=== PATIENT | female | born 1975 | race Caucasian/White ===

== ENCOUNTER 2023-05-01 16:07 | Outpatient (OUT) | payer OTHER, SELFPAY ==
--- NOTE | 2023-05-01 | XR_ITS ---
The [address] [address] Patient Name: AHMET DAVIDSON MRN: [id number] date: 1975 Sex: F Assigned Patient Location: [facility] Current Patient Location: Accession/Order Number: [id number] Exam Date: 05/01/2023 16:25 Report Date: 05/02/2023 07:13 At the request of: ALEX NESBITT Procedure: XR abdomen 1V EXAMINATION: XR abdomen 1V HISTORY: Kidney Stone follow-up COMPARISON: XR KUB 04/16/2022 FINDINGS: KIDNEY/URETER - RIGHT: No visible renal or ureteral calcifications. KIDNEY/URETER - LEFT: No visible renal or ureteral calcifications. PELVIS: Numerous pelvic calcifications; grossly stable and favoring phleboliths. No appreciable ureteral stones. BOWEL: No abnormal dilation or deviation. BONES: No acute abnormality. OTHER: Negative. No abnormal gaseous collections. XR/XR abdomen 1V IMPRESSION: 1. No appreciable urinary tract calculi. 2. Evaluation of kidneys is limited by dense overlying bowel content. Electronically authenticated by: MUSA MOORE Date: 05/02/2023 07:13
== END 2023-05-01 16:08 | disposition home or self-care (01) ==
LOC: RAD 16:11
PROVIDERS: PCP Family Medicine; Visit Provider Physician Assistant
DX: N20.0 Calculus of kidney (principal)
CPT/HCPCS: 74018

== ENCOUNTER 2023-09-16 08:47 | Outpatient (OUT) | payer OTHER, SELFPAY ==
--- NOTE | 2023-09-16 | CT_ITS ---
[address] [address] Patient Name: AHMET DAVIDSON MRN: [id number] date: 1975 Sex: F Assigned Patient Location: CT Current Patient Location: Accession/Order Number: [id number] Exam Date: 09/16/2023 10:10 Report Date: 09/18/2023 09:00 At the request of: RADHA ESPARZA Procedure: CT abdomen pelvis w con EXAMINATION: CT abdomen pelvis w con HISTORY: Kidney stones COMPARISON: No relevant comparison available. TECHNIQUE: Axial, Coronal, and Sagittal images were obtained without and/or with IV contrast as indicated by examination type. Dose reduction techniques were achieved by using automated exposure control and/or adjustment of mA and/or kV according to patient size and/or use of iterative reconstruction technique. FINDINGS: LUNG BASES: No visible pulmonary or pleural disease. LIVER: No enlargement, atrophy, suspicious density, or significant focal lesion. BILIARY: No dilatation or calcification. PANCREAS: No lesion, fluid collection, or abnormal duct dilatation. SPLEEN: No enlargement or focal lesion. ADRENALS: No mass or enlargement. KIDNEYS: Several nonobstructing 2 mm stones within left kidney. Unremarkable right kidney and bilateral ureters. No mass, obstruction, or calcification. BOWEL/MESENTERY: No visible mass, obstruction, or bowel wall thickening. Normal appendix. AORTA/VASCULAR: No aneurysm or dissection. RETROPERITONEUM: No mass or adenopathy. LYMPH NODES: No adenopathy. URINARY BLADDER: No visible focal wall thickening, lesion, or calculus. PELVIC ORGANS: Hysterectomy. ABDOMINAL WALL: No mass or hernia. BONES: No bony lesion or fracture. OTHER: Negative. CT/CT abdomen pelvis w con IMPRESSION: 1. Nonobstructing left nephrolithiasis. Electronically authenticated by: MUSA MOORE Date: 09/18/2023 09:00
--- OUTSIDE RECORDS SUMMARY | 2023-09-16 08:50 | XMS_ITS | CCD ---
Author Organization [facility] Care Team Providers Care Steeping Press Operator Name Role Phone MUSA EVANGELISTA Primary Care Physician DO Musa Evangelista Primary Care Provider MD Tsering Velez Attending Provider [phone] VIKTORIA BIRMINGHAM Admitting Unavailable JEAN CARLOS, DR VIGIL Primary Care Unavailable VIKTORIA BIRMINGHAM Attending Unavailable VIKTORIA BIRMINGHAM Consulting Unavailable JEAN CARLOS, DR VIGIL Primary Care Unavailable AGUSTIN, DR SANDERS Attending Unavailable AGUSTIN, DR SANDERS Consulting Unavailable AGUSTIN, DR SANDERS Admitting Unavailable JEAN CARLOS, DR VIGIL Primary Care Unavailable ISAIAS ., DR GARCIA Attending Unavailable ISAIAS ., DR GARCIA Consulting Unavailable ISAIAS ., DR GARCIA Admitting Unavailable NAMITA, DR WERNER Matthews Consulting Unavailable JEAN CARLOS, DR VIGIL Primary Care Unavailable AGUSTIN, DR SANDERS Attending Unavailable AGUSTIN, DR SANDERS Admitting Unavailable Viktoria [place] Unavailable Sandra Albarran Unavailable DO Musa Evangelista Primary Care Provider GEORGIA [place] Attending Provider ViscDO Emy merino Attending Provider Viktoria [place] Admitting Unavailable Viktoria [place] Attending Unavailable Musa Evangelista Primary Care Unavailable Musa Evangelista [facility] Care Unavailable Viscangelique, Emy Admitting Unavailable Viscangelique, Emy Attending Unavailable Tsering Velez Admitting Unavailable Tsering Velez Attending Unavailable Musa Evangelista [facility] Care Unavailable Viscangelique, Emy Attending Unavailable Musa Evangelista [facility] Care Unavailable Viscangelique, Emy Admitting Unavailable VISCAngelique, EMY Diaz Attending Unavailable ELIE, EMY Diaz Attending Unavailable TSERING VELEZ Referring Unavailable Marshall RIZVI Attending Unavailable BERNADETTE NESBITT Attending Marshall Liu Attending Unavailable Marshall RIZVI Admitting Unavailable Marshall RIZVI Attending Unavailable Marshall RIZVI Attending Unavailable BERNADETTE NESBITT Attending Celia Mcneal Primary Care Unavailable Celia Eason Attending Unavailable Unavailable Unavailable Unavailable Allergies Allergy Classification Reported Allergen(s) Allergy Type Date of Onset Reaction(s) Facility (20 sources) Azithromycin; Translations: [azithromycin] Drug Allergy 06-21-19 11 Vomiting (disorder), Diarrhea (finding) [facility] (6 sources) Sulfamethoxazole; Translations: [sulfamethoxazole ] Drug Allergy [facility] (5 sources) Sulfonamides (Antibiotic); Translations: [Sulfa (Sulfonamide Antibiotics)] Allergy to substance 07-29-19 23 Rash, Rash, [facility] (3 sources) Azithromycin; Translations: [Zithromax] Drug Allergy [facility] (2 sources) Sulfonamides (Antibiotic) Drug allergy (disorder) [facility] (9 sources) Substance with sulfonamide structure and antibacterial mechanism of action (substance) Drug allergy [facility] Other (1 source) Azithromycin Drug Allergy 06-22-19 24 [facility] Repository (1 source) Cephalosporins (Antibiotic); Translations: [cephalosporins] Propensity to adverse reactions to drug (disorder) [facility] Repository Medications Current Medications Medication Drug Class(es) Dates Sig (Normalized) Sig (Original) 0.5 ML semaglutide 0.5 MG/ML Auto-Injector [Wegovy] (6 sources) Start: 12-27-2022 Start: 12-27-2022 inject 0.5 mL by sub cutaneous injection every week Wegovy 0.25 MG/0.5ML 0.5 mL Subcutaneous weekly for 30 days Dec, Active inject 0.5 mL by sub cutaneous injection every week Wegovy 0.25 MG/0.5ML 0.5 mL Subcutaneous weekly for 30 days NOT COVERED Active acetaminophen 325 mg / HYDROcodone bitartrate 5 mg oral tablet (2 sources) Opioid Agonist Start: 01-19-2024 take 1 tablet by mouth every six hours Hydrocodone-Acetaminophen Active 1 TAB PO Q6H 12 July 07, 2023 atorvastatin 10 mg oral tablet (17 sources) HMG-CoA Reductase Inhibitor Start: 07-29-2022 take 10 mg by mouth once daily in the morning Atorvastatin Active 10 MG PO Every morning July 29, 2022 12:00am Start: 06-20-2019 atorvastatin O ral, Daily, Refills(s) 0 Start Date: 06/20/19 Status: Ordered Calcium (4 sources) Phosphate Binder, Calcium Start: 05-16-2011 Calcium 600+D Oral, BID, Refill(s) 0, Prophylaxis Start Date: 05/16/11 Status: Ordered calcium carbonate 1500 mg / cholecalciferol 200 unt oral tablet (3 sources) Vitamin D Start: 06-22-2023 take 1 tablet by mouth once daily at bedtime Calcium Carbonate-Vitami n D3 Active 1 TAB PO Daily at bedtime June 22, 2023 12:00am cephalexin 500 mg oral capsule (9 sources) Cephalosporin Antibacterial Start: 06-22-2023 take 500 mg by mouth twice daily Cephalexin Active 500 MG PO Twice daily June 22, 2023 3:54pm Start: 06-20-2023 take 1 tablet by juan th twice daily, then take 1 tablet by mouth once daily cephalexin 500 mg oral tablet See Instructions, Take one tab, twice a day for 2 weeks, then take one tab daily for 1 month., # 58 tab(s), Refills(s) 0, Pharmacy: [facility] #[id number], 172, cm, 06/20/23 15:54:00 EST, Height/Length Dosing, 84, kg, 06/20/23 15:54:00 EST, Weight Dosing Start Date: 06/20/23 Status: Ordered Start: 07-29-2022 End: 06-22-2023 take 500 mg by mouth every six hours Cephalexin Discontinued 500 MG PO Q6H 28 July 29, 2022 12:00am June 22, 2023 3:54pm glucosamine sulfate 500 mg oral tablet (3 sources) Start: 06-22-2023 take 1 tablet by mouth twice daily Glucosamine Sulfate (Glucosamine) 500 mg Tablet Active 500 MG PO Twice daily June 22, 2023 12:00am lactobacillus acidophilus [id number] unt oral capsule (3 sources) Start: 06-22-2023 take 10 capsules by mouth once daily in the morning Lactobacillus Acidophilus (Probiotic) 10 billion cell Capsule Active 10 CELL PO Every morning June 22, 2023 12:00am levothyroxine sodium 0.05 mg oral tablet (17 sources) l-Thyrox ine Start: 07-29-2022 take 50 ug by mouth once daily in the morning Levothyroxine Active 50 MCG PO Every morning July 29, 2022 12:00am Start: 04-24-2020 levothyroxine 50 mcg (0.05 mg) Tab Refills(s) 0 Start Date: 04/24/20 Status: Ordered 3 ml liraglutide 6 mg/ml pen injector (10 sources) GLP-1 Receptor Agonist Start: 06-22-2023 Liraglutide (Victoza 3-Julius) 0.6 mg/0.1 mL (18 mg/3 mL) pen injector Active 1.2 MG SUBCUT Every morning June 22, 2023 12:00am Start: 05-02-2023 Victoza 6 mg/m L subcutaneous injection Refills(s) 0 Start Date: 05/02/23 Status: Ordered Start: 02-15-2023 inject 0.6 mg by sub cutaneous injection once daily, then inject 1.8 mg by subcutaneous injection once daily Victoza 18 MG/3ML 0.6 mg Subcutaneous daily for 30 days increase weekly by 0.6 mg to max dose of 1.8 mg daily Hold escalating for toleration issues and call prescriber for instructions. Jan, Active inject 1.8 mg by sub cutaneous injection once daily Victoza 18 MG/3ML 1.8 mg Subcutaneous daily for 30 days Active Magnesium glycinate (3 sources) Start: 06-22-2023 take 3000 mg by mouth once daily at bedtime Magnesium Glycinate Active 3000 MG PO Daily at bedtime June 22, 2023 12:00am 24 hr metFORMIN hydrochloride 500 mg extended release oral tablet (14 sources) Biguanide Start: 06-22-2023 take 1000 mg by mouth twice daily Metformin Active 1000 MG PO Twice daily June 22, 2023 12:00am Start: 05-02-2023 metformin Oral Start Date: 05/02/23 Status: Ordered Start: 12-06-2022 take 2 tablets by [facility] twice daily at mealtime, then take 2 tablets by mouth twice daily at mealtime metFORMIN HCl ER 500 MG 2 tabs twice daily with meals Orally twice daily for 30 days Start 1 tab daily increasing weekly to 2 tabs twice daily with meals. Hold at tolerated dose if side effects Nov, Active Start: 12-06-2022 Multi For Her - (9 sources) Multi For Her - as directed Orally Active Multivitamin preparation (3 sources) Start: 06-22-2023 take 1 tablet by mouth once daily in the morning Multivitamin Active 1 TAB PO Every morning June 22, 2023 12:00am 24 hr oxybutynin chloride 10 mg extended release oral tablet (15 sources) Cholinergic Muscarinic Antagonist Start: 07-29-2022 take 1 tablet by mouth once daily oxybutynin 10 mg ER Tab 10 mg = 1 tab(s), Oral, Daily, # 30 tab(s), Refills(s) 11, Pharmacy: [facility] #[id number], 172, cm, 05/02/23 15:11:00 EST, Height/Length Dosing, 84, kg, 05/02/23 15:11:00 EST, Weight Dosing Start Date: 05/23/23 Status: Ordered Potassium Bicarb-Citric Acid (Klor-Con/Ef) 25 mEq tablet, effervescent (4 sources) Start: 07-29-2022 Potassium Bicarb-Citric Acid (Klor-Con/Ef) 25 mEq tablet, effervescent Active 25 MEQ PO Twice daily July 29, 2022 12:00am probiotic (9 sources) probiotic as dir ected Active sertraline 100 mg oral tablet (17 sources) Serotonin Reuptake Inhibitor Start: 05-16-2011 take 1 tablet by mouth once daily Zoloft 100 mg Tab 100 mg = 1 tab(s), Oral, Daily, tab(s), Refills(s) 0, Depression Start Date: 05/16/11 Status: Ordered Completed/Discontinued Medications Medication Drug Class(es) Dates Sig (Normalized) Sig (Original) ciprofloxacin 500 mg oral tablet (2 sources) Quinolone Antimicrobial Start: 05-02-2023 Cipro 500 mg Tab 500 mg = 1 tab(s), Oral, As Directed, Pt to take 1 tab the day before procedure and the 2nd tab the day of procedure once completed., # 2 tab(s), Refills(s) 0, Pharmacy: [id number], 172, cm, 05/02/23 15:11:00 EST, Height/Length Dosing, 84, kg, 05/02/23 15:11:00 EST, Weight Dosing Start Date: 05/02/23 Status: Ordered Effer-K 25 mEq oral tablet, effervescent (2 sources) Start: 04-26-2022 take 1 tablet by mouth twice daily Effer-K 25 mEq oral tablet, effervescent 25 mEq = 1 tab(s), Oral, BID, # 60 tab(s), Refills(s) 11, Pharmacy: [facility] #[id number], 172, cm, 02/19/21 8:12:00 EDT, Height/Length Dosing, 84.5, kg, 02/19/21 8:12:00 EDT, Weight Dosing Start Date: 04/26/22 Status: Ordered ibuprofen 800 mg oral tablet (4 sources) Nonsteroidal Anti-inflammatory Drug Start: 07-29-2022 End: 06-22-2023 take 800 mg by mouth four times daily Ibuprofen Discontinued 800 MG PO Four times daily July 29, 2022 12:00am June 22, 2023 3:48pm K-Effervescent 25 mEq oral tablet, effervescent (2 sources) Start: 04-22-2023 End: 04-16-2024 take 1 tablet by mouth twice daily K-Effervescent 25 mEq oral tablet, effervescent 25 mEq = 1 tab(s), Oral, BID, X 30 day(s), # 60 tab(s), Refills(s) 11, Pharmacy: [facility] #[id number], 172, cm, 04/27/22 15:12:00 EST, Height/Length Dosing, 84, kg, 04/27/22 15:12:00 EST, Weight Dosing Start Date: 04/22/23 Stop Date: 04/16/24 Status: Ordered potassium bicarbonate 25 meq effervescent oral tablet (11 sources) Start: 04-26-2022 take 1 tablet by mouth twice daily Effer-K 25 mEq oral tablet, effervescent 25 mEq = 1 tab(s), Oral, BID, # 60 tab(s), Refills(s) 11, Pharmacy: [facility] #[id number], 172, cm, 02/19/21 8:12:00 EDT, Height/Length Dosing, 84.5, kg, 02/19/21 8:12:00 EDT, Weight Dosing Start Date: 04/26/22 Status: Ordered Vitamin D 50,000 intl units (1.25 mg) oral capsule (4 sources) Start: 05-16-2011 Vitamin D 50,000 intl units (1.25 mg) oral capsule 50,000 International_Unit = 1 cap(s), Oral, q7day, cap(s), Refills(s) 0, Prophylaxis Start Date: 05/16/11 Status: Ordered wegovy 0.25 mg/0.5ml solution auto-injector (3 sources) inject 0.5 mL by subcutaneous injection every week as needed Wegovy 0.25 MG/0.5ML 0.5 mL Subcutaneous weekly for 30 days NOT COVERED Not-Taking/PRN Problems Active Problems Problem Classification Problem Date Documented Da te Episodic/Chronic Calculus of urinary tract (7 sources) Kidney stone; Translations: [Calculus of kidney] Onset: 04-20-2022 Episodic Cancer of breast (4 sources) Malignant tumor of breast 08-30-2013 Chronic Cancer of breast (13 sources) Personal history of primary malignant neoplasm of breast; Translations: [Personal history of malignant neoplasm of breast] Episodic Diabetes mellitus without complication (7 sources) Other abnormal glucose; Translations: [Prediabetes] Onset: 11-14-2022 Episodic Disorders of lipid metabolism (20 sources) Hyperlipidemia; Translations: [Hyperlipidemia, unspecified] Onset: 11-11-2022 06-20-2019 Chronic Genitourinary symptoms and ill-defined conditions (7 sources) Urge incontinence; Translations: [Urge incontinence of urine] Onset: 04-20-2022 Chronic Genitourinary symptoms and ill-defined conditions (16 sources) Blood in urine; Translations: [Increased frequency of urination] 06-20-2019 Episodic Menopausal disorders (1 source) Postmenopausal bleeding; Translations: [Postmenopausal bleeding] Onset: 07-29-2022 Chronic Menstrual disorders (1 source) Excessive and frequent menstruation with regular cycle; Translations: [Excessive and frequent menstruation with regular cycle] Onset: 07-07-2023 Chronic Non-Hodgkin`s lymphoma (4 sources) Diffuse non-Hodgkin's lymphoma, lymphoblastic (clinical) 08-30-2013 Chronic Nutritional deficiencies (15 sources) Vitamin D deficiency; Translations: [Vitamin D deficiency, unspecified] Chronic Other bone disease and musculoskeletal deformities (4 sources) Osteopenia 08-30-2013 Episodic Other diseases of bladder and urethra (1 source) Male urethral stricture; Translations: [Unspecified urethral stricture, male, unspecified site] Onset: 06-14-2023 Episodic Other diseases of bladder and urethra (2 sources) Urethral stricture 05-02-2023 Episodic Other nervous system disorders (2 sources) Acute postoperative pain; Translations: [Other acute postprocedural pain] 07-07-2023 Episodic Other nervous system disorders (1 source) Other acute postprocedural pain; Translations: [Other acute postprocedural pain] Onset: 07-07-2023 Episodic Other nutritional; endocrine; and metabolic disorders (10 sources) Obesity, unspecified; Translations: [Obesity, unspecified] Onset: 11-14-2022 Chronic Other nutritional; endocrine; and metabolic disorders (20 sources) Obesity; Translations: [Obesity, unspecified] 08-08-2023 Chronic Other nutritional; endocrine; and metabolic disorders (9 sources) Body mass index 40+ - severely obese; Translations: [Body mass index (BMI) 40.0-44.9, adult] Chronic Other nutritional; endocrine; and metabolic disorders (9 sources) Body mass index 30+ - obesity; Translations: [Body mass index (BMI) 30.0-30.9, adult] Chronic Other nutritional; endocrine; and metabolic disorders (1 source) Body mass index (BMI) 30.0-30.9, adult Chronic Other nutritional; endocrine; and metabolic disorders (1 source) Body mass index (BMI) 29.0-29.9, adult Episodic Other nutritional; endocrine; and metabolic disorders (2 sources) Body mass index (BMI) 28.0-28.9, adult; Translations: [Body Mass Index 28.0-28.9, adult] Episodic Other nutritional; endocrine; and metabolic disorders (1 source) Overweight in adulthood with body mass index of 25 or more but less than 30; Translations: [Body mass index (BMI) 28.0-28.9, adult] 08-08-2023 Episodic Residual codes; unclassified (4 sources) Family history of diabetes mellitus Episodic Residual codes; unclassified (1 source) Acquired absence of both cervix and uterus; Translations: [Acquired absence of both cervix and uterus] 08-08-2023 Episodic Thyroid disorders (20 sources) Hypothyroidism; Translations: [Thyroid nodule] 04-24-2020 Chronic Unclassified (1 source) Encounter for preprocedural laboratory examination; Translations: [Encounter for preprocedural laboratory examination] Onset: 06-22-2023 Unclassified (1 source) Dietary counseling and surveillance; Translations: [Dietary counseling and surveillance] Onset: 06-13-2023 Urinary tract infections (11 sources) Chronic cystitis; Translations: [Other chronic cystitis without hematuria] Onset: 04-16-2022 Chronic Past or Other Problems Problem Classification Problem Date Documented Da te Episodic/Chronic Other endocrine disorders (1 source) Endocrine disorder, unspecified; Translations: [ENDOCRINE DISORDER UNSPECIFIED] Onset: 04-20-2022 Episodic Unclassified (4 sources) STRESS FRACTURE RIGHT ANKLE 05-16-2011 Results Test Name Value Interpretation Reference Range Facility Outside [facility] 08-28-2023 Outside Records [id number]. [facility] C Urineon 08-25-2023 Bacteria identified Cx Nom (U) Microbiology PROCEDURE: Urine Culture [R1] SOURCE: U CleanCatch BODY SITE: COLLECTED DATE/TIME: 08/22/2023 10:48 EST RECEIVED DATE/TIME: 08/22/2023 18:04 EST START DATE/TIME: 08/22/2023 18:04 EST FREE TEXT SOURCE: ISAIAS SMITH, Marshall RIZVI MD, Marshall Conti FINAL REPORTS Final Report [] Verified Date/Time: 08/25/2023 11:33 EST >100,000 cfu/ml Escherichia coli <10,000 cfu/ml Mixed skin contaminants SUSCEPTIBILITY RESULTS __ LEGEND: S=Susceptible, N/R=Not Reported, Blank=Data not available, or drug not advisable or tested, I=Intermediate, ESBL=Extended spectrum beta-lactamase, R=Resistant, TFG=Thymidine-dependen t strain, PHILIP=Beta-lactamase positive, ARMEN=mcg/m;(mg/L), S*=Predicted susceptible interp, R*=Predicted resistant interp EC Antibiotic ARMEN Dilutn ARMEN Interp Amikacin <=16 S Ampicillin <=8 S Ampicillin/ <=8/4 S Sulbactam Aztreonam <=4 S Cefazolin <=2 S Cefepime <=2 S Cefoxitin <=8 S Ceftazidime <=1 S Ceftazidime/ <=8 S Avibactam Ceftriaxone <=1 S Ciprofloxacin >2 R Ertapenem <=0.5 S Gentamicin <=4 S Levofloxacin >4 R Meropenem <=1 S Nitrofurantoin >64 R Piperacillin/ <=16 S Tazobactam Tetracycline <=4 S Tigecycline <=2 S Tobramycin <=4 S Trimethoprim/ <=2/38 S Sulfa Performing Locations R1: This test was performed at: [facility], [address] [place] [address], [facility] , , [facility] Comment on above: Performed By: #### 2 [id number] ####[place] [address] Lab - Other Lab [facility] Lab - Other Lab Results [id number] [facility] Ambulatory Visit Summaryon 0 08-21-2023 Ambulatory Visit Summary NICOLETTE EVANGELISTA :1975 Visit Date:08/21/2023 Ambulatory Visit Instructions Your Diagnosis Chronic cystitis Your Care Team Attending Physician - ISAIAS SMITH, Marshall Conti Primary Care Physician - MUSA EVANGELISTA DO This Is Your Medications List atorvastatin calcium-vitamin D (Calcium 600+D) cephalexin (cephalexin 500 mg oral tablet) ciprofloxacin (Cipro 500 mg Tab) ergocalciferol (Vitamin D 50,000 intl units (1.25 mg) oral capsule) levothyroxine (levothyroxine 50 mcg (0.05 mg) Tab) liraglutide (Victoza 6 mg/mL subcutaneous injection) metformin oxybutynin (oxybutynin 10 mg ER Tab) potassium bicarbonate (Effer-K 25 mEq oral tablet, effervescent) potassium bicarbonate (K-Effervescent 25 mEq oral tablet, effervescent) sertraline (Zoloft 100 mg Tab) Procedures Performed Cystourethroscopy with dilation of urethral stricture (06/20/2023), Cystoscopy (07/16/2019), Cystourethroscopy with dilation of urethral stricture (07/16/2019), BILATERAL MASTECTOMY WITH TISSUE AIR MOVING TECHNICIAN INSERTION, bladder suspension, ESWL KIDNEY STONE X2, LEFT KNEE RECONSTRUCTIVE SURGERY, PARATHYROID GLAND EXCISION, Part of lobe of thyroid gland. What to do next Scheduled Follow-Up Appointments Monday. 2023 2:45 PM EDT With: ISAIAS SMITH, Marshall Conti Where: [facility] HCG ( test) IA.rapi d Ql (U)Ordered By: Jesús Andrew on 07-07-2023 HCG ( test) Ql (U) Negative [facility] HCG,Urineon 07-07-2023 Beta HCG ( test) Ql (U) Negative [facility] Comment on above: Result Comment: PERF ORMED BY: [facility] [address] [place] [address] PATHOLOGIST BEHAVIORAL ASSISTANT GRACY BARRY M.D. Performed By: #### U HCG #### [facility] [address] [id number] [place] Kermit 07-07-2023 L Specimen: [id number] Received: 07/07/23 Status: SUBHASH Valdes Num: [id number] Spec Type: Surgical Subm Dr: Emy Delgadillo DO Tissues: A Uterus w/ or w/o tubes ovaries except neoplastic or prolap (CERVIX, MARIS TU Procedures: HE/12, Gross/Micro L5 Age/ Patient Sex Location Account Attending Physician Nicolette Evangelista 48/F OR [id number] Emy Delgadillo DO SPEC NUM: [id number] RECD: 07/07/23 STATUS: SUBHASH VALDES NUM: [id number] UMESH: 07/07/[address]: Emy Delgadillo DO ENTERED: 07/07/[address] [facility] [address]: SPEC TYPE: Surgical DEPT: S ORDERED: HE/, Gross/Micro L5 ORDERED: HE, Gross/Micro L5 Pathological Diagnosis Uterus, cervix, bilateral adnexa, complete hysterectomy: Fundus: - Benign proliferative phase endometrium with no hyperplasia or chronic endometritis. - Multiple benign leiomyomata. Cervix: - Unremarkable endocervical and ectocervical mucosa. Bilateral adnexa: - Unremarkable fallopian tubes with small benign paratubal cysts. - Senescent, benign ovaries. Clinical Information Menorrhagia, enlarged fibroid uterus Gross Description Received in formalin labeled with the patient's name, date of and uterus, cervix, bilateral tubes and ovaries is a 9.8 x 7 x 6.2 cm uterus with attached bilateral adnexa. After removal of the adnexa, the uterus is 192 g. The serosa is pink-dyson and glistening with multiple subserosal nodules predominantly along the fundic and posterior aspect. The largest subserosal nodule is 2.1 cm in greatest dimension. The cervix is 3.5 cm in diameter and demonstrates pink-white glistening ectocervical mucosa. There is a 1.3 cm linear os and a discrete transition zone leading into a 3.2 cm long endocervical canal. The endometrial cavity is 4.2 cm cornu to cornu by 4.5 cm fundus to lower uterine segment. The endometrium is 0.1 cm thick red-brown and velvety. The myometrium is 3 cm in average thickness with ---- Specimen: [id number] Received: 07/07/23 Status: SUBHASH Valdes Num: [id number] Spec Type: Surgical Subm Dr: Emy Delgadillo DO Tissues: A Uterus w/ or w/o tubes ovaries except neoplastic or prolap (CERVIX, MARIS TU Procedures: , Gross/Micro L5 ---- Patient: Nicolette Evangelista [id number] (Continued) ---- Specimen: [id number] Received: 07/07/23 (Continued) Gross Description (Continued) Signed (signature on file) Erin Cardenas MD 07/10/23 1302 ---- Specimen: [id number] Received: 07/07/23 Status: SUBHASH Valdes Num: [id number] Spec Type: Surgical Subm Dr: Emy Delgadillo, Tissues: A Uterus w/ or w/o tubes ovaries except neoplastic or prolap (CERVIX, MARIS TU Procedures: , Gross/Micro L5 ---- Patient: Nicolette Evangelista [id number] (Continued) ---- Specimen: [id number] Received: 07/07/23 (Continued) Gross Description (Continued) multiple well-circumscribed white-dyson to dyson whorled nodules up to 2.5 cm in greatest dimension. The largest nodule is located anteriorly and demonstrates a small amount of central yellow softening potentially representing necrosis. Additionally, the myometrium is vaguely whorled and trabeculated throughout. The right adnexa is 8 g and consists of a 7 cm long by 0.6 cm diameter segment of fimbriated fallopian tube and a 2.5 x 1.8 x 1.2 cm ovary. The left adnexa is 10 g and consists of a 6.2 cm long by 0.7 cm diameter segment of fimbriated fallopian tube and a 3.2 x 2.5 x 1.5 cm ovary. Bilaterally, the serosa fallopian tubes is purple-dyson and glistening. The fimbria are purple-dyson lush, prominent, but otherwise unremarkable. Within the left ovary is a prominent 2 cm diameter unilocular cyst filled with thin red-brown fluid. Solar Engineer sections are submitted in 12 cassettes as follows: A1 - Posterior cul-de-sac serosa and sections of 2 largest intramural nodules A2 - Cervix (anterior and posterior) A3-A4 - Anterior endomyometrium with intramural nodules (largest with potential necrosis in A4 A5-A6 - Intramural nodules A7-A9 - Right adnexa with fimbria entirely submitted A10-A12 - Left adnexa with fimbria entirely submitted CPT Codes 63869 ---- ---- (more content not included)... Normal [facility] Lab - Other Lab [facility] - Other Lab Results [id number] [facility] Outside [facility] 07-07-2023 Outside Records [id number] [facility] Lab - Other Lab [facility] Lab - Other Lab Results [id number]. [id number] [facility] Basophils Auto (Bld) [#/Vol] Ordered By: Emy Delgadillo on 06-22-2023 Basophils (Bld) [#/Vol] 0.0 10*3/uL 0.0-0.2 [facility] Basophils/100 WBC Auto (Bld) Ordered By: Emy Delgadillo on 06-22-2023 Basophils/100 WBC (Bld) 0.4 % . [facility] Complete Blood Count Auto Di ffon 06-22-2023 Basophils (Bld) [#/Vol] 0.0 10*3/uL Normal 0.0-0.2 [facility] Comment on above: Result Comment: PERF ORMED BY: [place] [address] PATHOLOGIST BEHAVIORAL ASSISTANT GRACY BARRY M.D. Performed By: #### C BC #### [address] Basophils/100 WBC (Bld) 0.4 % Normal . [facility] Comment on above: Performed By: #### C BC #### [address] Eosinophils (Bld) [#/Vol] 0.1 10*3/uL Normal 0.0-0.45 [facility] Comment on above: Performed By: #### C BC #### [address] Eosinophils/100 WBC (Bld) 0.7 % Normal . [facility] Comment on above: Performed By: #### C BC #### [address] Erythrocyte distribution width (RBC) [Ratio] 13.7 % Normal 11.9-15.3 [facility] Comment on above: Performed By: #### C BC #### [address] Hematocrit (Bld) [Volume fraction] 41.9 % Normal 34.0-46.4 [facility] Comment on above: Performed By: #### C BC #### [address] Hemoglobin (Bld) [Mass/Vol] 14.1 g/dL Normal 11.8-15.4 [facility] Comment on above: Performed By: #### C BC #### [place] [address] [place] Lymphocytes (Bld) [#/Vol] 2.4 10*3/uL Normal 1.00-4.8 [facility] Comment on above: Performed By: #### C BC #### [address] Lymphocytes/100 WBC (Bld) 25.2 % Normal . [facility] Comment on above: Performed By: #### C BC #### [address] MCH (RBC) [Entitic mass] 30.4 pg Normal 24.7-34.3 [facility] Comment on above: Performed By: #### C BC #### [address] MCV (RBC) [Entitic vol] 90.2 fL Normal 80-100 [facility] Comment on above: Performed By: #### C BC #### [address] Mean Corpuscular HGB Conc 33.8 g/dL Normal 32.0-35.0 [facility] Comment on above: Performed By: #### C BC #### [address] Monocytes (Bld) [#/Vol] 0.5 10*3/uL Normal 0.0-0.8 [facility] Comment on above: Performed By: #### C BC #### [address] Monocytes/100 WBC (Bld) 4.9 % Normal . [facility] Comment on above: Performed By: #### C BC #### [address] Neutrophils (Bld) [#/Vol] 6.4 10*3/uL Normal 1.8-7.7 [facility] Comment on above: Performed By: #### C BC #### [address] Neutrophils/100 WBC (Bld) 68.8 % Normal . [facility] Comment on above: Performed By: #### C BC #### [facility] [address] NRBC% 0.0 /100{WBC} Normal 0-0.5 [facility] Comment on above: Performed By: #### C BC #### [facility] [address] Platelet mean volume (Bld) [Entitic vol] 7.8 fL Normal 6.3-10.7 [facility] Comment on above: Performed By: #### C BC #### [facility] [address] Platelets (Bld) [#/Vol] 283 10*3/uL Normal 150-450 [facility] Comment on above: Performed By: #### C BC #### [address] RBC (Bld) [#/Vol] 4.64 10*6/uL Normal 3.60-5.00 [facility] Comment on above: Performed By: #### C BC #### [address] WBC (Bld) [#/Vol] 9.3 10*3/uL Normal 3.8-11.6 [facility] Comment on above: Performed By: #### C BC #### [facility] [address] [place] [address] Eosinophils Auto (Bld) [#/Vo l]Ordered By: Emy Delgadillo on 06-22-2023 Eosinophils (Bld) [#/Vol] 0.1 10*3/uL 0.0-0.45 [facility] Eosinophils/100 WBC Auto (Bl d)Ordered By: Emy Delgadillo on 06-22-2023 Eosinophils/100 WBC (Bld) 0.7 % . [facility] Erythrocyte distribution wid th Auto (RBC) [Ratio]Ordered By: Emy Delgadillo on 06-22-2023 Erythrocyte distribution width (RBC) [Ratio] 13.7 % 11.9-15.3 [facility] Hematocrit Auto (Bld) [Volum e fraction]Ordered By: Emy Delgadillo on 06-22-2023 Hematocrit (Bld) [Volume fraction] 41.9 % 34.0-46.4 [facility] Hemoglobin [Mass/volume] in BloodOrdered By: Emy Delgadillo on 06-22-2023 Hemoglobin (Bld) [Mass/Vol] 14.1 g/dL 11.8-15.4 [facility] Leukocytes [#/volume] correc tom for nucleated erythrocytes in Blood by Automated counOrdered By: Emy Delgadillo on 06-22-2023 WBC corrected for nucl RBC Auto (Bld) [#/Vol] 9.3 10*3/uL 3.8-11.6 [facility] Lymphocytes Auto (Bld) [#/Vo l]Ordered By: Emy Delgadillo on 06-22-2023 Lymphocytes (Bld) [#/Vol] 2.4 10*3/uL 1.00-4.8 [facility] Lymphocytes/100 WBC Auto (Bl d)Ordered By: Emy Delgadillo on 06-22-2023 Lymphocytes/100 WBC (Bld) 25.2 % . [facility] MCH Auto (RBC) [Entitic mass ]Ordered By: Emy Delgadillo on 06-22-2023 MCH (RBC) [Entitic mass] 30.4 pg 24.7-34.3 [facility] MCHC Auto (RBC) [Mass/Vol]Or dered By: Emy Delgadillo on 06-22-2023 MCHC (RBC) [Mass/Vol] 33.8 g/dL 32.0-35.0 [facility] MCV Auto (RBC) [Entitic vol] Ordered By: Emy Delgadillo on 06-22-2023 MCV (RBC) [Entitic vol] 90.2 fL 80-100 [facility] Monocytes Auto (Bld) [#/Vol] Ordered By: Emy Delgadillo on 06-22-2023 Monocytes (Bld) [#/Vol] 0.5 10*3/uL 0.0-0.8 [facility] Monocytes/100 WBC Auto (Bld) Ordered By: Emy Delgadillo on 06-22-2023 Monocytes/100 WBC (Bld) 4.9 % . [facility] Neutrophils Auto (Bld) [#/Vo l]Ordered By: Emy Delgadillo on 06-22-2023 Neutrophils (Bld) [#/Vol] 6.4 10*3/uL 1.8-7.7 [facility] Neutrophils/100 WBC Auto (Bl d)Ordered By: Emy Delgadillo on 06-22-2023 Neutrophils/100 WBC (Bld) 68.8 % . [facility] Nucleated erythrocytes [Pres ence] in Blood by Automated countOrdered By: Emy Delgadillo on 06-22-2023 Nucleated RBC Auto Ql (Bld) 0.0 /100{WBC} 0-0.5 [facility] PST Type and Screenon 2023 ABO and Rh group Nom (Bld) Blood group B Rh(D) positive Normal [facility] Comment on above: Order Comment: Date of Surgery: [id number] Result Comment: PERF ORMED BY: [facility] [address] [place] [address] PATHOLOGIST BEHAVIORAL ASSISTANT GRACY BARRY M.D. Platelet mean volume Auto (B ld) [Entitic vol]Ordered By: Emy Delgadillo on 06-22-2023 Platelet mean volume (Bld) [Entitic vol] 7.8 fL 6.3-10.7 [facility] Platelets Auto (Bld) [#/Vol] Ordered By: Emy Delgadillo on 06-22-2023 Platelets (Bld) [#/Vol] 283 10*3/uL 150-450 [facility] Pre-Certification Formon Pre-Certification Form [id number]#1.0 0TIFF Normal [facility] RBC Auto (Bld) [#/Vol]Ordere d By: Emy Delgadillo on 06-22-2023 RBC (Bld) [#/Vol] 4.64 10*6/uL 3.60-5.00 [facility] WBC Auto (Bld) [#/Vol]Ordere d By: Emy Delgadillo on 06-22-2023 WBC (Bld) [#/Vol] 9.3 10*3/uL 3.8-11.6 [facility] Consent for Procedure/Surger yon 06-21-2023 Consent for Procedure/Surgery [id number]#1.0 0TIFF [facility] Urology Office/Clinic Noteon 06-20-2023 Urology Office/Clinic Note Chief Complaint Cysto/UD HPI Staff 48 year old female here for Cysto/ID History of Present Illness Tests reviewed: none. I have reviewed the previous health record information and history for this patient from Joselyn Nesbitt PA-C. I have reviewed and verified the staff HPI to be accurate for this encounter. There have been no associated fever, chills, flank pain, or blood in the urine. Denies any urinary infections since last encounter. Review of Systems PHQ Score Initial Depression Screen Score: 0 SCORE ROS - Provider Constitutional: denies weight loss, denies hot flashes. Eyes: denies eye problems. Gastrointestinal: denies nausea, denies vomiting. Cardiovascular: denies chest pain or angina. Integumentary: no dryness Musculoskeletal: denies musculoskeletal symptoms. ENMT: denies otolaryngeal symptoms. Respiratory: no shortness of breath. Heme/Lymph: denies easy bleeding tendency, denies easy bruising tendency. Psychiatric: no confusion, no anxiety. Genitourinary: See HPI. Physical Exam Vitals & Measurements HT: 68 in HT: 172 cm WT: 84 kg WT: 184.8 lb BMI: 28.39 General Appearance: alert , no acute distress, well nourished, well developed female. Procedure Operative Information Anesthesia Type: Local Procedure: Local Cystoscopy with Urethral Dilation Complications: None Surgical risks, benefits, details of the procedure have been explained to the patient. Full informed consent has been obtained. Intraoperative Information Prepped: Patient is brought back to the endoscopy suite. Patient is placed in supine/frog leg position. Patient prepped in the usual fashion with Betadine solution. 2% Xylocaine Jelly is placed per Urethra. After waiting several minutes, the Cystoscope is introduced. The Urethra is: Tight The Bladder: diffuse red and inflamed. inflammatory debris, no tumors, large uterine imprint, Trabeculated: None (0) The Ureteral orifices: Show efflux of clear urine The Urethra was dilated to: 20-30 Jamaican with sounds. Specimens Removed: None Removal: Cystoscope is removed. The patient tolerated it well. Postoperative Information Patient is discharged home with antibiotic coverage. Follow up arranged. Assessment/Plan 1. Urethral stricture (N35.919: Unspecified urethral stricture, male, unspecified site) S/p cysto/UD 06/26/19. Has noticed her stream becoming weaker, hesitancy, some straining. PVR 240 mL however pt states she had to strain to give urine sample since she did not have to go when she was asked for UA. stricture could be attributing to recurrent UTIS Pt had IO cysto/UD done today without complications. Prophylactic abx taken prior to procedure. Follow up in 4 mos. All questions/concerns were discussed. Pt to call the office if she encounters any issues prior. Pt acknowledges understanding. -See Procedure Documentation. 2. Chronic cystitis (N30.20: Other chronic cystitis without hematuria) 03/28/23 - >100k E Coli, given Keflex UA 04/19/23 cloudy urine, positive nitrates, blood and leuks. Started on Ampicillin 500mg which she is still taking. No culture was done. UA today trace-intact blood, her bladder seems badly infected. -Will start Cephalexin 500mg BID x 2weeks and QD for 1 mos. -Pt will give urine sample in 2 mos. -See #1. 3. Kidney stones (N20.0: Calculus of kidney) Metabolic w/up 02/08/21 shows significant low volume KUB done on 04/16/22 showed no urinary calculi. KUB 05/01/23 neg for obvious stones. Pt continues taking Effer-K 25mEq BID. no side effects. -Cont taking Effer-K 4. Urge incontinence (N39.41: Urge incontinence) BBS 16 Intermittent leakage. Occasionally wears a pad or liner. Oxybutynin was increased from 5mg IR to 10mg ER last visit. Feels overall it is helping but wishes worked better. Don't want to increase further right now as her PVR is high today and she's having trouble emptying and we suspect her stricture is back. will reassess after UD. if flow improved/PVR improved we could consider increasing dose or switching to alternative med. -Cont Oxybutynin for now. Reassess after UD. -See #1 Follow-up With When Contact Information LAZ FLEMING, JOSELYN Clark, URL In 4 months [address] [place] [address] Additional Instructions: Patient Education I, Ara Mabry , personally scribed for Dr. Rizvi on 06/20/2023 16:39:14. . Documentation recorded by the scribe, Ara Mabry, accurately reflects the services(s) I performed and decisions made by me. Problem List/Past Medical History Ongoing Chronic cystitis Frequency of urination Hematuria Hyperlipidemia Hypothyroidism Kidney stones Nocturia Poor urinary stream Urethral stricture Urge incontinence Historical Breast cancer Lymphoblastic lymphoma Osteopenia STRESS FRACTURE RIGHT ANKLE Procedure/Surgical History Cystourethroscopy with dilation of urethral s (more content not included)... Normal [facility] Comment on above: Result Comment: Elec tronically Signed By: ISAIAS SMITH, Marshall Conti\.br\Date and Time Signed: 06/20/23 16:42 EST\.br\Electronically Co-Signed By: Ara Mabry\.br\Date and Time Co-Signed: 06/20/23 16:39 EST Insurance Correspondenceon 08-16-2022 Insurance Correspondence [id number]. 00TIFF [facility] RAD - MISCon 05-10-2023 RAD - MISC [id number]#1.0 0TIFF [facility] Lab Reportson 05-03-2023 Lab Reports [id number]. 00TIFF [facility] Lab Reports [id number]#1. 00TIFF [facility] Outside Recordson 05-03-2023 Outside Records [id number] .00OTGTIFF [facility] RAD - Ultrasound Reporton RAD - Ultrasound Report [id number]#1. 00TIFF Normal [facility] Screenson 05-03-2023 Screens [id number]#[id number] TIFF Normal [facility] Patient Educationon 05-02-20 23 Patient Education Urology Urethral Stricture Urethral stricture is narrowing of the tube (urethra) that carries urine from the bladder out of the body. The urethra can become narrow due to scar tissue from an injury or infection. This can make it difficult to pass urine. In women, the urethra opens above the vaginal opening. In men, the urethra opens at the tip of the penis, and the urethra is much longer than it is in women. Because of the length of the male urethra, urethral stricture is much more common in men. This condition is treated with surgery. What are the causes? In both men and women, common causes of urethral stricture include: ? Urinary tract infection (UTI). ? Sexually transmitted infection (STI). ? Use of a tube placed into the urethra to drain urine from the bladder (urinary catheter). ? Urinary tract surgery. In men, common causes of urethral stricture include: ? A severe injury to the pelvis. ? Prostate surgery. ? Injury to the penis. In many cases, the cause of urethral stricture is not known. What increases the risk? You are more likely to develop this condition if you: ? Are male. Men who have had prostate surgery are at risk of developing this condition. ? Use a urinary catheter. ? Have had urinary tract surgery. What are the signs or symptoms? The main symptom of this condition is difficulty passing urine. This may cause decreased urine flow, dribbling, or spraying of urine. Other symptom of this condition may include: ? Frequent UTIs. ? Blood in the urine. ? Pain when urinating. ? Swelling of the penis in men. ? Inability to pass urine (urinary obstruction). How is this diagnosed? This condition may be diagnosed based on: ? Your medical history and a physical exam. ? Urine tests to check for infection or bleeding. ? X-rays. ? Ultrasound. ? Retrograde urethrogram. This is a type of test in which dye is injected into the urethra and then an X-ray is taken. ? Urethroscopy. This is when a thin tube with a light and camera on the end (urethroscope) is used to look at the urethra. How is this treated? This condition is treated with surgery. The type of surgery that you have depends on the severity of your condition. You may have: ? Urethral dilation. In this procedure, the narrow part of the urethra is stretched open (dilated) with dilating instruments or a small balloon. ? Urethrotomy. In this procedure, a urethroscope is placed into the urethra, and the narrow part of the urethra is cut open with a surgical blade inserted through the urethroscope. ? Open surgery. In this procedure, an incision is made in the urethra, the narrow part is removed, and the urethra is reconstructed. Follow these instructions at home: ? Take ilwa-vrk-tnqazlk and prescription medicines only as told by your health care provider. ? If you were prescribed an antibiotic medicine, take it as told by your health care provider. Do not stop taking the antibiotic even if you start to feel better. ? Drink enough fluid to keep your urine pale yellow. ? Keep all follow-up visits as told by your health care provider. This is important. Contact a health care provider if: ? You have signs of a urinary tract infection, such as: ? Frequent urination or passing small amounts of urine frequently. ? Needing to urinate urgently. ? Pain or burning with urination. ? Urine that smells bad or unusual. ? Cloudy urine. ? Pain in the lower abdomen or back. ? Trouble urinating. ? Blood in the urine. ? Vomiting or being less hungry than normal. ? Diarrhea or abdominal pain. ? Vaginal discharge, if you are female. ? Your symptoms are getting worse instead of better. Get help right away if: ? You cannot pass urine. ? You have a fever. ? You have swelling, bruising, or discoloration of your genital area. This includes the penis, scrotum, and inner thighs for men, and the outer genital organs (vulva) and inner thighs for women. ? You develop swelling in your legs. ? You have difficulty breathing. Summary ? Urethral stricture is narrowing of the tube (urethra) that carries urine from the bladder out of the body. The urethra can become narrow due to scar tissue from an injury or infection. ? This condition can make it difficult to pass urine. ? This condition is treated with surgery. The type of surgery that you have depends on the severity of your condition. ? Contact a health care provider if your symptoms get worse or you have signs of a urinary tract infection. This information is not intended to replace advice given to you by your health care provider. Make sure you discuss any questions you have with your health care provider. Document Revised: 04/12/2022 Document Reviewed: 04/12/2022 [employer] Patient Education ? 2022 [employer]. [facility] Urology Office/Clinic Noteon 05-02-2023 Urology Office/Clinic Note Chief Complaint 1 year with KUB HPI Staff PRW pt 1yr KUB done 05/01/23 at [facility]. DX: Kidney Stones, Urge Incontinence & Chronic Cystitis *Effer-K 25mEq BID. Oxybutynin 5mg IR qd was increased to 10mg qd at time of last encounter +C&S at time of last encounter *>100k E Coli Tx'd w/Keflex Pelvic US done 04/12/23. Urine culture done 03/28/23 and was given Keflex and UA done 04/19/23. Pt. taking Ampicillin 500mg Dysuria: no Incomplete bladder emptying: yes, PVR 240mL Hematuria: UA show trace today. Frequency: every 2-3 hours Urgency: yes Nocturia: 2x's Stream: weak stream Post void dripping: no Wearing pads/ Depends: occasionally Urge incontinence: yes Stress incontinence: no Incontinence without Sensory Awareness: yes Abdominal pain: no Flank pain: Pt. states if she is laying for to long she will have bilateral flank pain. History of Present Illness staff HPI reviewed and agree. Review of Systems PHQ Score Initial Depression Screen Score: 0 SCORE no fever, chills, malaise, myalgia. no rash/lesions. no chest pain, palpitations, or SOB. no abdominal pain, nausea, vomiting. no unilateral calf swelling, redness, pain Physical Exam Vitals & Measurements HT: 68 in HT: 172 cm WT: 84 kg WT: 184.8 lb BMI: 28.39 General: nontoxic, NAD Mouth: moist mucosa Lungs: normal respiratory effort Cardio: regular rate, good distal perfusion Abdomen: nondistended, no suprapubic distention or tenderness, no CVA tenderness Neurologic: Grossly normal Skin: No rashes or suspicious lesions Assessment/Plan PRW pt 1. Urethral stricture (N35.919: Unspecified urethral stricture, male, unspecified site) S/p cysto/UDE 06/26/19. Has noticed her stream becoming weaker, hesitancy, some straining. PVR 240 mL however pt states she had to strain to give urine sample since she did not have to go when she was asked for UA. stricture could be attributing to recurrent UTIS discussed could be time for repeat UD. pt agrees. -Schedule cysto/UD with PRW. The procedure risks, benefits, details, and treatment alternatives have been discussed with the patient. These include bleeding, infection, recurrent scar in over 50%, need for repeat dilation or other procedures, no symptom relief with dilation, among others. Full informed consent has been obtained. Will order Local anesthesia. Ordered: E&M of Est. Patient Moderate 30-39 Min 53620 2. Chronic cystitis (N30.20: Other chronic cystitis without hematuria) 03/28/23 - >100k E Coli, given Keflex UA 04/19/23 cloudy urine, positive nitrates, blood and leuks. Started on Ampicillin 500mg which she is still taking. No culture was done. UA today trace-intact blood which could be contamination or still clearing up from recent infection. see #1. Ordered: E&M of Est. Patient Moderate 30-39 Min 86543 3. Kidney stones (N20.0: Calculus of kidney) Metabolic w/up 02/08/21 shows significant low volume KUB done on 04/16/22 showed no urinary calculi. KUB 05/01/23 neg for obvious stones. Pt continues taking Effer-K 25mEq BID. no side effects. -Cont taking Effer-K Ordered: 10156 Measure Post Void residual urine and/or bladder capacity by US- non-imaging E&M of Est. Patient Moderate 30-39 Min 98490 Urnls Dip Stick Auto w/o Microscopy POC 07865 4. Urge incontinence (N39.41: Urge incontinence) BBS 16 Intermittent leakage. Occasionally wears a pad or liner. Oxybutynin was increased from 5mg IR to 10mg ER last visit. Feels overall it is helping but wishes worked better. Don't want to increase further right now as her PVR is high today and she's having trouble emptying and we suspect her stricture is back. will reassess after UD. if flow improved/PVR improved we could consider increasing dose or switching to alternative med. -Cont Oxybutynin for now. reassess after UD. Ordered: E&M of Est. Patient Moderate 30-39 Min 94461 Orders: ciprofloxacin, 500 mg = 1 tab(s), Oral, As Directed, Pt to take 1 tab the day before procedure and the 2nd tab the day of procedure once completed., # 2 tab(s), Refills(s) 0, Pharmacy: [facility] #[id number], 172, cm, 05/02/23 15:11:00 EST, Height/Length Dosing, 84, kg, 11... Follow-up With When Contact Information ISAIAS SMITH, Marshall Conti, URL [facility] [place] [id number]- Additional Instructions: Schedule cysto/UD Patient Education Urethral Stricture Documentation recorded by the carley Pollard accurately reflects the services(s) I performed and decisions made by me. Authenticated by Joselyn Nesbitt PA-C on 05/02/2023 18:23:43. ISherrell, personally scribed for Joselyn Nesbitt PA-C on 05/02/2023 15:39:52. . Problem List/Past Medical History Ongoing Chronic cystitis Frequency of urination Hematuria Hyperlipidemia Hypothyroidism Kidney stones Nocturia Poor urinary stream Urethral stricture Urge incontinence Histo (more content not included)... Normal [facility] Comment on above: Result Comment: Elec tronically Signed By: JOSELYN NESBITT PA-C\.br\Date and Time Signed: 05/02/23 18:23 EST\.br\Electronically Co-Signed By: Sherrell Pollard\.br\Date and Time Co-Signed: 05/02/23 15:40 EST\.br\Electronically Co-Signed By: Sherrell Pollard\.br\Date and Time Co-Signed: 05/02/23 15:43 EST Lab - Other Lab [facility] - Other Lab Results [id number] Normal [facility] Patient Handouton 11-16-2022 Patient Handout Mental and Behaviora [facility] Major Depressive Disorder, Adult Major depressive disorder (MDD) is a mental health condition. It may also be called clinical depression or unipolar depression. MDD causes symptoms of sadness, hopelessness, and loss of interest in things. These symptoms last most of the day, almost every day, for 2 weeks. MDD can also cause physical symptoms. It can interfere with relationships and with everyday activities, such as work, school, and activities that are usually pleasant. MDD may be mild, moderate, or severe. It may be single-episode MDD, which happens once, or recurrent MDD, which may occur multiple times. What are the causes? The exact cause of this condition is not known. MDD is most likely caused by a combination of things, which may include: ? Your personality traits. ? Ulmer or conditioned behaviors or thoughts or feelings that reinforce negativity. ? Any alcohol or substance misuse. ? Long-term (chronic) physical or mental health illness. ? Going through a traumatic experience or major life changes. What increases the risk? The following factors may make someone more likely to develop MDD: ? A family history of depression. ? Being a woman. ? Troubled family relationships. ? Abnormally low levels of certain brain chemicals. ? Traumatic or painful events in childhood, especially abuse or loss of a parent. ? A lot of stress from life experiences, such as poor living conditions or discrimination. ? Chronic physical illness or other mental health disorders. What are the signs or symptoms? The main symptoms of MDD usually include: ? Constant depressed or irritable mood. ? A loss of interest in things and activities. Other symptoms include: ? Sleeping or eating too much or too little. ? Unexplained weight gain or weight loss. ? Tiredness or low energy. ? Being agitated, restless, or weak. ? Feeling hopeless, worthless, or guilty. ? Trouble thinking clearly or making decisions. ? Thoughts of suicide or thoughts of harming others. ? Isolating oneself or avoiding other people or activities. ? Trouble completing tasks, work, or any normal obligations. Severe symptoms of this condition may include: ? Psychotic depression.This may include false beliefs, or delusions. It may also include seeing, hearing, tasting, smelling, or feeling things that are not real (hallucinations). ? Chronic depression or persistent depressive disorder. This is low-level depression that lasts for at least 2 years. ? Melancholic depression, or feeling extremely sad and hopeless. ? Catatonic depression, which includes trouble speaking and trouble moving. How is this diagnosed? This condition may be diagnosed based on: ? Your symptoms. ? Your medical and mental health history. You may be asked questions about your lifestyle, including any drug and alcohol use. ? A physical exam. ? Blood tests to rule out other conditions. MDD is confirmed if you have the following symptoms most of the day, nearly every day, in a 2-week period: ? Either a depressed mood or loss of interest. ? At least four other MDD symptoms. How is this treated? This condition is usually treated by mental health professionals, such as psychologists, psychiatrists, and clinical social workers. You may need more than one type of treatment. Treatment may include: ? Psychotherapy, also called talk therapy or counseling. Types of psychotherapy include: ? Cognitive behavioral therapy (CBT). This teaches you to recognize unhealthy feelings, thoughts, and behaviors, and replace them with positive thoughts and actions. ? Interpersonal therapy (IPT). This helps you to improve the way you communicate with others or relate to them. ? Family therapy. This treatment includes members of your family. ? Medicines to treat anxiety and depression. These medicines help to balance the brain chemicals that affect your emotions. ? Lifestyle changes. You may be asked to: ? Limit alcohol use and avoid drug use. ? Get regular exercise. ? Get plenty of sleep. ? Make healthy eating choices. ? Spend more time outdoors. ? Brain stimulation. This may be done if symptoms are very severe and other treatments have not worked. Examples of this treatment are electroconvulsive therapy and transcranial magnetic stimulation. Follow these instructions at home: Activity ? Exercise regularly and spend time outdoors. ? Find activities that you enjoy doing, and make time to do them. ? Find healthy ways to manage stress, such as: ? Meditation or deep breathing. ? Spending time in nature. ? Journaling. ? Return to your normal activities as told by your health care provider. Ask your health care provider what activities are safe for you. Alcohol and drug use ? If you drink alcohol: ? Limit how much you use to: ? 0?1 drink a day for women who are not . ? 0?2 drinks a day for men. ? Be aware of how much alcohol is in your drink. In the (more content not included)... Normal [facility] GLYCOHEMOGLOBIN A1Con 2022 ADA RECOMMENDATION SEE BELOW Normal [facility] Comment on above: Result Comment: ADA RECOMMENDED LIMIT 4.0 - 6.0 ADA THERAPEUTIC TARGET < 7.0 ACTION SUGGESTED > 7.0 Performed By: #### A 1C #### [facility] [address] [address] [address] Rosendo Wilson Glucose [Mass/Vol] 137 mg/dL Normal [facility] Comment on above: Performed By: #### A 1C #### [facility] [address] [address] [address] Rosendo Wilson HbA1c (Bld) [Mass fraction] 6.4 % Critically high 4.5-6.2 [facility] Comment on above: Performed By: #### A 1C #### [facility] [address] [place] [address] Dr. Rosendo Wilson LIPID PROFILEon 11-11-2022 CHOL-HDL RATIO NORM SEE BELOW Normal [facility] Comment on above: Result Comment: 3.3 - 4.4 LOW RISK 4.4 - 7.1 AVERAGE RISK 7.1 - 11.0 MODERATE RISK >11.0 HIGH RISK Performed By: #### T PABLO, LIPID, CMP #### [facility] [address] [address] [address] Rosendo Wilson Cholesterol [Mass/Vol] 200 mg/dL Normal <=200 [facility] Comment on above: Performed By: #### T SANJIV4, LIPID, CMP #### [facility] [address] [address] [address] Rosendo Wilson Cholesterol in HDL [Mass/Vol] 67 mg/dL Critically high 40-60 [facility] Comment on above: Performed By: #### T SANJIV4, LIPID, CMP #### [facility] [address] [place] [address] Dr. Rosendo Wilson Cholesterol in LDL [Mass/Vol] 122.0 mg/dL Normal [facility] Comment on above: Performed By: #### T SANJIV4, LIPID, CMP #### [facility] [address] [address] [address] Rosendo Wilson Cholesterol.total/Cho lesterol in HDL [Mass ratio] 3.0 {ratio} Normal [facility] Comment on above: Performed By: #### T SANJIV4, LIPID, CMP #### [facility] [address] [address] [address] Rosendo Wilson HDL NORMAL > or = 60 mg/dl - LO W CARDIOVASCULAR RISK <40 mg/dl - HIGH CARDIOVASCULAR RISK Normal [facility] Comment on above: Performed By: #### T SANJIV4, LIPID, CMP #### [facility] [address] [address] [address] Rosendo Wilson LDL CALC NORMAL SEE BELOW Normal [facility] Comment on above: Result Comment: <100 mg/dl OPTIMAL 100 - 129 mg/dl NEAR OR ABOVE OPTIMAL 130 - 159 mg/dl BORDERLINE HIGH 160 - 189 mg/dl HIGH >190 mg/dl VERY HIGH Performed By: #### T SANJIV4, LIPID, CMP #### [facility] [address] [address] [address] Rosendo Wilson Triglyceride [Mass/Vol] 55 mg/dL Normal <=150 [facility] Comment on above: Performed By: #### T SANJIV4, LIPID, CMP #### [facility] [address] [address] [address] Rosendo Wilson VLDL CALC 11.0 mg/dL Normal [facility] Comment on above: Performed By: #### T SANJIV4, LIPID, CMP #### [facility] [address] [address] [address] Rosendo Wilson PROF 14(COMP METB)on 023 Albumin [Mass/Vol] 3.3 g/dL Critically low 3.4-5.0 Th [facility] Comment on above: Performed By: #### T SANJIV4, LIPID, CMP #### [facility] [address] [address] [address] Rosendo Wilson Albumin/Globulin [Mass ratio] 0.8 {ratio} Normal [facility] Comment on above: Performed By: #### T SANJIV4, LIPID, CMP #### [facility] [address] [address] [address] Rosendo Wilson ALP [Catalytic activity/Vol] 91 U/L Normal 46-116 [facility] Comment on above: Performed By: #### T SHRFT4, LIPID, CMP #### [facility] [address] [address] [address] Rosendo Wilson ALT [Catalytic activity/Vol] 31 U/L Normal 14-59 [facility] Comment on above: Performed By: #### T SHRFT4, LIPID, CMP #### [facility] [address] [address] [address] Rosendo Wilson Anion gap [Moles/Vol] 11.3 mmol/L Normal [facility] Comment on above: Performed By: #### T SHRFT4, LIPID, CMP #### [facility] [address] [place] [address] Dr. Rosendo Wilson AST [Catalytic activity/Vol] 21 U/L Normal 15-37 [facility] Comment on above: Performed By: #### T SHRFT4, LIPID, CMP #### [facility] [address] [address] [address] Rosendo Wilson Bilirubin [Mass/Vol] 0.4 mg/dL Normal 0.2-1.0 [facility] Comment on above: Performed By: #### T SHRFT4, LIPID, CMP #### [facility] [address] [address] [address] Rosendo Wilson Calcium [Mass/Vol] 8.8 mg/dL Normal 8.5-10.1 [facility] Comment on above: Performed By: #### T SHRFT4, LIPID, CMP #### [facility] [address] [address] [address] Rosendo Wilson Chloride [Moles/Vol] 102 mmol/L Normal 98-107 [facility] Comment on above: Performed By: #### T SHRFT4, LIPID, CMP #### [facility] [address] [address] [address] Rosendo Wilson CO2 [Moles/Vol] 28.7 mmol/L Normal 21.0-32.0 [facility] Comment on above: Performed By: #### T RISSAFT4, LIPID, CMP #### [facility] [address] [place] [address] Dr. Rosendo Wilson Creatinine [Mass/Vol] 0.83 mg/dL Normal 0.55-1.02 [facility] Comment on above: Performed By: #### T SHRFT4, LIPID, CMP #### [facility] [address] [address] [address] Rosendo Wilson EGFR-AF PALESTINIAN >60 Normal >=60 [facility] Comment on above: Performed By: #### T SHRFT4, LIPID, CMP #### [facility] [address] [place] [address] Dr. Rosendo Wilson EGFR-NON AF PALESTINIAN >60 Normal >=60 [facility] Comment on above: Performed By: #### T RISSAFT4, LIPID, CMP #### [facility] [address] [place] [address] Dr. Rosendo Wilson Globulin (S) [Mass/Vol] 4.3 g/dL Normal [facility] Comment on above: Performed By: #### T SANJIV4, LIPID, CMP #### [facility] [address] [place] [address] Dr. Rosendo Wilson Glucose [Mass/Vol] 114 mg/dL Critically high 74-106 [facility] Comment on above: Performed By: #### T SHRFT4, LIPID, CMP #### [facility] [address] [address] [address] Rosendo Wilson Potassium [Moles/Vol] 4.0 mmol/L Normal 3.5-5.1 [facility] Comment on above: Performed By: #### T SHRFT4, LIPID, CMP #### [facility] [address] [place] [address] Dr. Rosendo Wilson Protein [Mass/Vol] 7.6 g/dL Normal 6.4-8.2 [facility] Comment on above: Performed By: #### T SHRFT4, LIPID, CMP #### [facility] [address] [place] [address] Dr. Rosendo Wilson Sodium [Moles/Vol] 138 mmol/L Normal 136-145 [facility] Comment on above: Performed By: #### T SANJIV4, LIPID, CMP #### [facility] [address] [place] [address] Dr. Rosendo Wilson Urea nitrogen [Mass/Vol] 22.0 mg/dL Critically high 7.0-18.0 [facility] Comment on above: Performed By: #### T PABLO, LIPID, CMP #### [facility] [address] [place] [address] Dr. Rosendo Wilson Urea nitrogen/Creatinine [Mass ratio] 26.5 mg/mg Normal [facility] Comment on above: Performed By: #### T PABLO, LIPID, CMP #### [facility] [address] [place] [address] Dr. Rosendo Wilson TSH W/ REFLEX TO FT4on 11-11 TSH 3.281 uIU/mL Normal 0.358-3.740 [facility] Comment on above: Performed By: #### T PABLO, LIPID, CMP #### [facility] [address] [place] [address] Dr. Rosendo Wilson VITAMIN B12on 11-11-2022 Cobalamin (Vitamin B12) [Mass/Vol] 601.0 pg/mL Normal 193.0-986.0 [facility] Comment on above: Performed By: #### V ITAD, VITB12 #### [facility] [address] [place] [address] Dr. Rosendo Wilson VITAMIN D 25 OHon 11-11-2022 VIT D 25-OH 44.3 ng/mL Normal [facility] Comment on above: Performed By: #### V ITAD, VITB12 #### [facility] [address] [place] [address] Dr. Rosendo Wilson VIT D RANGES SEE BELOW Normal [facility] Comment on above: Result Comment: <20 ng/mL Vit D deficient 20 - <30 ng/mL Vit D insufficient 30 - 100 ng/mL Vit D sufficient >100 ng/mL Potential Toxicity Performed By: #### V ITAD, VITB12 #### [facility] [address] [address] [address] Rosendo Wilson HCG ( test) IAblake d Ql (U)Ordered By: WERNER MALIK on 07-29-2022 HCG ( test) Ql (U) Negative [facility] HCG,Urineon 07-29-2022 Beta HCG ( test) Ql (U) Negative Normal [facility] Comment on above: Result Comment: PERF ORMED BY: [place] [address] PATHOLOGIST BEHAVIORAL ASSISTANT GRACY BARRY M.D. Performed By: #### U HCG #### [place] [address] [place] TESTOSTERONE, FREE,DIRECT, T OTALon 04-20-2022 Free Testosterone(Direct) 1.1 pg/mL Normal 0.0-4.2 [facility] Comment on above: Result Comment: Perf ormed at: BN Performed By: #### T ESTFRD #### [facility] [address] [address] [address] Rosendo Wilson Testosterone [Mass/Vol] 23 ng/dL Normal 4-50 [facility] Comment on above: Result Comment: Perf ormed at: CB Performed By: #### T ESTFRD #### [facility] [address] [address] [address] Rosendo Wilson INSULINon 04-18-2022 Insulin 16.4 uIU/mL Normal 2.6-24.9 [facility] Comment on above: Performed By: #### I NSULIN #### [facility] [address] [address] [address] Rosendo Wilson XR KUB 1 VIEWon 04-18-2022 XR KUB 1 VIEW EXAMINATION: XR KUB 1 VIEW HISTORY: Kidney stone COMPARISON: 02/08/2021 FINDINGS: KIDNEY/URETER - RIGHT: No visible renal or ureteral calcifications. KIDNEY/URETER - LEFT: No visible renal or ureteral calcifications. PELVIS: No visible ureteral calcifications. Any visible calcifications favor phleboliths. BOWEL: No abnormal dilation or deviation. BONES: No acute abnormality. Degenerative changes of the spine and hips OTHER: Negative. No abnormal gaseous collections. IMPRESSION: No definite urinary tract calculi Electronically authenticated by: WERNER BREAUX Date: 2022-04-18 07:14 Normal [facility] Vital Signs Date Time Vital Sign Value Performing Clinician Facility 08-08-2023 15:10-0500 Body height 172.72 cm DO Musa Evangelista Work Phone: [facility] 08-08-2023 15:10-0500 Body mass index (BMI) [Ratio] 28.1 kg/m2 DO Musa Evangelista Work Phone: [facility] 08-08-2023 15:10-0500 Body weight 83.91 kg DO Musa Evangelista Work Phone: [facility] 08-08-2023 15:10-0500 Diastolic blood pressure 69 mm[Hg] DO Musa Evangelista Work Phone: [facility] 08-08-2023 15:10-0500 Heart rate 96 /min DO Musa Evangelista Work Phone: [facility] 08-08-2023 15:10-0500 Respiratory rate 18 /min DO Musa Evangelista Work Phone: [facility] 08-08-2023 15:10-0500 SaO2% (BldA) [Mass fraction] 95 % DO Musa Evangelista Work Phone: [facility] 08-08-2023 15:10-0500 Systolic blood pressure 103 mm[Hg] DO Musa Evangelista Work Phone: [facility] 07-07-2023 15:51-0500 Body temperature 98 [degF] DO Musa Evangelista Work Phone: [facility] 07-07-2023 15:51-0500 Diastolic blood pressure 58 mm[Hg] DO Musa Evangelista Work Phone: [facility] 07-07-2023 15:51-0500 Heart rate 86 /min DO Musa Evangelista Work Phone: [facility] 07-07-2023 15:51-0500 Respiratory rate 20 /min DO Musa Evangelista Work Phone: [facility] 07-07-2023 15:51-0500 SaO2% (BldA) [Mass fraction] 93 % DO Musa Evangelista Work Phone: [facility] 07-07-2023 15:51-0500 Systolic blood pressure 99 mm[Hg] DO Musa Evangelista Work Phone: [facility] 07-07-2023 12:05-0500 Inhaled oxygen flow rate 2 L/min DO Musa Evangelista Work Phone: [facility] 07-07-2023 07:26-0500 Body height 172.72 cm DO Musa Evangelista Work Phone: [facility] 07-07-2023 07:26-0500 Body mass index (BMI) [Ratio] 28.8 kg/m2 DO Musa Evangelista Work Phone: [facility] 07-07-2023 07:26-0500 Body weight 85.8 kg DO Musa Evangelista Work Phone: [facility] 06-13-2023 09:45-0500 Body height 172.72 cm Viktoriabradley Paigely Other [facility] 06-13-2023 09:45-0500 Body mass index (BMI) [Ratio] 28.4 kg/m2 Viktoria Scally Other [employer] [facility] [employer] Other 06-13-2023 09:45-0500 Body weight 84.73 kg Viktoria Scally Other [facility] 06-13-2023 09:45-0500 Diastolic blood pressure 70 mm[Hg] Viktoria Scally Other [facility] 06-13-2023 09:45-0500 Respiratory rate 18 /min Viktoria Scally Other [employer] Other 06-13-2023 09:45-0500 SaO2% (BldA) [Mass fraction] 95 % Viktoria Scally Other [employer] Other 06-13-2023 09:45-0500 Systolic blood pressure 101 mm[Hg] Viktoria Scally Other [facility] 04-17-2023 15:30-0400 Body height 172.72 cm Viktoria Scally Other [employer] Other 04-17-2023 15:30-0400 Body mass index (BMI) [Ratio] 29.4 kg/m2 Viktoria Scally Other [employer] Other 04-17-2023 15:30-0400 Body weight 87.73 kg Viktoria Scally Other [employer] Other 04-17-2023 15:30-0400 Diastolic blood pressure 78 mm[Hg] Viktoria Scally Other [employer] Other 04-17-2023 15:30-0400 Respiratory rate 18 /min Viktoria Scally Other [employer] Other 04-17-2023 15:30-0400 SaO2% (BldA) [Mass fraction] 95 % Viktoria Scally Other [employer] Other 04-17-2023 15:30-0400 Systolic blood pressure 112 mm[Hg] Viktoria Scally Other [employer] Other 02-15-2023 15:00-0400 Body height 172.72 cm Viktoria Scally Other [employer] Other 02-15-2023 15:00-0400 Body mass index (BMI) [Ratio] 30.71 kg/m2 Viktoria Scally Other [employer] Other 02-15-2023 15:00-0400 Body weight 91.63 kg Viktoria Scally Other [employer] Other 02-15-2023 15:00-0400 Diastolic blood pressure 76 mm[Hg] Viktoria Scally Other [employer] Other 02-15-2023 15:00-0400 Respiratory rate 18 /min Viktoria Scally Other [employer] Other 02-15-2023 15:00-0400 SaO2% (BldA) [Mass fraction] 94 % Viktoria Scally Other [employer] Other 02-15-2023 15:00-0400 Systolic blood pressure 106 mm[Hg] Viktoria Scally Other [employer] Other 02-13-2023 15:15-0400 Body height 172.72 cm Sandra Fitt Other [employer] Other 02-13-2023 15:15-0400 Body mass index (BMI) [Ratio] 30.76 kg/m2 Sandra Fitt Other [employer] Other 02-13-2023 15:15-0400 Body weight 91.76 kg Sandra Fitt Other [employer] Other 12-27-2022 15:00-0400 Body height 172.72 cm Viktoria Scally Other [employer] Other 12-27-2022 15:00-0400 Body mass index (BMI) [Ratio] 30.91 kg/m2 Viktoria Scally Other [employer] Other 12-27-2022 15:00-0400 Body weight 92.22 kg Viktoria Scally Other [employer] Other 12-27-2022 15:00-0400 Diastolic blood pressure 80 mm[Hg] Viktoria Scally Other [employer] Other 12-27-2022 15:00-0400 Respiratory rate 18 /min Viktoria Scally Other [employer] Other 12-27-2022 15:00-0400 SaO2% (BldA) [Mass fraction] 95 % Viktoria Scally Other [employer] Other 12-27-2022 15:00-0400 Systolic blood pressure 118 mm[Hg] Viktoria Scally Other [employer] Other 07-29-2022 11:13-0500 Diastolic blood pressure 68 mm[Hg] DO Musa Evangelista Work Phone: [facility] 07-29-2022 11:13-0500 Heart rate 76 /min DO Musa Evangelista Work Phone: [facility] 07-29-2022 11:13-0500 Respiratory rate 16 /min DO Musa Evangelista Work Phone: [facility] 07-29-2022 11:13-0500 SaO2% (BldA) [Mass fraction] 93 % DO Musa Evangelista Work Phone: [facility] 07-29-2022 11:13-0500 Systolic blood pressure 106 mm[Hg] DO Musa Evangelista Work Phone: [facility] 07-29-2022 10:17-0500 Body height 172.72 cm DO Musa Evangelista Work Phone: [facility] 07-29-2022 10:17-0500 Body mass index (BMI) [Ratio] 27.4 kg/m2 DO Musa Evangelista Work Phone: [facility] 07-29-2022 10:17-0500 Body weight 82 kg DO Musa Evangelista Work Phone: [facility] 07-29-2022 08:56-0500 Body temperature 98.3 [degF] DO Musa Evangelista Work Phone: [facility] 04-27-2022 15:11-0500 Blood Pressure Location JOSELYN NESBITT [facility] 04-27-2022 15:11-0500 Diastolic blood pressure 90 mm[Hg] JOSELYN LAZ [facility] 04-27-2022 15:11-0500 Heart rate 72 /min JOSELYN LAZ [facility] 04-27-2022 15:11-0500 Systolic blood pressure 135 mm[Hg] JOSELYN LAZ [facility] Encounters Encounter Date Encounter Type Care Provider Facility Start: 08-22-2023 End: 08-23-2023 ambulatory Marshall RIZVI Facility:[facility] Start: 08-21-2023 End: 08-22-2023 ambulatory Marshall RIZVI Facility:[facility] Start: 08-21-2023 End: 08-21-2023 Patient encounter procedure Marshall Conti ISAIAS [facility] Start: 08-15-2023 ambulatory BERNADETTE Espino acility:[facility] Start: 08-08-2023 End: 08-08-2023 ambulatory DO Musa Evangelista Work Phone: [facility] Work Phone: Start: 08-08-2023 End: 08-08-2023 Patient encounter procedure DO Musa Evangelista Work Phone: [facility] Work Phone: Start: 08-04-2023 End: 08-04-2023 ambulatory EMY A VISCI Not Available Start: 07-21-2023 End: 07-21-2023 ambulatory Sandra Albarran Other [facility] Other Start: 07-21-2023 Telephone encounter Sandra Albarran [facility] Start: 07-17-2023 End: 07-17-2023 ambulatory Sandra Parsonst Other [facility] Other Start: 07-17-2023 Telephone encounter Sandra Albarran [facility] Start: 07-07-2023 End: 07-07-2023 ambulatory Musa Evangelista Facility:[facility] Start: 07-07-2023 End: 07-07-2023 Admission to same day surgery center DO Musajon Evangelista Work Phone: [facility] [place] Start: 07-07-2023 End: 07-07-2023 ambulatory DO Musa Jean Carlos Work Phone: [facility] Work Phone: Start: 06-22-2023 End: 06-22-2023 ambulatory Emy Visci Facility:[facility] Start: 06-22-2023 End: 06-22-2023 ambulatory DO Musa Evangelista Work Phone: [facility] Work Phone: Start: 06-22-2023 End: 06-22-2023 Patient encounter procedure DO Musa Evangelista Work Phone: [facility] Work Phone: Start: 06-20-2023 End: 06-21-2023 ambulatory Marshall RIZVI Facility:[facility] Start: 06-20-2023 End: 06-20-2023 Patient encounter procedure Marshall RIZVI [facility] [place] Start: 06-13-2023 (FCCCWMNF/U) Weight Management f/u Viktoria [place] [facility] Start: 06-13-2023 End: 06-13-2023 ambulatory Viktoria [place] [facility] [employer] Other Start: 06-13-2023 Registered Recurring DO Musa Evangelista Work Phone: [facility] Work Phone: Start: 06-13-2023 End: 06-13-2023 Patient encounter procedure DO Musa Evangelista Work Phone: [facility] Work Phone: Start: 05-17-2023 End: 05-17-2023 ambulatory EMY DELGADILLO Not Available Start: 05-02-2023 End: 05-03-2023 ambulatory PA-C JOSELYN NESBITT Facility:[facility] [place] Start: 04-17-2023 (FCCCWMNF/U) Weight Management f/u Viktoria [facility] Start: 04-17-2023 End: 04-17-2023 ambulatory Viktoria [place] Other [facility] Other Start: 04-17-2023 End: 04-17-2023 Patient encounter procedure DO Musa Evangelista Work Phone: [facility] Work Phone: Start: 02-15-2023 ([facility]) Weight Management f/u Viktoria Scally [facility] Start: 02-15-2023 End: 02-15-2023 ambulatory Viktoria Scally Other [employer] [facility] [employer] Other Start: 02-13-2023 ([facility] WMNI) WMN Initial Provider Sandra Albarran [facility] Start: 02-13-2023 End: 02-13-2023 ambulatory Sandra Albarran Other [facility] Other Start: 01-25-2023 End: 01-25-2023 ambulatory Viktoria Scally Other [facility] Other Start: 01-25-2023 Telephone encounter Viktoria [place] Start: 12-27-2022 ([facility]) Weight Management f/u Viktoria Grecialy [facility] Start: 12-27-2022 End: 12-27-2022 ambulatory Viktoria Scally Other [facility] Other Start: 12-15-2022 End: 12-15-2022 ambulatory Viktoria Scally Other [facility] Other Start: 12-15-2022 Telephone encounter Viktoria Scally [facility] Start: 11-16-2022 End: 11-17-2022 ambulatory Celiamarcel Eason Facility: [facility] Start: 11-11-2022 End: 11-12-2022 ambulatory VIKTORIA SCALLY Facility: Start: 07-29-2022 End: 07-29-2022 ambulatory Tsering Velez Facility:[facility] Start: 07-29-2022 End: 07-29-2022 Admission to same day surgery center DO Musa Evangelista Work Phone: [facility] [place] Start: 07-29-2022 End: 07-29-2022 ambulatory DO Musa Evangelista Work Phone: [facility] Work Phone: Start: 04-27-2022 End: 04-27-2022 Lab Drop off JOSELYN NESBITT [facility] Start: 04-27-2022 End: 04-27-2022 Patient encounter procedure JOSELYN NESBITT [facility] Start: 04-16-2022 End: 04-17-[address] MUSA EVANGELISTA Facility:[facility] Start: 12-30-[address] MUSA EVANGELISTA Facil ity:[facility]1 Procedures Date Procedure Procedure Detail Performing Clinician Start: 07-07-2023 Total hysterectomy v ia vaginal approach DO Musa Evangelista Work Phone: Start: 06-22-2023 Antibody screen Viktoria [place] Comment on above: Order Comment: Date of Surgery: [id number] Result Comment: PERF ORMED BY: [facility] [address] [place] [address] PATHOLOGIST BEHAVIORAL ASSISTANT GRACY BARRY M.D. 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 INSERTION JOSELYN NESBITT bladder suspension 1 JOVITA NESBITT Comment on above: May 20 2011 ESWL KIDNEY STONE X2 JOVITA NESBITT LEFT KNEE RECONSTRUC TIVE SURGERY JOSELYN NESBITT PARATHYROID GLAND EXCISION J JANNETTE NESBITT Part of lobe of thyr oid gland (body structure) JOSELYN NESBITT Plan of Treatment Date Care Activity Detail Author Start: 10-23-2023 ambulatory Ambulatory Facility:[facility] Start: 07-07-2023 Hospital admission [facility] Start: 07-07-2023 [facility] Start: 07-29-2022 End: 07-29-2022 [facility] Patient referral [facility] Work Phone: Immunizations Immunization Date Immunization Notes Care Provider Fa cili 10-19-2020 COVID-19 mRNA, Comirnaty (Pfizer) DO Musa Evangelista Work Phone: [facility] 10-08-2020 SARS-CoV-2 (COVID-19 ) mRNA BNT-162b2 vax JOSELYN NESBITT [facility] 09-21-2020 COVID-19 mRNA, Comirnaty (Pfizer) DO Musa Evangelista Work Phone: [facility] 09-17-2020 SARS-CoV-2 (COVID-19 ) mRNA BNT-162b2 vax JOSELYN NESBITT [facility] 03-04-2020 influenza virus vaccine, unspecified formulation JOSELYN NESBITT [facility] 02-19-2020 influenza virus vaccine, unspecified formulation JOSELYN NESBITT [facility] 03-19-2019 influenza virus vaccine, live, attenuated, for intranasal use JOSELYN NESBITT [facility] [place] 03-19-2019 influenza virus vaccine, unspecified formulation JOSELYN NESBITT [facility] [place] Comment on above: Result Comment: 2021: PATIENT RECIEVED AT WORK Payers Date Payer Category Payer Unknown [id number] 2.16.84 [id number] 1974 Unknown [id number] 2.16.84 [id number] 1974 Unknown [id number] 2.16.84 [id number] 1974 Unknown [id number] 2.16.84 [id number] 1974 Unknown [id number] 2.16.84 [id number] 1974 Unknown [id number] 2.16.840 .[id number] 1974 Unknown [id number] 2.16.8 [id number] 1974 Unknown [id number] 2.16.8 [id number] 1974 Unknown [id number] 2.16.8 [id number] 1974 Unknown [id number] 2.16.8 [id number] 1974 Unknown [id number] 2.16.8 [id number] 1974 Unknown [id number] 2.16.8 [id number] 1974 Unknown [id number] 2.16.8 [id number] 1959 Self-pay [id number] 1960 Unknown [id number] 1960 Unknown [id number] Unknown [id number] 2.16.8 [id number] Unknown [id number] 2.16.8 [id number] Unknown [id number] 2.16.8 [id number] Unknown [id number] 2.16.8 [id number] Social History Date Type Detail Facility Tobacco smoking stat us [facility] Unknown if ever smoked [facility] Start: 1975 Sex Assigned At Female [facility] Start: 04-24-2020 End: 06-20-2023 Tobacco smoking status Never smoked tobacco (finding) [facility] Tobacco smoking status Never [facility] Sex Assigned At Female [facility] Start: 06-22-2023 End: 07-07-2023 Tobacco smoking status NHIS Ex-smoker (finding) [facility] Medical Equipment Procedure Code Equipment Code Equipment Origin al Text Equipment Identifier Dates Pen [place] [id number] X 4 MM Start: 02-15-2023 Goals Date Patient Goal Desired Activity /State Functional Status Date Assessment Result Facility 07-07-2023 Functional status Patient at Baseline [facility] Work Phone: 06-20-2023 Functional Status N/A [facility] [place] 04-27-2022 Functional Status N/A [facility] [place] Mental Status Date Assessment Result Facility 07-07-2023 Cognitive function Cognitive Sta tus Patient at Baseline [facility] Work Phone: Clinical Notes 04-27-2022 to 09-04-2023 Note Date & Type Note Facility 09-04-2023 [facility] - [facility] To: Celia Eason CNP; Sent: 09/04/2023 07:50:01 EDT Subject: FW: Medication Management Due Date/Time: 09/04/2023 09:00:00 EDT Caller Name: NICOLETTE EVANGELISTA; Caller Number: Christine , Sangeeta Patient matched by Yun Agee on 09/04/2023 07:49:49 EDT From: [facility] (MAIL SERVICE) [facility] To: Celia Eason CNP Sent: September 03, 2023 8:00:43 AM CDT Subject: Medication Management Due: September 04, 2023 12:31:07 AM CDT On Hold Pending Signature Dispensed Drug: atorvastatin (atorvastatin 10 mg oral tablet), TAKE 1 TABLET BY MOUTH DAILY Quantity: 90 tab(s) Days Supply: 90 Refills: 0 Substitutions Allowed Notes from Pharmacy: From: Celia Eason APRN, CNP To: [facility] (MAIL SERVICE) [facility] Sent: 09/04/2023 09:55:24 EDT Subject: FW: Medication Management Submitted: Complete:atorvastatin (atorvastatin 10 mg oral tablet) Signed by Celia Eason APRN, CNP 09/04/2023 09:55:00 EDT Approved with modifications: atorvastatin (ATORVASTATIN 10MG TABLETS) TAKE 1 TABLET BY MOUTH DAILY Qty: 90 tab(s) Days Supply: 90 Refills: 1 Substitutions Allowed Route To Pharmacy - [facility] (MAIL SERVICE) [facility] 06-26-2023 Note - [facility]: [facility] To: Celia Eason CNP; Sent: 06/26/2023 08:36:12 EST Subject: FW: Medication Management Due Date/Time: 06/26/2023 09:00:00 EST Caller Name: JEANC ARLOS NICOLETTE KOLB; Caller Number: Christine , From: [facility] (MAIL SERVICE) [facility] To: Celia Eason CNP Sent: June 25, 2023 8:00:40 AM COMPENSATION MANAGER Subject: Medication Management Due: June 26, 2023 12:24:29 AM COMPENSATION MANAGER On Hold Pending Signature Dispensed Drug: sertraline (sertraline 100 mg oral tablet), TAKE 1 TABLET BY MOUTH DAILY Quantity: 90 tab(s) Days Supply: 90 Refills: 0 Substitutions Allowed Notes from Pharmacy: From: Musa Evangelista DO To: [facility] (MAIL SERVICE) [facility] Sent: 06/26/2023 10:41:08 EST Subject: FW: Medication Management Submitted: Complete:sertraline (sertraline 100 mg oral tablet) Signed by Musa Evangelista DO 06/26/2023 10:41:00 EST Approved sertraline (SERTRALINE 100MG TABLETS) TAKE 1 TABLET BY MOUTH DAILY Qty: 90 tab(s) Days Supply: 90 Refills: 0 Substitutions Allowed Route To Pharmacy - [facility]RX (MAIL SERVICE) [facility] Signed by Musa Evangelista DO [facility] 06-13-2023 Note - From: Yun Agee ([facility] ([facility])) To: Celia Eason CNP; Sent: 06/13/2023 16:03:56 EST Subject: FW: Medication Management Due Date/Time: 06/14/2023 09:01:00 EST Caller Name: NICOLETTE EVANGELISTA; Caller Number: Christine , Sangeeta Patient matched by Yun Agee on 06/13/2023 16:03:46 EST From: [facility] (MAIL SERVICE) [facility] To: Celia Eason CNP Sent: June 13, 2023 8:01:07 AM COMPENSATION MANAGER Subject: Medication Management Due: June 14, 2023 12:07:09 AM COMPENSATION MANAGER On Hold Pending Signature Dispensed Drug: atorvastatin (atorvastatin 10 mg oral tablet), TAKE 1 TABLET BY MOUTH DAILY Quantity: 90 tab(s) Days Supply: 90 Refills: 0 Substitutions Allowed Notes from Pharmacy: From: Musa Evangelista DO To: [facility] (MAIL SERVICE) [facility] Sent: 06/13/2023 16:53:16 EST Subject: FW: Medication Management Submitted: Complete:atorvastatin (atorvastatin 10 mg oral tablet) Signed by Musa Evangelista DO 06/13/2023 16:53:00 EST Approved with modifications: atorvastatin (ATORVASTATIN 10MG TABLETS) TAKE 1 TABLET BY MOUTH DAILY Qty: 90 tab(s) Days Supply: 90 Refills: 0 Substitutions Allowed Route To Pharmacy - [facility] (MAIL SERVICE) [facility] Signed by Musa Evangelista DO [facility] 06-13-2023 Hospital Discharg e instructions Follow Up Care 06/13/2023 14:00:48 With:LAZ FLEMING, JOSELYN Clark, URL Address: [address] [place] [address] When:Within 4 Month(s) [facility] [place] 06-13-2023 Evaluation note Encounter Date Diagnosis Assessment Notes May, Obesity (ICD-10 - E66.9) Plan, purchase and prepare healthy foods. Use shopping list, electronic shopping to curb impulse buying. Stock pantry with healthy foods. Keep fruits and vegetables accessible. Avoid bringing unhealthy foods in to the home. Plan family meals minimally 3 x per week. Decrease screen time. May, Hyperlipidemia (ICD-10 - E78.5) Discussed risks of elevated LDL. Encouraged intake of foods low in saturated fat as well as supplements (tatyana, fish oil). Discussed LDL contributing to insulin resistance and increase cardiovascular risk factors. May, Hypothyroidism (ICD-10 - E03.9) Interval surveillance and optimization May, History of breast cancer (ICD-10 - Z85.3) May, Thyroid nodule (ICD-10 - E04.1) Pathology from [facility], 02/10/2020; left thyroid lobe lobectomy incidental focus of invasive papillary thyroid carcinoma confined to thyroid parenchyma negative for perineural and lymphovascular invasion, follicular adenoma, nodular hyperplasia and mild chronic thyroiditis, 1 minute lymph node negative for metastatic carcinoma. Right inferior thyroid lobe partial resection benign thyroid parenchyma with nodular hyperplasia. Report scanned Pathology reviewed, discussion of risk to benefit with history of papillary thyroid cancer, she agrees and is comfortable proceeding with GLP-1 RA May, Prediabetes (ICD-10 - R73.09) May, Family history of diabetes mellitus (ICD-10 - Z83.3) Discussed how diabetes II delayed or avoided with lifestyle changes such as, losing weight, being active, improving dietary intake. Discussed the risks for diabetes. Explained that weight loss of 5-10% can have significant impact. Consistent with weight management recommendations, encouraged diet rich in fruits, vegetables, low fat dairy, low in red meat sweets and refined grains. Stay away from soda and fruit juice. Increase activity 30 minutes most days of the week. May, Vitamin D deficiency (ICD-10 - E55.9) Vitamin D deficiency suspected. Vitamin D has been noted to have positive impact on mood and energy. We can recheck periodically and make recommendations for long-term supplementation with ncxe-[id number]-[id number] formulations or prescription grade repletion. May, BMI 28.0-28.9,adult (ICD-10 - Z68.28) May, Other I have spent 30 minutes with this patient and over 50% of the visit was counseling done by myself, Jessica MARI. [facility] Other 10-30-2023 Evaluation note* Encounter Date Diagnosis Assessment Notes Treatment Notes Treatment Clinical Notes Mar, Obesity (ICD-10 - E66.9) Plan, purchase and prepare healthy foods. Use shopping list, electronic shopping to curb impulse buying. Stock pantry with healthy foods. Keep fruits and vegetables accessible. Avoid bringing unhealthy foods in to the home. Plan family meals minimally 3 x per week. Decrease screen time. Mar, Hyperlipidemia (ICD-10 - E78.5) Discussed risks of elevated LDL. Encouraged intake of foods low in saturated fat as well as supplements (tatyana, fish oil). Discussed LDL contributing to insulin resistance and increase cardiovascular risk factors. Mar, Hypothyroidism (ICD-10 - E03.9) Interval surveillance and optimization Mar, History of breast cancer (ICD-10 - Z85.3) Mar, Thyroid nodule (ICD-10 - E04.1) Pathology from [facility], 02/10/2020; left thyroid lobe lobectomy incidental focus of invasive papillary thyroid carcinoma confined to thyroid parenchyma negative for perineural and lymphovascular invasion, follicular adenoma, nodular hyperplasia and mild chronic thyroiditis, 1 minute lymph node negative for metastatic carcinoma. Right inferior thyroid lobe partial resection benign thyroid parenchyma with nodular hyperplasia. Report scanned Pathology reviewed, discussion of risk to benefit with history of papillary thyroid cancer, she agrees and is comfortable proceeding with GLP-1 RA Mar, Prediabetes (ICD-10 - R73.09) Mar, Family history of diabetes mellitus (ICD-10 - Z83.3) Discussed how diabetes II delayed or avoided with lifestyle changes such as, losing weight, being active, improving dietary intake. Discussed the risks for diabetes. Explained that weight loss of 5-10% can have significant impact. Consistent with weight management recommendations, encouraged diet rich in fruits, vegetables, low fat dairy, low in red meat sweets and refined grains. Stay away from soda and fruit juice. Increase activity 30 minutes most days of the week. Mar, Vitamin D deficiency (ICD-10 - E55.9) Vitamin D deficiency suspected. Vitamin D has been noted to have positive impact on mood and energy. We can recheck periodically and make recommendations for long-term supplementation with qyed-huc-zkmgcvp formulations or prescription grade repletion. Mar, BMI 29.0-29.9,adult (ICD-10 - Z68.29) Mar, Other I have spent 30 minutes with this patient and over 50% of the visit was counseling done by myself, Jessica MAIR. [facility] Other 08-30-2023 Evaluation note* Encounter Date Diagnosis Assessment Notes Treatment Notes Treatment Clinical Notes Jan, Obesity (ICD-10 - E66.9) Plan, purchase and prepare healthy foods. Use shopping list, electronic shopping to curb impulse buying. Stock pantry with healthy foods. Keep fruits and vegetables accessible. Avoid bringing unhealthy foods in to the home. Plan family meals minimally 3 x per week. Decrease screen time. Jan, Obesity (BMI 30-39.9) (ICD-10 - E66.9) Jan, Hyperlipidemia (ICD-10 - E78.5) Discussed risks of elevated LDL. Encouraged intake of foods low in saturated fat as well as supplements (tatyana, fish oil). Discussed LDL contributing to insulin resistance and increase cardiovascular risk factors. Jan, Hypothyroidism (ICD-10 - E03.9) Interval surveillance and optimization Jan, History of breast cancer (ICD-10 - Z85.3) Jan, Thyroid nodule (ICD-10 - E04.1) Pathology from [facility], 02/10/2020; left thyroid lobe lobectomy incidental focus of invasive papillary thyroid carcinoma confined to thyroid parenchyma negative for perineural and lymphovascular invasion, follicular adenoma, nodular hyperplasia and mild chronic thyroiditis, 1 minute lymph node negative for metastatic carcinoma. Right inferior thyroid lobe partial resection benign thyroid parenchyma with nodular hyperplasia. Report scanned Pathology reviewed, discussion of risk to benefit with history of papillary thyroid cancer, she agrees and is comfortable proceeding with GLP-1 RA Jan, Prediabetes (ICD-10 - R73.09) Jan, Family history of diabetes mellitus (ICD-10 - Z83.3) Discussed how diabetes II delayed or avoided with lifestyle changes such as, losing weight, being active, improving dietary intake. Discussed the risks for diabetes. Explained that weight loss of 5-10% can have significant impact. Consistent with weight management recommendations, encouraged diet rich in fruits, vegetables, low fat dairy, low in red meat sweets and refined grains. Stay away from soda and fruit juice. Increase activity 30 minutes most days of the week. Jan, Vitamin D deficiency (ICD-10 - E55.9) Vitamin D deficiency suspected. Vitamin D has been noted to have positive impact on mood and energy. We can recheck periodically and make recommendations for long-term supplementation with udsc-uvn-jroehfm formulations or prescription grade repletion. Jan, Other I have spent 30 minutes with this patient and over 50% of the visit was counseling done by myself, Jessica MARI. [facility] Other 08-28-2023 Evaluation note* Encounter Date Diagnosis Assessment Notes Treatment Notes Treatment Clinical Notes Jan, Obesity, unspecified classification, unspecified obesity type, unspecified whether serious comorbidity present (ICD-10 - E66.9) Jan, BMI 30.0-30.9,adult (ICD-10 - Z68.30) Jan, Other Summary of Visi t: (A) Much emotional support provided today (B) Discussed including protein with all snacks (C) Reviewed the plate method [facility] Other 07-17-2023 Note From: Umm Zuniga LPN ([facility] To: Celia Eason CNP; Sent: 01/02/2023 09:48:00 EDT Subject: FW: Medication Management Due Date/Time: 01/02/2023 09:01:00 EDT Caller Name: NICOLETTE EVANGELISTA; Caller Number: Christine , Sangeeta From: [facility] (MAIL SERVICE) [facility] To: Celia Eason CNP Sent: December 30, 2022 8:01:14 AM CDT Subject: Medication Management Due: December 31, 2022 12:17:11 AM CDT On Hold Pending Signature Dispensed Drug: atorvastatin (atorvastatin 10 mg oral tablet), TAKE 1 TABLET BY MOUTH DAILY Quantity: 90 tab(s) Days Supply: 90 Refills: 0 Substitutions Allowed Notes from Pharmacy: From: Celia Eason APRN, CNP To: [facility] (MAIL SERVICE) [facility] Sent: 01/02/2023 10:01:40 EDT Subject: FW: Medication Management Submitted: Complete:atorvastatin (atorvastatin 10 mg oral tablet) Signed by Celia Eason APRN, CNP 01/02/2023 10:01:00 EDT Approved with modifications: atorvastatin (ATORVASTATIN 10MG TABLETS) TAKE 1 TABLET BY MOUTH DAILY Qty: 90 tab(s) Days Supply: 90 Refills: 1 Substitutions Allowed Route To Pharmacy - [facility] (MAIL SERVICE) [facility]05-30-2023 NoteEntered by Celia Eason APRN, CNP on November 14, 2022 22:17:40 EDT From: Celia Eason APRN, CNP To: [facility] (MAIL SERVICE) [facility] Sent: 11/14/2022 22:17:39 EDT Subject: Medication Management Submitted: Complete:sertraline (sertraline 100 mg oral tablet) Signed by Celia Eason APRN, CNP 11/14/2022 22:17:00 EDT Approved with modifications: sertraline (SERTRALINE 100MG TABLETS) TAKE 1 TABLET BY MOUTH DAILY Qty: 90 tab(s) Days Supply: 90 Refills: 1 Substitutions Allowed Route To Pharmacy - [facility] (MAIL SERVICE) [facility] From: [facility] (MAIL SERVICE) [facility] To: Celia Eason CNP Sent: November 12, 2022 8:00:40 AM CDT Subject: Medication Management Due: November 13, 2022 12:56:51 AM CDT On Hold Pending Signature Dispensed Drug: sertraline (sertraline 100 mg oral tablet), TAKE 1 TABLET BY MOUTH DAILY Quantity: 90 tab(s) Days Supply: 90 Refills: 0 Substitutions Allowed [id number] Note Entered by Umm Zuniga LPN on October 10, 2022 12:02:29 EDT From: Umm Zuniga LPN To: [facility] ([facility]) [facility] Sent: 10/10/2022 12:02:29 EDT Subject: Medication Management Submitted: Complete:atorvastatin (atorvastatin 10 mg oral tablet) Signed by Umm Zuniga LPN 10/10/2022 12:02:00 EDT Approved atorvastatin (ATORVASTATIN 10MG TABLETS) TAKE 1 TABLET BY MOUTH DAILY Qty: 90 tab(s) Days Supply: 90 Refills: 0 Substitutions Allowed Route To Pharmacy - [facility] (MAIL [facility]) [facility] Signed by Umm Zuniga LPN From: [facility] (MAIL SERVICE) [facility] To: Celia Eason TEJAL Sent: October 07, 2022 8:01:38 AM CDT Subject: Medication Management Due: October 08, 2022 7:31:14 AM CDT On Hold Pending Signature Dispensed Drug: atorvastatin (atorvastatin 10 mg oral tablet), TAKE 1 TABLET BY MOUTH DAILY Quantity: 90 tab(s) Days Supply: 90 Refills: 0 Substitutions [id number] Discharge instructions Patient Education 04/27/2022 14:59:23 Kidney Stones, Rvzk-[id number] Kidney Stones Kidney stones are rock-like masses that form inside of the kidneys. Kidneys are organs that make pee (urine). A kidney stone may move into other parts of the urinary tract, including: The tubes that connect the kidneys to the bladder (ureters). The bladder. The tube that carries urine out of the body (urethra). Kidney stones can cause very bad pain and can block the flow of pee. The stone usually leaves your body (passes) through your pee. You may need to have a doctor take out the stone. What are the causes? Kidney stones may be caused by: A condition in which certain glands make too much parathyroid hormone (primary hyperparathyroidism). A buildup of a type of crystals in the bladder made of a chemical called uric acid. The body makes uric acid when you eat certain foods. Narrowing (stricture) of one or both of the ureters. A kidney blockage that you were born with. Past surgery on the kidney or the ureters, such as gastric bypass surgery. What increases the risk? You are more likely to develop this condition if: You have had a kidney stone in the past. You have a family history of kidney stones. You do not drink enough water. You eat a diet that is high in protein, salt (sodium), or sugar. You are overweight or very overweight (obese). What are the signs or symptoms? Symptoms of a kidney stone may include: Pain in the side of the belly, right below the ribs (flank pain). Pain usually spreads (radiates) to the groin. Needing to pee often or right away (urgently). Pain when going pee (urinating). Blood in your pee (hematuria). Feeling like you may vomit (nauseous). Vomiting. Fever and chills. How is this treated? Treatment depends on the size, location, and makeup of the kidney stones. The stones will often pass out of the body through peeing. You may need to: Drink more fluid to help pass the stone. In some cases, you may be given fluids through an IV tube put into one of your veins at the hospital. Take medicine for pain. Make changes in your diet to help keep kidney stones from coming back. Sometimes, medical procedures are needed to remove a kidney stone. This may involve: A procedure to break up kidney stones using a beam of light (laser) or shock waves. Surgery to remove the kidney stones. Follow these instructions at home: Medicines Take uzug-kut-khmjhib and prescription medicines only as told by your doctor. Ask your doctor if the medicine prescribed to you requires you to avoid driving or using heavy machinery. Eating and drinking Drink enough fluid to keep your pee pale yellow. You may be told to drink at least 8 10 glasses of water each day. This will help you pass the stone. If told by your doctor, change your diet. This may include: ?Limiting how much salt you eat. ?Eating more fruits and vegetables. ?Limiting how much meat, poultry, fish, and eggs you eat. Follow instructions from your doctor about eating or drinking restrictions. General instructions Collect pee samples as told by your doctor. You may need to collect a pee sample: ?24 hours after a stone comes out. ?8 12 weeks after a stone comes out, and every 6 12 months after that. Strain your pee every time you pee (urinate), for as long as told. Use the strainer that your doctor recommends. Do not throw out the stone. Keep it so that it can be tested by your doctor. Keep all follow-up visits as told by your doctor. This is important. You may need follow-up tests. How is this prevented? To prevent another kidney stone: Drink enough fluid to keep your pee pale yellow. This is the best way to prevent kidney stones. Eat healthy foods. Avoid certain foods as told by your doctor. You may be told to eat less protein. Stay at a healthy weight. Where to find more information National Kidney Foundation (NKF): www.kidney.org U[employer] Foundation (UCF): www.urologyhealth.org Contact a doctor if: You have pain that gets worse or does not get better with medicine. Get help right away if: You have a fever or chills. You get very bad pain. You get new pain in your belly (abdomen). You pass out (faint). You cannot pee. Summary Kidney stones are rock-like masses that form inside of the kidneys. Kidney stones can cause very bad pain and can block the flow of pee. The stones will often pass out of the body through peeing. Drink enough fluid to keep your pee pale yellow. This information is not intended to replace advice given to you by your health care provider. Make sure you discuss any questions you have with your health care provider. Document Released: 11/21/2008 Document Revised: 10/22/2019 Document Reviewed: 10/22/2019 [employer] Patient Education 2020 [employer]. Follow Up Care 02/19/2021 09:16:30 With:JOSELYN NESBITT PA-C, URL Address: [address] [place] [address] When: Unknown [facility] evaluation + Plan note Future Appointments Appointment Date:05/02/2023 03:00:00 PM Scheduled Provider:JOSELYN NESBITT PA-C Location:[facility] Appointment Type:URO Office Visit [facility] evaluation + Plan note Future Appointments Appointment Date:05/02/2023 03:00:00 PM Scheduled Provider:JOSELYN NESBITT PA-C Location:[facility] Appointment Type:URO Office Visit Diagnostic Tests Pending * [facility]ments Appointment Date:08/21/2023 03:00:00 PM Scheduled Provider: Location:[facility] Appointment Type:URO Nurse Visit Appointment Date:10/23/2023 02:45:00 PM Scheduled Provider:Marshall RIZVI MD [facility] Office Visit [facility] Evaluation + Plan note Future Appointments Appointment Date:10/23/2023 02:45:00 PM Scheduled Provider:Marshall RIZVI MD Location:[facility] hospital Appointment Type:URO Office Visit [facility] evaluation noteNo assessment information available [facility] Work Phone: Evaluation noteNo InformationNort [facility] Other evaluation noteNoRSI ([employer]) [facility] Other Evalulwpfa note* Diagnosis Onset Date Resolution Status BMI 28.0-28.9,adult acute Hyperlipemia acute Hypothyroidism acute Obesity acute Prediabetes acute Vitamin D deficiency acute S/P hysterectomy with oophorectomy noneactive [facility] Work Phone: His[facility] general Narrative - Reported* Type Description Date Medical History hypokalemia Medical History hyperlipidemia Medical History Hypothyroidism Medical History bladder trouble Medical History cancer Medical History insulin resistance Medical History prediabetes Medical History kidney stones Surgical History tonsillectomy Surgical History bilateral mastectomy Surgical History thyroidectomy, subtotal Surgical History knee surgery left Hospitalization History See Above [facility] Other [facility] general Narrative - ReportedNoRSI ([employer]) [facility] Other Hospital course Narrative No data available for this section [facility] Hospital Discharge instructions No data available for this section [facility] Additional Instructions DISCHARGE INSTRUCTIONS FOR DILATION & CURETTAGE (D & C) -Today, outpatient surgery has become a vital link in the health care program. Outpatient D&C is a safe and common practice and this paper is designed to help you know what to expect when you go home and under what circumstances you should give me a call. I will have all of your labs and surgery reports for you when you come in for your follow-up. -To reach me in an emergency, call the office at [[phone]]. TODAY -Take it easy the rest of the day. If you have received a general anesthetic or injections to help you relax for the local procedure you should not drive a car for at least 8 hours after surgery to make sure all of the medication has worn off. ACTIVITIES -There are no restrictions on your normal activities. Generally, you may expect to go back to work the next day unless I have given you other instructions. You should shower daily and practice good personal habits to offset the chance of infection. Avoid intercourse for one week after your surgery and you should not douche. Most women experience minimal disruption of their normal routines. BLEEDING -The amount of bleeding after a D&C varies somewhat. Some women have very little requiring onlya light pad for a few days. Other women may bleed similar to a heavy period for a week or so. [You may wear Tampax if you wish, but be sure to change often.] Do not be alarmed if you expel some clots. -If I have given you a prescription to control bleeding, get it filled on your way home, if possible, and take all the pills according to the directions on the bottle. These pills may increase the amount of your flow and give you cramping similar to first day menstrual cramps. Two Motrin every 6 hours or Anaprox every 12 hours and a heating pad should be sufficient to control any discomfort you may have. If your bleeding becomes bright red and becomes heavy enough that you have used one full pad an hour times 4 hours, I want you to give me a call. Also, if within the first week after surgery you experience chills, fever, and a change in the odor, color, or character of your drainage, you may be developing an infection and you should call me. You may expect your next period anywhere from 2 to 6 weeks after your D&C. CONTROL -Do not assume that you cannot get soon after a D&C. Practice your usual method of control beginning with the first time you have intercourse after you have surgery. If you are taking control pills, please continue them unless told otherwise. DIET -Any diet is permissible FOLLOW UP -Please call the office at [phone] to arrange an appointment to [facility]: Hospital Discharge instructions Additional Instructions DISCHARGE INSTRUCTIONS FOR HYSTERECTOMY (TVH, LAVH, TLH) -During your time at home until your first office appointment we recommend that you assume the same type of activities that you have been doing while in the hospital. You may ride in the car unless otherwise specifically told not to. Unless specifically otherwise stated, generally you may drive the car when you feel strong enough to make emergency manuevers as needed. -You may walk up and down stairs. At first take one step at a time -- one step - stop, one step - stop, one step - stop. -You may do light housework, such as dusting, dishes, and cooking. -From your first office visit until the six week postoperative examination we recommend that you do not do any heavy lifting or straining, that you do not do any vacuuming, mopping, or sweeping. -We advise that you do not lift any heavy grocery bags from the cart to the car or from the car home. -We recommend that you do not do any yard work such as shoveling of snow, raking of leaves, cutting grass or gardening. -We recommend that you do not make beds or lift mattresses to change fitted sheets. -Light bleeding is normal for the first 4 weeks (i.e. changing panty liner 3 - 4 times a day.) Call me or go to the Emergency Room for heavy bleeding (soaking a maxipad every hour for 4 hours.) -Call the office or go to the Emergency Room if unable to reach me for fever, chills, worsening pain, persistent nausea/vomiting. -Call the office or go to the Emergency Room for shortness of breath, pain in your calfs or unusual swelling in your legs. -Showers are allowed until the vaginal drainage stops, then tub baths are generally acceptable unless otherwise specifically denied. -You will be advised at your first office visit when you may resume intercourse. This will be dependent upon the type of surgery performed. -We recommend that you use home remedies such as aspirin, Tylenol, Motrin for pain, Milk of Magnesia for laxative. If these preparations do not take care of your problem we want to be called and notified of your distress. -Please get prescriptions filled upon leaving the hospital and follow directions as outlined. Please note the refill limitations on the prescription. -If you have any specific questions not covered by these instructions please feel free to contact myself or one of the nurses who will answer your questions with my recommendations. -These instructions are intended to be a guideline for your postoperative care and recovery and are by no means intended to be totally complete. FOLLOW UP -[Please call the office at ([phone]) to make follow appointment before leaving the hospital]. -[2 Weeks] [ ][facility] Work Phone: Progress note No data available for this section [facility] Assessments No Assessments Information Available Chief Complaint and Reason for Visit Chief Complaint Postmenopausal Bleed ing, Thickened Endometrium Chief Complaint Obesity Menorrhagia, Enlarged Fibroid Uterus Chief Complaint Wmn F/U Obesity Menorrhagia, Enlarged Fibroid Uterus Menorrhagia, Enlarged Fibroid Uterus. Chief Complaint Wmn F/U Obesity Menorrhagia, Enlarged Fibroid Uterus Menorrhagia, Enlarged Fibroid Uterus. WMN f/u Reason for Visit BMI 28.0-28.9,adult Hyperlipemia Hypothyroidism Obesity Prediabetes Vitamin D deficiency S/P hysterectomy with oophorectomy Advance Directives No Advanced Directives Records Found Advance Directive Response Recorded Date/ Time Advance Directives No April 13, 2017 12:07pm Summary Purpose Family History Relationship Condition Age at Onset Recorded Date/T katlyn father Malignant neoplasm of prostate Unknown History of heart surgery Unknown History of heart valve replacement Unknow n Not Specified Myasthenia gravis Unknown No Family History Records Found Additional Source Comments Patient Care team informatio n (unrecognized section and content) Team Status: Active Member Role Status Dates Musa Evangelista DO Primary Care Provider Active Team Status: Inactive Member Role Status Dates Viktoria Birmingham APRN Attending Provider Active Start: April 17, 2023 End: April 17, 2023 Team Status: Inactive Member Role Status Dates Viktoria [place] APRN Attending Provider Active Start: June 13, 2023 End: June 13, 2023 Team Status: Active Member Role Status Dates Musa Evangelista DO Primary Care Provider Active Start: June 13, 2023 Viktoria Birmingham APRN Attending Provider Active Start: June 13, 2023 Team Status: Inactive Member Role Status Dates Musa Evangelista DO Primary Care Provider Active Start: June 22, 2023 End: June 22, 2023 Emy Delgadillo , Attending Provider Active Sta rt: June 22, 2023 End: June 22, 2023 Team Status: Inactive Member Role Status Dates Musa Evangelista DO Primary Care Provider Active Start: July 07, 2023 End: July 07, 2023 Emy Delgadillo DO Attending Provider Active Sta rt: July 07, 2023 End: July 07, 2023 Team Status: Inactive Member Role Status Dates Musa Evangelista DO Primary Care Provider Active Tsering Velez MD Attending Provider Active Team Status: Active Member Role Status Dates Musa Evangelista DO Primary Care Provider Active Viktoria [place] , [place] Attending Provider Active Team Status: Inactive Member Role Status Dates Musa Evangelista DO Primary Care Provider Active Emy Delgadillo , Attending Provider Active Team Status: Inactive Member Role Status Dates Musa Evangelista DO Primary Care Provider Active Start: August 08, 2023 End: August 08, 2023 Viktoria Birmingham , [place] Attending Provider Active Start: August 08, 2023 End: August 08, 2023 INFORMATION SOURCE (unrecogn ized section and content) DATE CREATED AUTHOR 11/25/2022 [facility] DATE CREATED AUTHOR AUTHOR'S ORGANIZ ATION 07/28/2023 [facility] DATE CREATED AUTHOR AUTHOR'S ORGANIZ ATION 08/06/2023 [facility] EPIC DATE CREATED AUTHOR AUTHOR'S ORGANIZ ATION 08/26/2023 [facility] DATE CREATED AUTHOR AUTHOR'S ORGANIZ ATION 09/04/2023 [facility] REASON FOR VISIT (unrecogniz ed section and content) DS Lab resultsDS WMN Med cov erageRD WM first after classWMN F/U, Initial WMNWMN F/U, Initial WMNWMN f/uCancelled RDFCCC RD Voicemail Goals (unrecognized section and content) Goals may be documented in a n alternate section FOR RECORDS PERTAINING TO PATIENTS WHO ARE OR HAVE BEEN ENROLLED IN A CHEMICAL DEPENDENCY/SUBSTANCEABUSE PROGRAM, SOME INFORMATION MAY BE OMITTED. This clinical summary was aggregated from multiple sources. Caution should be exercised in using it in the provision of clinical care. This summary normalizes information from multiple sources, and as a consequence, information in this document may materially change the coding, format and clinical context of patient data. In addition, data may be omitted in some cases. CLINICAL DECISIONS SHOULD BE BASED ON THE PRIMARY CLINICAL RECORDS. [facility]. provides no warranty or guarantee of the accuracy or completeness of information in this document.
== END 2023-09-16 08:48 | disposition home or self-care (01) ==
LOC: CT 08:48
PROVIDERS: PCP Family Medicine; Visit Provider Urology
DX: N20.0 Calculus of kidney (principal)
CPT/HCPCS: 74177; Q9967

== ENCOUNTER 2024-03-16 08:11 | Outpatient (OUT) | payer OTHER, SELFPAY ==
--- OUTSIDE RECORDS SUMMARY | 2024-03-16 08:15 | XMS_ITS | CCD ---
Author Organization [facility] CliniSyid Care Team Providers Care Sound Effects Supervisor Name Role Phone MUSA EVANGELISTA Primary Care Physician [phone] DO Musa Evangelista Primary Care Provider [phone] MD Tsering Velez Attending Provider [phone] VIKTORIA BIRMINGHAM Admitting Unavailable JEAN CARLOS, DR VIGIL Primary Care Unavailable VIKTORIA BIRMINGAHM Attending Unavailable VIKTORIA BIRMINGHAM Consulting Unavailable JEAN CARLOS, DR VIGIL Primary Care Unavailable AGUSTIN, DR SANDERS Attending Unavailable AGUSTIN, DR SANDERS Consulting Unavailable AGUSTIN, DR SANDERS Admitting Unavailable JEAN CARLOS, DR VIGIL Primary Care Unavailable ISAIAS ., DR GARCIA Attending Unavailable RIZVI ., DR GARCIA Consulting Unavailable ISAIAS ., DR GARCIA Admitting Unavailable NAMITA, DR WERNER Matthews Consulting Unavailable JEAN CARLOS, DR VIGIL Primary Care Unavailable AGUSTIN, DR SANDERS Attending Unavailable AGUSTIN, DR SANDERS Admitting Unavailable Viktoria [place] Unavailable Sandra Albarran Unavailable DO Musa Evangelista Primary Care Provider [phone] GE[place] Attending Provider DO Emy Delgadillo Attending Provider EMY DELGADILLO Attending Unavailable EMY DELGADILLO Attending Unavailable TSERING VELEZ Referring Unavailable Marshall RIZVI Attending Unavailable RIZVI, Marshall Conti Attending Unavailable JOSELYN NESBITT Attending Unavailable JOSELYN NESBITT Attending Unavailable RIZVI, Marshall Conti Attending Unavailable RIZVI, Marshall R Admitting Unavailable RIZVI, Marshall R Admitting Unavailable RIZVI, Marshall Conti Attending Unavailable LAZJOSELYN Admitting Unavailable LAZJOSELYN BOWSER Attending Unavailable RIZVI, Marshall Conti Attending Unavailable RIZVI, Marshall Conti Attending Unavailable RIZVI, Marshall Conti Attending Unavailable LAZJOSELYN Attending Unavailable LAZ, JOSELYN E Attending Unavailable Marshall RIZVI Referring Unavailable Viktoria Birmingham Admitting Unavailable Viktoria [place] Attending Unavailable Musa Evangelista Primary [facility] Unavailable Viscangelique, Emy Admitting Unavailable Viscangelique, Emy Attending Unavailable Musa Evangelista Primary Care Unavailable Viscangelique, Emy Admitting Unavailable Viscangelique, Emy Attending Unavailable Musa Evangelista Primary Care Unavailable JOSELYN NESBITT Attending Unavailable JOSELYN NESBITT Admitting Unavailable Unavailable Unavailable Unavailable Allergies Allergy Classification Reported Allergen(s) Allergy Type Date of Onset Reaction(s) Facility (20 sources) Azithromycin; Translations: [azithromycin] Drug Allergy 06-21-19 11 Vomiting (disorder), Diarrhea (finding) [facility] (11 sources) Sulfamethoxazole; Translations: [sulfamethoxazole ] Drug Allergy [facility] (10 sources) Sulfonamides (Antibiotic); Translations: [Sulfa (Sulfonamide Antibiotics)] Allergy to substance 07-29-19 23 Rash, Rash, [facility] (4 sources) Azithromycin; Translations: [Zithromax] Drug Allergy [facility] (2 sources) Sulfonamides (Antibiotic) Drug allergy (disorder) [facility] (9 sources) Substance with sulfonamide structure and antibacterial mechanism of action (substance) Drug allergy [facility] [employer] Other (1 source) Azithromycin Drug Allergy 08-08-19 24 [facility] Repository Medications Current Medications Medication Drug Class(es) [...] weekly for 30 days NOT COVERED Active atorvastatin 10 mg oral tablet (20 sources) HMG-CoA Reductase Inhibitor Start: 07-29-2022 take 10 mg by mouth once daily in the morning Atorvastatin Active 10 MG PO Every morning July 29, 2022 1:00am Start: 06-20-2019 atorvastatin O ral, Daily, Refills(s) 0 Start Date: 06/20/19 Status: Ordered Calcium (9 sources) Phosphate Binder, Calcium Start: 05-16-2011 Calcium 600+D Oral, BID, Refill(s) 0, Prophylaxis Start Date: 05/16/11 Status: Ordered calcium carbonate 1500 mg / cholecalciferol 200 unt oral tablet (8 sources) Vitamin D Start: 06-22-2023 take 1 tablet by mouth once daily at bedtime Calcium Carbonate-Vitami n D3 Active 1 TAB PO Daily at bedtime June 22, 2023 1:00am cephalexin 500 mg oral capsule (20 sources) Cephalosporin Antibacterial Start: 11-07-2023 End: 11-21-2023 take 1 capsule by mouth twice daily Keflex 500 mg Cap 500 mg = 1 cap(s), Oral, BID, X 14 day(s), # 28 cap(s), Refills(s) 0, Pharmacy: [facility] #[id number], 172, cm, 11/07/23 15:26:00 EDT, Height/Length Dosing, 84, kg, 11/07/23 15:26:00 EDT, Weight Dosing Start Date: 11/07/23 Stop Date: 11/21/23 Status: Ordered Start: 11-07-2023 End: 05-05-2024 take 1 capsule by mouth once daily Keflex 250 mg Cap 250 mg = 1 cap(s), Oral, Daily, X 30 day(s), # 30 cap(s), Refills(s) 5, Pharmacy: [facility] #[id number], 172, cm, 11/07/23 15:26:00 EDT, Height/Length Dosing, 84, kg, 11/07/23 15:26:00 EDT, Weight Dosing Start Date: 11/07/23 Stop Date: 05/05/24 Status: Ordered Start: 06-22-2023 End: 10-10-2023 take 500 mg by mouth twice daily Cephalexin Discontinued 500 MG PO Twice daily June 22, 2023 4:54pm October 10, 2023 3:26pm Start: 06-20-2023 take 1 tablet by juan twice daily, then take 1 tablet by mouth once daily cephalexin 500 mg oral tablet See Instructions, Take one tab, twice a day for 2 weeks, then take one tab daily for 1 month., # 58 tab(s), Refills(s) 0, Pharmacy: [facility] #[id number], 172, cm, 06/20/23 15:54:00 EST, Height/Length Dosing, 84, kg, 06/20/23 15:54:00 EST, Weight Dosing Start Date: 06/20/23 Status: Ordered Start: 07-29-2022 End: 06-22-2023 take 500 mg by mouth every six hours Cephalexin Discontinued 500 MG PO Q6H 28 July 29, 2022 1:00am June 22, 2023 4:54pm doxycycline hyclate 100 mg oral capsule (3 sources) Tetracycline-class Drug Start: 09-05-2023 take 1 capsule by mouth twice daily doxycycline hyclate 100 mg Cap 100 mg = 1 cap(s), Oral, BID, # 14 cap(s), Refills(s) 0, Pharmacy: [id number] #[id number], 172, cm, 06/20/23 15:54:00 EST, Height/Length Dosing, 84, kg, 06/20/23 15:54:00 EST, Weight Dosing Start Date: 09/05/23 Status: Ordered glucosamine sulfate 500 mg oral tablet (8 sources) Start: 06-22-2023 take 1 tablet by mouth twice daily Glucosamine Sulfate (Glucosamine) 500 mg Tablet Active 500 MG PO Twice daily June 22, 2023 1:00am lactobacillus acidophilus [id number] unt oral capsule (8 sources) Start: 06-22-2023 take 10 capsules by mouth once daily in the morning Lactobacillus Acidophilus (Probiotic) 10 billion cell Capsule Active 10 CELL PO Every morning June 22, 2023 1:00am levothyroxine sodium 0.05 mg oral tablet (20 sources) l-Thyroxine Start: 07-29-2022 take 50 ug by mouth once daily in the morning Levothyroxine Active 50 MCG PO Every morning July 29, 2022 1:00am Start: 04-24-2020 levothyroxine 50 mcg (0.05 mg) Tab Refills(s) 0 Start Date: 04/24/20 Status: Ordered magnesium gluconate 550 mg oral tablet (5 sources) Start: 10-10-2023 take 60 mg by mouth once daily Magnesium Gluconate Active 60 MG PO Daily October 10, 2023 12:00am 24 hr metFORMIN hydrochloride 500 mg extended release oral tablet (20 sources) Biguanide Start: 08-31-2023 End: 03-07-2024 take 2 tablets by mouth twice daily at dinner Metformin Active 0 .ROUTE .COMPLEX 360 March 07, 2024 3:44pm take 2 tablet by mouth twice a day with BREAKFAST AND DINNER Start: 06-22-2023 End: 08-31-2023 take 1000 mg by mouth twice daily Metformin Discontinued 1000 MG PO Twice daily June 22, 2023 1:00am August 31, 2023 1:48pm Start: 05-02-2023 metformin Oral Start Date: 05/02/23 Status: Ordered Start: 12-06-2022 take 2 tablets by mo uth twice daily at mealtime, then take 2 [...] - as directed Orally Active Multivitamin preparation (8 sources) Start: 06-22-2023 take 1 tablet by mouth once daily in the morning Multivitamin Active 1 TAB PO Every morning June 22, 2023 1:00am Start: 06-22-2023 take 1 tablet by juan once daily in the morning Multivitamin Active 1 TAB PO Every morning June 22, 2023 12:00am 24 hr oxybutynin chloride 10 mg extended release oral tablet (20 sources) Cholinergic Muscarinic Antagonist Start: 07-29-2022 take 10 mg by mouth once daily in the morning Oxybutynin Chloride Active 10 MG PO Every morning July 29, 2022 1:00am phentermine hydrochloride 15 mg oral capsule (10 sources) Sympathomimetic Amine Anorectic Start: 10-10-2023 End: 03-07-2024 take 15 mg by mouth once daily Phentermine Active 15 MG PO Daily March 07, 2024 3:45pm Potassium Bicarb-Citric Acid (Klor-Con/Ef) 25 mEq tablet, effervescent (9 sources) Start: 07-29-2022 Potassium Bicarb-Citric Acid (Klor-Con/Ef) 25 mEq tablet, effervescent Active 25 MEQ PO Twice daily July 29, 2022 1:00am Start: 07-29-2022 Potassium Bica rb-Citric Acid (Klor-Con/Ef) 25 mEq tablet, effervescent Active 25 MEQ PO Twice daily July 29, 2022 12:00am probiotic (9 sources) probiotic as dir ected Active sertraline 100 mg oral tablet (20 sources) Serotonin Reuptake Inhibitor Start: 05-16-2011 take 100 mg by mouth once daily in the morning Sertraline Active 100 MG PO Every morning July 29, 2022 1:00am Completed/Discontinued Medications Medication Drug Class(es) Dates Sig (Normalized) Sig (Original) acetaminophen 325 mg / HYDROcodone bitartrate 5 mg oral tablet (7 sources) Opioid Agonist Start: 07-07-2023 End: 10-10-2023 take 1 tablet by mouth every six hours Hydrocodone-Acetam inophen Discontinued 1 TAB PO Q6H 12 July 07, 2023 October 10, 2023 3:26pm ciprofloxacin 500 mg oral tablet (5 sources) Quinolone Antimicrobial Start: 05-02-2023 Cipro 500 mg Tab 500 mg = 1 tab(s), Oral, As Directed, Pt to take 1 tab the day before procedure and the 2nd tab the day of procedure once completed., # 2 tab(s), Refills(s) 0, Pharmacy: [facility] #[id number], 172, cm, 05/02/23 15:11:00 EST, Height/Length Dosing, 84, kg, 05/02/23 15:11:00 EST, Weight Dosing Start Date: 05/02/23 Status: Ordered Effer-K 25 mEq oral tablet, effervescent (5 sources) Start: 04-26-2022 take 1 tablet by mouth twice daily Effer-K 25 mEq oral tablet, effervescent 25 mEq = 1 tab(s), Oral, BID, # 60 tab(s), Refills(s) 11, Pharmacy: [facility] #[id number], 172, cm, 02/19/21 8:12:00 EDT, Height/Length Dosing, 84.5, kg, 02/19/21 8:12:00 EDT, Weight Dosing Start Date: 04/26/22 Status: Ordered ibuprofen 800 mg oral tablet (9 sources) Nonsteroidal Anti-inflammatory Drug Start: 07-29-2022 End: 06-22-2023 take 800 mg by mouth four times daily Ibuprofen Discontinued 800 MG PO Four times daily July 29, 2022 1:00am June 22, 2023 4:48pm K-Effervescent 25 mEq oral tablet, effervescent (7 sources) Start: 04-22-2023 End: 04-16-2024 take 1 tablet by mouth twice daily K-Effervescent 25 mEq oral tablet, effervescent 25 mEq = 1 tab(s), Oral, BID, X 30 day(s), # 60 tab(s), Refills(s) 11, Pharmacy: [facility] #[id number], 172, cm, 04/27/22 15:12:00 EST, Height/Length Dosing, 84, kg, 04/27/22 15:12:00 EST, Weight Dosing Start Date: 04/22/23 Stop Date: 04/16/24 Status: Ordered 3 ml liraglutide 6 mg/ml pen injector (20 sources) GLP-1 Receptor Agonist Start: 06-22-2023 End: 10-10-2023 Liraglutide (Victoza 3-Julius) 0.6 mg/0.1 mL (18 mg/3 mL) pen injector Discontinued 1.2 MG SUBCUT Every morning June 22, 2023 1:00am October 10, 2023 3:27pm Start: 05-02-2023 Victoza 6 mg/m L subcutaneous [...] daily for 30 days Active Magnesium glycinate (8 sources) Start: 06-22-2023 End: 10-10-2023 take 3000 mg by mouth once daily at bedtime Magnesium Glycinate Discontinued 3000 MG PO Daily at bedtime June 22, 2023 1:00am October 10, 2023 3:27pm Start: 06-22-2023 take 3000 mg by mout h once daily at bedtime Magnesium Glycinate Active 3000 MG PO Daily at bedtime June 22, 2023 12:00am potassium bicarbonate 25 meq effervescent oral tablet (11 sources) Start: 04-26-2022 take 1 tablet by mouth twice daily Effer-K 25 mEq oral tablet, effervescent 25 mEq = 1 tab(s), Oral, BID, # 60 tab(s), Refills(s) 11, Pharmacy: [facility] #[id number], 172, cm, 02/19/21 8:12:00 EDT, Height/Length Dosing, 84.5, kg, 02/19/21 8:12:00 EDT, Weight Dosing Start Date: 04/26/22 Status: Ordered Vitamin D 50,000 intl units (1.25 mg) oral capsule (9 sources) Start: 05-16-2011 Vitamin D 50,0 00 intl units (1.25 mg) oral capsule 50,000 [...] Da te Episodic/Chronic Calculus of urinary tract (13 sources) Kidney stone; Translations: [Calculus of kidney] Onset: 04-20-2022 Episodic Cancer of breast (9 sources) Malignant tumor of breast 08-30-2013 Chronic Cancer of breast (13 sources) Personal history of primary malignant neoplasm of breast; Translations: [Personal history of malignant neoplasm of breast] Episodic Diabetes mellitus without complication (20 sources) Other abnormal glucose; Translations: [Prediabetes] Onset: 11-14-2022 Episodic Disorders of lipid metabolism (20 sources) Hyperlipidemia; Translations: [Hyperlipidemia, unspecified] Onset: 11-11-2022 06-20-2019 Chronic Genitourinary symptoms and ill-defined conditions (13 sources) Urge incontinence; Translations: [Urge incontinence of urine] Onset: 04-20-2022 Chronic Genitourinary symptoms and ill-defined conditions (20 sources) Blood in urine; Translations: [Increased frequency of urination] 06-20-2019 Episodic Menstrual disorders (1 source) Excessive and frequent menstruation with regular cycle; Translations: [Excessive and frequent menstruation with regular cycle] Onset: 07-07-2023 Chronic Non-Hodgkin`s lymphoma (9 sources) Diffuse non-Hodgkin's lymphoma, lymphoblastic (clinical) 08-30-2013 Chronic Nutritional deficiencies (20 sources) Vitamin D deficiency; Translations: [Vitamin D deficiency, unspecified] Chronic Nutritional deficiencies (12 sources) Cobalamin deficiency; Translations: [Deficiency of other specified B group vitamins] 10-10-2023 Episodic Other bone disease and musculoskeletal deformities (9 sources) Osteopenia 08-30-2013 Episodic Other diseases of bladder and urethra (1 source) Male urethral stricture; Translations: [Unspecified urethral stricture, male, unspecified site] Onset: 06-14-2023 Episodic Other diseases of bladder and urethra (7 sources) Urethral stricture 05-02-2023 Episodic Other nervous system disorders (7 sources) Acute postoperative pain; Translations: [Other acute postprocedural pain] 07-07-2023 Episodic Other nutritional; endocrine; and metabolic disorders (18 sources) Obesity, unspecified; Translations: [Obesity, unspecified] Onset: [...] Chronic Other nutritional; endocrine; and metabolic disorders (8 sources) Body mass index (BMI) 29.0-29.9, adult; Translations: [Body Mass Index 29.0-29.9, adult] Episodic Other nutritional; endocrine; and metabolic disorders (3 sources) Body mass index (BMI) 28.0-28.9, adult; Translations: [Body Mass Index 28.0-28.9, adult] Episodic Other nutritional; endocrine; and metabolic disorders (11 sources) Overweight in adulthood with body mass index of 25 or more but less than 30; Translations: [Body mass index (BMI) 28.0-28.9, adult] 08-08-2023 Episodic Residual codes; unclassified (11 sources) Family history of diabetes mellitus; Translations: [Family history of diabetes mellitus] Episodic Residual codes; unclassified (2 sources) Acquired absence of both cervix and uterus; Translations: [Acquired absence of both cervix and uterus] 08-08-2023 Episodic Residual codes; unclassified (5 sources) Family history of diabetes mellitus; Translations: [Family history of diabetes mellitus] 10-06-2023 Episodic Thyroid disorders (20 sources) Hypothyroidism; Translations: [Thyroid nodule] 04-24-2020 Chronic Unclassified (1 source) Encounter for preprocedural laboratory examination; Translations: [Encounter for preprocedural laboratory examination] Onset: 06-22-2023 Urinary tract infections (17 sources) Chronic cystitis; Translations: [Other chronic cystitis without hematuria] Onset: 04-16-2022 Chronic Urinary tract infections (9 sources) Urinary tract infectious disease; Translations: [Urinary tract infection, site not specified] Onset: 09-26-2023 Episodic Past or Other Problems Problem Classification Problem Date Documented Date Episodic/Chronic Administrative/social admission (1 source) Dietary counseling and surveillance; Translations: [Dietary counseling and surveillance] Onset: 06-13-2023 Episodic Other endocrine disorders (1 source) Endocrine disorder, unspecified; Translations: [ENDOCRINE DISORDER UNSPECIFIED] Onset: 04-20-2022 Episodic Other nervous system disorders (1 source) Other acute postprocedural pain; Translations: [Other acute postprocedural pain] Onset: 07-07-2023 Episodic Unclassified (9 sources) STRESS FRACTURE RIGHT ANKLE 05-16-2011 Results Test Name Value Interpretation Reference Range Facility Consultation/Specialist Note on 03-11-2024 Consultation/Speciali st Note [id number]# 1.00[facility] Outside Recordson 02-20-2024 Outside Records [id number]#1 .00[facility] Consultation/Specialist Note on 11-22-2023 Consultation/Speciali st Note [id number]# 1.00[facility] Lab - Other Lab [facility] - Other Lab Results [id number]# 1.00[facility] C Urineon 11-10-2023 Bacteria identified Cx Nom (U) Microbiology PROCEDURE: Urine Culture [R1] SOURCE: U CleanCatch BODY SITE: COLLECTED DATE/TIME: 11/07/2023 15:48 EDT RECEIVED DATE/TIME: 11/08/2023 18:49 EDT START DATE/TIME: 11/08/2023 18:49 EDT FREE TEXT SOURCE: JOSELYN NESBITT PA-C, PA-C, JOSELYN Clark FINAL REPORTS Final Report [] Verified Date/Time: 11/10/2023 10:35 EDT >100,000 cfu/ml Escherichia coli SUSCEPTIBILITY RESULTS LEGEND: S=Susceptible, N/R=Not Reported, Blank=Data not available, or drug not advisable or tested, I=Intermediate, ESBL=Extended spectrum beta-lactamase, R=Resistant, TFG=Thymidine-depende nt strain, PHILIP=Beta-lactamase positive, ARMEN=mcg/m;(mg/L), S*=Predicted susceptible interp, [...] Levofloxacin >4 R Meropenem <=1 S Nitrofurantoin 64 I Piperacillin/ <=16 S Tazobactam Tetracycline <=4 S Tigecycline <=2 S Tobramycin <=4 S Trimethoprim/ <=2/38 S Sulfa Performing Locations R1: This test was performed at: [facility], [address] [place] [address], [phone]- , , [facility] Comment on above: Performed By: #### [id number] #### [facility] [address] [place] [id number] Bacteria identified Cx Nom (U) Microbiology PROCEDURE: Urine Culture [R1] SOURCE: U CleanCatch BODY SITE: COLLECTED DATE/TIME: 11/07/2023 15:48 EDT RECEIVED DATE/TIME: 11/08/2023 18:49 EDT START DATE/TIME: 11/08/2023 18:49 EDT FREE TEXT SOURCE: JOSELYN NESBITT PA-C, PA-C, JOSELYN Clark FINAL REPORTS Final Report [] Verified Date/Time: 11/10/2023 10:35 EDT >100,000 cfu/ml Escherichia coli SUSCEPTIBILITY RESULTS LEGEND: S=Susceptible, N/R=Not Reported, Blank=Data not available, or drug not advisable or tested, I=Intermediate, ESBL=Extended spectrum beta-lactamase, R=Resistant, TFG=Thymidine-depende nt strain, PHILIP=Beta-lactamase positive, ARMEN=mcg/m;(mg/L), S*=Predicted susceptible interp, [...] Levofloxacin >4 R Meropenem <=1 S Nitrofurantoin 64 I Piperacillin/ <=16 S Tazobactam Tetracycline <=4 S Tigecycline <=2 S Tobramycin <=4 S Trimethoprim/ <=2/38 S Sulfa Performing Locations R1: This test was performed at: [facility], [address] [place] [address], [address]- , , [facility] Comment on above: Performed By: #### [id number] #### [facility] [address] [place] [address] Lab - Other Lab [facility] - Other Lab Results [id number]#1 .00[facility] Ambulatory Visit Summaryon 0 11-07-2023 Ambulatory Visit Summary NICOLETTE EVANGELISTA :1975 Visit Date:11/07/2023 Ambulatory Visit Instructions Your Diagnosis Chronic cystitis Postinfective urethral stricture in female Kidney stones Urge incontinence Your Care Team Attending Physician - JOSELYN NESBITT PA-C Primary Care Physician - MUSA EVANGELISTA DO Referring Physician - Marshall RIZVI MD This Is Your Medications List cephalexin (Keflex 250 mg Cap) cephalexin (Keflex 500 mg Cap) Contact prescribing physician if questions or concerns atorvastatin calcium-vitamin D (Calcium 600+D) cephalexin (cephalexin 500 mg oral tablet) ergocalciferol (Vitamin D 50,000 intl units (1.25 mg) oral capsule) levothyroxine (levothyroxine 50 mcg (0.05 mg) Tab) liraglutide (Victoza 6 mg/mL subcutaneous injection) metformin oxybutynin (oxybutynin 10 mg ER Tab) potassium bicarbonate (K-Effervescent 25 mEq oral tablet, effervescent) sertraline (Zoloft 100 mg Tab) [Image Removed: STOP]Stop taking these medications ciprofloxacin (Cipro 500 mg Tab) doxycycline (doxycycline hyclate 100 mg Cap) potassium bicarbonate (Effer-K 25 mEq oral tablet, effervescent) Procedures Performed Hysterectomy (07/07/2023), Cystourethroscopy with dilation of urethral stricture (06/20/2023), Cystoscopy (07/16/2019), Cystourethroscopy with dilation of urethral stricture (07/16/2019), BILATERAL MASTECTOMY WITH TISSUE DIRECTOR PRINT INSERTION, bladder suspension, ESWL KIDNEY STONE X2, LEFT KNEE RECONSTRUCTIVE SURGERY, PARATHYROID GLAND EXCISION, Part of lobe of thyroid gland. Discharge Vitals Height 172 cm Height 68 in Weight 84 kg Weight 184.8 lb BMI 28.39 What to do next Scheduled Follow-Up Appointments Monday 3:00 PM EST With: JOSELYN NESBITT PA-C Where: [facility] Ambulatory Visit Summary NICOLETTE EVANGELISTA :1975 Visit Date:11/07/2023 Ambulatory Visit Instructions Your Diagnosis Chronic cystitis Postinfective urethral stricture in female Kidney stones Urge incontinence Your Care Team Attending Physician - JOSELYN NESBITT PA-C Primary Care Physician - MUSA EVANGELISTA DO Referring Physician - Marshall RIZVI MD This Is Your Medications List cephalexin (cephalexin 500 mg oral tablet) ciprofloxacin (Cipro 500 mg Tab) doxycycline (doxycycline hyclate 100 mg Cap) potassium bicarbonate (Effer-K 25 mEq oral tablet, effervescent) Contact prescribing physician if questions or concerns atorvastatin calcium-vitamin D (Calcium 600+D) ergocalciferol (Vitamin D 50,000 intl units (1.25 mg) oral capsule) levothyroxine (levothyroxine 50 mcg (0.05 mg) Tab) liraglutide (Victoza 6 mg/mL subcutaneous injection) metformin oxybutynin (oxybutynin 10 mg ER Tab) potassium bicarbonate (K-Effervescent 25 mEq oral tablet, effervescent) sertraline (Zoloft 100 mg Tab) Procedures Performed Hysterectomy (07/07/2023), Cystourethroscopy with dilation of urethral stricture (06/20/2023), Cystoscopy (07/16/2019), Cystourethroscopy with dilation of urethral stricture (07/16/2019), BILATERAL MASTECTOMY WITH TISSUE DIRECTOR PRINT INSERTION, bladder suspension, ESWL KIDNEY STONE X2, LEFT KNEE RECONSTRUCTIVE SURGERY, PARATHYROID GLAND EXCISION, Part of lobe of thyroid gland. Discharge Vitals Height 172 cm Height 68 in Weight 84 kg Weight 184.8 lb BMI 28.39 What to do next Scheduled Follow-Up Appointments Monday 3:00 PM EST With: JOSELYN NESBITT PA-C Where: [facility] Patient Educationon 11-07-19 24 Patient Education Obstetrics and Gynecology Urinary Tract Infection, Adult A urinary tract infection (UTI) is an infection of any part of the urinary tract. The urinary tract includes the kidneys, ureters, bladder, and urethra. These organs make, store, and get rid of urine in the body. An upper UTI affects the ureters and kidneys. A lower UTI affects the bladder and urethra. What are the causes? Most urinary tract infections are caused by bacteria in your genital area around your urethra, where urine leaves your body. These bacteria grow and cause inflammation of your urinary tract. What increases the risk? You are more likely to develop this condition if: ? You have a urinary catheter that stays in place. ? You are not able to control when you urinate or have a bowel movement (incontinence). ? You are female and you: ? Use a spermicide or diaphragm for control. ? Have low estrogen levels. ? Are . ? You have certain genes that increase your risk. ? You are sexually active. ? You take antibiotic medicines. ? You have a condition that causes your flow of urine to slow down, such as: ? An enlarged prostate, if you are male. ? Blockage in your urethra. ? A kidney stone. ? A nerve condition that affects your bladder control (neurogenic bladder). ? Not getting enough to drink, or not urinating often. ? You have certain medical conditions, such as: ? Diabetes. ? A weak disease-fighting system (immunesystem). ? Sickle cell disease. ? Gout. ? Spinal cord injury. What are the signs or symptoms? Symptoms of this condition include: ? Needing to urinate right away (urgency). ? Frequent urination. This may include small amounts of urine each time you urinate. ? Pain or burning with urination. ? Blood in the urine. ? Urine that smells bad or unusual. ? Trouble urinating. ? Cloudy urine. ? Vaginal discharge, if you are female. ? Pain in the abdomen or the lower back. You may also have: ? Vomiting or a decreased appetite. ? Confusion. ? Irritability or tiredness. ? A fever or chills. ? Diarrhea. The first symptom in older adults may be confusion. In some cases, they may not have any symptoms until the infection has worsened. How is this diagnosed? This condition is diagnosed based on your medical history and a physical exam. You may also have other tests, including: ? Urine tests. ? Blood tests. ? Tests for STIs (sexually transmitted infections). If you have had more than one UTI, a cystoscopy or imaging studies may be done to determine the cause of the infections. How is this treated? Treatment for this condition includes: ? Antibiotic medicine. ? Nwfz-vyi-xckvkfj medicines to treat discomfort. ? Drinking enough water to stay hydrated. If you have frequent infections or have other conditions such as a kidney stone, you may need to see a health care provider who specializes in the urinary tract (urologist). In rare cases, urinary tract infections can cause sepsis. Sepsis is a life-threatening condition that occurs when the body responds to an infection. Sepsis is treated in the hospital with IV antibiotics, fluids, and other medicines. Follow these instructions at home: Medicines ? Take vdvm-avx-jncewbu and prescription medicines only as told by your health care provider. ? If you were prescribed an antibiotic medicine, take it as told by your health care provider. Do not stop using the antibiotic even if you start to feel better. General instructions ? Make sure you: ? Empty your bladder often and completely. Do not hold urine for long periods of time. ? Empty your bladder after sex. ? Wipe from front to back after urinating or having a bowel movement if you are female. Use each tissue only one time when you wipe. ? Drink enough fluid to keep your urine pale yellow. ? Keep all follow-up visits. This is important. Contact a health care provider if: ? Your symptoms do not get better after 1?2 days. ? Your symptoms go away and then return. Get help right away if: ? You have severe pain in your back or your lower abdomen. ? You have a fever or chills. ? You have nausea or vomiting. Summary ? A urinary tract infection (UTI) is an infection of any part of the urinary tract, which includes the kidneys, ureters, bladder, and urethra. ? Most urinary tract infections are caused by bacteria in your genital area. ? Treatment for this condition often includes antibiotic medicines. ? If you were prescribed an antibiotic medicine, take it as told by your health care provider. Do not stop using the antibiotic even if you start to feel better. ? Keep all follow-up visits. This is important. This information is not intended to replace advice given to you by your health care provider. Make sure you discuss any questions you have with your health care provider. Document Revised: 01/15/2021 Document Revie (more content not included)... [facility] Urology Office/Clinic Noteon 11-07-2023 Urology Office/Clinic Note Chief Complaint F/U after cysto/UD HPI Staff PRW pt S/P Cysto/UD 06/20/23 DX: Urethral Stricture, Chronic Cystitis, Kidney Stone & Urge Incontinence *Effer K 25mEq bid & Oxybutynin 10mg ER therapy. PRW sent Cephalexin 500mg BID x2wks & then QD x1m at time of Cysto/UD (no UA documented, however encounter states UA today trace-intact blood, her bladder seems badly infected ) Recheck UA 08/21/23 *1+ blood, 1+ leuks and + nitrates +C&S 08/21/23 *> 100k E coli *Tx'd w/Doxy 100 mg bid x [address] 09/16/23 *2 mm stones in the left kidney Repeat C&S after abx completion 09/26/23 >100k E Coli Tx'd w/keflex 500mg 1 cap po BID x 10 days Dysuria: no Incomplete bladder emptying: no, PVR 26mL Hematuria: UA shows trace today Frequency: every hour an half Urgency: yes Nocturia: 2-3x's Stream: good stream Post void dripping: no Wearing pads/ Depends: no Urge incontinence: occasionally Stress incontinence: no Incontinence without Sensory Awareness: no Abdominal pain: no Flank pain: no History of Present Illness staff HPI reviewed [...] or suspicious lesions Assessment/Plan PRW pt 1. Chronic cystitis (N30.20: Other chronic cystitis without hematuria) UCx 03/28/23 - >100k E Coli, tx'd w/ Keflex Cysto/UD 06/20/23 - Diffuse red and inflamed bladder with inflammatory debris, no tumors, and large uterine imprint. Pt was given Keflex 500mg bid x2wks and then qd x1mo at time of cysto 06/20/23. Pt felt abx course improved sxs. 08/22/23 - >100k E. coli and <10k mixed skin contam, tx'd w/ doxycycline 100mg bid x7 days. Pt was asx. 09/26/23 - >100k E. coli, tx'd w/ Keflex 500mg bid x10 days. UA today shows trace-lysed blood, small leuks, and positive nitrites. Again has increased frequency and urgency. Discussed treating current infection and then repeating suppressive abx, longer time, given sxs only resolved temporarily. Pt is agreeable. -Urine sample to be sent for cx. Take Keflex 500mg bid x2wks -Start Keflex 250mg qd x at least 6mos after current abx course. Then can consider weaning down. -Pt to call if she gets any breakthrough infections. 2. Postinfective urethral stricture in female (N35.12: Postinfective urethral stricture, not elsewhere classified, female) S/p Cysto/UD 06/26/19. S/p Cysto/UD 06/20/23 - Dilated 20-30 Fr. PVR 26 (240) mL. Emptying well PO cysto/UD. Good stream. Frustrated that UTIs persist despite improvement in stream w UD. -Cont clinical monitoring 3. Kidney stones (N20.0: Calculus of kidney) Metabolic w/up 02/08/21 - significant low volume. KUB 04/16/22 - no urinary calculi. KUB 05/01/23 - neg for obvious stones. CT AP w con 09/16/23 [facility] - Several nonobstructing 2 mm stones in L kidney. Taking Effer-K 25mEq bid. Reviewed imaging w/ pt, has tiny L renal stones. No indication for intervention at this time. Will continue to monitor. -Cont Effer-K. Pt to call for refills. -KUB due in 1 year, will need order 4. Urge incontinence (N39.41: Urge incontinence) BBS (16). Taking Oxybutynin ER 10mg qd. Not wearing pads. Occasional UUI. -Cont Oxybutynin. Pt to call for refills. May consider weaning down if we can get her bladder to calm down/heal from the constant cystitis. Follow-up With When Contact Information JOSELYN NESBITT PA-C, URL [address] [place] [address] [phone] Additional Instructions: 6 mos (no labs) Patient Education Urinary Tract Infection, Adult Documentation recorded by the scribeduardo Abarca accurately reflects the services(s) I performed and decisions made by me. Authenticated by Joselyn Nesbitt PA-C on 11/07/2023 15:58:57. I, Bebe Abarca, personally scribed for Joselyn Nesbitt PA-C on 11/07/2023 15:50:56. . 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 Normal [facility] Comment on above: Result Comment: Elec tronically Signed By: JOSELYN NESBITT PA-C\.br\Date and Time Signed: 11/07/23 15:59 EDT\.br\Electronically Co-Signed By: Bebe Abarca\.br\Date and Time Co-Signed: 11/07/23 15:51 EDT Outside Recordson 10-11-2023 Outside Records [id number]# 1.00OTGTIFF [facility] Outside Records [id number]#1 .00OTGTIFF [facility] HbA1c HPLC (Bld) [Mass fract ion]on 10-10-2023 HbA1c (Bld) [Mass fraction] 6.2 % [facility] Lab - Other Lab [facility] - Other Lab Results [id number]#1 .[facility] - Other Lab Results [id number]#1 .[facility] C Urineon 09-28-2023 Bacteria identified Cx Nom (U) Microbiology PROCEDURE: Urine Culture [R1] SOURCE: U Random BODY SITE: COLLECTED DATE/TIME: 09/26/2023 15:07 EDT RECEIVED DATE/TIME: 09/26/2023 20:21 EDT START DATE/TIME: 09/26/2023 20:21 EDT FREE TEXT SOURCE: ISAIAS SMITH, Marshall RIZVI MD, Marshall Conti FINAL REPORTS Final Report [] Verified Date/Time: 09/28/2023 10:11 EDT >100,000 cfu/ml Escherichia coli SUSCEPTIBILITY RESULTS LEGEND: S=Susceptible, N/R=Not Reported, Blank=Data not available, or drug not advisable or tested, I=Intermediate, ESBL=Extended spectrum beta-lactamase, R=Resistant, TFG=Thymidine-depende nt strain, PHILIP=Beta-lactamase positive, ARMEN=mcg/m;(mg/L), S*=Predicted susceptible interp, [...] Levofloxacin >4 R Meropenem <=1 S Nitrofurantoin 64 I Piperacillin/ <=16 S Tazobactam Tetracycline <=4 S Tigecycline <=2 S Tobramycin <=4 S Trimethoprim/ <=2/38 S Sulfa Performing Locations R1: This test was performed at: [facility], [address] [place] [address], [facility] , , [facility] Comment on above: Performed By: #### 2 [id number] ####[address] [place] [address] Ambulatory Visit Summaryon 0 09-26-2023 Ambulatory Visit Summary NICOLETTE EVANGELISTA :1975 Visit Date:09/26/2023 Ambulatory Visit Instructions Your Diagnosis Recurrent UTI Your Care Team Attending Physician - Marshall RIZVI MD Primary Care Physician - MUSA EVANGELISTA DO This Is Your Medications List atorvastatin calcium-vitamin D (Calcium 600+D) cephalexin (cephalexin 500 mg oral tablet) ciprofloxacin (Cipro 500 mg Tab) doxycycline (doxycycline hyclate 100 mg Cap) ergocalciferol (Vitamin D 50,000 intl units (1.25 [...] urethral stricture (07/16/2019), BILATERAL MASTECTOMY WITH TISSUE DIRECTOR PRINT INSERTION, bladder suspension, ESWL KIDNEY STONE X2, LEFT KNEE RECONSTRUCTIVE SURGERY, PARATHYROID GLAND EXCISION, Part of lobe of thyroid gland. What to do next Scheduled Follow-Up Appointments Monday. 2023 2:45 PM EDT With: ISAIAS SMITH, Marshall Conti Where: [facility] URINALYSISOrdered By: SYSTEM SYSTEM on 09-26-2023 Color (U) Light-Yellow 1 (09/26/23 3:07 PM) Normal Yellow [facility] UA Auto SS Comment on above: Interpretive Data: M icroscopic readings are only performed on those samples that meet specific criteria set forth by [facility]. Glucose (U) [Mass/Vol] Negative Normal Negativemg/dL [facility] UA Auto SS Ketones Ql (U) Negative Normal Negativemg/dL [facility] UA Auto SS UA Bacteria 1+ graded/HPF Invalid Interpretation Code Tracegraded/H PF [facility] UA Auto SS UA Blood Negative Normal Negativemg/dL [facility] UA Aut o SS UA Clarity Clear (09/26/23 3:07 PM) Normal Clear [facility] UA Auto SS UA Leuk Est 250 Pritesh/uL Pritesh/uL Invalid Interpretation Code NegativeLeu/u L [facility] UA Auto SS UA Mucous Trace graded/LPF Normal Negativegra de d/LPF [facility] UA Auto SS UA Nitrite Negative Normal Negativemg/dL [facility] UA Aut o SS UA pH 5.5 *NA* (09/26/23 3:07 PM) Invalid Interpretation Code 5.0 - 9.0 [facility] UA Auto SS UA Protein Negative Normal Negativemg/dL [facility] UA Aut o SS UA RBC 0-3 graded/HPF Normal 0-3graded/HPF [facility] UA Auto SS UA Spec Grav 1.012 *NA* (09/26/23 3:07 PM) Invalid Interpretation Code 1.005 - 1.030 [facility] UA Auto SS UA Squam Epithelial 0-2 graded/HPF Normal 0-2graded/HP F [facility] UA Auto SS UA Urobilinogen Negative Normal Negativemg/dL [facility] U A Auto SS UA WBC 26-30 graded/HPF Invalid Interpretation Code 0-5graded/HPF [facility] UA Auto SS Urobilinogen (U) [Mass/Vol] Negative Normal Negativemg/dL [facility] UA Auto SS URINALYSISOrdered By: Ingrid Arrington on 09-26-2023 UA Spec Desc Random Urine (09/26/23 3:07 PM) Normal [facility] UA Auto SS Urinalysis with Microon Color (U) Light-Yellow Normal Yellow [facility] Comment on above: Result Comment: Micr oscopic readings are only performed on those samples that meet specific criteria set forth by [facility]. Performed By: #### 4 [id number] ####[facility] [address] [place] [address] Glucose (U) [Mass/Vol] Negative Normal Negative [facility] Comment on above: Performed By: #### 4 [id number] ####[facility] [address] [place] [address] Ketones Ql (U) Negative Normal Negative [facility] Comment on above: Performed By: #### 4 [id number] ####[facility] [address] [place] [address] UA Blood Negative Normal Negative [facility] Comment on above: Performed By: #### 4 [id number] ####[facility] [address] [place] [address] UA Bacteria 1+ [id number] Abnormal Trace [facility] Comment on above: Performed By: #### 4 [id number] ####[facility] [address] [place] [address] UA Clarity Clear Normal Clear [facility] Comment on above: Performed By: #### 4 [id number] ####[facility] [address] [place] [address] UA Leuk Est 250 Pritesh/uL Abnormal Negative [facility] Comment on above: Performed By: #### 4 [id number] ####[facility] [address] [place] [address] UA Mucous Trace Normal Negative [facility] Comment on above: Performed By: #### 4 [id number] ####[facility] [address] [facility] [place] [place] [address] UA Nitrite Negative Normal Negative [facility] Comment on above: Performed By: #### 4 [id number] ####[facility] [address] [facility] [place] [address] UA pH 5.5 Invalid Interpretation Code 5.0-9.0 [facility] Comment on above: Performed By: #### 4 [id number] ####[address] [facility] [place] [address] UA Protein Negative Normal Negative [facility] Comment on above: Performed By: #### 4 [id number] ####[address] [place] [address] UA RBC 0-3 Normal 0-3 [facility] Comment on above: Performed By: #### 4 [id number] ####[facility] [address] [facility] [place] [address] UA Spec Grav 1.012 Invalid Interpretation Code 1.005-1.030 [facility] Comment on above: Performed By: #### 4 [id number] ####[address] [facility] [place] [address] UA Squam Epithelial 0-2 Normal 0-2 [facility] Comment on above: Performed By: #### 4 [id number] ####[facility] [address] [place] [address] UA Urobilinogen Negative Normal Negative [facility] Comment on above: Performed By: #### 4 [id number] ####[facility] [address] [facility] [place] [address] UA WBC 26-30 Abnormal 0-5 [facility] Comment on above: Performed By: #### 4 [id number] ####[facility] [address] [place] [address] Urobilinogen (U) [Mass/Vol] Negative Normal Negative [facility] Comment on above: Performed By: #### 4 [id number] ####[facility] [address] [place] [address] UA Spec Desc Random Urine Normal [facility] Comment on above: Performed By: #### 4 [id number] ####[facility] [address] [place] [address] Pre-Certification Formon Pre-Certification Form [id number]#1 .00TIFF Normal [facility] RAD - CT Reporton 09-18-2023 RAD - CT Report [id number]#1 .00TIFF Normal [facility] Rad - Other Radiology Report on 09-18-2023 Rad - Other Radiology Report [id number]#1 .[facility] Record[facility] 08-28-2023 Outside Records [id number]# 1.[facility] C Urineon 08-25-2023 Bacteria identified Cx [...] <10,000 cfu/ml Mixed skin contaminants SUSCEPTIBILITY RESULTS LEGEND: S=Susceptible, N/R=Not Reported, Blank=Data not available, or drug not advisable or tested, I=Intermediate, ESBL=Extended spectrum beta-lactamase, R=Resistant, TFG=Thymidine-depende nt strain, PHILIP=Beta-lactamase positive, ARMEN=mcg/m;(mg/L), S*=Predicted susceptible interp, [...] Locations R1: This test was performed at: [facility], [address] [place] [address], [address] , , [facility] Comment on above: Performed By: #### 2 [id number] ####[facility] [address] [place] [address] Lab - Other Lab [facility] Lab - Other Lab Results [id number]#1. 00OTGTIFF Normal [facility] Ambulatory Visit Summaryon 0 08-21-2023 Ambulatory Visit Summary NICOLETTE EVANGELISTA :1975 Visit Date:08/21/2023 Ambulatory Visit Instructions Your Diagnosis Chronic cystitis Your Care Team Attending Physician - Marshall RIZVI MD Primary Care Physician - MUSA EVANGELISTA DO [...] urethral stricture (07/16/2019), BILATERAL MASTECTOMY WITH TISSUE DIRECTOR PRINT INSERTION, bladder suspension, ESWL KIDNEY STONE X2, LEFT KNEE RECONSTRUCTIVE SURGERY, PARATHYROID GLAND EXCISION, Part of lobe of thyroid gland. What to do next Scheduled Follow-Up Appointments Monday. 2023 2:45 PM EDT With: Marshall RIZVI MD Where: [facility] [place] Normal [facility] HCG ( test) IA.diegoi d Ql (U)Ordered By: Jesús Andrew on 07-07-2023 HCG ( test) Ql (U) Negative [facility] HCG,Urineon 07-07-2023 Beta HCG ( test) Ql (U) Negative Normal [facility] Comment on above: Result Comment: PERF ORMED BY: [facility] [address] [place] [address] PATHOLOGIST SETTER OUT GRACY BARRY M.D. Performed By: #### U HCG #### [address] 07-07-2023 L Specimen: [id number] Received: 07/07/23 Status: SUBHASH Valdes Num: [id number] Spec Type: Surgical Subm Dr: Emy Delgadillo DO Tissues: A Uterus w/ or w/o tubes ovaries except neoplastic or prolap (CERVIX, MARIS TU Procedures: HE/12, Gross/Micro L5 Age/ Patient Sex Location Account Attending Physician Nicolette Evangelista 48/F [place] [id number] Emy Delgadillo DO SPEC NUM: [id number] RECD: 07/07/23 STATUS: SUBHASH VALDES NUM: [id number] UMESH: 07/07/[address]: Emy Delgadillo DO ENTERED: 07/07/[address] [facility] [address]: SPEC TYPE: Surgical DEPT: S ORDERED: HE/12, Gross/Micro L5 ORDERED: HE/12, Gross/Micro L5 Pathological Diagnosis Uterus, cervix, bilateral [...] is 3 cm in average thickness with -------- Specimen: [id number] Received: 07/07/23 Status: SUBHASH Valdes Num: [id number] Spec Type: Surgical Subm Dr: Emy Delgadillo DO Tissues: A Uterus w/ or w/o tubes ovaries except neoplastic or prolap (CERVIX, MARIS TU Procedures: , Gross/Micro L5 -------- Patient: Nicolette Evangelista [id number] (Continued) -------- Specimen: [id number] Received: 07/07/23 (Continued) Gross Description (Continued) Signed (signature on file) Erin Cardenas MD 07/10/23 1302 -------- Specimen: [id number] Received: 07/07/23 Status: SUBHASH Valdes Num: [id number] Spec Type: Surgical Subm Dr: Emy Delgadillo, Tissues: A Uterus w/ or w/o tubes ovaries except neoplastic or prolap (CERVIX, MARIS TU Procedures: , Gross/Micro L5 -------- Patient: Nicolette Evangelista [id number] (Continued) -------- Specimen: [id number] Received: 07/07/23 (Continued) Gross Description [...] unilocular cyst filled with thin red-brown fluid. Tick Sewer sections are submitted in 12 cassettes as follows: A1 - Posterior cul-de-sac serosa and sections of 2 largest intramural nodules A2 - Cervix (anterior and posterior) A3-A4 - Anterior endomyometrium with intramural nodules (largest with potential necrosis in A4 A5-A6 - Intramural nodules A7-A9 - Right adnexa with fimbria entirely submitted A10-A12 - Left adnexa with fimbria entirely submitted CPT Codes 61544 -------- -------- (more content not included)... Normal [facility] Lab - Other Lab [facility] Lab - Other Lab Results [id number]#1 .00OTGTIFF [facility] Outside Recordson 07-07-2023 Outside Records [id number]#1 .[facility] - Other Lab [facility] Lab - Other Lab Results [id number]# 1.00OTGTIFF [facility] Automated basophil %Ordered By: Emy Delgadillo on 06-22-2023 Basophils/100 WBC (Bld) 0.4 % Normal . [facility] Comment on above: Performed By: #### C BC #### [address] Automated basophil countOrde red By: Emy Sebastien on 06-22-2023 Basophils (Bld) [#/Vol] 0.0 10*3/uL Normal 0.0-0.2 [facility] Comment on above: Result Comment: PERF ORMED BY: [place] [address] PATHOLOGIST SETTER OUT GRACY BARRY M.D. Performed By: #### C BC #### [address] Automated blood monocyte cou ntOrdered By: Emy Delgadillo on 06-22-2023 Monocytes (Bld) [#/Vol] 0.5 10*3/uL Normal 0.0-0.8 [facility] Comment on above: Performed By: #### C BC #### [address] Automated eosinophil %Ordere d By: Emy Sebastien on 06-22-2023 Eosinophils/100 WBC (Bld) 0.7 % Normal . [facility] Comment on above: Performed By: #### C BC #### [address] Automated eosinophil countOr dered By: Emy Sebastien on 06-22-2023 Eosinophils (Bld) [#/Vol] 0.1 10*3/uL Normal 0.0-0.45 [facility] Comment on above: Performed By: #### C BC #### [address] Automated monocyte %Ordered By: Emy Sebastien on 06-22-2023 Monocytes/100 WBC (Bld) 4.9 % Normal . [facility] Comment on above: Performed By: #### C BC #### [address] Automated neutrophil %Ordere d By: Emy Delgadillo on 06-22-2023 Neutrophils/100 WBC (Bld) 68.8 % Normal . [facility] Comment on above: Performed By: #### C BC #### [address] Complete Blood Count Auto Di ffon 06-22-2023 Mean Corpuscular HGB Conc 33.8 g/dL Normal 32.0-35.0 [facility] Comment on above: Performed By: #### C BC #### [address] NRBC% 0.0 /100{WBC} Normal 0-0.5 [facility] Comment on above: Performed By: #### C BC #### [address] Erythrocyte distribution wid th [Ratio] by Automated countOrdered By: Emy Delgadillo on 06-22-2023 Erythrocyte distribution width (RBC) [Ratio] 13.7 % Normal 11.9-15.3 [facility] Comment on above: Performed By: #### C BC #### [address] Erythrocytes [#/volume] in B lood by Automated countOrdered By: Emy Delgadillo on 06-22-2023 RBC (Bld) [#/Vol] 4.64 10*6/uL Normal 3.60-5.00 [facility] Comment on above: Performed By: #### C BC #### [address] Hematocrit [Volume Fraction] of Blood by Automated countOrdered By: Emy Delgadillo on 06-22-2023 Hematocrit (Bld) [Volume fraction] 41.9 % Normal 34.0-46.4 [facility] Comment on above: Performed By: #### C BC #### [address] Hemoglobin [Mass/volume] in BloodOrdered By: Emy Delgadillo on 06-22-2023 Hemoglobin (Bld) [Mass/Vol] 14.1 g/dL Normal 11.8-15.4 [facility] Comment on above: Performed By: #### C BC #### [address] Leukocytes [#/volume] correc tom for nucleated erythrocytes in Blood by Automated counOrdered By: Emy Delgadillo on 06-22-2023 WBC corrected for nucl RBC Auto (Bld) [#/Vol] 9.3 10*3/uL 3.8-11.6 [facility] Leukocytes [#/volume] in Blo od by Automated countOrdered By: Emy Delgadillo on 06-22-2023 WBC (Bld) [#/Vol] 9.3 10*3/uL Normal 3.8-11.6 [facility] Comment on above: Performed By: #### C BC #### [address] Lymphocytes [#/volume] in Bl ood by Automated countOrdered By: Emy Delgadillo on 06-22-2023 Lymphocytes (Bld) [#/Vol] 2.4 10*3/uL Normal 1.00-4.8 [facility] Comment on above: Performed By: #### C BC #### [address] Lymphocytes/100 leukocytes i n Blood by Automated countOrdered By: Emy Delgadillo on 06-22-2023 Lymphocytes/100 WBC (Bld) 25.2 % Normal . [facility] Comment on above: Performed By: #### C BC #### [address] MCH [Entitic mass] by Automa tom countOrdered By: Emy Delgadillo on 06-22-2023 MCH (RBC) [Entitic mass] 30.4 pg Normal 24.7-34.3 [facility] Comment on above: Performed By: #### C BC #### [address] MCHC Auto (RBC) [Mass/Vol]Or dered By: mEy Delgadillo on 06-22-2023 MCHC (RBC) [Mass/Vol] 33.8 g/dL 32.0-35.0 [facility] MCV [Entitic volume] by Auto mated countOrdered By: Emy Delgadillo on 06-22-2023 MCV (RBC) [Entitic vol] 90.2 fL Normal 80-100 [facility] Comment on above: Performed By: #### C BC #### [address] Neutrophils [#/volume] in Bl ood by Automated countOrdered By: Emy Delgadillo on 06-22-2023 Neutrophils (Bld) [#/Vol] 6.4 10*3/uL Normal 1.8-7.7 [facility] Comment on above: Performed By: #### C BC #### [address] Nucleated erythrocytes [Pres ence] in Blood by Automated countOrdered By: Emy Delgadillo on 06-22-2023 Nucleated RBC Auto Ql (Bld) 0.0 /100{WBC} 0-0.5 [facility] PST Type and Screenon 2023 ABO and Rh group Nom (Bld) Blood group B Rh(D) positive Normal [facility] Comment on above: Order Comment: Date of Surgery: [id number] Result Comment: PERF ORMED BY: [place] [address] PATHOLOGIST SETTER OUT GRACY BARRY M.D. Platelet mean volume [Entiti c volume] in Blood by Automated countOrdered By: Emy Delgadillo on 06-22-2023 Platelet mean volume (Bld) [Entitic vol] 7.8 fL Normal 6.3-10.7 [facility] Comment on above: Performed By: #### C BC #### [place] [address] [place] Platelets [#/volume] in Bloo d by Automated countOrdered By: Emy Delgadillo on 06-22-2023 Platelets (Bld) [#/Vol] 283 10*3/uL Normal 150-450 [facility] Comment on above: Performed By: #### C BC #### [place] [address] [place] Pre-Certification Formon Pre-Certification Form [id number]#1 .00TIFF Normal [facility] Consent for Procedure/Surger yon 06-21-2023 Consent for Procedure/Surgery [id number]#1 .00TIFF Normal [facility] Urology Office/Clinic Noteon 06-20-2023 Urology Office/Clinic Note [...] urine The Urethra was dilated to: 20-30 Czech with sounds. Specimens Removed: None Removal: Cystoscope [...] When Contact Information LAZ FLEMING, JOSELYN Clark, URAutumn In 4 months [address] [place] [address] Additional Instructions: Patient Education I, Ara Mabry , personally scribed for Dr. Rizvi on 06/20/2023 16:39:14. . Documentation recorded by the scribeAra, accurately reflects the services(s) I performed and decisions made by me. Problem List/Past Medical History Ongoing Chronic cystitis Frequency of urination Hematuria Hyperlipidemia Hypothyroidism Kidney stones Nocturia Poor urinary stream Urethral stricture Urge incontinence Historical Breast cancer Lymphoblastic lymphoma Osteopenia STRESS FRACTURE RIGHT ANKLE Procedure/Surgical History Cystourethroscopy with dilation of urethral s (more content not included)... Normal [facility] Comment on above: Result Comment: Elec tronically Signed By: Marshall RIZVI MD\.br\Date and Time Signed: 06/20/23 16:42 EST\.br\Electronically Co-Signed By: Ara Mabry\.br\Date and Time Co-Signed: 06/20/23 16:39 EST Insurance Correspondenceon 08-16-2022 Insurance Correspondence [id number]# 1.00TIFF Normal [facility] RAD - MISCon 05-10-2023 RAD - MISC [id number]#1 .00TIFF Normal [facility] Lab Reportson 05-03-2023 Lab Reports [id number]# 1.00TIFF Normal [facility] Lab Reports [id number]# 1.00TIFF [facility] Outside Recordson 05-03-2023 Outside Records [id number] #1.00OTGTIFF Normal [facility] RAD - Ultrasound Reporton RAD - Ultrasound Report [id number]# 1.00TIFF Normal [facility] Screenson 05-03-2023 Screens [id number]#1. 00TIFF Normal [facility] Patient Educationon 05-02-20 Patient Education Urology Urethral Stricture Urethral stricture [...] Follow these instructions at home: ? Take [id number] and prescription medicines only as told by [...] provider. Document Revised: 04/12/2022 Document Reviewed: 04/12/2022 [employer] Patient Education ? 2022 [employer]. Normal [facility] Urology Office/Clinic Noteon 05-02-2023 Urology Office/Clinic Note Chief Complaint 1 year with KUB HPI Staff PRW pt 1yr KUB done 05/01/23 at [facility]. DX: Kidney Stones, Urge Incontinence & [...] E&M of Est. Patient Moderate 30-39 Min 40395 2. Chronic cystitis (N30.20: Other chronic cystitis without hematuria) 03/28/23 - >100k E Coli, given Keflex UA 04/19/23 cloudy urine, positive nitrates, blood and leuks. Started on Ampicillin 500mg which she is still taking. No culture was done. UA today trace-intact blood which could be contamination or still clearing up from recent infection. see #1. Ordered: E&M of Est. Patient Moderate 30-39 Min 99299 3. Kidney stones (N20.0: Calculus of kidney) Metabolic w/up 02/08/21 shows significant low volume KUB done on 04/16/22 showed no urinary calculi. KUB 05/01/23 neg for obvious stones. Pt continues taking Effer-K 25mEq BID. no side effects. -Cont taking Effer-K Ordered: 78147 Measure Post Void residual urine and/or bladder capacity by US- non-imaging E&M of Est. Patient Moderate 30-39 Min 16809 Urnls Dip Stick Auto w/o Microscopy POC 07237 4. Urge incontinence (N39.41: Urge incontinence) BBS [...] E&M of Est. Patient Moderate 30-39 Min 64606 Orders: ciprofloxacin, 500 mg = 1 tab(s), Oral, As Directed, Pt to take 1 tab the day before procedure and the 2nd tab the day of procedure once completed., # 2 tab(s), Refills(s) 0, Pharmacy: [id number], 172, cm, 05/02/23 15:11:00 EST, Height/Length Dosing, 84, kg, 11... Follow-up With When Contact Information ISAIAS SMITH, Marshall Conti, URL [address] [place] [address]- Additional Instructions: Schedule cysto/UD Patient Education Urethral Stricture Documentation recorded by the carley Pollard accurately reflects the services(s) I performed and decisions made by me. Authenticated by Joselyn Nesbitt PA-C on 05/02/2023 18:23:43. I, Sherrell Pollard, personally scribed for Joselyn Nesbitt PA-C on 05/02/2023 15:39:52. . Problem List/Past Medical History Ongoing Chronic cystitis Frequency of urination Hematuria Hyperlipidemia Hypothyroidism Kidney stones Nocturia Poor urinary stream Urethral stricture Urge incontinence Histo (more content not included)... Normal [facility] Comment on above: Result Comment: Elec tronically Signed By: JOSELYN NESBITT PA-C\.br\Date and Time Signed: 05/02/23 18:23 EST\.br\Electronically Co-Signed By: Sherrell Pollard.br\Date and Time Co-Signed: 05/02/23 15:40 EST\.br\Electronically Co-Signed By: Sherrell Pollard.br\Date and Time Co-Signed: 05/02/23 15:43 EST GLYCOHEMOGLOBIN A1Con 2022 ADA RECOMMENDATION SEE BELOW Normal [facility] Comment on above: Result Comment: ADA RECOMMENDED LIMIT 4.0 - 6.0 ADA THERAPEUTIC TARGET < 7.0 ACTION SUGGESTED > 7.0 Performed By: #### A 1C #### [facility] [address] [address] [address] Rosendo Wilson Glucose [Mass/Vol] 137 mg/dL Normal [facility] Comment on above: Performed By: #### A 1C #### [facility] [address] [address] [address] Rosendo Wilson HbA1c (Bld) [Mass fraction] 6.4 % Critically high 4.5-6.2 [facility] Comment on above: Performed By: #### A 1C #### [facility] [address] [address] [address] Rosendo Wilson LIPID PROFILEon 11-11-2022 CHOL-HDL RATIO NORM SEE BELOW Normal [facility] Comment on above: Result Comment: 3.3 - 4.4 LOW RISK 4.4 - 7.1 AVERAGE RISK 7.1 - 11.0 MODERATE RISK >11.0 HIGH RISK Performed By: #### T SANJIV4, LIPID, CMP #### [facility] [address] [address] [address] Rosendo Wilson Cholesterol [Mass/Vol] 200 mg/dL Normal <=200 [facility] Comment on above: Performed By: #### T SANJIV4, LIPID, CMP #### [facility] [address] [address] [address] Rosendo Wilson Cholesterol in HDL [Mass/Vol] 67 mg/dL Critically high 40-60 [facility] Comment on above: Performed By: #### T SANJIV4, LIPID, CMP #### [facility] [address] [address] [address] Rosendo Wilson Cholesterol in LDL [Mass/Vol] 122.0 mg/dL Normal [facility] Comment on above: Performed By: #### T SANJIV4, LIPID, CMP #### [facility] [address] [address] [address] Rosendo Wilson Cholesterol.total/Cho lesterol in HDL [Mass ratio] 3.0 {ratio} Normal [facility] Comment on above: Performed By: #### T SANJIV4, LIPID, CMP #### [facility] [address] [address] [address] Rosendo Wilson HDL NORMAL > or = 60 mg/dl - LO W CARDIOVASCULAR RISK <40 mg/dl - HIGH CARDIOVASCULAR RISK Normal [facility] Comment on above: Performed By: #### T SANJIV4, LIPID, CMP #### [facility] [address] [address] [address] Rosendo Wilson LDL CALC NORMAL SEE BELOW Normal [facility] Comment on above: Result Comment: <100 mg/dl OPTIMAL 100 - 129 mg/dl NEAR OR ABOVE OPTIMAL 130 - 159 mg/dl BORDERLINE HIGH 160 - 189 mg/dl HIGH >190 mg/dl VERY HIGH Performed By: #### T PABLO, LIPID, CMP #### [facility] [address] [address] [address] Rosendo Wilson Triglyceride [Mass/Vol] 55 mg/dL Normal <=150 [facility] Comment on above: Performed By: #### T PABLO, LIPID, CMP #### [facility] [address] [place] [address] Dr. Rosendo Wilson VLDL CALC 11.0 mg/dL Normal [facility] Comment on above: Performed By: #### T SANJIV4, LIPID, CMP #### [facility] [address] [address] [address] Rosendo Wilson PROF 14(COMP METB)on 023 Albumin [Mass/Vol] 3.3 g/dL Critically low 3.4-5.0 [facility] Comment on above: Performed By: #### T SANJIV4, LIPID, CMP #### [facility] [address] [address] [address] Rosendo Wilson Albumin/Globulin [Mass ratio] 0.8 {ratio} Normal [facility] Comment on above: Performed By: #### T PABLO, LIPID, CMP #### [facility] [address] [address] [address] Rosendo Wilson ALP [Catalytic activity/Vol] 91 U/L Normal 46-116 [facility] Comment on above: Performed By: #### T SHRFT4, LIPID, CMP #### [facility] [address] [address] [address] Rosendo Wilson ALT [Catalytic activity/Vol] 31 U/L Normal 14-59 [facility] Comment on above: Performed By: #### T SHRFT4, LIPID, CMP #### [facility] [address] [address] [address] Rosendo Wilson Anion gap [Moles/Vol] 11.3 mmol/L Normal [facility] Comment on above: Performed By: #### T SHRFT4, LIPID, CMP #### [facility] [address] [place] [address] Dr. Rosendo Wilson AST [Catalytic activity/Vol] 21 U/L Normal 15-37 [facility] Comment on above: Performed By: #### T SHRFT4, LIPID, CMP #### [facility] [address] [address] [address] Rosendo Wilson Bilirubin [Mass/Vol] 0.4 mg/dL Normal 0.2-1.0 [facility] Comment on above: Performed By: #### T SHRFT4, LIPID, CMP #### [facility] [address] [address] [address] Rosendo Wilson Calcium [Mass/Vol] 8.8 mg/dL Normal 8.5-10.1 [facility] Comment on above: Performed By: #### T SHRFT4, LIPID, CMP #### [facility] [address] [address] [address] Rosendo Wilson Chloride [Moles/Vol] 102 mmol/L Normal 98-107 [facility] Comment on above: Performed By: #### T SHRFT4, LIPID, CMP #### [facility] [address] [address] [address] Rosendo Wilson CO2 [Moles/Vol] 28.7 mmol/L Normal 21.0-32.0 [facility] Comment on above: Performed By: #### T SHRFT4, LIPID, CMP #### [facility] [address] [address] [address] Rosendo Wilson Creatinine [Mass/Vol] 0.83 mg/dL Normal 0.55-1.02 [facility] Comment on above: Performed By: #### T SHRFT4, LIPID, CMP #### [facility] [address] [address] [address] Rosendo Wilson EGFR-AF BERMUDIAN >60 Normal >=60 [facility] Comment on above: Performed By: #### T SHRFT4, LIPID, CMP #### [facility] [address] [place] [address] Dr. Rosendo Wilson EGFR-NON AF BERMUDIAN >60 Normal >=60 [facility] Comment on above: Performed By: #### T SHRFT4, LIPID, CMP #### [facility] [address] [place] [address] Dr. Rosendo Wilson Globulin (S) [Mass/Vol] 4.3 g/dL Normal [facility] Comment on above: Performed By: #### T RISSAFT4, LIPID, CMP #### [facility] [address] [place] [address] Dr. Rosendo Wilson Glucose [Mass/Vol] 114 mg/dL Critically high 74-106 [facility] Comment on above: Performed By: #### T SHRFT4, LIPID, CMP #### [facility] [address] [place] [address] Dr. Rosendo Wilson Potassium [Moles/Vol] 4.0 mmol/L Normal 3.5-5.1 [facility] Comment on above: Performed By: #### T SHRFT4, LIPID, CMP #### [facility] [address] [place] [address] Dr. Rosendo Wilson Protein [Mass/Vol] 7.6 g/dL Normal 6.4-8.2 [facility] Comment on above: Performed By: #### T SHRFT4, LIPID, CMP #### [facility] [address] [place] [address] Dr. Rosendo Wilson Sodium [Moles/Vol] 138 mmol/L Normal 136-145 [facility] Comment on above: Performed By: #### T SANJIV4, LIPID, CMP #### [facility] [address] [place] [address] Dr. Rosendo Wilson Urea nitrogen [Mass/Vol] 22.0 mg/dL Critically high 7.0-18.0 [facility] Comment on above: Performed By: #### T PABLO, LIPID, CMP #### [facility] [address] [place] [address] Dr. Rosendo Wilson Urea nitrogen/Creatinine [Mass ratio] 26.5 mg/mg Normal [facility] Comment on above: Performed By: #### T PABLO, LIPID, CMP #### [facility] [address] [place] [address] Dr. Rosendo Wilson TSH W/ REFLEX TO FT4on 11-11 TSH 3.281 uIU/mL Normal 0.358-3.740 [facility] Comment on above: Performed By: #### T PABLO, LIPID, CMP #### [facility] [address] [place] [address] Dr. Rosendo Wilson VITAMIN B12on 11-11-2022 Cobalamin (Vitamin B12) [Mass/Vol] 601.0 pg/mL Normal 193.0-986.0 [facility] Comment on above: Performed By: #### V ITGENE, VITB12 #### [facility] [address] [place] [address] Dr. Rosendo Wilson VITAMIN D 25 OHon 11-11-2022 VIT D 25-OH 44.3 ng/mL Normal [facility] Comment on above: Performed By: #### V ITGENE, VITB12 #### [facility] [address] [place] [address] Dr. Rosendo Wilson VIT D RANGES SEE BELOW Normal [facility] Comment on above: Result Comment: <20 ng/mL Vit D deficient 20 - <30 ng/mL Vit D insufficient 30 - 100 ng/mL Vit D sufficient >100 ng/mL Potential Toxicity Performed By: #### V ITAD, VITB12 #### [facility] [address] [place] [address] Dr. Rosendo Wilson HCG ( test) Masha manuel Ql (U)Ordered By: WERNER MALIK on 07-29-2022 HCG ( test) Ql (U) Negative [facility] TESTOSTERONE, FREE,DIRECT, T OTALon 04-20-2022 Free Testosterone(Direct) 1.1 pg/mL Normal 0.0-4.2 [facility] Comment on above: Result Comment: Perf ormed at: BN Performed By: #### T ESTFRD #### [facility] [address] [place] [address] Dr. Rosendo Wilson Testosterone [Mass/Vol] 23 ng/dL Normal 4-50 [facility] Comment on above: Result Comment: Perf ormed at: CB Performed By: #### T ESTFRD #### [facility] [address] [place] [address] Dr. Rosendo Wilson INSULINon 04-18-2022 Insulin 16.4 uIU/mL Normal 2.6-24.9 [facility] Comment on above: Performed By: #### I NSULIN #### [facility] [address] [place] [address] Dr. Rosendo Wilson XR KUB 1 VIEWon [...] by: WERNER BREAUX Date: 2022-04-18 07:14 Normal [facility] Vital Signs Date Time Vital Sign Value Performing Clinician Facility 03-07-2024 15:08-0400 Body height 172.72 cm [facility] 03-07-2024 15:08-0400 Body mass index (BMI) [Ratio] 26.9 kg/m2 [facility] 03-07-2024 15:08-0400 Body weight 80.45 kg [facility] 03-07-2024 15:08-0400 Diastolic blood pressure 76 mm[Hg] [facility] 03-07-2024 15:08-0400 Heart rate 92 /min [facility] 03-07-2024 15:08-0400 Respiratory rate 18 /min [facility] 03-07-2024 15:08-0400 SaO2% (BldA) [Mass fraction] 96 % [facility] 03-07-2024 15:08-0400 Systolic blood pressure 108 mm[Hg] [facility] 01-11-2024 14:41-0400 Body height 172.72 cm [facility] 01-11-2024 14:41-0400 Body mass index (BMI) [Ratio] 27.1 kg/m2 [facility] 01-11-2024 14:41-0400 Body weight 80.82 kg [facility] 01-11-2024 14:41-0400 Diastolic blood pressure 72 mm[Hg] [facility] 01-11-2024 14:41-0400 Heart rate 85 /min [facility] 01-11-2024 14:41-0400 Respiratory rate 18 /min [facility] 01-11-2024 14:41-0400 SaO2% (BldA) [Mass fraction] 95 % [facility] 01-11-2024 14:41-0400 Systolic blood pressure 105 mm[Hg] [facility] 11-21-2023 16:02-0400 Heart rate 98 /min [facility] 11-21-2023 15:32-0400 Body height 172.72 cm [facility] 11-21-2023 15:32-0400 Body mass index (BMI) [Ratio] 27.8 kg/m2 [facility] 11-21-2023 15:32-0400 Body weight 83.09 kg [facility] 11-21-2023 15:32-0400 Diastolic blood pressure 76 mm[Hg] [facility] 11-21-2023 15:32-0400 Respiratory rate 18 /min [facility] 11-21-2023 15:32-0400 SaO2% (BldA) [Mass fraction] 93 % [facility] 11-21-2023 15:32-0400 Systolic blood pressure 112 mm[Hg] [facility] 10-10-2023 15:42-0400 Body height 172.72 cm [facility] 10-10-2023 15:42-0400 Body mass index (BMI) [Ratio] 29.5 kg/m2 [facility] 10-10-2023 15:42-0400 Body weight 88.22 kg [facility] 10-10-2023 15:42-0400 Diastolic blood pressure 72 mm[Hg] [facility] 10-10-2023 15:42-0400 Heart rate 71 /min [facility] 10-10-2023 15:42-0400 Respiratory rate 18 /min [facility] 10-10-2023 15:42-0400 SaO2% (BldA) [Mass fraction] 98 % [facility] 10-10-2023 15:42-0400 Systolic blood pressure 108 mm[Hg] [facility] 08-08-2023 15:10-0500 Body height 172.72 cm DO Musa Jean Carlos Work Phone: [facility] 08-08-2023 15:10-0500 Body mass index (BMI) [Ratio] 28.1 kg/m2 DO Musa Evangelista Work Phone: [facility] 08-08-2023 15:10-0500 Body weight 83.91 kg DO Musa Evangelista Work Phone: [facility] 08-08-2023 15:10-0500 Diastolic blood pressure 69 mm[Hg] DO Musa Evangelista Work Phone: [facility] 08-08-2023 15:10-0500 Heart rate 96 /min DO Musa Evangelista Work Phone: [facility] 08-08-2023 15:10-0500 Respiratory rate 18 /min DO Musa Evangelista Work Phone: [facility] 08-08-2023 15:10-0500 SaO2% (BldA) [Mass fraction] 95 % DO Musa Evangelista Work Phone: [facility] 08-08-2023 15:10-0500 Systolic blood pressure 103 mm[Hg] DO Musa Evangelista Work Phone: [facility] 07-07-2023 15:51-0500 Body temperature 98 [degF] DO Musa Evangelista Work Phone: [facility] 07-07-2023 15:51-0500 Diastolic blood pressure 58 mm[Hg] DO Musa Evangelista Work Phone: [facility] 07-07-2023 15:51-0500 Heart rate 86 /min DO Musa Evangelista Work Phone: [facility] 07-07-2023 15:51-0500 Respiratory rate 20 /min DO Musa Evangelista Work Phone: [facility] 07-07-2023 15:51-0500 SaO2% (BldA) [Mass fraction] 93 % DO Musa Evangelista Work Phone: [facility] 07-07-2023 15:51-0500 Systolic blood pressure 99 mm[Hg] DO Musa Evangelista Work Phone: [facility] 07-07-2023 12:05-0500 Inhaled oxygen flow rate 2 L/min DO Musa Evangelista Work Phone: [facility] 07-07-2023 07:26-0500 Body height 172.72 cm DO Musa Evangelista Work Phone: [facility] 07-07-2023 07:26-0500 Body mass index (BMI) [Ratio] 28.8 kg/m2 DO Musa Evangelista Work Phone: [facility] 07-07-2023 07:26-0500 Body weight 85.8 kg DO Musa Evangelista Work Phone: [facility] 06-13-2023 09:45-0500 Body height 172.72 cm Viktoria Scally Other [facility] 06-13-2023 09:45-0500 Body mass index (BMI) [Ratio] 28.4 kg/m2 Viktoria Scally Other [employer] Other 06-13-2023 09:45-0500 Body weight 84.73 kg Viktoria Scally Other [facility] 06-13-2023 09:45-0500 Diastolic blood pressure 70 mm[Hg] Viktoria Scally Other [facility] 06-13-2023 09:45-0500 Respiratory rate 18 /min Viktoria Scally Other [employer] Other 06-13-2023 09:45-0500 SaO2% (BldA) [Mass fraction] 95 % Viktoria Scally Other [employer] Other 06-13-2023 09:45-0500 Systolic blood pressure 101 mm[Hg] Viktoria Scally Other [facility] 04-17-2023 15:30-0400 Body height 172.72 cm Viktoria Scally Other [employer] Other 04-17-2023 15:30-0400 Body mass index (BMI) [Ratio] 29.4 kg/m2 Viktoria Scally Other [employer] Other 04-17-2023 15:30-0400 Body weight 87.73 kg Viktoria Scally Other [employer] Other 04-17-2023 15:30-0400 Diastolic blood pressure 78 mm[Hg] Viktoria Scally Other [employer] Other 04-17-2023 15:30-0400 Respiratory rate 18 /min Viktoria Scally Other [employer] Other 04-17-2023 15:30-0400 SaO2% (BldA) [Mass fraction] 95 % Viktoria Scally Other [employer] Other 04-17-2023 15:30-0400 Systolic blood pressure 112 mm[Hg] Viktoria Scally Other [employer] Other 02-15-2023 15:00-0400 Body height 172.72 cm Viktoria Scally Other [employer] Other 02-15-2023 15:00-0400 Body mass index (BMI) [Ratio] 30.71 kg/m2 Viktoria Scally Other [employer] Other 02-15-2023 15:00-0400 Body weight 91.63 kg Viktoria Scally Other [employer] Other 02-15-2023 15:00-0400 Diastolic blood pressure 76 mm[Hg] Viktoria Scally Other [employer] Other 02-15-2023 15:00-0400 Respiratory rate 18 /min Viktoria Scally Other [employer] Other 02-15-2023 15:00-0400 SaO2% (BldA) [Mass fraction] 94 % Viktoria Scally Other [employer] Other 02-15-2023 15:00-0400 Systolic blood pressure 106 mm[Hg] Viktoria Scally Other [employer] Other 02-13-2023 15:15-0400 Body height 172.72 cm Sandra Fitt Other [employer] Other 02-13-2023 15:15-0400 Body mass index (BMI) [Ratio] 30.76 kg/m2 Sandra Fitt Other [employer] Other 02-13-2023 15:15-0400 Body weight 91.76 kg Sandra Fitt Other [employer] Other 12-27-2022 15:00-0400 Body height 172.72 cm Viktoria Scally Other [employer] Other 12-27-2022 15:00-0400 Body mass index (BMI) [Ratio] 30.91 kg/m2 Viktoria Scally Other [employer] Other 12-27-2022 15:00-0400 Body weight 92.22 kg Viktoria Scally Other [employer] Other 12-27-2022 15:00-0400 Diastolic blood pressure 80 mm[Hg] Viktoria Scally Other [employer] Other 12-27-2022 15:00-0400 Respiratory rate 18 /min Viktoria Scally Other [employer] Other 12-27-2022 15:00-0400 SaO2% (BldA) [Mass fraction] 95 % Viktoria Birmingham Other [facility] Other 12-27-2022 15:00-0400 Systolic blood pressure 118 mm[Hg] Viktoria Birmingham Other [facility] Other 07-29-2022 11:13-0500 Diastolic blood pressure 68 mm[Hg] DO Musa Evangelista Work Phone: [facility] 07-29-2022 11:13-0500 Heart rate 76 /min DO Musa Evangelista Work Phone: [facility] 07-29-2022 11:13-0500 Respiratory rate 16 /min DO Musa Evangelista Work Phone: [facility] 07-29-2022 11:13-0500 SaO2% (BldA) [Mass fraction] 93 % DO Musa Evangelista Work Phone: [facility] 07-29-2022 11:13-0500 Systolic blood pressure 106 mm[Hg] DO Musa Evangelista Work Phone: [facility] 07-29-2022 10:17-0500 Body height 172.72 cm DO Musa Evangelista Work Phone: [facility] 07-29-2022 10:17-0500 Body mass index (BMI) [Ratio] 27.4 kg/m2 DO Musa Evangelista Work Phone: [facility] 07-29-2022 10:17-0500 Body weight 82 kg DO Musa Evangelista Work Phone: [facility] 07-29-2022 08:56-0500 Body temperature 98.3 [degF] DO Musa Evangelista Work Phone: [facility] 04-27-2022 15:11-0500 Blood Pressure Location JOSELYN NESBITT [facility] 04-27-2022 15:11-0500 Diastolic blood pressure 90 mm[Hg] JOSELYN NESBITT [facility] 04-27-2022 15:11-0500 Heart rate 72 /min JOSELYN LAZ [facility] 04-27-2022 15:11-0500 Systolic blood pressure 135 mm[Hg] JOSELYN ALVAREZRY [facility] Encounters Encounter Date Encounter Type Care Provider Facility Start: 05-14-2024 ambulatory JOSELYN NESBITT Facili ty:[facility] [place] Start: 03-07-2024 End: 03-07-2024 ambulatory [facility] Work Phone: Start: 03-07-2024 End: 03-07-2024 Patient encounter procedure [facility] Work Phone: Start: 01-11-2024 End: 01-11-2024 ambulatory [facility] Work Phone: Start: 01-11-2024 End: 01-11-2024 Patient encounter procedure [facility] Work Phone: Start: 11-21-2023 End: 11-21-2023 ambulatory [facility] Work Phone: Start: 11-21-2023 End: 11-21-2023 Patient encounter procedure [facility] Work Phone: Start: 11-07-2023 End: 11-08-2023 ambulatory JOSELYN NESBITT Facility:[facility] Start: 11-07-2023 End: 11-07-2023 ambulatory JOSELYN NESBITT Facility:[facility] Start: 11-07-2023 End: 11-07-2023 Lab Drop off JOSELYN NESBITT [facility] Start: 11-07-2023 End: 11-07-2023 Patient encounter procedure [facility]BIT[facility] Start: 10-23-2023 ambulatory Marshall RIZVI Facili ty:[facility] Start: 10-10-2023 End: 10-10-2023 ambulatory [facility] Work Phone: Start: 10-10-2023 End: 10-10-2023 Patient encounter procedure [facility] Work Phone: Start: 09-26-2023 End: 09-27-2023 ambulatory Marshall RIZVI Facility:[facility] Start: 09-26-2023 End: 09-26-2023 Lab Drop off Marshall RIZVI [facility] Start: 09-26-2023 End: 09-26-2023 Patient encounter procedure Marshall RIZVI [facility] Start: 08-22-2023 End: 08-23-2023 ambulatory Marshall RIZVI Facility:[facility] Start: 08-21-2023 End: 08-22-2023 ambulatory Marshall RIZVI Facility:[facility] Start: 08-21-2023 End: 08-21-2023 Patient encounter procedure Marshall RIZVI [facility] Start: 08-15-2023 ambulatory JOSELYN Castro ty:[facility] Start: 08-08-2023 End: 08-08-2023 ambulatory DO Musa Evangelista Work Phone: [facility] Work Phone: Start: 08-08-2023 End: 08-08-2023 Patient encounter procedure DO Musa Evangelista Work Phone: [facility] Work Phone: Start: 08-04-2023 End: 08-04-2023 ambulatory EMY DELGADILLO Not Available Start: 07-21-2023 End: 07-21-2023 ambulatory Sandra Albarran Other [employer] Other Start: 07-21-2023 Telephone encounter Sandra Donaldson [facility] Start: 07-17-2023 End: 07-17-2023 ambulatory Sandra Fitt Other [employer] Other Start: 07-17-2023 Telephone encounter Sandra Donaldson [facility] Start: 07-07-2023 End: 07-07-2023 Admission to same day surgery center DO Musa Evangelista Work Phone: [facility] Start: 07-07-2023 End: 07-07-2023 ambulatory DO Musa Evangelista Work Phone: [facility] Work Phone: Start: 06-22-2023 End: 06-22-2023 Patient encounter procedure DO Musa Evangelista Work Phone: [facility] Work Phone: Start: 06-22-2023 End: 06-22-2023 ambulatory DO Musa Evangelista Work Phone: [facility] Work Phone: Start: 06-20-2023 End: 06-21-2023 ambulatory Marshall RIZVI Facility:[facility] Start: 06-20-2023 End: 06-20-2023 Patient encounter procedure Marshall RIZVI [facility] Start: 06-13-2023 [facility] Weight Management f/u Viktoria Birmingham [facility] Start: 06-13-2023 End: 06-13-2023 ambulatory Viktoria Birmingham [facility] [employer] Other Start: 06-13-2023 Registered Recurring DO Musa Evangelista Work Phone: [facility] Work Phone: Start: 06-13-2023 End: 06-13-2023 Patient encounter procedure DO Musa Evangelista Work Phone: [facility] Work Phone: Start: 05-17-2023 End: 05-17-2023 ambulatory EMY DELGADILLO Not Available Start: 05-02-2023 End: 05-03-2023 ambulatory JOSELYN NESBITT Facility:[facility] Start: 04-17-2023 ([facility]) Weight Management f/u Viktoria Birmingham [facility] Start: 04-17-2023 End: 04-17-2023 ambulatory Viktoria Birmingham Other [employer] Other Start: 04-17-2023 End: 04-17-2023 Patient encounter procedure DO Musa Evangelista Work Phone: [facility] Work Phone: Start: 02-15-2023 ([facility]) Weight Management f/u Viktoria Birmingham [facility] Start: 02-15-2023 End: 02-15-2023 ambulatory Viktoria Birmingham Other [employer] Other Start: 02-13-2023 ([facility] WMNI) WMN Init ial Provider Sandra Albarran [facility] Start: 02-13-2023 End: 02-13-2023 ambulatory Sandra Albarran Other [employer] Other Start: 01-25-2023 End: 01-25-2023 ambulatory Viktoria Birmingham Other [employer] Other Start: 01-25-2023 Telephone encounter [facility]toria [facility] Start: 12-27-2022 ([facility]/U) Weight Management f/u Viktoria Birmingham [facility] Start: 12-27-2022 End: 12-27-2022 ambulatory Viktoria Birmingham Other [employer] Other Start: 12-15-2022 End: 12-15-2022 ambulatory Viktoria Birmingham Other [employer] Other Start: 12-15-2022 Telephone encounter Viktoria [facility] Start: 11-11-2022 End: 11-12-2022 ambulatory VIKTORIA VINNIE Facility:[facility] Start: 07-29-2022 End: 07-29-2022 Admission to same day surgery center DO Musa Evangelista Work Phone: [facility] [place] Start: 07-29-2022 End: 07-29-2022 ambulatory DO Musa Evangelista Work Phone: [facility] Work Phone: Start: 04-27-2022 End: 04-27-2022 Lab Drop off JOSELYN NESBITT [facility] Start: 04-27-2022 End: 04-27-2022 Patient encounter procedure JOSELYN NESBITT [facility] Start: 04-16-2022 End: 04-17-[address] MUSA EVANGELISTA Facility:[facility] Start: 12-30-[address] MUSA EVANGELISTA Facil ity:[facility] Procedures Date Procedure Procedure Detail Performing Clinician Start: 07-07-2023 Total hysterectomy v ia vaginal approach DO Musa Evangelista Work Phone: Start: 07-07-2023 Hysterectomy JOSELYN JEAN Start: 06-22-2023 Antibody screen Viktoria Birmingham Comment on above: Order Comment: Date of Surgery: [id number] Result Comment: PERF ORMED BY: [facility] [place] [address] PATHOLOGIST SETTER OUT GRACY BARRY M.D. Start: 06-20-2023 Cystourethroscopy wi th dilation of urethral stricture Marshall RIZVI Start: 07-29-2022 Hysteroscopy DO Musa Evangelista Work Phone: Start: 07-16-2019 Cystoscopy JOSELYN Guanakito TAYLOREmily Start: 07-16-2019 Cystourethroscopy wi th dilation of urethral stricture JOSELYN NESBITT BILATERAL MASTECTOMY WITH TISSUE DIRECTOR PRINT INSERTION JOSELYN NESBITT bladder suspension 1 JOVITA NESBITT Comment on above: May 20 2011 ESWL KIDNEY STONE X2 JOVITA Gallito LAZ LEFT KNEE RECONSTRUC TIVE SURGERY JOSELYN NESBITT PARATHYROID GLAND EXCISION J ULISESJENY NESBITT Part of lobe of thyr oid gland (body structure) JOSELYN NESBITT Plan of Treatment Date Care Activity Detail Author Start: 07-07-2023 Hospital admission [facility] Start: 07-07-2023 [facility] Start: 07-29-2022 End: 07-29-2022 [facility] Work Phone: [facility] Immunizations Immunization Date Immunization Notes Care Provider Gianfranco reyes 10-19-2020 COVID-19 mRNA, Comirnaty (Pfizer) DO Msua Evangelista Work Phone: [facility] 10-08-2020 SARS-CoV-2 (COVID-19 ) mRNA BNT-162b2 vax JOSELYN NESBITT [facility] 09-21-2020 COVID-19 mRNA, Comirnaty (Pfizer) DO Musa Evangelista Work Phone: [facility] 09-17-2020 SARS-CoV-2 (COVID-19 ) mRNA BNT-162n7 vax JOSELYN NESBITT [facility] 03-04-2020 influenza virus vaccine, unspecified formulation JOSELYN NESBITT [facility] 02-19-2020 influenza virus vaccine, unspecified formulation JOSELYN NESBITT [facility] 03-19-2019 influenza virus vaccine, live, attenuated, for intranasal use JOSELYN NESBITT [facility] 03-19-2019 influenza virus vaccine, unspecified formulation JOSELYN NESBITT [facility] Comment on above: Result Comment: 2021: PATIENT RECIEVED AT WORK Payers Date Payer Category Payer Unknown [id number] .[id number] 1974 Unknown [id number] 2.16.84 [id number] 1974 Unknown [id number] .16.84 [id number] 1974 Unknown [id number] .16.84 [id number] 1974 Unknown [id number] 2.16.84 0.1.220064.3.579.2.1259 1974 Unknown [id number] 2.16.840 .[id number] 1974 Unknown [id number] 2.16.8 40.1.347675.3.579.2.727 1974 Unknown [id number] 2.16.8 40.1.421426.3.579.2.727 1974 Unknown [id number] 2.16.8 40.1.572057.3.579.2.727 1974 Unknown [id number] 2.16.8 40.1.818920.3.579.2.727 1974 Unknown [id number] 2.16.8 40.1.216315.3.579.2.727 1974 Unknown [id number] 2.16.8 40.1.755817.3.579.2.727 1974 Unknown [id number] 2.16.8 40.1.725169.3.579.2.727 1974 Unknown [id number] 2.16.8 40.1.769561.3.579.2.727 1974 Unknown [id number] 2.16.8 40.1.308204.3.579.2.727 1974 Unknown [id number] 2.16.8 40.1.720329.3.579.2.727 1974 Unknown [id number] 2.16.8 40.1.876151.3.579.2.727 1974 Unknown [id number] 2.16.8 40.1.278591.3.579.2.727 1974 Unknown [id number] 2.16.8 40.1.819385.3.579.2.727 1960 [facility] [id number] 1959 Unknown [id number] 1959 Unknown [id number] Unknown [id number] 2.16.8 [id number] Unknown [id number] 2.16.8 40.1.260778.3.579.2.531 Unknown [id number] 2.16.8 40.1.886924.3.579.2.531 Social History Date Type Detail Facility Tobacco smoking stat us AZIS Unknown if ever smoked [facility] Start: 1975 Sex Assigned At Female [facility] Start: 04-24-2020 End: 11-07-2023 Tobacco smoking status Never smoked tobacco (finding) [facility] Tobacco smoking status Never [facility] Sex Assigned At Female [facility] Start: 06-22-2023 End: 10-10-2023 Tobacco smoking status NHIS Ex-smoker (finding) [facility] Medical Equipment Procedure Code Equipment Code Equipment Origin al Text Equipment Identifier Dates [place] 32G X 4 MM Start: 02-15-2023 Goals Date Patient Goal Desired Activity /State Functional Status Date Assessment Result Facility 11-07-2023 Functional Status N/A [facility] 07-07-2023 Functional status Patient at Baseline [facility] Work Phone: 06-20-2023 Functional Status N/A [facility] 04-27-2022 Functional Status N/A [facility] Mental Status Date Assessment Result Facility 07-07-2023 Cognitive function Cognitive Sta tus Patient at Baseline [facility] Work Phone: Clinical Notes 04-27-2022 to 02-13-2024 Note Date & Type Note Facility 02-13-2024 Note - From: Jennifer Nick MA ([facility] ([facility])) To: Celia Eason CNP; Sent: 02/13/2024 13:30:59 EDT Subject: FW: Medication Management Due Date/Time: 02/14/2024 09:00:00 EDT Caller Name: NICOLETTE EVANGELISTA; Caller Number: Christine , M last visit: 11-16-22 next visit: none Patient matched by Jennifer Nick MA on 02/13/2024 13:28:22 EDT From: [facility] To: Celia Eason CNP Sent: February 13, 2024 8:00:55 AM CDT Subject: Medication Management Due: February 14, 2024 12:11:14 AM CDT On Hold Pending Signature Dispensed Drug: atorvastatin (atorvastatin 10 mg oral tablet), TAKE 1 TABLET BY MOUTH DAILY Quantity: 90 tab(s) Days Supply: 90 Refills: 0 Substitutions Allowed Notes from Pharmacy: From: Celia Eason APRN, CNP To: Jenaro Craig Herman ([facility] Sent: 02/13/2024 15:26:09 EDT Subject: RE: Medication Management Caller Name: NICOLETTE EVANGELISTA; Caller Number: Christine , M she is due for appt From: Celia Eason APRN, CNP To: [facility] Sent: 02/13/2024 15:28:32 EDT Subject: FW: Medication Management Submitted: Complete:atorvastatin (atorvastatin 10 mg oral tablet) Signed by Celia Eason APRN, CNP 02/13/2024 15:28:00 EDT Approved with modifications: atorvastatin (ATORVASTATIN 10MG TABLETS) TAKE 1 TABLET BY MOUTH DAILY Qty: 90 tab(s) Days Supply: 90 Refills: 0 Substitutions Allowed Route To Pharmacy - [facility] patient notified and has found a new family doctor in [place], [place]. She will have their office prescribe going forward. Medical record information given to patient for her records to be transferred. From: Jennifer Nick MA ([facility] ([facility])) To: Celia Eason CNP; Sent: 02/13/2024 16:05:57 EDT Subject: RE: Medication Management Caller Name: NICOLETTE EVANGELISTA; Caller Number: H , M [facility] 12-08-2023 Note - From: Jennifer Nick MA ([facility] ([facility])) To: Musa Evangelista DO; Sent: 12/08/2023 09:44:49 EDT Subject: FW: Medication Management Due Date/Time: 12/09/2023 09:00:00 EDT Caller Name: NICOLETTE EVANGELISTA; Caller Number: H , M last visit: 11-16-22 next visit: none From: [facility] (MAIL SERVICE) [facility] To: Celia Eason CNP Sent: December 08, 2023 8:00:59 AM CDT Subject: Medication Management Due: December 09, 2023 12:08:31 AM CDT On Hold Pending Signature Dispensed Drug: sertraline (sertraline 100 mg oral tablet), TAKE 1 TABLET BY MOUTH DAILY Quantity: 90 tab(s) Days Supply: 90 Refills: 0 Substitutions Allowed Notes from Pharmacy: From: Musa Evangelista DO To: [facility] (MAIL SERVICE) [facility] Sent: 12/08/2023 09:56:53 EDT Subject: FW: Medication Management Submitted: Complete:sertraline (sertraline 100 mg oral tablet) Signed by Musa Evangelista DO 12/08/2023 09:56:00 EDT Approved with modifications: sertraline (SERTRALINE 100MG TABLETS) TAKE 1 TABLET BY MOUTH DAILY Qty: 90 tab(s) Days Supply: 90 Refills: 3 Substitutions Allowed Route To Pharmacy - [facility] (MAIL SERVICE) [facility] Signed by Musa Evangelista DO [facility] 11-07-2023 Hospital Discharg e instructions Patient Education 11/07/2023 15:50:08 Urinary Tract Infection, Adult Urinary Tract Infection, Adult A urinary tract infection (UTI) is an infection of any part of the urinary tract. The urinary tract includes the kidneys, ureters, bladder, and urethra. These organs make, store, and get rid of urine in the body. An upper UTI affects the ureters and kidneys. A lower UTI affects the bladder and urethra. What are the causes? Most urinary tract infections are caused by bacteria in your genital area around your urethra, where urine leaves your body. These bacteria grow and cause inflammation of your urinary tract. What increases the risk? You are more likely to develop this condition if: You have a urinary catheter that stays in place. You are not able to control when you urinate or have a bowel movement (incontinence). You are female and you: ?Use a spermicide or diaphragm for control. ?Have low estrogen levels. ?Are . You have certain genes that increase your risk. You are sexually active. You take antibiotic medicines. You have a condition that causes your flow of urine to slow down, such as: ?An enlarged prostate, if you are male. ?Blockage in your urethra. ?A kidney stone. ?A nerve condition that affects your bladder control (neurogenic bladder). ?Not getting enough to drink, or not urinating often. You have certain medical conditions, such as: ?Diabetes. ?A weak disease-fighting system (immunesystem). ?Sickle cell disease. ?Gout. ?Spinal cord injury. What are the signs or symptoms? Symptoms of this condition include: Needing to urinate right away (urgency). Frequent urination. This may include small amounts of urine each time you urinate. Pain or burning with urination. Blood in the urine. Urine that smells bad or unusual. Trouble urinating. Cloudy urine. Vaginal discharge, if you are female. Pain in the abdomen or the lower back. You may also have: Vomiting or a decreased appetite. Confusion. Irritability or tiredness. A fever or chills. Diarrhea. The first symptom in older adults may be confusion. In some cases, they may not have any symptoms until the infection has worsened. How is this diagnosed? This condition is diagnosed based on your medical history and a physical exam. You may also have other tests, including: Urine tests. Blood tests. Tests for STIs (sexually transmitted infections). If you have had more than one UTI, a cystoscopy or imaging studies may be done to determine the cause of the infections. How is this treated? Treatment for this condition includes: Antibiotic medicine. Fghd-qxi-jjiicet medicines to treat discomfort. Drinking enough water to stay hydrated. If you have frequent infections or have other conditions such as a kidney stone, you may need to see a health care provider who specializes in the urinary tract (urologist). In rare cases, urinary tract infections can cause sepsis. Sepsis is a life-threatening condition that occurs when the body responds to an infection. Sepsis is treated in the hospital with IV antibiotics, fluids, and other medicines. Follow these instructions at home: Medicines Take bmff-cgl-lezyzzw and prescription medicines only as told by your health care provider. If you were prescribed an antibiotic medicine, take it as told by your health care provider. Do not stop using the antibiotic even if you start to feel better. General instructions Make sure you: ?Empty your bladder often and completely. Do not hold urine for long periods of time. ?Empty your bladder after sex. ?Wipe from front to back after urinating or having a bowel movement if you are female. Use each tissue only one time when you wipe. Drink enough fluid to keep your urine pale yellow. Keep all follow-up visits. This is important. Contact a health care provider if: Your symptoms do not get better after 1 2 days. Your symptoms go away and then return. Get help right away if: You have severe pain in your back or your lower abdomen. You have a fever or chills. You have nausea or vomiting. Summary A urinary tract infection (UTI) is an infection of any part of the urinary tract, which includes the kidneys, ureters, bladder, and urethra. Most urinary tract infections are caused by bacteria in your genital area. Treatment for this condition often includes antibiotic medicines. If you were prescribed an antibiotic medicine, take it as told by your health care provider. Do not stop using the antibiotic even if you start to feel better. Keep all follow-up visits. This is important. This information is not intended to replace advice given to you by your health care provider. Make sure you discuss any questions you have with your health care provider. Document Revised: 01/15/2021 Document Reviewed: 01/15/2021 [employer] Patient Education 2022 [employer]. Follow Up Care 10/19/2023 15:34:38 With:LAZ FLEMING, JOSELYN Clark, URL Address: [facility] [address] [address] [phone] When: Unknown Comments:6 mos (no labs) [facility] 09-18-2023 Note - [facility]: [facility] ([facility] To: Celia Eason CNP; Sent: 09/15/2023 09:11:20 EDT Subject: FW: Medication Management Due Date/Time: 09/16/2023 09:00:00 EDT Caller Name: NICOLETTE EVANGELISTA; Caller Number: , M From: [facility] To: Celia Eason CNP Sent: September 15, 2023 8:00:56 AM CDT Subject: Medication Management Due: September 16, 2023 12:03:56 AM CDT On Hold Pending Signature Dispensed Drug: sertraline (sertraline 100 mg oral tablet), TAKE 1 TABLET BY MOUTH DAILY Quantity: 90 tab(s) Days Supply: 90 Refills: 0 Substitutions Allowed Notes from Pharmacy: From: Musa Evangelista DO To: [facility] (MAIL SERVICE) [facility] Sent: 09/18/2023 10:21:59 EDT Subject: FW: Medication Management Submitted: Complete:sertraline (sertraline 100 mg oral tablet) Signed by Musa Evangelista DO 09/18/2023 10:21:00 EDT Approved with modifications: sertraline (SERTRALINE 100MG TABLETS) TAKE 1 TABLET BY MOUTH DAILY Qty: 90 tab(s) Days Supply: 90 Refills: 0 Substitutions Allowed Route To Pharmacy - [facility] (MAIL SERVICE) [facility] Signed by Musa Evangelista DO [facility] 09-04-2023 Note - From: Yun Agee ([facility] ([facility])) To: Celia Eason CNP; Sent: 09/04/2023 07:50:01 EDT Subject: FW: Medication Management Due Date/Time: 09/04/2023 09:00:00 EDT Caller Name: JEAN CARLOS NICOLETTE KOLB; Caller Number: , Patient matched by Yun Agee on 09/04/2023 07:49:49 EDT From: [facility] (MAIL SERVICE) [facility] To: Celia Eason CNP Sent: September 03, 2023 8:00:43 AM CDT Subject: Medication Management Due: September 04, 2023 12:31:07 AM CDT On Hold Pending Signature Dispensed Drug: atorvastatin (atorvastatin 10 mg oral tablet), TAKE 1 TABLET BY MOUTH DAILY Quantity: 90 tab(s) Days Supply: 90 Refills: 0 Substitutions Allowed Notes from Pharmacy: From: Celia Eason APRN, CNP To: [email or web address] [facility]) [facility] Sent: 09/04/2023 09:55:24 EDT Subject: FW: Medication Management Submitted: Complete:atorvastatin (atorvastatin 10 mg oral tablet) Signed by Celia Eason APRN, CNP 09/04/2023 09:55:00 EDT Approved with modifications: atorvastatin (ATORVASTATIN 10MG TABLETS) TAKE 1 TABLET BY MOUTH DAILY Qty: 90 tab(s) Days Supply: 90 Refills: 1 Substitutions Allowed Route To Pharmacy - [facility] ([facility] 06-26-2023 Note - From: Yun Agee ([facility] ([facility] To: Celia Eason CNP; Sent: 06/26/2023 08:36:12 EST Subject: FW: Medication Management Due Date/Time: 06/26/2023 09:00:00 EST Caller Name: JEAN CARLOS NICOLETTE KOLB; Caller Number: H , From: [facility]IL [facility] To: Celia Eason CNP Sent: June 25, 2023 8:00:40 AM DOCK COORDINATOR Subject: Medication Management Due: June 26, 2023 12:24:29 AM DOCK COORDINATOR On Hold Pending Signature Dispensed Drug: sertraline (sertraline 100 mg oral tablet), TAKE 1 TABLET BY MOUTH DAILY Quantity: 90 tab(s) Days Supply: 90 Refills: 0 Substitutions Allowed Notes from Pharmacy: From: Musa Evangelista DO To: [facility] (MAIL SERVICE) [facility] Sent: 06/26/2023 10:41:08 EST Subject: FW: Medication Management Submitted: Complete:sertraline (sertraline 100 mg oral tablet) Signed by Musa Evangelista DO 06/26/2023 10:41:00 EST Approved sertraline (SERTRALINE 100MG TABLETS) TAKE 1 TABLET BY MOUTH DAILY Qty: 90 tab(s) Days Supply: 90 Refills: 0 Substitutions Allowed Route To Pharmacy - [facility] (MAIL SERVICE) [facility] Signed by Musa Evangelista DO [facility] 06-13-2023 Note - From: Yun Agee ([facility] ([facility])) To: Celia Eason CNP; Sent: 06/13/2023 16:03:56 EST Subject: FW: Medication Management Due Date/Time: 06/14/2023 09:01:00 EST Caller Name: JEAN CARLOS OUMOU; Caller Number: , M Patient matched by Yun Agee on 06/13/2023 16:03:46 EST From: [facility] (MAIL SERVICE) [facility] To: Celia Eason TEJAL Sent: June 13, 2023 8:01:07 AM DOCK COORDINATOR Subject: Medication Management Due: June 14, 2023 12:07:09 AM DOCK COORDINATOR On Hold Pending Signature Dispensed Drug: atorvastatin (atorvastatin 10 mg oral tablet), TAKE 1 TABLET BY MOUTH DAILY Quantity: 90 tab(s) Days Supply: 90 Refills: 0 Substitutions Allowed Notes from Pharmacy: From: Musa Evangelista DO To: [facility] (MAIL SERVICE) [facility] Sent: 06/13/2023 16:53:16 EST Subject: FW: Medication Management Submitted: Complete:atorvastatin (atorvastatin 10 mg oral tablet) Signed by Musa Evangelista DO 06/13/2023 16:53:00 EST Approved with modifications: atorvastatin (ATORVASTATIN 10MG TABLETS) TAKE 1 TABLET BY MOUTH DAILY Qty: 90 tab(s) Days Supply: 90 Refills: 0 Substitutions Allowed Route To Pharmacy - [facility] (MAIL SERVICE) [facility] Signed by Musa Evangelista DO [facility] 06-13-2023 Hospital Discharg e instructions Follow Up Care 06/13/2023 14:00:48 With:LAZ FLEMING, JOSELYN Clark, URL Address: [address] [place], [place] [address] [address] When:Within 4 Month(s) [facility] [place] 06-13-2023 Evaluation note Encounter Date Diagnosis Assessment [...] Thyroid nodule (ICD-10 - E04.1) [facility]; left thyroid lobe lobectomy incidental [...] and make recommendations for long-term supplementation with vlgv-gtx-dukupzk formulations or prescription grade repletion. May, BMI 28.0-28.9,adult (ICD-10 - Z68.28) May, Other I have spent 30 minutes with this patient and over 50% of the visit was counseling done by myself, Jessica MARI. [employer] Other 10-30-2023 Evaluation note* Encounter Date Diagnosis [...] Thyroid nodule (ICD-10 - E04.1) [facility], [facility]; left thyroid lobe lobectomy incidental [...] and make recommendations for long-term supplementation with jqax-igf-cazwbjp formulations or prescription grade repletion. Mar, BMI 29.0-29.9,adult (ICD-10 - Z68.29) Mar, Other I have spent 30 minutes with this patient and over 50% of the visit was counseling done by myself, Jessica MARI. [employer] Other 08-30-2023 Evaluation note* Encounter Date Diagnosis [...] 30 minutes most days of the week. 30 Aug, 2023 Vitamin D deficiency (ICD-10 - E55.9) Vitamin D deficiency suspected. Vitamin D has been noted to have positive impact on mood and energy. We can recheck periodically and make recommendations for long-term supplementation with kgdb-fxn-lklikyz formulations or prescription grade repletion. Jan, Other I have spent 30 minutes with this patient and over 50% of the visit was counseling done by myself, Jessica MARI. [employer] Other 08-28-2023 Evaluation note* Encounter Date Diagnosis Assessment Notes Treatment Notes Treatment Clinical Notes Jan, Obesity, unspecified classification, unspecified obesity type, unspecified whether serious comorbidity present (ICD-10 - E66.9) Jan, BMI 30.0-30.9,adult (ICD-10 - Z68.30) Jan, Other Summary of Visi t: (A) Much emotional support provided today (B) Discussed including protein with all snacks (C) Reviewed the plate method [employer] Other 11-09-2022 Hospital Discharge instructions Patient Education 04/27/2022 14:59:23 Kidney Stones, Botz-iv-Ghep Kidney Stones Kidney stones are rock-like masses [...] Follow these instructions at home: Medicines Take idpp-jwt-lrzhinx and prescription medicines only as told by [...] 11/21/2008 Document Revised: 10/22/2019 Document Reviewed: 10/22/2019 [employer] Patient Education 2020 [employer]. Follow Up Care 02/19/2021 09:16:30 With:JOSELYN NESBITT PA-C, URL Address: [address] [place] [address] When: Unknown [facility] evaluation + Plan note Future Appointments Appointment Date:05/02/2023 03:00:00 PM Scheduled Provider:JOSELYN NESBITT PA-C Location:[facility] Appointment Type:URO Office Visit [facility] evaluation + Plan note Future Appointments Appointment Date:05/02/2023 03:00:00 PM Scheduled Provider:JOSELYN NESBITT PA-C Location:[facility] Appointment Type:URO Office Visit Diagnostic Tests Pending * [facility] Appointment Date:08/21/2023 03:00:00 PM Scheduled Provider: Location:[facility] Appointment Type:URO Nurse Visit Appointment Date:10/23/2023 02:45:00 PM Scheduled Provider:Marshall RIZVI MD [facility] Office Visit [facility] Evaluation + Plan note Future Appointments Appointment Date:10/23/2023 02:45:00 PM Scheduled Provider:Marshall RIZVI MD [facility] Type:URO Office Visit [facility] evaluation + Plan note Future Appointments Appointment Date:10/23/2023 02:45:00 PM Scheduled Provider:Marshall RIZVI MD Location:[facility] Appointment Type:URO Office Visit Diagnostic Tests Pending * [facility]ments Appointment Date:05/14/2024 03:00:00 PM Scheduled Provider:JOSELYN NESBITT PA-C Location:[facility] Appointment Type:URO Office Visit [facility] evaluation + Plan note Future Appointments Appointment Date:05/14/2024 03:00:00 PM Scheduled Provider:JOSELYN NSEBITT PA-C Location:[facility] Appointment Type:URO Office Visit Diagnostic Tests Pending * Urine Culture [facility] Work Phone: evaluation noteNo InformationNort Elliptic Other evaluation noteNort Elliptic Other evaluation note* Diagnosis Onset Date Resolution Status BMI 28.0-28.9,adult acute Hyperlipemia acute Hypothyroidism acute Obesity acute Prediabetes acute Vitamin D deficiency acute S/P hysterectomy with oophorectomy noneactive [facility] Work Phone: evaluation note* Diagnosis Onset Date Resolution Status BMI 28.0-28.9,adult acute Hyperlipemia acute Hypothyroidism acute Obesity acute Prediabetes acute Vitamin D deficiency acute S/P hysterectomy with oophorectomy noneactive BMI 29.0-29.9,adult acute Family history of diabetes mellitus (DM) acute Hyperlipemia acute Hypothyroidism acute Obesity acute Prediabetes acute Vitamin B 12 deficiency acut e Vitamin D deficiency acute [facility] Work Phone: evaluation note* Diagnosis Onset Date Resolution Status BMI 29.0-29.9,adult acute Family history of diabetes mellitus (DM) acute Hyperlipemia acute Hypothyroidism acute Obesity acute Prediabetes acute Vitamin B 12 deficiency acut e Vitamin D deficiency acute [facility] Work Phone: evaluation note* Diagnosis Onset Date Resolution Status BMI 29.0-29.9,adult acute Family history of diabetes mellitus (DM) acute Hyperlipemia acute Hypothyroidism acute Obesity acute Prediabetes acute Vitamin B 12 deficiency acut e Vitamin D deficiency acute BMI 29.0-29.9,adult acute Family history of diabetes mellitus (DM) acute Hyperlipemia acute Hypothyroidism acute Obesity acute Prediabetes acute Vitamin B 12 deficiency acut e Vitamin D deficiency acute [facility] Work Phone: Hiswkfr general Narrative - Reported* Type Description Date Medical History hypokalemia Medical History hyperlipidemia Medical History Hypothyroidism Medical History bladder trouble Medical History cancer Medical History insulin resistance Medical History prediabetes Medical History kidney stones Surgical History tonsillectomy Surgical History bilateral mastectomy Surgical History thyroidectomy, subtotal Surgical History knee surgery left Hospitalization History 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 TODAY -Take it easy the rest of [...] FOLLOW UP -Please call the office at [phone] to arrange an appointment [facility] Hospital Discharge instructions Additional Instructions [...] FOLLOW UP -[Please call the office at ([phone]) to make follow appointment before leaving the hospital]. -[2 Weeks] [ ][facility] Work Phone: Progress note No data available for this section [facility] Assessments No Assessments Information Available Chief Complaint [...] Vitamin D deficiency S/P hysterectomy with oophorectomy Chief Complaint WMN f/u Reason for Visit BMI 28.0-28.9,adult Hyperlipemia Hypothyroidism Obesity Prediabetes Vitamin D deficiency S/P hysterectomy with oophorectomy BMI 29.0-29.9,adult Family history of diabetes mellitus (DM) Hyperlipemia Hypothyroidism Obesity Prediabetes Vitamin B 12 deficiency Vitamin D deficiency Reason for Visit BMI 29.0-29.9,adult Family history of diabetes mellitus (DM) Hyperlipemia Hypothyroidism Obesity Prediabetes Vitamin B 12 deficiency Vitamin D deficiency Chief Complaint WMN f/u Reason for Visit BMI 29.0-29.9,adult Family history of diabetes mellitus (DM) Hyperlipemia Hypothyroidism Obesity Prediabetes Vitamin B 12 deficiency Vitamin D deficiency Chief Complaint WMN f/u 6 week f/u WMN f/u Reason for Visit BMI 29.0-29.9,adult Family history of diabetes mellitus (DM) Hyperlipemia Hypothyroidism Obesity Prediabetes Vitamin B 12 deficiency Vitamin D deficiency BMI 29.0-29.9,adult Family history of diabetes mellitus (DM) Hyperlipemia Hypothyroidism Obesity Prediabetes Vitamin B 12 deficiency Vitamin D deficiency Chief Complaint 6 week f/u WMN f/u WMN f/u Reason for Visit BMI 29.0-29.9,adult Family history of diabetes mellitus (DM) Hyperlipemia Hypothyroidism Obesity Prediabetes Vitamin B 12 deficiency Vitamin D deficiency BMI 29.0-29.9,adult Family history of diabetes mellitus (DM) Hyperlipemia Hypothyroidism Obesity Prediabetes Vitamin B 12 deficiency Vitamin D deficiency Advance Directives No Advanced Directives Records Found Advance Directive Response Recorded Date/ Time Advance Directives No April 13, 2017 12:07pm Advance Directive Response Recorded Date/ Time Advance Directives No April 13, 2017 1:07pm Summary Purpose Family History Relationship Condition Age [...] 2023 End: June 22, 2023 Emy Delgadillo DO Attending Provider Active Sta rt: June 22, [...] Evangelista DO Primary Care Provider Active Viktoria C Scally , CHEMISTRY SPECIALIST Attending Provider Active Team Status: Inactive Member Role Status Dates Musa Evangelista DO Primary Care Provider Active Emy Delgadillo DO Attending Provider Active Team Status: Inactive Member Role Status Dates Musa Evangelista DO Primary Care Provider Active Start: August 08, 2023 End: August 08, 2023 Viktoria C Scally , CHEMISTRY SPECIALIST Attending Provider Active Start: August 08, 2023 End: August 08, 2023 Team Status: Inactive Member Role Status Dates Musa Evangelista DO Primary Care Provider Active Start: October 10, 2023 End: October 10, 2023 Viktoria C Scally , CHEMISTRY SPECIALIST Attending Provider Active Start: October 10, 2023 End: October 10, 2023 Team Status: Inactive Member Role Status Dates Musa Evangelista DO Primary Care Provider Active Start: November 21, 2023 End: November 21, 2023 Viktoria C Scally , CHEMISTRY SPECIALIST Attending Provider Active Start: November 21, 2023 End: November 21, 2023 Team Status: Inactive Member Role Status Dates Musa Evangelista DO Primary Care Provider Active Start: January 11, 2024 End: January 11, 2024 Viktoria C Scally , CHEMISTRY SPECIALIST Attending Provider Active Start: January 11, 2024 End: January 11, 2024 Team Status: Inactive Member Role Status Dates Musa Evangelista DO Primary Care Provider Active Start: March 07, 2024 End: March 07, 2024 Viktoria C Scally , CHEMISTRY SPECIALIST Attending Provider Active Start: March 07, 2024 End: March 07, 2024 INFORMATION SOURCE (unrecogn ized section and content) DATE CREATED AUTHOR 11/25/2022 [facility] DATE CREATED AUTHOR AUTHOR'S ORGANIZ ATION 08/06/2023 [facility]ical [facility] DATE CREATED AUTHOR AUTHOR'S ORGANIZ ATION 11/09/2023 [facility] DATE CREATED AUTHOR AUTHOR'S ORGANIZ ATION 11/12/2023 [facility] DATE CREATED AUTHOR AUTHOR'S ORGANIZ ATION 11/18/2023 [facility] DATE CREATED AUTHOR AUTHOR'S ORGANIZ ATION 02/08/2024 [facility] DATE CREATED AUTHOR AUTHOR'S ORGANIZ ATION 03/12/2024 [facility] l REASON FOR VISIT (unrecogniz ed section [...] BE BASED ON THE PRIMARY CLINICAL RECORDS. [facility] [email or web address] [facility]. provides no warranty or guarantee of the accuracy or completeness of information in this document.
[2024-03-16 10:32] LABS: Chol HDL Ratio 2.7; Cholesterol 201 mg/dL (<=200); HDL Cholesterol 75 mg/dL (40-60); Triglycerides 41 mg/dL (<=150); VLDL CHOLESTEROL 8.2 mg/dL
[2024-03-16 11:15] LABS: Alanine Aminotransferase 38 U/L (14-59); Albumin Globulin Ratio 0.8; Albumin Level 3.2 g/dL (3.4-5.0); Alkaline Phosphatase 83 U/L (46-116); Anion Gap 9.2; Aspartate Amino Transferase 20 U/L (15-37); BUN Creatinine Ratio 31.1; Bilirubin Total 0.4 mg/dL (0.2-1.0); Calcium 8.5 mg/dL (8.5-10.1); Carbon Dioxide 30.4 mmol/L (21.0-32.0); Chloride 102 mmol/L (98-107); Estimated GFR (African America >60 (>=60); Estimated GFR (Non-African Ame >60 (>=60); Glucose 106 mg/dL (74-106); Potassium 4.6 mmol/L (3.5-5.1); Sodium 137 mmol/L (136-145); Total Protein 7.2 g/dL (6.4-8.2)
[2024-03-17 08:09] LABS: Vitamin B12 459 pg/mL (232-1245)
== END 2024-03-16 08:12 | disposition home or self-care (01) ==
LOC: LAB 08:12
PROVIDERS: PCP Nurse Practitioner; Visit Provider Nurse Practitioner Family
DX: E55.9 Vitamin D deficiency, unspecified (principal); E53.8 Deficiency of other specified B group vitamins; R73.03 Prediabetes; E66.9 Obesity, unspecified; Z83.3 Family history of diabetes mellitus
CPT/HCPCS: 36415; 80053; 80061; 82306; 82607

== ENCOUNTER 2024-05-15 07:13 | Outpatient (OUT) | payer OTHER, SELFPAY ==
--- OUTSIDE RECORDS SUMMARY | 2024-05-15 07:21 | XMS_ITS | CCD ---
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 Name Role Phone MUSA EVANGELISTA Primary Care Physician DO Musa Evangelista Primary Care Provider MD Tsering Velez Attending Provider VIKTORIA BIRMINGHAM Admitting Unavailable JEAN CARLOS, DR VIGIL Primary Care Unavailable VIKTORIA BIRMINGHAM Attending Unavailable VIKTORIA BIRMINGHAM Consulting Unavailable JEAN CARLOS, DR VIGIL Primary Care Unavailable AGUSTIN, DR SANDERS Attending Unavailable AGUSTIN, DR SANDERS Consulting Unavailable AGUSTIN, DR SANDERS Admitting Unavailable JEAN CARLOS, DR VIGIL Primary Care Unavailable ISAIAS ., DR GARCIA Attending Unavailable ISAIAS ., DR GARCIA Consulting Unavailable ISAIAS ., DR GARCAI Admitting Unavailable NAMITA, DR WERNER Matthews Consulting Unavailable JEAN CARLOS, DR VIGIL Primary Care Unavailable AGUSTIN, DR SANDERS Attending Unavailable AGUSTIN, DR SANDERS Admitting Unavailable Viktoria Birmingham Unavailable Sandra Albarran Unavailable DO Musa Evangelista Primary Care Provider GEORGIA Birmingham Attending Provider Viscangelique, DO Larsen Attending Provider VISCAngelique, EMY Diaz Attending Unavailable VISCAngelique, EMY Diaz Attending Unavailable TSERING VELEZ Referring Unavailable Viktoria Birmingham Admitting Unavailable Viktoria Birmingham Attending Unavailable Musa Evangelista Primary Care Unavailable Viscangelique, Emy Admitting Unavailable Viscangelique, Emy Attending Unavailable Musa Evangelista Primary Care Unavailable Viscangelique, Emy Admitting Unavailable Viscangelique, Emy Attending Unavailable Musa Evangelista Primary Care Unavailable JOSELYN NESBITT Attending Unavailable JOSELYN NESBITT Admitting Unavailable Tim HO-Ambreen TOURE Primary Care Provid er JOSELYN NESBITT Attending Unavailable RIZVI, Marshall Conti Attending Unavailable RIZVI, Marshall Conti Attending Unavailable RIZVI, Marshall R Referring Unavailable LAZ, JOSELYN Clark Attending Unavailable LAZ, JOSELYN Clark Attending Unavailable RIZVI, Marshall Conti Attending Unavailable RZIVI, Marshall R Admitting Unavailable RIZVI, Marshall R Admitting Unavailable RIZVI, Marshall R Attending Unavailable RIZIV, Marshall R Attending Unavailable RIZVI, Marshall R Attending Unavailable RIZVI, Marshall R Attending Unavailable Unavailable Unavailable Unavailable Allergies Allergy Classification Reported Allergen(s) Allergy Type Date of Onset Reaction(s) Facility (20 sources) Azithromycin; Translations: [azithromycin] Drug Allergy 06-21-19 11 Vomiting (disorder), Diarrhea (finding), Diarrhea, Vomiting [facility] (11 sources) Sulfamethoxazole; Translations: [sulfamethoxazole ] Drug Allergy [facility] (12 sources) Sulfonamides (Antibiotic); Translations: [Sulfa (Sulfonamide Antibiotics)] Allergy to substance 07-29-19 [facility] (4 sources) Azithromycin; Translations: [Zithromax] Drug Allergy [facility] (2 sources) Sulfonamides (Antibiotic) Drug allergy (disorder) [facility] (9 sources) Substance with sulfonamide structure and antibacterial mechanism of action (substance) Drug allergy [facility] Other (1 source) Azithromycin Drug Allergy 08-08-19 24 [facility] Medications Current Medications Medication Drug Class(es) [...] sources) HMG-CoA Reductase Inhibitor Start: 07-29-2022 take 1 tablet by mouth once daily in the morning Atorvastatin 10 mg tablet Active 10 MG PO Every morning July 29, 2022 12:00am Start: 06-20-2019 atorvastatin O ral, Daily, Refills(s) 0 Start Date: 06/20/19 Status: Ordered Calcium (9 sources) Phosphate Binder, Calcium Start: 05-16-2011 Calcium 600+D Oral, BID, Refill(s) 0, Prophylaxis Start Date: 05/16/11 Status: Ordered calcium carbonate 1500 mg / cholecalciferol 200 unt oral tablet (9 sources) Vitamin D Start: 06-22-2023 take 1 tablet by mouth once daily at bedtime Calcium Carbonate-Vitami n D3 600 mg-5 mcg (200 unit) Tablet Active 1 TAB PO Daily at bedtime June 22, 2023 12:00am cephalexin 500 mg oral capsule (20 sources) Cephalosporin Antibacterial Start: 11-07-2023 End: 11-21-2023 take 1 capsule by mouth twice daily Keflex 500 mg Cap 500 mg = 1 cap(s), Oral, BID, X 14 day(s), # 28 cap(s), Refills(s) 0, Pharmacy: [facility] #[id number], 172, cm, 11/07/23 15:26:00 EDT, Height/Length Dosing, 84, kg, 11/07/23 15:26:00 EDT, Weight Dosing Start Date: 11/07/23 Stop Date: 11/21/23 Status: Ordered Start: 11-07-2023 End: 05-05-2024 take 1 capsule by mouth once daily Keflex 250 mg Cap 250 mg = 1 cap(s), Oral, Daily, X 30 day(s), # 30 cap(s), Refills(s) 5, Pharmacy: [facility] #[id number], 172, cm, 11/07/23 15:26:00 EDT, Height/Length Dosing, 84, kg, 11/07/23 15:26:00 EDT, Weight Dosing Start Date: 11/07/23 Stop Date: 05/05/24 Status: Ordered Start: 06-22-2023 End: 10-10-2023 take 1 capsule by mouth twice daily Cephalexin 500 mg capsule Discontinued 500 MG PO Twice daily June 22, 2023 3:54pm October 10, 2023 2:26pm Start: 01-02-2024 take 1 tablet by juan th twice daily, then take 1 tablet by mouth once daily cephalexin 500 mg oral tablet See Instructions, Take one tab, twice a day for 2 weeks, then take one tab daily for 1 month., # 58 tab(s), Refills(s) 0, Pharmacy: [facility] #[id number], 172, cm, 06/20/23 15:54:00 EST, Height/Length Dosing, 84, kg, 06/20/23 15:54:00 EST, Weight Dosing Start Date: 06/20/23 Status: Ordered Start: 07-29-2022 End: 06-22-2023 take 1 capsule by mouth every six hours Cephalexin 500 mg capsule Discontinued 500 MG PO Q6H 28 July 29, 2022 12:00am June 22, 2023 3:54pm dexamethasone 1 mg oral tablet (1 source) Corticosteroid Start: 05-02-2024 take 1 tablet by mouth once daily Dexamethasone 1 mg tablet Active 1 MG PO Daily May 02, 2024 12:00am doxycycline hyclate 100 mg oral capsule (3 sources) Tetracycline-class Drug Start: 09-05-2023 take 1 capsule by mouth twice daily doxycycline hyclate 100 mg Cap 100 mg = 1 cap(s), Oral, BID, # 14 cap(s), Refills(s) 0, Pharmacy: [facility] #[id number], 172, cm, 06/20/23 15:54:00 EST, Height/Length Dosing, 84, kg, 06/20/23 15:54:00 EST, Weight Dosing Start Date: 09/05/23 Status: Ordered glucosamine sulfate 500 mg oral tablet (9 sources) Start: 06-22-2023 take 1 tablet by mouth twice daily Glucosamine Sulfate (Glucosamine) 500 mg Tablet Active 500 MG PO Twice daily June 22, 2023 12:00am lactobacillus acidophilus [id number] unt oral capsule (9 sources) Start: 06-22-2023 take 10 capsules by mouth once daily in the morning Lactobacillus Acidophilus (Probiotic) 10 billion cell Capsule Active 10 CELL PO Every morning June 22, 2023 12:00am levothyroxine sodium 0.05 mg oral tablet (20 sources) l-Thyroxine Start: 07-29-2022 take 1 tablet by mouth once daily in the morning Levothyroxine 50 mcg tablet Active 50 MCG PO Every morning July 29, 2022 12:00am Start: 04-24-2020 levothyroxine 50 mcg (0.05 mg) Tab Refills(s) 0 Start Date: 04/24/20 Status: Ordered magnesium gluconate 550 mg oral tablet (6 sources) Start: 10-10-2023 take 1 tablet by mouth once daily Magnesium Gluconate 30 mg (550 mg) tablet Active 60 MG PO Daily October 09, 2023 11:00pm 24 hr metFORMIN hydrochloride 500 mg extended release oral tablet (20 sources) Biguanide Start: 08-31-2023 End: 05-02-2024 take 2 tablets by mouth twice daily at dinner Metformin 500 mg tablet extended release 24 hr Active 0 .ROUTE .COMPLEX 360 May 02, 2024 4:14pm take 2 tablet by mouth twice a day with BREAKFAST AND DINNER Start: 06-22-2023 End: 08-31-2023 Metformin 500 mg tablet exte nded release 24 hr Discontinued 1000 MG PO Twice daily June 22, 2023 12:00am August 31, 2023 12:48pm Start: 06-22-2023 End: 08-31-2023 take 1000 mg by mouth twice daily Metformin Discontinued 1000 MG PO Twice daily June 22, 2023 1:00am August 31, 2023 1:48pm Start: 05-02-2023 metformin Oral Start Date: 05/02/23 Status: Ordered Start: 03-21-2023 take 1 tablet by juan th every twenty-four hours in the morning, then take 1 tablet by mouth at bedtime, then take 2 tablets by mouth once daily metFORMIN XR (GLUCOPHAGE XR) 500 mg 24 hr tablet Take 1 tablet (500 mg total) by mouth in the morning and 1 tablet (500 mg total) before bedtime. 2 tab 2x day . 03/21/2023 Active Start: 12-06-2022 take 2 tablets by mo [...] Start: 06-22-2023 take 1 tablet by juan th once daily in the morning Multivitamin Active 1 TAB PO Every morning June 22, 2023 12:00am Multivitamin Tablet (1 source) Start: 06-22-2023 take 1 tablet by mouth once daily in the morning Multivitamin Tablet Active 1 TAB PO Every morning June 22, 2023 12:00am 24 hr oxybutynin chloride 10 mg extended release oral tablet (20 sources) Cholinergic Muscarinic Antagonist Start: 07-29-2022 take 1 tablet by mouth once daily in the morning Oxybutynin Chloride 10 mg tablet extended release 24hr Active 10 MG PO Every morning July 29, 2022 12:00am phentermine hydrochloride 15 mg oral capsule (16 sources) Sympathomimetic Amine Anorectic Start: 10-10-2023 End: 05-02-2024 take 1 capsule by mouth once daily Phentermine 15 mg capsule Active 15 MG PO Daily May 02, 2024 4:14pm Potassium Bicarb-Citric Acid (Klor-Con/Ef) 25 mEq tablet, effervescent (10 sources) Start: 07-29-2022 Potassium Bicarb-Citric Acid (Klor-Con/Ef) [...] mouth once daily in the morning Sertraline 100 mg tablet Active 100 MG PO Every morning July 29, 2022 12:00am Completed/Discontinued Medications Medication Drug Class(es) Dates Sig (Normalized) Sig (Original) acetaminophen 325 mg / HYDROcodone bitartrate 5 mg oral tablet (8 sources) Opioid Agonist Start: 07-07-2023 End: 10-10-2023 take 1 tablet by mouth every six hours as needed for pain Hydrocodone-Acetam inophen 5-325 mg tablet Discontinued 1 TAB PO Q6H as needed for pain 12 July 07, 2023 October 10, 2023 2:26pm ciprofloxacin 500 mg oral tablet (5 sources) Quinolone Antimicrobial Start: 05-02-2023 Cipro 500 mg Tab 500 mg = 1 tab(s), Oral, As Directed, Pt to take 1 tab the day before procedure and the 2nd tab the day of procedure once completed., # 2 tab(s), Refills(s) 0, Pharmacy: [facility] #[id number], 172, cm, 05/02/23 15:11:00 EST, Height/Length Dosing, 84, kg, 05/02/23 15:11:00 EST, Weight Dosing Start Date: 05/02/23 Status: Ordered Effer-K 25 mEq oral tablet, effervescent (5 sources) Start: 04-26-2022 take 1 tablet by mouth twice daily Effer-K 25 mEq oral tablet, effervescent 25 mEq = 1 tab(s), Oral, BID, # 60 tab(s), Refills(s) 11, Pharmacy: [facility] #[id number], 172, cm, 02/19/21 8:12:00 EDT, Height/Length Dosing, 84.5, kg, 02/19/21 8:12:00 EDT, Weight Dosing Start Date: 04/26/22 Status: Ordered ibuprofen 800 mg oral tablet (10 sources) Nonsteroidal Anti-inflammatory Drug Start: 07-29-2022 End: 06-22-2023 take 1 tablet by mouth four times daily as needed for pain Ibuprofen 800 mg tablet Discontinued 800 MG PO Four times daily as needed for pain July 29, 2022 12:00am June 22, 2023 3:48pm K-Effervescent 25 mEq oral tablet, effervescent (7 sources) Start: 04-22-2023 End: 04-16-2024 take 1 tablet by mouth twice daily K-Effervescent 25 mEq oral tablet, effervescent 25 mEq = 1 tab(s), Oral, BID, X 30 day(s), # 60 tab(s), Refills(s) 11, Pharmacy: [facility] #[id number], 172, cm, 04/27/22 15:12:00 EST, Height/Length Dosing, 84, kg, 04/27/22 15:12:00 EST, Weight Dosing Start Date: 04/22/23 Stop Date: 04/16/24 Status: Ordered 3 ml liraglutide 6 mg/ml pen injector (20 sources) GLP-1 Receptor Agonist Start: 06-22-2023 End: 10-10-2023 Liraglutide (Victoza 3-Julius) 0.6 mg/0.1 mL (18 mg/3 mL) pen injector Discontinued 1.2 MG SUBCUT Every morning June 22, 2023 12:00am October 10, 2023 2:27pm Start: 05-02-2023 Victoza 6 mg/m L subcutaneous [...] Daily at bedtime June 22, 2023 12:00am Magnesium Glycinate 100 mg magnesium Capsule (1 source) Start: 06-22-2023 End: 10-10-2023 take 1 capsule by mouth once daily at bedtime Magnesium Glycinate 100 mg magnesium Capsule Discontinued 3000 MG PO Daily at bedtime June 22, 2023 12:00am October 10, 2023 2:27pm potassium bicarbonate 25 meq effervescent oral tablet (12 sources) Start: 04-26-2022 take 1 tablet by juan th twice daily Effer-K 25 mEq oral tablet, effervescent 25 mEq = 1 tab(s), Oral, BID, # 60 tab(s), Refills(s) 11, Pharmacy: [facility] #[id number], 172, cm, 02/19/21 8:12:00 EDT, Height/Length Dosing, [...] Active Problems Problem Classification Problem Date Documented Date Episodic/Chronic Calculus of urinary tract (13 sources) [...] deficiency; Translations: [Vitamin D deficiency, unspecified] Chronic Comment on above: Vitamin D deficiency suspected. Vitamin D has been noted to have positive impact on mood and energy. We can recheck periodically and make recommendations for long-term supplementation with ptio-zrs-tjqpelu formulations or prescription grade repletion. Nutritional deficiencies (15 sources) Cobalamin deficiency; Translations: [Deficiency of other specified B group vitamins] 10-10-2023 Episodic Other bone disease and musculoskeletal deformities (9 sources) Osteopenia 08-30-2013 Episodic Other diseases of bladder and urethra (1 source) Male urethral stricture; Translations: [Unspecified urethral stricture, male, unspecified site] Onset: 06-14-2023 Episodic Other diseases of bladder and urethra (7 sources) Urethral stricture 05-02-2023 Episodic Other nervous system disorders (8 sources) Acute postoperative pain; Translations: [Other acute postprocedural pain] 07-07-2023 Episodic Other nutritional; endocrine; and metabolic disorders (20 sources) Obesity, unspecified; Translations: [Obesity, unspecified] Onset: [...] Chronic Other nutritional; endocrine; and metabolic disorders (10 sources) Body mass index (BMI) 29.0-29.9, adult; Translations: [Body Mass Index 29.0-29.9, adult] Episodic Other nutritional; endocrine; and metabolic disorders (3 sources) Body mass index (BMI) 28.0-28.9, adult; Translations: [Body Mass Index 28.0-28.9, adult] Episodic Other nutritional; endocrine; and metabolic disorders (13 sources) Overweight in adulthood with body mass index of 25 or more but less than 30; Translations: [Body mass index (BMI) 28.0-28.9, adult] 08-08-2023 Episodic Residual codes; unclassified (13 sources) Family history of diabetes mellitus; Translations: [Family history of diabetes mellitus] Episodic Residual codes; unclassified (2 sources) Acquired absence of both cervix and uterus; Translations: [Acquired absence of both cervix and uterus] 08-08-2023 Episodic Residual codes; unclassified (6 sources) Family history of diabetes mellitus; Translations: [...] [Dietary counseling and surveillance] Onset: 06-13-2023 Episodic Mood disorders (1 source) Mood disorders Onset: 04-04-2024 04-04-2024 Other endocrine disorders (1 source) Endocrine disorder, unspecified; Translations: [ENDOCRINE DISORDER UNSPECIFIED] Onset: 04-20-2022 Episodic Other nervous system disorders (1 source) Other acute postprocedural pain; Translations: [Other acute postprocedural pain] Onset: 07-07-2023 Episodic Unclassified (9 sources) STRESS FRACTURE RIGHT ANKLE 05-16-2011 Unclassified (1 source) Onset: 04-04-2024 04-04-2024 Results Test Name Value Interpretation Reference Range Facility Outside [facility] 05-06-2024 Outside Records [id number]#1 .00[facility] Consultation/Specialist Note on 03-11-2024 Consultation/Speciali st Note [id number]# 1.00[facility] Outside [facility] 02-20-2024 Outside Records [id number]#1 .00[facility] Consultation/Specialist Note on 11-22-2023 Consultation/Speciali st Note [id number]# 1.00[facility] Lab - Other Lab [facility] Lab - Other Lab Results [id number]# 1.00[facility] C Urineon 11-10-2023 Bacteria identified Cx Nom [...] was performed at: [facility], [address] [place] [address], [address]- , , [facility] Comment on above: Performed By: #### 2 [id number] #### [facility] [address] [place] [address] Bacteria identified Cx Nom (U) Microbiology PROCEDURE: Urine Culture [R1] SOURCE: U CleanCatch BODY SITE: COLLECTED DATE/TIME: 11/07/2023 15:48 EDT RECEIVED DATE/TIME: 11/08/2023 18:49 EDT START DATE/TIME: 11/08/2023 18:49 EDT FREE TEXT SOURCE: JOSELYN NESBITT PA-C, PA-C, JENNIFER E FINAL REPORTS Final Report [] Verified Date/Time: [...] was performed at: [facility], [address] [place] [address], [address]- , , [facility] Comment on above: Performed By: #### 2 [id number] #### [facility] [address] [place] [address] Lab - Other Lab [facility] Lab - Other Lab Results [id number]#1 .00[facility]IFF [facility] Ambulatory Visit Summaryon 0 11-07-2023 Ambulatory Visit [...] urethral stricture (07/16/2019), BILATERAL MASTECTOMY WITH TISSUE YOUTH SPECIALIST INSERTION, bladder suspension, ESWL KIDNEY STONE X2, LEFT KNEE RECONSTRUCTIVE SURGERY, PARATHYROID GLAND EXCISION, Part of lobe of thyroid gland. Discharge Vitals Height 172 cm Height 68 in Weight 84 kg Weight 184.8 lb BMI 28.39 What to do next Scheduled Follow-Up Appointments Monday 3:00 PM EST With: JOSELYN NESBITT PA-C Where: [facility] Ambulatory Visit Summary NICOLETTE EVANGELISTA [...] urethral stricture (07/16/2019), BILATERAL MASTECTOMY WITH TISSUE YOUTH SPECIALIST INSERTION, bladder suspension, ESWL KIDNEY STONE X2, LEFT KNEE RECONSTRUCTIVE SURGERY, PARATHYROID GLAND EXCISION, Part of lobe of thyroid gland. Discharge Vitals Height 172 cm Height 68 in Weight 84 kg Weight 184.8 lb BMI 28.39 What to do next Scheduled Follow-Up Appointments Monday 3:00 PM EST With: JOSELYN NESBITT PA-C Where: [facility] Patient Educationon 11-07-19 Patient Education Obstetrics and Gynecology Urinary Tract [...] this condition includes: ? Antibiotic medicine. ? Bmcb-pny-kijcpdo medicines to treat discomfort. ? Drinking enough [...] these instructions at home: Medicines ? Take zmdt-yuy-nqidpig and prescription medicines only as told by [...] 01/15/2021 Document Revie (more content not included)... Normal [facility] Urology Office/Clinic Noteon 11-07-2023 Urology Office/Clinic [...] When Contact Information JOSELYN NESBITT PA-C, URL [address] [place] [address] [phone] Additional Instructions: 6 mos (no labs) Patient [...] (07/16/2019), BILA (more content not included)... Normal [facility] Comment on above: Result Comment: Elec tronically Signed By: JOSELYN NESBITT PA-C\.br\Date and Time Signed: 11/07/23 15:59 EDT\.br\Electronically Co-Signed By: Bebe Abarca\.br\Date and Time Co-Signed: 11/07/23 15:51 EDT Outside [facility] 10-11-2023 Outside Records [id number]# 1.00[facility] Outside Records [id number]#1 .00[facility] HbA1c HPLC (Bld) [Mass fract ion]on 10-10-2023 HbA1c (Bld) [Mass fraction] 6.2 % [facility] Lab - Other Lab [facility] Lab - Other Lab Results [id number]#1 .00[facility]GTIFF [facility] Lab - Other Lab [facility] Lab - Other Lab Results [id number]#1 [facility]23 Bacteria identified Cx [...] was performed at: [facility], [address] [place] [address], [facility] , , [facility] Comment on above: Performed By: #### 2 [id number] ####[facility] [id number] [place] [address] Ambulatory Visit Summaryon 0 09-26-2023 Ambulatory Visit [...] urethral stricture (07/16/2019), BILATERAL MASTECTOMY WITH TISSUE YOUTH SPECIALIST INSERTION, bladder suspension, ESWL KIDNEY STONE X2, LEFT KNEE RECONSTRUCTIVE SURGERY, PARATHYROID GLAND EXCISION, Part of lobe of thyroid gland. What to do next Scheduled Follow-Up Appointments Monday. 2023 2:45 PM EDT With: ISAIAS SMITH, Marshall Conti Where: [facility] URINALYSISOrdered By: SYSTEM SYSTEM on 09-26-2023 Color (U) Light-Yellow 1 (09/26/23 3:07 PM) Normal Yellow [facility] UA Auto SS Comment on above: Interpretive Data: M icroscopic readings are only performed on those samples that meet specific criteria set forth by [facility]. Glucose (U) [Mass/Vol] Negative Normal Negativemg/dL [...] Squam Epithelial 0-2 graded/HPF Normal 0-2graded/HP F [facility] UA Auto SS UA Urobilinogen Negative Normal Negativemg/dL [facility] U A Auto SS UA WBC 26-30 graded/HPF Invalid Interpretation Code 0-5graded/HPF [facility] UA Auto SS Urobilinogen (U) [Mass/Vol] Negative Normal Negativemg/dL [facility] UA Auto SS URINALYSISOrdered By: Ingrid Arrington on 09-26-2023 UA Spec Desc Random Urine (09/26/23 3:07 PM) Normal [facility] UA Auto SS Urinalysis with Microon Color (U) Light-Yellow Normal Yellow [facility] Comment on above: Result Comment: Micr oscopic readings are only performed on those samples that meet specific criteria set forth by [facility]. Performed By: #### 4 [id number] ####[facility] [address] [place] [address] Glucose (U) [Mass/Vol] Negative Normal Negative [facility] Comment on above: Performed By: #### 4 [id number] ####[facility] [id number] [place] [address] Ketones Ql (U) Negative Normal Negative [facility] Comment on above: Performed By: #### 4 [id number] ####[facility] [address] [place] [address] UA Blood Negative Normal Negative [facility] Comment on above: Performed By: #### 4 [id number] ####[facility] [address] [place] [address] UA Bacteria 1+ [id number] Abnormal Trace [facility] Comment on above: Performed By: #### 4 [id number] ####[facility] [address] [place] [address] UA Clarity Clear Normal Clear [facility] Comment on above: Performed By: #### 4 [id number] ####[facility] [address] [place] [address] UA Leuk Est 250 Pritesh/uL Abnormal Negative [facility] Comment on above: Performed By: #### 4 [id number] ####[facility] [address] [facility] [place] [address] UA Mucous Trace Normal Negative [facility] Comment on above: Performed By: #### 4 [id number] ####[facility] [id number] [facility] [place] [address] UA Nitrite Negative Normal Negative [facility] Comment on above: Performed By: #### 4 [id number] ####[facility] [address] [facility] [place] [address] UA pH 5.5 Invalid Interpretation Code 5.0-9.0 [facility] Comment on above: Performed By: #### 4 [id number] ####[id number] [facility] [place] [address] UA Protein Negative Normal Negative [facility] Comment on above: Performed By: #### 4 [id number] ####[address] [place] [address] UA RBC 0-3 Normal 0-3 [facility] Comment on above: Performed By: #### 4 [id number] ####[facility] [address] [place] [address], [place] [address] UA Spec Grav 1.012 Invalid Interpretation Code 1.005-1.030 [facility] Comment on above: Performed By: #### 4 [id number] ####[facility] Raafmgl[address]p782 [facility] [place] [address] UA Squam Epithelial 0-2 Normal 0-2 [facility] Comment on above: Performed By: #### 4 [id number] ####[facility] Dlwlt[address]141 [facility] [place] [address] UA Urobilinogen Negative Normal Negative [facility] Comment on above: Performed By: #### 4 [id number] ####[facility] Igdttwuifz059 [facility] [place] [address] UA WBC 26-30 Abnormal 0-5 [facility] Comment on above: Performed By: #### 4 [id number] ####[facility] [address] [place] [address] Urobilinogen (U) [Mass/Vol] Negative Normal Negative [facility] Comment on above: Performed By: #### 4 [id number] ####[id number] [place] [address] UA Spec Desc Random Urine Normal [facility] Comment on above: Performed By: #### 4 [id number] ####[address] [place] [address] Pre-Certification Formon Pre-Certification Form [id number]#1 .00TIFF Normal [facility] RAD - CT Reporton 09-18-2023 RAD - CT Report [id number]#1 .00TIFF Normal [facility] Rad - Other Radiology Report on 09-18-2023 Rad - Other Radiology Report [id number]#1 [facility] 08-28-2023 Outside Records [id number]# [facility] C Urine[facility] 08-25-2023 Bacteria identified Cx [...] was performed at: [facility], [address] [place] [address], [address]- , , [facility] Comment on above: Performed By: #### 2 [id number] ####[address] [address] Lab - Other Lab Resultson Lab - Other Lab Results [id number]#1. 00OTGTIFF Normal [facility] Ambulatory Visit Summaryon 0 08-21-2023 Ambulatory Visit [...] urethral stricture (07/16/2019), BILATERAL MASTECTOMY WITH TISSUE YOUTH SPECIALIST INSERTION, bladder suspension, ESWL KIDNEY STONE X2, LEFT KNEE RECONSTRUCTIVE SURGERY, PARATHYROID GLAND EXCISION, Part of lobe of thyroid gland. What to do next Scheduled Follow-Up Appointments Monday. 2023 2:45 PM EDT With: Marshall RIZVI MD Where: [facility] [place] Normal [facility] HCG ( test) IA.diegoi d Ql (U)Ordered By: Jesús Andrew on 07-07-2023 HCG ( test) Ql (U) Negative [facility] HCG,Urineon 07-07-2023 Beta HCG ( test) Ql (U) Negative Normal [facility] Comment on above: Result Comment: PERF ORMED BY: [facility] [address] [place] [address] PATHOLOGIST ENERGY MANAGER GRACY BARRY M.D. Performed By: #### U HCG #### [facility] [id number] [facility] 07-07-2023 L Specimen: [id number] Received: 07/07/23 Status: SUBHASH Valdes Num: [id number] Spec Type: Surgical Subm Dr: Emy Crowe DO Tissues: A Uterus w/ or w/o tubes ovaries except neoplastic or prolap (CERVIX, MARIS TU Procedures: HE/12, Gross/Micro L5 Age/ Patient Sex Location Account Attending Physician Nicolette Evangelista 48/F DC [id number] Emy Crowe DO SPEC NUM: [id number] RECD: 07/07/23 STATUS: SUBHASH VALDES NUM: [id number] UMESH: 07/07/[address]: Emy Crowe DO ENTERED: 07/07/[address] [facility] DR: SPEC TYPE: Surgical DEPT: S ORDERED: [...] [id number] Received: 07/07/23 Status: SUBHASH Valdes Num: [id number] Spec Type: Surgical Subm Dr: Emy Crowe DO Tissues: A Uterus w/ or w/o tubes ovaries except neoplastic or prolap (CERVIX, MARIS TU Procedures: , Gross/Micro L5 -------- Patient: Jean CarlosNicolette J [id number] (Continued) -------- Specimen: [id number] Received: 07/07/23 (Continued) Gross Description (Continued) Signed (signature on file) Erin Cardenas MD 07/10/23 1302 -------- Specimen: [id number] Received: 07/07/23 Status: SUBHASH Valdes Num: [id number] Spec Type: Surgical Subm Dr: Emy Crowe DO Tissues: A Uterus w/ or w/o tubes ovaries except neoplastic or prolap (CERVIX, MARIS TU Procedures: , Gross/Micro L5 -------- Patient: Nicolette Evangelista [id number] (Continued) -------- Specimen: [id number] Received: 07/07/23 (Continued) [...] unilocular cyst filled with thin red-brown fluid. Electronics Specialist sections are submitted in 12 cassettes as follows: A1 - Posterior cul-de-sac serosa and sections of 2 largest intramural nodules A2 - Cervix (anterior and posterior) A3-A4 - Anterior endomyometrium with intramural nodules (largest with potential necrosis in A4 A5-A6 - Intramural nodules A7-A9 - Right adnexa with fimbria entirely submitted A10-A12 - Left adnexa with fimbria entirely submitted CPT Codes 70048 -------- -------- (more content not included)... Normal [facility] Lab - Other Lab Resultson Lab - Other Lab Results [id number]#1 .[facility] 07-07-2023 Outside Records [id number]#1 .[facility] Lab - Other Lab Resultson Lab - Other Lab Results [id number]# 1.[facility] Automated basophil %Ordered By: Emy Crowe on 06-22-2023 Basophils/100 WBC (Bld) 0.4 % Normal . [facility] Comment on above: Performed By: #### C BC #### [address] Automated basophil countOrde red By: Emy Crowe on 06-22-2023 Basophils (Bld) [#/Vol] 0.0 10*3/uL Normal 0.0-0.2 [facility] Comment on above: Result Comment: PERF ORMED BY: [place] [address] PATHOLOGIST ENERGY MANAGER GRACY BARRY M.D. Performed By: #### C BC #### [address] Automated blood monocyte cou ntOrdered By: Emy Crowe on 06-22-2023 Monocytes (Bld) [#/Vol] 0.5 10*3/uL Normal 0.0-0.8 [facility] Comment on above: Performed By: #### C BC #### [address] Automated eosinophil %Ordere d By: Emy Crowe on 06-22-2023 Eosinophils/100 WBC (Bld) 0.7 % Normal . [facility] Comment on above: Performed By: #### C BC #### [address] Automated eosinophil countOr dered By: Emy Crowe on 06-22-2023 Eosinophils (Bld) [#/Vol] 0.1 10*3/uL Normal 0.0-0.45 [facility] Comment on above: Performed By: #### C BC #### [address] Automated monocyte %Ordered By: Emy Crowe on 06-22-2023 Monocytes/100 WBC (Bld) 4.9 % Normal . [facility] Comment on above: Performed By: #### C BC #### [address] Automated neutrophil %Ordere d By: Emy Crowe on 06-22-2023 Neutrophils/100 WBC (Bld) 68.8 % Normal . [facility] Comment on above: Performed By: #### C BC #### [address] Complete Blood Count Auto Di ffon 06-22-2023 Mean Corpuscular HGB Conc 33.8 g/dL Normal 32.0-35.0 [facility] Comment on above: Performed By: #### C BC #### [address] NRBC% 0.0 /100{WBC} Normal 0-0.5 [facility] Comment on above: Performed By: #### C BC #### [address] Erythrocyte distribution wid th [Ratio] by Automated countOrdered By: Emy Crowe on 06-22-2023 Erythrocyte distribution width (RBC) [Ratio] 13.7 % Normal 11.9-15.3 [facility] Comment on above: Performed By: #### C BC #### [address] Erythrocytes [#/volume] in B lood by Automated countOrdered By: Emy Crowe on 06-22-2023 RBC (Bld) [#/Vol] 4.64 10*6/uL Normal 3.60-5.00 [facility] Comment on above: Performed By: #### C BC #### [address] Hematocrit [Volume Fraction] of Blood by Automated countOrdered By: Emy Crowe on 06-22-2023 Hematocrit (Bld) [Volume fraction] 41.9 % Normal 34.0-46.4 [facility] Comment on above: Performed By: #### C BC #### [address] Hemoglobin [Mass/volume] in BloodOrdered By: Emy Crowe on 06-22-2023 Hemoglobin (Bld) [Mass/Vol] 14.1 g/dL Normal 11.8-15.4 [facility] Comment on above: Performed By: #### C BC #### [address] Leukocytes [#/volume] correc tom for nucleated erythrocytes in Blood by Automated counOrdered By: Emy Crowe on 06-22-2023 WBC corrected for nucl RBC Auto (Bld) [#/Vol] 9.3 10*3/uL 3.8-11.6 [facility] Leukocytes [#/volume] in Blo od by Automated countOrdered By: Emy Crowe on 06-22-2023 WBC (Bld) [#/Vol] 9.3 10*3/uL Normal 3.8-11.6 [facility] Comment on above: Performed By: #### C BC #### [address] Lymphocytes [#/volume] in Bl ood by Automated countOrdered By: Emy Crowe on 06-22-2023 Lymphocytes (Bld) [#/Vol] 2.4 10*3/uL Normal 1.00-4.8 [facility] Comment on above: Performed By: #### C BC #### [address] Lymphocytes/100 leukocytes i n Blood by Automated countOrdered By: Emy Crowe on 06-22-2023 Lymphocytes/100 WBC (Bld) 25.2 % Normal . [facility] Comment on above: Performed By: #### C BC #### [address] MCH [Entitic mass] by Automa tom countOrdered By: Emy Crowe on 06-22-2023 MCH (RBC) [Entitic mass] 30.4 pg Normal 24.7-34.3 [facility] Comment on above: Performed By: #### C BC #### [address] MCHC Auto (RBC) [Mass/Vol]Or dered By: Emy Crowe on 06-22-2023 MCHC (RBC) [Mass/Vol] 33.8 g/dL 32.0-35.0 [facility] MCV [Entitic volume] by Auto mated countOrdered By: Emy Crowe on 06-22-2023 MCV (RBC) [Entitic vol] 90.2 fL Normal 80-100 [facility] Comment on above: Performed By: #### C BC #### [place] [address] [place] Neutrophils [#/volume] in Bl ood by Automated countOrdered By: Emy Crowe on 06-22-2023 Neutrophils (Bld) [#/Vol] 6.4 10*3/uL Normal 1.8-7.7 [facility] Comment on above: Performed By: #### C BC #### [address] Nucleated erythrocytes [Pres ence] in Blood by Automated countOrdered By: Emy Crowe on 06-22-2023 Nucleated RBC Auto Ql (Bld) 0.0 /100{WBC} 0-0.5 [facility] PST Type and Screenon 2023 ABO and Rh group Nom (Bld) Blood group B Rh(D) positive Normal [facility] Comment on above: Order Comment: Date of Surgery: [id number] Result Comment: PERF ORMED BY: [place] [address] PATHOLOGIST ENERGY MANAGER GRACY BARRY M.D. Platelet mean volume [Entiti c volume] in Blood by Automated countOrdered By: Emy Crowe on 06-22-2023 Platelet mean volume (Bld) [Entitic vol] 7.8 fL Normal 6.3-10.7 [facility] Comment on above: Performed By: #### C BC #### [place] [address] [place] Platelets [#/volume] in Bloo d by Automated countOrdered By: Emy Crowe on 06-22-2023 Platelets (Bld) [#/Vol] 283 10*3/uL Normal 150-450 [facility] Comment on above: Performed By: #### C BC #### [address] [place] [address] [facility] Pre-Certification Formon Pre-Certification Form [id number]#1 .00TIFF Normal [facility] Consent for Procedure/Surger yon 06-21-2023 Consent for Procedure/Surgery [id number]#1 .00TIFF Normal [facility] Urology Office/Clinic Noteon 06-20-2023 Urology Office/Clinic Note [...] urine The Urethra was dilated to: 20-30 Yemeni with sounds. Specimens Removed: None Removal: Cystoscope [...] JOSELYN Clark, URL In 4 months [address] [place] [address] Additional Instructions: Patient Education I, Ara Mabry [...] urethral s (more content not included)... Normal [facility] Comment on above: Result Comment: Elec tronically Signed By: Marshall RIZVI MD\.br\Date and Time Signed: 06/20/23 16:42 EST\.br\Electronically Co-Signed By: Ara Mabry\.br\Date and Time Co-Signed: 06/20/23 16:39 EST Insurance Correspondenceon 1 08-16-2022 Insurance Correspondence [id number]# 1.00TIFF Normal [facility] GLYCOHEMOGLOBIN A1Con 2022 ADA RECOMMENDATION SEE BELOW Normal [facility] Comment on above: Result Comment: ADA RECOMMENDED LIMIT 4.0 - 6.0 ADA THERAPEUTIC TARGET < 7.0 ACTION SUGGESTED > 7.0 Performed By: #### A 1C #### [facility] [address] [place] [address] Dr. Rosendo Wilson Glucose [Mass/Vol] 137 mg/dL Normal [facility] Comment on above: Performed By: #### A 1C #### [facility] [address] [address] [address] Rosendo Wilson HbA1c (Bld) [Mass fraction] 6.4 % Critically high 4.5-6.2 [facility] Comment on above: Performed By: #### A 1C #### [facility] [address] [address] [address] Rosendo Wilson LIPID PROFILEon 11-11-2022 CHOL-HDL RATIO NORM SEE BELOW Normal [facility] Comment on above: Result Comment: 3.3 - 4.4 LOW RISK 4.4 - 7.1 AVERAGE RISK 7.1 - 11.0 MODERATE RISK >11.0 HIGH RISK Performed By: #### T SHRFT4, LIPID, CMP #### [facility] [address] [address] [address] Rosendo Wilson Cholesterol [Mass/Vol] 200 mg/dL Normal <=200 [facility] Comment on above: Performed By: #### T SHRFT4, LIPID, CMP #### [facility] [address] [place] [address] Dr. Rosendo Wilson Cholesterol in HDL [Mass/Vol] 67 mg/dL Critically high 40-60 [facility] Comment on above: Performed By: #### T SHRFT4, LIPID, CMP #### [facility] [address] [address] [address] Rosendo Wilson Cholesterol in LDL [Mass/Vol] 122.0 mg/dL Normal [facility] Comment on above: Performed By: #### T SHRFT4, LIPID, CMP #### [facility] [address] [address] [address] Rosendo Wilson Cholesterol.total/Cho lesterol in HDL [Mass ratio] 3.0 {ratio} Normal [facility] Comment on above: Performed By: #### T SHRFT4, LIPID, CMP #### [facility] [address] [place] [address] Dr. Rosendo Wilson HDL NORMAL > or = 60 mg/dl - LO W CARDIOVASCULAR RISK <40 mg/dl - HIGH CARDIOVASCULAR RISK Normal [facility] Comment on above: Performed By: #### T SHRFT4, LIPID, CMP #### [facility] [address] [place] [address] Dr. Rosendo Wilson LDL CALC NORMAL SEE BELOW Normal [facility] Comment on above: Result Comment: <100 mg/dl OPTIMAL 100 - 129 mg/dl NEAR OR ABOVE OPTIMAL 130 - 159 mg/dl BORDERLINE HIGH 160 - 189 mg/dl HIGH >190 mg/dl VERY HIGH Performed By: #### T SHRFT4, LIPID, CMP #### [facility] [address] [address] [address] Rosendo Wilson Triglyceride [Mass/Vol] 55 mg/dL Normal <=150 [facility] Comment on above: Performed By: #### T SHRFT4, LIPID, CMP #### [facility] [address] [address] [address] Rosendo Wilson VLDL CALC 11.0 mg/dL Normal [facility] Comment on above: Performed By: #### T SHRFT4, LIPID, CMP #### [facility] [address] [address] [address] Rosendo Wilson PROF 14(COMP METB)on 023 Albumin [Mass/Vol] 3.3 g/dL Critically low 3.4-5.0 Th [facility] Comment on above: Performed By: #### T SHRFT4, LIPID, CMP #### [facility] [address] [address] [address] Rosendo Wilson Albumin/Globulin [Mass ratio] 0.8 {ratio} Normal [facility] Comment on above: Performed By: #### T SHRFT4, LIPID, CMP #### [facility] [address] [address] [address] Rosendo Wilson ALP [Catalytic activity/Vol] 91 U/L Normal 46-116 [facility] Comment on above: Performed By: #### T SHRFT4, LIPID, CMP #### [facility] [address] [address] [address] Rosendo Wilson ALT [Catalytic activity/Vol] 31 U/L Normal 14-59 [facility] Comment on above: Performed By: #### T SHRFT4, LIPID, CMP #### [facility] [address] [address] [address] Rosendo Wilson Anion gap [Moles/Vol] 11.3 mmol/L Normal [facility] Comment on above: Performed By: #### T SANJIV4, LIPID, CMP #### [facility] [address] [address] [address] Rosendo Wilson AST [Catalytic activity/Vol] 21 U/L Normal 15-37 [facility] Comment on above: Performed By: #### T SANJIV4, LIPID, CMP #### [facility] [address] [address] [address] Rosendo Wilson Bilirubin [Mass/Vol] 0.4 mg/dL Normal 0.2-1.0 [facility] Comment on above: Performed By: #### T SANJIV4, LIPID, CMP #### [facility] [address] [place] [address] Dr. Rosendo Wilson Calcium [Mass/Vol] 8.8 mg/dL Normal 8.5-10.1 [facility] Comment on above: Performed By: #### T SANJIV4, LIPID, CMP #### [facility] [address] [place] [address] Dr. Rosendo Wilson Chloride [Moles/Vol] 102 mmol/L Normal 98-107 [facility] Comment on above: Performed By: #### T SANJIV4, LIPID, CMP #### [facility] [address] [place] [address] Dr. Rosendo Wilson CO2 [Moles/Vol] 28.7 mmol/L Normal 21.0-32.0 [facility] Comment on above: Performed By: #### T SHRFT4, LIPID, CMP #### [facility] [address] [place] [address] Dr. Rosendo Wilson Creatinine [Mass/Vol] 0.83 mg/dL Normal 0.55-1.02 [facility] Comment on above: Performed By: #### T SHRFT4, LIPID, CMP #### [facility] [address] [place] [address] Dr. Rosendo Wilson EGFR-AF GREEK >60 Normal >=60 [facility] Comment on above: Performed By: #### T RISSAFT4, LIPID, CMP #### [facility] [address] [address] [address] Rosendo Wilson EGFR-NON AF GREEK >60 Normal >=60 [facility] Comment on above: Performed By: #### T SHRFT4, LIPID, CMP #### [facility] [address] [address] [address] Rosendo Wilson Globulin (S) [Mass/Vol] 4.3 g/dL Normal [facility] Comment on above: Performed By: #### T SHRFT4, LIPID, CMP #### [facility] [address] [place] [address] Dr. Rosendo Wilson Glucose [Mass/Vol] 114 mg/dL Critically high 74-106 [facility] Comment on above: Performed By: #### T SHRFT4, LIPID, CMP #### [facility] [address] [place] [address] Dr. Rosendo Wilson Potassium [Moles/Vol] 4.0 mmol/L Normal 3.5-5.1 [facility] Comment on above: Performed By: #### T SHRFT4, LIPID, CMP #### [facility] [address] [place] [address] Dr. Rosendo Wilson Protein [Mass/Vol] 7.6 g/dL Normal 6.4-8.2 [facility] Comment on above: Performed By: #### T SHRFT4, LIPID, CMP #### [facility] [address] [place] [address] Dr. Rosendo Wilson Sodium [Moles/Vol] 138 mmol/L Normal 136-145 [facility] Comment on above: Performed By: #### T SHRFT4, LIPID, CMP #### [facility] [address] [place] [address] Dr. Rosendo Wilson Urea nitrogen [Mass/Vol] 22.0 mg/dL Critically high 7.0-18.0 [facility] Comment on above: Performed By: #### T SHRFT4, LIPID, CMP #### [facility] [address] [place] [address] Dr. Rosendo Wilson Urea nitrogen/Creatinine [Mass ratio] 26.5 mg/mg Normal [facility] Comment on above: Performed By: #### T SHRFT4, LIPID, CMP #### [facility] [address] [place] [address] Dr. Rosendo Wilson TSH W/ REFLEX TO FT4on 11-11 TSH 3.281 uIU/mL Normal 0.358-3.740 [facility] Comment on above: Performed By: #### T SHRFT4, LIPID, CMP #### [facility] [address] [place] [address] Dr. Rosendo Wilson VITAMIN B12on 11-11-2022 Cobalamin (Vitamin B12) [Mass/Vol] 601.0 pg/mL Normal 193.0-986.0 [facility] Comment on above: Performed By: #### V ITAD, VITB12 #### [facility] [address] [place] [address] Dr. Rosendo Wilson VITAMIN D 25 OHon 11-11-2022 VIT D 25-OH 44.3 ng/mL Normal [facility] Comment on above: Performed By: #### V ITAD, VITB12 #### [facility] [address] [place] [address] Dr. Rosendo Wilson VIT D RANGES SEE BELOW Normal [facility] Comment on above: Result Comment: <20 ng/mL Vit D deficient 20 - <30 ng/mL Vit D insufficient 30 - 100 ng/mL Vit D sufficient >100 ng/mL Potential Toxicity Performed By: #### V ITAD, VITB12 #### [facility] [address] [place] [address] Dr. Rosendo Wilson HCG ( test) IAblake d Ql (U)Ordered By: WERNER MALIK on 07-29-2022 HCG ( test) Ql (U) Negative [facility] TESTOSTERONE, FREE,DIRECT, T Jairo 04-20-2022 Free Testosterone(Direct) 1.1 pg/mL Normal 0.0-4.2 [facility] Comment on above: Result Comment: Perf ormed at: BN Performed By: #### T ESTFRD #### [facility] [address] [address] [address] Rosendo Wilson Testosterone [Mass/Vol] 23 ng/dL Normal 4-50 [facility] Comment on above: Result Comment: Perf ormed at: CB Performed By: #### T ESTFRD #### [facility] [address] [place] [address] Dr. Rosendo Wilson INSULINon 04-18-2022 Insulin 16.4 uIU/mL Normal 2.6-24.9 [facility] Comment on above: Performed By: #### I NSULIN #### [facility] [address] [address] [address] Rosendo Wilson XR KUB 1 VIEWon [...] by: WERNER BREAUX Date: 2022-04-18 07:14 Normal [facility] Vital Signs Date Time Vital Sign Value Performing Clinician Facility 05-02-2024 15:24-0500 Body height 172.72 cm [facility] 05-02-2024 15:24-0500 Body mass index (BMI) [Ratio] 27 kg/m2 [facility] 05-02-2024 15:24-0500 Body weight 80.73 kg [facility] 05-02-2024 15:24-0500 Diastolic blood pressure 73 mm[Hg] [facility] 05-02-2024 15:24-0500 Heart rate 85 /min [facility] 05-02-2024 15:24-0500 Respiratory rate 18 /min [facility] 05-02-2024 15:24-0500 SaO2% (BldA) [Mass fraction] 95 % [facility] 05-02-2024 15:24-0500 Systolic blood pressure 109 mm[Hg] [facility] 04-04-2024 15:29-0400 Body height 172.7 cm Ambreen Dumont APRN-TEJAL Work Phone: [facility] 04-04-2024 15:29-0400 Body mass index (BMI) [Ratio] 26.94 kg/m2 Ambreen Dumont APRN-MECHANICAL TECHNICAL SERVICE SPECIALIST Work Phone: [facility] 04-04-2024 15:29-0400 Body temperature 97.2 [degF] Ambreen Dumont APRN-TEJAL Work Phone: [facility] 04-04-2024 15:29-0400 Body weight 80.38 kg Ambreen Dumont APRN-MECHANICAL TECHNICAL SERVICE SPECIALIST Work Phone: [facility] 04-04-2024 15:29-0400 Diastolic blood pressure 62 mm[Hg] Ambreen Dumont APRN-MECHANICAL TECHNICAL SERVICE SPECIALIST Work Phone: [facility] [email or web address] [facility] 04-04-2024 15:29-0400 Heart rate 85 /min Ambreen Dumont APRN-TEJAL Work Phone: [facility] [email or web address] [facility] 04-04-2024 15:29-0400 Respiratory rate 18 /min Ambreen Dumont APRN-MECHANICAL TECHNICAL SERVICE SPECIALIST Work Phone: [facility] [email or web address] [facility] 04-04-2024 15:29-0400 SaO2% (BldA) [Mass fraction] 97 % Ambreen Dumont APRN-MECHANICAL TECHNICAL SERVICE SPECIALIST Work Phone: [facility] 04-04-2024 15:29-0400 Systolic blood pressure 124 mm[Hg] Ambreen Dumont APRN-MECHANICAL TECHNICAL SERVICE SPECIALIST Work Phone: [facility] 03-07-2024 15:08-0400 Body height 172.72 cm [facility] 03-07-2024 15:08-0400 Body mass index (BMI) [Ratio] 26.9 kg/m2 [facility] 03-07-2024 15:08-0400 Body weight 80.45 kg [facility] 03-07-2024 15:08-0400 Diastolic blood pressure 76 mm[Hg] [facility] 03-07-2024 15:08-0400 Heart rate 92 /min [facility] 03-07-2024 15:08-0400 Respiratory rate 18 /min [facility] 03-07-2024 15:08-0400 SaO2% (BldA) [Mass fraction] 96 % [facility] 03-07-2024 15:08-0400 Systolic blood pressure 108 mm[Hg] [facility] 01-11-2024 14:41-0400 Body height 172.72 cm [facility] 01-11-2024 14:41-0400 Body mass index (BMI) [Ratio] 27.1 kg/m2 [facility] 01-11-2024 14:41-0400 Body weight 80.82 kg [facility] 01-11-2024 14:41-0400 Diastolic blood pressure 72 mm[Hg] [facility] 01-11-2024 14:41-0400 Heart rate 85 /min [facility] 01-11-2024 14:41-0400 Respiratory rate 18 /min [facility] 01-11-2024 14:41-0400 SaO2% (BldA) [Mass fraction] 95 % [facility] 01-11-2024 14:41-0400 Systolic blood pressure 105 mm[Hg] [facility] 11-21-2023 16:02-0400 Heart rate 98 /min [facility] 11-21-2023 15:32-0400 Body height 172.72 cm [facility] 11-21-2023 15:32-0400 Body mass index (BMI) [Ratio] 27.8 kg/m2 [facility] 11-21-2023 15:32-0400 Body weight 83.09 kg [facility] 11-21-2023 15:32-0400 Diastolic blood pressure 76 mm[Hg] [facility] 11-21-2023 15:32-0400 Respiratory rate 18 /min [facility] 11-21-2023 15:32-0400 SaO2% (BldA) [Mass fraction] 93 % [facility] 11-21-2023 15:32-0400 Systolic blood pressure 112 mm[Hg] [facility] 10-10-2023 15:42-0400 Body height 172.72 cm [facility] 10-10-2023 15:42-0400 Body mass index (BMI) [Ratio] 29.5 kg/m2 [facility] 10-10-2023 15:42-0400 Body weight 88.22 kg [facility] 10-10-2023 15:42-0400 Diastolic blood pressure 72 mm[Hg] [facility] 10-10-2023 15:42-0400 Heart rate 71 /min [facility] 10-10-2023 15:42-0400 Respiratory rate 18 /min [facility] 10-10-2023 15:42-0400 SaO2% (BldA) [Mass fraction] 98 % [facility] 10-10-2023 15:42-0400 Systolic blood pressure 108 mm[Hg] [facility] 08-08-2023 15:10-0500 Body height 172.72 cm DO Musa Evangelista Work Phone: [facility] 08-08-2023 15:10-0500 Body mass index (BMI) [Ratio] 28.1 kg/m2 DO Musa Evangelista Work Phone: [facility] 08-08-2023 15:10-0500 Body weight 83.91 kg DO Musa Evangelista Work Phone: [facility] 08-08-2023 15:10-0500 Diastolic blood pressure 69 mm[Hg] DO Musa Evangelista Work Phone: [facility] 08-08-2023 15:10-0500 Heart rate 96 /min DO Musa Evangelista Work Phone: [facility] 08-08-2023 15:10-0500 Respiratory rate 18 /min DO Musa Evangelista Work Phone: [facility] 08-08-2023 15:10-0500 SaO2% (BldA) [Mass fraction] 95 % DO Musa Evangelista Work Phone: [facility] 08-08-2023 15:10-0500 Systolic blood pressure 103 mm[Hg] DO Musa Evangelista Work Phone: [facility] 07-07-2023 15:51-0500 Body temperature 98 [degF] DO Musa Evangelista Work Phone: [facility] 07-07-2023 15:51-0500 Diastolic blood pressure 58 mm[Hg] DO Musa Evangelista Work Phone: [facility] 07-07-2023 15:51-0500 Heart rate 86 /min DO Musa Evangelista Work Phone: [facility] 07-07-2023 15:51-0500 Respiratory rate 20 /min DO Musa Evangelista Work Phone: [facility] 07-07-2023 15:51-0500 SaO2% (BldA) [Mass fraction] 93 % DO Musa Evangelista Work Phone: [facility] 07-07-2023 15:51-0500 Systolic blood pressure 99 mm[Hg] DO Musa Evangelista Work Phone: [facility] 07-07-2023 12:05-0500 Inhaled oxygen flow rate 2 L/min DO Musa Evangelista Work Phone: [facility] 07-07-2023 07:26-0500 Body height 172.72 cm DO Musa Evangelista Work Phone: [facility] 07-07-2023 07:26-0500 Body mass index (BMI) [Ratio] 28.8 kg/m2 DO Musa Evangelista Work Phone: [facility] 07-07-2023 07:26-0500 Body weight 85.8 kg DO Musa Evangelista Work Phone: [facility] 06-13-2023 09:45-0500 Body height 172.72 cm Viktoria Scally Other [facility] 06-13-2023 09:45-0500 Body mass index (BMI) [Ratio] 28.4 kg/m2 Viktoria Scally Other [employer] Other 06-13-2023 09:45-0500 Body weight 84.73 kg Viktoria Scally Other [facility] 06-13-2023 09:45-0500 Diastolic blood pressure 70 mm[Hg] Viktoria Scally Other [facility] 06-13-2023 09:45-0500 Respiratory rate 18 /min Viktoria Scally Other [employer] Other 06-13-2023 09:45-0500 SaO2% (BldA) [Mass fraction] 95 % Viktoria Scally Other [employer] Other 06-13-2023 09:45-0500 Systolic blood pressure 101 mm[Hg] Viktoria Scally Other [facility] 04-17-2023 15:30-0400 Body height 172.72 cm Viktoria Scally Other [employer] Other 04-17-2023 15:30-0400 Body mass index (BMI) [Ratio] 29.4 kg/m2 Viktoria Scally Other [employer] Other 04-17-2023 15:30-0400 Body weight 87.73 kg Viktoria Scally Other [employer] Other 04-17-2023 15:30-0400 Diastolic blood pressure 78 mm[Hg] Viktoria Scally Other [employer] Other 04-17-2023 15:30-0400 Respiratory rate 18 /min Viktoria Scally Other [employer] Other 04-17-2023 15:30-0400 SaO2% (BldA) [Mass fraction] 95 % Viktoria Scally Other [employer] Other 04-17-2023 15:30-0400 Systolic blood pressure 112 mm[Hg] Viktoria Scally Other [employer] Other 02-15-2023 15:00-0400 Body height 172.72 cm Viktoria Scally Other [employer] Other 02-15-2023 15:00-0400 Body mass index (BMI) [Ratio] 30.71 kg/m2 Viktoria Scally Other [employer] Other 02-15-2023 15:00-0400 Body weight 91.63 kg Viktoria Scally Other [employer] Other 02-15-2023 15:00-0400 Diastolic blood pressure 76 mm[Hg] Viktoria Scally Other [employer] Other 02-15-2023 15:00-0400 Respiratory rate 18 /min Viktoria Scally Other [employer] Other 02-15-2023 15:00-0400 SaO2% (BldA) [Mass fraction] 94 % Viktoria Scally Other [employer] Other 02-15-2023 15:00-0400 Systolic blood pressure 106 mm[Hg] Viktoria Scally Other [employer] Other 02-13-2023 15:15-0400 Body height 172.72 cm Sandra Fitt Other [employer] Other 02-13-2023 15:15-0400 Body mass index (BMI) [Ratio] 30.76 kg/m2 Sandra Fitt Other [employer] Other 02-13-2023 15:15-0400 Body weight 91.76 kg Sandra Fitt Other [employer] Other 12-27-2022 15:00-0400 Body height 172.72 cm Viktoria Scally Other [employer] Other 12-27-2022 15:00-0400 Body mass index (BMI) [Ratio] 30.91 kg/m2 Viktoria Scally Other [employer] Other 12-27-2022 15:00-0400 Body weight 92.22 kg Viktoria Scally Other [employer] Other 12-27-2022 15:00-0400 Diastolic blood pressure 80 mm[Hg] Viktoria Scally Other [employer] Other 12-27-2022 15:00-0400 Respiratory rate 18 /min Viktoria Scally Other [employer] Other 12-27-2022 15:00-0400 SaO2% (BldA) [Mass fraction] 95 % Viktoria Scally Other [employer] Other 12-27-2022 15:00-0400 Systolic blood pressure 118 mm[Hg] Viktoria [place] Other [facility] [employer] Other 07-29-2022 11:13-0500 Diastolic blood pressure 68 mm[Hg] DO Musa Evangelista Work Phone: [facility] 07-29-2022 11:13-0500 Heart rate 76 /min DO Musa Evangelista Work Phone: [facility] 07-29-2022 11:13-0500 Respiratory rate 16 /min DO Musa Evangelista Work Phone: [facility] 07-29-2022 11:13-0500 SaO2% (BldA) [Mass fraction] 93 % DO Musa Evangelista Work Phone: [facility] 07-29-2022 11:13-0500 Systolic blood pressure 106 mm[Hg] DO Musa Evangelista Work Phone: [facility] 07-29-2022 10:17-0500 Body height 172.72 cm DO Musa Evangelista Work Phone: [facility] 07-29-2022 10:17-0500 Body mass index (BMI) [Ratio] 27.4 kg/m2 DO Musa Evangelista Work Phone: [facility] 07-29-2022 10:17-0500 Body weight 82 kg DO Musa Evangelista Work Phone: [facility] 07-29-2022 08:56-0500 Body temperature 98.3 [degF] DO Musa Evangelista Work Phone: [facility] 04-27-2022 15:11-0500 Blood Pressure Location JOSELYN NESBITT [facility] 04-27-2022 15:11-0500 Diastolic blood pressure 90 mm[Hg] JOSELYN NESBITT [facility] 04-27-2022 15:11-0500 Heart rate 72 /min JOSELYN NESBITT [facility] 04-27-2022 15:11-0500 Systolic blood pressure 135 mm[Hg] JOSELYN NESBITT [facility] Encounters Encounter Date Encounter Type Care Provider Facility Start: 05-23-2024 ambulatory JOSELYN Eduardo NESBITT Facili ty:[facility] [place] Start: 05-02-2024 End: 05-02-2024 ambulatory [facility] Work Phone: Start: 05-02-2024 End: 05-02-2024 Patient encounter procedure [facility] Phys[facility] Work Phone: Start: 04-04-2024 End: 04-04-2024 Patient encounter procedure Ambreen Dumont APRN-MECHANICAL TECHNICAL SERVICE SPECIALIST Work Phone: [employer] Start: 04-04-2024 End: 04-04-2024 Periodic preventive med est patient 40-64yrs Ambreen Dumont APRN-MECHANICAL TECHNICAL SERVICE SPECIALIST Work Phone: [facility] Comment on above: Annual physical exam (Primary Dx); Blood tests for routine general physical examination Start: 04-04-2024 End: 04-04-2024 Physical examination Ambreen Dumont APRN-MECHANICAL TECHNICAL SERVICE SPECIALIST Work Phone: [employer] Work Phone: Start: 03-07-2024 End: 03-07-2024 ambulatory [facility] Work Phone: Start: 03-07-2024 End: 03-07-2024 Patient encounter procedure [facility] Physician [facility] Work Phone: Start: 01-11-2024 End: 01-11-2024 ambulatory [facility] Work Phone: Start: 01-11-2024 End: 01-11-2024 Patient encounter procedure [facility] Phys[facility] Work Phone: Start: 11-21-2023 End: 11-21-2023 ambulatory [facility] Work Phone: Start: 11-21-2023 End: 11-21-2023 Patient encounter procedure [facility] Work Phone: Start: 11-07-2023 End: 11-07-2023 Lab Drop off JOSELYN NESBITT [facility] Start: 11-07-2023 End: 11-07-2023 ambulatory JOSELYN NESBITT Facility:[facility] Start: 11-07-2023 End: 11-07-2023 Patient encounter procedure JOSELYN NESBITT [facility] Start: 10-23-2023 ambulatory Marshall Trotteri ty:[facility] Start: 10-10-2023 End: 10-10-2023 ambulatory [facility] Work Phone: Start: 10-10-2023 End: 10-10-2023 Patient encounter procedure [facility] Work Phone: Start: 09-26-2023 End: 09-26-2023 Lab Drop off Marshall RIZVI [facility] Start: 09-26-2023 End: 09-26-2023 ambulatory Marshall RIZVI Facility:[facility] Start: 09-26-2023 End: 09-26-2023 Patient encounter procedure Marshall RIZVI [facility] Start: 08-22-2023 End: 08-22-2023 ambulatory Marshall RIZVI Facility:[facility] Start: 08-21-2023 End: 08-21-2023 ambulatory Marshall Gallito ISAIAS Facility:[facility] Start: 08-21-2023 End: 08-21-2023 Patient encounter procedure Marshall Gallito [facility] Start: 08-15-2023 ambulatory JOSELNY NESBITT Facili ty:[facility] [place] Start: 08-08-2023 End: 08-08-2023 ambulatory DO Musa Evangelista Work Phone: [facility] Work Phone: Start: 08-08-2023 End: 08-08-2023 Patient encounter procedure DO Musa Evangelista Work Phone: [facility] Work Phone: Start: 08-04-2023 End: 08-04-2023 ambulatory EMY Diaz ELIE Not Available Start: 07-21-2023 End: 07-21-2023 ambulatory Sandra Issamatias Other [employer] Other Start: 07-21-2023 Telephone encounter Sandra Albarran [facility] Start: 07-17-2023 End: 07-17-2023 ambulatory Sandra Albarran Other [employer] Other Start: 07-17-2023 Telephone encounter Sandra Albarran [facility] Start: 07-07-2023 End: 07-07-2023 Admission to same day surgery center DO Musa Evangelista Work Phone: [facility] [employer] Start: 07-07-2023 End: 07-07-2023 ambulatory DO Musa Evangelista Work Phone: [facility] Work Phone: Start: 06-22-2023 End: 06-22-2023 Patient encounter procedure DO Musa Evangelista Work Phone: [facility] Work Phone: Start: 06-22-2023 End: 06-22-2023 ambulatory DO Musa Evangelista Work Phone: [facility] Work Phone: Start: 06-20-2023 End: 06-20-2023 ambulatory Marshall RIZVI Facility: [place] Start: 06-20-2023 End: 06-20-2023 Patient encounter procedure Marshall Gallito ISAIAS [facility] [place] Start: 06-13-2023 (FCCCWMNF/U) Weight Management f/u Viktoria Birmingham [facility] Start: 06-13-2023 End: 06-13-2023 ambulatory Viktoria Clark [facility] [employer] Other Start: 06-13-2023 Registered Recurring DO Musa Evangelista Work Phone: [facility] Work Phone: Start: 06-13-2023 End: 06-13-2023 Patient encounter procedure DO Musa Evangelista Work Phone: [facility] Work Phone: Start: 05-17-2023 End: 05-17-2023 ambulatory EMY FLORESI Not Available Start: 04-17-2023 (FCCWMNF/U) Weight Management f/u Viktoria Scalmatt [facility] Start: 04-17-2023 End: 04-17-2023 ambulatory Viktoria [place] Other [employer] Other Start: 04-17-2023 End: 04-17-2023 Patient encounter procedure DO Musa Evangelista Work Phone: [facility] Work Phone: Start: 02-15-2023 [facility] Weight Management f/u Viktoria Aditily [facility] Start: 02-15-2023 End: 02-15-2023 ambulatory Viktoria Aditily Other [employer] Other Start: 02-13-2023 [facility] WMN Init ial Provider Sandra Albarran [facility] Start: 02-13-2023 End: 02-13-2023 ambulatory Sandra Albarran Other [employer] Other Start: 01-25-2023 End: 01-25-2023 ambulatory Viktoria Linda Other [employer] Other Start: 01-25-2023 Telephone encounter Viktoria Aditily [facility] Start: 12-27-2022 [facility] Weight Management f/u Viktoria Aditily [facility] Start: 12-27-2022 End: 12-27-2022 ambulatory Viktoria Aditily Other [employer] Other Start: 12-15-2022 End: 12-15-2022 ambulatory Viktoira Aditily Other [employer] Other Start: 12-15-2022 Telephone encounter Viktoria Aditily [facility] Start: 11-11-2022 End: 11-12-2022 ambulatory VIKTORIA ADITILY Facility: Start: 07-29-2022 End: 07-29-2022 Admission to same day surgery center DO Musa Evangelista Work Phone: [facility] [employer] Start: 07-29-2022 End: 07-29-2022 ambulatory DO Musa Evangelista Work Phone: [facility] Work Phone: Start: 04-27-2022 End: 04-27-2022 Lab Drop off JOSELYN NESBITT [facility] Start: 04-27-2022 End: 04-27-2022 Patient encounter procedure JOSELYN NESBITT [facility] [place] Start: 04-16-2022 End: 04-17-[address] MUSA EVANGELISTA Facility:[facility] Start: 12-30-[address] MUSA EVANGELISTA Facil ity:[facility] Procedures Date Procedure Procedure Detail Performing Clinician Start: 04-04-2024 Adult depression scr eening assessment Ambreen Dumont VENTURE CAPITALIST-MECHANICAL TECHNICAL SERVICE SPECIALIST Work Phone: Start: 07-07-2023 Total hysterectomy v ia vaginal approach DO Musa Evangelista Work Phone: Start: 07-07-2023 Hysterectomy JOSELYN JEAN Start: 06-22-2023 Antibody screen Viktoria [place] Comment on above: Order Comment: Date of Surgery: [id number] Result Comment: PERF ORMED BY: [facility] [address] [place] [address] PATHOLOGIST ENERGY MANAGER GRACY BARRY M.D. Start: 06-20-2023 Cystourethroscopy wi th dilation of urethral stricture Marshall RIZVI Start: 07-29-2022 Hysteroscopy DO Musa Evangelista Work Phone: Start: 07-16-2019 Cystoscopy JOSELYN JEAN Start: 07-16-2019 Cystourethroscopy wi th dilation of urethral stricture JOSELYN NESBITT BILATERAL MASTECTOMY WITH TISSUE YOUTH SPECIALIST INSERTION JOSELYN NESBITT bladder suspension 1 JOVITA NESBITT Comment on above: May 20 2011 ESWL KIDNEY STONE X2 JOVITA NESBITT LEFT KNEE RECONSTRUC TIVE SURGERY JOSELYN NESBITT PARATHYROID GLAND EXCISION J JANNETTE NESBITT Part of lobe of thyr oid gland (body structure) JOSELYN NESBITT Plan of Treatment Date Care Activity Detail Author Start: 04-08-2025 End: 04-08-2025 Patient encounter procedure 04/08/2025 3:20 PM EDT Office Visit [facility] [address] [place] [address] Ambreen Dumont, VENTURE CAPITALIST-MECHANICAL TECHNICAL SERVICE SPECIALIST [address] [place] [address] [facility] Start: 04-04-2025 Adult BMI Screening Adult BMI Screen ing [facility] Start: 04-04-2025 Depression Screening Depression Scre ening [facility] Start: 04-04-2025 Tobacco Screening Tobacco Screening [facility] Start: 11-28-2024 Adult BMI Follow Up Plan Adult BMI Follow Up Plan [facility] Start: 2024 Administration of varicella zoster vaccine Zoster (Shingles) Vaccine (1 of 2) [facility] Start: 02-18-2024 COVID-19 Vaccine ( season) COVID-19 Vaccine ( season) [facility] Start: 02-18-2024 Influenza vaccination Influenza Vacc ine [facility] Start: 07-07-2023 Hospital admission [facility] Start: 07-07-2023 [facility] Start: 07-29-2022 End: 07-29-2022 [facility] Start: 1995 Screening for malign ant neoplasm of cervix Pap Smear [facility] Start: 1993 DTaP,Tdap and Td Vaccines (1 - Tdap) DTaP,Tdap and Td Vaccines (1 - Tdap) [facility] End: 04-04-2025 CBC W Auto Differential panel - Blood CBC auto differential Lab Routine Blood tests for routine general physical examination 1 Occurrences starting 04/04/2024 until 04/04/2025 [facility] Comment on above: 1 Occurrences starti ng 04/04/2024 until 04/04/2025 End: 04-04-2025 Comprehensive metabolic 2000 panel - Serum or Plasma Comprehensive metabolic panel Lab Routine Blood tests for routine general physical examination 1 Occurrences starting 04/04/2024 until 04/04/2025 [employer] Work Phone: Comment on above: 1 Occurrences starti ng 04/04/2024 until 04/04/2025 End: 04-04-2025 Hemoglobin A1c/Hemoglobin.total in Blood Hemoglobin A1c Lab Routine Blood tests for routine general physical examination 1 Occurrences starting 04/04/2024 until 04/04/2025 [facility] Comment on above: 1 Occurrences starti ng 04/04/2024 until 04/04/2025 End: 04-04-2025 Lipid 1996 panel - Serum or Plasma Lipid profile Lab Routine Blood tests for routine general physical examination 1 Occurrences starting 04/04/2024 until 04/04/2025 [facility] Comment on above: 1 Occurrences starti ng 04/04/2024 until 04/04/2025 Patient referral [facility] Work Phone: End: 04-04-2025 Thyrotropin [Units/volume] in Serum or Plasma TSH Lab Routine Blood tests for routine general physical examination 1 Occurrences starting 04/04/2024 until 04/04/2025 [facility] Comment on above: 1 Occurrences starti ng 04/04/2024 until 04/04/2025 [facility] Immunizations Immunization Date Immunization Notes Care Provider Fa cililuis f 10-19-2020 COVID-19 mRNAJocelynn (Pfizer) DO Musa Evangelista Work Phone: [facility] 10-08-2020 SARS-CoV-2 (COVID-19 ) mRNA BNT-162b2 fredx JOSELYN NESBITT [facility] 09-21-2020 COVID-19 mRNA, Comirnatjuly (Pfizer) DO Musa Evangelista Work Phone: [facility] 09-17-2020 SARS-CoV-2 (COVID-19 ) mRNA BNT-162b2 vax JOSELYN NESBITT [facility] 03-04-2020 influenza virus vaccine, unspecified formulation JOSELYN NESBITT [facility] 03-04-2020 influenza, injectabl e, quadrivalent, preservative free Ambreen Dumont VENTURE CAPITALIST-MECHANICAL TECHNICAL SERVICE SPECIALIST Work Phone: [facility] [email or web address] [facility] 02-19-2020 influenza virus vaccine, unspecified formulation JOSELYN NESBITT [facility] 03-19-2019 influenza virus vaccine, live, attenuated, for intranasal use JOSELYN NESBITT [facility] 03-19-2019 influenza virus vaccine, unspecified formulation JOSELYN NESBITT [facility] Comment on above: Result Comment: 2021: PATIENT RECIEVED AT WORK 03-19-2019 influenza, injectabl e, quadrivalent, contains preservative Ambreen Dumont VENTURE CAPITALIST-MECHANICAL TECHNICAL SERVICE SPECIALIST Work Phone: [facility] Payers Date Payer Category Payer Managed Care Other (unspecified) [employer] [id number] 1974 Unknown [id number] 2.16.840.1.822586.3.579. 2.593 1974 Unknown [id number] 2.16.840.1.369376.3.579. 2.593 1974 Unknown [id number] 2.16.840.1.150959.3.579. 2.593 1974 Unknown [id number] 2.16.840.1.680334.3.579. 2.593 1974 Unknown [id number] 2.16.840.1.174794.3.579. 2.1259 1974 Unknown [id number] 2.16.840.1.129797.3.579. 2.1259 1974 Unknown [id number] 2.16.840.1.107907.3.579. 2.727 1974 Unknown [id number] 2.16.840.1.249264.3.579. 2.727 1974 Unknown [id number] 2.16.840.1.409652.3.579. 2.727 1974 Unknown [id number] 2.16.840.1.690530.3.579. 2.727 1974 Unknown [id number] 2.16.840.1.900159.3.579. 2.727 1974 Unknown [id number] 2.16.840.1.418601.3.579. 2.727 1974 Unknown [id number] 2.16.840.1.802118.3.579. 2.727 1974 Unknown [id number] 2.16.840.1.815415.3.579. 2.727 1974 Unknown [id number] 2.16.840.1.365352.3.579. 2.727 1974 Unknown [id number] 2.16.840.1.904708.3.579. 2.727 1974 Unknown [id number] 2.16.840.1.763489.3.579. 2.727 1974 Unknown [id number] 2.16.840.1.419637.3.579. 2.727 1959 Self-pay [id number] 1960 Unknown [id number] 1959 Unknown [id number] Unknown [id number] 2.16.840.1.827132.3.579. 2.531 Unknown [id number] 2.16.840.1.324637.3.579. 2.531 Unknown [id number] 2..840.1.228030.3.579. 2.531 Social History Date Type Detail Facility Tobacco smoking stat [facility] Unknown if ever smoked [facility] Start: 1975 Sex Assigned At Female F [facility] Start: 04-24-2020 End: 11-29-2023 Tobacco smoking status Never smoked tobacco (finding) [facility] Tobacco smoking status Never [facility] Start: 04-04-2024 Sex Assigned At Female F [facility] Start: 06-22-2023 End: 10-10-2023 Tobacco smoking status NHIS Ex-smoker (finding) [facility] Start: 11-29-2023 Tobacco use and exposure Smokeless tobacco non-user [facility] Start: 04-04-2024 Alcoholic beverage intake Ex-drinker (finding) [facility] Start: 04-04-2024 History of Social function [facility] Start: 04-04-2024 Alcohol Comment rare [facility] Start: 1975 Sex assigned at Not on file P [facility] Start: 11-17-2023 End: 05-02-2024 Sex Female (finding) [employer] [facility] Procedure Code Equipment Code Equipment Origin al Text Equipment Identifier Dates Pen Bard 32G X 4 MM Start: 02-15-2023 Goals Date Patient Goal Desired Activity /State Functional Status Date Assessment Result Facility 11-07-2023 Functional Status N/A [facility] 07-07-2023 Functional status Patient at Baseline [facility] Work Phone: 06-20-2023 Functional Status N/A [facility] [place] 04-27-2022 Functional Status N/A [facility] Mental Status Date Assessment Result Facility 07-07-2023 Cognitive function Cognitive Sta tus Patient at Baseline [facility] Work Phone: Clinical Notes 04-27-2022 to 05-06-2024 JEFF Porras - 04/04/2024 3:20 PM EDT Note Date & Type Note Facility 05-06-2024 Note - [facility]: [facility] ([facility] To: Celia Eason CNP; Sent: 05/06/2024 08:26:34 EST Subject: FW: Medication Management Due Date/Time: 05/06/2024 09:00:00 EST Caller Name: NICOLETTE EVANGELISTA; Caller Number: , last visit: 11-16-22 next visit: none Patient matched by Jennifer Nick MA on 05/06/2024 08:24:53 EST From: [facility] To: Celia Eason CNP Sent: May 04, 2024 8:00:42 AM DIRECTORY ASSISTANCE OPERATOR Subject: Medication Management Due: May 05, 2024 1:09:30 AM DIRECTORY ASSISTANCE OPERATOR On Hold Pending Signature Dispensed Drug: atorvastatin (atorvastatin 10 mg oral tablet), TAKE 1 TABLET BY MOUTH DAILY Quantity: 90 tab(s) Days Supply: 90 Refills: 0 Substitutions Allowed Notes from Pharmacy: From: Celia Eason APRN, CNP To: [facility] Sent: 05/06/2024 09:32:22 EST Subject: FW: Medication Management Submitted: Complete:atorvastatin (atorvastatin 10 mg oral tablet) Signed by Celia Eason APRN, CNP 05/06/2024 09:32:00 EST Approved with modifications: atorvastatin (ATORVASTATIN 10MG TABLETS) TAKE 1 TABLET BY MOUTH DAILY Qty: 90 tab(s) Days Supply: 90 Refills: 1 Substitutions Allowed Route To Pharmacy - [facility] 04-04-2024 History of Presen t illness Narrative Images from the original note were not included. [address] [address] SUBJECTIVE: Patient ID: Nicolette Evangelista is a 49 y.o. female. Chief Complaint Patient presents with Annual Exam Presents for annual physical. She is . Works full-time at [employer] She does not smoke or consume alcohol. The following portions of the patient's history were reviewed and updated as appropriate: allergies, current medications, past family history, past medical history, past social history, past surgical history and problem list. Past Surgical History: Procedure Laterality Date BREAST SURGERY HYSTERECTOMY THYROIDECTOMY partial TONSILLECTOMY Past Medical History: Diagnosis Date Breast cancer ([facility]) double mastectomy Chronic UTI Disease of thyroid gland Visual impairment Immunization History Administered Date(s) Administered COVID-19, mRNA, LNP-S, PF, 30mcg/0.3mL Dose 09/17/2020, 10/08/2020 REVIEW OF SYSTEMS: Review of Systems Constitutional: Negative for chills and fever. HENT: Negative. Eyes: Negative for visual disturbance. Respiratory: Negative for chest tightness and shortness of breath. Cardiovascular: Negative for chest pain and palpitations. Gastrointestinal: Negative. Endocrine: Negative. Genitourinary: Negative for menstrual problem and pelvic pain. Musculoskeletal: Negative. Skin: Negative. Allergic/Immunologic: Negative. Neurological: Negative for syncope and facial asymmetry. Hematological: Does not bruise/bleed easily. Psychiatric/Behavioral: Negative. PHYSICAL EXAMINATION: Vitals: 04/04/24 1529 BP: 124/62 BP Site: Left Arm BP Postition: Sitting Pulse: 85 Resp: 18 Temp: 36.2 C (97.2 F) TempSrc: Temporal SpO2: 97% Weight: 80.4 kg (177 lb 3.2 oz) Height: 172.7 cm (5' 8 ) Patient noted to have elevated BMI and the following intervention(s) were applied: encouragement to exercise. Physical Exam Vitals and nursing note reviewed. Constitutional: General: She is not in acute distress. Appearance: She is well-developed. She is not diaphoretic. HENT: Head: Normocephalic and atraumatic. Right Ear: Tympanic membrane and external ear normal. Left Ear: Tympanic membrane and external ear normal. Nose: Nose normal. Mouth/Throat: Mouth: Mucous membranes are moist. Pharynx: No oropharyngeal exudate. Eyes: General: Right eye: No discharge. Left eye: No discharge. Conjunctiva/sclera: Conjunctivae normal. Pupils: Pupils are equal, round, and reactive to light. Neck: Thyroid: No thyromegaly. Vascular: No JVD. Cardiovascular: Rate and Rhythm: Normal rate and regular rhythm. Heart sounds: Normal heart sounds. No murmur heard. No friction rub. No gallop. Pulmonary: Effort: Pulmonary effort is normal. Breath sounds: Normal breath sounds. Abdominal: General: Bowel sounds are normal. There is no distension. Palpations: Abdomen is soft. There is no mass. Tenderness: There is no abdominal tenderness. Musculoskeletal: General: Normal range of motion. Cervical back: Normal range of motion and neck supple. Lymphadenopathy: Cervical: No cervical adenopathy. Skin: General: Skin is warm and dry. Capillary Refill: Capillary refill takes less than 2 seconds. Neurological: Mental Status: She is alert and oriented to person, place, and time. Deep Tendon Reflexes: Reflexes are normal and symmetric. Psychiatric: Mood and Affect: Mood normal. Behavior: Behavior normal. Thought Content: Thought content normal. Judgment: Judgment normal. ASSESSMENT/PLAN: Nicolette was seen today for annual exam. Diagnoses and all orders for this visit: Annual physical exam Blood tests for routine general physical examination - Comprehensive metabolic panel; Future - CBC auto differential; Future - Lipid profile; Future - Hemoglobin A1c; Future - TSH; Future Colonoscopy screening discussed today. Risk and benefits of procedure explained. Patient had colonoscopy within the past 2 years. Body mass index is 26.94 kg/m . Patient noted to have elevated BMI and the following intervention(s) were applied: Discussed current weight today. Consider healthy food choices, portion control. Avoid sugary beverages and high concentrated sweets. Routine exercise regimen encouraged. She is currently taking metformin and phentermine for weight loss. Is exercising. Has lost 6 pounds since November. Recommend influenza, COVID -19 booster, and shingles vaccination. May obtain from pharmacy of her choice. Labs drawn in office today [facility] is located in [place]. States she had SP[facility] June 2023. ALL QUESTIONS ANSWERED Total time spent was 25 minutes: Preparing to see the patient (e.g., review of tests) Obtaining and/or reviewing separately obtained history Performing a medically appropriate examination and/or evaluation Counseling and educating the patient/family/caregiver Ordering medications, tests, or procedures Follow-up: Annual JEFF Porras 04/04/24 1559 documented in this encounter [facility] 03-07-2024 Evaluation note Diagnosis Onset Date Resolution BMI 29.0-29.9,adult acute 2023 3:06pm Family history of diabetes mellitus (DM) acute March 07, 2024 3:06pm Hyperlipemia acute March 072023 3:06pm Hypothyroidism acute March 07, 2024 3:06pm Obesity acute February 3:06pm Prediabetes acute February 3:06pm Vitamin B 12 deficiency acute S epte2023 3:06pm Vitamin D deficiency acute Feb 3:06pm BMI 29.0-29.9,adult acute Novem 2023 3:22pm Family history of diabetes mellitus (DM) acute May 02, 2024 3:22pm Hyperlipemia acute April 3:22pm Hypothyroidism acute April 192023 3:22pm Obesity acute May 02, 2024 3:22pm Prediabetes acute April 3:22pm Vitamin B 12 deficiency acute N ovember 2023 3:22pm Vitamin D deficiency acute Nove mber 2023 3:22pm [facility] Work Phone: [phone]) 822-980908-27-2024 Note From: Jennifer Nick MA ([facility] ([facility])) To: Celia Eason CNP; Sent: 02/13/2024 13:30:59 EDT Subject: FW: Medication Management Due Date/Time: 02/14/2024 09:00:00 EDT Caller Name: NICOLETTE EVANGELISTA; Caller Number: Christine , [phone] last visit: 11-16-22 next visit: none Patient matched by Jennifer Nick MA on 02/13/2024 13:28:22 EDT From: [facility] To: Celia Eason CNP Sent: February 13, 2024 8:00:55 AM CDT Subject: Medication Management Due: February 14, 2024 12:11:14 AM CDT On Hold Pending Signature Dispensed Drug: atorvastatin (atorvastatin 10 mg oral tablet), TAKE 1 TABLET BY MOUTH DAILY Quantity: 90 tab(s) Days Supply: 90 Refills: 0 Substitutions Allowed Notes from Pharmacy: From: Celia Eason APRN, CNP To: [facility] ([facility]); Sent: 02/13/2024 15:26:09 EDT Subject: RE: Medication Management Caller Name: NICOLETTE EVANGELISTA; Caller Number: Christine , M she is due for appt From: Celia Esaon APRN, CNP To: [facility] Sent: 02/13/2024 15:28:32 EDT Subject: FW: Medication Management Submitted: Complete:atorvastatin (atorvastatin 10 mg oral tablet) Signed by Celia Eason APRN, CNP 02/13/2024 15:28:00 EDT Approved with modifications: atorvastatin (ATORVASTATIN 10MG TABLETS) TAKE 1 TABLET BY MOUTH DAILY Qty: 90 tab(s) Days Supply: 90 Refills: 0 Substitutions Allowed Route To Pharmacy - [facility] patient notified and has found a new family doctor in [place], [place]. She will have their office prescribe going forward. Medical record information given to patient for her records to be transferred. From: Jennifer Nick MA ([facility] ([facility])) To: Celia Eason CNP; Sent: 02/13/2024 16:05:57 EDT Subject: RE: Medication Management Caller Name: NICOLETTE EVANGELISTA; Caller Number: Christine , M [phone] Note From: Jennifer Nick MA ([facility] ([facility])) To: Musa Evangelista DO; Sent: 12/08/2023 09:44:49 EDT Subject: FW: Medication Management Due Date/Time: 12/09/2023 09:00:00 EDT Caller Name: NICOLETTE EVANGELISTA; Caller Number: , Sangeeta last visit: 11-16-22 next visit: none From: [facility] ([facility]) [facility] To: Celia Eason CNP Sent: December 08, 2023 8:00:59 AM CDT Subject: Medication Management Due: December 09, 2023 12:08:31 AM CDT On Hold Pending Signature Dispensed Drug: sertraline (sertraline 100 mg oral tablet), TAKE 1 TABLET BY MOUTH DAILY Quantity: 90 tab(s) Days Supply: 90 Refills: 0 Substitutions Allowed Notes from Pharmacy: From: Musa Evangelista DO To: [employer] (MAIL SERVICE) [facility] Sent: 12/08/2023 09:56:53 EDT Subject: FW: Medication Management Submitted: Complete:sertraline (sertraline 100 mg oral tablet) Signed by Musa Evangelista DO 12/08/2023 09:56:00 EDT Approved with modifications: sertraline (SERTRALINE 100MG TABLETS) TAKE 1 TABLET BY MOUTH DAILY Qty: 90 tab(s) Days Supply: 90 Refills: 3 Substitutions Allowed Route To Pharmacy - [employer] ([facility]) [facility] Signed by Musa Evangelista DO [facility]05-21-2024 Hospital Discharge instructions Patient Education 11/07/2023 15:50:08 Urinary Tract Infection, Adult Urinary Tract Infection, Adult A urinary tract infection (UTI) is an infection of any part of the urinary tract. The urinary tractincludes the kidneys, ureters, bladder, and urethra. These organs make, store, and get rid of urinein the body. An upper UTI affects the [...] Treatment for this condition includes: Antibiotic medicine. Qqpq-aap-rdagvro medicines to treat discomfort. Drinking enough water to stay hydrated. If you have frequent infections or have other conditions such as a kidney stone, you may need to see a health care provider who specializes in the urinary tract (urologist). In rare cases, urinary tract infections can cause sepsis. Sepsis is a life- threatening condition that occurs when the body responds to an infection. Sepsis is treated in the hospital with IV antibiotics, fluids, and other medicines. Follow these instructions at home: Medicines Take mwhu-jdg-lieuiow and prescription medicines only as told by your health care provider. If you were prescribed an antibiotic medicine, take it as told by your health care provider. Do notstop using the antibiotic even if you start [...] told by your health care provider. Do notstop using the antibiotic even if you start to feel better. Keep all follow-up visits. This is important. This information is not intended to replace advice given to you by your health care provider. Make sure you discuss any questions you have with your health care provider. Document Revised: 01/15/2021 Document Reviewed: 01/15/2021 [employer] Patient Education 2022 [employer] Follow Up Care 10/19/2023 15:34:38 With:JOSELYN NESBITT PA-C, URL Address: [address] [place] [address] [phone] When: Unknown Comments:6 mos (no labs) [facility] 04-01-2024 Note From: Yun Agee ([facility] To: Celia Eason CNP; Sent: 09/15/2023 09:11:20 EDT Subject: FW: Medication Management Due Date/Time: 09/16/2023 09:00:00 EDT Caller Name: NICOLETTE EVANGELISTA; Caller Number: Christine , Sangeeta From: [employer] (MAIL SERV[facility]) [facility] To: Celia Eason CNP Sent: September 15, 2023 8:00:56 AM CDT Subject: Medication Management Due: September 16, 2023 12:03:56 AM CDT On Hold Pending Signature Dispensed Drug: sertraline (sertraline 100 mg oral tablet), TAKE 1 TABLET BY MOUTH DAILY Quantity: 90 tab(s) Days Supply: 90 Refills: 0 Substitutions Allowed Notes from Pharmacy: From: Musa Evangelista DO To: [employer] (MAIL SERVICE) [facility] Sent: 09/18/2023 10:21:59 EDT Subject: FW: Medication Management Submitted: Complete:sertraline (sertraline 100 mg oral tablet) Signed by Musa Evangelista DO 09/18/2023 10:21:00 EDT Approved with modifications: sertraline (SERTRALINE 100MG TABLETS) TAKE 1 TABLET BY MOUTH DAILY Qty: 90 tab(s) Days Supply: 90 Refills: 0 Substitutions Allowed Route To Pharmacy - [facility] ([facility]) [facility] Signed by Musa Evangelista DO [facility]03-18-2024 Note From: Yun Agee ([facility] To: Celia Eason CNP; Sent: 09/04/2023 07:50:01 EDT Subject: FW: Medication Management Due Date/Time: 09/04/2023 09:00:00 EDT Caller Name: NICOLETTE EVANGELISTA; Caller Number: Christine , Sangeeta Patient matched by Yun Agee on 09/04/2023 07:49:49 EDT From: [employer] ([facility]) [facility] To: Celia Eason CNP Sent: September 03, 2023 8:00:43 AM CDT Subject: Medication Management Due: September 04, 2023 12:31:07 AM CDT On Hold Pending Signature Dispensed Drug: atorvastatin (atorvastatin 10 mg oral tablet), TAKE 1 TABLET BY MOUTH DAILY Quantity: 90 tab(s) Days Supply: 90 Refills: 0 Substitutions Allowed Notes from Pharmacy: From: Celia Eason APRN, CNP To: [employer] (MAIL SERV[facility]) [facility] Sent: 09/04/2023 09:55:24 EDT Subject: FW: Medication Management Submitted: Complete:atorvastatin (atorvastatin 10 mg oral tablet) Signed by Celia Eason APRN, CNP 09/04/2023 09:55:00 EDT Approved with modifications: atorvastatin (ATORVASTATIN 10MG TABLETS) TAKE 1 TABLET BY MOUTH DAILY Qty: 90 tab(s) Days Supply: 90 Refills: 1 Substitutions Allowed Route To Pharmacy - [facility] ([facility]) [facility]01-08-2024 Note From: Yun Agee ([facility] To: Celia Eason CNP; Sent: 06/26/2023 08:36:12 EST Subject: FW: Medication Management Due Date/Time: 06/26/2023 09:00:00 EST Caller Name: NICOLETTE EVANGELISTA; Caller Number: Christine , Sangeeta From: [employer] (MAIL SERV[facility]) [facility] To: Celia Eason CNP Sent: June 25, 2023 8:00:40 AM 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 Subject: Medication Management Due: June 26, 2023 12:24:29 AM DIRECTORY ASSISTANCE OPERATOR On Hold Pending Signature Dispensed Drug: sertraline (sertraline 100 mg oral tablet), TAKE 1 TABLET BY MOUTH DAILY Quantity: 90 tab(s) Days Supply: 90 Refills: 0 Substitutions Allowed Notes from Pharmacy: From: Musa Evangelista DO To: [employer] (MAIL SERVICE) [facility] Sent: 06/26/2023 10:41:08 EST Subject: FW: Medication Management Submitted: Complete:sertraline (sertraline 100 mg oral tablet) Signed by Musa Evangelista DO 06/26/2023 10:41:00 EST Approved sertraline (SERTRALINE 100MG TABLETS) TAKE 1 TABLET BY MOUTH DAILY Qty: 90 tab(s) Days Supply: 90 Refills: 0 Substitutions Allowed Route To Pharmacy - [facility] ([facility]) [facility] Signed by Musa Evangelista DO [facility]12-26-2023 Note From: Yun Agee ([facility] To: Celia Eason CNP; Sent: 06/13/2023 16:03:56 EST Subject: FW: Medication Management Due Date/Time: 06/14/2023 09:01:00 EST Caller Name: NICOLETTE EVANGELISTA; Caller Number: Christine , Sangeeta Patient matched by Yun Agee on 06/13/2023 16:03:46 EST From: [employer] ([facility]IL [facility]) [facility] To: Celia Eason CNP Sent: June 13, 2023 8:01:07 AM DIRECTORY ASSISTANCE OPERATOR Subject: Medication Management Due: June 14, 2023 12:07:09 AM DIRECTORY ASSISTANCE OPERATOR On Hold Pending Signature Dispensed Drug: atorvastatin (atorvastatin 10 mg oral tablet), TAKE 1 TABLET BY MOUTH DAILY Quantity: 90 tab(s) Days Supply: 90 Refills: 0 Substitutions Allowed Notes from Pharmacy: From: Musa Evangelista DO To: [employer] (MAIL SERV[facility]) [facility] Sent: 06/13/2023 16:53:16 EST Subject: FW: Medication Management Submitted: Complete:atorvastatin (atorvastatin 10 mg oral tablet) Signed by Musa Evangelista DO 06/13/2023 16:53:00 EST Approved with modifications: atorvastatin (ATORVASTATIN 10MG TABLETS) TAKE 1 TABLET BY MOUTH DAILY Qty: 90 tab(s) Days Supply: 90 Refills: 0 Substitutions Allowed Route To Pharmacy - [facility] ([facility]) [facility] Signed by Musa Evangelista DO [facility]12-26-2023 Hospital Discharge instructions Follow Up Care 06/13/2023 14:00:48 With:LAZ FLEMING, JOSELYN Clark, URL Address: [address] [place] [address] When:Within 4 Month(s) [facility] 12-26-2023 Evaluation note* Encounter Date Diagnosis Assessment Notes Treatment Notes Treatment Clinical Notes May, Obesity (ICD-10 - E66.9) Plan, [...] Thyroid nodule (ICD-10 - E04.1) Pathology from [facility], 02/10/2020; left thyroid lobe lobectomy incidental focus [...] and make recommendations for long-term supplementation with ydnw-cra-aoetztc formulations or prescription grade repletion. May, BMI 28.0-28.9,adult (ICD-10 - Z68.28) May, Other I have spent 30 minutes with this patient and over 50% of the visit was counseling done by myself, Jessica MARI. [facility] Other 10-30-2023 Evaluation note* Encounter Date Diagnosis [...] Thyroid nodule (ICD-10 - E04.1) [facility], [facility]; left thyroid lobe lobectomy incidental [...] and make recommendations for long-term supplementation with yhph-icd-psrtdfh formulations or prescription grade repletion. Mar, BMI 29.0-29.9,adult (ICD-10 - Z68.29) Mar, Other I have spent 30 minutes with this patient and over 50% of the visit was counseling done by myself, Jessica MARI. [facility] Other 08-30-2023 Evaluation note* Encounter Date Diagnosis [...] Thyroid nodule (ICD-10 - E04.1) [facility], [facility]; left thyroid lobe lobectomy incidental [...] and make recommendations for long-term supplementation with irar-urv-rbwzwmd formulations or prescription grade repletion. Jan, Other I have spent 30 minutes with this patient and over 50% of the visit was counseling done by myself, Jessica MARI. [facility] Other 08-28-2023 Evaluation note* Encounter Date Diagnosis Assessment Notes Treatment Notes Treatment Clinical Notes Jan, Obesity, unspecified classification, unspecified obesity type, unspecified whether serious comorbidity present (ICD-10 - E66.9) Jan, BMI 30.0-30.9,adult (ICD-10 - Z68.30) Jan, Other Summary of Visi t: (A) Much emotional support provided today (B) Discussed including protein with all snacks (C) Reviewed the plate method [facility] 11-09-2022 Hospital Discharge instructions Patient Education 04/27/2022 14:59:23 Kidney Stones, Dmbs-ef-Zvbn Kidney Stones Kidney stones are rock-like masses [...] Follow these instructions at home: Medicines Take yadh-xtc-vpdbzbd and prescription medicines only as told by [...] 11/21/2008 Document Revised: 10/22/2019 Document Reviewed: 10/22/2019 [employer] Patient Education 2020 [employer]. Follow Up Care 02/19/2021 09:16:30 With:JOSELYN NESBITT PA-C, URL Address: [place] [address] When: Unknown [facility] evaluation + Plan note Future Appointments Appointment Date:05/02/2023 03:00:00 PM Scheduled Provider:JOSELYN NESBITT PA-C Location:[facility] Appointment Type:URO Office Visit [facility] evaluation + Plan note Future Appointments Appointment Date:05/02/2023 03:00:00 PM Scheduled Provider:JOSELYN NESBITT PA-C Location:[facility] Appointment Type:URO Office Visit Diagnostic Tests Pending * [facility]rine [facility] Future App[facility]ments Appointment Date:08/21/2023 03:00:00 PM Scheduled Provider: Location:[facility] Appointment Type:URO Nurse Visit Appointment Date:10/23/2023 02:45:00 PM Scheduled Provider:Marshall RIZVI MD [facility]O [facility] Visit [facility] Evaluation + Plan note Future Appointments Appointment Date:10/23/2023 02:45:00 PM Scheduled Provider:Marshall RIZVI MD Location:[facility] Appointment Type:URO Office Visit [facility] evaluation + Plan note Future Appointments Appointment Date:10/23/2023 02:45:00 PM Scheduled Provider:Marshall RIZVI MD Location:[facility] Appointment Type:URO Office Visit Diagnostic Tests Pending * Urine Culture [facility]26[facility]23 [facility] Future Appointments Appointment Date:05/14/2024 03:00:00 PM Scheduled Provider:JOSELYN NESBITT PA-C Location:[facility]ue Appointment Type:URO Office Visit [facility] evaluation + Plan note Future Appointments Appointment Date:05/14/2024 03:00:00 PM Scheduled Provider:JOSELYN NESBITT PA-C Location:[facility] Appointment Type:URO Office Visit Diagnostic Tests Pending * Urine Culture [facility]/07[facility]23 [facility] assessment information available [facility] Work Phone: evaluation noteNo InformationNort Mobilization Labs Other evaluation noteNort Mobilization Labs Other evaluation note* Diagnosis Onset Date Resolution Status BMI 28.0-28.9,adult acute Hyperlipemia acute Hypothyroidism acute Obesity acute Prediabetes acute Vitamin D deficiency acute S/P hysterectomy with oophorectomy noneactive [facility] [facility] evaluation note* Diagnosis Onset Date Resolution Status BMI 28.0-28.9,adult acute Hyperlipemia acute Hypothyroidism acute Obesity acute Prediabetes acute Vitamin D deficiency acute S/P hysterectomy with oophorectomy noneactive BMI 29.0-29.9,adult acute Family history of diabetes mellitus (DM) acute Hyperlipemia acute Hypothyroidism acute Obesity acute Prediabetes acute Vitamin B 12 deficiency acut e Vitamin D deficiency acute [facility] Work Phone: evaluation note* Diagnosis Onset Date Resolution Status BMI 29.0-29.9,adult acute Family history of diabetes mellitus (DM) acute Hyperlipemia acute Hypothyroidism acute Obesity acute Prediabetes acute Vitamin B 12 deficiency acut e Vitamin D deficiency acute [facility] Work Phone: evaluation note* Diagnosis Onset Date [...] deficiency acut e Vitamin D deficiency acute [facility] Work Phone: Evaluation note* Diagnosis Annual physical exam- Primary Routine general medical examination at a health care facility Blood tests for routine general physical examination Laboratory examination ordered as part of a routine general medical examination documented in this encounter [facility] general Narrative - Reported* Type Description Date Medical History hypokalemia Medical History hyperlipidemia Medical History Hypothyroidism Medical History bladder trouble Medical History cancer Medical History insulin resistance Medical History prediabetes Medical History kidney stones Surgical History tonsillectomy Surgical History bilateral mastectomy Surgical History thyroidectomy, subtotal Surgical History knee surgery left Hospitalization History See Above [facility] Other History general [facility] course Narrative No data available for this section [facility] Hospital Discharge instructions No data available for this section [facility] Additional Instructions DISCHARGE INSTRUCTIONS FOR [...] in an emergency, call the office at [[phone]]. TODAY -Take it easy the rest of [...] FOLLOW UP -Please call the office at [phone] to arrange an appointment to see me in 2 [facility] Work Phone: Hospital Discharge instructions Additional Instructions [...] FOLLOW UP -[Please call the office at ([phone]) to make follow appointment before leaving the hospital]. -[2 Weeks] [ ][facility] Work Phone: Instructions* Attachments The following attachments cannot be sent through Care Everywhere. * Yearly Physical for Adults (Irish) documented in [facility] note No data available for this section [facility] Assessments No Assessments Information Available Chief [...] 12 deficiency Vitamin D deficiency Chief Complaint Admit Date WMN f/u March 07, 2024 3:06pm WMN f/u May 02, 2024 3:22pm Reason for Visit Admit Date BMI 29.0-29.9,adult March 07, 2024 3:06pm Family history of diabetes mellitus (DM) March 07, 2024 3:06pm Hyperlipemia March 07, 2024 3:06pm Hypothyroidism March 07, 2024 3:06pm Obesity March 07, 2024 3:06pm Prediabetes March 07, 2024 3:06pm Vitamin B 12 deficiency March 07, 2024 3:06pm Vitamin D deficiency March 07 3:06pm BMI 29.0-29.9,adult May 02, 2024 3:22pm Family history of diabetes mellitus (DM) May 02, 2024 3:22pm Hyperlipemia May 02, 2024 3:22pm Hypothyroidism May 02, 2024 3:22pm Obesity May 02, 2024 3:22pm Prediabetes May 02, 2024 3:22pm Vitamin B 12 deficiency May 02, 024 3:22pm Vitamin D deficiency May 02, 2024 3:22pm Advance Directives No Advanced Directives Records Found [...] 22, 2023 End: June 22, 2023 Emy Crowe DO Attending Provider Active Sta rt: June 22, 2023 End: June 22, 2023 Team Status: Inactive Member Role Status Dates Musa Evangelista DO Primary Care Provider Active Start: July 07, 2023 End: July 07, 2023 Emy Crowe , DO Attending Provider Active Sta rt: July 07, 2023 End: July 07, 2023 Team Status: Inactive Member Role Status Dates Musa Evangelista DO Primary Care Provider Active Tsering Velez MD Attending Provider Active Team Status: Active Member Role Status Dates Musa Evangelista DO Primary Care Provider Active Viktoria Birmingham , VENTURE CAPITALIST Attending Provider Active Team Status: Inactive Member Role Status Dates Musa Evangelista DO Primary Care Provider Active Emy Crowe , DO Attending Provider Active Team Status: Inactive Member Role Status Dates Musa Evangelista DO Primary Care Provider Active Start: August 08, 2023 End: August 08, 2023 Viktoria Birmingham , VENTURE CAPITALIST Attending Provider Active Start: August 08, 2023 End: August 08, 2023 Team Status: Inactive Member Role Status Dates Musa Evangelista DO Primary Care Provider Active Start: October 10, 2023 End: October 10, 2023 Viktoria Birmingham , VENTURE CAPITALIST Attending Provider Active Start: October 10, 2023 End: October 10, 2023 Team Status: Inactive Member Role Status Dates Musa Evangelista DO Primary Care Provider Active Start: November 21, 2023 End: November 21, 2023 Viktoria Birmingham , VENTURE CAPITALIST Attending Provider Active Start: November 21, 2023 End: November 21, 2023 Team Status: Inactive Member Role Status Dates Musa Evangelista DO Primary Care Provider Active Start: January 11, 2024 End: January 11, 2024 Viktoria Birmingham , VENTURE CAPITALIST Attending Provider Active Start: January 11, 2024 End: January 11, 2024 Team Status: Inactive Member Role Status Dates Musa Evangelista DO Primary Care Provider Active Start: March 07, 2024 End: March 07, 2024 Viktoria Birmingham , VENTURE CAPITALIST Attending Provider Active Start: March 07, 2024 End: March 07, 2024 Office Machinery Or Equipment Installer Relationship Specialty Start Date End Date Ambreen Dumont, VENTURE CAPITALIST-MECHANICAL TECHNICAL SERVICE SPECIALIST [address] [place] [address] PCP - General Family Medicine 11/29/23 Team Status: Inactive Member Role Status Dates Musa Evangelista DO Primary Care Provider Active Start: May 02, 2024 End: May 02, 2024 Viktoria Birmingham APRN Attending Provider Active Start: May 02, 2024 End: May 02, 2024 INFORMATION SOURCE (unrecogn ized section and content) DATE CREATED AUTHOR 11/25/2022 [facility] DATE CREATED AUTHOR AUTHOR'S ORGANIZ ATION 08/06/2023 [facility] EPIC DATE CREATED AUTHOR AUTHOR'S ORGANIZ ATION 11/12/2023 [facility] DATE CREATED AUTHOR AUTHOR'S ORGANIZ ATION 11/18/2023 [facility] DATE CREATED AUTHOR AUTHOR'S ORGANIZ ATION 02/08/2024 [facility] DATE CREATED AUTHOR AUTHOR'S ORGANIZ ATION 05/07/2024 [facility] DATE CREATED AUTHOR AUTHOR'S ORGANIZ ATION 05/13/2024 [facility] REASON FOR VISIT (unrecogniz ed section and content) Reason Comments Annual Exam Goals (unrecognized section and content) Goals may [...] BE BASED ON THE PRIMARY CLINICAL RECORDS. [employer] [facility]. provides no warranty or guarantee of the accuracy or completeness of information in this document.
== END 2024-05-15 07:14 | disposition home or self-care (01) ==
LOC: LAB 07:18
PROVIDERS: PCP Nurse Practitioner; Visit Provider Nurse Practitioner Family
DX: E24.9 Cushing's syndrome, unspecified (principal); E55.9 Vitamin D deficiency, unspecified; Z83.3 Family history of diabetes mellitus; R73.03 Prediabetes
CPT/HCPCS: 36415; 80299; 82533

== ENCOUNTER 2024-11-22 14:16 | Outpatient (OUT) | payer OTHER, SELFPAY ==
--- OUTSIDE RECORDS SUMMARY | 2024-11-20 15:45 | XMS_ITS | Encounter Summary ---
Author Organization [employer] Address [id number] [address] [place] [address] Care Team Providers Care Sports Management Professor Name Role Phone Tim Ambreen J NUCLEAR POWERPLANT MECHANIC HELPER-SENIOR RESERVOIR ENGINEER Primary Care Provid er Reason for Referral * Rehabilitation - Outpatient (Routine) - Authorized Specialty Diagnoses / Procedures Referred By Gabe salcedo Referred To Contact Rehabilitation Diagnoses Degenerative tear of lateral meniscus, left Ramirez Hernández DO [address] [place] [address] Phone: tel: fax: Referral ID Status Reason Start Date Expiration Date Visits Requested Visits Authorized [id number] Authorized Specialty Services Required 11/20/2024 05/22/2025 12 12 Reason for Visit * Reason Comments Knee Pain Swelling left knee, 3 weeks, shingles Encounter Details Date Type Department Care Team (Late st Contact Info) Description 11/20/2024 3:45 PM EDT Office Visit [facility] Internal Medicine - Family Medicine [address] [place] [address] Ramirez Hernández DO [address] [place] [address] Degenerative tear of lateral meniscus, left (Primary Dx); Herpes zoster without complication Social History Tobacco Use Types Packs/Day Years Used Date Smoking Tobacco: Never Smokeless Tobacco: Never Alcohol Use Standard Drinks/Week Comments Not Currently 0 (1 standard drink = 0.6 oz pur e alcohol) rare PHQ-2 Answer Date Recorded Total Score 0 11/20/2024 Hunger Screening Answer Date Recorded Within the past 12 months we worried whether our food would run out before we got money to buy more. Never True 11/20/2024 Within the past 12 months th e food we bought just didn't last and we didn't have money to get more. Never True 11/20/2024 Comments Unknown Sex and Gender Information Value Date Recorded Sex Assigned at Not on file Legal Sex Female 9:22 AM EDT Gender Identity Not on file Sexual Orientation Not on file documented as of this encounter Last Filed Vital Signs Vital Sign Reading Time Taken Comments Blood Pressure 128/60 11/20/2024 3:43 PM EDT Pulse 84 11/20/2024 3:43 PM EDT Temperature 36.5 C (97.7 F) 11/20/2024 3:43 PM EDT Respiratory Rate 18 11/20/2024 3:43 PM EDT Oxygen Saturation 98% 11/20/2024 3:43 PM EDT Inhaled Oxygen Concentration - - Weight 80.3 kg (177 lb) 11/20/2024 3:43 PM EDT Height 172.7 cm (5' 7.99 ) 11/20/2024 3:43 PM ED T Body Mass Index 26.92 11/20/2024 3:43 PM EDT documented in this encounter Progress Notes * Ramirez Hernández, DO - 11/20/2024 3:45 PM EDT IM PROGRESS NOTE Patient - Nicolette Evangelista Age - 49 y.o. - 1975 ASSESSMENT & PLAN 1. Degenerative tear of lateral meniscus, left (Primary) -patient with previous left knee reconstructive surgery, with new onset of swelling and mild discomfort, with abnormal findings on knee stress testing -we discussed options of treatment given her relatively asymptomatic course so far -should continue wearing a elastic knee brace for support and stabilization -start physical therapy for knee and quadricep strengthening -if not improving with conservative treatment, will need MRI of the knee -start meloxicam 15 mg daily and discontinue OTC ibuprofen - meloxicam (MOBIC) 15 mg tablet; Take 1 tablet (15 mg total) by mouth in the morning. Dispense: 30tablet; Refill: 2 - Ambulatory referral to Physical Therapy; Future 2. Herpes zoster without complication -patient with L2, L3 rash with symptoms -start valacyclovir 1000 mg b.i.d. x7 days -if any neuropathic symptoms should start, we can add gabapentin -advised patient to get her shingles vaccination in 2-3 months. - valACYclovir (VALTREX) 1000 mg tablet; Take 1 tablet (1,000 mg total) by mouth in the morning and1 tablet (1,000 mg total) before bedtime. Do all this for 7 days. Dispense: 14 tablet; Refill: 0 Subjective MUSCULOSKELETAL PROBLEM Location: left knee(s) Other site(s) affected: None This is a new problem. Problem is described as aching and swelling in the left knee with occasional ???catching?? sensation Severity is mild It normally occurs continuously There Is associated swelling and stiffness. Morning stiffness does last more than 1 hour. Number of Joints affected is 1 Symptoms (Synovitis) have lasted since never.. Problem started gradual, with a known trigger of starting to exercise more regularly over the past year. Does some running on a daily basis at the gym on a treadmill, as well as using weights for upper and lower extremities. Frequency of symptoms is daily. She denies any actual falls or instability on the left knee. Aggravating factors include exercising. Symptom severity has has worsened slightly. Any previous Imaging? No Previous treatments include NSAIDS over the short term. Patient has a history of a left knee reconstructive surgery approximately 30 years ago after experiencing displacement of her left patella and tendon. These treatments have provided minimal relief. How problem has changed since last visit:NA. This is the 1st time her left knee has bothered her since she had the reconstructive surgery 30 years ago. A review of systems was negative except for the following: Dermatological: Noticed a painful, burning rash on her right buttock starting 24-36 hours ago. There was some tingling and some blisters, but no drainage. Does have a history of shingles outbreak in the past, and this feels similar.. Exam BP 128/60 (BP Site: Left Arm, BP Postition: Sitting, BP CUFF SIZE: M (9-13 inches)) Pulse 84 Temp 36.5 ??C (97.7 ??F) (Oral) Resp 18 Ht 172.7 cm (5' 7.99 ) Wt 80.3 kg (177 lb) SpO2 98% BMI 26.92 kg/m?? Physical Exam Vitals reviewed. Constitutional: General: She is not in acute distress. Appearance: She is not toxic-appearing. Comments: Overweight HENT: Head: Normocephalic. Right Ear: External ear normal. Left Ear: External ear normal. Mouth/Throat: Mouth: Mucous membranes are moist. Eyes: General: No scleral icterus. Comments: Mild exophthalmos bilaterally Cardiovascular: Rate and Rhythm: Normal rate and regular rhythm. Heart sounds: No murmur heard. No gallop. Pulmonary: Effort: Pulmonary effort is normal. Breath sounds: No wheezing or rales. Abdominal: Palpations: Abdomen is soft. Musculoskeletal: General: Swelling (Mild medial and lateral knee space on the left) present. Cervical back: No tenderness. Right lower leg: No edema. Left lower leg: No edema. Comments: Left knee: Drawer sign negative. Paty strongly positive both medial and lateral menisci. Lymphadenopathy: Cervical: No cervical adenopathy. Skin: General: Skin is warm and dry. Coloration: Skin is not jaundiced. Findings: No bruising. Comments: Small patch of vesicles and pink slightly raised skin in the right L2, L3 dermatome at the buttock Neurological: Mental Status: She is alert and oriented to person, place, and time. Gait: Gait normal. Psychiatric: Mood and Affect: Mood normal. Behavior: Behavior normal. Meds Current Outpatient Medications: atorvastatin (LIPITOR) 10 mg tablet, Take 1 tablet (10 mg total) by mouth in the morning., Disp: 90tablet, Rfl: 2 KLOR-CON/EF 25 mEq disintegrating tablet, , Disp: , Rfl: levothyroxine (SYNTHROID, LEVOTHROID) 50 MCG tablet, TAKE 1 TABLET BY MOUTH EVERY DAY IN THE MORNING, Disp: 90 tablet, Rfl: 2 metFORMIN XR (GLUCOPHAGE XR) 500 mg 24 hr tablet, Take 1 tablet (500 mg total) by mouth in the morning and 1 tablet (500 mg total) before bedtime. 2 tab 2x day ., Disp: , Rfl: oxybutynin XL (DITROPAN-XL) 10 mg 24 hr tablet, Take 1 tablet (10 mg total) by mouth in the morning., Disp: , Rfl: phentermine (ADIPEX-P) 37.5 mg tablet, Take 1 tablet (37.5 mg total) by mouth., Disp: , Rfl: sertraline (ZOLOFT) 100 mg tablet, Take 1 tablet (100 mg total) by mouth in the morning., Disp: 90 tablet, Rfl: 2 meloxicam (MOBIC) 15 mg tablet, Take 1 tablet (15 mg total) by mouth in the morning., Disp: 30 tablet, Rfl: 2 valACYclovir (VALTREX) 1000 mg tablet, Take 1 tablet (1,000 mg total) by mouth in the morning and 1tablet (1,000 mg total) before bedtime. Do all this for 7 days., Disp: 14 tablet, Rfl: 0 Lab Results No visits with results within 1 Month(s) from this visit. Latest known visit with results is: Hospital Outpatient Visit on 04/04/2024 Component Date Value Ref Range Status TSH 04/04/2024 2.74 0.49 - 4.67 uIU/mL Final Hemoglobin A1C 04/04/2024 6.0 (H) 4.4 - 5.6 % Final Average glucose 04/04/2024 126 mg/dL Final Cholesterol 04/04/2024 199 150 - 200 mg/dL Final Triglycerides 04/04/2024 75 27 - 150 mg/dL Final HDL Cholesterol 04/04/2024 68 >39 mg/dL Final VLDL 04/04/2024 15 0 - 30 mg/dL Final LDL (calc) 04/04/2024 116 <130 mg/dL Final Cholesterol:HDL Ratio 04/04/2024 2.9 1.0 - 5.0 Final White Blood Cells 04/04/2024 9.5 4.0 - 11.0 X10E9/L Final RBC count 04/04/2024 4.93 3.80 - 5.20 X10E12/L Final Hemoglobin 04/04/2024 15.4 11.7 - 15.5 g/dL Final Hematocrit 04/04/2024 45.1 35 - 47 % Final MCV 04/04/2024 91 80 - 100 fL Final MCH 04/04/2024 31.3 27 - 34 pg Final MCHC 04/04/2024 34.2 32 - 36 g/dL Final RDW 04/04/2024 13.9 11.5 - 15.0 % Final Platelets 04/04/2024 288 150 - 450 X10E9/L Final MPV 04/04/2024 8.1 7 - 12 fL Final % neutrophils 04/04/2024 63.4 % Final % lymphocytes 04/04/2024 30.5 % Final % monocytes 04/04/2024 4.5 % Final % eosinophils 04/04/2024 0.5 % Final % Basophils 04/04/2024 1.1 % Final Neutrophils Absolute (A) 04/04/2024 6.0 1.5 - 6.6 X10E9/L Final Lymphocytes Absolute 04/04/2024 2.9 1.0 - 3.5 X10E9/L Final Monocytes Absolute 04/04/2024 0.4 0 - 0.9 X10E9/L Final Eosinophils Absolute 04/04/2024 0.0 0.0 - 0.4 X10E9/L Final Basophils Absolute 04/04/2024 0.1 0.0 - 0.2 X10E9/L Final Sodium 04/04/2024 138 134 - 146 mmol/L Final Potassium, Bld 04/04/2024 4.7 3.5 - 5.0 mmol/L Final Chloride 04/04/2024 98 98 - 109 mmol/L Final CO2 04/04/2024 28 22 - 32 mmol/L Final Anion gap 04/04/2024 12 5 - 15 mmol/L Final BUN 04/04/2024 42 (H) 5 - 23 mg/dL Final Creatinine 04/04/2024 0.99 0.40 - 1.00 mg/dL Final Glucose 04/04/2024 94 65 - 99 mg/dL Final Calcium 04/04/2024 9.4 8.5 - 10.5 mg/dL Final Total Protein 04/04/2024 7.7 6.0 - 8.0 g/dL Final Albumin 04/04/2024 4.5 3.2 - 5.3 g/dL Final Alkaline Phosphatase 04/04/2024 65 39 - 130 U/L Final AST 04/04/2024 20 0 - 41 U/L Final ALT 04/04/2024 24 0 - 31 U/L Final Total bilirubin 04/04/2024 0.4 0.3 - 1.2 mg/dL Final eGFR (CKD-EPI)non-race dependent 04/04/2024 69 >59 ml/min/1.73sq.m Final Other Testing No results found. Ramirez Hernández DO.RODRIGO [facility] Office: [phone] documented in this encounter Plan of Treatment Upcoming Encounters Date Type Department Care Team (Late st Contact Info) Description 04/08/2025 3:20 PM EDT Office Visit [facility] Internal Medicine - Family Medicine [address] [place] [address] Ambreen Dumont APRN-SENIOR RESERVOIR ENGINEER [address] [place] [address] Scheduled Referrals Name Type Priority Associated Diagnoses Order Schedule Ambulatory referral to Physical Therapy Outpatient Referral Routine Degenerative tear of lateral meniscus, left 1 Occurrences starting 11/20/2024 until 11/20/2025 documented as of this encounter Visit Diagnoses Diagnosis Degenerative tear of lateral meniscus, left- Primary Herpes zoster without complication documented in this encounter Additional Health Concerns Assessment Noted Time PHQ-9 Depression Total Score: 0 11/21/19 25 3:42 PM EDT A Body Mass Index follow-up plan has been documented for the patient 04/04/2024 3:59 PM EDT documented as of this encounter Care Teams Sports Management Professor Relationship Specialty Start Date End Date Ambreen Dumont APRN-SENIOR RESERVOIR ENGINEER [address] [place] [id number] PCP - General Family Medicine 11/29/23 documented as of this encounter
--- OUTSIDE RECORDS SUMMARY | 2024-11-22 14:20 | XMS_ITS | Clinical Summary ---
Author Organization [facility] Address [address] [place] [address] Care Team Providers Care Evaporator Operator Molasses Name Role Phone Tsering Rodriguez MD Unavailable [phone] Unallocated, [facility] Provider Primary Care Provi renetta Allergies Active Allergy Reactions Criticality Noted Date Comments Azithromycin Unknown 03/08/2023 Sulfa Antibiotics 03/08/2023 Sulfanilamide Unknown 03/08/2023 Medications sertraline (Zoloft) 100 MG tablet Take 100 mg by mouth in the morning. Active atorvastatin (Lipitor) 10 MG tablet Take 10 mg by mouth in the morning. Active levothyroxine (Synthroid, Levoxyl) 50 MCG tablet Take 50 mcg by mouth in the morning. Take on an empty stomach.. 3 Active oxybutynin XL (Ditropan-XL) 10 MG 24 hr tablet Take 10 mg by mouth in the morning. 3 Active metFORMIN XR (Glucophage-XR) 500 MG 24 hr tablet take 2 tablets by mouth twice a day with breakfast and dinner 3 Active Klor-Con/EF 25 MEQ effervescent tablet Take 25 mEq by mouth in the morning and 25 mEq before bedtime. 3 Active cephalexin (Keflex) 250 MG capsule TAKE 1 CAPSULE BY MOUTH ON MON, WED, AND FRI 5 Active phentermine 15 MG capsule TAKE 1 CAPSULE BY MOUTH EVERY DAY FOR 30 DAYS Active Family History Medical History Relation Name Comments Prostate cancer Father Prostate cancer Father's Brother Relation Name Status Comments Father Alive Father's Brother Mother Alive Social History Tobacco Use Types Packs/Day Years Used Date Smoking Tobacco: Former Cigarettes Smokeless Tobacco: Never Tobacco Cessation:Counseling Given: Not Answered Alcohol Use Standard Drinks/Week Comments Yes 0 (1 standard drink = 0.6 oz pure alcohol) Caffeine Intake: 1-2 cups of coffee per day AUDIT-C Answer Date Recorded Q1: How often do you have a drink containing alc ohol? Monthly or less 08/12/2024 Q2: How many drinks containi ng alcohol do you have on a typical day when you are drinking? 1 or 2 08/12/2024 Q3: How often do you have si x or more drinks on one occasion? Less than monthly 08/12/2024 PHQ-2 Answer Date Recorded Patient Health Questionnaire-2 Score 0 08/12/2024 Comments No Sex and Gender Information Value Date Recorded Sex Assigned at Female 03/07/2023 6:23 PM EDT Legal Sex Female 7:14 PM EDT Gender Identity Female 03/07/2023 6:23 PM EDT Sexual Orientation Straight 03/07/2023 6: 23 PM EDT Last Filed Vital Signs Vital Sign Reading Time Taken Comments Blood Pressure 120/70 08/12/2024 3:22 PM EST Pulse 72 01/07/2022 9:33 AM EDT Temperature - - Respiratory Rate 18 01/07/2022 9:33 AM EDT Oxygen Saturation 95% 01/07/2022 9:33 AM EDT Inhaled Oxygen Concentration - - Weight 80.3 kg (177 lb) 08/12/2024 3:22 PM EST Height 170.2 cm (5' 7 ) 08/04/2023 8:47 AM EST Body Mass Index 27.72 08/04/2023 8:47 AM EST Plan of Treatment Upcoming Encounters Date Type Department Care Team (Late st Contact Info) Description 08/19/2025 3:15 PM EST Office Visit [facility] [address] [facility] [address] [place] [address] Tsering Rodriguez MD [address] [facility] [address] [place] [address] Health Maintenance Due Date Last Done Comments CT Colonography 1974 FIT-DNA 1975 FIT 1975 FOBT 1975 Sigmoidoscopy 1975 Influenza Vaccine (Season Ended) 2025 10/04/2021, 03/04/2020, 02/19/2020, Additional history exists Colonoscopy 09/07/2031 09/06/2021 Colorectal Cancer Screening 09/07/2031 Cervical Cancer Screening Discontinued HPV/Cotest Discontinued 08/12/2024, 07/2020, 01/29/2020 Pap Smear Discontinued Procedures Procedure Name Priority Date/Time Associated Diagnosis Comments IGP, APT HPV,RFX 16/18,45 Routine 08/12/2024 12:00 AM EST Encounter for gynecological examination without abnormal finding Encounter for screening for cervical cancer from Last 3 Months or Most Recently Relevant to Health Maintenance Results * IGP, APT HPV,RFX 16/18,45 (08/12/2024 12:00 AM EST) Diagnosis: Comment [facility] Comment:NEGATIVE FOR INTRAEP ITHELIAL LESION OR MALIGNANCY. Specimen Adequacy: Comment [facility] Comment:Satisfactory for zahida luation. No endocervical component is identified. Clinician Provided ICD10: Comment [facility] Comment: Z01.419 Z12.4 Performed By: Comment [facility] Comment:Jennie Covarrubias, Tanbark Peeler (ASCP) Cyto Comments . [facility] Note: Comment [facility] Comment: The Pap smear is a screening test designed to aid in the detection of premalignant and malignant conditions of the uterine cervix. It is not a diagnostic procedure and should not be used as the sole means of detecting cervical cancer. Both false-positive and false-negative reports do occur. Test Methodology: Comment [facility] Comment: This liquid based ThinPrep(R) pap test was screened with the use of an image guided system. HPV Aptima Negative Negative [facility] Comment: This nucleic acid amplification test detects fourteen high-risk HPV types (16,18,31,33,35,39,45,51,52,56,58,59,66,68) without differentiation. Vaginal Fluid 08/12/2024 08/13/2024 Narrative [facility] - 08/14/2024 3:07 PM EST Performed at: 01 - [facility] [address] [facility] [place] [id number] Product Managent Intern: Shereen Irvin MD, Phone: [phone] Performed at: 02 - [facility] [address] [place] [id number] Product Managent Intern: Shereen Irvin MD, Phone: [phone] Specimen Comment: No. of containers..01 ThinPrep Vial us Tsering Rodriguez MD LAB BLOOD ORDERABLES Final Res ult [facility] from Last 3 Months or Most Recently Relevant to Health Maintenance Insurance [facility] Care Teams Evaporator Operator Molasses Relationship Specialty Start Date End Date Unallocated, [facility] Provider, [address] [place] [address] PCP - General 03/28/23 Tsering Rodriguez MD [address] [place] [address] [place] [address] Obstetrics and Gynecology 03/08/23
--- OUTSIDE RECORDS SUMMARY | 2024-11-22 14:20 | XMS_ITS | Encounter Summary ---
Author Organization [facility] tem Address [id number] [address] [place] [address] Care Team Providers Care Outsole Splicer Name Role Phone Ambreen Dumont ASSISTANT WOMENS VOLLEYBALL COACH-CAN FEEDER Primary Care Provid er Encounter Details Date Type Department Care Team (Latest Contact Info) Description 11/20/2024 Travel Social History Tobacco Use Types Packs/Day Years [...] on file documented as of this encounter Plan of Treatment Upcoming Encounters Date Type Department Care Team (Late st Contact Info) Description 04/08/2025 3:20 PM EDT Office Visit [facility] Internal Medicine - Family Medicine [address] [place] [address] Ambreen Dumont APRN-CAN FEEDER [address] [place] [address] documented as of this encounter Visit Diagnoses Not on filedocumented in this encounter Additional Health Concerns Assessment Noted Time PHQ-9 Depression Total Score: 0 11/21/19 25 3:42 PM EDT A Body Mass Index follow-up plan has been documented for the patient 04/04/2024 3:59 PM EDT documented as of this encounter Care Teams Outsole Splicer Relationship Specialty Start Date End Date Ambreen Dumont, ASSISTANT WOMENS VOLLEYBALL COACH-CAN FEEDER [address] [place] [address] PCP - General Family Medicine 11/29/23 documented as of this encounter
--- OUTSIDE RECORDS SUMMARY | 2024-11-22 14:20 | XMS_ITS | Clinical Summary ---
Author Organization [employer] tem Address [id number] [address] [place] [address] Care Team Providers Care Ap Operator Name Role Phone Tim Ambreen J FIELD MECHANICAL METER TESTER-BENDER MACHINE Primary Care Provid er Allergies Active Allergy Reactions Criticality Noted Date Comments Sulfa (Sulfonamide Antibiotics) Hives 11/17 Azithromycin Diarrhea,Vomiting 11/29/2023 Medications metFORMIN XR (GLUCOPHAGE XR) 500 mg 24 hr tablet Take 1 tablet (500 mg total) by mouth in the morning and 1 tablet (500 mg total) before bedtime. 2 tab 2x day . 3 Active oxybutynin XL (DITROPAN-XL) 10 mg 24 hr tablet Take 1 tablet (10 mg total) by mouth in the morning. 4 Active KLOR-CON/EF 25 mEq disintegrating tablet Active atorvastatin (LIPITOR) 10 mg tabletIndications: Mixed hyperlipidemia Take 1 tablet (10 mg total) by mouth in the morning. 90 tablet 2 4 Active sertraline (ZOLOFT) 100 mg tabletIndications: Anxiety and depression Take 1 tablet (100 mg total) by mouth in the morning. 90 tablet 2 4 Active levothyroxine (SYNTHROID, LEVOTHROID) 50 MCG tabletIndications: Postoperative hypothyroidism TAKE 1 TABLET BY MOUTH EVERY DAY IN THE MORNING 90 tablet 2 5 Active phentermine (ADIPEX-P) 37.5 mg tablet Take 1 tablet (37.5 mg total) by mouth. 5 Active meloxicam (MOBIC) 15 mg tabletIndications: Degenerative tear of lateral meniscus, left Take 1 tablet (15 mg total) by mouth in the morning. 30 tablet 2 5 Active valACYclovir (VALTREX) 1000 mg tabletIndications: Herpes zoster without complication Take 1 tablet (1,000 mg total) by mouth in the morning and 1 tablet (1,000 mg total) before bedtime. Do all this for 7 days. 14 tablet 5 11/28/19 25 Active phentermine 15 MG capsule Take 1 capsule (15 mg total) by mouth in the morning. 4 11/21/19 25 Discontin ued(Thera py completed ) CEPHalexin (KEFLEX) 250 mg capsule take 1 capsule by mouth once daily 4 11/21/19 25 Discontin ued(Thera py completed ) Active Problems No known active problems Encounters Date Type Department Care Team Description 11/20/2024 3:45 PM EDT Office Visit [facility] - Family Medicine [address] [place] [address] Ramirez Hernández, Degenerative tear of lateral meniscus, left (Primary Dx); Herpes zoster without complication 11/20/2024 Travel 09/08/2024 Refill [facility] - Family Medicine [address] [address] Ambreen Dumont, FIELD MECHANICAL METER TESTER-BENDER MACHINE Postoperative hypothyroidism from Last 3 Months Immunizations Immunization Administration Dates Next Due Influenza, Injectable, Quadrivalent 03/19/2019 Influenza, Injectable, quadrivalent (PF) 020 Family History Medical History Relation Name Comments Congenital heart disease Father Prostate cancer Father Autoimmune disease Mother Relation Name Status Comments Brother 1 Alive Brother 2 Alive Father Alive Mother Alive Son Alive Social History Tobacco Use Types Packs/Day Years Used Date Smoking Tobacco: Never Smokeless Tobacco: Never Tobacco Cessation:Counseling Given: Not Answered Alcohol Use Standard Drinks/Week Comments Not Currently [...] on file Sexual Orientation Not on file Last Filed Vital Signs Vital Sign Reading [...] Mass Index 26.92 11/20/2024 3:43 PM EDT Plan of Treatment Upcoming Encounters Date Type Department Care Team (Late st Contact Info) Description 04/08/2025 3:20 PM EDT Office Visit [facility] - Family Medicine [address] [place] [address] Ambreen Dumont, FIELD MECHANICAL METER TESTER-BENDER MACHINE [address] [place] [address] Health Maintenance Due Date Last Done Comments DTaP,Tdap and Td Vaccines (1 - Tdap) 1993 Pap Smear 1995 COVID-19 Vaccine (3 - 2023-2 5 season) 2024 10/08/2020, 09/17/2020 Zoster (Shingles) Vaccine (1 of 2) 2024 Influenza Vaccine 02/17/2025 03/04/2020, , 03/19/2019 Adult BMI Follow Up Plan 04/04/2025 04/04/2024 Adult BMI Screening 11/20/2025 11/20/2024 Depression Screening 11/20/2025 11/20/2024 Tobacco Screening 11/20/2025 11/20/2024 Medical Devices Not on file Insurance [employer] Care Teams Ap Operator Relationship Specialty Start Date End Date Ambreen Dumont, FIELD MECHANICAL METER TESTER-BENDER MACHINE [address] [place] [address] PCP - General Family Medicine 11/29/23
--- OUTSIDE RECORDS SUMMARY | 2024-11-22 14:20 | XMS_ITS | Encounter Summary ---
Author Organization [employer] tem Address [id number] [address] [place] [address] Care Team Providers Care Packaging Sales Name Role Phone Ambreen Dumont Primary Care Provid er Encounter Details Date Type Department Care Team (Late st Contact Info) Description 04/09/2024 Telephone [facility] - Family Medicine [address] [place] [phone] Manjula Abarca CMA Social History Tobacco Use Types Packs/Day Years Used Date Smoking Tobacco: Never Smokeless Tobacco: Never Alcohol Use Standard Drinks/Week Comments Not Currently 0 (1 standard drink = 0.6 oz pur e alcohol) rare PHQ-2 Answer Date Recorded Total Score 0 04/04/2024 Hunger Screening Answer Date Recorded Within the past 12 months we worried whether our food would run out before we got money to buy more. Never True 04/04/2024 Within the past 12 months th e food we bought just didn't last and we didn't have money to get more. Never True 04/04/2024 Comments Unknown Sex and Gender Information Value Date Recorded Sex Assigned at Not on file Legal Sex Female 9:22 AM EDT Gender Identity Not on file Sexual Orientation Not on file documented as of this encounter Miscellaneous Notes * Telephone Encounter - Manjula Abarca CMA - 04/09/2024 9:25 AM EDT ----- Message from JEFF Jones sent at 04/09/2024 7:31 AM EDT ----- Reviewed. A1c is mildly elevated at 6%, prediabetes zone. DM is at 6.5%. I encourage diet lower in carbohydrates, concentrated sweets. Incorporate diet and exercise. documented in this encounter Plan of Treatment Upcoming Encounters Date Type Department Care Team (Late st Contact Info) Description 04/08/2025 3:20 PM EDT Office Visit [facility] - Family Medicine [address] [place] [address] Ambreen Dumont, NICKEL OPERATOR-ONCOLOGY SOCIAL WORKER [address] [place] [address] documented as of this encounter Visit Diagnoses Not on filedocumented in this encounter Additional Health Concerns Assessment Noted Time PHQ-9 Depression Total Score: 0 04/04/20 3:27 PM EDT A Body Mass Index follow-up plan has been documented for the patient 04/04/2024 3:59 PM EDT documented as of this encounter Care Teams Packaging Sales Relationship Specialty Start Date End Date Ambreen Dumont, [place]-ONCOLOGY SOCIAL WORKER [address] [place] [address] PCP - General Family Medicine 11/29/23 documented as of this encounter
--- NOTE | 2024-11-22 14:23 | XR_ITS ---
The [address] [address] Patient Name: AHMET DAVIDSON MRN: [id number] date: 1975 Sex: F Assigned Patient Location: [facility] Current Patient Location: [facility] Accession/Order Number: [id number] Exam Date: 11/22/2024 15:24 Report Date: 11/22/2024 15:25 At the request of: ALEX SOUSA Procedure: XR abdomen 1V SINGLE VIEW ABDOMEN CLINICAL DATA: Follow-up kidney stones. COMPARISON: CT 09/16/2023 Supine view of the abdomen and pelvis was obtained. There is air and stool within the colon. There is no dilated small bowel. No soft tissue masses are noted. The kidneys are partially obscured. No suspect radiopaque renal stones are seen. There is slight levoscoliotic curvature. XR/XR abdomen 1V IMPRESSION: NO DEFINITE RADIOPAQUE STONES. Impression dictated by: Arianna Tan M.D. 11/22/2024 3:25 PM Dictation Location: [place] [address] Electronically authenticated by: [id number] Y Date: 11/22/2024 15:25
== END 2024-11-22 14:17 | disposition home or self-care (01) ==
LOC: RAD 14:18
PROVIDERS: PCP Nurse Practitioner; Visit Provider Physician Assistant
DX: N20.0 Calculus of kidney (principal)
CPT/HCPCS: 74018

== ENCOUNTER 2025-04-19 07:21 | Outpatient (OUT) | payer OTHER, SELFPAY ==
--- OUTSIDE RECORDS SUMMARY | 2025-04-08 15:20 | XMS_ITS | Encounter Summary ---
Author Organization Innotrieve tem Address [id number] [address] [place] [address] Care Team Providers Care Janitorial Assistant Name Role Phone Logan Lombardi APRN-TEJAL Primary Care Provider + Reason for Referral * Consultation (Routine) - AuthorizedSpecialtyDiagnoses / ProceduresReferred By ContactReferred To ContactObstetrics & Gynecology / Obstetrics and Gynecology Diagnoses Adult wellness visit Logan Lombardi APRN-CNP [address] [place] [address] Phone: tel: fax: [facility] Obstetrics/[facility]ne[facility] [address] [place] [address] Phone: tel: fax: Referral IDStatusReasonStart DateExpiration DateVisits RequestedVisits [id number] Specialty Services Required Reason for Visit * ReasonCommentsAnnual Exam Encounter Details DateTypeDepartmentCare Team (Latest Contact Info)Tsaeawfeyib23/21/2025 3:20 PM EDTOffice Visit [facility] Internal Medicine - Family Medicine [address] [place] [address] Logan Lombardi APRN-CNP [address] [place] [address] Adult wellness visit (Primary Dx); Blood tests for routine general physical examination; Screening for diabetes mellitus Social History Tobacco UseTypesPacks/DayYears UsedDateSmoking Tobacco: NeverSmokeless Tobacco: NeverAlcohol UseStandard Drinks/WeekCommentsNot Currently0 (1 standard drink = 0.6 oz pure alcohol)rarePHQ-2AnswerDate RecordedTotal Nxjpt419UDIT-C AnswerDate RecordedQ1: How often do you have a drink containing alcohol?Monthly or less04/08/2025Q2: How many drinks containing alcohol do you have on a typical day when you are drinking?1 or Q3: How often do you have six or more drinks on one occasion?Less than nkmwxmm4204/08/2025Hunger ScreeningAnswerDate RecordedWithin the past 12 months we worried whether our food would run out before we got money to buy more.Never True04/08/2025Within the past 12 months the food we bought just didn't last and we didn't have money to get more.Never True04/08/2025CommentsUnknownSex and Gender InformationValueDate RecordedSex Assigned at BirthNot on fileLegal ShbIcnvaj51/31/2024 9:22 AM EDT Gender IdentityNot on fileSexual OrientationNot on filedocumented as of this encounter Last Filed Vital Signs Vital SignReadingTime TakenCommentsBlood Htzzwciz761/6004/08/2025 3:44 PM EDT Afbrq150704/08/2025 3:44 PM ALGIewnabvpjkf78.6 ??C (97.8 ??F)04/08/2025 3:44 PM EDTRespiratory Mjyg1217 3:44 PM EDTOxygen Khjzvrrzoq23%04/08/2025 3:44 PM EDTInhaled Oxygen Concentration--Ukitej03.7 kg (175 lb 12.8 oz)04/08/2025 3:44 PM IVVXsgbzs804.7 cm (5' 7.99 )04/08/2025 3:44 PM EDTBody Mass Index26.74 04/08/2025 3:44 PM EDTdocumented in this encounter Functional Status * AUDIT-C ScoreAnswerDate of ZlkrwsyaynWowjay405/21/2025 3:44 PM Manjula Jane CMA * QuestionAnswerDate of AssessmentAuthorQ1: How often do you have a drink containing alcohol?Monthly or less04/08/2025 3:44 PM Manjula Jane CMA Q2: How many drinks containing alcohol do you have on a typical day when you are drinking?1 or 3:44 PM Manjula Jane CMAQ3: How often do you have six or more drinks on one occasion?Less than dlbxxyf4704/08/2025 3:44 PM Manjula Jane CMA documented as of this encounter Progress Notes * Logan Lombardi APRN-CARDIOPULMONARY TECHNOLOGIST CHIEF - 04/08/2025 3:20 PM EDT IM PROGRESS NOTE Patient - Nicolette Evangelista Age - 50 y.o. - 1975 ASSESSMENT & PLAN Patient presented to office today for Annual Adult Wellness Visit. BMI is 26.74. Weight loss of 2 lbs Education was provided on healthy nutrition. Encouraged regular cardiovascular exercise such as walking at least 30 minutes daily, 5 times per week Emphasized preventive health measures reduce health risks and promote healthy living. Goal for pt. is to achieve healthy BMI of 25 or under to reduce risk of developing diabetes and cardiovascular diseases. Flu vaccine Denies need for flu shot today. 1. Adult wellness visit (Primary) -bilateral mastectomy. -no need for mammogram -wellness labs ordered -referral to Women's [facility] for wellness exam - depression screen reviewed and negative 2. Blood tests for routine general physical examination - Thyroid profile includes TSH FT4; Future - Lipid profile; Future - Comprehensive metabolic panel; Future - CBC without diff; Future 3. Screening for diabetes mellitus A1c is 5.9. Previous A1c 6 Continue metformin - POCT Hemoglobin A1c Subjective PHQ-9 Summary: Little interest or pleasure in doing things: Not at all Total Score: 0 Fall Risk Assessment Summary: Low fall risk Annual Exam Pertinent negatives include no abdominal pain, chest pain, chills, coughing, diaphoresis, fatigue, fever, headaches, nausea, numbness, rash, vomiting or weakness. Social History Socioeconomic History Marital status: Spouse name: Not on file Number of children: Not on file Years of education: Not on file Highest education level: Not on file Occupational History Not on file Tobacco Use Smoking status: Never Smokeless tobacco: Never Vaping Use Vaping status: Never Used Substance and Sexual Activity Alcohol use: Not Currently Comment: rare Drug use: Never Sexual activity: Yes Partners: Male Other Topics Concern Not on file Social History Narrative Not on file Social Drivers of Health Financial Resource Strain: Not on file Food Insecurity: No Food Insecurity (04/08/2025) Hunger Screening Food Insecurity - Worry: Never True Food Insecurity - Inability: Never True Transportation Needs: Not on file Physical Activity: Not on file Stress: Not on file Social Connections: Not on file Interpersonal Safety: Not on file Housing Instability: Not on file Past Medical History: Diagnosis Date Breast cancer ([facility]) double mastectomy Chronic UTI Disease of thyroid gland Visual impairment Family History Problem Relation Age of Onset Autoimmune disease Mother Prostate cancer Father Congenital heart disease Father Dementia Father Past Surgical History: Procedure Laterality Date BREAST SURGERY HYSTERECTOMY THYROIDECTOMY partial TONSILLECTOMY Review of Systems Constitutional: Negative for activity change, appetite change, chills, diaphoresis, fatigue and fever. HENT: Negative for hearing loss, tinnitus and trouble swallowing. Respiratory: Negative for cough, chest tightness, shortness of breath and wheezing. Cardiovascular: Negative for chest pain, palpitations and leg swelling. Gastrointestinal: Negative for abdominal pain, constipation, diarrhea, nausea and vomiting. Genitourinary: Negative for difficulty urinating. Musculoskeletal: Negative for gait problem. Skin: Negative for rash. Neurological: Negative for dizziness, syncope, speech difficulty, weakness, light-headedness, numbness and headaches. Psychiatric/Behavioral: Negative for sleep disturbance. Exam BP 102/60 (BP Site: Left Arm, BP Postition: Sitting, BP CUFF SIZE: L (13-17 inches)) Pulse 83 Temp 36.6 ??C (97.8 ??F) (Oral) Resp 18 Ht 172.7 cm (5' 7.99 ) Wt 79.7 kg (175 lb 12.8 oz) SpO2 95% BMI 26.74 kg/m?? Physical Exam Vitals and nursing note reviewed. Constitutional: General: She is not in acute distress. HENT: Head: Normocephalic and atraumatic. Right Ear: Tympanic membrane normal. Left Ear: Tympanic membrane normal. Nose: Nose normal. Mouth/Throat: Mouth: Mucous membranes are moist. Pharynx: Oropharynx is clear. Eyes: Extraocular Movements: Extraocular movements intact. Conjunctiva/sclera: Conjunctivae normal. Pupils: Pupils are equal, round, and reactive to light. Neck: Thyroid: No thyroid mass, thyromegaly or thyroid tenderness. Cardiovascular: Rate and Rhythm: Normal rate and regular rhythm. Pulses: Normal pulses. Pulmonary: Effort: Pulmonary effort is normal. Breath sounds: Normal breath sounds. Abdominal: General: Bowel sounds are normal. Palpations: Abdomen is soft. Tenderness: There is no abdominal tenderness. Musculoskeletal: Cervical back: Normal range of motion. Right lower leg: No edema. Left lower leg: No edema. Lymphadenopathy: Cervical: No cervical adenopathy. Skin: General: Skin is warm and dry. Capillary Refill: Capillary refill takes less than 2 seconds. Neurological: General: No focal deficit present. Mental Status: She is alert and oriented to person, place, and time. Psychiatric: Mood and Affect: Mood normal. Behavior: Behavior normal. Meds Current Outpatient Medications: atorvastatin (LIPITOR) 10 mg tablet, Take 1 tablet (10 mg total) by mouth in the morning., Disp: 90tablet, Rfl: 2 CEPHalexin (KEFLEX) 250 mg capsule, TAKE 1 CAPSULE BY MOUTH ON MON, MON, AND FRI, Disp: , Rfl: KLOR-CON/EF 25 mEq disintegrating tablet, , Disp: [...] the morning., Disp: 90 tablet, Rfl: 2 Lab Results Office Visit on 04/08/2025 Component Date Value Ref Range Status External Poct Hgb A1C 04/08/2025 5.9 4 - 7 % Final Other Testing No results found. Return in about 1 year (around 04/08/2026) for Annual physical. Logan AGUILAR [facility] Office: [phone] This note is dictated with the use of M*Modal. Please note that this dictation was completed with computer voice recognition software. Quite often unanticipated grammatical, syntax, homophones, and other interpretive errors are inadvertently transcribed by the computer software. Please disregard these errors. Please excuse any errors that have escaped final proofreading. JEFF Orr 04/08/25 1622 documented in this encounter Plan of Treatment DateTypeDepartmentCare Team (Latest Contact Info)Mpbyyymamyv14/13/2026 3:00 PM EDTOffice Visit [facility] [address] [place] [phone] Logan Lombardi APRN-CNP [address] [facility] [address] [place] [id number] NameTypePriorityAssociated DiagnosesOrder ScheduleThyroid profile includes TSH LH0YkzBesnpua Blood tests for routine general physical examination 1 Occurrences starting 04/08/2025 until 04/08/2026Lipid profileLabRoutine Blood tests for routine general physical examination 1 Occurrences starting 04/08/2025 until 04/08/2026omprehensive metabolic panel LabRoutine Blood tests for routine general physical examination 1 Occurrences starting 04/08/2025 until 04/08/2026BC without diffLabRoutine Blood tests for routine general physical examination 1 Occurrences starting 04/08/2025 until 04/08/2026NameTypePriorityAssociated DiagnosesOrder ScheduleProMedica Physician's RAIL CAR PAINTER/SANDBLASTER - [facility] - [place], [place] - ConsultOutpatient ReferralRoutine Adult wellness visit 1 Occurrences starting 04/08/2025 until 04/08/2026documented as of this encounter Procedures Procedure NamePriorityDate/TimeAssociated DiagnosisCommentsPOCT HEMOGLOBIN A1C Yucjach8004/08/2025 3:58 PM EDT Screening for diabetes mellitus documented in this encounter Results * POCT Hemoglobin A1c (04/08/2025 3:58 PM EDT)ComponentValueRef RangeTest Method Analysis TimePerformed AtPathologist SignatureExternal Poct Hgb A1C5.94 - 7 % MANUALLY TRANSCRIBED RESULTSSpecimen (Source)Anatomical Location / Laterality Collection Method / VolumeCollection TimeReceived FznqVwfpz18/21/2025 3:58 PM EDT Narrative Authorizing ProviderResult TypeResult StatusLogan Lombardi AUTOMATIC SEAMER-CNPPOINT OF CARE TEST ORDERABLESFinal ResultPerforming OrganizationAddressCity/State/ZIP Code Phone Number MANUALLY TRANSCRIBED RESULTS documented in this encounter Visit Diagnoses Diagnosis Adult wellness visit- Primary Blood tests for routine general physical examination Laboratory examination ordered as part of a routine general medical examination Screening for diabetes mellitus documented in this encounter Additional Health Concerns AssessmentNoted TimePHQ-9 Depression Total Score: 3:43 PM EDTA Body Mass Index follow-up plan has been documented for the pyxrqef1804/04/2024 3:59 PM EDTdocumented as of this encounter Care Teams Team MemberRelationshipSpecialtyStart DateEnd Date Logan Lombardi, AUTOMATIC SEAMER-CARDIOPULMONARY TECHNOLOGIST CHIEF [address] [place] [address] PCP - GeneralInternal Medicine01/20/25documented as of this encounter
--- OUTSIDE RECORDS SUMMARY | 2025-04-17 12:26 | XMS_ITS | Continuity of Care Document ---
Author Organization [facility] Address [address] [place] [address] Phone Care Team Providers Care Ultrasonographer Name Role Phone Ambreen Dumont NP-C Primary Care Provider + Viktoria Mckeon APRN Attending Provider Care Teams Patient Care Team Team Status: Active Member Role/Relationship Status Dates Ambreen Dumont NP-Amber Primary Care Provider Active Visit Care Team Team Status: Inactive Member Role/Relationship Status Dates Ambreen Dumont NP-C Primary Care Provider Active Start: January 30, 2025 End: January 30, 2025Marguerite Chowdary ProviderActiveStart: January 30, 2025 End: January 30, 2025 Patient Care Team Team Status: Inactive Member Role/Relationship Status Dates Ambreen Dumont NP-Amber Primary Care Provider Active Start: April 17, 2025 End: April 17, 2025Marguerite Chowdary ProviderActiveStart: April 17, 2025 End: April 17, 2025 Chief Complaint and Reason for Visit Chief Complaint Admit Date 8 week January 30, 2025 3: 01pm WMN f/u April 17, 2025 3 :18pm Reason for Visit Admit Date BMI 29.0-29.9,adult January 30, 2025 3: 01pm Family history of diabetes mellitus (DM) January 30, 2025 3:01pm Hyperlipemia January 30, 2025 3: 01pm Hypothyroidism January 30, 2025 3: 01pm Obesity January 30, 2025 3: 01pm Prediabetes January 30, 2025 3: 01pm Vitamin B 12 deficiency January 30 3:01pm Vitamin D deficiency January 30, 2025 3 :01pm BMI 29.0-29.9,adult April 17, 2025 3 :18pm Family history of diabetes mellitus (DM) April 17, 2025 3:18pm Hyperlipemia April 17, 2025 3 :18pm Hypothyroidism April 17, 2025 3 :18pm Obesity April 17, 2025 3 :18pm Prediabetes April 17, 2025 3 :18pm Vitamin B 12 deficiency April 17 3:18pm Vitamin D deficiency April 17, 2025 3:18pm Allergies, Adverse Reactions, Alerts Allergen Type Severity Reaction Last Updated Verified Status azithromycin Allergy Unknown Gastrointestina l Upset, vomiting loose stools April 17, 2025 3:27pm Yes Active Sulfa (Sulfonamide Antibiotics) Allergy Unknown Rash, hives April 17, 2025 3:27pm Yes Active Social History Smoking Status Status Start Date End Date Date of Observa tion Ex-smoker (finding) January 30, 2025 3:18pm Observation Status Observation Response Date of Response Legal Sex [facility] (finding) [facility] Family History Relationship Condition Age at Onset Recorded Date/T katlyn father Malignant neoplasm of prostate Unknown History of heart surgeryUnknownHistory of heart valve replacementUnknown Malignant neoplasmUnknownHeart diseaseUnknownDementiaUnknownmotherMyasthenia gravisUnknown Problems Active Problems Problem Diagnosis/Recorded Date Onset Date Status C omments Vitamin B 12 deficiency October 10, 2023 3:48pm Unknown Active Family history of diabetes mellitus (DM)August 08, 2023 7:05amUnknownActive HyperlipemiaFebr2022 10:11amUnknownActiveHypothyroidismJanuary 2023 4:55pmUnknownActiveAcute postoperative painJanuary 2023 9:31amUnknown ActiveBMI 28.0-28.9,adultFebruary 2023 7:05amUnknownActiveBMI 29.0-29.9,adultApril 2023 3:47pmUnknownActivePrediabetesFebruary 2023 7:06amUnknownActiveVitamin D deficiencyFebruary 2023 7:06amUnknown ActiveVitamin D deficiency suspected. Vitamin D has been noted to have positive impact on mood and energy. We can recheck periodically and make recommendations for long-term supplementation with dbkm-rky-mxmjsxk formulations or prescription grade repletion.ObesityFebruary 2023 7:02amUnknownActive Medications Medication Status Dose Units Route Directions Qty Days Refills S tart Date Stop Date End Date Reason(s) Instructions Adherence Metformin 500 mg tablet extended release 24 hr Discont inued 0 .ROUTE.[id number] 2023 1:48pmApril 2023 3:17pmTAKE 2 TABLETS BY MOUTH TWICE A DAY WITH BREAKFAST AND DINNERMetformin 500 mg tablet extended release 24 hrDiscontinued0.ROUTE.HXGJOUE1901Bowxb 2023 3:17pmMay 2023 12:54pmtake 2 tablets by mouth twice a day WITH BREAKFAST AND DINNERMetformin 500 mg tablet extended release 24 hrDiscontinued0.ROUTE.EAKTCBN0417Vxx 2023 12:54pmSeptember 2023 3:45pmtake 2 tablet by mouth twice a day with BREAKFAST AND DINNERPhentermine 15 mg fooajltPucfjgasmjyx92YOCVGrkbu15651Lrzj 2023 8:04amJuly 2023 3:43pmObesity Obesity, unspecifiedAtorvastatin 10 mg kbjhawRmwqqy56HVGZMfqgw morningFebruary 2022 1:00amComplies with drug therapyOxybutynin Chloride 10 mg tablet extended release 20uoYlzynp05NTLPMmdey morningFebruary 2022 1:00amComplies with drug therapySertraline 100 mg oveqqeByzbry994UVXMXzbod morningFebruary 2022 1:00amComplies with drug therapyLevothyroxine 50 mcg cwewwrCnnqbs91 MCGPOEvery morningFebruary 2022 1:00amComplies with drug therapyPotassium Bicarb-Citric Acid (Klor-Con/Ef) 25 mEq tablet, nriyktxjxhogEnyeik00NWPZIRfxcd dailyFebruary 2022 1:00amComplies with drug therapyIbuprofen 800 mg tablet Naigrqgupiwv464HOIARbdl times daily as needed for niqp338Adnxtdsv 2022 1:00amJanuary 2023 4:48pmCephalexin 500 mg glbqsvgIbidypqxbxyy859YPWXA2P018 0February 2022 1:00amJanuary 2023 4:54pmMultivitamin GjhylwTtsfsi7PBE POEvery morningJanuary 2023 1:00amComplies with drug therapyGlucosamine Sulfate (Glucosamine) 500 mg KnryqaMaytqq622VDVWEhqye dailyJanuary 2023 1:00amComplies with drug therapyCalcium Carbonate-Vitamin D3 600 mg-5 mcg (200 unit) OrccwlTxryob2WJRTADeioj at bedtimeJanuary 2023 1:00amComplies with drug therapyMetformin 500 mg tablet extended release 24 zvGbrxzkfgukxp7538SAYW Twice dailyJanuary 2023 1:00amMarch 2023 1:48pmweight lossLiraglutide (Victoza 3-Julius) 0.6 mg/0.1 mL (18 mg/3 mL) pen injectorDiscontinued1.2MGSUBCUT Every morningJanuary 2023 1:00amApril 2023 3:27pmweight loss Lactobacillus Acidophilus (Probiotic) 10 billion cell ShnxseqOkfzbw52IGHWOPKzswm morningJanuary 2023 1:00amComplies with drug therapyMagnesium Glycinate 100 mg magnesium IdvgsqlTamhunyualpy5588KBFJZetsw at bedtimeJanuary 2023 1:00am October 10, 2023 3:27pmCephalexin 500 mg sipgyriHzzdrpckmwwi262LBNIAfbsb daily June 22, 2023 4:54pmApril 2023 3:26pmHydrocodone-Acetaminophen 5-325 mg bxuexfCsyirsbmnycg1QXTVZU2E as needed for hyzf1574Tiaurwz pril 2023 3:26pmAcute postoperative pain Other acute postprocedural painMagnesium Gluconate 30 mg (550 mg) xbqmqaVbidiu41 MGPODailyApril 2023 12:00amComplies with drug therapyPhentermine 15 mg tiwjnlmOethxesknjyr56NIFBZfryf73677Bkpmi 2023 12:00amJune 2023 8:05amObesity Obesity, unspecifiedPhentermine 15 mg mwynyixOgeuzwtidqii35SUOGSsxsy68185Ztye 2023 3:42pmSeptember 2023 3:45pmObesity Obesity, unspecifiedPhentermine 37.5 mg upbcnccTsfaogchfgwb98.5OGHRRqmjr49436 October 08, 2024 3:46pmJune 2024 4:19pmObesity Obesity, unspecifiedPhentermine 37.5 mg dtzhpogPaqvgdetlrcg82.7EBOFLcknw03709 December 03, 2024 4:18pmAugust 2024 4:00pmObesity Obesity, unspecifiedMetformin 500 mg tablet extended release 24 hrActive0.ROUTE .YDBHEJY2779Emkq 2024 4:19pmtake 2 tablet by mouth twice a day with BREAKFAST AND DINNERComplies with drug therapyPhentermine 37.5 mg capsule Ekgwstrggxbr30.9BHRFVvjpf73030Nooipa 2024 4:00pmOctober 2024 3:29pm Obesity Obesity, unspecifiedMetformin 500 mg tablet extended release 24 hrDiscontinued0 .ROUTE.BMYLVTN2405Epszywfky 2023 3:44pmNovember 2023 5:14pmtake 2 tablet by mouth twice a day with BREAKFAST AND DINNERPhentermine 15 mg capsule Ztvsxbotazue07QGGGPeddm49799Orkdwfyuf 2023 3:45pmNovember 2023 5:14pmObesity Obesity, unspecifiedDexamethasone 1 mg mhrlmjZzxmdujwweab7TGIXBwtls99Kwpganoh 14th, 2024 1:00amDecember 2023 3:11pmPhentermine 15 mg capsuleDiscontinued 15WWFOSaske98991Iqvfysfk 2023 5:14pmDecember 2023 3:55pmObesity Obesity, unspecifiedMetformin 500 mg tablet extended release 24 hrDiscontinued0 .ROUTE.MBAMQFL1104Dohtjwlh 2023 5:14pmFebruary 2024 6:24pmtake 2 tablet by mouth twice a day with BREAKFAST AND DINNERPhentermine 15 mg capsule Kmegamtnyhey80ZOWKEtyze21633Zqekqzpr 23rd, 2024 3:52pmFebruary 2024 6:24pm Obesity Obesity, unspecifiedPhentermine 15 mg ifyiqexInhrxuzkbtia00IWUBDfhfv40406 August 06, 2024 6:23pmApril 2024 3:57pmObesity Obesity, unspecifiedMetformin 500 mg tablet extended release 24 hrDiscontinued0 .ROUTE.LBWXRBQ9036Zqnyfjto 2024 6:23pmJune 2024 4:20pmtake 2 tablet by mouth twice a day with BREAKFAST AND DINNERPhentermine 37.5 mg tabletActive 18.75MGPODailyOctober 2024 12:00ammust administer 30 minutes before or 1-2 hours after breakfastComplies with drug therapyPhentermine 37.5 mg capsuleActive 0PODailyOctober 2024 3:28pmObesity Obesity, unspecified1/2 tab orally daily;Unknown Immunizations Immunization Event Date Not Given Reason Dose Number Filament Shaper Lot Number Reason(s) Given Vaccine Information Statement (VIS) Detail Administration Location COVID-19 mRNA, Comirnaty (Uvinum) September 21 COVID-19 mRNA, Comirnaty (Uvinum)October 19, 2020 Vital Signs Vital Reading Result Reference Range Collection Date/Time Height 66.93 [in_i] January 30, 2025 3:81bxSfidks44.55 kgAugust 2024 3:10pmHeart Rate85 /min 60-100August 2024 3:10pmRespiratory rate18 /ktb56-49Fouila 2024 3:10pmOxygen saturation by Pulse wpquxgdi06 %95-100Augus2024 3:10pmBP Lfcdumgj578 mm[Hg]100-140August 2024 3:10pmBP Iruuncrzg53 mm[Hg]60-100 January 30, 2025 3:10pmBMI (Body Mass Index)27.1 kg/h2Ryshtc 2024 3:10pm Iltime37.97 [in_i]April 17, 2025 3:86bxTcphpx21.75 kgOctober 2024 3:21pmHeart Rate80 /fni29-508Vkjtuva 30th, 2025 3:21pmRespiratory rate18 /min 12-24Oct2024 3:21pmOxygen saturation by Pulse wkziofmr83 %95-100 April 17, 2025 3:21pmBP Cqtgmzve558 mm[Hg]100-140[facility] 2024 3:21pmBP Zkbcqzkdx58 mm[Hg]60-100[facility] 2024 3:21pmBMI (Body Mass Index)27.6 kg/z9Qwegbfb 2024 3:21pm Advance Directives Advance Directive Response Recorded Date/ Time Advance Directives No April 13, 2017 1:07pm Insurance Providers Guarantor Nicolette Evangelista Address [address] [facility] [id number] Info.Home Phone: Payer Group Member ID Coverage Type Subscriber Relationship to Subscriber Effective Date Expiration Date O Id: [id number] J Jackson Id: [id number] [address] [facility] [address] Home Phone: Email: [email or web address] Encounters Encounter Location(s) Arrival/Admit Date Discharge/Departure Date Discharge/Departure Disposition Provider(s) Departed Physician/ Provider Office Visit -[facility] January 30, 2025 3:01pm January 30, 2025 11:59pm Discharged to home care or self care (routine discharge) Viktoria Mckeon APRN Departed Physician/ Provider Office Visit -[facility] April 17, 2025 3:18pm April 17, 2025 4:25pm Discharged to home care or self care (routine discharge) Viktoria Paigematt , ROUTE MANAGER Recent Diagnosis Onset Date Admit Date BMI 29.0-29.9,adult Unknown January 30, 2025 3:01pm Family history of diabetes mellitus (DM) Unknown January 30, 2025 3:01pm Hyperlipemia Unknown January 30 3:01pm Hypothyroidism Unknown January 30 3:01pm Obesity Unknown January 30 3:01pm Prediabetes Unknown January 30 3:01pm Vitamin B 12 deficiency Unknown January 172024 3:01pm Vitamin D deficiency Unknown January 3:01pm BMI 29.0-29.9,adult Unknown March 3:18pm Family history of diabetes mellitus (DM) Unknown April 17, 2025 3:18pm Hyperlipemia Unknown April 17 3:18pm Hypothyroidism Unknown April 17 3:18pm Obesity Unknown April 17 3:18pm Prediabetes Unknown April 17 3:18pm Vitamin B 12 deficiency Unknown April 17, 2025 3:18pm Vitamin D deficiency Unknown March 3:18pm Assessments Diagnosis Onset Date Resolution Status Admit Date BMI 29.0-29.9,adult acuteAugus2024 3:01pmFamily history of diabetes mellitus (DM)acuteAugust 2024 3:01pmHyperlipemiaacuteAugus2024 3:01pmHypothyroidismacute January 30, 2025 3:01pmObesityacuteAugust 2024 3:01pmPrediabetesacute January 30, 2025 3:01pmVitamin B 12 deficiencyacuteAugus2024 3:01pm Vitamin D deficiencyacuteAugust 2024 3:01pmBMI 29.0-29.9,adultacuteOctober 2024 3:18pmFamily history of diabetes mellitus (DM)acuteOctober 2024 3:18pmHyperlipemiaacuteOctober 2024 3:18pmHypothyroidismacuteOctober 2024 3:18pmObesityacuteOctober 2024 3:18pmPrediabetesacuteOctober 2024 3:18pmVitamin B 12 deficiencyacuteOctober 2024 3:18pmVitamin D deficiencyacuteOctober 2024 3:18pm Plan of Treatment Author Viktoria Mckeon [facility]Authored[facility]24 3:05pm01/30/2025 returns for weight management follow-up. Feels her nutritional effort is excellent since her last visit. She is logging and is helping her keep in control. She reports her greatest struggle with sweets. She does struggle with sleep she feels that she is having some menopausal symptoms. We did check her cortisol levels with a DST and the results were equivocal she defers repeat at this time the constellation was history of DVT random, regular menses, kidney stones, brain fog, chin here, weight and purple striae. She is tolerating metformin 500 mg 2 twice daily and doing well on phentermine without any palpitations, some minor dry mouth. Her mood today is good. 12/03/2024 returns for weight management follow-up. Feels her nutritional effort is good . She feels good about her portions. She does still struggle at times with sweets. She is doing weights and cardio 5 times per week. She is tolerating phentermine 37.5 mg subcu daily and metformin 500 mg 2 tabs twice a day. No side effects with the phentermine except for some dry mouth occasionally. She did self consult to 2 plastic surgeons, they did discuss sebastian gamino and its benefits. Gtf-zj-momise cost is concerning to patient around $12,000 without medical indication. Her mood today is good. She is concerned about her abdominal weight and inability to reduce. She feels that this weight distribution is since chemotherapy and menopause. She denies bloating gas constipation or nausea. No changes in stools, normal bowel movements. We did pursue cortisol testing in April was essentially normal, subclinical hypercortisolism has equivocal range, could repeat in 3-month Overall she is happy with her weight trajectory but not morphology. She is interested in seeing plastic surgery and she will self refer to Jennifer Lua who did breast after breast cancer diagnosis. To make further recommendations. Highest Weight: 198 lbs, 200.4 pounds first visit Program Starting Date/Weight: 11/09/2022 /200.4 lbs Current Weight: 179.2 lbs +/-: Down 0.6 lbs since last visit , down 21.8 lbs form start/high weight. Current Weight: 173.2 lbs +/-: down 1.1 lbs since last visit, down 27.2 lbs from original start and high weight. Self-imposed goal of weight stability. Concerned with midabdominal weight distribution, unable to reduce, cortisol equivocal. Consulted Scar and Madyson for abdominoplasty recommendations. Baseline body comp date: 10/08/2024 /due again q visit or with precipitous gain or loss Hx Victoza for 4 mos, coverage ceased, metformin with addition of phentermine 09/2023 Started phentermine October 10, 2023 at 194 pounds. 5% weight loss was 9.7 pounds, she has exceeded the weight 184.3 pound weight loss goal Breast cancer history, history of nontoxic goiter, papillary thyroid cancer, NHL, ?thymus cancer age 11. hypothyroidism, kidney stones , continues with prediabetes per her report on recent labs despite weight loss, recent Victoza and current metformin GOAL WEIGHT STABILITY, consider titration off of phentermine when prolonged weight stability. considering plastics for, implications with body morphology, expectation She did self consult to 2 plastic surgeons, they did discuss sebastian gamino and its benefits. Wxy-dk-ijqnns cost is concerning to patient around $12,000 without medical indication. Baseline body composition today discussed Could repeat DST 6 months, cortisol 1.1 with adequate dexamethasone. continue phentermine 37.5 mg daily continues to make good salo effort and is losing weight, feels more focused, appetite under control an using LoseIt silva. Continues to make good salo effort. Should notify immediately if any palpitations, anxiety. Continue Metformin 500 mg 2 twice daily considering reduction and elimination of phentermine when optimal BMI met and showing stability. 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 Right inferior thyroid lobe partial resection benign thyroid parenchyma with nodular hyperplasia. Report scanned- Cannot get GLP1RA covered previously on Victoza, defers compounded semaglutide for now, discussed. discussed hx breast cancer, early NHL diagnosis, chart reads thymus cancer- mother with myasthenia gravis in treatment CORTISOL DST--done-- does not exhibit overt hypercortisolism. Constellation abdominal weight distribution, chronic depression, hx stress fractures bilateral ankles (concomitant low calcium at the time with breast CA treatment), history of purple striae, prediabetes despite weight loss, metformin and use of GLP. Discussed cannot spot reduce ie abdominal weight distribution. Could focus on core training, but may not change morphology-- could consider Plastics or thermogenic treatment Saw Felix in past. RMR 1559 kcal continue [employer] silva for tracking-- tracking and taking in about 1200 calories per day despite moderate exercise 6 days per week. ENCOURAGE F/U with RD RTC 8 weeks-- phentermine Author [facility] CenterAuthoredOcthazard [facility] 2024 3:35pm01/30/2025 returns for weight management follow-up. Feels her nutritional effort is excellent since her last visit. She is logging and is helping her keep in control. She reports her greatest struggle with sweets. She does struggle with sleep she feels that she is having some menopausal symptoms. We did check her cortisol levels with a DST and the results were equivocal she defers repeat at this time the constellation was history of DVT random, regular menses, kidney stones, brain fog, chin here, weight and purple striae. She is tolerating metformin 500 mg 2 twice daily and doing well on phentermine without any palpitations, some minor dry mouth. Her mood today is good. 12/03/2024 returns for weight management follow-up. Feels her nutritional effort is good . She feels good about her portions. She does still struggle at times with sweets. She is doing weights and cardio 5 times per week. She is tolerating phentermine 37.5 mg subcu daily and metformin 500 mg 2 tabs twice a day. No side effects with the phentermine except for some dry mouth occasionally. She did self consult to 2 plastic surgeons, they did discuss tumzeinab gamino and its benefits. Rav-sb-cnlgmk cost is concerning to patient around $12,000 without medical indication. Her mood today is good. She is concerned about her abdominal weight and inability to reduce. She feels that this weight distribution is since chemotherapy and menopause. She denies bloating gas constipation or nausea. No changes in stools, normal bowel movements. We did pursue cortisol testing in April was essentially normal, subclinical hypercortisolism has equivocal range, could repeat in 3-month Overall she is happy with her weight trajectory but not morphology. She is interested in seeing plastic surgery and she will self refer to Jennifer Lua who did breast after breast cancer diagnosis. To make further recommendations. Highest Weight: 198 lbs, 200.4 pounds first visit Program Starting Date/Weight: 11/09/2022 /200.4 lbs Current Weight: 179.2 lbs +/-: Down 0.6 lbs since last visit , down 21.8 lbs form start/high weight. Current Weight: 173.2 lbs +/-: down 1.1 lbs since last visit, down 27.2 lbs from original start and high weight. Self-imposed goal of weight stability. Concerned with midabdominal weight distribution, unable to reduce, cortisol equivocal. Consulted Scar and Madyson for abdominoplasty recommendations. Baseline body comp date: 10/08/2024 /due again q visit or with precipitous gain or loss Hx Victoza for 4 mos, coverage ceased, metformin with addition of phentermine 09/2023 Started phentermine October 10, 2023 at 194 pounds. 5% weight loss was 9.7 pounds, she has exceeded the weight 184.3 pound weight loss goal Breast cancer history, history of nontoxic goiter, papillary thyroid cancer, NHL, ?thymus cancer age 11. hypothyroidism, kidney stones , continues with prediabetes per her report on recent labs despite weight loss, recent Victoza and current metformin GOAL WEIGHT STABILITY, consider titration off of phentermine when prolonged weight stability. considering plastics for, implications with body morphology, expectation She did self consult to 2 plastic surgeons, they did discuss tummy tuck and its benefits. Bmf-yl-wwddjk cost is concerning to patient around $12,000 without medical indication. Baseline body composition today discussed Could repeat DST 6 months, cortisol 1.1 with adequate dexamethasone. continue phentermine 37.5 mg daily continues to make good salo effort and is losing weight, feels more focused, appetite under control an using [employer]Now silva. Continues to make good salo effort. Should notify immediately if any palpitations, anxiety. Continue Metformin 500 mg 2 twice daily considering reduction and elimination of phentermine when optimal BMI met and showing stability. 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 Right inferior thyroid lobe partial resection benign thyroid parenchyma with nodular hyperplasia. Report scanned- Cannot get GLP1RA covered previously on Victoza, defers compounded semaglutide for now, discussed. discussed hx breast cancer, early NHL diagnosis, chart reads thymus cancer- mother with myasthenia gravis in treatment CORTISOL DST--done-- does not exhibit overt hypercortisolism. Constellation abdominal weight distribution, chronic depression, hx stress fractures bilateral ankles (concomitant low calcium at the time with breast CA treatment), history of purple striae, prediabetes despite weight loss, metformin and use of GLP. Discussed cannot spot reduce ie abdominal weight distribution. Could focus on core training, but may not change morphology-- could consider Plastics or thermogenic treatment Saw Felix in past. RMR 1559 kcal continue [employer] silva for tracking-- tracking and taking in about 1200 calories per day despite moderate exercise 6 days per week. ENCOURAGE F/U with RD RTC 8 weeks-- phentermine Future Tests Future scheduled test information is unavailable Pending Tests Test Name Ordered Date Scheduled Date Comprehensive Metabolic Panel April 17, 2025 3:59pm Future Visits Future appointment information is unavailable Future Procedures Procedure Name Ordered Date Scheduled Date Vitamin B12 April 17, 2025 3:59pm Lipid PanelOctober 2024 3:59pmVitamin D 25 Hydroxy TotalOctober 2024 3:59pm Future Medications Future medication information is unavailable Patient Instructions Patient instructions are unavailable
--- OUTSIDE RECORDS SUMMARY | 2025-04-19 07:25 | XMS_ITS | CCD ---
Author Organization [facility] Care Team Providers Care Graduate Research Assistant Name Role Phone MUSA EVANGELISTA Primary Care Physician DO Musa Evangelista Primary Care Provider [phone] MD Tsering Velez Attending Provider VIKTROIA BIRMINGHAM Admitting Unavailable JEAN CARLOS, DR VIGIL Primary Care Unavailable VIKTORIA BIRMINGHAM Attending Unavailable VIKTORAI BIRM[place]AM Consulting Unavailable JEAN CARLOS, DR VIGIL [...] Primary Care Provider GE[place] Attending Provider DO Chava Crowe Attending Provider Viktoria [place] Admitting Unavailable Viktoria [place] Attending Unavailable Musa Evangelista Primary Care Unavailable ViscChava merino Admitting Unavailable Viscangelique, Chava Attending Unavailable Musa Evangelista Primary Care Unavailable Viscangelique, Chava Admitting Unavailable Viscangelique, Chava Attending Unavailable Musa Evangelista Primary Care Unavailable Marshall ESPARZA Attending Unavailable Marshall ESPAZRA Attending Unavailable BERNADETTE HAYES Attending Unavailab Marshall Mina Referring Unavailable BERNADETTE HAYES Attending Unavailab BERNADETTE Silverio Attending Unavailab BERNADETTE Silverio Admitting Unavailab BERNADETTE Silverio Attending Unavailab le ESPARZA, Marshall R Admitting Unavailable ESPARZA, Marshall R Attending Unavailable ESPARZA, Marshall R Admitting Unavailable ESPARZA, Marshall R Attending Unavailable ESPARZA, Marshall R Attending Unavailable ESPARZA, Marshall R Attending Unavailable ESPARZA, Marshall R Attending Unavailable HENOK DUMONT Primary Care Physician Tim DIE PRESSER-Henok TOURE Primary Care Provid er Tsering Velez MD Unavailable [phone] Unallocated , Suzans Provider Primary Care Provi renetta Indira Lua Attending Unavailable Tim DIE PRESSER-Henok TOURE Primary Care Provid er HENOK DUMONT Primary Care Unavailable Marshall ESPARZA Attending Unavailable JOSELYN HAYES Admitting Unavailable JOSELYN HAYES Attending Unavailable HENOK DUMONT Primary Care Unavailable HENOK DUMONT Primary Care Physician HENOK DUMONT Primary Care Unavailable Marshall ESPARZA Attending Unavailable Tim DENTAL LABORATORY SUPERVISOR-CHenok Primary Care Provider Viktoria [place] APRN Attending Provider Maria C HO-Logan TOURE Primary Care Provider TSERING VELEZ Attending Unavailable LUCILA RAUSCH Attending Unavailable FRANCO WHITMORE Referring Unavailable ANDRAEY, JENNIE Attending Unavailable GARYSFRANCO L Referring Unavailable KELSHEYYJENNIE Attending Unavailable YUHASFRANCO L Referring Unavailable KELSHEYY, JENNIE Attending Unavailable YUHAS FRANCO L Referring Unavailable RUT CHANDLER Attending Unavailable YUHASFRANCO L Referring Unavailable LUCILA RAUSCH Attending Unavailable VALARIEHAS FRANCO L Referring Unavailable KELSHEYY, JENNIE Attending Unavailable GARYS FRANCO L Referring Unavailable AUNG DAY Referring Unavailable AUNG DAY Attending Unavailable AUNG DAY Attending Unavailable Tim DENTAL LABORATORY SUPERVISOR-CHenok Primary Care Provider Viktoria [place] APRN Attending Provider Unavailable Unavailable Unavailable Allergies Allergy ClassificationReported Allergen(s)Allergy TypeDate of OnsetReaction(s) Facility (20 sources)Azithromycin; Translations: [azithromycin]Drug Hqnnvkd56-28-1210 Vomiting (disorder), Diarrhea (finding), Diarrhea, Vomiting, UnknownExecutive [facility]rology of [facility] (16 sources)Sulfamethoxazole; Translations: [sulfamethoxazole]Drug AllergyHives [facility] (20 sources)Sulfonamides (Antibiotic); Translations: [Sulfa (Sulfonamide Antibiotics)]Allergy to lehczurjy78-75-4457[facility]deQzslgyjdv[facility] (5 sources)Azithromycin; Translations: [Zithromax]Drug AllergyThe [facility] (2 sources)Sulfonamides (Antibiotic)Drug allergy (disorder)[facility] (20 sources)Substance with sulfonamide structure and antibacterial mechanism of action (substance)Drug utjnkfg26-75-9277stiucQZBP [facility] (1 source)AzithromycinDrug Eqfmfpv57-61-8971YccgefyrfSum[facility] (20 sources)SulfanilamideAllergy to oifuxqxok75-33-9624VhusjgwWNKC [facility] (1 source)Cephalosporins (Antibiotic)Drug Mqnhzkh35-38-3313ZzdAsjwpq [facility] Medications Current Medications MedicationDrug Class(es)DatesSig (Normalized)Sig (Original)0.5 ML semaglutide 0.5 MG/ML Auto-Injector [Wegovy] (6 sources)Start: 12-23-8896Wqrrl: 71-37-1160obhkqr 0.5 mL by subcutaneous injection every weekWegovy 0.25 MG/0.5ML 0.5 mL Subcutaneous weekly for 30 days Dec, Activeinject 0.5 mL by subcutaneous injection every weekWegovy 0.25 MG/0.5ML 0.5 mL Subcutaneous weekly for 30 days NOT COVERED Activeatorvastatin 10 mg oral tablet (20 sources)HMG-CoA Reductase InhibitorStart: 07-29-2022 End: 19-40-7706enba 1 tablet by mouth once daily in the morningAtorvastatin 10 mg tablet Active 10 MG PO Every morning July 29, 2022 1:00am Complies with drug therapyStart: 08-03-1979ectqtzkqtsyp Oral, Daily, Refills(s) 0 Start Date: 06/20/19 Status: Ordered Repeat number: 1Start: 03-11-3261wmcknkvzsqzz Oral, Daily, Refills(s) 0 Start Date: 06/20/19 Status: OrderedCalcium (13 sources)Phosphate Binder, CalciumStart: 21-69-4211Qdopdrn 600+D Oral, BID, Refill(s) 0, Prophylaxis Start Date: 05/16/11 Status: Ordered Repeat number: 1 Start: 17-61-7264Qoxncwd 600+D Oral, BID, Refill(s) 0, Prophylaxis Start Date: 05/16/11 Status: Orderedcalcium carbonate 1500 mg / cholecalciferol 200 unt oral tablet (13 sources)Vitamin DStart: 96-70-0673oqsj 1 tablet by mouth once daily at bedtimeCalcium Carbonate-Vitamin D3 600 mg-5 mcg (200 unit) Tablet Active 1 TAB PO Daily at bedtime June 22, 2023 1:00am Complies with drug therapy cephalexin 250 mg oral capsule (20 sources)Cephalosporin AntibacterialStart: 06-04-2024 End: 79-15-9620Arklns 250 mg Cap 250 mg = 1 cap(s), Oral, MonWedFri, # 39 cap(s), Refills(s) 3, Pharmacy: [facility]/pharmacy #[id number], 172, cm, 05/23/24 15:14:00 EST, Height/Length Dosing, 85, kg, 05/23/24 15:14:00 EST, Weight Dosing Start Date: 06/04/24 Stop Date: 05/27/25 Status: Ordered Quantity: 39.0 Unit: cap(s) Repeat number: 4Start: 11-07-2023 End: 83-74-8878vfsd 1 capsule by mouth twice dailyKeflex 500 mg Cap 500 mg = 1 cap(s), Oral, BID, X 14 day(s), # 28 cap(s), Refills(s) 0, [id number], 172, cm, 11/07/23 15:26:00 EDT, Height/Length Dosing, 84, kg, 11/07/23 15:26:00 EDT,Weight Dosing Start Date: 11/07/23 Stop Date: 11/21/23 Status: Ordered Start: 11-07-2023 End: 84-99-9734kdqskxpero (Keflex) 250 MG capsule 07/20/2024 ActiveStart: 06-22-2023 End: 90-51-3731eood 1 capsule by mouth twice dailyCephalexin 500 mg capsule Discontinued 500 MG PO Twice daily June 22, 2023 4:54pm October 10, 2023 3:26pmStart: 31-62-7612mewn 1 tablet by mouth twice daily, then take 1 tablet by mouth once dailycephalexin 500 mg oral tablet See Instructions, Take one tab, twice a day for 2 weeks, then take one tab daily for 1 month., # 58 tab(s), Refills(s) 0, Pharmacy: [facility] #[id number], 172, cm,06/20/23 15:54:00 EST, Height/Length Dosing, 84, kg, 06/20/23 15:54:00 EST, Weight Dosing Start Date: 06/20/23 Status: OrderedStart: 07-29-2022 End: 46-27-1758hgon 1 capsule by mouth every six hoursCephalexin 500 mg capsule Discontinued 500 MG PO Q6H 28 7 0 July 29, 2022 1:00am June 4:54pmciprofloxacin 500 mg oral tablet (11 sources)Quinolone AntimicrobialStart: 14-46-6454dzrbmjetrsqqh (Cipro) 500 MG tablet 01/13/2025 ActiveStart: 51-37-1004Jnvfu 500 mg Tab 500 mg = 1 tab(s), Oral, As Directed, Pt to take 1 tab the day before procedure and the 2nd tab the day of procedure once completed., # 2 tab(s), Refills(s) 0, Pharmacy: [facility] #[id number], 172, cm, 05/02/23 15:11:00 EST, Height/Length Dosing, 84, kg, 05/02/23 15:11:00 EST, Weight Dosing Start Date: 05/02/23 Status: Ordereddoxycycline hyclate 100 mg oral capsule (3 sources)Tetracycline-class DrugStart: 20-78-5595msca 1 capsule by mouth twice dailydoxycycline hyclate 100 mg Cap 100 mg = 1 cap(s), Oral, BID, # 14 cap(s), Refills(s) 0, Pharmacy: [facility] #[id number], 172, cm, 06/20/23 15:54:00 EST, Height/Length Dosing, 84, kg, 06/20/23 15:54:00 EST, Weight Dosing Start Date: 09/05/23 Status: Orderedglucosamine sulfate 500 mg oral tablet (13 sources)Start: 02-66-9148zzjo 1 tablet by mouth twice dailyGlucosamine Sulfate (Glucosamine) 500 mg Tablet Active 500 MG PO Twice daily June 22, 2023 1:00am Complies with drug therapylactobacillus acidophilus [id number] unt oral capsule (13 sources)Start: 80-94-0376wajh 10 capsules by mouth once daily in the morning Lactobacillus Acidophilus (Probiotic) 10 billion cell Capsule Active 10 CELL PO Every morning June 22, 2023 1:00am Complies with drug therapylevothyroxine sodium 0.05 mg oral tablet (20 sources)l-ThyroxineStart: 07-29-2022 End: 19-52-0095sczc 1 tablet by mouth once daily in the morningLevothyroxine 50 mcg tablet Active 50 MCG PO Every morning July 29, 2022 1:00am Complies withdrug therapyStart: 11-16-4788nspdozaivpntz 50 mcg (0.05 mg) Tab Refills(s) 0 Start Date: 04/24/20 Status: Ordered Repeat number: 1magnesium gluconate 550 mg oral tablet (10 sources)Start: 13-79-2212yeys 1 tablet by mouth once dailyMagnesium Gluconate 30 mg (550 mg) tablet Active 60 MG PO Daily October 10, 2023 12:00am Complies with drug therapyMulti For Her - (9 sources)Multi For Her - as directed Orally ActiveMultivitamin preparation (8 sources)Start: 08-73-3519kknk 1 tablet by mouth once daily in the morning Multivitamin Active 1 TAB PO Every morning June 22, 2023 1:00amStart: 67-44-2775cglu 1 tablet by mouth once daily in the morningMultivitamin Active 1 TAB PO Every morning June 22, 2023 12:00amMultivitamin Tablet (5 sources)Start: 02-19-2344zhpk 1 tablet by mouth once daily in the morning Multivitamin Tablet Active 1 TAB PO Every morning June 22, 2023 1:00am Complies with drug therapyStart: 55-77-7257ufvv 1 tablet by mouth once daily in the morningMultivitamin Tablet Active 1 TAB PO Every morning June 22, 2023 1:00amStart: 10-58-5637eyiu 1 tablet by mouth once daily in the morning Multivitamin Tablet Active 1 TAB PO Every morning June 22, 2023 12:00am24 hr oxybutynin chloride 10 mg extended release oral tablet (20 sources)Cholinergic Muscarinic AntagonistStart: 10-92-3023cprq 1 tablet by mouth every twenty-four hours in the morningoxybutynin XL (DITROPAN-XL) 10 mg 24 hr tablet Take 1 tablet (10 mg total) by mouth in the morning.10/11/2023 Active Start: 09-00-8024waar 1 tablet by mouth once daily in the morningOxybutynin Chloride 10 mg tablet extended release 24hr Active 10 MG PO Every morning July 1:00am Complies with drug therapyphentermine hydrochloride 37.5 mg oral capsule (20 sources)Sympathomimetic Amine AnorecticStart: 03-58-4152pxiq 0.5 tablet by mouth once dailyStart: 00-62-5200Usmiuoeriyv 37.5 mg tablet Active 18.75 MG PO Daily April 17, 2025 12:00am must administer 30 minutes before or 1-2 hours after breakfast Complies with drug therapyStart: 10-08-2024 End: 05-91-7347emgu 1 capsule by mouth once dailyPhentermine 37.5 mg capsule Discontinued 37.5 MG PO Daily January 30, 2025 4:00pm April 17, 2025 3:29pm Obesity Obesity, unspecifiedStart: 83-12-5022qcwkuaegyrv (ADIPEX-P) 37.5 mg tablet Take 1 tablet (37.5 mg total) by mouth. 11/12/2024 ActiveStart: 61-44-2795clli 15 mg by mouth once daily in the morningphentermine 15 mg, Oral, qAM, Refills(s) 0 Start Date: 05/23/24 Status: OrderedStart: 10-10-2023 End: 32-79-7631qiyn 1 capsule by mouth once dailyPhentermine 15 mg capsule Discontinued 15 MG PO Daily 30 30 1 August 06, 2024 6:23pm October 08, 2024 3:57pm Obesity Obesity, unspecifiedPotassium Bicarb-Citric Acid (Klor-Con/Ef) 25 mEq tablet, effervescent (12 sources)Start: 30-77-7517Ykmyivgtx Bicarb-Citric Acid (Klor-Con/Ef) 25 mEq tablet, effervescent Active 25 MEQ PO Twice dailyFebruary 2022 1:00am Start: 95-47-6414Lolgritqk Bicarb-Citric Acid (Klor-Con/Ef) 25 mEq tablet, effervescent Active 25 MEQ PO Twice dailyFebruary 2022 12:00ampotassium bicarbonate 25 meq effervescent oral tablet (20 sources)Start: 58-97-6581Accaxaiie Bicarb-Citric Acid (Klor-Con/Ef) 25 mEq tablet, effervescent Active 25 MEQ PO Twice dailyFebruary 2022 1:00am Complies with drug therapyprobiotic (9 sources)probiotic as directed Activesertraline 100 mg oral tablet (20 sources)Serotonin Reuptake InhibitorStart: 05-16-2011 End: 01-79-4901kqih 1 tablet by mouth once daily in the morningSertraline 100 mg tablet Active 100 MG PO Every morning July 29, 2022 1:00am Complies with drug therapyvalACYclovir 1000 mg oral tablet (3 sources)Herpesvirus Nucleoside Analog DNA Polymerase Inhibitor, Herpes Simplex Virus Nucleoside Analog DNA Polymerase Inhibitor, Herpes Zoster Virus Nucleoside Analog DNA Polymerase InhibitorStart: 11-20-2024 End: 74-68-5032liycaftnpxfv 1 g Tab 1 gm = 1 tab(s), Refills(s) 0 Start Date: 11/25/24 Status: Ordered Repeat number: 1 Completed/Discontinued Medications MedicationDrug Class(es)DatesSig (Normalized)Sig (Original)acetaminophen 325 mg / HYDROcodone bitartrate 5 mg oral tablet (12 sources)Opioid AgonistStart: 07-07-2023 End: 09-13-2181bumj 1 tablet by mouth every six hours as needed for pain Hydrocodone-Acetaminophen 5-325 mg tablet Discontinued 1 TAB PO Q6H as needed for pain 12 3 0 July 07, 2023 October 10, 2023 3:26pm Acute postoperative pain Other acute postprocedural painbetamethasone 3 mg/ml / betamethasone acetate 3 mg/ml injectable suspension (8 sources)CorticosteroidStart: 03-18-2025 End: 09-65-5591viaejhigudzkw acetate-betamethasone sodium phosphate (Celestone) injection 1.5 mLStart: 03-18-2025 End: .5 mL, Intra-articular, Once PRN Procedure, Starting on Mon03/18/25 at 1603, For 1 doseStart: 01-16-2025 End: 01-02-9760qmbmpcnhebhoa acetate-betamethasone sodium phosphate (Celestone) injection 1.5 mLStart: 01-16-2025 End: .5 mL, Intra-articular, Once PRN Procedure, Starting on Mon01/16/25 at 1553, For 1 dosedexamethasone 1 mg oral tablet (5 sources)CorticosteroidStart: 05-02-2024 End: 72-07-5985ooss 1 tablet by mouth once dailyDexamethasone 1 mg tablet Discontinued 1 MG PO Daily May 02, 2024 1:00am June 10, 2024 3:11pmEffer-K 25 mEq oral tablet, effervescent (5 sources)Start: 02-36-2664bsbr 1 tablet by mouth twice dailyEffer-K 25 mEq oral tablet, effervescent 25 mEq = 1 tab(s), Oral, BID, # 60 tab(s), Refills(s) 11, Pharmacy: [facility] #[id number], 172, cm, 02/19/21 8:12:00 EDT, Height/Length Dosing, 84.5, kg, 02/19/21 8:12:00 EDT, Weight Dosing Start Date: 04/26/22 Status: Orderedibuprofen 800 mg oral tablet (14 sources)Nonsteroidal Anti-inflammatory DrugStart: 07-29-2022 End: 98-75-6827voxr 1 tablet by mouth four times daily as needed for pain Ibuprofen 800 mg tablet Discontinued 800 MG PO Four times daily as needed for pain July 29, 2022 1:00am June 22, 2023 4:48pmK-Effervescent 25 mEq oral tablet, effervescent (7 sources)Start: 04-22-2023 End: 88-84-1118yayo 1 tablet by mouth twice dailyK-Effervescent 25 mEq oral tablet, effervescent 25 mEq = 1 tab(s), Oral, BID, X 30 day(s), # 60 tab(s), Refills(s) 11, [id number], 172, cm, 04/27/22 15:12:00 EST, Height/Length Dosing,84, kg, 04/27/22 15:12:00 EST, Weight Dosing Start Date: 04/22/23 Stop Date: 04/16/24 Status: Ordered3 ml liraglutide 6 mg/ml pen injector (20 sources)GLP-1 Receptor AgonistStart: 13-46-8986Nspjmhx 6 mg/mL subcutaneous injection Refills(s) 0 Start Date: 05/02/23 Status: OrderedStart: 02-22-2023 End: 1974Daqioblwrdo (Victoza 3-Julius) 0.6 mg/0.1 mL (18 mg/3 mL) pen injector Discontinued 1.2 MG SUBCUT Every morning June 22, 2023 1:00am October 10, 2023 3:27pm weight lossStart: 06-00-2682icvdjm 0.6 mg by subcutaneous injection once daily, then inject 1.8 mg by subcutaneous injection once daily Victoza 18 MG/3ML 0.6 mg Subcutaneous daily for 30 days increase weekly by 0.6 mg to max dose of 1.8 mg daily Hold escalating for toleration issues and call prescriber for instructions. Jan, Activeinject 1.8 mg by subcutaneous injection once dailyVictoza 18 MG/3ML 1.8 mg Subcutaneous daily for 30 days ActiveMagnesium glycinate (8 sources)Start: 06-22-2023 End: 90-15-1665hcdj 3000 mg by mouth once daily at bedtimeMagnesium Glycinate Discontinued 3000 MG PO Daily at bedtime June 22, 2023 1:00am October 09 3:27pmStart: 56-14-6501taxz 3000 mg by mouth once daily at bedtimeMagnesium Glycinate Active 3000 MG PO Daily at bedtime June 22, 2023 12:00amMagnesium Glycinate 100 mg magnesium Capsule (5 sources)Start: 06-22-2023 End: 90-74-4343hhjt 1 capsule by mouth once daily at bedtimeMagnesium Glycinate 100 mg magnesium Capsule Discontinued 3000 MG PO Daily at bedtime June 22 024 1:00am October 10, 2023 3:27pmStart: 06-22-2023 End: 21-42-1339nyxu 1 capsule by mouth once daily at bedtimeMagnesium Glycinate 100 mg magnesium Capsule Discontinued 3000 MG PO Daily at bedtime June 22 024 12:00am October 10, 2023 2:27pmmeloxicam 15 mg oral tablet (15 sources)Nonsteroidal Anti-inflammatory DrugStart: 04-02-2025 End: 75-77-3392xaof 1 tablet by mouth in the morningmeloxicam (MOBIC) 15 mg tablet Indications: Degenerative tear of lateral meniscus, left TAKE 1 TABLET (15 MG TOTAL) BY MOUTH IN THE MORNING 30 tablet 04/02/2025 04/08/2025 Discontinued (Therapy completed)Start: 11-20-2024 End: 20-60-5751nucn 1 tablet by mouth in the morningmeloxicam (MOBIC) 15 mg tablet Indications: Degenerative tear of lateral meniscus, left TAKE 1 TABLET (15 MG TOTAL) BY MOUTH IN THE MORNING 30 tablet 03/04/2025 04/02/2025 Tjdfynjajsyd01 hr metFORMIN hydrochloride 500 mg extended release oral tablet (20 sources)BiguanideStart: 08-31-2023 End: 06-08-7858bynd 2 tablets by mouth twice daily at dinnerMetformin 500 mg tablet extended release 24 hr Discontinued 0 .ROUTE .COMPLEX 360 0 August 06, 2024 6:23pm December 03, 2024 4:20pm take 2 tablet by mouth twice a day with BREAKFAST AND DINNERStart: 62-57-2215obqvqkvhx Oral Start Date: 05/02/23 Status: Ordered Repeat number: 1Start: 78-51-0761ttamtuluz Oral Start Date: 05/02/23 Status: OrderedStart: 03-21-2023 End: 93-36-2134Ajnmoouse 500 mg tablet extended release 24 hr Discontinued 1000 MG PO Twice daily June 22, 2023 1:00am August 31, 2023 1:48pm weight loss Start: 65-59-6930libs 1 tablet by mouth every twenty-four hours in the morning, then take 1 tablet by mouth at bedtime, then take 2 tablets by mouth once daily metFORMIN XR (GLUCOPHAGE XR) 500 mg 24 hr tablet Take 1 tablet (500 mg total) by mouth in the morning and 1 tablet (500 mg total) before bedtime. 2 tab 2x day . 03/21/2023 ActiveStart: 03-21-2023 End: 52-11-4248orvx 1000 mg by mouth twice dailyMetformin Discontinued 1000 MG PO Twice daily June 22, 2023 1:00am August 31, 2023 1:48pmStart: 12-06-2022 take 2 tablets by mouth twice daily at mealtime, then take 2 tablets by mouth twice daily at mealtimemetFORMIN HCl ER 500 MG 2 tabs twice daily with meals Orally twice daily for 30 days Start 1 tab daily increasing weekly to 2 tabs twice daily with meals. Hold at tolerated dose if side effects Nov, ActiveStart: 16-88-8844Oesdlap D 50,000 intl units (1.25 mg) oral capsule (13 sources)Start: 49-18-7412Ejkhsbc D 50,000 intl units (1.25 mg) oral capsule 50,000 International_Unit = 1 cap(s), Oral, q7day, cap(s), Refills(s) 0, Prophylaxis Start Date: 05/16/11 Status: Ordered Repeat number: 1Start: 05-23-1425Mumzrfi D 50,000 intl units (1.25 mg) oral capsule 50,000 International_Unit = 1 cap(s), Oral, q7day, cap(s), Refills(s) 0, Prophylaxis Start Date: 05/16/11 Status: Orderedwegovy 0.25 mg/0.5ml solution auto-injector (3 sources)inject 0.5 mL by subcutaneous injection every week as neededWegovy 0.25 MG/0.5ML 0.5 mL Subcutaneous weekly for 30 days NOT COVERED Not-Taking/PRN Problems Active Problems Problem ClassificationProblemDateDocumented DateEpisodic/ChronicAnxiety disorders (1 source)Mixed anxiety and depressive disorder; Translations: [Anxiety disorder, unspecified]77-39-3209NxximxgCpxtmmpj of urinary tract (20 sources)Kidney stone; Translations: [Calculus of kidney]Onset: 04-20-2022 EpisodicCancer of breast (13 sources)Malignant tumor of -45-2035PpngadnKazbzr of breast (13 sources)Personal history of primary malignant neoplasm of breast; Translations: [Personal history of malignant neoplasm of breast]Episodic Complications of surgical procedures or medical care (2 sources)Postoperative hypothyroidism; Translations: [Postprocedural hypothyroidism]69-93-5592DdflggyTtgbgked mellitus without complication (20 sources)Other abnormal glucose; Translations: [Prediabetes]Onset: 11-14-2022 EpisodicDisorders of lipid metabolism (20 sources)Hyperlipidemia; Translations: [Hyperlipidemia, unspecified]Onset: 645414-13-3066QauaruwKvhlxsacaqekx symptoms and ill-defined conditions (17 sources)Urge incontinence; Translations: [Urge incontinence of urine]Onset: 11-04-2981GepgwzxNemeuwaemntre symptoms and ill-defined conditions (20 sources)Blood in urine; Translations: [Increased frequency of urination] 46-46-8299TmuqwbabUaiwz disorders and dislocations; trauma-related (5 sources)Degenerative rupture of lateral meniscus of left knee; Translations: [Other meniscus derangements, unspecified lateral meniscus, left knee]11-20-2024 ChronicMenstrual disorders (1 source)Excessive and frequent menstruation with regular cycle; Translations: [Excessive and frequent menstruation with regular cycle]Onset: 77-60-6730Rtakuje Non-Hodgkin`s lymphoma (13 sources)Diffuse non-Hodgkin's lymphoma, lymphoblastic (clinical)08-30-2013 ChronicNutritional deficiencies (20 sources)Vitamin D deficiency; Translations: [Vitamin D deficiency, unspecified]ChronicComment on above:Vitamin D deficiency suspected. Vitamin D has been noted to have positive impact on mood and energy. We can recheck periodically and make recommendations for long-term supplementation with tsiz-myt-ncyebfa formulations or prescription grade repletion.Nutritional deficiencies (20 sources)Cobalamin deficiency; Translations: [Deficiency of other specified B group vitamins]43-30-0506EiarsgqaIkqnz bone disease and musculoskeletal deformities (13 sources)Gvcgugtatf44-93-5864QbuylqlxNzbrl diseases of bladder and urethra (2 sources)Detrusor overactivity; Translations: [Overactive bladder]Onset: 40-11-0887JyokkxdRjouz diseases of bladder and urethra (2 sources)Overactive shkctra41-79-1675UmosvskJvzpr diseases of bladder and urethra (2 sources)Male urethral stricture; Translations: [Unspecified urethral stricture, male, unspecified site]Onset: 05-70-2638BwncmvaeQejwi diseases of bladder and urethra (11 sources)Urethral cdbywvabv20-92-5033MhsdczkxMbssq nervous system disorders (12 sources)Acute postoperative pain; Translations: [Other acute postprocedural pain]67-62-8723CtgourgvPargn non-traumatic joint disorders (11 sources)Pain in left knee; Translations: [Pain in joint, lower leg] 21-59-6753HhnbsveyJewcf nutritional; endocrine; and metabolic disorders (20 sources)Obesity, unspecified; Translations: [Obesity, unspecified]Onset: 06-56-6124TbadujgTxgkl nutritional; endocrine; and metabolic disorders (20 sources)Obesity; Translations: [Obesity, unspecified]21-08-8739PypyyfzRzetm nutritional; endocrine; and metabolic disorders (9 sources)Body mass index 40+ - severely obese; Translations: [Body mass index (BMI) 40.0-44.9, adult]ChronicOther nutritional; endocrine; and metabolic disorders (9 sources)Body mass index 30+ - obesity; Translations: [Body mass index (BMI) 30.0-30.9, adult]ChronicOther nutritional; endocrine; and metabolic disorders (1 source)Body mass index (BMI) 30.0-30.9, adultChronicOther nutritional; endocrine; and metabolic disorders (14 sources)Body mass index (BMI) 29.0-29.9, adult; Translations: [Body Mass Index 29.0-29.9, adult]EpisodicOther nutritional; endocrine; and metabolic disorders (3 sources)Body mass index (BMI) 28.0-28.9, adult; Translations: [Body Mass Index 28.0-28.9, adult]EpisodicOther nutritional; endocrine; and metabolic disorders (20 sources)Overweight in adulthood with body mass index of 25 or more but less than 30; Translations: [Body mass index (BMI) 28.0-28.9, adult]08-08-2023 EpisodicOther screening for suspected conditions (not mental disorders or infectious disease) (3 sources)Patient encounter status; Translations: [Encounter for screening for malignant neoplasm of cervix]95-66-5890IotrqqcwSlqvcqpb codes; unclassified (17 sources)Family history of diabetes mellitus; Translations: [Family history of diabetes mellitus]EpisodicResidual codes; unclassified (2 sources)Acquired absence of both cervix and uterus; Translations: [Acquired absence of both cervix and uterus]83-55-5578OuwfhekmHnqyjglz codes; unclassified (14 sources)Family history of diabetes mellitus; Translations: [Family history of diabetes mellitus]49-07-2120YqzwsrajIrnmojk disorders (20 sources)Hypothyroidism; Translations: [Thyroid nodule]09-36-6940Swkzobc Unclassified (1 source)Encounter for preprocedural laboratory examination; Translations: [Encounter for preprocedural laboratory examination]Onset: 06-22-2023 Unclassified (4 sources)Left knee pain, unspecified sbqeaznazj79-17-8017Evxnsppyeafl (1 source)Patient encounter zekutk96-73-7821Bavarog tract infections (20 sources)Chronic cystitis; Translations: [Other chronic cystitis without hematuria]Onset: 51-82-0009MvrhekdVytoizf tract infections (9 sources)Urinary tract infectious disease; Translations: [Urinary tract infection, site not specified]Onset: 08-29-4073UczhkxcdNljva infection (1 source)Herpes zoster; Translations: [Zoster without complications]11-20-2024 Episodic Past or Other Problems Problem ClassificationProblemDateDocumented DateEpisodic/Chronic Administrative/social admission (1 source)Dietary counseling and surveillance; Translations: [Dietary counseling and surveillance]Onset: 78-45-7936LnutttilJbfr disorders (8 sources)Mood disordersOnset: 11-29-2023 Resolved: [id number] endocrine disorders (1 source)Endocrine disorder, unspecified; Translations: [ENDOCRINE DISORDER UNSPECIFIED]Onset: 12-41-1861XshnlpjbTxvov nervous system disorders (1 source)Other acute postprocedural pain; Translations: [Other acute postprocedural pain]Onset: 44-01-2014ExemqcofRuuwtydgyspn (13 sources)STRESS FRACTURE RIGHT LNWEH83-70-5000Jbipauwdzafs (8 sources)Onset: 11-29-2023 Resolved: [id number] Results Test NameValueInterpretationReference RangeFacilityPOCT Hemoglobin A1con 65-19-0931QgP0g (Bld) [Mass fraction]5.9 %4 - 7 %[facility] Knee - left 3 Viewson 13-43-1433Vyjchqb Result: Three views, bilateral PA weight-bearing, sunrise, lateral of the left knee(s) taken today and saved to the permanent medical record are reviewed. Near complete loss lateral joint space left knee with valgus posture. 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 2 metallic screws intact at proximal tibia from previous TTO. Bipartite patella right knee.[facility] Panel Informationon [id number] Bender, [facility] 03/23/2025 8:47 PM L Inj/Asp: L knee on 03/18/2025 4:03 PM Indications: pain Details: 25 G needle, lateral approach Medications: 1.5 mL betamethasone acetate-betamethasone sodium phosphate 6 (3-3) MG/ML Consent was given by the patient. [facility] Panel Informationon [id number] Bender, ARRT 03/23/2025 8:24 PM L Inj/Asp: L knee on 01/16/2025 3:53 PM Indications: pain Details: 25 G needle, lateral approach Medications: 1.5 mL betamethasone acetate-betamethasone sodium phosphate 6 (3-3) MG/ML Consent was given by the patient. [facility] K[facility] - left 3 Viewson [id number] Study observation (narrative)[facility] [id number] From: Katarina Driver To: EU - Recalls Isaias; Sent: 01/14/2025 15:38:42 EDT Show up: 04/19/2025 15:38:00 EDT Subject: cysto/UD Due Date/Time: 05/12/2025 15:38:00 EST Reminder/Recall [facility] [id number] Office/Clinic NoteUrology Office/Clinic Note HPI Staff 49 year old female presents for cysto/UD. Pt did not take ABX prior states she is picking them up following procedure PVR: 36 History of Present Illness Tests reviewed: I have reviewed the previous health record information and history for this patient from Dr. Esparza. I have reviewed and verified the staff HPI to be accurate for this encounter. Review of Systems ROS - Provider Constitutional: denies weight loss, denies hot flashes. Eyes: denies eye problems. Gastrointestinal: denies nausea, denies vomiting. Cardiovascular: denies chest pain or angina. Integumentary: no dryness Musculoskeletal: denies musculoskeletal symptoms. ENMT: denies otolaryngeal symptoms. Respiratory: no shortness of breath. Heme/Lymph: denies easy bleeding tendency, denies easy bruising tendency. Psychiatric: no confusion, no anxiety. Genitourinary: See HPI. Physical Exam Vitals & Measurements HR: 81(Peripheral) BP: 106/69 General Appearance: alert, no distress, well nourished, well developed adult. Procedure Operative Information Anesthesia Type: Local Procedure: Local Cystoscopy with Urethral Dilation Complications: None Surgical risks, benefits, details of the procedure have been explained to the patient. Full informed consent has been obtained. Intraoperative Information Prepped: Patient is brought back to the endoscopy suite. Patient is placed in modified dorso/lithotomy position. Patient prepped in the usual fashion with Betadine solution. 2% Xylocaine Jelly is placed per Urethra. After waiting several minutes, the Cystoscope is introduced. The Urethra is: Tight The Bladder: No tumors or stones, normal except on the back wall there was a 3 cm flat, red area. From dilators vs inflammatory in nature? Trabeculated: None (0) The Ureteral orifices: Show efflux of clear urine The Urethra was dilated to: 20-30 Arabic with sounds. Specimens Removed: None Removal: Cystoscope is removed. The patient tolerated it well. Postoperative Information Patient is discharged home with antibiotic coverage. Follow up arranged. Assessment/Plan 1. Chronic cystitis (N30.20: Other chronic cystitis without hematuria) UCx: 03/28/23 - >100k E Coli, tx'd w/ Keflex Cysto/UD 06/20/23 - Diffuse red and inflamed bladder with inflammatory debris, no tumors, and largeuterine imprint. Pt was given Keflex 500mg bid x2wks and then qd x1mo at time of cysto 06/20/23. Pt felt abx course improved sxs. 08/22/23 - >100k E. coli and <10k mixed skin contam, tx'd w/ doxycycline 100mg bid x7 days. Pt was asx. 09/26/23 - >100k E. coli, tx'd w/ Keflex 500mg bid x10 days. 11/07/23 - >100K E Coli again. Tx'd w keflex 500 bid x 14d, then switched to suppressive abx - Keflex 250mg x 6 mos. 05/23/24 - >100k E. coli S/p total hysterectomy. Hx of triple negative breast cancer. Pt had IO cysto/UD today wo complications. Pt was to decrease Keflex to 2x/wk up until this procedure. Follow up 6-8 mos cysto/UD or sooner if needed. Pt understands and agrees with plan. 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 OAB (overactive bladder) (N32.81: Overactive bladder) PVR 38 cc today. Taking Oxybutynin 10mg ER qd. -Double voids, crede technique -High fluid intake, goal at least 6-8 water bottles daily 3. History of kidney stones (Z87.442: Personal history of urinary calculi) Metabolic workup - Significant low volume. KUB 04/16/22 - Neg. KUB 05/01/23 - Neg. CT AP w con 09/16/23 [facility] - Several nonobstructing 2 mm stones in L kidney. KUB 11/22/24 [facility] - Neg. Kidneys are partially obscured. Taking Klor-Con 25mEq BID. Cont wo changes. -High fluid intake Follow-up With When Contact Information ISAIAS SMITH, Marshall Conti, URL [facility] [address], [place] [address]- Additional Instructions: 6-8 mos cysto/UD Patient Education Urinary Tract Infection, Adult I, Danette Graves, personally scribed for Dr. Esparza on 01/14/2025 15:31:18. . Documentation recorded by the scribe, Danette Graves, accurately reflects the services(s) I performed and decisions made by me. Authenticated by Dr. Esparza on 01/14/2025 15:33:22. Problem List/Past Medical History Ongoing Chronic cystitis History of kidney stones Hyperlipidemia Hypothyroidism OAB (overactive bladder) Urethral stricture Historical Breast cancer Lymphoblastic lymphoma Osteopenia STRESS FRACTURE RIGHT ANKLE Procedure/Surgical History Hysterectomy (07/07/2023), Cystourethroscopy with dilation of urethral stricture (06/20/2023), Cystoscopy (07/16/2019), Cystourethroscopy with dilation of urethral stricture (07/16/2019), BILATERAL MASTECTOMY WITH TISSUE MANAGER [employer] INSERTION, bladder suspension, ESWL KIDNEY STONE X2, LEFT KNEE RECONSTRUCTIVE SURGERY, PARATHYROID GLAND EXCISION, Part of lobe of thyroid gland. (more content not included)...[facility] HospitalComment on above: Result Comment: Electronically Signed By: Marshall ESPARZA MD\.br\Date and Time Signed: 01/14/25 15:33 EDT\.br\Electronically Co-Signed By: Danette Graves\.br\Date and Time Co-Signed: 01/14/25 15:31 EDTAmbulatory Visit Summaryon [id number] Visit SummaryAmbulatory Visit Summary NICOLETTE EVANGELISTA Lorne :1975 Visit Date:11/25/2024 Ambulatory Visit Instructions Your Diagnosis Chronic cystitis OAB (overactive bladder) History of kidney stones Your Care Team Attending Physician - Marshall ESPARZA MD Primary Care Physician - HENOK DUMONT CNP This Is Your Medications List cephalexin (Keflex 250 mg Cap) oxybutynin (oxybutynin 10 mg ER Tab) potassium bicarbonate (Klor-Con/EF 25 mEq oral tablet, effervescent) Contact prescribing physician if questions or concerns atorvastatin calcium-vitamin D (Calcium 600+D) ergocalciferol (Vitamin D 50,000 intl units (1.25 mg) oral capsule) levothyroxine (levothyroxine 50 mcg (0.05 mg) Tab) meloxicam (meloxicam 15 mg Tab) metformin phentermine sertraline (Zoloft 100 mg Tab) valacyclovir (valacyclovir 1 g Tab) Procedures Performed Hysterectomy (07/07/2023), Cystourethroscopy with dilation of urethral stricture (06/20/2023), Cystoscopy (07/16/2019), Cystourethroscopy with dilation of urethral stricture (07/16/2019), BILATERAL MASTECTOMY WITH TISSUE MANAGER [employer] INSERTION, bladder suspension, ESWL KIDNEY STONE X2, LEFT KNEE RECONSTRUCTIVE SURGERY, PARATHYROID GLAND EXCISION, Part of lobe of thyroid gland. Discharge Vitals Heart Rate (Peripheral) 68 Blood Pressure 122/68 Height 172 cm Height 68 in Weight 81.1 kg Weight 178.795 lb BMI 27.41 What to do next You Need to Schedule the Following Appointments Follow Up with ISAIAS SMITH, NATAN Hurd When: Where: [facility] [address] , [place] [address]- Medications What How Much When Instructions Unchanged cephalexin (Keflex 250 mg Cap) 1 Capsules By Mouth Monday Unchanged oxybutynin (oxybutynin 10 mg ER Tab) 1 Tablets By Mouth Every day Unchanged potassium bicarbonate (Klor-Con/ EF 25 mEq oral tablet, effervescent) 1 Tablets By Mouth 2 times a day Unchanged atorvastatin By Mouth Every day Contact prescribing physician if questions or concerns Unchanged calcium-vitamin D (Calcium 600+D) By Mouth 2 times a day Contact prescribing physician ifquestions or concerns Unchanged ergocalciferol (Vitamin D 50,000 intl units (1.25 mg) oral capsule) 1 Capsules By Mouth Every 7 days Contact prescribing physician if questions or concerns Unchanged levothyroxine (levothyroxine 50 mcg (0.05 mg) Tab) Contact prescribing physician if questions or concerns Unchanged meloxicam (meloxicam 15 mg Tab) 1 Tablets Contact prescribing physician if questions or concerns Unchanged metformin By Mouth Contact prescribing physician if questions or concerns Unchanged phentermine 37.5 Milligram By Mouth Once a day (in the morning) Contact prescribing physician if questions or concerns Unchanged sertraline (Zoloft 100 mg Tab) 1 Tablets By Mouth Every day Contact prescribing physicianif questions or concerns Unchanged valacyclovir (valacyclovir 1 g Tab) 1 Tablets Contact prescribing physician if questions or concerns Allergies Zithromax (Vomiting, Diarrhea) azithromycin (Unknown) sulfamethoxazole (Hives) Problems Ongoing - Any problem that you are currently receiving treatment for. Chronic cystitis History of kidney stones Hyperlipidemia Hypothyroidism Kidney stones OAB (overactive bladder) Urethral stricture Urge incontinence Historical - Any problem that you are no longer receiving treatment for. Breast cancer Lymphoblastic lymphoma Osteopenia STRESS FRACTURE RIGHT ANKLE Patient Survey You may receive a survey via text or e-mail asking about your office visit. Please share your experience with us by completing your survey. We appreciate your feedback and thank you for choosing us for your care. Education Materials Urethral Dilation Urethral dilation is a procedure to stretch open (dilate) the urethra. The urethra is the tube thatdrains pee (urine) from the bladder out of the body. In females, the urethra opens above the vaginal opening. In males, the urethra opens at the tip of the penis. Urethral dilation is usually done to treat narrowing of the urethra (urethral stricture), which canmake it difficult to pee (urinate). Urethral strictures can be caused by scar tissue, infection, injury, or surgery. Urethral dilation widens the urethra so that you can pee normally. Urethral dilation is done through the opening of the urethra. There are no incisions made during the procedure. Tell a health care provider about: ??? Any allergies you have. ??? All medicines you are taking, including vitamins, herbs, eye drops, creams, and odsa-smg-lkpkjen medicines. ??? Any problems you or family members have had with anesthesia. ??? Any bleeding problems you have. ??? Any surgeries you have had. ??? Any medical conditions you have. ??? Whether you are or may be . What are the risks? Your health care provider will talk w (more content not included)...[facility]/Clinic Noteon [id number] Office/Clinic NoteUrology Office/Clinic Note Chief Complaint 6 mth f/u with [facility] HPI Staff 6 month f/u with [facility] Dx: chronic cystitis, kidney, urge incontinence and urethral stricture. Oxybutynin 10mg ER qd and Effer-k 25mEq BID doing well with no issues B&B 12 denies pain/burning denies visible blood denies back/flank pain pt reports strong odor to her urine History of Present Illness Tests reviewed: UA, KUB, ucx I have reviewed the previous health record information and history for this patient from Vilma Hayes PA-C. I have reviewed and verified the staff HPI to be accurate for this encounter. Review of Systems PHQ Score Initial [...] See HPI. Physical Exam Vitals & Measurements HR: 68(Peripheral) BP: 122/68 HT: 68 in HT: 172 cm WT: 178.795 lb WT: 81.1 kg BMI: 27.41 General Appearance: alert, no distress, well nourished, well developed female. Assessment/Plan 1. Chronic cystitis (N30.20: Other chronic cystitis without hematuria) UCx: 03/28/23 - >100k E Coli, tx'd w/ Keflex Cysto/UD 06/20/23 - Diffuse red and inflamed bladder with inflammatory debris, no tumors, and largeuterine imprint. Pt was given Keflex 500mg bid x2wks and then qd x1mo at time of cysto 06/20/23. Pt felt abx course improved sxs. 08/22/23 - >100k E. coli and <10k mixed skin contam, tx'd w/ doxycycline 100mg bid x7 days. Pt was asx. 09/26/23 - >100k E. coli, tx'd w/ Keflex 500mg bid x10 days. 11/07/23 - >100K E Coli again. Tx'd w keflex 500 bid x 14d, then switched to suppressive abx - Keflex 250mg x 6 mos. 05/23/24 - >100k E. coli S/p total hysterectomy. Hx of triple negative breast cancer. UA shows trace leuks. Asx today. Resumed suppressive Keflex 250 mg MWF at prior OV d/t sx recurringafter stopping with positive UA. She is taking 250 mg MWF. She is uncertain why she has recurrent infections. Cannot hold bladder for multiple hours. Wipes front to back. Does not take any estrogen products. Denies vaginal dryness and pain with intercourse. Recurrent infections likely of hormonal etiology given hx of hysterectomy and poor stream (sign of poor tissue quality). She is not a candidate for estrogen cream given hx of breast cancer. Would prefer to d/c suppressive abx as this is usedfor last resort and pt is young. Only other option is UD. She previously tolerated this well in 2019 and is amenable to try this again. -Increase fluid intake -Decrease Keflex to MF until cysto/UD -Will schedule Cysto with UD. The procedure risks, benefits, details, and treatment alternatives have been discussed with the patient. These include bleeding, infection, recurrent scar in over 50%, need for repeat dilation or other procedures, no symptom relief with dilation, among others. Full informed consent has been obtained. Will order Local anesthesia. 2. OAB (overactive bladder) (N32.81: Overactive bladder) BBS 12 (13). Taking Oxybutynin 10mg ER qd. Some tolerable urgency but wo incontinence. Stream is not great. Uncertain if she strains to void. Explained bladder med decreases bladder power which cancause stream to be weak. Since she is still having some urgency, her oxybutynin dose is likely enough to manage sx without completely diminishing bladder power. She voids to completion then waits fora bit and is able to empty out more urine. Counseled pt on emptying maneuvers. Does not wear pads/depends for leakage, only requires this during infection. -Double voids, crede technique -High fluid intake, goal at least 6-8 water bottles daily 3. History of kidney stones (Z87.442: Personal history of urinary calculi) Metabolic workup - Significant low volume. KUB 04/16/22 - Neg. KUB 05/01/23 - Neg. CT AP w con 09/16/23 [facility] - Several nonobstructing 2 mm stones in L kidney. KUB 11/22/24 [facility] - Neg. Kidneys are partially obscured. Taking Klor-Con 25mEq BID. Reviewed imaging with pt. Recommended pt to increase fluid intake to tento twelve 16 oz bottles a day, preferably water, clear pop, and sugar free lemonade. -Increase fluid intake Follow-up With When Contact Information Marshall ESPARZA MD, [facility] [address] [place] [address]- Additional Instructions: schedule Cysto with UD Patient Education Urethral Dilation Dietary Guidelines to Help Prevent Kidney Stones I, Danette Graves, personally scribed for Dr. Esparza on 11/25/2024 17:16:29. . Documentation recorded by t (more content not included)...[facility] HospitalComment on above:Result Comment: Electronically Signed By: Marshall ESPARZA MD\.br\Date and Time Signed: 11/25/24 17:22 EDT\.br\Electronically Co-Signed By: Danette Graves\.br\Date and Time Co-Signed: 11/25/24 17:18 EDT Plastic Surgery Visit Reporton [id number] Surgery [facility] [address], [address] [place] [address] OFFICE VISIT Date of Service: 09/11/24 MR#: [id number] Acct: [id number] Name: NICOLETTE EVANGELISTA Rep #: [id number] : 1975 Provider: Dr. Indira jeronimo MD Age/Sex: 49/F Location: [facility] Status: Signed Intake Vital Signs 09/11/24 10:37 Height 5 ft 8 in Weight: 178 lb BMI 27.0 BP 112/74 Blood Pressure Location Lt brachial Position Sitting Respiration 18 Pulse 91 Temp 99.5 F H Temp Source Temporal Pulse Oximetry (%) 95 Oxygen Delivery Method room air Intake Visit Reasons: ABDOMINOPLASTY Chief Complaint: abdominoplasty consult Allergies Sulfa (Sulfonamide Antibiotics) (sulfa drugs) Allergy (Mild, Verified 09/11/24 10:31) Hives Medications ???Medication ???Instructions ???Recorded ???Confirmed ???Type atorvastatin 10 mg tablet 10 mg PO QDAY 09/11/24 09/11/24 Hi story cephalexin 250 mg capsule 250 mg PO 3XW 09/11/24 09/11/24 Hi story levothyroxine 50 mcg tablet 50 mcg PO QDAY 09/11/24 09/11/24 H istory metformin 500 mg tablet,extended 1,000 mg PO BID 09/11/24 09/11/24 History release 24 hr oxybutynin chloride 10 mg 10 mg PO QDAY 09/11/24 09/11/24 Hi story tablet,extended release 24 hr phentermine 15 mg capsule 15 mg PO QDAY 09/11/24 09/11/24 Hi story potassium bicarbonate-citric acid 1 ea PO BID 09/11/24 09/11/24 His tory 25 mEq effervescent tablet (Klor-Con/EF) sertraline 100 mg tablet 100 mg PO QDAY 09/11/24 09/11/24 H istory Nurse's Note: previous pt here for abdinoplasty [facility] Medical History (Updated 09/11/24 @ 11:[address] Indira Lua MD) Kidney stones Parathyroid disease Cancer Blood clot in leg UTI (urinary tract infection) Bone fracture Surgical History (Updated 09/11/24 @ 10:29 by Alejandra Aguiar) H/O total hysterectomy H/O bilateral mastectomy Family History (Updated 09/11/24 @ 10:30 by Alejandra Aguiar) Father Cancer Social History (Updated 09/11/24 @ 10:37 by Alejandra Aguiar) Smoking Status: Never smoker alcohol intake: current substance use type: does not use additional social history: does not use aspirin, denies vaping, denies marijuana use, denies edibles, uses ibuprofen as needed HPI ABDOMINOPLASTY Details: Nicolette is a 49-year-old female who presents today for consideration of abdominoplasty. I performed a breast reconstruction on her over 15 years ago in [place]. She is in good health. She has had no problems with her previous reconstruction. She states that she and her have worked on improving their health and she has successfully lost 25 pounds. Her previous abdominal surgery include a laparoscopic hysterectomy. She is not a smoker nor does she use marijuana products. She has had 1 child through vaginal delivery. She denies any hernias ROS General General: Yes good health; No fatigue, fever(s) or weight loss HENMT HENMT: No rhinitis, sore throat/mouth sore, nasal congestion, contacts or glaucoma Endo Endocrine: No thyroid disease, polydipsia, heat intolerance, cold intolerance, hepatitis or excessive urine Skin Skin: No Bleeding, bruising, changing moles or suspicious lesion Musc Musculoskeletal: No joint pain, joint stiffness, muscle weakness, back pain, osteoarthritis or Muscle aches/ myalgia Neuro Neurological: No headache(s), No lightheadedness and No numbness Cardio Cardiovascular: No chest pain, pacemaker, fatigue or shortness of breat with exertion Psych Psychiatric: No depression, claustrophobia or anxiety Resp Respiratory: No spitting up, shortness of breath, sleep apnea, asthma, emphysema, TB, Cough or Smoker Gastro Gastrointestinal: No diarrhea, constipation, blood in stool, nausea, vomiting or abdominal bloating Srikanth Hematologic: No anemia, No bleeding and No abnormal bleeding Genitourinary: No urinary frequency, blood in urine or incontinence Exam Details Patient with a moderate amount of atrophic skin. She has a protuberant upper abdomen which I indicated would likely continue afterward as well because of represents the visceral fat protuberance. There is no obvious hernias. The procedure of abdominoplasty was reviewed with her including the incisions and scars as well as limitations after surgery. 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 The expected pre-, intra-, postoperative course were reviewed. She is aware of the need for drains after surgery. She is aware that further preop preparation would be in order if she decided to proceed. She is aware that the surgery would be done as an outpatient. Const General: cooperative and healthy appearing Coding Level of Care Code Cosmetic Cons (more content not included)...[facility] Outside Recordson [id number] Records [id number]#1.00[facility] Outside Recordson [id number] Records [id number]#1.00[facility] Urineon [id number] identified Cx Nom (U)Microbiology PROCEDURE: Urine Culture [R1] SOURCE: U Random BODY SITE: COLLECTED DATE/TIME: 05/23/2024 15:45 EST RECEIVED DATE/TIME: 05/24/2024 17:22 EST START DATE/TIME: 05/24/2024 17:22 EST FREE TEXT SOURCE: JOSELYN HAYES PA-C, PA-C, JOSELYN Clark FINAL REPORTS Final Report [] Verified Date/Time: 05/26/2024 07:41 EST >100,000 cfu/ml Escherichia coli SUSCEPTIBILITY RESULTS LEGEND: S=Susceptible, N/R=Not Reported, Blank=Data not available, or drug not advisable or tested, I=Intermediate, ESBL=Extended spectrum beta-lactamase, R=Resistant, TFG=Thymidine-dependent strain, PHILIP=Beta-lactamase positive, ARMEN=mcg/m;(mg/L), S*=Predicted susceptible interp, R*=Predicted resistant interp EC Antibiotic ARMEN Dilutn ARMEN Interp Ampicillin <=8 S Ampicillin/ <=8/4 S Sulbactam Aztreonam <=4 S Cefazolin <=2 S Cefepime <=2 S Ceftazidime <=1 S Ceftazidime/ <=8 S Avibactam Ceftriaxone <=1 S Cefuroxime <=4 S Ciprofloxacin >2 R Ertapenem <=0.5 S Gentamicin <=2 S Levofloxacin >4 R Meropenem <=1 S Nitrofurantoin >64 R Piperacillin/ <=8 S Tazobactam Tetracycline <=4 S Tobramycin <=2 S Trimethoprim/ <=2/38 S Sulfa Performing Locations R1: This test was performed at: [facility], [address] [place] [address], [address]- , [place], QermpcPkvdacGreene Memorial HospitalComment on above:Performed By: #### [id number] #### [facility] [address] [place] [id number] Panel Informationon 19-24-7457Ryppnevihyiwf Qvmfb486 Summa HealthOutside Recordson 59-85-0663Jdvbvut Records [id number]#1.00OTGTIFFBucyrus Community Hospital Urineon 45-85-8397Llfhcfgq identified Cx Nom (U)Microbiology PROCEDURE: Urine Culture [R1] SOURCE: U CleanCatch BODY SITE: COLLECTED DATE/TIME: 11/07/2023 15:48 EDT RECEIVED DATE/TIME: 11/08/2023 18:49 EDT START DATE/TIME: 11/08/2023 18:49 EDT FREE TEXT SOURCE: JOSELYN HAYES PA-C, PA-C, JENNIFER E FINAL REPORTS Final Report [] Verified Date/Time: 11/10/2023 10:35 EDT >100,000 cfu/ml Escherichia coli SUSCEPTIBILITY RESULTS LEGEND: S=Susceptible, N/R=Not Reported, Blank=Data not available, or drug not advisable or tested, I=Intermediate, ESBL=Extended spectrum beta-lactamase, R=Resistant, TFG=Thymidine-dependent strain, PHILIP=Beta-lactamase positive, ARMEN=mcg/m;(mg/L), S*=Predicted susceptible interp, [...] Locations R1: This test was performed at: [facility], [address] [place] [address], [address]- , , QtfqmsPqnppvSalem City HospitalComment on above:Performed By: #### [id number] #### [facility] [address] [place], [place] [id number] Visit Summaryon 20-98-7836Eggokcfotf Visit Summary NICOLETTE EVANGELISTA :1975 Visit Date:11/07/2023 Ambulatory Visit Instructions Your Diagnosis Chronic cystitis Postinfective urethral stricture in female Kidney stones Urge incontinence Your Care Team Attending Physician - JOSELYN HAYES PA-C Primary Care Physician - MUSA EVANGELISTA DO Referring Physician - Marshall ESPARZA MD This Is Your Medications List cephalexin [...] urethral stricture (07/16/2019), BILATERAL MASTECTOMY WITH TISSUE MANAGER GLOBAL COMMUNICATIONS INSERTION, bladder suspension, ESWL KIDNEY STONE X2, LEFT KNEE RECONSTRUCTIVE SURGERY, PARATHYROID GLAND EXCISION, Part of lobe of thyroid gland. Discharge Vitals Height 172 cm Height 68 in Weight 84 kg Weight 184.8 lb BMI 28.39 What to do next Scheduled Follow-Up Appointments Monday 3:00 PM EST With: JOSELYN HAYES PA-C Where: [facility]Ambulatory Visit Summary NICOLETTE EVANGELISTA :1975 Visit Date:11/07/2023 Ambulatory Visit Instructions Your Diagnosis Chronic cystitis Postinfective urethral stricture in female Kidney stones Urge incontinence Your Care Team Attending Physician - JOSELYN HAYES PA-C Primary Care Physician - MUSA EVANGELISTA DO Referring Physician - Marshall ESPARZA MD This Is Your Medications List cephalexin [...] urethral stricture (07/16/2019), BILATERAL MASTECTOMY WITH TISSUE MANAGER GLOBAL COMMUNICATIONS INSERTION, bladder suspension, ESWL KIDNEY STONE X2, LEFT KNEE RECONSTRUCTIVE SURGERY, PARATHYROID GLAND EXCISION, Part of lobe of thyroid gland. Discharge Vitals Height 172 cm Height 68 in Weight 84 kg Weight 184.8 lb BMI 28.39 What to do next Scheduled Follow-Up Appointments Monday 3:00 PM EST With: JOSELYN HAYES PA-C Where: [facility]Patient Educationon 27-57-9496Oytweee EducationObstetrics and Gynecology Urinary Tract Infection, Adult A [...] this condition includes: ? Antibiotic medicine. ? Rpuy-eft-iasrdma medicines to treat discomfort. ? Drinking enough [...] these instructions at home: Medicines ? Take wnrh-zlq-pvhpesj and prescription medicines only as told by [...] Revised: 01/15/2021 Document Revie (more content not included)...Normal Zimmerman [facility] HospitalUrology Office/Clinic Noteon 83-01-0637Lufjrzr Office/Clinic NoteChief Complaint F/U after cysto/UD HPI Staff PRW pt S/P Cysto/UD 06/20/23 DX: Urethral Stricture, Chronic Cystitis, Kidney Stone & Urge Incontinence *Effer K 25mEq bid & Oxybutynin 10mg ER therapy. PRW sent Cephalexin 500mg BID x2wks & then QD x1m at time of Cysto/UD (no UA documented, however encounter states UA today trace-intactblood, her bladder seems badly infected ) Recheck [...] bladder with inflammatory debris, no tumors, and largeuterine imprint. Pt was given Keflex 500mg bid x2wks and then qd x1mo at time of cysto 06/20/23. Ptfelt abx course improved sxs. 08/22/23 - >100k E. coli and <10k mixed skin contam, tx'd w/ doxycycline 100mg bid x7 days. Pt was asx. 09/26/23 - >100k E. coli, tx'd w/ Keflex 500mg bid x10 days. UA today shows trace-lysed blood, small leuks, and positive nitrites. Again has increased frequencyand urgency. Discussed treating current infection and then [...] constant cystitis. Follow-up With When Contact Information LAZ FLEMING, JOSELYN Clark, URL [address] [place] [address] [phone] Additional Instructions: 6 mos (no labs) Patient Education Urinary Tract Infection, Adult Documentation recorded by the scribeduardo Abarca accurately reflects the services(s) I performed anddecisions made by me. Authenticated by Joselyn Hayes PA-C on 11/07/2023 15:58:57. Bebe Merino, personally scribed for Joselyn Hayes PA-C on 11/07/2023 15:50:56. . Problem List/Past [...] urethral stricture (07/16/2019), BILA (more content not included)...Sal[facility] City HospitalComment on above:Result Comment: Electronically Signed By: JOSELYN HAYES PA-C\.br\Date and Time Signed: 11/06/2414:59 EDT\.br\Electronically Co-Signed By: Bebe Abarca\.br\Date and Time Co-Signed: 11/07/23 15:51 APUDwG8e HPLC (Bld) [Mass fraction]on 24-93-6303HxN4e (Bld) [Mass fraction]6.2 %[facility] Urineon 11-05-8833Juvklbkt identified Cx Nom (U)Microbiology PROCEDURE: Urine Culture [R1] SOURCE: U Random BODY SITE: COLLECTED DATE/TIME: 09/26/2023 15:07 EDT RECEIVED DATE/TIME: 09/26/2023 20:21 EDT START DATE/TIME: 09/26/2023 20:21 EDT FREE TEXT SOURCE: ISAIAS SMITH, Marshall ESPARZA MD, Marshall Conti FINAL REPORTS Final Report [] Verified Date/Time: 09/28/2023 10:11 EDT >100,000 cfu/ml Escherichia coli SUSCEPTIBILITY RESULTS LEGEND: S=Susceptible, N/R=Not Reported, Blank=Data not available, or drug not advisable or tested, I=Intermediate, ESBL=Extended spectrum beta-lactamase, R=Resistant, TFG=Thymidine-dependent strain, PHILIP=Beta-lactamase positive, ARMEN=mcg/m;(mg/L), S*=Predicted susceptible interp, [...] Locations R1: This test was performed at: [facility], [address] [place] [address], [address]- , , ZuyxazIavpysSalem City HospitalComment on above:Performed By: #### [id number] ####[facility] [address] [place], [place] [address]Ewynkxykrf Visit Summaryon 59-45-6182Icivuzfkbs Visit Summary NICOLETTE EVANGELISTA:1975 Visit Date:09/26/2023 Ambulatory Visit Instructions Your Diagnosis Recurrent UTI Your Care Team Attending Physician - ISAIAS [...] urethral stricture (07/16/2019), BILATERAL MASTECTOMY WITH TISSUE MANAGER GLOBAL COMMUNICATIONS INSERTION, bladder suspension, ESWL KIDNEY STONE X2, LEFT KNEE RECONSTRUCTIVE SURGERY, PARATHYROID GLAND EXCISION, Part of lobe of thyroid gland. What to do next Scheduled Follow-Up Appointments Monday. 2023 2:45 PM EDT With: ISAIAS SMITH, Marhsall Conti [facility] HospitalURINALYSISOrdered By: SYSTEM SYSTEM on 49-80-2486Likyq (U) Light-Yellow 1 (09/26/23 3:07 PM)NormalYellowINTEGRIS HEALTH [facility]MON[facility] [place] UA Auto SSComment on above:Interpretive Data: Microscopic readings are only performed on those samples that meet specific criteria set forth by [facility].Glucose (U) [Mass/Vol]NegativeNormalNegativemg/dLINTEGRIS HEALTH [facility] [place] UA Auto SSKetones Ql (U)NegativeNormal Negativemg/dLFT UA Auto SSUA Bacteria1+ graded/HPFInvalid Interpretation Code Tracegraded/HPFFT UA Auto SSUA BloodNegativeNormalNegativemg/dLINTEGRIS HEALTH [facility]MON[facility] [place] UA Auto SS UA ClarityClear (09/26/23 3:07 PM)NormalClearFTMC UA Auto SSUA Leuk Ujz099 Pritesh/uL Pritesh/uLInvalid Interpretation CodeNegativeLeu/uLINTEGRIS HEALTH [facility]MON[facility] UA Auto SSUA MucousTrace graded/LPFNormal Negativegraded/LPFFTMC UA Auto SSUA NitriteNegativeNormalNegativemg/dLINTEGRIS HEALTH [facility] [place] UA Auto SSUA pH5.5 *NA* (09/26/23 3:07 PM)Invalid Interpretation Code5.0 - 9.0[facility]A Auto SSUA Protein NegativeNormalNegativemg/dLINTEGRIS HEALTH [facility] [place] UA Auto SSUA RBC0-3 graded/HPFNormal 0-3graded/HPFINTEGRIS HEALTH [facility]MON[facility] [place] UA Auto SSUA Spec Grav1.012 *NA* (09/26/23 3:07 PM)Invalid Interpretation Code1.005 - 1.030[facility]A Auto SSUA Squam Epithelial0-2 graded/HPFNormal0-2graded/HPFINTEGRIS HEALTH [facility]MON[facility] UA Auto SSUA Urobilinogen NegativeNormalNegativemg/dLINTEGRIS HEALTH [facility] UA Auto SSUA LLQ37-79 graded/HPFInvalid Interpretation Code0-5graded/HPFINTEGRIS HEALTH [facility]MON[facility] [place] UA Auto SSUrobilinogen (U) [Mass/Vol] NegativeNormalNegativemg/dLINTEGRIS HEALTH [facility]MON[facility] [place] UA Auto SSURINALYSISOrdered By: Ingrid Arringotn on 54-16-0290DB Spec DescRandom Urine (09/26/23 3:07 PM)NormalINTEGRIS HEALTH [facility]MOND [facility] [place] UA Auto SSUrinalysis with Microon 89-31-9406Arahq (U) Light-YellowNormalYellowAvita Health System Galion HospitalComment on above:Result Comment: Microscopic readings are only performed on those samples that meet specific criteria set forth by [facility].Performed By: #### [id number] ####[facility] [address] [place]Lkvzknc (U) [Mass/Vol]NegativeNormalNegativeAvita Health System Galion HospitalComment on above:Performed By: #### [id number] ####[facility] [address] [address]Cseaklp Ql (U)Negative NormalNegativeAvita Health System Galion HospitalComment on above:Performed By: #### [id number] ####[address], [place] [address]LY BloodNegativeNormalNegativeAvita Health System Galion HospitalComment on above: Performed By: #### [id number] ####[address], [id number] Bacteria1+ CD:[id number] [facility]itus Medical CenterComment on above:Performed By: #### [id number] ####[address], [id number] ClarityClearNormal ClearAvita Health System Galion HospitalComment on above:Performed By: #### [id number] ####[address], [place]TQ Leuk Eco543 Pritesh/uLAbnormalNegUniversity Hospitals Parma Medical CenterComment on above: Performed By: #### [id number] ####[address], [id number] MucousTraceNormalNegUniversity Hospitals Parma Medical CenterComment on above:Performed By: #### [id number] ####[address], [id number] NitriteNegativeNormal NegativeAvita Health System Galion HospitalComment on above:Performed By: #### [id number] ####[address], [place] [address]MB pH5.5Invalid Interpretation Code5.0-9.0[facility] Comment on above:Performed By: #### [id number] ####[address], [id number] ProteinNegativeNormalEast Ohio Regional HospitalComment on above:Performed By: #### [id number] ####[address], [id number] RBC0-3Normal 0-3FProMedica Fostoria Community HospitalComment on above:Performed By: #### [id number] ####Zimm[place] [address] [id number] Spec Grav1.012Invalid Interpretation Code1.005-1.030[facility] Comment on above:Performed By: #### [id number] ####Zimmerman [address]UA Squam Etolrvxoyi6-3Aruvto8-3Cbqcvx [facility] Medical CenterComment on above:Performed By: #### [id number] ####[place]imm[place] [address]UA Urobilinogen NegativeNormalNegativeAvita Health System Galion HospitalComment on above:Performed By: #### [id number] ####[address]UA GFR76-26Bhblzsgh2-8GomdzeProMedica Fostoria Community HospitalComment on above:Performed By: #### [id number] ####[address] HW[address]Zgdwfdvquatw (U) [Mass/Vol]Negative NormalNegativeAvita Health System Galion HospitalComment on above:Performed By: #### [id number] ####[address] [id number] Spec DescRandom UrineNormalAvita Health System Galion HospitalComment on above: Performed By: #### [id number] ####[address] UB[address]Xzk-Tqjmzycvwwaiy Formon 92-89-5229Uan-Certification [id number]#1.00TIFFNoGreene Memorial HospitalRAD - [place] Reporton 02-76-0601MPT - [place] Report [id number]#1.00TIFFNormalFisher [facility] Urineon 15-67-2954Yplelsdo identified Cx Nom (U)Microbiology PROCEDURE: Urine Culture [R1] SOURCE: U CleanCatch BODY SITE: COLLECTED DATE/TIME: 08/22/2023 10:48 EST RECEIVED DATE/TIME: 08/22/2023 18:04 EST START DATE/TIME: 08/22/2023 18:04 EST FREE TEXT SOURCE: ISAIAS SMITH, Marshall ESPARZA MD, Marshall Conti FINAL REPORTS Final Report [] Verified Date/Time: 08/25/2023 11:33 EST >100,000 cfu/ml Escherichia coli <10,000 cfu/ml Mixed skin contaminants SUSCEPTIBILITY RESULTS LEGEND: S=Susceptible, N/R=Not Reported, Blank=Data not available, or drug not advisable or tested, I=Intermediate, ESBL=Extended spectrum beta-lactamase, R=Resistant, TFG=Thymidine-dependent strain, PHILIP=Beta-lactamase positive, ARMEN=mcg/m;(mg/L), S*=Predicted susceptible interp, [...] Locations R1: This test was performed at: [facility], [address] [place] [address], [address] , , XllryrVoxrczSalem City HospitalComment on above:Performed By: #### [id number] ####[facility] [address] [place], [place] [address]Truisnemzy Visit Summaryon 44-14-0889Uyobsipbvs Visit Summary NICOLETTE EVANGELISTA :1975 Visit Date:08/21/2023 Ambulatory Visit Instructions Your Diagnosis Chronic cystitis Your Care Team Attending Physician - Marshall ESPARZA MD Primary Care Physician - MUSA EVANGELISTA [...] urethral stricture (07/16/2019), BILATERAL MASTECTOMY WITH TISSUE MANAGER GLOBAL COMMUNICATIONS INSERTION, bladder suspension, ESWL KIDNEY STONE X2, LEFT KNEE RECONSTRUCTIVE SURGERY, PARATHYROID GLAND EXCISION, Part of lobe of thyroid gland. What to do next Scheduled Follow-Up Appointments Monday 2:45 PM EDT With: Marshall ESPARZA MD [facility] HospitalHCG ( test) IA.rapid Ql (U)Ordered By: Jesús Andrew on 35-55-8733KON ( test) Ql (U)NegativeSumma HealthHCG,Urineon 73-99-6824Gmeu HCG ( test) Ql (U)NegativeNoFormerly [facility] Physician GroupComment on above:Result Comment: PERFORMED BY: [place] [address] PATHOLOGIST BIOFUELS ENGINEERING MANAGER GRACY BARRY M.D.Performed By: #### UHCG #### [place] [address] USALon 52-54-3624QKshlbfml: [id number] Received: 07/07/23 Status: SUBHASH [place] Num: [id number] Spec Type: Surgical Subm Dr: Chava Crowe DO Tissues: A Uterus w/ or w/o tubes ovaries except neoplastic or prolap (CERVIX, MARIS TU Procedures: HE/, Gross/Micro L5 Age/ Patient Sex Location Account Attending Physician Jean CarlosNicolette Lonre 48/F [place] [id number] Chava Crowe DO SPEC NUM: [id number] RECD: 07/07/23 STATUS: SUBHASH [place] NUM: [id number] UMESH: 07/07/[address]: Chava Crowe DO ENTERED: 07/07/[address] [facility] [address]: SPEC TYPE: Surgical DEPT: S ORDERED: HE/12, Gross/Micro L5 ORDERED: HE, Gross/Micro L5 Pathological [...] is 3 cm in average thickness with Specimen: [id number] Received: 07/07/23 Status: SUBHASH [place] Num: [id number] Spec Type: Surgical Subm Dr: Chava Crowe DO Tissues: A Uterus w/ or w/o tubes ovaries except neoplastic or prolap (CERVIX, MARIS TU Procedures: , Gross/Micro L5 Patient: Nicolette Evangelista [id number] (Continued) Specimen: [id number] Received: 07/07/23 (Continued) Gross Description (Continued) Signed (signature on file) Erin Cardenas MD 07/10/23 1302 Specimen: [id number] Received: 07/07/23 Status: SUBHASH [place] Num: [id number] Spec Type: Surgical Subm Dr: Chava Crowe DO Tissues: A Uterus w/ or w/o tubes ovaries except neoplastic or prolap (CERVIX, MARIS TU Procedures: , Gross/Micro L5 Patient: Nicolette Evangelista [id number] (Continued) Specimen: [id number] Received: 07/07/23 (Continued) Gross Description [...] unilocular cyst filled with thin red-brown fluid. Animal Technician sections are submitted in 12 cassettes as follows: A1 - Posterior cul-de-sac serosa and sections of 2 largest intramural nodules A2 - Cervix (anterior and posterior) A3-A4 - Anterior endomyometrium with intramural nodules (largest with potential necrosis in A4 A5-A6 - Intramural nodules A7-A9 - Right adnexa with fimbria entirely submitted A10-A12 - Left adnexa with fimbria entirely submitted CPT Codes 60956 (more content not included)...NormalThe [facility] Physician GroupAutomated basophil %Ordered By: Chava Crowe on 51-96-8332Gcudzzohl/100 WBC (Bld)0.4 % Normal.Summa HealthComment on above:Performed By: #### CBC #### [place] [address] USAAutomated basophil countOrdered By: Chava Crowe on 71-61-4465Pagaxrezv (Bld) [#/Vol]0.0 10*3/uLNormal0.0-0.2FMercy Health Tiffin HospitalComment on above:Result Comment: PERFORMED BY: [place] [address] PATHOLOGIST BIOFUELS ENGINEERING MANAGER GRACY BARRY M.D.Performed By: #### CBC #### [place] [address] USAAutomated blood monocyte countOrdered By: Chava Crowe on 72-56-2422Rutpukpqb (Bld) [#/Vol]0.5 10*3/uLNormal0.0-0.8Summa HealthComment on above:Performed By: #### CBC #### [place] [address] USAAutomated eosinophil %Ordered By: Chava Crowe on 54-00-4772Bnktmrdhonp/100 WBC (Bld)0.7 %Normal.[facility] Comment on above:Performed By: #### CBC #### [place] [address] USAAutomated eosinophil countOrdered By: Chava Crowe on 22-69-9828Vjylzdhrysz (Bld) [#/Vol]0.1 10*3/uLNormal0.0-0.45Summa HealthComment on above:Performed By: #### CBC #### [place] [address] USAAutomated monocyte %Ordered By: Chava Crowe on 15-85-0806Mzhifdpej/100 WBC (Bld)4.9 %Normal.[facility] Comment on above:Performed By: #### CBC #### [place] [address] USAAutomated neutrophil %Ordered By: Chava Crowe on 00-48-8154Qooiqapvkht/100 WBC (Bld)68.8 %Normal.Summa HealthComment on above:Performed By: #### CBC #### [place] [address] USAComplete Blood Count Auto Diffon 38-98-1240Rbkt Corpuscular HGB Conc33.8 g/iRYnzabs48.0-35.0The [facility] Physician GroupComment on above:Performed By: #### CBC #### [place] [address] USANRBC%0.0 /100{WBC}Normal0-0.5The [facility]ician [facility] Comment on above:Performed By: #### CBC #### [place] [address] USAErythrocyte distribution width [Ratio] by Automated count Ordered By: Chava Crowe on 78-48-6145Faedvwyrlxu distribution width (RBC) [Ratio]13.7 %Jyhshx22.9-15.3FMercy Health Tiffin HospitalComment on above: Performed By: #### CBC #### [place] [address] USAErythrocytes [#/volume] in Blood by Automated countOrdered By: Chava Crowe on 27-83-9909NIX (Bld) [#/Vol]4.64 10*6/uLNormal3.60-5.00 Summa HealthComment on above:Performed By: #### CBC #### [place] [address] USAHematocrit [Volume Fraction] of Blood by Automated count Ordered By: Chava Crowe on 27-27-5875Zfaxlwmzsj (Bld) [Volume fraction]41.9 % Wepuvv23.0-46.4FMercy Health Tiffin HospitalComment on above:Performed By: #### CBC #### [place] [address] USAHemoglobin [Mass/volume] in BloodOrdered By: Chava Crowe on 75-53-9027Vkaqsumnfo (Bld) [Mass/Vol]14.1 g/mOEpsrrw47.8-15.4FMercy Health Tiffin HospitalComment on above:Performed By: #### CBC #### [place] [address] USALeukocytes [#/volume] corrected for nucleated erythrocytes in Blood by Automated counOrdered By: Chava Crowe on 73-91-7832DJG corrected for nucl RBC Auto (Bld) [#/Vol]9.3 10*3/uL3.8-11.6FMercy Health Tiffin HospitalLeukocytes [#/volume] in Blood by Automated countOrdered By: Chava Crowe on 94-25-3165BFA (Bld) [#/Vol]9.3 10*3/uLNormal3.8-11.6FMercy Health Tiffin HospitalComment on above:Performed By: #### CBC #### [place] [address] USALymphocytes [#/volume] in Blood by Automated countOrdered By: Chava Crowe on 80-25-0352Uayubgjunab (Bld) [#/Vol]2.4 10*3/uLNormal 1.00-4.8Summa HealthComment on above:Performed By: #### CBC #### [place] [address] USALymphocytes/100 leukocytes in Blood by Automated count Ordered By: Chava Crowe on 37-41-8486Szamvtkjrgh/100 WBC (Bld)25.2 %Normal. Summa HealthComment on above:Performed By: #### CBC #### [place] [address] USAMCH [Entitic mass] by Automated countOrdered By: Chava Crowe on 87-09-1390CQO (RBC) [Entitic mass]30.4 epBmjsgm62.7-34.3FMercy Health Tiffin HospitalComment on above:Performed By: #### CBC #### [facility] [address] [place], [place] [address]HC Auto (RBC) [Mass/Vol]Ordered By: Chava Crowe on 97-85-0314UNBJ (RBC) [Mass/Vol]33.8 g/dL32.0-35.0Summa HealthMCV [Entitic volume] by Automated countOrdered By: Chava Crowe on 98-59-3169YST (RBC) [Entitic vol]90.2 bLLgkbka39-271ZwivweuoySumma HealthComment on above:Performed By: #### CBC #### [facility] [address] [place] [address] USANeutrophils [#/volume] in Blood by Automated countOrdered By: Chava Crowe on 73-51-3428Fdazcezlgqz (Bld) [#/Vol]6.4 10*3/uLNormal1.8-7.7 Summa HealthComment on above:Performed By: #### CBC #### [facility] [address] [place] [address] USANucleated erythrocytes [Presence] in Blood by Automated countOrdered By: Chava Crowe on 40-71-6066Ovvqosnoo RBC Auto Ql (Bld)0.0 /100{WBC}0-0.5FMercy Health Tiffin HospitalPST Type and Screenon 06-22-2023 ABO and Rh group Nom (Bld)Blood group B Rh(D) positiveNoFormerly [facility] Physician GroupComment on above:Order Comment: Date of Surgery: [id number] Comment: PERFORMED BY: [place] [address] PATHOLOGIST BIOFUELS ENGINEERING MANAGER GRACY BARRY M.D.Platelet mean volume [Entitic volume] in Blood by Automated countOrdered By: Chava Crowe on 04-17-5890Psaqqzpa mean volume (Bld) [Entitic vol]7.8 fLNormal6.3-10.7FMercy Health Tiffin HospitalComment on above: Performed By: #### CBC #### [facility] [address] [place] [address] USAPlatelets [#/volume] in Blood by Automated countOrdered By: Chava Crowe on 09-28-4350Bqagtfvaa (Bld) [#/Vol]283 10*3/wBZrtsef241-061 Summa HealthComment on above:Performed By: #### CBC #### [facility] [address] [place] [address] USAPre-Certification Formon [id number]-Certification Form [id number]#1.00TIFBrecksville VA / Crille HospitalConsent for Procedure/Surgeryon 83-44-4573Utksjrd for Procedure/Surgery [id number] VA / Crille HospitalUrology Office/Clinic Noteon 44-65-4424Jjrpnbt Office/Clinic NoteChief Complaint Cysto/UD HPI Staff 48 year old female here for Cysto/ID History of Present Illness Tests reviewed: none. I have reviewed the previous health record information and history for this patient from Joselyn Hayes PA-C. I have reviewed and verified the [...] urine The Urethra was dilated to: 20-30 Arabic with sounds. Specimens Removed: None Removal: Cystoscope [...] FLEMING, JOSELYN Clark, URAutumn In 4 months [address] [facility] [place] [address] Additional Instructions: Patient Education I, Ara Mabry , personally scribed for Dr. Esparza on 06/20/2023 16:39:14. Electronically signedby scribeduardo Mabry on 06/20/2023 16:39:14. Documentation recorded by the scribe, Ara Mabry, accurately reflects the services(s) I performed and decisions made by me. Problem List/Past Medical History Ongoing Chronic cystitis Frequency of urination Hematuria Hyperlipidemia Hypothyroidism Kidney stones Nocturia Poor urinary stream Urethral stricture Urge incontinence Historical Breast cancer Lymphoblastic lymphoma Osteopenia STRESS FRACTURE RIGHT ANKLE Procedure/Surgical History Cystourethroscopy with dilation of urethral s (more content not included)... [facility]Comment [facility]:Result Comment: Electronically Signed By: Marshall ESPARZA MD\.br\Date and Time Signed: 06/20/23 16:42 EST\.br\Electronically Co-Signed By: Ara Mabry.br\Date and Time Co- Signed: 06/20/23 16:39 ESTInsurance Correspondenceon [id number] [id number] Health System Galion HospitalGLYCOHEMOGLOBIN A1Con [id number] RECOMMENDATIONSEE BELOW NormalThe Stilesville HospitalComment on above:Result Comment: ADA RECOMMENDED LIMIT 4.0 - 6.0 ADA THERAPEUTIC TARGET < 7.0 ACTION SUGGESTED > 7.0Performed By: #### A1C #### [facility] [address] [place] [address] Dr. Rosendo WilsonGlucose [Mass/Vol]137 mg/dLNoRegional Medical CenterComment on above:Performed By: #### A1C #### [facility] [address] [place] [address] Dr. Rosendo WilsonHbA1c (Bld) [Mass fraction]6.4 %Critically high4.5-6.2The [facility] HospitalComment on above:Performed By: #### A1C #### [facility] [address] [place] [address] Dr. Rosendo MontanezID PROFILEon [id number]-HDL RATIO NORMSEE BELOWOhio State Health SystemComment on above:Result Comment: 3.3 - 4.4 LOW RISK 4.4 - 7.1 AVERAGE RISK 7.1 - 11.0 MODERATE RISK >11.0 HIGH RISKPerformed By: #### TSHRFT4, LIPID, CMP #### [facility] [address] [place] [address] Dr. Rosendo Madridesterol [Mass/Vol]200 mg/dLNormal<=200The [facility] Comment on above:Performed By: #### TSHRFT4, LIPID, CMP #### [facility] [address] [place] [address] Dr. Rosendo WilsonCholesterol in HDL [Mass/Vol]67 mg/dLCritically brew05-50Nlk [facility] HospitalComment on above:Performed By: #### TSHRFT4, LIPID, CMP #### [facility] [address] [place] [address] Dr. Rosendo WilsonCholesterol in LDL [Mass/Vol]122.0 mg/dLNoRegional Medical CenterComment on above:Performed By: #### TSHRFT4, LIPID, CMP #### [facility] [address] [place] [address] Dr. Rosendo WilsonCholesterol.total/Cholesterol in HDL [Mass ratio]3.0 {ratio} NormalThe [facility] HospitalComment on above:Performed By: #### TSHRFT4, LIPID, CMP #### [facility] [address] [place] [address] Dr. Rosendo Morin NORMAL> or = 60 mg/dl - LOW CARDIOVASCULAR RISK <40 mg/dl - HIGH CARDIOVASCULAR RISKNoRegional Medical CenterComment on above:Performed By: #### TSHRFT4, LIPID, CMP #### [facility] [address] [address] [address] Rosendo WilsonLDL CALC NORMALSEE BELOWNoRegional Medical CenterComment on above:Result Comment: <100 mg/dl OPTIMAL 100 - 129 mg/dl NEAR OR ABOVE OPTIMAL 130 - 159 mg/dl BORDERLINE HIGH 160 - 189 mg/dl HIGH >190 mg/dl VERY HIGH Performed By: #### TSHRFT4, LIPID, CMP #### [facility] [address] [place] [address] Dr. Rosendo WilsonTriglyceride [Mass/Vol]55 mg/dLNormal<=150The [facility] Comment on above:Performed By: #### TSHRFT4, LIPID, CMP #### [facility] [address] [place] [address] Dr. Rosendo WilsonVLDL CALC11.0 mg/dLNoRegional Medical CenterComment on above: Performed By: #### TSHRFT4, LIPID, CMP #### [facility] [address] [place] [address] Dr. Rosendo WilsonPROKenzie 14(COMP METB)on 70-59-0620Brbsdba [Mass/Vol]3.3 g/dL Critically low3.4-5.0The [facility] HospitalComment on above:Performed By: #### TSHRFT4, LIPID, CMP #### [facility] [address] [place] [address] Dr. Rosendo WilsonAlbumin/Globulin [Mass ratio]0.8 {ratio}NormalThe [facility] HospitalComment on above:Performed By: #### TSHRFT4, LIPID, CMP #### [facility] [address] [address] [address] Rosendo Gee [Catalytic activity/Vol]91 U/HRoulsk69-756Gej [facility]view Medical Centerment on above:Performed By: #### TSHRFT4, LIPID, CMP #### [facility] [address] [place] [address] Dr. Rosendo Manuel [Catalytic activity/Vol]31 U/YWblrwg25-10Zlc [facility] HospitalComment on above:Performed By: #### TSHRFT4, LIPID, CMP #### [facility] [address] [place] [address] Dr. Rosendo Bonner gap [Moles/Vol]11.3 mmol/LNormalBarnesville Hospital Comment on above:Performed By: #### TSHRFT4, LIPID, CMP #### [facility] [address] [place] [address] Dr. Rosendo Tai [Catalytic activity/Vol]21 U/LAoowex69-36Ris [facility] HospitalComment on above:Performed By: #### TSHRFT4, LIPID, CMP #### [facility] [address] [place] [address] Dr. Rosendo WilsonBilirubin [Mass/Vol]0.4 mg/dLNormal0.2-1.0[facility] Comment on above:Performed By: #### TSHRFT4, LIPID, CMP #### [facility] [address] [place] [address] Dr. Rosendo WilsonCalcium [Mass/Vol]8.8 mg/dLNormal8.5-10.1[facility] Comment on above:Performed By: #### TSHRFT4, LIPID, CMP #### [facility] [address] [place] [address] Dr. Rosendo WilsonChloride [Moles/Vol]102 mmol/NLjbhpq83-400XcaBarnesville Hospital Comment on above:Performed By: #### TSHRFT4, LIPID, CMP #### [facility] [address] [place] [address] Dr. Yilan ChangCO2 [Moles/Vol]28.7 mmol/KHnztop45.0-32.0The [facility] Comment on above:Performed By: #### TSHRFT4, LIPID, CMP #### [facility] [address] [address] [address] Rosendo WilsonCreatinine [Mass/Vol]0.83 mg/dLNormal0.55-1.02The [facility] HospitalComment on above:Performed By: #### TSHRFT4, LIPID, CMP #### [facility] [address] [address] [address] Rosendo LeviGFR-AF FRENCH>60Normal>=60The [facility] HospitalComment on above:Performed By: #### TSHRFT4, LIPID, CMP #### [facility] [address] [place] [address] Dr. Rosendo LeviGFR-NON AF FRENCH>60Normal>=60The [facility] HospitalComment on above:Performed By: #### TSHRFT4, LIPID, CMP #### [facility] [address] [address] [address] Rosendo WilsonGlobulin (S) [Mass/Vol]4.3 g/dLNormalThe [facility] HospitalComment on above:Performed By: #### TSHRFT4, LIPID, CMP #### [facility] [address] [place] [address] Dr. Rosendo WilsonGlucose [Mass/Vol]114 mg/dLCritically myad09-177Uyo [facility] HospitalComment on above:Performed By: #### TSHRFT4, LIPID, CMP #### [facility] [address] [address] [address] Rosendo WilsonPotassium [Moles/Vol]4.0 mmol/LNormal3.5-5.1The [facility] Comment on above:Performed By: #### TSHRFT4, LIPID, CMP #### [facility] [address] [place] [address] Dr. Rosendo WilsonProtein [Mass/Vol]7.6 g/dLNormal6.4-8.2The [facility] Comment on above:Performed By: #### TSHRFT4, LIPID, CMP #### [facility] [address] [address] [address] Rosendo Arangoum [Moles/Vol]138 mmol/KGwiryq354-988Dls [facility] Comment on above:Performed By: #### TSHRFT4, LIPID, CMP #### [facility] [address] [place] [address] Dr. Rosendo Bautista nitrogen [Mass/Vol]22.0 mg/dLCritically high7.0-18.0The [facility] HospitalComment on above:Performed By: #### TSHRFT4, LIPID, CMP #### [facility] [address] [place] [address] Dr. Rosendo Bautista nitrogen/Creatinine [Mass ratio]26.5 mg/mgOhio State Health SystemComment on above:Performed By: #### TSHRFT4, LIPID, CMP #### [facility] [address] [place] [address] Dr. Rosendo Torres W/ REFLEX TO FT4on 92-00-7872YBN1.281 uIU/mLNormal0.358-3.740 The [facility] HospitalComment on above:Performed By: #### TSHRFT4, LIPID, CMP #### [facility] [address] [place] [address] Dr. Rosendo WilsonVITAMIN B12on 88-22-5137Iknyeroww (Vitamin B12) [Mass/Vol]601.0 pg/xRUunbpk692.0-986.0The [facility] HospitalComment on above:Performed By: #### VITAD, VITB12 #### [facility] [address] [place] [address] Dr. Rosendo WilsonVITAMIN D 25 OHon [id number] D 25-OH44.3 ng/mLNormalThe [facility] HospitalComment on above:Performed By: #### VITAD, VITB12 #### [facility] [address] [place] [address] Dr. Rosendo Hamilton RANGESSEE BELOWOhio State Health SystemComment on above: Result Comment: <20 ng/mL Vit D deficient 20 - <30 ng/mL Vit D insufficient 30 - 100 ng/mL Vit D sufficient >100 ng/mL Potential ToxicityPerformed By: #### VITAD, VITB12 #### [facility] [address] [place] [address] Dr. Rosendo WilsonHCG ( test) IA.rapid Ql (U)Ordered By: WERNER MALIK on [id number] ( test) Ql (U)NegativeSumma Health TESTOSTERONE, FREE,DIRECT, TOTALon [id number] Testosterone(Direct)1.1 pg/mL Normal0.0-4.2The [facility] HospitalComment on above:Result Comment: Performed at: BNPerformed By: #### TESTFRD #### [facility] [address] [place] [address] Dr. Rosendo WilsonTestosterone [Mass/Vol]23 ng/dLNormal4-50The [facility] Comment on above:Result Comment: Performed at: CBPerformed By: #### TESTFRD #### [facility] [address] [place] [address] Dr. Rosendo WilsonINSULINon 50-78-0869Neghals90.4 uIU/mLNormal2.6-24.9The [facility] HospitalComment on above:Performed By: #### INSULIN #### [facility] [address] [place] [address] Dr. Rosendo WilsonXR KUB 1 VIEWon [id number] KUB 1 VIEWEXAMINATION: XR KUB 1 VIEW HISTORY: Kidney stone [...] Electronically authenticated by: WERNER BREAUX Date: 2022-04-18 07:[address] [place] [address] Vital Signs Date TimeVital SignValuePerforming FlamrjgsdDieqrgos48-36-0290 15:21-0400Body guwwrp539.1 cmVrosi Quezadaillo DENTAL LABORATORY SUPERVISOR-C Work Phone: [phone]10-30-2025 15:21-0400 Body mass index (BMI) [Ratio]27.6 kg/c2Tgfkllr Dumont DENTAL LABORATORY SUPERVISOR-C Work Phone: [phone]10-30-2025 15:21-0400 Body azkpeu51.75 kgHenok Dumont DENTAL LABORATORY SUPERVISOR-C Work Phone: [phone] [place], [place] 7904010-30-2025 15:21-0400 Diastolic blood lqfvwfmu58 mm[Hg]Henok Dumont DENTAL LABORATORY SUPERVISOR-C Work Phone: [phone] [place], [place] 7904010-30-2025 15:21-0400 Heart rate80 /minJackierie Dumont DENTAL LABORATORY SUPERVISOR-C Work Phone: [phone] [place], [place] 9735210-30-2025 15:21-0400 Respiratory rate18 /minJackierie Dumont DENTAL LABORATORY SUPERVISOR-C Work Phone: [phone]10-30-2025 15:21-0400 SaO2% (BldA) [Mass fraction]95 %Henok Dumont DENTAL LABORATORY SUPERVISOR-C Work Phone: [phone]10-30-2025 15:21-0400 Systolic blood smgfizkg896 mm[Hg]Henok Dumont DENTAL LABORATORY SUPERVISOR-C Work Phone: [phone] [place], [place] 9735210-21-2025 15:44-0400 Body woeigk048.7 cmKyle Deandreirinazer DIE PRESSER-DEVELOPMENT TECHNOLOGIST Work Phone: [facility] CenterVideo PassportsNorth [facility]10-21-2025 15:44-0400Body mass index (BMI) [Ratio]26.74 kg/m2Kyle Deandreotzer DIE PRESSER-DEVELOPMENT TECHNOLOGIST Work Phone: [facility] CenterAnuway Corporation Lbnzuc98-60-9407 15:44-0400Body pmdecfgkrtd64.81 [degF]Logan Lombardi DIE PRESSER-DEVELOPMENT TECHNOLOGIST Work Phone: [facility] CenterBottle10-21-2025 15:44-0400Body eqjyot45.74 kgLogan Lombardi DIE PRESSER-DEVELOPMENT TECHNOLOGIST Work Phone: [facility] CenterBottle10-21-2025 15:44-0400Diastolic blood nrxuifcu57 mm[Hg]Logan Lombardi DIE PRESSER-DEVELOPMENT TECHNOLOGIST Work Phone: [facility] CenterBottle10-21-2025 15:44-0400Heart rate 83 /minLogan Messinazer DIE PRESSER-DEVELOPMENT TECHNOLOGIST Work Phone: [facility] CenterBottle10-21-2025 15:44-0400 Respiratory rate18 /minLogan Lombardi DIE PRESSER-DEVELOPMENT TECHNOLOGIST Work Phone: [facility] HospitalAccuRev10-21-2025 15:44-2007LjV0% (BldA) [Mass fraction]95 %Logan Lombardi DIE PRESSER-DEVELOPMENT TECHNOLOGIST Work Phone: [facility] CenterBottle10-21-2025 15:44-0400Systolic blood phggehbu802 mm[Hg]Logan Lombardi DIE PRESSER-DEVELOPMENT TECHNOLOGIST Work Phone: [facility] [employer] Wfikeh60-35-3291 15:19-0400Body .2 cmAung Day [employer] Work Phone: [facility]arMer[facility] hospital springfieldEgwrvvgupm15-22-6325 15:19-0400Body mass index (BMI) [Ratio]27.57 kg/n9TtzdnAung Day DO Work Phone: JunarMercy hospital springfieldUynydqhgyu83-38-4552 15:19-0400Body jvjquz75.83 kgAung Day [employer] Work Phone: noMercy hospital springfieldGpnbrluzkl18-55-0771 15:10-0400Body iiexor607 cm Henok POLK Work Phone: [facility]08-14-2025 15:10-0400 Body mass index (BMI) [Ratio]27.1 kg/q2Bmlyiab Dumont DENTAL LABORATORY SUPERVISOR-C Work Phone: [phone]08-14-2025 15:10-0400 Body .55 kgJackierie Dumont DENTAL LABORATORY SUPERVISOR-C Work Phone: [facility]08-14-2025 15:10-0400 Diastolic blood ojozyqhi73 mm[Hg]Henok Quezadaillo DENTAL LABORATORY SUPERVISOR-C Work Phone: [phone]08-14-2025 15:10-0400 Heart rate85 /minJackierie Dumont DENTAL LABORATORY SUPERVISOR-C Work Phone: [phone] [place], [place] 9735208-14-2025 15:10-0400 Respiratory rate18 /minJackierie Dumont DENTAL LABORATORY SUPERVISOR-C Work Phone: [phone] [place], [place] 9735208-14-2025 15:10-0400 SaO2% (BldA) [Mass fraction]97 %Henok Dumont DENTAL LABORATORY SUPERVISOR-C Work Phone: [phone]08-14-2025 15:10-0400 Systolic blood smvibdel603 mm[Hg]Henok Quezadaillo DENTAL LABORATORY SUPERVISOR-C Work Phone: [phone]07-31-2025 15:19-0400 Body ujtohf615.2 cmAung Ze [employer] DO Work Phone: [phone] CenterIdhoncugji00-49-0998 15:19-0400Body mass index (BMI) [Ratio]27.57 kg/t1Cypxs Brown DO Work Phone: [phone] CenterGnmltahkck65-93-1119 15:19-0400Body ikhzss73.83 kgAung Day DO Work Phone: [facility] CenterQnjenqvpwg05-58-3605 15:43-0400Body vwshah362.21 cmVrosi Quezadaillo DENTAL LABORATORY SUPERVISOR-C Work Phone: [facility]06-17-2025 15:43-0400 Body mass index (BMI) [Ratio]27.3 kg/u3Qyspgzi Dumont DENTAL LABORATORY SUPERVISOR-C Work Phone: [facility]06-17-2025 15:43-0400 Body .05 kgHenok Dumont DENTAL LABORATORY SUPERVISOR-C Work Phone: [phone]06-17-2025 15:43-0400 Diastolic blood ncgpypwl51 mm[Hg]Henok Dumont DENTAL LABORATORY SUPERVISOR-C Work Phone: [phone]06-17-2025 15:43-0400 Heart rate76 /minHenok Quezadaillo DENTAL LABORATORY SUPERVISOR-C Work Phone: [phone]06-17-2025 15:43-0400 Respiratory rate18 /minHenok Quezadaillo DENTAL LABORATORY SUPERVISOR-C Work Phone: [phone]06-17-2025 15:43-0400 SaO2% (BldA) [Mass fraction]96 %Henok Dumont DENTAL LABORATORY SUPERVISOR-C Work Phone: [phone]06-17-2025 15:43-0400 Systolic blood aqocbhzm924 mm[Hg]Henok Dumont DENTAL LABORATORY SUPERVISOR-C Work Phone: [facility]06-04-2025 15:43-0400 Body vwbziq561.7 cmAdeliaholly Vegas DO Work Phone: [facility]06-04-2025 15:43-0400Body mass index (BMI) [Ratio]26.92 kg/m2Franco Yusergios DO Work Phone: [facility]06-04-2025 15:43-0400Body qkkrizexfkx02.7 [degF]Franco Garys DO Work Phone: [facility] [employer] Xqktnf33-01-3263 15:43-0400Body zucvnh66.29 kgFranco Valariehas DO Work Phone: [facility]06-04-2025 15:43-0400Diastolic blood evtnnins51 mm[Hg]Franco Kingstonsergios DO Work Phone: [facility]06-04-2025 15:43-0400Heart rate 84 /Juan Whitmore DO Work Phone: [facility]06-04-2025 15:43-0400 Respiratory rate18 /Juan Whitmore DO Work Phone: [facility]06-04-2025 15:43-5619GxL6% (BldA) [Mass fraction]98 %Franco Whitmore DO Work Phone: [facility]06-04-2025 15:43-0400Systolic blood ousfyhhv352 mm[Hg]Franco Whitmore DO Work Phone: [facility]04-22-2025 15:16-0400Body olsxfs772.41 cmSumma Health04-22-2025 15:16-0400Body mass index (BMI) [Ratio]27.8 kg/l1JvdrzyjwbSumma Health04-22-2025 15:16-0400Body jtuyzg35.05 kgSum[facility] Health04-22-2025 15:16-0400Diastolic blood cbdakmcp12 mm[Hg][facility] 10-08-2024 15:16-0400Heart rate78 /[facility] 10-08-2024 15:16-0400Respiratory rate18 /[facility] 10-08-2024 15:16-0158EeA7% (BldA) [Mass fraction]96 %[facility]04-22-2025 15:16-0400Systolic blood mytgbore792 mm[Hg][facility]02-24-2025 15:22-0500Body mass index (BMI) [Ratio]27.72 kg/m2 Tsering Velez MD Work Phone: [facility] CenterYanlddrkjk57-38-8265 15:22-0500Body fjtsok26.29 kgTsering Velez MD Work Phone: [facility] CenterWpkiomntcs99-84-3004 15:22-0500Diastolic blood xclwqoyt22 mm[Hg]Tsering Velez MD Work Phone: [facility] CenterFuisggbezf44-95-9852 15:22-0500Systolic blood veevbczr673 mm[Hg]Tsering Velez MD Work Phone: [facility] CenterGzdunwzjal16-89-6066 15:15-0500Body hoihhb135.72 cmSum[facility] Health02-18-2025 15:15-0500Body mass index (BMI) [Ratio]27.2 kg/k2GoiqceyooSumma Health02-18-2025 15:15-0500Body upzeqc43.3 kgSumma Health02-18-2025 15:15-0500Diastolic blood qeogetml17 mm[Hg][facility]02-18-2025 15:15-0500 Heart rate89 /[facility]02-18-2025 15:15-0500 Respiratory rate18 /[facility]02-18-2025 15:15-0500 SaO2% (BldA) [Mass fraction]96 %[facility]02-18-2025 15:15-0500Systolic blood arkwveej202 mm[Hg][facility] 06-10-2024 14:09-0500Body muhexe604.72 cmSum[facility] Health 06-10-2024 14:09-0500Body mass index (BMI) [Ratio]26.7 kg/s7PwuqkmqanSumma Health12-23-2024 14:09-0500Body .83 kgSumma Health12-23-2024 14:09-0500Diastolic blood adhidady05 mm[Hg][facility]12-23-2024 14:09-0500Heart rate99 /[facility]12-23-2024 14:09-0500Respiratory rate18 /[facility]12-23-2024 14:09-3797HtG9% (BldA) [Mass fraction]95 %[facility]12-23-2024 14:09-0500Systolic blood ihndzlwt717 mm[Hg][facility]12-05-2024 15:05-0500Blood Pressure LocationJEBERNARDA LAZ [facility]12-05-2024 15:05-0500Body qunplwprmjz50.6 [degF]JOSELYN HAYES [facility]12-05-2024 15:05-0500Diastolic blood mm[Hg]JOSELYN HAYES [facility]12-05-2024 15:05-0500Heart rate78 /minJENNIFER LAZ [facility]12-05-2024 15:05-0500Respiratory rate18 /minJENNIFER LAZ [facility]12-05-2024 15:05-0500Systolic blood ktyrzzpq868 mm[Hg]JOSELYN HAYES [facility]11-14-2024 15:24-0500Body lcykde076.72 cmSumma Health11-14-2024 15:24-0500Body mass index (BMI) [Ratio]27 kg/p2FiyfyutnoSumma Health11-14-2024 15:24-0500Body ekzkaq27.73 kgSumma Health11-14-2024 15:24-0500Diastolic blood cooowdrk66 mm[Hg] [facility]11-14-2024 15:24-0500Heart rate85 /[facility]11-14-2024 15:24-0500Respiratory rate18 /[facility]11-14-2024 15:24-9224DzN2% (BldA) [Mass fraction]95 % [facility]11-14-2024 15:24-0500Systolic blood mm[Hg][facility]10-17-2024 15:29-0400Body pwqmup679.7 cm Henok Dumont DIE PRESSER-DEVELOPMENT TECHNOLOGIST Work Phone: [facility]10-17-2024 15:29-0400Body mass index (BMI) [Ratio]26.94 kg/q5QzhymvoHenok Dumont APRN-DEVELOPMENT TECHNOLOGIST Work Phone: [facility]10-17-2024 15:29-0400Body fkxahynreiz64.2 [degF]Henok Dumont APRN-DEVELOPMENT TECHNOLOGIST Work Phone: [facility]10-17-2024 15:29-040Body xkaegl15.38 kgHenok Dumont APRN-DEVELOPMENT TECHNOLOGIST Work Phone: [facility]10-17-2024 15:29-0400Diastolic blood ouesbpdn51 mm[Hg]Henok Dumont APRN-DEVELOPMENT TECHNOLOGIST Work Phone: [facility]10-17-2024 15:29-0400Heart rate 85 /minHenok Dumont APRN-TEJAL Work Phone: [facility]10-17-2024 15:29-0400 Respiratory rate18 /minHenok Dumont APRN-TEJAL Work Phone: [facility]10-17-2024 15:29-3896HwV2% (BldA) [Mass fraction]97 %Henok Dumont APRN-DEVELOPMENT TECHNOLOGIST Work Phone: [facility]10-17-2024 15:29-0400Systolic blood mbfnpope296 mm[Hg]Henok Dumont APRN-DEVELOPMENT TECHNOLOGIST Work Phone: [facility]09-19-2024 15:08-0400Body dqnxzo078.72 cmSum[facility] Health09-19-2024 15:08-0400Body mass index (BMI) [Ratio]26.9 kg/q3SuiyvmtviSumma Health09-19-2024 15:08-0400Body llplux57.45 kgSum[facility] Health09-19-2024 15:08-0400Diastolic blood ovwofkqb89 mm[Hg][facility] 03-07-2024 15:08-0400Heart rate92 /[facility] 03-07-2024 15:08-0400Respiratory rate18 /[facility] 03-07-2024 15:08-7499AtG9% (BldA) [Mass fraction]96 %[facility]09-19-2024 15:08-0400Systolic blood lpuabhgm657 mm[Hg][facility]07-25-2024 14:41-0400Body fyuaep609.72 cmSumma Health07-25-2024 14:41-0400Body mass index (BMI) [Ratio]27.1 kg/m2 [facility]07-25-2024 14:41-0400Body .82 kg [facility]07-25-2024 14:41-0400Diastolic blood lituxowm65 mm[Hg][facility]07-25-2024 14:41-0400Heart rate85 /min [facility]07-25-2024 14:41-0400Respiratory rate18 /min [facility]07-25-2024 14:41-7970GmS3% (BldA) [Mass fraction]95 %[facility]07-25-2024 14:41-0400Systolic blood nuzlcydy383 mm[Hg][facility]06-12-2024 14:22-0400 Body mjrqyc293.7 cmVcbeduardo QuezadaDumontquincy HO-DEVELOPMENT TECHNOLOGIST Work Phone: [facility]06-12-2024 14:22-0400Body mass index (BMI) [Ratio]27.84 kg/a0Ztpcbky Tim DIE PRESSER-DEVELOPMENT TECHNOLOGIST Work Phone: [facility]06-12-2024 14:22-0400Body agnmsjeolbi76.01 [degF]Henok Tim DIE PRESSER-DEVELOPMENT TECHNOLOGIST Work Phone: [facility]06-12-2024 14:22-0400Body xlathc52.05 kgValerie Dumont DIE PRESSER-DEVELOPMENT TECHNOLOGIST Work Phone: [facility]06-12-2024 14:22-0400Diastolic blood ebkmgruo11 mm[Hg]Henok Dumont APRN-DEVELOPMENT TECHNOLOGIST Work Phone: [facility]06-12-2024 14:22-0400Heart rate 95 /minHenok Dumont APRN-DEVELOPMENT TECHNOLOGIST Work Phone: [facility]06-12-2024 14:22-0400 Respiratory rate18 /minHenok Dumont APRN-DEVELOPMENT TECHNOLOGIST Work Phone: [facility]06-12-2024 14:22-0302RpJ2% (BldA) [Mass fraction]95 %Henok Dumont APRN-TEJAL Work Phone: [facility]06-12-2024 14:22-0400Systolic blood dtvsofdb983 mm[Hg]Henok Dumont APRN-TEJAL Work Phone: [facility]06-04-2024 16:02-0400Heart rate 98 /[facility]06-04-2024 15:32-0400Body bwhkku111.72 [facility]06-[facility]-2024 15:32-0400Body mass index (BMI) [Ratio]27.8 kg/a4GzblckfiySumma Health06-04-2024 15:32-0400Body uztnfj75.09 kgSum[facility]06-04-2024 15:32-0400Diastolic blood tcywonxj37 mm[Hg][facility]06-04-2024 15:32-0400 Respiratory rate18 /[facility]06-04-2024 15:32-0400 SaO2% (BldA) [Mass fraction]93 %[facility]06-04-2024 15:32-0400Systolic blood magogsmg651 mm[Hg][facility] 10-10-2023 15:42-0400Body omiksf826.72 cmSum[facility] 10-10-2023 15:42-0400Body mass index (BMI) [Ratio]29.5 kg/i7GcqaztpiqSumma Health04-23-2024 15:42-0400Body xbkjbe98.22 kgSum[facility] Health04-23-2024 15:42-0400Diastolic blood cxzdulji75 mm[Hg][facility]04-23-2024 15:42-0400Heart rate71 /[facility]04-23-2024 15:42-0400Respiratory rate18 /[facility]04-23-2024 15:42-3989XxG9% (BldA) [Mass fraction]98 %[facility]04-23-2024 15:42-0400Systolic blood ixvmdkob890 mm[Hg][facility]02-20-2024 15:10-0500Body vgrnsi165.72 cmDO Musa Evangelista Work Phone: [phone]-[facility]02-20-2024 15:10-0500 Body mass index (BMI) [Ratio]28.1 kg/m2DO Musa Evangelista Work Phone: [phone]-[facility]02-20-2024 15:10-0500 Body pljjub73.91 kgDO Musa Evangelista Work Phone: [facility]02-20-2024 15:10-0500 Diastolic blood eyybmdot37 mm[Hg]DO Musa Evangelista Work Phone: [facility]02-20-2024 15:10-0500 Heart rate96 /ShirinGwen Musa Jean Carlos Work Phone: [facility]02-20-2024 15:10-0500 Respiratory rate18 /ShirinGwen Vigil Jean Carlos Work Phone: [facility]02-20-2024 15:10-0500 SaO2% (BldA) [Mass fraction]95 %DO Musa Jean Carlos Work Phone: [facility]02-20-2024 15:10-0500 Systolic blood oxbotfkw687 mm[Hg]DO Musajon Evangelista Work Phone: [phone] [place], [place] 7174501-19-2024 15:51-0500 Body dkgchicsquh04 [degF]DO Musa Evangelista Work Phone: [phone]01-19-2024 15:51-0500 Diastolic blood mjgsqozj98 mm[Hg]DO Musa Evangelista Work Phone: [phone])[address]01-19-2024 15:51-0500 Heart rate86 /Ani Evangelista Work Phone: [phone])[address]01-19-2024 15:51-0500 Respiratory rate20 /Ani Evangelista Work Phone: [phone])[address]01-19-2024 15:51-0500 SaO2% (BldA) [Mass fraction]93 %DO Musa Evangelista Work Phone: [phone]01-19-2024 15:51-0500 Systolic blood mm[Hg]DO Musa Evangelista Work Phone: [phone])[address]01-19-2024 12:05-0500 Inhaled oxygen flow rate2 L/Ani Evangelista Work Phone: [phone])[address]01-19-2024 07:26-0500 Body ecbamo536.72 cmDO Musa Evangelista Work Phone: 1(376)[address]01-19-2024 07:26-0500 Body mass index (BMI) [Ratio]28.8 kg/m2DO Musa Evangelista Work Phone: [phone] [place], [place] 7174501-19-2024 07:26-0500 Body cjkiil41.8 kgDO Musa Evangelista Work Phone: 1(145)7-[address] [place], [place] 7174512-26-2023 09:45-0500 Body qbhmyj695.72 cmDemilagrosremy Linda Other [facility]12-26-2023 09:45-0500 Body mass index (BMI) [Ratio]28.4 kg/y5Iztmpdv Scally Other [employer] Other 12-26-2023 09:45-0500Body tvojvo67.73 kgDeborah Scally Other [facility]12-26-2023 09:45-0500 Diastolic blood rybpjgfs40 mm[Hg]Viktoria Scally Other [facility]12-26-2023 09:45-0500 Respiratory rate18 /minDeborah Scally Other [employer] Other 12-26-2023 09:45-9608SsT5% (BldA) [Mass fraction]95 % Viktoria Scally Other [employer] Other 12-26-2023 09:45-0500Systolic blood eszfsibi681 mm[Hg] Viktoria Scally Other [facility]10-30-2023 15:30-0400 Body aoqynq145.72 cmDeborah Scally Other [employer] Other 10-30-2023 15:30-0400Body mass index (BMI) [Ratio]29.4 kg/p9Scpixwf Scally Other [employer] Other 10-30-2023 15:30-0400Body misqgf24.73 kgDeborah Scally Other [employer] Other 10-30-2023 15:30-0400Diastolic blood mm[Hg] Viktoria Scally Other [employer] Other 10-30-2023 15:30-0400Respiratory rate18 /minDeborah Scally Other [employer] Other 10-30-2023 15:30-2887KqH7% (BldA) [Mass fraction]95 % Viktoria Scally Other [employer] Other 10-30-2023 15:30-0400Systolic blood ltzprpuy992 mm[Hg] Viktoria Scally Other [employer] Other 08-30-2023 15:00-0400Body .72 cmDeborah Grecialy Other [employer] Other 08-30-2023 15:00-0400Body mass index (BMI) [Ratio] 30.71 kg/z7Itjylxj Grecialy Other [employer] Other 08-30-2023 15:00-0400Body vgjgwe46.63 kgDeborah Grecialy Other [employer] Other 08-30-2023 15:00-0400Diastolic blood pznmyafd04 mm[Hg] Viktoria Scally Other [employer] Other 08-30-2023 15:00-0400Respiratory rate18 /minDeborah Scally Other [employer] Other 08-30-2023 15:00-6007VeT1% (BldA) [Mass fraction]94 % Viktoria Scally Other [employer] Other 08-30-2023 15:00-0400Systolic blood xvnbjkyd613 mm[Hg] Viktoria Scally Other [employer] Other 08-28-2023 15:15-0400Body ejxcak763.72 cmDawn Fitt Other [employer] Other 08-28-2023 15:15-0400Body mass index (BMI) [Ratio] 30.76 kg/m2Dawn Fitt Other [employer] Other 08-28-2023 15:15-0400Body bplcto07.76 kgDawn Fitt Other [employer] Other 07-11-2023 15:00-0400Body .72 cmDeborah Scally Other [employer] Other 07-11-2023 15:00-0400Body mass index (BMI) [Ratio] 30.91 kg/g1Jzpezog Scally Other [employer] Other 07-11-2023 15:00-0400Body szeynj43.22 kgDeborah Scally Other [employer] Other 07-11-2023 15:00-0400Diastolic blood qjwcjdoz12 mm[Hg] Viktoria Scally Other [employer] Other 07-11-2023 15:00-0400Respiratory rate18 /minDeborah Scally Other [employer] Other 07-11-2023 15:00-1847WrK4% (BldA) [Mass fraction]95 % Viktoria Scally Other [facility] Other 07-11-2023 15:00-0400Systolic blood lnrpsjev087 mm[Hg] Viktoria [place] Other [facility] Other [id number] 11:13-0500Diastolic blood qtoqypji05 mm[Hg] DO Musa Evangelista Work Phone: [facility]02-10-2023 11:13-0500 Heart rate76 /Ani Evangelista Work Phone: 1(365)315-[facility]02-10-2023 11:13-0500 Respiratory rate16 /Ani Evangelista Work Phone: 1(841)347-[facility]02-10-2023 11:13-0500 SaO2% (BldA) [Mass fraction]93 %DO Musa Evangelista Work Phone: [phone]-[facility]02-10-2023 11:13-0500 Systolic blood pgzoyhvg949 mm[Hg]DO Musa Evangelista Work Phone: [phone]-[facility]02-10-2023 10:17-0500 Body tzbies687.72 cmDO Musa Evangelista Work Phone: [phone]-[facility]02-10-2023 10:17-0500 Body mass index (BMI) [Ratio]27.4 kg/m2DO Musa Evangelista Work Phone: [phone]-[facility]02-10-2023 10:17-0500 Body kgDO Musa Evangelista Work Phone: [phone]-[facility]02-10-2023 08:56-0500 Body ujvhzvoacxq85.3 [degF]DO Musa Evangelista Work Phone: [facility]11-09-2022 15:11-0500 Blood Pressure LocationJENNHONORHE[facility] LAZ [facility]11-09-2022 15:11-0500Diastolic blood pqmahean87 mm[Hg]JOSELYN HAYES [facility]11-09-2022 15:11-0500Heart rate72 /minJOSELYN HAYES [facility]11-09-2022 15:11-0500Systolic blood gdsliqyz193 mm[Hg]JOSELYN HAYES [facility] Encounters Encounter DateEncounter TypeCare ProviderFacilityStart: 04-17-2025 End: 23-74-3593nlmyxsoeqjTgpivkx J Castillo NP-C Work Phone: [phone]-OAWDRyfow: 04-17-2025 End: 06-50-3921Xkediia encounter procedureDematt [place] DIE PRESSER-FCCC Work Phone: Start: 04-08-2025 End: 39-50-7126Jaugpjl encounter statusKymikey Lombardi DIE PRESSER-DEVELOPMENT TECHNOLOGIST Work Phone: [facility] CenterAnuway Corporation SystemStart: 04-08-2025 End: 28-68-4125Qnpprtqj preventive med est patient 40-64yrsKyle Joy Lombardi DIE PRESSER-DEVELOPMENT TECHNOLOGIST Work Phone: [facility] - Family MedicineComment on above:Adult wellness visit (Primary Dx); Blood tests for routine general physical examination; Screening for diabetes mellitusStart: 04-08-2025 End: 71-19-7771Raoqfhyd examinationKyle Joy Lombardi DIE PRESSER-DEVELOPMENT TECHNOLOGIST Work Phone: [facility] CenterAnuway Corporation SystemStart: 04-02-2025 End: 97-29-5244JxaaauLcky Joy Lombardi DIE PRESSER-DEVELOPMENT TECHNOLOGIST Work Phone: [facility] - Family MedicineComment on above:Degenerative tear of lateral meniscus, leftStart: 03-18-2025 End: 74-88-4562azcivgmhwpAQAVB A BROWNNot AvailableStart: 03-18-2025 End: 35-68-7093Ywddoak encounter procedureAung Emily Dontrell DO Work Phone: [facility] [place] [facility] OrthopaedicsComment on above:Left knee pain, unspecified chronicityStart: 03-18-2025 End: 13-03-9837Cgtoln flowsheetAung Diaz Brown DO Work Phone: [facility] [place] [facility] OrthopaedicsStart: 03-18-2025 End: 54-89-3209Zxuqre flowsheetAung Day DO Work Phone: [facility] [place] [facility] OrthopaedicsStart: 03-04-2025 End: 53-49-4794QzonscSeso L Edgar DO Work Phone: [facility] - Family MedicineComment on above:Degenerative tear of lateral meniscus, leftStart: 02-04-2025 End: 08-66-3027KdzsdbTuar L Yukarine DO Work Phone: [facility] - Family MedicineComment on above:Degenerative tear of lateral meniscus, leftStart: 01-30-2025 End: 15-51-9389wiicyzqwlkLsmkpfuAnurag POLK Work Phone: [facility] Work Phone: Start: 01-30-2025 End: 63-65-7049Kdezufl encounter procedureViktoria [place] APRACOMA[facility] Work Phone: Start: 01-16-2025 End: 40-67-4615Gdlcxir encounter procedureAung Day DO Work Phone: [facility] [place] OrthopaedicsComment on above:Left knee pain, unspecified chronicity (Primary Dx)Start: 01-16-2025 End: 19-64-4289ikoqujqkwcOSKYK A BROWNNot AvailableStart: 01-16-2025 End: 74-66-1207gppqjpyyvrFYSPC A BROWNNot AvailableStart: 01-14-2025 End: 64-92-3361wqjdekukjgTVAACOY J CASTILLOFacility:EU [place]kyStart: 01-14-2025 End: 29-87-7664Yfsflth encounter procedurePatricmarcus ESPARZA [facility] [place] Start: 01-08-2025 End: 11-57-9086bbpkuvkgrvWqrwhff Kelbley PTANOMS CI PTComment on above:Acute pain of left knee (Primary Dx)Start: 01-08-2025 End: 64-61-0772Tcmasy flowsheetMelissa Kelbley PTANOMS CI PTStart: 01-08-2025 End: 21-44-0709Vqkuww flowsheetMelissa Kelbley PTANOMS CI PTStart: 12-30-2024 End: 85-31-6491rwnuzjkqsqBsjleh T Blackston PT Work Phone: [facility] CI PTComment on above:Acute pain of left knee (Primary Dx)Start: 12-30-2024 End: 92-07-1386Bkdcbp Emerald Rausch PT Work Phone: [facility] CI PTStart: 12-30-2024 End: 26-48-3786Oeurro Emerald Rausch PT Work Phone: n[facility] CI PTStart: 12-16-2024 End: 28-06-0244zodrwykempKinhcgfk Brink PTANOMS CI PTComment on above:Acute pain of left knee (Primary Dx)Start: 12-16-2024 End: 29-78-2006Yawkuz flowsheetMarshall Brink PTANOMS CI PTStart: 12-16-2024 End: 34-14-2710Pjqdeg flowsheetMarshall Brink PTANOMS CI PTStart: 12-12-2024 End: 35-89-3998stmbrmtsijMtitefb Kelbley PTANOMS CI PTComment on above:Acute pain of left knee (Primary Dx)Start: 12-12-2024 End: 90-71-0224Sslxrt flowsheetMelissa Kelbley PTANOMS CI PTStart: 12-12-2024 End: 93-00-0858Hbhgqa flowsheetMelissa Kelbley PTANOMS CI PTStart: 12-10-2024 End: 64-74-6650ikhsbojeguEkjmlai Kelbley PTANOMS CI PTComment on above:Acute pain of left knee (Primary Dx)Start: 12-10-2024 End: 13-61-8826Phpljm flowsheetMelissa Kelbley PTANOMS CI PTStart: 12-10-2024 End: 03-35-7601Elvqck flowsheetMelissa Kelbley PTANOMS CI PTStart: 12-05-2024 End: 18-90-2773xfzxkgdvjcVvrcuhq Kelbley PTANOMS CI PTComment on above:Acute pain of left knee (Primary Dx)Start: 12-05-2024 End: 37-99-7364Yywbxm flowsheetMelissa Kelbley PTANOMS CI PTStart: 12-05-2024 End: 43-90-7295Lswzyd flowsheetMelissa Kelbley PTANOMS CI PTStart: 12-03-2024 End: 94-58-3306Wycwpkd encounter procedureViktoria [place] [facility] Work Phone: Start: 11-28-2024 End: 78-44-9308ufnnqqmwybNvhqfb T Blackston PT Work Phone: noMS CI PTComment on above:Acute pain of left knee (Primary Dx)Start: 11-28-2024 End: 32-76-6244Kcxlhl Emerald Rausch PT Work Phone: noMS CI PTStart: 11-28-2024 End: 58-28-3525Arojfc Emerald Rausch PT Work Phone: noMS CI PTStart: 11-25-2024 End: 26-54-0865qotzgvtjanKGIBIAF CASTILLOFacility:EU [place]vueStart: 11-25-2024 End: 25-60-2972Fuardiw encounter procedureMarshall ESPARZA [facility] [place] start: 11-20-2024 End: 59-54-8310Knzsuz outpatient visit 25 minutesJoholly Whitmore DO Work Phone: [facility] - Family MedicineComment on above:Degenerative tear of lateral meniscus, left (Primary Dx); Herpes zoster without complicationStart: 10-08-2024 End: 26-05-5359snufxlcgqnHofjpxgzeCherrington Hospital Work Phone: Start: 10-08-2024 End: 21-92-4834Ltgtyxk encounter procedureF[facility] Physician [facility] Work Phone: Start: 09-11-2024 End: 35-69-2686acitqjsoipOvskug GhazoulFacility:BMSStart: 09-08-2024 End: 40-68-0024SxnmfzKwypxff J Castillo APRN-[facility] Work Phone: [facility] - Family MedicineComment on above:Postoperative hypothyroidismStart: 08-12-2024 End: 17-51-4844Voorjer encounter statusTsering Velez MD Work Phone: noms HealthcareStart: 08-12-2024 End: 80-98-4208Ddcgzivx preventive med est patient 40-64yrsPenola Guanakito Velez MD Work Phone: [facility] OBComment on above:Encounter for screening for cervical cancer (Primary Dx); Encounter for gynecological examination without abnormal finding; Hx of hysterectomyStart: 08-12-2024 End: 68-79-1718ynctwbgkaxVAGWFX P JONESNot AvailableStart: 08-06-2024 End: 42-15-0189syxzawlvmbGqlzvibocCherrington Hospital Work Phone: Start: 08-06-2024 End: 96-74-8202Hnxdils encounter procedureFirbon [facility] Physician GroupUNIVERSITY [facility] Work Phone: Start: 06-10-2024 End: 77-61-5348Phmmltc encounter procedureFrye [facility] Physician GroupUNIVERSITY [facility] Work Phone: Start: 05-23-2024 End: 79-97-5970Zdw Drop offJEPONCEIFER E LAZ [facility] Start: 05-23-2024 End: 46-37-9178jeuuzovumfQS- JOSELYN Clark PERRYFacility:EU BellevueStart: 05-23-2024 End: 16-45-7821Flnnwxk encounter procedureJENNIFER E LAZ [facility] start: 26-30-5223Huh-patient / Non-visitMendozabon [facility] Physician [facility] Work Phone: Start: 05-02-2024 End: 99-61-1514fibmkhvexuMnsifqluwTuscarawas Hospital Work Phone: Start: 05-02-2024 End: 11-90-9011Olfmrrc encounter procedureF[facility]e [facility] Physician [facility] Work Phone: Start: 04-04-2024 End: 83-49-2359Hjxiyiy encounter procedureHenok Dumont APRN-DEVELOPMENT TECHNOLOGIST Work Phone: [facility] CenterVideo PassportsLicking [facility] Hospital Rightside Operating Cotart: 04-04-2024 End: 33-91-7705Mkuqqehp preventive med est patient 40-64yrsValenazia Dumont APRN-DEVELOPMENT TECHNOLOGIST Work Phone: [facility] - Family MedicineComment on above:Annual physical exam (Primary Dx); Blood tests for routine general physical examinationStart: 04-04-2024 End: 19-82-5826Gnefvckb examinationHenok Dumont APRN-DEVELOPMENT TECHNOLOGIST Work Phone: [facility] CenterVideo PassportsNorth [facility] Work Phone: Start: 03-07-2024 End: 09-57-9083skkpcwjogzOummvqfntTuscarawas Hospital Work Phone: Start: 03-07-2024 End: 98-18-7331Lzppmlb encounter procedureF[facility] Physician [facility] Work Phone: Start: 01-11-2024 End: 97-93-0677lmhweqxfrtLmqxazwdbTuscarawas Hospital Work Phone: Start: 01-11-2024 End: 71-12-6929Ahwknie encounter procedureF[facility]e [facility] Physician [facility] Work Phone: Start: 11-29-2023 End: 80-83-8506Shmltb outpatient new 30 minutesHenok Dumont APRNLUDLOW HOSPITAL Work Phone: [facility] - Family MedicineComment on above:Postoperative hypothyroidism (Primary Dx); Mixed hyperlipidemia; Anxiety and depressionStart: 11-21-2023 End: 82-04-9215nkefkimdfkBukzhkeffTuscarawas Hospital Work Phone: Start: 11-21-2023 End: 32-45-4458Bkkfmpc encounter procedureF[facility]e [facility] Physician [facility] Work Phone: Start: 11-07-2023 End: 76-70-2022Wxf Drop offJOSELYN Clark LAZ [facility] Start: 11-07-2023 End: 62-76-1710bznkazkndcAG-C JENNIFER E PERRYFacility:FTMCStart: 11-07-2023 End: 08-97-8817Iefbrws encounter procedureJENNIFER E LAZ [facility] start: 16-12-1256ihzjttyaexJnivamf R WATERSFacility:EU [place]uskyStart: 10-10-2023 End: 39-10-0043vifefpyhlqUciicnyglTuscarawas Hospital Work Phone: Start: 10-10-2023 End: 19-76-9427Jxtuvoc encounter procedureFrye Regional [facility] Physician GroupUNIVERSITY HOSPITAL Work Phone: Start: 09-26-2023 End: 66-53-1353Cro Drop offMarshall ESPARZA [facility] Start: 09-26-2023 End: 59-83-9997pjiysfsvffMnkunpl R WATERSFacility:FTMCStart: 09-26-2023 End: 13-45-2943Bmvgety encounter procedureMarshall ESPARZA [facility] start: 08-22-2023 End: 79-51-9777enhnivsjazWxolloe R WATERSFacility:FTMCStart: 08-21-2023 End: 57-93-7947twlmorrhclQnhnmbr R WATERSFacility:EU BellevueStart: 08-21-2023 End: 72-95-9276Dsuakpm encounter procedureMarshall ESPARZA [facility] start: 66-50-8166ysqifedxgsTJSidney HAYES Facility:EU BellevueStart: 08-08-2023 End: 48-34-3611opgdzsdgvbRP Musa Evangelista Work Phone: [facility] Work Phone: Start: 08-08-2023 End: 90-16-7321Mnycydh encounter procedureDO Musa Evangelista Work Phone: [facility] Physician [facility] Work Phone: Start: 07-21-2023 End: 03-00-2391wzhbcwyqynMhii Fitt Other [place] [facility] Other Start: 53-51-5142Oebznglfx encounterDawn IssaSalem Hospital Coordinated Care ClinicStart: 07-17-2023 End: 76-70-7376jdxddsnfpcSzwm Fitt Other [employer] [facility] Other Start: 76-91-9894Cawuxqksf encounterDawn [facility] ClinicStart: 07-07-2023 End: 13-14-3360Sqhhntnix to same day surgery centerDO Musa Evangelista Work Phone: [facility] HospitalStart: 07-07-2023 End: 89-12-7511syhlryfszaGY Steven Jackson Work Phone: [facility] Work Phone: Start: 06-22-2023 End: 17-24-9343Wufhqqm encounter procedureDO Musa Evangelista Work Phone: [facility] Jqs-Mux-Valkbukp Testing Work Phone: Start: 06-22-2023 End: 13-12-8702vzkfsdxabmQV Steven Jackson Work Phone: [facility] Work Phone: Start: 06-20-2023 End: 02-43-0501orbhurooioBevyity R WATERSFacility:EU [place]kyStart: 06-20-2023 End: 06-61-1604Qceancm encounter procedureMarshall ESPARZA [facility] [place] Start: 06-13-2023(FCCCWMNF/U) Weight Management f/u Viktoria Dodson [facility] Care ClinicStart: 06-13-2023 End: 30-57-0027rkckucnbtnFgkjhen C TapactiveCedar City HospitalFrienditePlus Other Start: 66-38-4831Cmcmgfrifm RecurringDO Musa Evangelista Work Phone: [facility] Work Phone: Start: 06-13-2023 End: 81-04-9447Kjyudin encounter procedureDO Musa Evangelista Work Phone: [facility] Work Phone: Start: 04-17-2023([facility]WMNF/U) Weight Management f/u Viktoria ScallyFirelands Coordinated Care ClinicStart: 04-17-2023 End: 54-44-6295ylledjjlxmZijgugt Grecialy Other [employer] Other Start: 04-17-2023 End: 82-67-8585Ewcgbul encounter procedureDO Musa Evangelista Work Phone: [facility] Work Phone: Start: 02-15-2023([facility]WM[facility]/U) Weight Management f/u Viktoria ScallyFirelands Coordinated Care ClinicStart: 02-15-2023 End: 41-82-8064rvuzougwbeIiyuetb Grecialy Other [employer] Other Start: 02-13-2023([facility] WMNI) WMN Initial ProviderDawn Trupti Coordinated Care ClinicStart: 02-13-2023 End: 49-32-3941ncbokhkvbeLiqv Deion Other [employer] Other Start: 01-25-2023 End: 06-24-6411ijywfrgkgcZhtcfah Grecialy Other [employer] Other Start: 70-94-7195Fqeknmgeh encounterDeOur Lady of Fat[facility] Hospital Coordinated Care ClinicStart: 12-27-2022([facility]WMNF/U) Weight Management f/uDeborah ScallyFirelands Coordinated Care ClinicStart: 12-27-2022 End: 17-69-7255zqjdlmxiqwGtyirtj Scally Other [facility] Other Start: 12-15-2022 End: 32-81-3201jrszrcthnnUcdjepz Scally Other [facility] Other Start: 02-94-7727Vimxrajjg encounterAdammulticare [facility] GreciaBeaumont Hospital Coordinated Care ClinicStart: 11-11-2022 End: 57-43-3153ahoxsnmhftSWOFYWP SCALLYFacility:X2Zotxx: 07-29-2022 End: 81-84-8925Bhtgnkaxe to same day surgery [place]DO Musa Evangelista Work Phone: [facility] HospitalStart: 07-29-2022 End: 19-61-7993zrymluffcbXD Steven Jackson Work Phone: [facility] Work Phone: Start: 04-27-2022 End: 07-31-1125Vmj Drop offJEBERNARDA ALVAREZRY [facility] Start: 04-27-2022 End: 99-45-6618Htqstem encounter procedureJENNIFER E LAZ [facility] [place] start: 04-16-2022 End: 65-75-7291mxidoakljuUV STEVEN JACKSONFacility:B2Xawlu: 88-05-6281osylgkhjyn DR MUSA EVANGELISTAFacility:H1 Procedures DateProcedureProcedure DetailPerforming ClinicianStart: 92-74-1442Gxiypifgtj glycosylated k8uHfzh Joy Lombardi DIE PRESSER-DEVELOPMENT TECHNOLOGIST Work Phone: Start: 53-68-6915Wbpni depression screening assessment Logan Lombardi DIE PRESSER-DEVELOPMENT TECHNOLOGIST Work Phone: Start: 15-97-8841Jybimfbwudquer aspir&/inj major jt/bursa w/o Teena Day DO Work Phone: Start: 61-98-9812Rqgrxdufjjzzcy aspir&/inj major jt/bursa w/o Teena Day DO Work Phone: Start: 14-20-7704Iseddoonxr examination knee 3 views Aung Day DO Work Phone: Start: 47-38-2679Gbkbv depression screening assessment Franco Whitmore DO Work Phone: Start: 25-09-8990Pzfxhstl totalStart: 51-09-1419Wrrql depression screening assessmentNormaeduardo QuezadaDumont DIE PRESSERTWINLINXDEVELOPMENT TECHNOLOGIST Work Phone: Start: 40-26-5639Tvstn depression screening assessment Henok Dumont DIE PRESSERTWINLINXDEVELOPMENT TECHNOLOGIST Work Phone: Start: 18-15-8831Tntyw hysterectomy via vaginal approachDO Musa Evangelista Work Phone: Start: 57-99-6500SkbpnmbhirnaDVCSEEMH LAZ Start: 63-88-7731Rlkyyjyo screenDeborah ScallyComment on above:Order Comment: Date of Surgery: [id number] Comment: PERFORMED BY: [facility] [id number] [place] [address] PATHOLOGIST BIOFUELS ENGINEERING MANAGER GRACY BARRY M.D.Start: 93-67-6743Cpjpvcvngtifkhluq with dilation of urethral stricturePatrick ISAIAS Start: 87-53-8207ZyifpdbnzbbtKE Musa Evangelista Work Phone: Start: 74-20-7772EmrtpmbqacnUcydok Jones MD Work Phone: start: 99-95-2830KkpnywhesdFUYEVBAL LAZ Start: 73-19-4006Tzuvqwdwisilcsjym with dilation of urethral strictureJOSELYN HAYES BILATERAL MASTECTOMY WITH TISSUE MANAGER GLOBAL COMMUNICATIONS INSERTION JOSELYN HAYES bladder suspension 1JJANNETTE HAYES Comment on above:May 20 2011ESWL KIDNEY STONE X2 JOSELYN HAYES H/O: hysterectomyHx of hysterectomyTsering Velez MD Work Phone: lEFT KNEE RECONSTRUCTIVE SURGERYJOSELYN HAYES PARATHYROID GLAND EXCISIONJOSELYN HAYES Part of lobe of thyroid gland (body structure)JOSELYN HAYES Plan of Treatment DateCare ActivityDetailAuthorStart: 26-38-7731Fphdrruws for malignant neoplasm of colonNOWV HealthcareStart: 59-39-4283Huazt BMI ScreeningAdult BMI Screening [facility] SystemStart: 55-40-7252Sclofzvvfc ScreeningDepression Screening [facility] SystemStart: 85-85-3417Onzxqid ScreeningTobacco Screening [facility] SystemStart: 03-31-2026 End: 43-79-2916Fljiuwy encounter aewpascxw71/13/2026 3:00 PM EDT Office Visit [facility] [address] [place] [address] Logan Lombardi, DIE PRESSER-DEVELOPMENT TECHNOLOGIST [address] [place] [address] [facility] - Family MedicineStart: 40-70-3309Oopow BMI ScreeningAdult BMI ScreeningProMedica Health SystemStart: 60-30-2480Ydwxtdvpxe ScreeningDepression ScreeningProMedica Health SystemStart: 05-54-7811Ejdqqji ScreeningTobacco ScreeningProFisher-[facility] Centerca Health SystemStart: 08-19-2025 End: 20-80-6213Zrzdojw encounter procedureNOMS SWS OBStart: 04-08-2025 End: 58-10-1092Mplumkh encounter procedureProMedica Physicians Internal Medicine - Family MedicineStart: 67-85-9004Hsvwa BMI Follow Up PlanAdult BMI Follow Up PlanProAdena Health System SystemStart: 11-73-5391Onznt BMI ScreeningAdult BMI ScreeningProAdena Health System SystemStart: 91-51-0872Eybidgdzht ScreeningDepression ScreeningProAdena Health System SystemStart: 33-71-2612Rmdzqvx ScreeningTobacco ScreeningProAdena Health System SystemStart: 03-18-2025 End: 12-07-8809Mulycrc encounter mrujfoeyj69/30/2025 3:15 PM EDT [facility] [address] [place] [address] Aung Day, DO [address] [facility] [place] [address] ArrivedNO [facility] Comment on above:ArrivedStart: 30-28-9894XMLVL-19 Vaccine ( season) COVID-19 Vaccine ( season)[facility] SystemStart: 02-17-2025 Influenza vaccinationProMedica Memorial Hospital SystemStart: 01-16-2025 End: 92-82-7187Jjehprf encounter sphhovayn38/31/2025 3:15 PM EDT Office Visit [facility] [address] [place] [id number] Aung Day DO [address] [place] [address] [facility] NB ORTHOStart: 01-08-2025 End: 83-55-9874sjfqgdgppu59/23/2025 4:00 PM EDT Treatment [facility] [address] [place] [id number] Kelbley, Jennie, DATA VISUALIZATION DEVELOPER Acute pain of left knee (Primary Dx)[facility] CI PTComment on above:Acute pain of left knee (Primary Dx)Start: 01-07-2025 End: 85-53-2935fxjhjplmns47/22/2025 3:30 PM EDT Treatment [facility] [address] [place] [address] Jennie Santos, DATA VISUALIZATION DEVELOPER [facility] CI PTStart: 12-30-2024 End: 96-19-5748bftpamfdbiWZBY CI PTComment on above:ArrivedStart: 12-16-2024 End: 81-40-7894kbkczotmloCARD CI PTComment on above:ArrivedStart: 12-12-2024 End: 05-76-7057uvxxlogiepIZVT CI PTComment on above:ArrivedStart: 12-10-2024 End: 94-35-1226furvjfbwnb01/24/2025 3:30 PM EDT Treatment [facility] [address] [facility] [address] [place] [address] Jennie Santos, DATA VISUALIZATION DEVELOPER [facility] CI PTStart: 12-05-2024 End: 69-54-3201cqztwbpamaLRQA CI PTComment on above:Acute pain of left knee (Primary Dx)Start: 12-03-2024 End: 44-58-5147kpavzqpiky44/17/2025 3:30 PM EDT Treatment [facility] [address] [place] [address] Jennie Santos, DATA VISUALIZATION DEVELOPER [facility] CI PTStart: 11-28-2024 End: 62-14-6708gqhsoifkvm29/12/2025 4:00 PM EDT Evaluation [facility] [address] [facility] [address] [place] [address] Lucila Rausch, PT [address] [place] [address] ArrivedNOMS CI PTComment on above:ArrivedStart: 85-90-5987Mkdie BMI Follow Up PlanAdult BMI Follow Up PlanProMedica Memorial Hospital SystemStart: 11-28-2024 Adult BMI ScreeningAdult BMI ScreeningProAdena Health System SystemStart: 11-28-2024 Depression ScreeningDepression ScreeningProMedica Memorial Hospital SystemStart: 11-28-2024 Tobacco ScreeningTobacco ScreeningProToledo Hospitaltart: 04-04-2024 End: 74-54-6426Sfbtxie encounter afsdppkck21/17/2024 3:20 PM EDT Office Visit [facility] [address] [place] [address] Henok Dumont, DIE PRESSER-DEVELOPMENT TECHNOLOGIST [address] [place] [address] [facility] - Family MedicineStart: 37-27-0799Aenlzxndcnlnlr of varicella zoster vaccineZoster (Shingles) Vaccine (1 of 2)[facility] Hospitaltart: 39-79-0769CRPZU-19 Vaccine ()COVID-19 Vaccine ()[facility] SystemStart: 40-92-4044VGGDB-19 Vaccine ()COVID-19 Vaccine ()[facility] Start: 33-82-8049Ntkxlgwqd vaccinationProMedica Memorial Hospital SystemStart: 07-07-2023 Hospital admissionKindred Hospital Limatart: 66-18-1952SqapqrxhfSalem Regional Medical Center CenterStart: 64-30-3231XIIGX-19 Vaccine () COVID-19 Vaccine ()[facility] Hospitaltart: 07-29-2022 End: 74-50-1233LvzhmymxbKindred Hospital Limatart: 88-67-3462Izfwpsfga for malignant neoplasm of cervixPap SmearProMedica Memorial Hospital SystemStart: 1993 DTaP,Tdap and Td Vaccines (1 - Tdap)DTaP,Tdap and Td Vaccines (1 - Tdap) [facility] Hospitaltart: 33-85-1270Pqrkd BMI Follow Up PlanAdult BMI Follow Up PlanProMedica Memorial Hospital SystemStart: 19-00-9664Blfnuewfo for malignant neoplasm of colonWestern [facility] Mental Health Center End: 45-02-1881PMS panel - Blood by Automated countCBC without diff Lab Routine Blood tests for routine general physical examination 1 Occurrences starting 04/08/2025 until 04/08/2026[facility] NMT Medical SystemComment on above:1 Occurrences starting 04/08/2025 until 04/08/2026 End: 82-41-7305OVG W Auto Differential panel - BloodCBC auto differential Lab Routine Blood tests for routine general physical examination 1 Occurrences starting 04/04/2024 until 04/04/2025[facility] NMT Medical SystemComment on above:1 Occurrences starting 04/04/2024 until 04/04/2025 End: 15-04-5847Fstdquvduljcd metabolic 2000 panel - Serum or PlasmaComprehensive metabolic panel Lab Routine Blood tests for routine general physical examination 1 Occurrences starting 04/04/2024 until 04/04/2025[facility] Work Phone: Comment on above:1 Occurrences starting 04/04/2024 until 04/04/2025 End: 57-17-5343Xhjbcreldwnkl metabolic 2000 panel - Serum or PlasmaComprehensive metabolic panel Lab Routine Blood tests for routine general physical examination 1 Occurrences starting 04/08/2025 until 04/08/2026[facility] NMT Medical [facility] HospitalComment on above:1 Occurrences starting 04/08/2025 until 04/08/2026 Comprehensive metabolic 2000 panel - [facility] or PlasmaSum[facility] End: 97-77-9981Tdevzabhua A1c/Hemoglobin.total in BloodHemoglobin A1c Lab Routine Blood tests for routine general physical examination 1 Occurrences starting 04/04/2024 until 04/04/2025[facility] HospitalComment on above:1 Occurrences starting 04/04/2024 until 04/04/2025IGP, APT HPV,RFX 16/18,45IGP, APT HPV,RFX 16/18,45 Lab Routine Encounter for gynecological examination without abnormal finding Encounter for screening for cervical cancer Ordered: 08/12/2024[facility] [employer] Work Phone: comment on above:Ordered: 08/12/2024 End: 98-18-0951Scguc 1996 panel - Serum or PlasmaLipid profile Lab Routine Blood tests for routine general physical examination 1 Occurrences starting 04/04/2024 until 04/04/2025[facility] Health SystemComment on above:1 Occurrences starting 04/04/2024 until 04/04/2025 End: 65-29-9205Coudv 1996 panel - Serum or PlasmaLipid profile Lab Routine Blood tests for routine general physical examination 1 Occurrences starting 04/08/2025 until 04/08/2026[facility] Health SystemComment on above:1 Occurrences starting 04/08/2025 until 04/08/2026Patient [facility] Work Phone: End: 64-91-1026Owrcbhv profile includes TSH XB5Pffxshk profile includes TSH FT4 Lab Routine Blood tests for routine general physical examination 1Occurrences starting 04/08/2025 until 04/08/2026[facility] Work Phone: Comment on above:1 Occurrences starting 04/08/2025 until 04/08/2026 End: 73-64-3070Bskwaxgbrii [Units/volume] in Serum or PlasmaTSH Lab Routine Blood tests for routine general physical examination 1 Occurrences starting 04/04/2024 until 04/04/2025[facility] Health SystemComment on above:1 Occurrences starting 04/04/2024 until 04/04/2025[facility] Immunizations Immunization DateImmunizationNotesCare EjaoymhsCrvwojgv95-19-6148akkgtwfjx virus vaccine, unspecified formulationTsering Velez MD Work Phone: [facility] CenterTxxsfkrvux45-18-1745JBJTS-74 mRNA, Comirnaty (Pfizer)DO Musa Evangelista Work Phone: [facility]04-22-2021SARS-CoV-2 (COVID-19) mRNA BNT-162b2 Kemal HAYES [facility]04-05-2021COVID-19 mRNA, Comirnaty (Pfizer)DO Musa Evangelista Work Phone: [facility]04-01-2021SARS-CoV-2 (COVID-19) mRNA BNT-162b2 vaxJENNIFER LAZ [facility]09-16-2020influenza virus vaccine, unspecified formulationJENNIFER LAZ [facility]09-16-2020Influenza, Injectable, quadrivalent (PF)Logan Deandreotzer DIE PRESSER-DEVELOPMENT TECHNOLOGIST Work Phone: [facility] CenterBottleXxntuz13-91-5440sifbuhpbg, injectable, quadrivalent, preservative freeValerie Dumont DIE PRESSER-DEVELOPMENT TECHNOLOGIST Work Phone: [facility] CenterBottleVdjmpa14-70-5875ckyiconcr virus vaccine, unspecified formulationJENNIFER LAZ [facility]10-01-2019influenza virus vaccine, live, attenuated, for intranasal use JOSELYN HAYES [facility] [place] 009980-01-2019influenza virus vaccine, unspecified formulationJENNIFER LAZ [facility] CampusComment on above:Result Comment: 2022-04-27: PATIENT RECIEVED AT WORK 96-63-9540Nxypslfdz, Injectable, QuadrivalentElvinle Deandreotzer DIE PRESSER-DEVELOPMENT TECHNOLOGIST Work Phone: [facility] CenterBottleBqrfmj12-39-7611lybzmuarh, injectable, quadrivalent, contains preservativeValerie Dumont DIE PRESSER-DEVELOPMENT TECHNOLOGIST Work Phone: [facility] CenterBottle Payers DatePayer CategoryPayerPolicy [id number] Care Other (unspecified) [employer] [id number] Health [id number] [id number] 2.16.840.1.187261.3.57[id number] 2.16.840.1.310450.3.57[id number] 2.16.840.1.919612.3.57[id number] 2.16.840.1.024123.3.57[id number] 2.16.840.1.116416.3.57[id number] 2.16.840.1.400989.3.579.2.[id number] 2.16.840.1.712751.3.579.2.[id number] 2.16.840.1.937657.3.579.2.1[id number] 2.16.840.1.026798.3.579.2.1[id number] 2.16.840.1.903500.3.579.2.[id number] 2.16840.1.417600.3.579.2.02276-66-5843Hupsmgt23859832 2.16.840.1.720886.3.579.2.27893-91-3129Tulogik56213694 2.16.840.1.653167.3.579.2.[id number] 2.16.840.1.812120.3.579.2.90443-79-3495Xaavevj71604194 2.16.840.1.343231.3.579.2.16368-92-9556Qopmnvv09652345 2.840.1.946553.3.579.2.96418-07-5772Loovldw00499047 2.840.1.041929.3.579.2.94598-38-7432Mvezofd46146117 2.840.1.870740.3.579.2.30794-28-4970Wijmjhx03210373 2.840.1.086809.3.579.2.774435-65-8881Psilrfz96451300 2.840.1.810032.3.579.2.791840-76-1550Ddnsfaq12619196 2.840.1.598847.3.579.2.163609-01-8974Qojqvqg35979354 2.840.1.606150.3.579.2.551720-67-3991Tshlimc65564682 2.840.1.722254.3.579.2.844808-64-2613Ytaxknu11994865 2.840.1.892657.3.579.2.162835-20-7954Hletwfg23404360 2.16840.1.715528.3.579.2.251997-14-9592Ujwqkor76804134 2..840.1.958833.3.579.2.505549-49-7274Yhyqvgx53018833 2..840.1.698148.3.579.2.562863-05-1651Lqfqnek88177898 2..840.1.766781.3.579.2.717451-79-0124Dnyfkbq4204721 2..840.1.500554.3.579.2.015905-90-5237Krnz-xsj 6533gvkb-xf04-9e6wcw83-5q4f-h571-9w9xje82352b42-39-8655Kabxcty265221241 n75r111v-3825-4091-8o4f-307h6p19[id number] 6e088zy4-dqbs-356e-6627-6b81918kuk3oUmapxpr79123710 2..840.1.674587.3.579.2.900Gltmqlu16068671 2.840.1.410212.3.579.2.531 Kbsbnyw16132754 2.840.1.090714.3.579.2.796Pdrznix33176555 2.0.1.192914.3.579.2.462 Social History DateTypeDetailFacilityTobacco smoking status NHISUnknown if ever smokedSalem Regional Medical Center CtrStart: 08-60-5845Nhh Assigned At [facility]tart: 04-24-2020 End: 40-74-4440Upvplbs smoking statusNever smoked tobacco (finding)[facility] HospitalTobacco smoking statusNeverBarnesville Hospital Start: 11-29-2023 End: 81-64-4785Oqr Assigned At [facility]tart: 06-22-2023 End: 64-50-1168Cflwatr smoking status NHISEx-smoker (finding)[facility]: 11-17-2023 End: 45-44-0362MaqSzgkoz (finding)[facility]: 11-29-2023 End: 01-37-6474Nypakhw use and exposureSmokeless tobacco non-userProMedica Memorial Hospital SystemStart: 11-29-2023 End: 63-94-6709Mnwfpuuut beverage intakeEx-drinker (finding)[facility] SystemStart: 11-29-2023 End: 47-52-8005Jeqtmcm of Social functionProMedica Memorial Hospital SystemStart: 13-59-4912Tyd assigned at birthNot on fileProMedica Memorial Hospital SystemStart: 19-30-9753Sdobhpm CommentrarePFayette County Memorial Hospital SystemStart: 08-12-2024 End: 96-03-6536Wekucrovu beverage intakeCurrent drinker of alcohol (finding)[facility] HealthcareHow often to you have a drink containing alcohol?Monthly or lessNOMS HealthcareHow many standard drinks containing alcohol do you have on a typical day?1 or 2N[facility]S HealthcareHow often do you have 6 or more drinks on 1 occasion? Less than monthlyNOMS HealthcareStart: 24-61-4836Rplmdpm CommentCaffeine Intake: 1-2 cups of coffee per dayNOWV HealthcareStart: 10-89-3882Eecinr identity Identifies as female gender (finding)[facility] HealthcareStart: 22-93-9361Vfvmqu orientationHeterosexual (finding)[facility] HealthcareSexual OrientationExec[facility] History of tobacco useCurrent smokerN[facility]S Healthcare History of tobacco useCigarette SmokerNOWV Healthcare Medical Equipment Procedure CodeEquipment CodeEquipment Original TextEquipment IdentifierDatesPen [place] 32G X 4 MMStart: 02-15-2023 Goals DatePatient GoalDesired Activity/State Functional Status HlwfTcltlaiksbYbgdelQkvebvcz30-93-6630Nsqaq score [AUDIT-C]2 04/08/2025 3:44 PM EDT Manjula Abarca CMAAultman Orrville HospitalIwiduk68-10-1960Tqjtkagvmb StatusN/A [facility]ue05-21-2024Functional StatusN/AExec[facility] of [facility] Centerue01-19-2024 Functional statusPatient at BaselineU[facility] Work Phone: [phone] 956-85120238528-40-9947Zqkghclasc StatusN/AExec[facility] Mwapafvv57-31-4315Nsqoqizdkr StatusN/AExec[facility] Mental Status LmisFjqsvalfmpLcshagLlyescfg82-78-7906Phlotvoxq functionCognitive Status Patient at [facility] Work Phone: Clinical Notes 04-27-2022 to 04-08-2025 Note Date & KgpuXtrqKxflorqi39-76-4589 History of Present illness Narrative* Logan Lombardi, DIE PRESSER-DEVELOPMENT TECHNOLOGIST - 04/08/2025 3:20 PM EDT IM PROGRESS [...] Past Medical History: Diagnosis Date Breast cancer ([facility]) double mastectomy Chronic UTI Disease of thyroid [...] L (13-17 inches)) Pulse 83 Temp 36.6 C (97.8 F) (Oral) Resp 18 Ht 172.7 cm (5' 7.99 ) Wt 79.7 kg (175 lb 12.8 oz) SpO2 95% BMI 26.74 kg/m Physical Exam Vitals and nursing note reviewed. [...] CAPSULE BY MOUTH ON MON, WED, AND FRI, Disp: , Rfl: KLOR-CON/EF 25 [...] (around 04/08/2026) for Annual physical. Logan AGUILAR [facility] Office: [phone] This note is dictated with the use of M*Modal. Please note that this dictation was completed with computer voice recognition software. Quite often unanticipated grammatical, syntax, homophones, and other interpretive errors are inadvertently transcribed by the computer software. Please disregard these errors. Please excuse any errors that have escaped final proofreading. JEFF Orr 04/08/25 1622 documented in this [facility]10-10-2025 Note From: Jennifer Nick MA ([facility] ([facility])) To: Musa Evangelista DO; Sent: 03/28/2025 09:18:47 EDT Subject: FW: Medication Management Due Date/Time: 2025 09:01:00 EDT Caller Name: NICOLETTE EVANGELISTA; Caller Number: , M last visit; 11-16-22 next visit: none Patient matched by Jennifer Nick MA on 03/28/2025 09:17:52 EDT From: [facility] To: Celia Eason TEJAL Sent: March 28, 2025 8:01:18 AM CDT Subject: Medication Management Due: 2025 12:21:25 AM CDT On Hold Pending Signature Dispensed Drug: atorvastatin (atorvastatin 10 mg oral tablet), TAKE 1 TABLET BY MOUTH DAILY Quantity: 90 tab(s) Days Supply: 90 Refills: 0 Substitutions Allowed Notes from Pharmacy: From: Musa Evangelista DO To: [facility] Sent: 03/28/2025 09:25:40 EDT Subject: FW: Medication Management Submitted: Complete:atorvastatin (atorvastatin 10 mg oral tablet) Signed by Musa Evangelista DO 03/28/2025 09:25:00 EDT Approved with modifications: atorvastatin (ATORVASTATIN 10MG TABLETS) TAKE 1 TABLET BY MOUTH DAILY Qty: 90 tab(s) Days Supply: 90 Refills: 3 Substitutions Allowed Route To Pharmacy - [facility] Signed by Musa Evangelista DO [facility]09-30-2025 History of Present illness Narrative* LYNETTE Martinez - 03/18/2025 3:15 PM EDTAssociated Order(s): L Inj/Asp: L knee Post-Procedure Diagnose(s): Left knee pain, unspecified chronicity L Inj/Asp: L knee on 03/18/2025 4:03 PM Indications: pain Details: 25 G needle, lateral approach Medications: 1.5 mL betamethasone acetate-betamethasone sodium phosphate 6 (3-3) MG/ML Consent was given by the patient. * Aung Day DO - 03/18/2025 3:15 PM EDT Images from the original note were not included. @ENCDATE@ Nicolette Evangelista is a 49 y.o. female who presents for Pain of the Left Knee HPI: History of Present Illness The patient is a 49-year-old female here today to follow up on her left knee, which was aspirated and injected on 01/16/2025. She reports that her left knee has swollen again following a fall she experienced approximately a month ago. The swelling was significant but has since slightly subsided. Prior to this incident, she had been feeling well. SUBJECTIVE: MEDICATIONS: Current Outpatient Medications Medication Instructions atorvastatin (LIPITOR) 10 mg, Daily cephalexin (Keflex) 250 MG capsule ciprofloxacin (Cipro) 500 MG tablet Klor-Con/EF 25 MEQ effervescent tablet 25 mEq, 2 times daily levothyroxine (SYNTHROID, LEVOXYL) 50 mcg, Every morning meloxicam (Mobic) 15 MG tablet TAKE 1 TABLET (15 MG TOTAL) BY MOUTH IN THE MORNING metFORMIN XR (Glucophage-XR) 500 MG 24 hr tablet oxybutynin XL (DITROPAN-XL) 10 mg, Daily phentermine (ADIPEX-P) 37.5 mg, Daily sertraline (ZOLOFT) 100 mg, Daily ALLERGIES: Allergies Allergen Reactions Azithromycin Unknown Sulfa Antibiotics Sulfanilamide Unknown SURGICAL HISTORY: Past Surgical History: Procedure Laterality Date BREAST RECONSTRUCTION CYSTOSCOPY W/ STONE MANIPULATION Stone removal - Nephrolithiasis DILATION AND CURETTAGE OF UTERUS 03/11/2023 Hysteroscopy/ D and C - Menorrhagia DILATION AND CURETTAGE OF UTERUS 07/29/2022 KNEE SURGERY Left LAPAROSCOPIC HYSTERECTOMY 07/07/2023 TLH/BSO MASTECTOMY Bilateral Breast Cancer PARATHYROIDECTOMY 2011 Hypercalcemia THYROIDECTOMY 02/10/2020 Total Left thyroidectomy; Partial Right lobectomy FAMILY HISTORY: Family History Problem Relation Name Age of Onset Prostate cancer Father Prostate cancer Father's Brother SOCIAL HISTORY: Social History Tobacco Use Smoking status: Former Types: Cigarettes Smokeless tobacco: Never Vaping Use Vaping status: Never Used Substance Use Topics Alcohol use: Yes Comment: Caffeine Intake: 1-2 cups of coffee per day Drug use: Never Depression: Not at risk (11/20/2024) Received from [facility] PHQ-2 Total Score: 0 REVIEW OF SYMPTOMS: Review of Systems The review of systems, history and current medications list are all reviewed today. OBJECTIVE: Visit Vitals Ht 5' 7 Wt 176 lb LMP (LMP Unknown) BMI 27.57 kg/m OB Status Hysterectomy Smoking Status Former BSA 1.94 m Physical Exam Alert and oriented, no acute distress. Mood and affect are appropriate. Ambulating independently. Gait is nonantalgic. Wearing Freitas shoes. Right knee: Full extension, 2+ lateral translation of the kneecap, no effusion, flexion to 135 degrees Left knee: Flexion to 129 degrees, well-healed incision over the medial aspect, full extension, mild effusion, tenderness in the lateral joint line and lateral patellofemoral joint, palpable loose body superolaterally, negative Guillermina's test, no valgus or varus instability, negative anterior and posterior drawer tests Ortho Exam Results ASSESSMENT AND PLAN: I reviewed the history, physical exam, diagnostic studies, and diagnosis with the patient. Assessment & Plan 1. Advanced degenerative and posttraumatic osteoarthrosis of the left knee: The skin over the superior lateral aspect of the left knee(s) was prepared with alcohol and Betadine. The skin and subcutaneous tissues were anesthetized with 1% plain Lidocaine with a 25-gauge 1-1/2inch needle. An 18-gauge needle was then inserted into the suprapatellar pouch and 10 mL of clear, yellow, synovial fluid was aspirated. A mixture of 1.5 mL of betamethasone and 1.5 mL of 1% plain lidocaine was then injected into the knee through the same needle. The patient tolerated the procedurewell. A Band-Aid was applied. The patient was instructed to ice the knee and to watch for any signsof infection including redness, increased pain in the knee, drainage from the injection site, fever, chills, etc. The patient was instructed to call the office if he/she experiences any adverse reaction from the injection. The patient would like to leave follow up to his/her own discretion. A total of 30 to 39 minutes was spent on this patient encounter which included chart review, check in, nurse triage, history taking, physical examination, diagnostic study review, patient counseling and discussion, entering information into the patient's medical record, and coordinating patient care. Diagnoses and all orders for this visit: Left knee pain, unspecified chronicity - L Inj/Asp: L knee Aung Day D.O. Attestation This note was created using voice recognition through [employer]. documented in this encounterWestern Missouri Mental Health CenterDllatxazol47-11-0732 Evaluation note* Diagnosis Onset Date Resolution Status Admit Date BMI 29.0-29.9,adult acuteAugust 2024 3:01pmFamily history of diabetes mellitus (DM)acuteAugust 2024 3:01pmHyperlipemiaacuteAugust 2024 3:01pmHypothyroidismacute January 30, 2025 3:01pmObesityacuteAugust 2024 3:01pmPrediabetesacute January 30, 2025 3:01pmVitamin B 12 deficiencyacuteAugust 2024 3:01pm Vitamin D deficiencyacuteAugust 2024 3:01pmBMI 29.0-29.9,adultacuteOctober 2024 3:18pmFamily history of diabetes mellitus (DM)acuteOctober 2024 3:18pmHyperlipemiaacuteOctober 2024 3:18pmHypothyroidismacuteOctober 2024 3:18pmObesityacuteOctober 2024 3:18pmPrediabetesacuteOctober 2024 3:18pmVitamin B 12 deficiencyacuteOctober 2024 3:18pmVitamin D deficiencyacuteOctober 2024 3:18pm [facility] Work Phone: [phone] 223-102607-31-2025 History of Present illness Narrative* LYNETTE Martinez - 01/16/2025 3:15 PM EDTAssociated Order(s): L Inj/Asp: L knee Post-Procedure Diagnose(s): Left knee pain, unspecified chronicity L Inj/Asp: L knee on 01/16/2025 3:53 PM Indications: pain Details: 25 G needle, lateral approach Medications: 1.5 mL betamethasone acetate-betamethasone sodium phosphate 6 (3-3) MG/ML Consent was given by the patient. * Aung Day DO - 01/16/2025 3:15 PM EDT Images from the original note were not included. @[email or web address]@ Nicolette Evangelista is a 49 y.o. female who presents for Pain of the Left Knee HPI: History of Present Illness The patient is a 49-year-old female who presents as a new patient today for left knee pain. She has been actively engaged in a fitness regimen, which includes gym workouts. A few months ago, she experienced significant tightness and swelling in her left knee, which she attributed to over-stretching. Despite the swelling, she continued her exercises. Her primary care physician suspected a torn meniscus and referred her to physical therapy. Although the therapy reduced the swelling, it did not completely resolve it. She reports persistent lateral pain in her left knee. She has been managing the pain with meloxicam. She uses a brace for support during exercise and has been running on [employer]. She underwent surgery on the left knee in 1995 for correction of recurrent patellar dislocation at [facility] in [place] by Dr. Félix Busby. Since then, she has not experienced any issues until recently. She also reports previous dislocation of her right kneecap, but this has not occurred inrecent years. She does not experience any locking of her knee. She reports no shoulder instability. 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 [employer] SUBJECTIVE: MEDICATIONS: Current Outpatient Medications Medication Instructions atorvastatin (LIPITOR) 10 mg, Daily cephalexin (Keflex) 250 MG capsule ciprofloxacin (Cipro) 500 MG tablet Klor-Con/EF 25 MEQ effervescent tablet 25 mEq, 2 times daily levothyroxine (SYNTHROID, LEVOXYL) 50 mcg, Every morning meloxicam (Mobic) 15 MG tablet TAKE 1 TABLET (15 MG TOTAL) BY MOUTH IN THE MORNING metFORMIN XR (Glucophage-XR) 500 MG 24 hr tablet oxybutynin XL (DITROPAN-XL) 10 mg, Daily phentermine (ADIPEX-P) 37.5 mg, Daily sertraline (ZOLOFT) 100 mg, Daily ALLERGIES: Allergies Allergen Reactions Azithromycin Unknown Sulfa Antibiotics Sulfanilamide Unknown SURGICAL HISTORY: Past Surgical History: Procedure Laterality Date BREAST RECONSTRUCTION CYSTOSCOPY W/ STONE MANIPULATION Stone removal - Nephrolithiasis DILATION AND CURETTAGE OF UTERUS 03/11/2023 Hysteroscopy/ D and C - Menorrhagia DILATION AND CURETTAGE OF UTERUS 07/29/2022 KNEE SURGERY Left LAPAROSCOPIC HYSTERECTOMY 07/07/2023 TLH/BSO MASTECTOMY Bilateral Breast Cancer PARATHYROIDECTOMY 2011 Hypercalcemia THYROIDECTOMY 02/10/2020 Total Left thyroidectomy; Partial Right lobectomy FAMILY HISTORY: Family History Problem Relation Name Age of Onset Prostate cancer Father Prostate cancer Father's Brother SOCIAL HISTORY: Social History Tobacco Use Smoking status: Former Types: Cigarettes Smokeless tobacco: Never Vaping Use Vaping status: Never Used Substance Use Topics Alcohol use: Yes Comment: Caffeine Intake: 1-2 cups of coffee per day Drug use: Never Depression: Not at risk (11/20/2024) Received from [facility] PHQ-2 Total Score: 0 REVIEW OF SYMPTOMS: Review of Systems The review of systems, history and current medications list are all reviewed today. OBJECTIVE: Visit Vitals Ht 5' 7 Wt 176 lb LMP (LMP Unknown) BMI 27.57 kg/m OB Status Hysterectomy Smoking Status Former BSA 1.94 m Physical Exam Alert and oriented, no acute distress. Mood and affect are appropriate. Ambulating independently. Gait is nonantalgic. Wearing [employer] shoes. Right knee: Full extension, 2+ lateral translation of the kneecap, no effusion, flexion to 135 degrees Left knee: Flexion to 129 degrees, well-healed incision over the medial aspect, full extension, mild effusion, tenderness in the lateral joint line and lateral patellofemoral joint, palpable loose body superolaterally, negative Ugillermina's test, no valgus or varus instability, negative anterior and posterior drawer tests Ortho Exam Results Imaging Three views, bilateral PA weight-bearing, sunrise, lateral of the left knee(s) taken today and saved to the permanent medical record are reviewed. Near complete loss lateral joint space left knee with valgus posture. Severe end stage arthritis at left PF joint with loss of joint space and marginal o steophytes. 2 metallic screws intact at proximal tibia from previous TTO. Bipartite patella right knee. ASSESSMENT AND PLAN: I reviewed the history, physical exam, diagnostic studies, and diagnosis with the patient. Assessment & Plan 1. Advanced degenerative and posttraumatic osteoarthrosis of the left knee: I discussed the natural history of degenerative osteoarthrosis and used the knee model as a visual aid during the discussion. I explained the importance of maintaining a healthy weight as well as thebenefits of maximizing the strength, stability, and range of motion of the affected joint. Low impact exercise such as biking, swimming, and elliptical training were suggested. Meloxicam should be continued as needed. Use a brace as needed during exercise for additional support. The knee was aspirated, and 25 mL of fluid was removed. A cortisone injection was administered to provide relief. An Chepe wrap was applied for compression, which can be removed upon reaching home. Apply ice to the area to prevent recurrence of swelling. If symptoms worsen or do not improve, contact the office for a sooner appointment. The skin over the superior lateral aspect of the left knee(s) was prepared with alcohol and Betadine. The skin and subcutaneous tissues were anesthetized with 1% plain Lidocaine with a 25-gauge 1-1/2inch needle. An 18-gauge needle was then inserted into the suprapatellar pouch and 25 mL of clear, yellow, synovial fluid was aspirated. A mixture of 1.5 mL of betamethasone and 1.5 mL of 1% plain lidocaine was then injected into the knee through the same needle. The patient tolerated the injections well. A Band-Aid was applied. Follow-up: The patient will follow up in 2 months. A total of 45-59 minutes was spent on this patient encounter which included chart review, check in,nurse triage, history taking, physical examination, diagnostic study review, patient counseling anddiscussion, entering information into the patient's medical record, and coordinating patient care. Diagnoses and all orders for this visit: Left knee pain, unspecified chronicity - XR knee 3 views left - L Inj/Asp: L knee Aung Day D.O. Attestation This note was created using voice recognition through [employer]. documented in this encounterWestern Missouri Mental Health [id number] Hospital Discharge instructions Patient Education 01/14/2025 14:49:16 Urinary Tract Infection, Adult Urinary Tract Infection, [...] Treatment for this condition includes: Antibiotic medicine. Yihj-ugd-fbyzdwg medicines to treat discomfort. Drinking enough water [...] Follow these instructions at home: Medicines Take ulsv-gvo-otmnuaq and prescription medicines only as told by [...] with your health care provider. Document Revised: 01/10/2021 Document Reviewed: 01/15/2021 Elsevier Patient Education 2023 [employer] App. Follow Up Care 11/29/2024 15:39:47 With:ISAIAS SMITH, Marshall Conti, URL Address: [facility] [address] , [place] [address]- When: Unknown [facility] 07-29-2025 NotePatient Education Obstetrics and Gynecology Urinary Tract Infection, [...] more likely to develop this condition if: ??? You have a urinary catheter that stays in place. ??? You are not able to control when you urinate or have a bowel movement (incontinence). ??? You are female and you: ? Use a spermicide or diaphragm for control. ? Have low estrogen levels. ? Are . ??? You have certain genes that increase your risk. ??? You are sexually active. ??? You take antibiotic medicines. ??? You have a condition that causes your flow of urine to slow down, such as: ? An enlarged prostate, if you are male. ? Blockage in your urethra. ? A kidney stone. ? A nerve condition that affects your bladder control (neurogenic bladder). ? Not getting enough to drink, or not urinating often. ??? You have certain medical conditions, such as: ? Diabetes. ? A weak disease-fighting system (immunesystem). ? Sickle cell disease. ? Gout. ? Spinal cord injury. What are the signs or symptoms? Symptoms of this condition include: ??? Needing to urinate right away (urgency). ??? Frequent urination. This may include small amounts of urine each time you urinate. ??? Pain or burning with urination. ??? Blood in the urine. ??? Urine that smells bad or unusual. ??? Trouble urinating. ??? Cloudy urine. ??? Vaginal discharge, if you are female. ??? Pain in the abdomen or the lower back. You may also have: ??? Vomiting or a decreased appetite. ??? Confusion. ??? Irritability or tiredness. ??? A fever or chills. ??? Diarrhea. The first symptom in older adults may be confusion. In some cases, they may not have any symptoms until the infection has worsened. How is this diagnosed? This condition is diagnosed based on your medical history and a physical exam. You may also have other tests, including: ??? Urine tests. ??? Blood tests. ??? Tests for STIs (sexually transmitted infections). If you have had more than one UTI, a cystoscopy or imaging studies may be done to determine the cause of the infections. How is this treated? Treatment for this condition includes: ??? Antibiotic medicine. ??? Gulk-xyd-atlubyx medicines to treat discomfort. ??? Drinking enough water to stay hydrated. If [...] medicines. Follow these instructions at home: Medicines ??? Take mlbf-mil-ldrlrpq and prescription medicines only as told by your health care provider. ??? If you were prescribed an antibiotic medicine, take it as told by your health care provider. Donot stop using the antibiotic even if you start to feel better. General instructions ??? Make sure you: ? Empty your bladder often and completely. Do not hold urine for long periods of time. ? Empty your bladder after sex. ? Wipe from front to back after urinating or having a bowel movement if you are female. Use each tissue only one time when you wipe. ??? Drink enough fluid to keep your urine pale yellow. ??? Keep all follow-up visits. This is important. Contact a health care provider if: ??? Your symptoms do not get better after 1?2 days. ??? Your symptoms go away and then return. Get help right away if: ??? You have severe pain in your back or your lower abdomen. ??? You have a fever or chills. ??? You have nausea or vomiting. Summary ??? A urinary tract infection (UTI) is an infection of any part of the urinary tract, which includes the kidneys, ureters, bladder, and urethra. ??? Most urinary tract infections are caused by bacteria in your genital area. ??? Treatment for this condition often includes antibiotic medicines. ??? If you were prescribed an antibiotic medicine, take it as told by your health care provider. Donot stop using the antibiotic even if you start to feel better. ??? Keep all follow-up visits. This is important. This information is not intended to replace advice given to you by your health care provider. Make sure you di (more content not included)...[facility]07-14-2025 History of Present illness Narrative* Lucila Rausch, PT - 12/30/2024 4:00 PM EDT Images from the original note were not included. Physical Therapy Treatment Visit Patient Name: Nicolette Evangelista Today's Date: 12/30/2024 Encounter Diagnoses Name Primary? Acute pain of left knee Yes Visit number: 6 Timed Code Treatment: 38 minutes Total Treatment Time: 38 minutes Time In: 3:55 PM Time Out: 4:32 PM History: Pt. Presents to PT with c/c of left knee pain which started 6 weeks ago. Pt. Was working out at the gym and noticed her left knee started to swell up on her. Reports she walks a lot while atwork and her knee does not bother her much but did notice a click in her knee. Denies N/T. Work: [employer]. Precautions: Subjective reports L knee swelling increases towards the end of the day. Clicking in knee during descending stairs. Knee is less painful today. Pain: 0/10 Objective: PT Evaluation (11/28/24) Left knee AROM: 0-130 deg Left flexibility: mild flexiblity in hamstring and calf Strength: 4/5 quadriceps and hamstring Palpation: moderate + knee swelling (mostly lateral) Gait: normal Treatment: Manual Therapy: Passive ROM, Joint mobilization, Soft Tissue Mobilization, Myofascial Release, Muscle Energy Technique, Neural Mobilization, Myofascial Cupping, Dry Needling, IASTM, and Scar mobilization Therapeutic Exercise: (23 minutes supervised) Guided pt through ther and flex ex per exercise in grid to improve L quad LE functional Strength, Endurance, Flexibility, ROM, HEP, Neural Mobilization, Power, and Core Stability; Therapeutic Activity: (15 minutes supervised ) Exercises to improve dynamic activities, functional tasks, functional mobility to return to prior activity level Neuromuscular re-education: Balance Training, Muscle Facilitation, Dynamic Stability, Core Stabilization, and Blood Flow Restriction Training (BFRT) Modalities: (minutes ) Post session pt supine with IFC/ CP to L knee to decrease swelling and muscle soreness Assessment: Pt has participated in 6 PT session with start of POC on 11/28 for left knee pain. No change in L knee with increased swelling in the evening post work, and achy. Fair progress toward PT goals to improve strength but no change in her knee pain. Knee weakness and discomfort with stairs. Outcome Measure: in chart Short Term Goal: To be met in 2 weeks Goal 1: Pt to be instructed in home exercise program. Treatment Coordinator Goals: To be met in 10 weeks Goal 1: Pt to report independence and compliance with home program. Goal 2: Pt. Will report of 0/10 left knee pain while walking/standing for long periods of time. Goal 3: Pt. Will demonstrate normal LE muscle flexibility to help return to PLOF. Goal 4: Pt. Will demonstrate 5/5 left quadriceps to help improve strength to walk to return to PLOF. Goal 5: Pt. Will demonstrate no knee swelling to help return to PLOF. Pt will benefit from skilled PT for 1-3x/week from 11/28/24 to 02/06/25 to address the above impairments. I hereby deem this POC medically necessary. Please sign below. Date: documented in this encounterWestern Missouri Mental Health [id number] Evaluation note* Diagnosis Onset Date Resolution Status Admit Date BMI 29.0-29.9,adult acuteJune 2024 3:34pmFamily history of diabetes mellitus (DM)acuteJune 2024 3:34pmHyperlipemiaacuteJune 2024 3:34pmHypothyroidismacuteJune 2024 3:34pmObesityacuteJune 2024 3:34pmPrediabetesacuteJune 2024 3:34pmVitamin B 12 deficiencyacuteJune 2024 3:34pmVitamin D deficiencyacuteJune 2024 3:34pmBMI 29.0-29.9,adultacuteAugust 2024 3:01pmFamily history of diabetes mellitus (DM)acuteAugust 2024 3:01pm HyperlipemiaacuteAugust 2024 3:01pmHypothyroidismacuteAugust 2024 3:01pmObesityacuteAugust 2024 3:01pmPrediabetesacuteAugust 2024 3:01pmVitamin B 12 deficiencyacuteAugust 2024 3:01pmVitamin D deficiency acuteAugust 2024 3:01pm [facility] Work Phone: [phone]) 263-820106-12-2025 History of Present illness Narrative* Lucila Rausch, PT - 11/28/2024 4:00 PM EDT Images from the original note were not included. Physical Therapy Evaluation Visit Patient Name: Nicolette Evangelista Today's Date: 11/28/2024 Encounter Diagnoses Name Primary? Acute pain of left knee Yes Visit number: 1 Timed Code Treatment Minutes: 50 minutes Total Treatment Time: 50 minutes Time In: 1600 Time Out: 1650 History: Pt. Presents to PT with c/c of left knee pain which started 6 weeks ago. Pt. Was working out at the gym and noticed her left knee started to swell up on her. Reports she walks a lot while atwork and her knee does not bother her much but did notice a click in her knee. Denies N/T. Work: [employer]. Precautions: Subjective Pain: 0/10 today; worst 5/10 Objective: PT Evaluation (11/28/24) Left knee AROM: 0-130 deg Left flexibility: mild flexiblity in hamstring and calf Strength: 4/5 quadriceps and hamstring Palpation: moderate + knee swelling (mostly lateral) Gait: normal Treatment: PT evaluation (20 minutes) Education: HEP education with demonstration, Educated on Eval Findings and POC Manual Therapy: Passive ROM, Joint mobilization, Soft Tissue Mobilization, Myofascial Release, Muscle Energy Technique, Neural Mobilization, Myofascial Cupping, Dry Needling, IASTM, and Scar mobilization Therapeutic Exercise: (25 minutes) exercises in grid; Strength, Endurance, Flexibility, ROM, HEP, Neural Mobilization, Power, and Core Stability Therapeutic Activity: Exercises to improve dynamic activities, functional tasks, functional mobility to return to prior activity level Neuromuscular re-education: Balance Training, Muscle Facilitation, Dynamic Stability, Core Stabilization, and Blood Flow Restriction Training (BFRT) Modalities: Heat, Ice, Electrical Stimulation, Ultrasound, Cervical Mechanical Traction, Lumbar Mechanical Traction, Iontophoresis, and Fluidotherapy Assessment: Pt. Has participated in 1 PT session with start of POC on 11/28 for left knee pain. Pt. Will benefit from skilled PT services. Outcome Measure: in chart Short Term Goal: To be met in 2 weeks Goal 1: Pt to be instructed in home exercise program. Treatment Coordinator Goals: To be met in 10 weeks Goal 1: Pt to report independence and compliance with home program. Goal 2: Pt. Will report of 0/10 left knee pain while walking/standing for long periods of time. Goal 3: Pt. Will demonstrate normal LE muscle flexibility to help return to PLOF. Goal 4: Pt. Will demonstrate 5/5 left quadriceps to help improve strength to walk to return to PLOF. Goal 5: Pt. Will demonstrate no knee swelling to help return to PLOF. Pt will benefit from skilled PT for 1-3x/week from 11/28/24 to 02/06/25 to address the above impairments. I hereby deem this POC medically necessary. Please sign below. Date: documented in this encounterWestern Missouri Mental Health [id number] Hospital Discharge instructions Patient Education 11/25/2024 17:15:51 Urethral Dilation Urethral Dilation Urethral dilation is a procedure to stretch open (dilate) the urethra. The urethra is the tube thatdrains pee (urine) from the bladder out of the body. In females, the urethra opens above the vaginal opening. In males, the urethra opens at the tip of the penis. Urethral dilation is usually done to treat narrowing of the urethra (urethral stricture), which canmake it difficult to pee (urinate). Urethral strictures can be caused by scar tissue, infection, injury, or surgery. Urethral dilation widens the urethra so that you can pee normally. Urethral dilation is done through the opening of the urethra. There are no incisions made during the procedure. Tell a health care provider about: Any allergies you have. All medicines you are taking, including vitamins, herbs, eye drops, creams, and xnqt-akb-pcxyunz medicines. Any problems you or family members have had with anesthesia. Any bleeding problems you have. Any surgeries you have had. Any medical conditions you have. Whether you are or may be . What are the risks? Your health care provider will talk with you about risks. These may include: Bleeding. Infection. A return of urethral stricture, which requires repeating the dilation procedure or more surgery. Damage to the urethra, which may require reconstructive surgery. Allergic reactions to medicines. What happens before the procedure? Medicines Ask your provider about: Changing or stopping your regular medicines. These include any diabetes medicines or blood thinnersyou take. Taking medicines such as aspirin and ibuprofen. These medicines can thin your blood. Do not take them unless your provider tells you to. Taking yyzd-jhj-gxnqnlf medicines, vitamins, herbs, and supplements. General instructions Follow instructions from your provider about what you may eat and drink. If you will be going home right after the procedure, plan to have a responsible adult: ?Take you home from the hospital or clinic. You will not be allowed to drive. ?Care for you for the time you are told. Ask your provider: ?How your surgery site will be marked. ?What steps will be taken to help prevent infection. These steps may include: ?Removing hair at the surgery site. ?Washing skin with a soap that kills germs. ?Taking antibiotics. What happens during the procedure? An IV may be inserted into one of your veins. You may be given: ?A local anesthetic to numb your urethral opening. This will be applied as a gel that will also lubricate the opening of the urethra. ?A sedative. This helps you relax. ?Anesthesia. This keeps you from feeling pain. It will make you fall asleep for surgery. A thin tube with a light and camera on the end (cystoscope) will be inserted into your urethra. Your urethra will be rinsed (irrigated) with a germ-free (sterile) water solution. Narrow parts of your urethra will be stretched open using a dilator tool. Your surgeon will start with a very thin dilator, then use wider dilators as needed. A thin tube with an inflatable balloon on the tip may be inserted into your urethra. The balloon may be inflated to help stretch your urethra open. The balloon may be coated with a medicine to help the urethra stay open longer. Your urethra will be irrigated. A catheter will be inserted into your bladder at the end of the procedure. The procedure may vary among providers and hospitals. What happens after the procedure? After the procedure, it is common to have: ?Burning pain when peeing. ?Blood in your pee. ?A need to pee frequently. You will be asked to pee before you leave the hospital or clinic. Your pee flow should improve within a few days. You may have a catheter in your bladder for 2 3 days following your procedure. Follow these instructions at home: Medicines Take mdgu-cvi-isfibza and prescription medicines only as told by your provider. If you were prescribed antibiotics, take them as told by your provider. Do not stop using the antibiotic even if you start to feel better. Ask your provider if the medicine prescribed to you: ?Requires you to avoid driving or using machinery. ?Can cause constipation. You may need to take these actions to prevent or treat constipation: ?Take qdch-yab-gutzzyw or prescription medicines. ?Eat foods that are high in fiber, such as beans, whole grains, and fresh fruits and vegetables. ?Limit foods that are high in fat and processed sugars, such as fried or sweet foods. General instructions If you were given a sedative during the procedure, it can affect you for several hours. Do not drive or operate machinery until your provider says that it is safe. If you were sent home with a soft tube (catheter) to help keep your urethra open, follow your provider's instructions about how and when to use it. Drink enough fluid to keep your pee pale yellow. Return to your normal activities as told by your provider. Ask your provider what activities are safe for you. Keep all follow-up visits. Your provider will check your healing and adjust your treatment plan as needed. Contact a health care provider if: Your pee is cloudy and smells bad. You develop new bleeding when you pee. You pass blood clots when you pee. You have pain that does not get better with medicine. You have a fever. Your genital area is swollen, bruised, or discolored. This includes: ?The penis, scrotum, and inner thighs for males. ?The outer genital organs (vulva) and inner thighs for females. Get help right away if: You develop new bleeding that does not stop. You cannot pee. Your catheter stops draining pee. You cannot pee after your catheter is removed. These symptoms may be an emergency. Get help right away. Call 911. Do not wait to see if the symptoms will go away. Do not drive yourself to the hospital. This information is not intended to replace advice given to you by your health care provider. Make sure you discuss any questions you have with your health care provider. Document Revised: 03/30/2023 Document Reviewed: 03/30/2023 [employer] Patient Education 2023 [employer] App. 11/25/2024 17:00:43 Dietary Guidelines to Help Prevent Kidney Stones Dietary Guidelines to Help Prevent Kidney Stones Kidney stones are deposits of minerals and salts that form inside your kidneys. Your risk of developing kidney stones may be greater depending on your diet, your lifestyle, the medicines you take, and whether you have certain medical conditions. Most people can lower their risks of developing kidney stones by following these dietary guidelines. Your dietitian may give you more specific instructions depending on your overall health and the type of kidney stones you tend to develop. What are tips for following this plan? Reading food labels Choose foods with no salt added or low-salt labels. Limit your salt (sodium) intake to less than 1,500 mg a day. Choose foods with calcium for each meal and snack. Try to eat about 300 mg of calcium at each meal.Foods that contain 200 500 mg of calcium a serving include: ?8 oz (237 mL) of milk, ztvniui-gbwblijpqjwx-rdzsl milk, and calcium- fortifiedfruit juice. Calcium-fortified means that calcium has been added to these drinks. ?8 oz (237 mL) of kefir, yogurt, and soy yogurt. ?4 oz (114 g) of tofu. ?1 oz (28 g) of cheese. ?1 cup (150 g) of dried figs. ?1 cup (91 g) of cooked broccoli. ?One 3 oz (85 g) can of sardines or mackerel. Most people need 1,000 1,500 mg of calcium a day. Talk to your dietitian about how much calcium is recommended for you. Shopping Buy plenty of fresh fruits and vegetables. Most people do not need to avoid fruits and vegetables, even if these foods contain nutrients that may contribute to kidney stones. When shopping for convenience foods, choose: ?Whole pieces of fruit. ?Pre-made salads with dressing on the side. ?Low-fat fruit and yogurt smoothies. Avoid buying frozen meals or prepared deli foods. These can be high in sodium. Look for foods with live cultures, such as yogurt and kefir. Choose high-fiber grains, such as whole-wheat breads, oat bran, and wheat cereals. Cooking Do not add salt to food when cooking. Place a salt shaker on the table and allow each person to addtheir own salt to taste. Use vegetable protein, such as beans, textured vegetable protein (TVP), or tofu, instead of meat inpasta, casseroles, and soups. Meal planning Eat less salt, if told by your dietitian. To do this: ?Avoid eating processed or pre-made food. ?Avoid eating fast food. Eat less animal protein, including cheese, meat, poultry, or fish, if told by your dietitian. To dothis: ?Limit the number of times you have meat, poultry, fish, or cheese each week. Eat a diet free of meat at least 2 days a week. ?Eat only one serving each day of meat, poultry, fish, or seafood. ?When you prepare animal proteins, cut pieces into small portion sizes. For most meat and fish, oneserving is about the size of the palm of your hand. Eat at least five servings of fresh fruits and vegetables each day. To do this: ?Keep fruits and vegetables on hand for snacks. ?Eat one piece of fruit or a handful of berries with breakfast. ?Have a salad and fruit at lunch. ?Have two kinds of vegetables at dinner. You may be told to limit foods that are high in a substance called oxalate. These include: ?Spinach (cooked), rhubarb, beets, sweet potatoes, and Vietnamese chard. ?Peanuts. ?Potato chips, ukrainian fries, and baked potatoes with skin on. ?Nuts and nut products. ?Chocolate. If you regularly take a diuretic medicine, make sure to eat at least 1 or 2 servings of fruits or vegetables that are high in potassium each day. These include: ?Avocado. ?Banana. ?[place], prune, carrot, or tomato juice. ?Baked potato. ?Cabbage. ?Beans and split peas. Lifestyle Drink enough fluid to keep your urine pale yellow. This is the most important thing you can do. Spread your fluid intake throughout the day. If you drink alcohol: ?Limit how much you have to: ?0 1 drink a day for women who are not . ?0 2 drinks a day for men. ?Know how much alcohol is in your drink. In the [place] one drink equals one 12 oz bottle of beer (355 mL), one 5 oz glass of wine (148 mL), or one 1 oz glass of hard liquor (44 mL). Lose weight if told by your health care provider. Work with your dietitian to find an eating plan and weight loss strategies that work best for you. General information Talk to your health care provider and dietitian about taking daily supplements. Depending on your health and the cause of your kidney stones, you may be told: ?Do not take high-dose supplements of vitamin C (1,000 mg a day or more). ?To take a calcium supplement. ?To take a daily probiotic supplement. ?To take other supplements such as magnesium, fish oil, or vitamin B6. Take xeyb-dtr-jazmcod and prescription medicines only as told by your health care provider. These include supplements. What foods should I limit? Limit your intake of the following foods, or eat them as told by your dietitian. Vegetables Spinach. Rhubarb. Beets. Canned vegetables. Pickles. Olives. Baked potatoes with skin. Grains Wheat bran. Baked goods. Salted crackers. Cereals high in sugar. Meats and other proteins Nuts. Nut butters. Large portions of meat, poultry, or fish. Salted, precooked, or cured meats, such as sausages, meat loaves, and hot dogs. Dairy Cheeses. Beverages Regular soft drinks. Regular vegetable juice. Seasonings and condiments Seasoning blends with salt. Salad dressings. Soy sauce. Ketchup. Barbecue sauce. Other foods Canned soups. Canned pasta sauce. Casseroles. Pizza. Lasagna. Frozen meals. Potato chips. Arabic fries. The items listed above may not be a complete list of foods and beverages you should limit. Contact a dietitian for more information. What foods should I avoid? Talk to your dietitian about specific foods you should avoid based on the type of kidney stones youhave and your overall health. Fruits Grapefruit. The item listed above may not be a complete list of foods and beverages you should avoid. Contact adietitian for more information. Summary Kidney stones are deposits of minerals and salts that form inside your kidneys. You can lower your risk of kidney stones by making changes to your diet. The most important thing you can do is drink enough fluid. Drink enough fluid to keep your urine pale yellow. Talk to your dietitian about how much calcium you should have each day, and eat less salt and animal protein as told by your dietitian. This information is not intended to replace advice given to you by your health care provider. Make sure you discuss any questions you have with your health care provider. Document Revised: 09/15/2022 Document Reviewed: 09/15/2022 [employer] Patient Education 2023 [employer] App. Follow Up Care 05/23/2024 15:39:44 With:ISAIAS SMITH, Marshall Conti, URL Address: [facility] [address] [place] [address]- When: Unknown [facility] 06-09-2025 NotePatient Education Nephrology Dietary Guidelines to Help Prevent Kidney Stones Kidney stones are deposits of minerals and salts that form inside your kidneys. Your risk of developing kidney stones may be greater depending on your diet, your lifestyle, the medicines you take, and whether you have certain medical conditions. Most people can lower their risks of developing kidney stones by following these dietary guidelines. Your dietitian may give you more specific instructions depending on your overall health and the type of kidney stones you tend to develop. What are tips for following this plan? Reading food labels ??? Choose foods with no salt added or low-salt labels. Limit your salt (sodium) intake to lessthan 1,500 mg a day. ??? Choose foods with calcium for each meal and snack. Try to eat about 300 mg of calcium at each meal. Foods that contain 200?500 mg of calcium a serving include: ? 8 oz (237 mL) of milk, vluqwti-fspaxitmlvwx-rkema milk, and calcium- fortifiedfruit juice. Calcium-fortified means that calcium has been added to these drinks. ? 8 oz (237 mL) of kefir, yogurt, and soy yogurt. ? 4 oz (114 g) of tofu. ? 1 oz (28 g) of cheese. ? 1 cup (150 g) of dried figs. ? 1 cup (91 g) of cooked broccoli. ? One 3 oz (85 g) can of sardines or mackerel. Most people need 1,000?1,500 mg of calcium a day. Talk to your dietitian about how much calcium is recommended for you. Shopping ??? Buy plenty of fresh fruits and vegetables. Most people do not need to avoid fruits and vegetables, even if these foods contain nutrients that may contribute to kidney stones. ??? When shopping for convenience foods, choose: ? Whole pieces of fruit. ? Pre-made salads with dressing on the side. ? Low-fat fruit and yogurt smoothies. ??? Avoid buying frozen meals or prepared deli foods. These can be high in sodium. ??? Look for foods with live cultures, such as yogurt and kefir. ??? Choose high-fiber grains, such as whole-wheat breads, oat bran, and wheat cereals. Cooking ??? Do not add salt to food when cooking. Place a salt shaker on the table and allow each person toadd their own salt to taste. ??? Use vegetable protein, such as beans, textured vegetable protein (TVP), or tofu, instead of meat in pasta, casseroles, and soups. Meal planning ??? Eat less salt, if told by your dietitian. To do this: ? Avoid eating processed or pre-made food. ? Avoid eating fast food. ??? Eat less animal protein, including cheese, meat, poultry, or fish, if told by your dietitian. To do this: ? Limit the number of times you have meat, poultry, fish, or cheese each week. Eat a diet free of meat at least 2 days a week. ? Eat only one serving each day of meat, poultry, fish, or seafood. ? When you prepare animal proteins, cut pieces into small portion sizes. For most meat and fish, one serving is about the size of the palm of your hand. ??? Eat at least five servings of fresh fruits and vegetables each day. To do this: ? Keep fruits and vegetables on hand for snacks. ? Eat one piece of fruit or a handful of berries with breakfast. ? Have a salad and fruit at lunch. ? Have two kinds of vegetables at dinner. ??? You may be told to limit foods that are high in a substance called oxalate. These include: ? Spinach (cooked), rhubarb, beets, sweet potatoes, and Vietnamese chard. ? Peanuts. ? Potato chips, ukrainian fries, and baked potatoes with skin on. ? Nuts and nut products. ? Chocolate. ??? If you regularly take a diuretic medicine, make sure to eat at least 1 or 2 servings of fruits or vegetables that are high in potassium each day. These include: ? Avocado. ? Banana. ? [place], prune, carrot, or tomato juice. ? Baked potato. ? Cabbage. ? Beans and split peas. Lifestyle ??? Drink enough fluid to keep your urine pale yellow. This is the most important thing you can do.Spread your fluid intake throughout the day. ??? If you drink alcohol: ? Limit how much you have to: ? 0?1 drink a day for women who are not . ? 0?2 drinks a day for men. ? Know how much alcohol is in your drink. In the [place] one drink equals one 12 oz bottle of beer (355 mL), one 5 oz glass of wine (148 mL), or one 1? oz glass of hard liquor (44 mL). ??? Lose weight if told by your health care provider. Work with your dietitian to find an eating plan and weight loss strategies that work best for you. General information ??? Talk to your health care provider and dietitian about taking daily supplements. Depending on your health and the cause of your kidney stones, you may be told: ? Do not take high-dose supplements of vitamin C (1,000 mg a day or more). ? To take a calcium supplement. ? To take a daily probiotic supplement. ? To take other supplements such as magnesium, fish oil, or vitamin B6. ??? Take hbyc-ynl-bntqffx and prescription medicines only as told by your health (more content not included)...[facility]06-04-2025 History of Present illness Narrative* Franco Whitmore, DO - 11/20/2024 3:45 PM EDT IM [...] swelling in the left knee with occasional catching sensation Severity is mild It normally occurs [...] M (9-13 inches)) Pulse 84 Temp 36.5 C (97.7 F) (Oral) Resp 18 Ht 172.7 cm (5' 7.99 ) Wt 80.3 kg (177 lb) SpO2 98% BMI 26.92 kg/m Physical Exam Vitals reviewed. Constitutional: General: She [...] ml/min/1.73sq.m Final Other Testing No results found. Franco Whitmore DO., [facility]: [phone] documented in this encounterA[facility] NoteEntered by Joseline Johnson MA on November 15, 2024 10:12:30 EDT From: Joesline Johnson MA To: [facility] Sent: 11/15/2024 10:12:30 EDT Subject: Medication Management Not Approved: Refill not appropriate, PROPOSAL SENT TO PROVIDER FOR SIGNATURE. sertraline (SERTRALINE 100MG TABLETS) TAKE 1 TABLET BY MOUTH DAILY Qty: 90 tab(s) Days Supply: 90 Refills: 0 Substitutions Allowed Route To Pharmacy - [facility] Signed by Joseline Johnson MA From: [facility] To: Celia Eason CNP Sent: November 15, 2024 8:00:51 AM CDT Subject: Medication Management Due: November 16, 2024 12:07:55 AM CDT On Hold Pending Signature Dispensed Drug: sertraline (sertraline 100 mg oral tablet), TAKE 1 TABLET BY MOUTH DAILY Quantity: 90 tab(s) Days Supply: 90 Refills: 0 Substitutions [id number] From: Jennifer Nick MA ([facility] [place] [place] To: Celia Eason CNP; Sent: 10/15/2024 09:08:01 EDT Subject: FW: Medication Management Due Date/Time: 10/16/2024 09:00:00 EDT Caller Name: NICOLETTE EVANGELISTA; Caller Number: Christine , M last visit: 11-16-22 next visit: none Patient matched by Jennifer Nick MA on 10/15/2024 09:06:35 EDT From: [facility] To: Celia Eason CNP Sent: October 15, 2024 8:00:37 AM CDT Subject: Medication Management Due: October 16, 2024 12:13:09 AM CDT On Hold Pending Signature Dispensed Drug: atorvastatin (atorvastatin 10 mg oral tablet), TAKE 1 TABLET BY MOUTH DAILY Quantity: 90 tab(s) Days Supply: 90 Refills: 0 Substitutions Allowed Notes from Pharmacy: From: Celia Eason APRN, CNP To: [facility] Sent: 10/15/2024 10:13:41 EDT Subject: FW: Medication Management Submitted: Complete:atorvastatin (atorvastatin 10 mg oral tablet) Signed by Celia Eason APRN, CNP 10/15/2024 10:13:00 EDT Approved with modifications: atorvastatin (ATORVASTATIN 10MG TABLETS) TAKE 1 TABLET BY MOUTH DAILY Qty: 90 tab(s) Days Supply: 90 Refills: 1 Substitutions Allowed Route To Pharmacy - [facility]02-24-2025 History of Present illness Narrative* Tsering Velez MD - 08/12/2024 3:15 PM EST Images from the original note were not included. Tsering Velez MD Obstetrics and Gynecology Patient: Nicolette Evangelista : 1975 (49 y.o.) Yearly Wellness Exam Date: 08/12/2024 Reason for Visit - Chief Complaint Patient presents with Gynecologic Exam LMP: HYST Last Mammogram: Bilateral Mastectomy N/A Last Pap: 10/13/22- neg Colonoscopy: [facility] [place] Complaints: The patient has a medical history that includes a mastectomy performed by Dr. Orona They also had a colonoscopy last year with normal results. The patient has tested negative for the BRCA gene. In terms of social history, the patient has one son. Genetic testing has confirmed the negative result for the BRCA gene. Visit Vitals BP 120/70 Wt 177 lb LMP (LMP Unknown) BMI 27.72 kg/m OB Status Hysterectomy Smoking Status Never BSA 1.95 m History of Present Illness, Associated Treatments and Results - OB History Para Term AB Living 1 0 0 0 0 1 SAB IAB Ectopic Multiple Live Births 0 0 0 0 1 # Outcome Date GA Lbr Leoncio/2nd Weight Sex Type Anes PTL Lv 1 Obstetric Comments Pap 10-13-22 Negative. Review of Systems - Constitutional: Negative. HENT: Negative. Eyes: Negative. Respiratory: Negative. Cardiovascular: Negative. Gastrointestinal: Negative. Endocrine: Negative. Genitourinary: Negative. Musculoskeletal: Negative. Skin: Negative. Allergic/Immunologic: Negative. Neurological: Negative. Hematological: Negative. Psychiatric/Behavioral: Negative. Allergies Allergen Reactions Azithromycin Unknown Sulfanilamide Unknown Current Outpatient Medications: cephalexin (Keflex) 250 MG capsule, TAKE 1 CAPSULE BY MOUTH ON MON, MON, AND MON, Disp: , Rfl: atorvastatin (Lipitor) 10 MG tablet, Take 10 mg by mouth in the morning., Disp: , Rfl: Klor-Con/EF 25 MEQ effervescent tablet, Take 25 mEq by mouth in the morning and 25 mEq before bedtime., Disp: , Rfl: levothyroxine (Synthroid, Levoxyl) 50 MCG tablet, Take 50 mcg by mouth in the morning. Take on an empty stomach.., Disp: , Rfl: metFORMIN XR (Glucophage-XR) 500 MG 24 hr tablet, take 2 tablets by mouth twice a day with breakfast and dinner, Disp: , Rfl: oxybutynin XL (Ditropan-XL) 10 MG 24 hr tablet, Take 10 mg by mouth in the morning., Disp: , Rfl: phentermine 15 MG capsule, TAKE 1 CAPSULE BY MOUTH EVERY DAY FOR 30 DAYS, Disp: , Rfl: sertraline (Zoloft) 100 MG tablet, Take 100 mg by mouth in the morning., Disp: , Rfl: Past Medical History: Diagnosis Date Anxiety Breast cancer (CMS/HCC) Depression (CMS/HCC) History of chemotherapy Breast cancer Hyperlipidemia (CMS/HCC) Post-menopausal Past Surgical History: Procedure Laterality Date BREAST RECONSTRUCTION CYSTOSCOPY W/ STONE MANIPULATION Stone removal - Nephrolithiasis DILATION AND CURETTAGE OF UTERUS 03/11/2023 Hysteroscopy/ D and C - Menorrhagia DILATION AND CURETTAGE OF UTERUS 07/29/2022 LAPAROSCOPIC HYSTERECTOMY 07/07/2023 TLH/BSO MASTECTOMY Bilateral Breast Cancer PARATHYROIDECTOMY 2010 Hypercalcemia THYROIDECTOMY 02/10/2020 Total Left thyroidectomy; Partial Right lobectomy Family History Problem Relation Name Age of Onset Prostate cancer Father Prostate cancer Father's Brother Social History Tobacco Use Smoking Status Never Smokeless Tobacco Never Physical Exam - General appearance, mentation, extraocular movements, facial strength and movement, hearing, upper and lower extremity strength and tone, sensation to gross testing, coordination, and gait are normalor at baseline unless noted below. Physical Exam Constitutional: Appearance: Normal appearance. Genitourinary: Genitourinary Comments: Bilateral mastectomy with bilateral reconstruction Right Labia: No lesions. Left Labia: No lesions. Vaginal cuff intact. Mild vaginal atrophy present. Right Adnexa: not tender and no mass present. Left Adnexa: not tender and no mass present. Cervix is absent. Uterus is absent. Breasts: Right: Normal. No mass or nipple discharge. Left: Normal. No mass or nipple discharge. HENT: Head: Normocephalic and atraumatic. Cardiovascular: Rate and Rhythm: Normal rate and regular rhythm. Pulmonary: Breath sounds: Normal breath sounds. Chest: Abdominal: General: There is no distension. Palpations: Abdomen is soft. There is no mass. Tenderness: There is no abdominal tenderness. Musculoskeletal: General: Normal range of motion. Cervical back: Neck supple. Neurological: Mental Status: She is alert and oriented to person, place, and time. Skin: General: Skin is warm and dry. Psychiatric: Mood and Affect: Mood normal. Assessment/Plan ICD-10-CM 1. Encounter for screening for cervical cancer Z12.4 IGP, APT HPV,RFX 16/18,45 2. Encounter for gynecological examination without abnormal finding Z01.419 IGP, APT HPV,RFX 16/18,45 3. Hx of hysterectomy Z90.710 Nicolette was seen today for gynecologic exam. Diagnoses and all orders for this visit: Encounter for screening for cervical cancer (Primary) - IGP, APT HPV,RFX 16/18,45 Encounter for gynecological examination without abnormal finding - IGP, APT HPV,RFX 16/18,45 Hx of hysterectomy Pap and exam performed. Results can be found in MyChart in 7 days Bone health discussed Return 1 year 1. Routine gynecological follow-up post-hysterectomy: - - BRCA gene testing negative - Colonoscopy last year with normal results - Plan: a) Review results of recent tests available in patient's chart b) Discuss option to continue or discontinue Pap smears post-hysterectomy c) Follow-up in one year or sooner if any problems or concerns arise 2. Current health status: - Patient denies any current problems or concerns - No vaginal discharge reported - Family history negative for breast cancer 3. Genetic testing: - BRCA gene testing negative 4. Preventive care: - Colonoscopy last year with normal results 5. Follow-up plan: - Review recent test results - Discuss Pap smear options post-hysterectomy - Schedule follow-up in one year or sooner if needed documented in this encounterWestern Missouri Mental Health [id number] Evaluation note* Diagnosis Onset Date Resolution Status Admit Date BMI 29.0-29.9,adult acuteFebruary 2024 3:06pmFamily history of diabetes mellitus (DM)acute August 06, 2024 3:06pmHyperlipemiaacuteFebruary 2024 3:06pm HypothyroidismacuteFebruary 2024 3:06pmObesityacuteFebruary 2024 3:06pmPrediabetesacuteFebruary 2024 3:06pmVitamin B 12 deficiencyacute August 06, 2024 3:06pmVitamin D deficiencyacuteFebruary 2024 3:06pmBMI 29.0-29.9,adultacuteApril 2024 3:17pmFamily history of diabetes mellitus (DM)acuteApril 2024 3:17pmHyperlipemiaacuteApril 2024 3:17pm HypothyroidismacuteApril 2024 3:17pmObesityacuteApril 2024 3:17pm PrediabetesacuteApril 2024 3:17pmVitamin B 12 deficiencyacuteApril 2024 3:17pmVitamin D deficiencyacuteApril 2024 3:17pm [facility] Work Phone: 1(816) 252-638912-23-2024 Evaluation note* Diagnosis Onset Date Resolution Status Admit Date BMI 29.0-29.9,adult acuteDecember 2023 1:50pmFamily history of diabetes mellitus (DM)acute June 10, 2024 1:50pmHyperlipemiaacuteDecember 2023 1:50pm HypothyroidismacuteDecember 2023 1:50pmObesityacuteDecember 2023 1:50pmPrediabetesacuteDecember 2023 1:50pmVitamin B 12 deficiencyacute June 10, 2024 1:50pmVitamin D deficiencyacuteDecember 2023 1:50pmBMI 29.0-29.9,adultacuteFebruary 2024 3:06pmFamily history of diabetes mellitus (DM)acuteFebruary 2024 3:06pmHyperlipemiaacuteFebruary 2024 3:06pmHypothyroidismacuteFebruary 2024 3:06pmObesityacuteFebruary 2024 3:06pmPrediabetesacuteFebruary 2024 3:06pmVitamin B 12 deficiency acuteFebruary 2024 3:06pmVitamin D deficiencyacuteFebruary 2024 3:06pm [facility] Work Phone: 1(994) 802-158912-05-2024 Hospital Discharge instructions Patient Education 05/23/2024 15:11:20 Urinary Tract Infection, Adult Urinary Tract Infection, [...] Treatment for this condition includes: Antibiotic medicine. Vuns-mip-drnmlzl medicines to treat discomfort. Drinking enough water [...] Follow these instructions at home: Medicines Take cbcm-ika-txqxxmh and prescription medicines only as told by [...] with your health care provider. Document Revised: 01/10/2021 Document Reviewed: 01/15/2021 [employer] Patient Education 2023 [employer]. Follow Up Care 11/07/2023 15:49:07 With:JOSELYN HAYES PA-C, URL Address: [address] [place] [address] When: Unknown [facility] 11-18-2024 Note From: Jennifer Nick MA ([facility] [place] To: Celia Eason CNP; Sent: 05/06/2024 08:26:34 EST Subject: FW: Medication Management Due Date/Time: 05/06/2024 09:00:00 EST Caller Name: NICOLETTE EVANGELISTA; Caller Number: Christine , Sangeeta last visit: 11-16-22 next visit: none Patient matched by Jennifer Nick MA on 05/06/2024 08:24:53 EST From: [facility] To: Celia Eason CNP Sent: May 04, 2024 8:00:42 AM MEDICAL PHYSICS PROFESSOR Subject: Medication Management Due: May 05, 2024 1:09:30 AM MEDICAL PHYSICS PROFESSOR On Hold Pending Signature Dispensed Drug: atorvastatin (atorvastatin 10 mg oral tablet), TAKE 1 TABLET BY MOUTH DAILY Quantity: 90 tab(s) Days Supply: 90 Refills: 0 Substitutions Allowed Notes from Pharmacy: From: Celia Eason APRN, CNP To: [facility] Sent: 05/06/2024 09:32:22 EST Subject: FW: Medication Management Submitted: Complete:atorvastatin (atorvastatin 10 mg oral tablet) Signed by Celia Eason APRN, CNP 05/06/2024 09:32:00 EST Approved with modifications: atorvastatin (ATORVASTATIN 10MG TABLETS) TAKE 1 TABLET BY MOUTH DAILY Qty: 90 tab(s) Days Supply: 90 Refills: 1 Substitutions Allowed Route To Pharmacy - Walk Score [facility]10-17-2024 History of Present illness Narrative* Henok Dumont APRN-TEJAL - 04/04/2024 3:20 PM EDT Images from the original note were not included. [address] [place] [address] SUBJECTIVE: Patient ID: Nicolette Evangelista is a 49 y.o. female. Chief Complaint Patient presents with Annual Exam Presents for annual physical. She is . Works full-time at [employer] She does not smoke or consume alcohol. The following portions of the patient's history were reviewed and updated as appropriate: allergies, current medications, past family history, past medical history, past social history, past surgicalhistory and problem list. Past Surgical History: Procedure Laterality Date BREAST SURGERY HYSTERECTOMY THYROIDECTOMY partial TONSILLECTOMY Past Medical History: Diagnosis Date Breast cancer ([facility]) double mastectomy Chronic UTI Disease of thyroid [...] and the following intervention(s) were applied: encouragement toexercise. Physical Exam Vitals and nursing note reviewed. [...] weight loss. Is exercising. Has lost 6 poundssince November. Recommend influenza, COVID -19 booster, and shingles vaccination. May obtain from pharmacy of her choice. Labs drawn in office today [facility] is located in [place]. States she had SPARKLE June 2023. ALL QUESTIONS ANSWERED Total time spent was 25 minutes: Preparing to see the patient (e.g., review of tests) Obtaining and/or reviewing separately obtained history Performing a medically appropriate examination and/or evaluation Counseling and educating the patient/family/caregiver Ordering medications, tests, or procedures Follow-up: Annual JEFF Porras 04/04/24 1559 documented in [facility]* Diagnosis Onset Date Resolution Status Admit Date BMI 29.0-29.9,adult acuteSeptember 2023 3:06pmFamily history of diabetes mellitus (DM)acute March 07, 2024 3:06pmHyperlipemiaacuteSeptember 2023 3:06pm HypothyroidismacuteSept2023 3:06pmObesityacuteSeptember 2023 3:06pmPrediabetesacuteSeptember 2023 3:06pmVitamin B 12 deficiencyacute March 07, 2024 3:06pmVitamin D deficiencyacuteSept2023 3:06pm BMI 29.0-29.9,adultacuteNovember 2023 3:22pmFamily history of diabetes mellitus (DM)acuteNov2023 3:22pmHyperlipemiaacuteNov2023 3:22pmHypothyroidismacuteNov2023 3:22pmObesityacuteNovember 2023 3:22pmPrediabetesacuteNovember 2023 3:22pmVitamin B 12 deficiency acuteNov2023 3:22pmVitamin D deficiencyacuteNovember 2023 3:22pm [facility] Work Phone: 1(795) 316-475406-12-2024 History of Present illness Narrative* JEFF Porras - 11/29/2023 2:00 PM EDT Images from the original note were not included. [address] [place] [address] SUBJECTIVE: Patient ID: Nicolette Evangelista is a 48 y.o. female. Chief Complaint Patient presents with new patient Patient presents for new patient establishment. She is a previous patient of Andreina Monge. History includes bilateral mastectomy due to left breast cancer at age of 34. She has also had partial thyroidectomy and is taking levothyroxine replacement. History of total abdominal hysterectomy due to fibroids. She offers no complaints today. The following portions of the patient's history were reviewed and updated as appropriate: allergies, current medications, past family history, past medical history, past social history, past surgicalhistory and problem list. Past Surgical History: Procedure Laterality Date BREAST SURGERY HYSTERECTOMY THYROIDECTOMY partial TONSILLECTOMY Past Medical History: Diagnosis Date Breast cancer ([facility]) double mastectomy Chronic UTI Disease of thyroid [...] bruise/bleed easily. Psychiatric/Behavioral: Negative. PHYSICAL EXAMINATION: Vitals: 11/29/23 1422 BP: 100/70 BP Site: Left Arm BP Postition: Sitting Pulse: 95 Resp: 18 Temp: 36.7 C (98 F) TempSrc: Oral SpO2: 95% Weight: 83.1 kg (183 lb 1.6 oz) Height: 172.7 cm (5' 8 ) Patient noted to have elevated BMI and the following intervention(s) were applied: encouragement toexercise. Physical Exam Vitals and nursing note reviewed. [...] normal. ASSESSMENT/PLAN: Nicolette was seen today for new patient. Diagnoses and all orders for this visit: Mixed hyperlipidemia - atorvastatin (LIPITOR) 10 mg tablet; Take 1 tablet (10 mg total) by mouth in the morning. Postoperative hypothyroidism - levothyroxine (SYNTHROID, LEVOTHROID) 50 MCG tablet; Take 1 tablet (50 mcg total) by mouth in themorning. Anxiety and depression - sertraline (ZOLOFT) 100 mg tablet; Take 1 tablet (100 mg total) by mouth in the morning. Anxiety and depression history Depression: Not at risk (11/29/2023) PHQ-2 PHQ-2 Score: 0 She reports her moods are stable Continue sertraline 100 mg oral daily 2. Mixed hyperlipidemia Lipid panel with next lab draw Continue atorvastatin 10 mg oral daily 3. Postoperative hypothyroidism Reorder levothyroxine 50 mcg oral daily TSH with next lab draw. 4. Body mass index is 27.84 kg/m . Patient noted to have elevated BMI and the following intervention(s) were applied: Discussed current weight today. Consider healthy food choices, portion control. Avoid sugary beverages and high concentrated sweets. Routine exercise regimen encouraged. -She is currently seeing weight loss clinic in [place]. Is taking phentermine 15 mg oral daily andmetformin XR 500 mg oral daily ALL QUESTIONS ANSWERED Total time spent was 40 minutes: Preparing to see the patient (e.g., review of tests) Obtaining and/or reviewing separately obtained history Performing a medically appropriate examination and/or evaluation Counseling and educating the patient/family/caregiver Ordering medications, tests, or procedures Follow-up: Annual physical With labs JEFF Porras 11/29/23 1504 documented in this encounterOhio State East HospitalInsp[facility] HospitalAoatik22-09-3674 Hospital Discharge instructions Patient Education 11/07/2023 15:50:08 [...] Treatment for this condition includes: Antibiotic medicine. Ydgl-usm-mfzcrre medicines to treat discomfort. Drinking enough water [...] Follow these instructions at home: Medicines Take gque-rbi-kxbypbd and prescription medicines only as told by [...] provider. Document Revised: 01/15/2021 Document Reviewed: 01/15/2021 [employer] Patient Education 2022 [employer]. Follow Up Care 10/19/2023 15:34:38 With:JOSELYN HAYES PA-C, URL Address: [address] [place] [address] [phone] When: Unknown Comments:6 mos (no labs) [facility] 12-26-2023 Hospital Discharge instructions Follow Up Care 06/13/2023 14:00:48 With:JOSELYN HAYES PA-C, URL Address: [address] [place] [address] When:Within 4 Month(s) [facility] 12-26-2023 Evaluation note* Encounter Date Diagnosis Assessment Notes Treatment Notes Treatment Clinical Notes May, Obesity (ICD-10 - E66.9) Plan, purchase and prepare healthy foods. Use shopping list, electronic shopping to curb impulse buying. Stock pantry with healthy foods. Keep fruits and vegetables accessible. Avoid bringing unhealthy foods in to the home. Plan family meals minimally 3 x per week. Decrease screen time. May,Hyperlipidemia (ICD-10 - E78.5)Discussed risks of elevated LDL. Encouraged intake of foods low in saturated fat as well as supplements (tatyana, fish oil). Discussed LDL contributing to insulin resistance and increase cardiovascular risk factors. May,Hypothyroidism (ICD-10 - E03.9)Interval surveillance and optimization May,History of breast cancer (ICD-10 - Z85.3) May,Thyroid nodule (ICD-10 - E04.1)Pathology from [facility], 02/10/2020; left thyroid lobe lobectomy incidental focus of invasive papillary thyroid carcinoma confined to thyroid parenchyma negative for perineural and lymphovascular invasion, follicular adenoma, nodular hyperplasia and mild chronic thyroiditis, 1 minute lymph node negative for metastatic carcinoma. Right inferior thyroid lobe partial resection benign thyroid parenchyma with nodular hyperplasia. Report scannedPathology reviewed, discussion of risk to benefit with history of papillary thyroid cancer, she agrees and is comfortable proceeding with GLP-1 RA May,rediabetes (ICD-10 - R73.09) May,Family history of diabetes mellitus (ICD-10 - Z83.3)Discussed how diabetes II delayed or avoided with [...] 30 minutes most days of the week. May,Vitamin D deficiency (ICD-10 - E55.9)Vitamin D deficiency suspected. Vitamin D has been noted to have positive impact on mood and energy. We can recheck periodically and make recommendations for long-term supplementation with gecz-jja-tpjnndt formulations or prescription grade repletion. May,MI 28.0-28.9,adult (ICD-10 - Z68.28) May,OtherI have spent 30 minutes with this patient and over 50% of the visit was counseling done by myself, Jessica MARI. [employer] Other 10-30-2023 Evaluation note* Encounter Date Diagnosis Assessment Notes Treatment Notes Treatment Clinical Notes Mar, Obesity (ICD-10 - E66.9) Plan, purchase and prepare healthy foods. Use shopping list, electronic shopping to curb impulse buying. Stock pantry with healthy foods. Keep fruits and vegetables accessible. Avoid bringing unhealthy foods in to the home. Plan family meals minimally 3 x per week. Decrease screen time. Mar,Hyperlipidemia (ICD-10 - E78.5)Discussed risks of elevated LDL. Encouraged intake of foods low in saturated fat as well as supplements (tatyana, fish oil). Discussed LDL contributing to insulin resistance and increase cardiovascular risk factors. Mar,Hypothyroidism (ICD-10 - E03.9)Interval surveillance and optimization Mar,History of breast cancer (ICD-10 - Z85.3) Mar,Thyroid nodule (ICD-10 - E04.1)Pathology from [facility], 02/10/2020; left thyroid lobe lobectomy incidental focus of invasive papillary thyroid carcinoma confined to thyroid parenchyma negative for perineural and lymphovascular invasion, follicular adenoma, nodular hyperplasia and mild chronic thyroiditis, 1 minute lymph node negative for metastatic carcinoma. Right inferior thyroid lobe partial resection benign thyroid parenchyma with nodular hyperplasia. Report scannedPathology reviewed, discussion of risk to benefit with history of papillary thyroid cancer, she agrees and is comfortable proceeding with GLP-1 RA Mar,rediabetes (ICD-10 - R73.09) Mar,Family history of diabetes mellitus (ICD-10 - Z83.3)Discussed how diabetes II delayed or avoided with [...] 30 minutes most days of the week. Mar,Vitamin D deficiency (ICD-10 - E55.9)Vitamin D deficiency suspected. Vitamin D has been noted to have positive impact on mood and energy. We can recheck periodically and make recommendations for long-term supplementation with yrbg-htg-jwlgwum formulations or prescription grade repletion. Mar,MI 29.0-29.9,adult (ICD-10 - Z68.29) Mar,OtherI have spent 30 minutes with this patient and over 50% of the visit was counseling done by myself, Jessica MARI. [employer] Other 08-30-2023 Evaluation note* Encounter Date Diagnosis Assessment Notes Treatment Notes Treatment Clinical Notes Jan, Obesity (ICD-10 - E66.9) Plan, purchase and prepare healthy foods. Use shopping list, electronic shopping to curb impulse buying. Stock pantry with healthy foods. Keep fruits and vegetables accessible. Avoid bringing unhealthy foods in to the home. Plan family meals minimally 3 x per week. Decrease screen time. Jan,Obesity (BMI 30-39.9) (ICD-10 - E66.9) Jan,Hyperlipidemia (ICD-10 - E78.5)Discussed risks of elevated LDL. Encouraged intake of foods low in saturated fat as well as supplements (tatyana, fish oil). Discussed LDL contributing to insulin resistance and increase cardiovascular risk factors. Jan,Hypothyroidism (ICD-10 - E03.9)Interval surveillance and optimization Jan,History of breast cancer (ICD-10 - Z85.3) Jan,Thyroid nodule (ICD-10 - E04.1)Pathology from [facility], 02/10/2020; left thyroid lobe lobectomy incidental focus of invasive papillary thyroid carcinoma confined to thyroid parenchyma negative for perineural and lymphovascular invasion, follicular adenoma, nodular hyperplasia and mild chronic thyroiditis, 1 minute lymph node negative for metastatic carcinoma. Right inferior thyroid lobe partial resection benign thyroid parenchyma with nodular hyperplasia. Report scannedPathology reviewed, discussion of risk to benefit with history of papillary thyroid cancer, she agrees and is comfortable proceeding with GLP-1 RA Jan,rediabetes (ICD-10 - R73.09) Jan,Family history of diabetes mellitus (ICD-10 - Z83.3)Discussed how diabetes II delayed or avoided with [...] 30 minutes most days of the week. Jan,Vitamin D deficiency (ICD-10 - E55.9)Vitamin D deficiency suspected. Vitamin D has been noted to have positive impact on mood and energy. We can recheck periodically and make recommendations for long-term supplementation with vrqo-vyd-wjdvegm formulations or prescription grade repletion. Jan,OtherI have spent 30 minutes with this patient and over 50% of the visit was counseling done by myself, Jessica MARI. [employer] Other 08-28-2023 Evaluation note* Encounter Date Diagnosis Assessment Notes Treatment Notes Treatment Clinical Notes Jan, Obesity, unspecified classification, unspecified obesity type, unspecified whether serious comorbidity present (ICD-10 - E66.9) Jan,MI 30.0-30.9,adult (ICD-10 - Z68.30) Jan,OtherSummary of Visit: (A) Much emotional support provided today (B) Discussed including protein with all snacks (C) Reviewed the plate method [employer] Other 11-09-2022 Hospital Discharge instructions Patient Education 04/27/2022 14:59:23 Kidney Stones, Uhhc-sz-Jxzz Kidney Stones Kidney stones are rock-like masses [...] Follow these instructions at home: Medicines Take qkhr-sfv-wknsyav and prescription medicines only as told by [...] 11/21/2008 Document Revised: 10/22/2019 Document Reviewed: 10/22/2019 [employer] Patient Education 2020 [employer] App. Follow Up Care 02/19/2021 09:16:30 With:JOSELYN HAYES PA-C, URL Address: [address] [address] When: Unknown [facility] evaluation + Plan note Future Appointments Appointment Date:05/02/2023 03:00:00 PM Scheduled Provider:JOSELYN HAYES PA-C Location:[facility] Appointment Type:URO Office Visit [facility] evaluation + Plan note Future Appointments Appointment Date:05/02/2023 03:00:00 PM Scheduled Provider:JOSELYN HAYES PA-C Location:[facility] Appointment Type:URO Office Visit Diagnostic Tests Pending * Urine [facility]ments Appointment Date:08/21/2023 03:00:00 PM Scheduled Provider: Location:[facility] Appointment Type:URO Nurse Visit Appointment Date:10/23/2023 02:45:00 PM Scheduled Provider:Marshall ESPARZA MD Location:[facility] [place] Appointment Type:URO Office Visit [facility] Evaluation + Plan note Future Appointments Appointment Date:10/23/2023 02:45:00 PM Scheduled Provider:Marshall ESPARZA MD [facility] Appointment Type:URO Office Visit [facility] evaluation + Plan note Future Appointments Appointment Date:10/23/2023 02:45:00 PM Scheduled Provider:Marshall ESPARZA MD Location[facility] Appointment Type:URO Office Visit Diagnostic Tests Pending * Urine Culture [facility] Appointments Appointment Date:05/14/2024 03:00:00 PM Scheduled Provider:JOSELYN HAYES PA-C Location:[facility] Appointment Type:URO Office Visit [facility] evaluation + Plan note Future Appointments Appointment Date:05/14/2024 03:00:00 PM Scheduled Provider:JOSELYN HAYES PA-C Location:[facility] Appointment Type:URO Office Visit Diagnostic Tests Pending * Urine Culture [facility] App[facility]ments Appointment Date:11/25/2024 03:15:00 PM Scheduled Provider:Marshall [facility] Office Visit [facility] evaluation + Plan note Future Appointments Appointment Date:11/25/2024 03:15:00 PM Scheduled Provider:Marshall ESPARZA MD [facility] Office Visit Diagnostic Tests Pending * Urine Culture 05/23/24 [facility] evalumrckc noteNo assessment information available [facility] Work Phone: evaluation noteNo InformationNortEncompass Health Rehabilitation [facility] [employer] Other evaluation noteNortEncompass Health Rehabilitation Hospital of [facility] [employer] Other evaluation note* Diagnosis Onset Date Resolution Status BMI 28.0-28.9,adult acuteHyperlipemiaacuteHypothyroidismacuteObesityacutePrediabetesacuteVitamin D deficiencyacuteS/P hysterectomy with oophorectomynoneactive [facility] Work Phone: evaluation note* Diagnosis Onset Date Resolution Status BMI 28.0-28.9,adult acuteHyperlipemiaacuteHypothyroidismacuteObesityacutePrediabetesacuteVitamin D deficiencyacuteS/P hysterectomy with oophorectomynoneactiveBMI 29.0-29.9,adult acuteFamily history of diabetes mellitus (DM)acuteHyperlipemiaacute HypothyroidismacuteObesityacutePrediabetesacuteVitamin B 12 deficiencyacute Vitamin D deficiencyacute [facility] Work Phone: evaluation note* Diagnosis Onset Date Resolution Status BMI 29.0-29.9,adult acuteFamily history of diabetes mellitus (DM)acuteHyperlipemiaacute HypothyroidismacuteObesityacutePrediabetesacuteVitamin B 12 deficiencyacute Vitamin D deficiencyacute [facility] Work Phone: evaluation note* Diagnosis Onset Date Resolution Status BMI 29.0-29.9,adult acuteFamily history of diabetes mellitus (DM)acuteHyperlipemiaacute HypothyroidismacuteObesityacutePrediabetesacuteVitamin B 12 deficiencyacute Vitamin D deficiencyacuteBMI 29.0-29.9,adultacuteFamily history of diabetes mellitus (DM)acuteHyperlipemiaacuteHypothyroidismacuteObesityacutePrediabetes acuteVitamin B 12 deficiencyacuteVitamin D deficiencyacute [facility] Work Phone: evaluation note* Diagnosis Postoperative hypothyroidism- Primary Postsurgical hypothyroidism Mixed hyperlipidemia Anxiety and depression documented in [facility] encounter [facility]* Diagnosis Annual physical exam- Primary Routine general medical examination at a health care facility Blood tests for routine general physical examination Laboratory examination ordered as part of a routine general medical examination documented [facility]* Diagnosis Encounter for screening for cervical cancer- Primary Encounter for gynecological examination without abnormal finding Hx of hysterectomy documented [facility]* Diagnosis Postoperative hypothyroidism Postsurgical hypothyroidism documented in this encounter [facility]* Diagnosis Degenerative tear of lateral meniscus, left- Primary Herpes zoster without complication documented [facility]* Diagnosis Acute pain of left knee- Primary documented in this encounter [facility] HealthcareEvaluation [facility]* Diagnosis Acute pain of left knee- Primary documented in this encounter [facility]* Diagnosis Acute pain of left knee- Primary documented in this [facility]* Diagnosis Acute pain of left knee- Primary documented in this encounter [facility]Evaluation [facility]* Diagnosis Degenerative tear of lateral meniscus, left documented in this encounter [facility]* Diagnosis Left knee pain, unspecified chronicity- Primary [facility]* Diagnosis Left knee pain, unspecified chronicity documented [facility] encounter [facility]* Diagnosis Adult wellness visit- Primary Blood tests for routine general physical examination Laboratory examination ordered as part of a routine general medical examination Screening for diabetes mellitus documented in this encounter [facility] SystemHistory general Narrative - Reported* Type Description Date Medical History hypokalemia Medical HistoryhyperlipidemiaMedical HistoryHypothyroidismMedical Historybladder troubleMedical HistorycancerMedical Historyinsulin resistanceMedical History prediabetesMedical Historykidney stonesSurgical HistorytonsillectomySurgical Historybilateral mastectomySurgical Historythyroidectomy, subtotalSurgical Historyknee surgery leftHospitalization HistorySee Above [facility] Other History general Narrative - ReportedNoExcela [facility] [employer] Other Hospital course Narrative No data available for this section [facility] Hospital Discharge instructions No data available for this section [facility] Additional Instructions DISCHARGE INSTRUCTIONS [...] in an emergency, call the office at [[phone]]. TODAY -Take it easy the rest of [...] FOLLOW UP -Please call the office at [phone] to arrange an [facility] Work Phone: Hospital Discharge instructions Additional Instructions [...] FOLLOW UP -[Please call the office at ([phone]) to make follow appointment before leaving the hospital]. -[2 Weeks] [ ][facility] Work Phone: Instructions* Attachments The following attachments cannot be sent through Care Everywhere. * Depression (Ugandan) documented in this encounterProAdena Health System SystemInstructions* Attachments The following attachments cannot be sent through Care Everywhere. * Yearly Physical for Adults (Ugandan) documented in this encounterProAdena Health System SystemInstructionsNot on file documented in this encounterProMedica Memorial Hospital SystemInstructionsNot on file documented in this encounterProAdena Health System SystemInstructionsNot on file documented in this encounterProMedica Memorial Hospital SystemInstructionsNot on file documented in this encounterProMedica Memorial Hospital SystemProgress note No data available for this section [facility] reason for referral (narrative)No reason for referral information availableGeorgetown Behavioral Hospital Work Phone: Reason for visit Narrative* Rehabilitation - Outpatient (Routine) - AuthorizedSpecialtyDiagnoses / ProceduresReferred By ContactReferred To ContactPhysical Therapy Diagnoses Other meniscus derangements, unspecified lateral meniscus, left knee Procedures [place] PHYSICAL THERAPY EVALUATION LOW COMPLEX 20 MINS [place] OFFICE/OUTPATIENT [facility] 60 MINUTES Franco Whitmore MD [address] [place] [address] Phone: tel: fax: Lucila Rausch, PT [address] [place] [address] Phone: tel: fax: Referral IDStatusReasonStart DateExpiration DateVisits RequestedVisits [id number]/12/202512/ [facility] HealthcareReason for visit Narrative* Rehabilitation - Outpatient (Routine) - AuthorizedSpecialtyDiagnoses / ProceduresReferred By ContactReferred To ContactPhysical Therapy Diagnoses Other meniscus derangements, unspecified lateral meniscus, left knee Procedures [place] PHYSICAL THERAPY EVALUATION LOW COMPLEX 20 MINS [place] OFFICE/OUTPATIENT [facility] MDM 60 MINUTES Franco Whitmore MD [address] [place] [address] Phone: tel: fax: Lucila Rausch, PT [address] [place] [address] Phone: tel: fax: Referral IDStatusReasonStart DateExpiration DateVisits RequestedVisits [id number] [facility] Healthcare Assessments No Assessments Information Available Chief Complaint and Reason for Visit Chief Complaint Postmenopausal Bleed ing, Thickened Endometrium Chief Complaint Obesity Menorrhagia, Enlarged Fibroid Uterus Chief Complaint Wmn F/U Obesity Menorrhagia, Enlarged Fibroid Uterus Menorrhagia, Enlarged Fibroid Uterus. Chief Complaint Wmn F/U Obesity Menorrhagia, Enlarged Fibroid Uterus Menorrhagia, Enlarged Fibroid Uterus. WMN f/uReason for VisitBMI 28.0-28.9,adult Hyperlipemia Hypothyroidism Obesity Prediabetes Vitamin D [...] Complaint WMN f/u 6 week f/u WMN f/uReason for VisitBMI 29.0-29.9,adult Family history of diabetes mellitus (DM) Hyperlipemia Hypothyroidism Obesity Prediabetes Vitamin B 12 deficiency Vitamin D deficiency BMI 29.0-29.9,adult Family history of diabetes mellitus (DM) Hyperlipemia Hypothyroidism Obesity Prediabetes Vitamin B 12 deficiency Vitamin D deficiency Chief Complaint 6 week f/u WMN f/u WMN f/uReason for VisitBMI 29.0-29.9,adult Family history of diabetes mellitus (DM) [...] 3:22pm Vitamin B 12 deficiency May 02, 2 024 3:22pm Vitamin D deficiency May 02, 2024 3:22pm Chief Complaint Admit Date WMN f/u June 10, 2024 1:50pm 8 week-WMN f/u August 06, 2024 3:06pm Reason for Visit Admit Date BMI 29.0-29.9,adult June 10, 2024 1:50pm Family history of diabetes mellitus (DM) June 10, 2024 1:50pm Hyperlipemia June 10, 2024 1:50pm Hypothyroidism June 10, 2024 1:50pm Obesity June 10, 2024 1:50pm Prediabetes June 10, 2024 1:50pm Vitamin B 12 deficiency June 10, 2 024 1:50pm Vitamin D deficiency June 10, 2024 1:50pm BMI 29.0-29.9,adult August 06, 2024 3:06pm Family history of diabetes mellitus (DM) August 06, 2024 3:06pm Hyperlipemia August 06, 2024 3:06pm Hypothyroidism August 06, 2024 3:06pm Obesity August 06, 2024 3:06pm Prediabetes August 06, 2024 3:06pm Vitamin B 12 deficiency August 06, 2 025 3:06pm Vitamin D deficiency August 06, 2024 3:06pm Chief Complaint Admit Date 8 week-WMN f/u August 06, 2024 3:06pm WMN f/u October 08, 2024 3:1 7pm Reason for Visit Admit Date BMI 29.0-29.9,adult August 06, 2024 3:06pm Family history of diabetes mellitus (DM) August 06, 2024 3:06pm Hyperlipemia August 06, 2024 3:06pm Hypothyroidism August 06, 2024 3:06pm Obesity August 06, 2024 3:06pm Prediabetes August 06, 2024 3:06pm Vitamin B 12 deficiency August 06, 2 025 3:06pm Vitamin D deficiency August 06, 2024 3:06pm BMI 29.0-29.9,adult October 08, 2024 3:1 7pm Family history of diabetes mellitus (DM) October 08, 2024 3:17pm Hyperlipemia October 08, 2024 3:1 7pm Hypothyroidism October 08, 2024 3:1 7pm Obesity October 08, 2024 3:1 7pm Prediabetes October 08, 2024 3:1 7pm Vitamin B 12 deficiency October 08, 2024 3:17pm Vitamin D deficiency October 08, 2024 3: 17pm Chief Complaint Admit Date 6-8 week-WMN f/u December 03, 2024 3:34 pm 8 week January 30, 2025 3: 01pm Reason for Visit Admit Date BMI 29.0-29.9,adult December 03, 2024 3:34 pm Family history of diabetes mellitus (DM) December 03, 2024 3:34pm Hyperlipemia December 03, 2024 3:34 pm Hypothyroidism December 03, 2024 3:34 pm Obesity December 03, 2024 3:34 pm Prediabetes December 03, 2024 3:34 pm Vitamin B 12 deficiency December 03, 2024 3:34pm Vitamin D deficiency December 03, 2024 3:3 4pm BMI 29.0-29.9,adult January 30, 2025 3: 01pm Family history of diabetes mellitus (DM) January 30, 2025 3:01pm Hyperlipemia January 30, 2025 3: 01pm Hypothyroidism January 30, 2025 3: 01pm Obesity January 30, 2025 3: 01pm Prediabetes January 30, 2025 3: 01pm Vitamin B 12 deficiency January 30 3:01pm Vitamin D deficiency January 30, 2025 3 :01pm Chief Complaint Admit Date 8 week January [...] Vitamin D deficiency April 17, 2025 3:18pm Advance Directives Advance Directive Response Recorded Date/ Time Advance Directives No April 13, 2017 12:07pm Advance Directive Response Recorded Date/ Time Advance Directives No April 13, 2017 1:07pm Summary Purpose Family History Relationship Condition Age at Onset Recorded Date/T katlyn father Malignant neoplasm of prostate Unknown History of heart surgeryUnknownHistory of heart valve replacementUnknownNot SpecifiedMyasthenia gravisUnknownNo Family History Records Found Additional Source Comments Patient Care team informatio n (unrecognized section and content) Team Status: Active Member Role Status Dates Musa Evangelista DO Primary Care Provider Active Team Status: Active Member Role Status Dates Musa Evangelista DO Primary Care Provider Active Start: May 15, 2024 Marguerite Chowdary ProviderActiveStart: May 15, 2024 Team Status: Inactive Member Role Status Dates Musa Evangelista DO Primary Care Provider Active Start: June 10, 2024 End: June 10Marguerite Cloud ProviderActiveStart: June 10, 2024 End: June 10, 2024 Team Status: Inactive Member Role Status Dates Musa Evangelista DO Primary Care Provider Active Start: August 06, 2024 End: August 06, 2024Marguerite Chowdary ProviderActiveStart: August 06, 2024 End: August 06, 2024 Team Status: Inactive Member Role Status Dates Viktoria Birmingham APRN Attending Provider Active Start: April 17, 2023 End: April 17, 2023 Team Status: Inactive Member Role Status Dates Viktoria Birmingham APRN Attending Provider Active Start: June 13, 2023 End: June 13, 2023 Team Status: Active Member Role Status Dates Musa Evangelista DO Primary Care Provider Active Start: June 13, 2023 Viktoria C Scally , APRNAttending ProviderActiveStart: June 13, 2023 Team Status: Inactive Member Role Status Dates Musa Evangelista DO Primary Care Provider Active Start: June 22, 2023 End: June 22ichard Visci , DOAttending ProviderActiveStart: June 22, 2023 End: June 22, 2023 Team Status: Inactive Member Role Status Dates Musa Evangelista DO Primary Care Provider Active Start: July 07, 2023 End: July 07ichard Visci , DOAttending ProviderActiveStart: July 07, 2023 End: July 07, 2023 Team Status: Inactive Member Role Status Dates Musa Evangelista DO Primary Care Provider Active Tsering Velez MDAttending ProviderActive Team Status: Active Member Role Status Dates Musa Evangelista DO Primary Care Provider Active Viktoria C Scally , APRNAttending ProviderActive Team Status: Inactive Member Role Status Dates Musa Evangelista DO Primary Care Provider Active Chava Sebastien , DOAttending ProviderActive Team Status: Inactive Member Role Status Dates Musa Evangelista DO Primary Care Provider Active Start: August 08, 2023 End: August 08eborah C Scally , APRNAttending ProviderActiveStart: August 08, 2023 End: August 08, 2023 Team Status: Inactive Member Role Status Dates Musa Evangelista DO Primary Care Provider Active Start: October 10, 2023 End: October 09eborah C Scally , APRNAttending ProviderActiveStart: October 10, 2023 End: October 10, 2023 Team Status: Inactive Member Role Status Dates Musa Evangelista DO Primary Care Provider Active Start: November 21, 2023 End: November 20eborah C Scally , APRNAttending ProviderActiveStart: November 21, 2023 End: November 21, 2023 Team Status: Inactive Member Role Status Rylee Evangelista DO Primary Care Provider Active Start: January 11, 2024 End: January 10eborah C Scally , APRNAttending ProviderActiveStart: January 11, 2024 End: January 11, 2024 Team Status: Inactive Member Role Status Dates Musa Evangelista DO Primary Care Provider Active Start: March 07, 2024 End: March 07Marguerite Cloud ProviderActiveStart: March 07, 2024 End: March 07, 2024 Team Status: Inactive Member Role Status Dates Musa Evangelista DO Primary Care Provider Active Start: May 02, 2024 End: May 02Marguerite Cloud ProviderActiveStart: May 02, 2024 End: May 02, 2024Team MemberRelationshipSpecialtyStart DateEnd Date Henok Dumont APRN-DEVELOPMENT TECHNOLOGIST [address] [place] [address] [facility] - [facility]11/29/23Team MemberRelationshipSpecialtyStart DateEnd Date Henok Dumont DIE PRESSER-DEVELOPMENT TECHNOLOGIST [address] [place] [address] P[facility] - [facility]11/29/23Team MemberRelationshipSpecialtyStart DateEnd Date Unallocated, Noms MD [address] [place] [address] PCP - Uyddxvr59/10/23 Tsering Velez MD [address] [place] [address] Obstetrics and Gynecology03/08/23Team MemberRelationshipSpecialtyStart DateEnd Date Henok Dumont DIE PRESSER-DEVELOPMENT TECHNOLOGIST [address] [place] [address] P[facility] - [facility]11/29/23 Team Status: Active Member Role Status Dates Henok Dumont DENTAL LABORATORY SUPERVISOR-C Primary Care Provider Active Team Status: Inactive Member Role Status Dates Viktoria Birmingham APRN Attending Provider Active Start: October 08, 2024 End: October 08, 2024ANGEL [facility] Care ProviderActiveStart: October 08, 2024 End: October 08, 2024Team MemberRelationshipSpecialtyStart DateEnd Date Henok Dumont APRN-DEVELOPMENT TECHNOLOGIST [address] [place] [address] [facility]/29/23Team MemberRelationshipSpecialtyStart DateEnd Date Unallocated, Loretta ProviderMD [facility] [place] [address] PCP - Nwivsgx26/10/23 Tsering Velez MD [address] [place] [address] Obstetrics and Gynecology03/08/23Team MemberRelationshipSpecialtyStart DateEnd Date Unallocated, Loretta ProviderMD [address] [place], [place] [address] [place] [address] [facility] - Laytoyn40/10/23 Tsering Velez MD [address] [place] [address] Obstetrics and Gynecology03/08/23Team MemberRelationshipSpecialtyStart DateEnd Date Unallocated, Loretta Vinson MD [facility] [place] [address] [facility] - Fekyyey34/10/23 Tsering Velez MD [address] [place] [address] Obstetrics and Gynecology03/08/23Te MemberRelationshipSpecialtyStart DateEnd Date Unallocated, Loretta Vinson MD [address] [place] [address] PCP - Mgypfvg13/10/23 Tsering Velez MD [address] [place] [address] Obstetrics and Gynecology03/08/23Te MemberRelationshipSpecialtyStart DateEnd Date Unallocated, Loretta Vinson MD [address] [place] [address] [facility] - Fmrzyle28/10/23 Tsering Velez MD [address] [place] [address] Obstetrics and Gynecology03/08/23Te MemberRelationshipSpecialtyStart DateEnd Date Unallocated, Loretta Vinson MD [address] [place] [address] PCP - Zaaexdc07/10/23 Tsering Velez MD [address] [place] [address] Obstetrics and Gynecology03/08/23Te MemberRelationshipSpecialtyStart DateEnd Date Unallocated, Loretta Vinson MD [address] [place] [address] PCP - Xltxmkh73/10/23 Tsering Velez MD [address] [place] [address] Obstetrics and Gynecology03/08/23Te MemberRelationshipSpecialtyStart DateEnd Date Unallocated, Loretta Vinson MD [address] [facility] [place] [address] PCP - Nbupnuc30/10/23 Tsering Velez MD [address] [place] [address] Obstetrics and Gynecology03/08/23 Team Status: Inactive Member Role Status Dates JAM Porras Primary Care Provider Active Start: December 03, 2024 End: December 03, 2024Viktoria Birmingham APRNAttenphil ProviderActiveStart: December 03, 2024 End: December 03, 2024 Team Status: Inactive Member Role Status Dates JAM Porrsa Primary Care Provider Active Start: January 30, 2025 End: January 30, 2025Dematt Birmingham APRNAttending ProviderActiveStart: January 30, 2025 End: January 30, 2025Team MemberRelationshipSpecialtyStart DateEnd Date Logan Lombardi, DIE PRESSER-DEVELOPMENT TECHNOLOGIST [address] [place] [address] [facility] - [facility]01/20/25Team MemberRelationshipSpecialtyStart Date End Date Unallocated, Loretta Vinson MD [address] [facility] [place] [address] PCP - Gltbclo76/10/23 Tsering Velez MD [address] [place] [address] Obstetrics and Gynecology03/08/23Team MemberRelationshipSpecialtyStart DateEnd Date Unallocated, Loretta Vinson MD [address] [facility] [place] [address] PCP - Evilyqo07/10/23 Tsering Velez MD [address] [place] [address] Obstetrics and Gynecology03/08/23Team MemberRelationshipSpecialtyStart DateEnd Date Maria C Logan Joy, DIE PRESSER-DEVELOPMENT TECHNOLOGIST [address] [place] [address] PCP - GeneralInternal Medicine01/20/25 Team Status: Active Member Role/Relationship Status Dates JAM Porras Primary Care Provider Active Team Status: Inactive Member Role/Relationship Status Dates JAM Porras Primary Care Provider Active Start: January 30, 2025 End: January 30, 2025Viktoria Birmingham APRNAttenphil ProviderActiveStart: January 30, 2025 End: January 30, 2025 Team Status: Inactive Member Role/Relationship Status Dates JAM Porras Primary Care Provider Active Start: April 17, 2025 End: April 17, 2025Dematt Birmingham , APRNAttending ProviderActiveStart: April 17, 2025 End: April 17, 2025 INFORMATION SOURCE (unrecogn ized section and content) DATE CREATED AUTHOR 11/25/2022 [facility] DATE CREATED AUTHOR AUTHOR'S ORGANIZ ATION 11/12/2023 [facility] DATE CREATED AUTHOR AUTHOR'S ORGANIZ ATION 11/18/2023 [facility] DATE CREATED AUTHOR AUTHOR'S ORGANIZ ATION 05/22/2024 [facility] DATE CREATED AUTHOR AUTHOR'S ORGANIZ ATION 05/29/2024 [facility] DATE CREATED AUTHOR AUTHOR'S ORGANIZ ATION 09/12/2024 [facility] DATE CREATED AUTHOR AUTHOR'S ORGANIZ ATION 11/26/2024 [facility] DATE CREATED AUTHOR AUTHOR'S ORGANIZ ATION 01/16/2025 [facility] DATE CREATED AUTHOR AUTHOR'S ORGANIZ ATION 03/24/2025 [facility] DATE CREATED AUTHOR AUTHOR'S ORGANIZ ATION 03/30/2025 [facility] REASON FOR VISIT (unrecogniz ed section and content) ReasonCommentsnew patientReasonCommentsAnnual ExamReasonCommentsGynecologic Exam ReasonCommentsMed RefillReasonCommentsKnee PainSwelling left knee, 3 weeks, shinglesReasonCommentsPainReasonCommentsAnnual Exam Goals (unrecognized section and content) Goals [...] BE BASED ON THE PRIMARY CLINICAL RECORDS. [facility] [employer] [facility]. provides no warranty or guarantee of the accuracy or completeness of information in this document.
--- OUTSIDE RECORDS SUMMARY | 2025-04-19 07:26 | XMS_ITS | Clinical Summary ---
Author Organization [employer]ible [employer] tem Address [id number] [address] [place] [address] Care Team Providers Care Director Ehs Name Role Phone Logan Lombardi DRIVERS LICENSE EXAMINER-CEMENTER MACHINE Primary Care Provider + Allergies Active AllergyReactionsCriticalityNoted FssgFbnqsutzXncdxuqzwygqng90/21/2025 Sulfa (Sulfonamide Antibiotics)Hives11/29/2023zithromycinDiarrhea,Vomiting 11/29/2023 Medications MedicationSigDispense QuantityRefillsLast FilledStart DateEnd DateStatus metFORMIN XR (GLUCOPHAGE XR) 500 mg 24 hr tablet Take 1 tablet (500 mg total) by mouth in the morning and 1 tablet (500 mg total) before bedtime. 2 tab 2x day .03/21/2023ctive oxybutynin XL (DITROPAN-XL) 10 mg 24 hr tablet Take 1 tablet (10 mg total) by mouth in the morning.10/11/2023ctive KLOR-CON/EF 25 mEq disintegrating tablet Active atorvastatin (LIPITOR) 10 mg tablet Indications:Mixed hyperlipidemiaTake 1 tablet (10 mg total) by mouth in the morning. 90 tablet ctive sertraline (ZOLOFT) 100 mg tablet Indications:Anxiety and depressionTake 1 tablet (100 mg total) by mouth in the morning. 90 tablet ctive levothyroxine (SYNTHROID, LEVOTHROID) 50 MCG tablet Indications:Postoperative hypothyroidismTAKE 1 TABLET BY MOUTH EVERY DAY IN THE MORNING 90 tablet 5Active phentermine (ADIPEX-P) 37.5 mg tablet Take 1 tablet (37.5 mg total) by mouth.5Active CEPHalexin (KEFLEX) 250 mg capsule TAKE 1 CAPSULE BY MOUTH ON MON, WED, AND FRIActive meloxicam (MOBIC) 15 mg tablet Indications:Degenerative tear of lateral meniscus, leftTAKE 1 TABLET (15 MG TOTAL) BY MOUTH IN THE MORNING 30 tablet 51Discontinued meloxicam (MOBIC) 15 mg tablet Indications:Degenerative tear of lateral meniscus, leftTAKE 1 TABLET (15 MG TOTAL) BY MOUTH IN THE MORNING 30 tablet 51Discontinued(Therapy completed) Active Problems No known active problems Encounters DateTypeDepartmentCare NknxKigmgwruwqc85/21/2025 3:20 PM EDTOffice Visit [facility] [address] [place] [address] Logan Lombardi APRN-TEJAL Adult wellness visit (Primary Dx); Blood tests for routine general physical examination; Screening for diabetes qugogqku99/21/0722Vutfkf35/15/2025Refill [facility] [address] [place] [address] Logan Lombardi, [place]-CEMENTER MACHINE Degenerative tear of lateral meniscus, left03/13/2025Orders Only [facility] [address] [place] [address] Ref Prov, Not In System 03/04/2025Refill [facility] [address] [place] [address] Ramirez Hernández, DO Degenerative tear of lateral meniscus, left02/04/2025Refill [facility] [address] [place] [address] Ramirez Hernández, DO Degenerative tear of lateral meniscus, left01/30/2025Travelfrom Last 3 Months Immunizations ImmunizationAdministration DatesNext DueInfluenza, Injectable, Quadrivalent 03/19/2019Influenza, Injectable, quadrivalent (PF)03/04/2020 Family History Medical HistoryRelationNameCommentsCongenital heart diseaseFatherDementiaFather Prostate cancerFatherAutoimmune diseaseMotherRelationNameStatusCommentsBrother 1 AliveBrother 2AliveFatherAliveMotherAliveSonAlive Social History Tobacco UseTypesPacks/DayYears UsedDateSmoking Tobacco: NeverSmokeless Tobacco: Never Tobacco Cessation:Counseling Given: Not Answered Alcohol UseStandard Drinks/WeekCommentsNot Currently0 (1 standard drink = 0.6 oz pure alcohol)rarePHQ-2AnswerDate RecordedTotal Djdtc247UDIT-CAnswerDate RecordedQ1: How often do you have a drink containing alcohol?Monthly or less 04/08/2025Q2: How many drinks containing alcohol do you have on a typical day when you are drinking?1 or Q3: How often do you have six or more drinks on one occasion?Less than unufmas2804/08/2025Hunger ScreeningAnswerDate RecordedWithin the past 12 months we worried whether our food would run out before we got money to buy more.Never True04/08/2025Within the past 12 months the food we bought just didn't last and we didn't have money to get more.Never True04/08/2025CommentsUnknownSex and Gender InformationValueDate RecordedSex Assigned at BirthNot on fileLegal UrhMnvvuc22/31/2024 9:22 AM EDT Gender IdentityNot on fileSexual OrientationNot on file Last Filed Vital Signs Vital SignReadingTime TakenCommentsBlood Rsjfokoj234/6004/08/2025 3:44 PM EDT Euilv161304/08/2025 3:44 PM AAXMwbldwkoovx21.6 ??C (97.8 ??F)04/08/2025 3:44 PM EDTRespiratory Fchv3675 3:44 PM EDTOxygen Duntfgoxgd92%04/08/2025 3:44 PM EDTInhaled Oxygen Concentration--Kqabwt68.7 kg (175 lb 12.8 oz)04/08/2025 3:44 PM QOUWoqdrm688.7 cm (5' 7.99 )04/08/2025 3:44 PM EDTBody Mass Index26.74 04/08/2025 3:44 PM EDT Plan of Treatment DateTypeDepartmentCare Team (Latest Contact Info)Xmtupghznin34/13/2026 3:00 PM EDTOffice Visit [facility] [address] [place] [address] Logan Lombardi, DRIVERS LICENSE EXAMINER-CEMENTER MACHINE [address] [place] [address] Health MaintenanceDue DateLast DoneCommentsDTaP,Tdap and Td Vaccines (1 - Tdap) 1993Pap Smear1995Zoster (Shingles) Vaccine (1 of 2)4COVID- 19 Vaccine (3 - 2024- season)504/, 09/17/2020Influenza Vaccine /, 02/19/2020, 03/19/2019Adult BMI Follow Up Plan04/04/2025 04/04/2024dult BMI Aaxhelzwf31Depression Oqiozbjhw30/21/2026 04/08/2025Tobacco Spwlnsyvq62 Medical Devices Not on file Procedures Procedure NamePriorityDate/TimeAssociated DiagnosisCommentsPOCT HEMOGLOBIN A1C Qzqrzfh7404/08/2025 3:58 PM EDT Screening for diabetes mellitus XR ABDOMEN AP 1 PUVznbkki04/25/2025 8:45 AM EDTfrom Last 3 Months Results * POCT Hemoglobin A1c (04/08/2025 3:58 PM EDT)ComponentValueRef RangeTest Method Analysis TimePerformed AtPathologist SignatureExternal Poct Hgb A1C5.94 - 7 % MANUALLY TRANSCRIBED RESULTSSpecimen (Source)Anatomical Location / Laterality Collection Method / VolumeCollection TimeReceived DqgwHmkmi68/21/2025 3:58 PM EDT Narrative Authorizing ProviderResult TypeResult StatusLogan Lombardi DRIVERS LICENSE EXAMINER-CNPPOINT OF CARE TEST ORDERABLESFinal ResultPerforming OrganizationAddressCity/State/ZIP Code Phone Number MANUALLY TRANSCRIBED RESULTS * X-ray abdomen ap 1 view (03/13/2025 8:45 AM EDT)Anatomical RegionLaterality ModalityBody, AbdomenN/AComputed Radiography Narrative Authorizing ProviderResult TypeResult StatusNot In System Ref ProvIMG DIAGNOSTIC IMAGING ORDERABLESFinal Result from Last 3 Months Insurance Care Teams Team MemberRelationshipSpecialtyStart DateEnd Date Logan Lombardi, DRIVERS LICENSE EXAMINER-CEMENTER MACHINE [address] [place] [address] PCP - GeneralInternal Medicine01/20/25
--- OUTSIDE RECORDS SUMMARY | 2025-04-19 07:26 | XMS_ITS | Encounter Summary ---
Author Organization [employer] tem Address [id number] [place] [address] Care Team Providers Care Upholstery Trimmer Name Role Phone Logan Lombardi SENIOR UI DEVELOPER-SALES REPRESENTATIVE W[employer]OPE Primary Care Provider + Encounter Details DateTypeDepartmentCare Team (Latest Contact Info)Kxbnnytmrzi64/21/2025Travel Social History Tobacco UseTypesPacks/DayYears UsedDateSmoking Tobacco: NeverSmokeless Tobacco: NeverAlcohol UseStandard Drinks/WeekCommentsNot Currently0 (1 standard drink = 0.6 oz pure alcohol)rarePHQ-2AnswerDate RecordedTotal Xqwax621UDIT-C AnswerDate RecordedQ1: How often do you have a drink containing alcohol?Monthly or less04/08/2025Q2: How many drinks containing alcohol do you have on a typical day when you are drinking?1 or Q3: How often do you have six or more drinks on one occasion?Less than xwabpto2504/08/2025Hunger ScreeningAnswerDate RecordedWithin the past 12 months we worried whether our food would run out before we got money to buy more.Never True04/08/2025Within the past 12 months the food we bought just didn't last and we didn't have money to get more.Never True04/08/2025CommentsUnknownSex and Gender InformationValueDate RecordedSex Assigned at BirthNot on fileLegal LcdUcsdej35/31/2024 9:22 AM EDT Gender IdentityNot on fileSexual OrientationNot on filedocumented as of this encounter Functional Status * AUDIT-C ScoreAnswerDate of FbuttjmyabNvvpsn434/21/2025 3:44 PM Manjula Jane CMA * QuestionAnswerDate of AssessmentAuthorQ1: How often do you have a drink containing alcohol?Monthly or less04/08/2025 3:44 PM Manjula Jane CMA Q2: How many drinks containing alcohol do you have on a typical day when you are drinking?1 or 3:44 PM Manjula Jane CMAQ3: How often do you have six or more drinks on one occasion?Less than jptjujk1804/08/2025 3:44 PM Manjula Jane CMA documented as of this encounter Plan of Treatment DateTypeDepartmentCare Team (Latest Contact Info)Insmmgqbkjf75/13/2026 3:00 PM EDTOffice Visit [facility] [address] [place] [address] Logan Lombardi, SENIOR UI DEVELOPER-SALES REPRESENTATIVE W[employer] [address], [place] [address] documented as of this encounter Visit Diagnoses Not on filedocumented in this encounter Additional Health Concerns AssessmentNoted TimePHQ-9 Depression Total Score: 3:43 PM EDTA Body Mass Index follow-up plan has been documented for the xxtoyov9404/04/2024 3:59 PM EDTdocumented as of this encounter Care Teams Team MemberRelationshipSpecialtyStart DateEnd Date Logan Lombardi, SENIOR UI DEVELOPER-SALES REPRESENTATIVE W[employer]OPE [address] [place] [address] PCP - GeneralInternal Medicine01/20/25documented as of this encounter
--- OUTSIDE RECORDS SUMMARY | 2025-04-19 07:26 | XMS_ITS | Clinical Summary ---
Author Organization [facility] Address [address] [place] [address] Care Team Providers Care Community Program Assistant Name Role Phone Tsering Rodriguez MD Unavailable [phone] Unallocated, Noms Provider MD Primary Care Provi renetta Allergies Active AllergyReactionsCriticalityNoted DateCommentsAzithromycinUnknown 03/08/2023Sulfa Wvexwgbohqs47/20/4228JpqdaqmemfdjyIcejlzz88/20/2023 Medications MedicationSigDispense QuantityRefillsLast FilledStart DateEnd DateStatus sertraline (Zoloft) 100 MG tablet Take 100 mg by mouth DailyActive atorvastatin (Lipitor) 10 MG tablet Take 10 mg by mouth DailyActive levothyroxine (Synthroid, Levoxyl) 50 MCG tablet Take 50 mcg by mouth in the morning. Take on an empty stomach.03/21/2023ctive oxybutynin XL (Ditropan-XL) 10 MG 24 hr tablet Take 10 mg by mouth Daily03/11/2023ctive metFORMIN XR (Glucophage-XR) 500 MG 24 hr tablet 03/21/2023ctive Klor-Con/EF 25 MEQ effervescent tablet Take 25 mEq by mouth in the morning and 25 mEq before bedtime.04/22/2023ctive cephalexin (Keflex) 250 MG capsule 5Active meloxicam (Mobic) 15 MG tablet TAKE 1 TABLET (15 MG TOTAL) BY MOUTH IN THE ROCKMKT9901/08/2025tive ciprofloxacin (Cipro) 500 MG tablet 5Active phentermine (Adipex-P) 37.5 MG tablet Take 37.5 mg by mouth Daily5Active Active Problems No known active problems Encounters DateTypeDepartmentCare LhejCpoifmerkxt34/30/2025 3:15 PM EDTOffice Visit [facility] [address] [place] [phone] Dontrlel Aung Diaz, Left knee pain, unspecified ohpgqcfsoc11/30/2025amboo flowsheet [facility] [address] [place] [address] DontrellAung, 03/18/2025Travelfrom Last 3 Months Family History Medical HistoryRelationNameCommentsProstate cancerFatherProstate cancerFather's BrotherRelationNameStatusCommentsFatherAliveFather's BrotherMotherAlive Social History Tobacco UseTypesPacks/DayYears UsedDateSmoking Tobacco: FormerCigarettes Smokeless Tobacco: Never Tobacco Cessation:Counseling Given: Not Answered Alcohol UseStandard Drinks/WeekCommentsYes0 (1 standard drink = 0.6 oz pure alcohol)Caffeine Intake: 1-2 cups of coffee per dayAUDIT-CAnswerDate RecordedQ1: How often do you have a drink containing alcohol?Monthly or less08/12/2024Q2: How many drinks containing alcohol do you have on a typical day when you are drinking?1 or Q3: How often do you have six or more drinks on one occasion?Less than mnqysiz8808/12/2024PHQ-2AnswerDate RecordedPatient Health Questionnaire-2 Zadul240CommentsNoSex and Gender Information ValueDate RecordedSex Assigned at NmrdiZtjhit73/19/2023 6:23 PM EDTLegal Sex Ydlkiz3708/31/2022 7:14 PM EDTGender MvcprwteFwmvfr22/19/2023 6:23 PM EDTSexual QwqczbvvabeQitfwrwl28/19/2023 6:23 PM EDT Last Filed Vital Signs Vital SignReadingTime TakenCommentsBlood Mvbppxbe315/7002 3:22 PM EST Imedx5278 9:33 AM EDTTemperature--Respiratory Nfcb8782/ 9:33 AM EDTOxygen Wegaqrdfsz09%01/07/2022 9:33 AM EDTInhaled Oxygen Concentration-- Vssgkp05.8 kg (176 lb)03/18/2025 3:19 PM CCGCpivry130.2 cm (5' 7 )03/18/2025 3:19 PM EDTBody Mass Index27.57003/18/2025 3:19 PM EDT Plan of Treatment DateTypeDepartmentCare Team (Latest Contact Info)Hujueidvajb81/03/2026 3:15 PM ESTOffice Visit [facility] [address] [place] [phone] Tsering Rodriguez MD [address] [place] [address] Health MaintenanceDue DateLast DoneCommentsCT Xkwfuezlgurs1974FIT-DNA 1974FIT1974FOBT1974 4189Eyqclbegtaogz1974Influenza Vaccine (#1)504/, 03/04/2020, 02/19/2020, Additional history exists Usvxzuaddyd54/21/203203/2Colorectal Cancer Clhrqbpnl64/21/2032Cervical Cancer ScreeningDiscontinuedHPV/QdulwbCtlbxvglsuhn60/24/2025, 02/18/2021, 01/29/2020Pap SmearDiscontinued Procedures Procedure NamePriorityDate/TimeAssociated DiagnosisCommentsPR ARTHROCENTESIS ASPIR&/INJ MAJOR JT/BURSA W/O FQTknfgsn83/30/2025 4:03 PM EDT Left knee pain, unspecified chronicity IGP, APT HPV,RFX 16/18,67Qajiyaa29/24/2025 12:00 AM EST Encounter for gynecological examination without abnormal finding Encounter for screening for cervical cancer from Last 3 Months or Most Recently Relevant to Health Maintenance Results * SD ARTHROCENTESIS ASPIR&/INJ MAJOR JT/BURSA W/O US (03/18/2025 4:03 PM EDT) Narrative Jennie Bender, ARRT - 03/18/2025 4:03 PM EDT Jennie Bender, ARRT 03/23/2025 8:47 PM L Inj/Asp: L knee on 03/18/2025 4:03 PM Indications: pain Details: 25 G needle, lateral approach Medications: 1.5 mL betamethasone acetate-betamethasone sodium phosphate 6 (3-3) MG/ML Consent was given by the patient. Authorizing ProviderResult TypeResult StatusJason Emily [facility] CL[facility]IC/BEDSIDE ORDERABLESFinal Result * IGP, APT HPV,RFX 16/18,45 (08/12/2024 12:00 AM EST)ComponentValueRef RangeTest MethodAnalysis TimePerformed AtPathologist SignatureDiagnosis:CommentLABCORP Comment:NEGATIVE FOR INTRAEPITHELIAL LESION OR MALIGNANCY.Specimen Adequacy: CommentLABCORPComment:Satisfactory for evaluation. No endocervical component is identified.Clinician Provided ICD10:CommentLABCORPComment: Z01.419 Z12.4 Performed By:CommentLABCORPComment:Jennie Covarrubias, Customs And Immigration Officer (ASCP) Cyto Comments.LABCORPNote:CommentLABCORPComment: The Pap smear is a screening test designed to aid in the detection of premalignant and malignant conditions of the uterine cervix. ??It is not a diagnostic procedure and should not be used as the sole means of detecting cervical cancer. ??Both false-positive and false-negative reports do occur. Test Methodology:CommentLABCORPComment: This liquid based ThinPrep(R) pap test was screened with the use of an image guided system. HPV AptimaNegativeNegativeLABCORPComment: This nucleic acid amplification test detects fourteen high-risk HPV types (16,18,31,33,35,39,45,51,52,56,58,59,66,68) without differentiation. Specimen (Source)Anatomical Location / LateralityCollection Method / Volume Collection TimeReceived TimeVaginal Fluid/ Narrative [facility] - 08/14/2024 3:07 PM EST Performed at: 01 - [facility] ??[id number] Personal Lines Insurance Agent: Shereen Irvin MD, Phone: ??[phone] Performed at: ??02 - [facility] [address] [place] [place], [place] ??[id number] [employer] Insurance Agent: Shereen Irvin MD, Phone: ??[phone] Specimen Comment: No. of containers..01 ThinPrep Vial Authorizing ProviderResult TypeResult StatusTsering Rodriguez MDLAB BLOOD ORDERABLESFinal ResultPerforming OrganizationAddressCity/State/ZIP CodePhone Number [facility] from Last 3 Months or Most Recently Relevant to Health Maintenance Insurance Care Teams Team MemberRelationshipSpecialtyStart DateEnd Date Unallocated, Noms Provider, [address] [place] [address] PCP - Nofavom46/10/23 Tsering Rodriguez MD [address] [place] [address] Obstetrics and Gynecology03/08/23
[2025-04-19 08:08] LABS: Hematocrit 45.7 % (36.0-48.0); Hemoglobin 14.9 g/dL (12.0-16.0); Immature Granulocytes Abs Auto 0.02 10^3/uL (0.00-0.03); Immature Granulocytes Pct Auto 0.3 % (0.0-0.5); Lymphocytes Absolute Auto 1.9 10^3/uL (1.2-3.8); Mean Corpuscular HGB Conc 32.6 g/dL (29.9-35.2); Mean Corpuscular Hemoglobin 30.5 pg (26.7-34.0); Mean Corpuscular Volume 93.5 fL (81.0-99.0); Platelet Count 300 10^3/uL (150-450); Red Blood Count 4.89 10^6/uL (4.20-5.40); White Blood Count 7.3 10^3/uL (4.0-11.0)
[2025-04-19 08:28] LABS: Thyroid Stimulating Hormone 2.469 uIU/mL (0.358-3.740)
== END 2025-04-19 07:22 | disposition home or self-care (01) ==
LOC: LAB 07:22
PROVIDERS: PCP Nurse Practitioner Family; Visit Provider Nurse Practitioner Family
DX: Z00.00 Encounter for general adult medical examination without abnormal findings (principal)
CPT/HCPCS: 36415; 84439; 84443; 85025

== ENCOUNTER 2025-04-19 07:25 | Outpatient (OUT) | payer OTHER, SELFPAY ==
--- OUTSIDE RECORDS SUMMARY | 2025-04-19 07:30 | XMS_ITS | CCD ---
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 Role Phone MUSA EVANGELISTA Primary Care Physician [phone] DO Musa Evangelista Primary Care Provider MD Tsering Velez Attending Provider [phone] VIKTORIA BIRMINGHAM Admitting Unavailable JEAN CARLOS, DR [...] DR VIGIL Primary Care Unavailable AGUSTIN, DR SNADERS Attending Unavailable AGUSTIN, DR SANDERS Admitting Unavailable [...] Care Unavailable Marshall ESPARZA Attending Unavailable Marshall ESPARZA Attending Unavailable BERNADETTE HAYES Attending Unavailab Marshall [...] Unavailable HENOK DUMONT Primary Care Physician Tim SAFETY CLOTHING AND EQUIPMENT DEVELOPER-Henok TOURE Primary Care Provid er Tsering Velez MD Unavailable [phone] Unallocated , Suzans Provider Primary Care Provi renetta Indira Lua Attending Unavailable Tim SAFETY CLOTHING AND EQUIPMENT DEVELOPER-Henok TOURE Primary Care Provid er HENOK DUMONT Primary Care Unavailable Marshall ESPARZA Attending Unavailable JOSELYN HAYES Admitting Unavailable JOSELYN HAYES Attending Unavailable HENOK DUMONT Primary Care Unavailable HENOK DUMONT Primary Care Physician HENOK DUMONT Primary Care Unavailable Marshall ESPARZA Attending Unavailable Tim POT PUSHER-CHenok Primary Care Provider Viktoria [place] APRN Attending Provider Maria C HO-Logan TOURE Primary Care Provider TSERING VELEZ Attending Unavailable LUCILA RAUSCH Attending Unavailable FRANCO WHITMORE Referring Unavailable ANDRAEY, EJNNIE Attending Unavailable GARYSFRANCO L Referring Unavailable KELSHEYYJENNIE Attending Unavailable YUHASFRANCO L Referring Unavailable KELSHEYY, JENNIE Attending Unavailable YUHAS FRANCO L Referring Unavailable RUT CHANDLER Attending Unavailable YUHASFRANCO L Referring Unavailable LUCILA RAUSCH Attending Unavailable VALARIEHAS FRANCO L Referring Unavailable KELSHEYY, JENNIE Attending Unavailable GARYS FRANCO L Referring Unavailable AUNG DAY Referring Unavailable AUNG DAY Attending Unavailable AUNG DAY Attending Unavailable Tim POT PUSHER-CHenok Primary Care Provider Viktoria [place] APRN Attending Provider Unavailable Unavailable Unavailable Allergies Allergy ClassificationReported Allergen(s)Allergy TypeDate of OnsetReaction(s) Facility (20 sources)Azithromycin; Translations: [azithromycin]Drug Otppyph11-24-4137 Vomiting (disorder), Diarrhea (finding), Diarrhea, Vomiting, UnknownExecutive [facility] of [facility] (16 sources)Sulfamethoxazole; Translations: [sulfamethoxazole]Drug AllergyHives [facility] (20 sources)Sulfonamides (Antibiotic); Translations: [Sulfa (Sulfonamide Antibiotics)]Allergy to vccmtoskp45-05-5353[facility]vijrehvSy[facility] (5 sources)Azithromycin; Translations: [Zithromax]Drug AllergyThe [facility] (2 sources)Sulfonamides (Antibiotic)Drug allergy (disorder)[facility] (20 sources)Substance with sulfonamide structure and antibacterial mechanism of action (substance)Drug drohzdt30-85-1959inwviZFJL Healthcare (1 source)AzithromycinDrug Dsvjutt53-55-8619KxddybzdaAv[facility] System Rep[facility] (20 sources)SulfanilamideAllergy to -84-3478KlikxiaZCDT Healthcare (1 source)Cephalosporins (Antibiotic)Drug Afkxryt60-44-5084ElsIxynbe Health System Medications Current Medications MedicationDrug Class(es)DatesSig (Normalized)Sig (Original)0.5 ML semaglutide 0.5 MG/ML Auto-Injector [Wegovy] (6 sources)Start: 52-33-5211Cjfaq: 35-19-3914nwlbhi 0.5 mL by subcutaneous injection every weekWegovy 0.25 MG/0.5ML 0.5 mL Subcutaneous weekly for 30 days Dec, Activeinject 0.5 mL by subcutaneous injection every weekWegovy 0.25 MG/0.5ML 0.5 mL Subcutaneous weekly for 30 days NOT COVERED Activeatorvastatin 10 mg oral tablet (20 sources)HMG-CoA Reductase InhibitorStart: 07-29-2022 End: 52-25-9448phcs 1 tablet by mouth once daily in the morningAtorvastatin 10 mg tablet Active 10 MG PO Every morning July 29, 2022 1:00am Complies with drug therapyStart: 62-23-4930hnjkopvwrwtq Oral, Daily, Refills(s) 0 Start Date: 06/20/19 Status: Ordered Repeat number: 1Start: 72-11-4428yshaawdajlam Oral, Daily, Refills(s) 0 Start Date: 06/20/19 Status: OrderedCalcium (13 sources)Phosphate Binder, CalciumStart: 28-51-5023Qjkyszk 600+D Oral, BID, Refill(s) 0, Prophylaxis Start Date: 05/16/11 Status: Ordered Repeat number: 1 Start: 51-32-4713Eliagqt 600+D Oral, BID, Refill(s) 0, Prophylaxis Start Date: 05/16/11 Status: Orderedcalcium carbonate 1500 mg / cholecalciferol 200 unt oral tablet (13 sources)Vitamin DStart: 20-91-2588fltu 1 tablet by mouth once daily at bedtimeCalcium Carbonate-Vitamin D3 600 mg-5 mcg (200 unit) Tablet Active 1 TAB PO Daily at bedtime June 22, 2023 1:00am Complies with drug therapy cephalexin 250 mg oral capsule (20 sources)Cephalosporin AntibacterialStart: 06-04-2024 End: 94-43-5460Gffayh 250 mg Cap 250 mg = 1 cap(s), Oral, MonWedFri, # 39 cap(s), Refills(s) 3, Pharmacy: [facility]/pharmacy #[id number], 172, cm, 05/23/24 15:14:00 EST, Height/Length Dosing, 85, kg, 05/23/24 15:14:00 EST, Weight Dosing Start Date: 06/04/24 Stop Date: 05/27/25 Status: Ordered Quantity: 39.0 Unit: cap(s) Repeat number: 4Start: 11-07-2023 End: 94-38-8901dszw 1 capsule by mouth twice dailyKeflex 500 mg Cap 500 mg = 1 cap(s), Oral, BID, X 14 day(s), # 28 cap(s), Refills(s) 0, [id number], 172, cm, 11/07/23 15:26:00 EDT, Height/Length Dosing, 84, kg, 11/07/23 15:26:00 EDT,Weight Dosing Start Date: 11/07/23 Stop Date: 11/21/23 Status: Ordered Start: 11-07-2023 End: 07-40-1018vklothypwb (Keflex) 250 MG capsule 07/20/2024 ActiveStart: 06-22-2023 End: 77-55-3548wkau 1 capsule by mouth twice dailyCephalexin 500 mg capsule Discontinued 500 MG PO Twice daily June 22, 2023 4:54pm October 10, 2023 3:26pmStart: 34-21-3144faor 1 tablet by mouth twice daily, then take 1 tablet by mouth once dailycephalexin 500 mg oral tablet See Instructions, Take one tab, twice a day for 2 weeks, then take one tab daily for 1 month., # 58 tab(s), Refills(s) 0, Pharmacy: [facility] #[id number], 172, cm,06/20/23 15:54:00 EST, Height/Length Dosing, 84, kg, 06/20/23 15:54:00 EST, Weight Dosing Start Date: 06/20/23 Status: OrderedStart: 07-29-2022 End: 50-04-6304eopi 1 capsule by mouth every six hoursCephalexin 500 mg capsule Discontinued 500 MG PO Q6H 28 7 0 July 29, 2022 1:00am June 4:54pmciprofloxacin 500 mg oral tablet (11 sources)Quinolone AntimicrobialStart: 61-75-0926xphwvyicynnpk (Cipro) 500 MG tablet 01/13/2025 ActiveStart: 54-79-6643Yzkyi 500 mg Tab 500 mg = 1 tab(s), Oral, As Directed, Pt to take 1 tab the day before procedure and the 2nd tab the day of procedure once completed., # 2 tab(s), Refills(s) 0, Pharmacy: [facility] #[id number], 172, cm, 05/02/23 15:11:00 EST, Height/Length Dosing, 84, kg, 05/02/23 15:11:00 EST, Weight Dosing Start Date: 05/02/23 Status: Ordereddoxycycline hyclate 100 mg oral capsule (3 sources)Tetracycline-class DrugStart: 30-15-3614pbol 1 capsule by mouth twice dailydoxycycline hyclate 100 mg Cap 100 mg = 1 cap(s), Oral, BID, # 14 cap(s), Refills(s) 0, Pharmacy: [facility] #[id number], 172, cm, 06/20/23 15:54:00 EST, Height/Length Dosing, 84, kg, 06/20/23 15:54:00 EST, Weight Dosing Start Date: 09/05/23 Status: Orderedglucosamine sulfate 500 mg oral tablet (13 sources)Start: 78-47-9452vlet 1 tablet by mouth twice dailyGlucosamine Sulfate (Glucosamine) 500 mg Tablet Active 500 MG PO Twice daily June 22, 2023 1:00am Complies with drug therapylactobacillus acidophilus [id number] unt oral capsule (13 sources)Start: 07-39-8773gawl 10 capsules by mouth once daily in the morning Lactobacillus Acidophilus (Probiotic) 10 billion cell Capsule Active 10 CELL PO Every morning June 22, 2023 1:00am Complies with drug therapylevothyroxine sodium 0.05 mg oral tablet (20 sources)l-ThyroxineStart: 07-29-2022 End: 53-10-8903alwf 1 tablet by mouth once daily in the morningLevothyroxine 50 mcg tablet Active 50 MCG PO Every morning July 29, 2022 1:00am Complies withdrug therapyStart: 96-24-7511dmxdfwgpvtixf 50 mcg (0.05 mg) Tab Refills(s) 0 Start Date: 04/24/20 Status: Ordered Repeat number: 1magnesium gluconate 550 mg oral tablet (10 sources)Start: 07-94-4104xvmv 1 tablet by mouth once dailyMagnesium Gluconate 30 mg (550 mg) tablet Active 60 MG PO Daily October 10, 2023 12:00am Complies with drug therapyMulti For Her - (9 sources)Multi For Her - as directed Orally ActiveMultivitamin preparation (8 sources)Start: 98-67-1260rmzh 1 tablet by mouth once daily in the morning Multivitamin Active 1 TAB PO Every morning June 22, 2023 1:00amStart: 86-55-7938owty 1 tablet by mouth once daily in the morningMultivitamin Active 1 TAB PO Every morning June 22, 2023 12:00amMultivitamin Tablet (5 sources)Start: 16-91-1660buxi 1 tablet by mouth once daily in the morning Multivitamin Tablet Active 1 TAB PO Every morning June 22, 2023 1:00am Complies with drug therapyStart: 19-84-7309bpyy 1 tablet by mouth once daily in the morningMultivitamin Tablet Active 1 TAB PO Every morning June 22, 2023 1:00amStart: 26-47-8480rksa 1 tablet by mouth once daily in the morning Multivitamin Tablet Active 1 TAB PO Every morning June 22, 2023 12:00am24 hr oxybutynin chloride 10 mg extended release oral tablet (20 sources)Cholinergic Muscarinic AntagonistStart: 87-31-3522hpas 1 tablet by mouth every twenty-four hours in the morningoxybutynin XL (DITROPAN-XL) 10 mg 24 hr tablet Take 1 tablet (10 mg total) by mouth in the morning.10/11/2023 Active Start: 77-17-5313surd 1 tablet by mouth once daily in the morningOxybutynin Chloride 10 mg tablet extended release 24hr Active 10 MG PO Every morning July 1:00am Complies with drug therapyphentermine hydrochloride 37.5 mg oral capsule (20 sources)Sympathomimetic Amine AnorecticStart: 85-30-3132tbfy 0.5 tablet by mouth once dailyStart: 41-76-6300Aycdkkwrhfn 37.5 mg tablet Active 18.75 MG PO Daily April 17, 2025 12:00am must administer 30 minutes before or 1-2 hours after breakfast Complies with drug therapyStart: 10-08-2024 End: 11-86-0878riec 1 capsule by mouth once dailyPhentermine 37.5 mg capsule Discontinued 37.5 MG PO Daily January 30, 2025 4:00pm April 17, 2025 3:29pm Obesity Obesity, unspecifiedStart: 29-14-4783ommnzzmjdmh (ADIPEX-P) 37.5 mg tablet Take 1 tablet (37.5 mg total) by mouth. 11/12/2024 ActiveStart: 15-69-2730lurd 15 mg by mouth once daily in the morningphentermine 15 mg, Oral, qAM, Refills(s) 0 Start Date: 05/23/24 Status: OrderedStart: 10-10-2023 End: 17-05-7755vrqd 1 capsule by mouth once dailyPhentermine 15 mg capsule Discontinued 15 MG PO Daily 30 30 1 August 06, 2024 6:23pm October 08, 2024 3:57pm Obesity Obesity, unspecifiedPotassium Bicarb-Citric Acid (Klor-Con/Ef) 25 mEq tablet, effervescent (12 sources)Start: 48-93-5960Nxpimgjms Bicarb-Citric Acid (Klor-Con/Ef) 25 mEq tablet, effervescent Active 25 MEQ PO Twice dailyFebruary 2022 1:00am Start: 86-06-5409Iymwvtlye Bicarb-Citric Acid (Klor-Con/Ef) 25 mEq tablet, effervescent Active 25 MEQ PO Twice dailyFebruary 2022 12:00ampotassium bicarbonate 25 meq effervescent oral tablet (20 sources)Start: 50-51-3589Imukzsnwy Bicarb-Citric Acid (Klor-Con/Ef) 25 mEq tablet, effervescent Active 25 MEQ PO Twice dailyFebruary 2022 1:00am Complies with drug therapyprobiotic (9 sources)probiotic as directed Activesertraline 100 mg oral tablet (20 sources)Serotonin Reuptake InhibitorStart: 05-16-2011 End: 95-44-4904ytxu 1 tablet by mouth once daily in the morningSertraline 100 mg tablet Active 100 MG PO Every morning July 29, 2022 1:00am Complies with drug therapyvalACYclovir 1000 mg oral tablet (3 sources)Herpesvirus Nucleoside Analog DNA Polymerase Inhibitor, Herpes Simplex Virus Nucleoside Analog DNA Polymerase Inhibitor, Herpes Zoster Virus Nucleoside Analog DNA Polymerase InhibitorStart: 11-20-2024 End: 77-52-4069wrwqrfjgmspd 1 g Tab 1 gm = 1 tab(s), Refills(s) 0 Start Date: 11/25/24 Status: Ordered Repeat number: 1 Completed/Discontinued Medications MedicationDrug Class(es)DatesSig (Normalized)Sig (Original)acetaminophen 325 mg / HYDROcodone bitartrate 5 mg oral tablet (12 sources)Opioid AgonistStart: 07-07-2023 End: 95-17-2823vfbc 1 tablet by mouth every six hours as needed for pain Hydrocodone-Acetaminophen 5-325 mg tablet Discontinued 1 TAB PO Q6H as needed for pain 12 3 0 July 07, 2023 October 10, 2023 3:26pm Acute postoperative pain Other acute postprocedural painbetamethasone 3 mg/ml / betamethasone acetate 3 mg/ml injectable suspension (8 sources)CorticosteroidStart: 03-18-2025 End: 22-22-4217jcjdhprqcrlgs acetate-betamethasone sodium phosphate (Celestone) injection 1.5 mLStart: 03-18-2025 End: .5 mL, Intra-articular, Once PRN Procedure, Starting on Mon03/18/25 at 1603, For 1 doseStart: 01-16-2025 End: 66-76-6513gdrxzddlspoex acetate-betamethasone sodium phosphate (Celestone) injection 1.5 mLStart: 01-16-2025 End: .5 mL, Intra-articular, Once PRN Procedure, Starting on Mon01/16/25 at 1553, For 1 dosedexamethasone 1 mg oral tablet (5 sources)CorticosteroidStart: 05-02-2024 End: 99-22-5880kqfw 1 tablet by mouth once dailyDexamethasone 1 mg tablet Discontinued 1 MG PO Daily May 02, 2024 1:00am June 10, 2024 3:11pmEffer-K 25 mEq oral tablet, effervescent (5 sources)Start: 64-10-7968egck 1 tablet by mouth twice dailyEffer-K 25 mEq oral tablet, effervescent 25 mEq = 1 tab(s), Oral, BID, # 60 tab(s), Refills(s) 11, Pharmacy: [facility] #[id number], 172, cm, 02/19/21 8:12:00 EDT, Height/Length Dosing, 84.5, kg, 02/19/21 8:12:00 EDT, Weight Dosing Start Date: 04/26/22 Status: Orderedibuprofen 800 mg oral tablet (14 sources)Nonsteroidal Anti-inflammatory DrugStart: 07-29-2022 End: 46-13-6254bcqh 1 tablet by mouth four times daily as needed for pain Ibuprofen 800 mg tablet Discontinued 800 MG PO Four times daily as needed for pain July 29, 2022 1:00am June 22, 2023 4:48pmK-Effervescent 25 mEq oral tablet, effervescent (7 sources)Start: 04-22-2023 End: 72-49-6608dmph 1 tablet by mouth twice dailyK-Effervescent 25 mEq oral tablet, effervescent 25 mEq = 1 tab(s), Oral, BID, X 30 day(s), # 60 tab(s), Refills(s) 11, [id number], 172, cm, 04/27/22 15:12:00 EST, Height/Length Dosing,84, kg, 04/27/22 15:12:00 EST, Weight Dosing Start Date: 04/22/23 Stop Date: 04/16/24 Status: Ordered3 ml liraglutide 6 mg/ml pen injector (20 sources)GLP-1 Receptor AgonistStart: 92-14-8118Eqnbjzs 6 mg/mL subcutaneous injection Refills(s) 0 Start Date: 05/02/23 Status: OrderedStart: 02-22-2023 End: 44-33-2661Hvvqagnpllm (Victoza 3-Julius) 0.6 mg/0.1 mL (18 mg/3 mL) pen injector Discontinued 1.2 MG SUBCUT Every morning June 22, 2023 1:00am October 10, 2023 3:27pm weight lossStart: 83-16-4696gtcyed 0.6 mg by subcutaneous injection once daily, [...] days ActiveMagnesium glycinate (8 sources)Start: 06-22-2023 End: 02-15-1713pbap 3000 mg by mouth once daily at bedtimeMagnesium Glycinate Discontinued 3000 MG PO Daily at bedtime June 22, 2023 1:00am October 09 3:27pmStart: 24-91-4350xotq 3000 mg by mouth once daily at bedtimeMagnesium Glycinate Active 3000 MG PO Daily at bedtime June 22, 2023 12:00amMagnesium Glycinate 100 mg magnesium Capsule (5 sources)Start: 06-22-2023 End: 22-06-2734ehru 1 capsule by mouth once daily at bedtimeMagnesium Glycinate 100 mg magnesium Capsule Discontinued 3000 MG PO Daily at bedtime June 22 024 1:00am October 10, 2023 3:27pmStart: 06-22-2023 End: 63-82-2192civr 1 capsule by mouth once daily at bedtimeMagnesium Glycinate 100 mg magnesium Capsule Discontinued 3000 MG PO Daily at bedtime June 22 024 12:00am October 10, 2023 2:27pmmeloxicam 15 mg oral tablet (15 sources)Nonsteroidal Anti-inflammatory DrugStart: 04-02-2025 End: 10-22-6920gjlz 1 tablet by mouth in the morningmeloxicam (MOBIC) 15 mg tablet Indications: Degenerative tear of lateral meniscus, left TAKE 1 TABLET (15 MG TOTAL) BY MOUTH IN THE MORNING 30 tablet 04/02/2025 04/08/2025 Discontinued (Therapy completed)Start: 11-20-2024 End: 74-21-4632siwe 1 tablet by mouth in the morningmeloxicam (MOBIC) 15 mg tablet Indications: Degenerative tear of lateral meniscus, left TAKE 1 TABLET (15 MG TOTAL) BY MOUTH IN THE MORNING 30 tablet 03/04/2025 04/02/2025 Cqtaiaqtuhtc31 hr metFORMIN hydrochloride 500 mg extended release oral tablet (20 sources)BiguanideStart: 08-31-2023 End: 85-84-3098kqwt 2 tablets by mouth twice daily at dinnerMetformin 500 mg tablet extended release 24 hr Discontinued 0 .ROUTE .COMPLEX 360 0 August 06, 2024 6:23pm December 03, 2024 4:20pm take 2 tablet by mouth twice a day with BREAKFAST AND DINNERStart: 77-90-2715adsglfcna Oral Start Date: 05/02/23 Status: Ordered Repeat number: 1Start: 23-54-1676dspaudffe Oral Start Date: 05/02/23 Status: OrderedStart: 03-21-2023 End: 93-00-0665Lhuhaawnz 500 mg tablet extended release 24 hr Discontinued 1000 MG PO Twice daily June 22, 2023 1:00am August 31, 2023 1:48pm weight loss Start: 77-49-6173dpeb 1 tablet by mouth every twenty-four hours in the morning, then take 1 tablet by mouth at bedtime, then take 2 tablets by mouth once daily metFORMIN XR (GLUCOPHAGE XR) 500 mg 24 hr tablet Take 1 tablet (500 mg total) by mouth in the morning and 1 tablet (500 mg total) before bedtime. 2 tab 2x day . 03/21/2023 ActiveStart: 03-21-2023 End: 34-21-9611dspu 1000 mg by mouth twice dailyMetformin Discontinued [...] tolerated dose if side effects Nov, ActiveStart: 44-86-7141Hgqhiov D 50,000 intl units (1.25 mg) oral capsule (13 sources)Start: 65-99-5661Pyoczax D 50,000 intl units (1.25 mg) oral capsule 50,000 International_Unit = 1 cap(s), Oral, q7day, cap(s), Refills(s) 0, Prophylaxis Start Date: 05/16/11 Status: Ordered Repeat number: 1Start: 75-41-2914Obloaqt D 50,000 intl units (1.25 mg) oral [...] anxiety and depressive disorder; Translations: [Anxiety disorder, unspecified]32-34-9553PuswdciBwczmhuy of urinary tract (20 sources)Kidney stone; Translations: [Calculus of kidney]Onset: 04-20-2022 EpisodicCancer of breast (13 sources)Malignant tumor of -19-3433ZnznrhfItrkua of breast (13 sources)Personal history of primary malignant neoplasm of breast; Translations: [Personal history of malignant neoplasm of breast]Episodic Complications of surgical procedures or medical care (2 sources)Postoperative hypothyroidism; Translations: [Postprocedural hypothyroidism]99-08-7222EqmysthMknginft mellitus without complication (20 sources)Other abnormal glucose; Translations: [Prediabetes]Onset: 11-14-2022 EpisodicDisorders of lipid metabolism (20 sources)Hyperlipidemia; Translations: [Hyperlipidemia, unspecified]Onset: 551282-47-0171WywgsbxBttanwepuakxu symptoms and ill-defined conditions (17 sources)Urge incontinence; Translations: [Urge incontinence of urine]Onset: 67-95-5257TbcfkfcHlwbcodmsrlcs symptoms and ill-defined conditions (20 sources)Blood in urine; Translations: [Increased frequency of urination] 16-29-9813EfkjtiyiNysts disorders and dislocations; trauma-related (5 sources)Degenerative rupture of lateral meniscus of left knee; Translations: [Other meniscus derangements, unspecified lateral meniscus, left knee]11-20-2024 ChronicMenstrual disorders (1 source)Excessive and frequent menstruation with regular cycle; Translations: [Excessive and frequent menstruation with regular cycle]Onset: 85-70-7044Nrdjkmt Non-Hodgkin`s lymphoma (13 sources)Diffuse non-Hodgkin's lymphoma, lymphoblastic (clinical)08-30-2013 ChronicNutritional deficiencies (20 sources)Vitamin D deficiency; Translations: [Vitamin D deficiency, unspecified]ChronicComment on above:Vitamin D deficiency suspected. Vitamin D has been noted to have positive impact on mood and energy. We can recheck periodically and make recommendations for long-term supplementation with ygje-mcw-mcqqjom formulations or prescription grade repletion.Nutritional deficiencies (20 sources)Cobalamin deficiency; Translations: [Deficiency of other specified B group vitamins]75-98-2091TkydyrjdHkmtu bone disease and musculoskeletal deformities (13 sources)Jvphgbrxve23-32-0209EkoelsgkUcecn diseases of bladder and urethra (2 sources)Detrusor overactivity; Translations: [Overactive bladder]Onset: 25-95-5971MrvlkxqUxqti diseases of bladder and urethra (2 sources)Overactive ewvfbsp74-46-7090HuhsksvAxzdk diseases of bladder and urethra (2 sources)Male urethral stricture; Translations: [Unspecified urethral stricture, male, unspecified site]Onset: 66-94-8650HntqhhrmQuilf diseases of bladder and urethra (11 sources)Urethral habczakhl88-67-2498MayeoiijFjfaq nervous system disorders (12 sources)Acute postoperative pain; Translations: [Other acute postprocedural pain]60-32-6637StcupluxDgpbq non-traumatic joint disorders (11 sources)Pain in left knee; Translations: [Pain in joint, lower leg] 05-63-1674HrpjxeybDgzmm nutritional; endocrine; and metabolic disorders (20 sources)Obesity, unspecified; Translations: [Obesity, unspecified]Onset: 13-56-5465ZiofpoeLzeto nutritional; endocrine; and metabolic disorders (20 sources)Obesity; Translations: [Obesity, unspecified]12-83-8623HktzwriPihub nutritional; endocrine; and metabolic disorders (9 sources)Body [...] [Encounter for screening for malignant neoplasm of cervix]93-38-9563TfrgkhsbFgrorifl codes; unclassified (17 sources)Family history of diabetes mellitus; Translations: [Family history of diabetes mellitus]EpisodicResidual codes; unclassified (2 sources)Acquired absence of both cervix and uterus; Translations: [Acquired absence of both cervix and uterus]37-58-6834XdvyzcpsZwucoezr codes; unclassified (14 sources)Family history of diabetes mellitus; Translations: [Family history of diabetes mellitus]65-53-2347QfrlgmatRbjjfur disorders (20 sources)Hypothyroidism; Translations: [Thyroid nodule]04-64-9689Fsgqfov Unclassified (1 source)Encounter for preprocedural laboratory examination; Translations: [Encounter for preprocedural laboratory examination]Onset: 06-22-2023 Unclassified (4 sources)Left knee pain, unspecified vkprygcjoh45-50-5889Fcbrnazwkcbj (1 source)Patient encounter lycdij02-07-4835Rqnrhxs tract infections (20 sources)Chronic cystitis; Translations: [Other chronic cystitis without hematuria]Onset: 81-46-1608WchogotUjdnepz tract infections (9 sources)Urinary tract infectious disease; Translations: [Urinary tract infection, site not specified]Onset: 47-31-9873XsacnpheXufzx infection (1 source)Herpes zoster; Translations: [Zoster without complications]11-20-2024 Episodic Past or Other Problems Problem ClassificationProblemDateDocumented DateEpisodic/Chronic Administrative/social admission (1 source)Dietary counseling and surveillance; Translations: [Dietary counseling and surveillance]Onset: 16-97-7908NygsrndrRojr disorders (8 sources)Mood disordersOnset: 11-29-2023 Resolved: [id number] endocrine disorders (1 source)Endocrine disorder, unspecified; Translations: [ENDOCRINE DISORDER UNSPECIFIED]Onset: 13-54-1503BbdmbiogWvshp nervous system disorders (1 source)Other acute postprocedural pain; Translations: [Other acute postprocedural pain]Onset: 45-01-3304JziogkqvDrqosfkxszmz (13 sources)STRESS FRACTURE RIGHT EMWIV79-48-6777Kobqwtoqntzm (8 sources)Onset: 11-29-2023 Resolved: [id number] Results Test NameValueInterpretationReference RangeFacilityPOCT Hemoglobin A1con 47-31-5805RvP2z (Bld) [Mass fraction]5.9 %4 - 7 %[facility] Knee - left 3 Viewson 35-27-4647Yhfarge Result: Three views, bilateral PA weight-bearing, sunrise, lateral of the left knee(s) taken today and saved to the permanent medical record are reviewed. Near complete loss lateral joint space left knee with valgus posture. 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 2 metallic screws intact at proximal tibia from previous TTO. Bipartite patella right knee.[facility] Panel Informationon 15-24-2240Qcjhuba Bender, [facility] 03/23/2025 8:47 PM L Inj/Asp: L knee on 03/18/2025 4:03 PM Indications: pain Details: 25 G needle, lateral approach Medications: 1.5 mL betamethasone acetate-betamethasone sodium phosphate 6 (3-3) MG/ML Consent was given by the patient. [facility] Panel Informationon 22-79-9961Giwtfyb Bender, ARRT 03/23/2025 8:24 PM L Inj/Asp: L knee on 01/16/2025 3:53 PM Indications: pain Details: 25 G needle, lateral approach Medications: 1.5 mL betamethasone acetate-betamethasone sodium phosphate 6 (3-3) MG/ML Consent was given by the patient. [facility] 3 Viewson 78-89-7006Xpxohmnjz Study observation (narrative)[facility] 22-27-7910YwxrbumcrTqtvbcadl From: Katarina Driver To: EU - Recalls Isaias; Sent: 01/14/2025 15:38:42 EDT Show up: 04/19/2025 15:38:00 EDT Subject: cysto/UD Due Date/Time: 05/12/2025 15:38:00 EST Reminder/Recall [facility] Noteon 80-10-6365Erzevba Office/Clinic NoteUrology Office/Clinic Note HPI Staff 49 [...] urine The Urethra was dilated to: 20-30 Latvian with sounds. 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 (more content not included)...[facility] CampusComment on above: Result Comment: Electronically Signed By: [place] ESPARZA MD\.br\Date and Time Signed: 01/14/25 15:33 EDT\.br\Electronically Co-Signed By: Danette Graves\.br\Date and Time Co-Signed: 01/14/25 15:31 EDTAmbulatory Visit Summaryon 18-41-5994Hrtxfnnftt Visit SummaryAmbulatory Visit Summary NICOLETTE EVANGELISTA Lorne [...] urethral stricture (07/16/2019), BILATERAL MASTECTOMY WITH TISSUE SHEARER SCREEN MEASURER AND TRIMMER INSERTION, bladder suspension, ESWL KIDNEY STONE X2, [...] [facility] [address] , [place] [address]- Medications What How Much When Instructions Unchanged [...] including vitamins, herbs, eye drops, creams, and lahn-ltm-uxdzylu medicines. ??? Any problems you or family members have had with anesthesia. ??? Any bleeding problems you have. ??? Any surgeries you have had. ??? Any medical conditions you have. ??? Whether you are or may be . What are the risks? Your health care provider will talk w (more content not included)...[facility] CampusUrology Office/Clinic Noteon 37-48-7650Rhvmxkp Office/Clinic NoteUrology Office/Clinic Note Chief Complaint 6 [...] MD, URL [facility] [address] [place] [address]- Additional Instructions: schedule Cysto with UD Patient Education Urethral Dilation Dietary Guidelines to Help Prevent Kidney Stones I, Danette Graves, personally scribed for Dr. Esparza on 11/25/2024 17:16:29. . Documentation recorded by t (more content not included)...[facility] CampusComment on above:Result Comment: Electronically Signed By: [place] ESPARZA MD\.br\Date and Time Signed: 11/25/24 17:22 EDT\.br\Electronically Co-Signed By: Danette Graves\.br\Date and Time Co-Signed: 11/25/24 17:18 EDT Plastic Surgery Visit Reporton 34-68-8400Qpnrbpt Surgery Visit ReportWParsons [facility] [address], [address] [place] [address] OFFICE VISIT Date of Service: 09/11/24 MR#: [id number] Acct: [id number] Name: NICOLETTE EVANGELISTA Rep #: [id number] : 1975 Provider: Dr. Indira jeronimo MD Age/Sex: 49/F Location: [facility] Status: Signed Intake Vital Signs 09/11/24 10:37 [...] Nurse's Note: previous pt here for abdinoplasty [facility] Medical History (Updated 09/11/24 @ 11:23 [...] on her over 15 years ago in [place]. She is in good health. She has [...] Care Code Cosmetic Cons (more content not included)...[facility] Outside Recordson 84-65-7514Udxunpc Records [id number]#1.00[facility] Outside Recordson 93-79-6774Jflmmlo Records [id number]#1.00[facility] HamiltonC Urineon 82-16-1014Ueieycjw identified Cx Nom (U)Microbiology PROCEDURE: Urine Culture [...] Locations R1: This test was performed at: [facility], [address] [place] [address], [address]- , [place], PtcbftXdvkxwMercy Health [facility]sburg HospitalComment on above:Performed By: #### [id number] #### [facility] [address] [place] [address]Jr Panel Informationon 72-12-7617Zmmbefvfhkmae Mtfgw943 [facility] SystemOutside Recordson 43-49-7078Wdabwbp Records [id number]#1.00OTGTIFFLakeHealth [facility]Point [facility] Urineon 98-80-7313Xjroruce identified Cx Nom (U)Microbiology PROCEDURE: Urine Culture [...] Locations R1: This test was performed at: [facility], [address] [place] [address], [address]- , , CranhmEsobiwSumma Health Akron CampusComment on above:Performed By: #### [id number] #### [facility] [address] [place], [place] [address]Ambulatory Visit Summaryon 07-31-3674Cgsifvwzsm Visit Summary NICOLETTE EVANGELISTA :1975 Visit Date:11/07/2023 [...] urethral stricture (07/16/2019), BILATERAL MASTECTOMY WITH TISSUE SHEARER SCREEN MEASURER AND TRIMMER INSERTION, bladder suspension, ESWL KIDNEY STONE X2, LEFT KNEE RECONSTRUCTIVE SURGERY, PARATHYROID GLAND EXCISION, Part of lobe of thyroid gland. Discharge Vitals Height 172 cm Height 68 in Weight 84 kg Weight 184.8 lb BMI 28.39 What to do next Scheduled Follow-Up Appointments Monday 3:00 PM EST With: JOSELYN HAYES PA-C [facility] Summary NICOLETTE EVANGELISTA :1975 Visit Date:11/07/2023 [...] urethral stricture (07/16/2019), BILATERAL MASTECTOMY WITH TISSUE SHEARER SCREEN MEASURER AND TRIMMER INSERTION, bladder suspension, ESWL KIDNEY STONE X2, LEFT KNEE RECONSTRUCTIVE SURGERY, PARATHYROID GLAND EXCISION, Part of lobe of thyroid gland. Discharge Vitals Height 172 cm Height 68 in Weight 84 kg Weight 184.8 lb BMI 28.39 What to do next Scheduled Follow-Up Appointments Monday 3:00 PM EST With: JOSELYN HAYES PA-C [facility] CenterPatient Educationon 03-24-9584Yoibuge EducationObstetrics and Gynecology Urinary Tract Infection, Adult [...] this condition includes: ? Antibiotic medicine. ? Qvtr-hgw-ifwdtta medicines to treat discomfort. ? Drinking enough [...] these instructions at home: Medicines ? Take netz-qad-gqxuhbd and prescription medicines only as told by [...] Document Revie (more content not included)...Normal [facility] CampusUrology Office/Clinic Noteon 73-21-3528Shskilf Office/Clinic NoteChief Complaint F/U after cysto/UD HPI [...] Contact Information LAZ FLEMING, JOSELYN [place], URL [address] [place] [address] [phone] Additional Instructions: 6 mos (no labs) Patient [...] urethral stricture (07/16/2019), BILA (more content not included)...[facility] CampusComment on above:Result Comment: Electronically Signed By: JOSELYN HAYES PA-C\.br\Date and Time Signed: 11/06/2414:59 EDT\.br\Electronically Co-Signed By: Bebe Abarca\.br\Date and Time Co-Signed: 11/07/23 15:51 WFGPwH2n HPLC (Bld) [Mass fraction]on 38-49-5533LhP7y (Bld) [Mass fraction]6.2 %[facility] Urineon 11-25-2891Oujspzqq identified Cx Nom (U)Microbiology PROCEDURE: Urine Culture [...] Locations R1: This test was performed at: [facility], [address] [place] [address], [address]- , , ItcfewMlrjoySumma Health Akron CampusComment on above:Performed By: #### [id number] ####[facility] [address] [place], [place] [address]Sndonqzwsh Visit Summaryon 68-83-3462Eyylusgyrf Visit Summary NICOLETTE EVANGELISTA:1975 Visit Date:09/26/2023 Ambulatory [...] urethral stricture (07/16/2019), BILATERAL MASTECTOMY WITH TISSUE SHEARER SCREEN MEASURER AND TRIMMER INSERTION, bladder suspension, ESWL KIDNEY STONE X2, LEFT KNEE RECONSTRUCTIVE SURGERY, PARATHYROID GLAND EXCISION, Part of lobe of thyroid gland. What to do next Scheduled Follow-Up Appointments Monday. 2023 2:45 PM EDT With: ISAIAS SMITH, [place] Conti Where: [facility] HospitalURINALYSISOrdered By: SYSTEM SYSTEM on 38-69-7863Otjuu (U) Light-Yellow 1 (09/26/23 3:07 PM)NormalYellowAMG [facility] UA Auto SSComment on above:Interpretive Data: Microscopic readings are only performed on those samples that meet specific criteria set forth by [facility].Glucose (U) [Mass/Vol]NegativeNormalNegativemg/dLAMG SPECIALTY [facility] UA Auto SSKetones Ql (U)NegativeNormal Negativemg/dLFT UA Auto SSUA Bacteria1+ graded/HPFInvalid Interpretation Code Tracegraded/HPFFT UA Auto SSUA BloodNegativeNormalNegativemg/dLAMG [facility]TY [facility] UA Auto SS UA ClarityClear (09/26/23 3:07 PM)NormalClearFTMC UA Auto SSUA Leuk Xja886 Pritesh/uL Pritesh/uLInvalid Interpretation CodeNegativeLeu/uLAMG [facility] UA Auto SSUA MucousTrace graded/LPFNormal Negativegraded/LPFFTMC UA Auto SSUA NitriteNegativeNormalNegativemg/dLAMG [facility] UA Auto SSUA pH5.5 *NA* (09/26/23 3:07 PM)Invalid Interpretation Code5.0 - 9.0[facility] UA Auto SSUA Protein NegativeNormalNegativemg/dLAMG [facility] UA Auto SSUA RBC0-3 graded/HPFNormal 0-3graded/HPFAMG [facility] UA Auto SSUA Spec Grav1.012 *NA* (09/26/23 3:07 PM)Invalid Interpretation Code1.005 - 1.030[facility] UA Auto SSUA Squam Epithelial0-2 graded/HPFNormal0-2graded/HPFAMG [facility] UA Auto SSUA Urobilinogen NegativeNormalNegativemg/dLAMG [facility] UA Auto SSUA CBX69-71 graded/HPFInvalid Interpretation Code0-5graded/HPFAMG [facility] UA Auto SSUrobilinogen (U) [Mass/Vol] NegativeNormalNegativemg/dLAMG [facility] UA Auto SSURINALYSISOrdered By: Ingrid Arrington on 73-60-3916PP Spec DescRandom Urine (09/26/23 3:07 PM)NormalAMG [facility]TY [facility] UA Auto SSUrinalysis with Microon 24-33-1135Zvxbe (U) Light-YellowNormalYellowCleveland Clinic Euclid HospitalComment on above:Result Comment: Microscopic readings are only performed on those samples that meet specific criteria set forth by [facility].Performed By: #### [id number] ####[facility] Vzdcbwpcro[address] JJ64847Iikfjmm (U) [Mass/Vol]NegativeNormalNegativeCleveland Clinic Euclid HospitalComment on above:Performed By: #### [id number] ####[facility] Dcxfybwgci[address] Sim OF[address]Ufpibqp Ql (U)Negative NormalNegativeCleveland Clinic Euclid HospitalComment on above:Performed By: #### [id number] ####[address], [place] [address]DY BloodNegativeNormalNegativeCleveland Clinic Euclid HospitalComment on above: Performed By: #### [id number] ####[address], HS[address]MS Bacteria1+ CD:[id number] [facility] Medical CenterComment on above:Performed By: #### [id number] ####[address], [id number] ClarityClearNormal ClearCleveland Clinic Euclid HospitalComment on above:Performed By: #### [id number] ####[address], [id number] Leuk Mic305 Pritesh/uLAbnormalNegCleveland ClinicComment on above: Performed By: #### [id number] ####[address], [id number] MucousTraceNormalNegCleveland ClinicComment on above:Performed By: #### [id number] ####[address], [id number] NitriteNegativeNormal NegativeCleveland Clinic Euclid HospitalComment on above:Performed By: #### [id number] ####[address], [place] [address]WR pH5.5Invalid Interpretation Code5.0-9.0[facility] Comment on above:Performed By: #### [id number] ####[address], OM[address]PE ProteinNegativeNormalToledo HospitalComment on above:Performed By: #### [id number] ####[address], QY[address]UY RBC0-3Normal 0-3FFort Hamilton HospitalComment on above:Performed By: #### [id number] ####[place] [address] GB[address]RJ Spec Grav1.012Invalid Interpretation Code1.005-1.030[facility] Comment on above:Performed By: #### [id number] ####[facility] [address]UA Squam Bgcflfdxck6-8Hkprcq8-2Nteygx [facility] Medical CenterComment on above:Performed By: #### [id number] ####[facility] [address]UA Urobilinogen NegativeNormalNegativeCleveland Clinic Euclid HospitalComment on above:Performed By: #### [id number] ####[address]UA TQG48-70Susscnpa6-3NhdlktFort Hamilton HospitalComment on above:Performed By: #### [id number] ####[address] RQ[address]Lwetnejlozir (U) [Mass/Vol]Negative NormalNegativeCleveland Clinic Euclid HospitalComment on above:Performed By: #### [id number] ####[address] [address]ZY Spec DescRandom UrineNormalCleveland Clinic Euclid HospitalComment on above: Performed By: #### [id number] ####[address] PT[address]Jzv-Kbkbltpgtpqpq Formon 65-01-1325Kna-Certification [id number]#1.00TIFFNoMercy Health Perrysburg HospitalRAD - CT Reporton 04-90-2603QSW - CT Report [id number]#1.00TIFFNormalFisher [facility] Urineon 81-26-6234Pnypkfwv identified Cx Nom (U)Microbiology PROCEDURE: Urine Culture [...] Locations R1: This test was performed at: [facility], [address] [place] [address], [address] , , NsunerGhcsgeSumma Health Akron CampusComment on above:Performed By: #### [id number] ####[facility] [address]pc[address]ys[address] [place], [place] [address]Octoyyeifm Visit Summaryon 90-90-5268Wlbxipmlrc Visit Summary NICOLETTE EVANGELISTA :1975 Visit Date:08/21/2023 [...] urethral stricture (07/16/2019), BILATERAL MASTECTOMY WITH TISSUE SHEARER SCREEN MEASURER AND TRIMMER INSERTION, bladder suspension, ESWL KIDNEY STONE X2, LEFT KNEE RECONSTRUCTIVE SURGERY, PARATHYROID GLAND EXCISION, Part of lobe of thyroid gland. What to do next Scheduled Follow-Up Appointments Monday 2:45 PM EDT With: [place] ESPARZA MD Where: [facility] HospitalHCG ( test) IA.rapid Ql (U)Ordered By: Jesús Andrew on 89-16-4995VGK ( test) Ql (U)NegativeAvita Health SystemHCG,Urineon 63-09-4911Vpsx HCG ( test) Ql (U)NegativeNoFormerly [facility] Physician GroupComment on above:Result Comment: PERFORMED BY: [place] [address] PATHOLOGIST CANDLE MOLDER GRACY BARRY M.D.Performed By: #### UHCG #### [place] [address] USALon 63-53-1784ETdhkchnc: [id number] Received: 07/07/23 Status: SUBHASH [place] Num: [id number] Spec Type: Surgical Subm Dr: Chava Crowe DO Tissues: A Uterus w/ or w/o tubes ovaries except neoplastic or prolap (CERVIX, MARIS TU Procedures: HE/, Gross/Micro L5 Age/ Patient Sex Location Account Attending Physician Jean CarlosNicolette Lorne 48/F [place] [id number] Chava Crowe DO SPEC NUM: [id number] RECD: 07/07/23 STATUS: SUBHASH [place] NUM: [id number] UMESH: 07/07/[address]: Chava Crowe DO ENTERED: 07/07/[address] [facility] [address]: SPEC TYPE: Surgical DEPT: S [...] [id number] Received: 07/07/23 Status: SUBHASH [place] Num: [id number] Spec Type: Surgical Subm Dr: Chava Crowe DO Tissues: A Uterus w/ or w/o tubes ovaries except neoplastic or prolap (CERVIX, MARIS TU Procedures: , Gross/Micro L5 Patient: Nicolette Evangelista [id number] (Continued) Specimen: [id number] Received: 07/07/23 (Continued) Gross Description (Continued) Signed (signature on file) Erin Cardenas MD 07/10/23 1302 Specimen: [id number] Received: 07/07/23 Status: SUBHASH [place] Num: [id number] Spec Type: Surgical Subm Dr: Chava Crowe DO Tissues: A Uterus w/ or w/o tubes ovaries except neoplastic or prolap (CERVIX, MARIS TU Procedures: , Gross/Micro L5 Patient: Nicolette Evangelista [id number] (Continued) Specimen: [id number] Received: 07/07/23 (Continued) Gross [...] unilocular cyst filled with thin red-brown fluid. Tyre Retreader sections are submitted in 12 cassettes as follows: A1 - Posterior cul-de-sac serosa and sections of 2 largest intramural nodules A2 - Cervix (anterior and posterior) A3-A4 - Anterior endomyometrium with intramural nodules (largest with potential necrosis in A4 A5-A6 - Intramural nodules A7-A9 - Right adnexa with fimbria entirely submitted A10-A12 - Left adnexa with fimbria entirely submitted CPT Codes 82120 (more content not included)...NormalThe [facility] Physician GroupAutomated basophil %Ordered By: Chava Crowe on 09-35-9818Folbyhyro/100 WBC (Bld)0.4 % Normal.[facility] Health SystemComment on above:Performed By: #### CBC #### [place] [address] USAAutomated basophil countOrdered By: Chava Crowe on 13-58-3801Damivwqhk (Bld) [#/Vol]0.0 10*3/uLNormal0.0-0.2FThe Surgical Hospital at SouthwoodsComment on above:Result Comment: PERFORMED BY: [place] [address] PATHOLOGIST CANDLE MOLDER GRACY BARRY M.D.Performed By: #### CBC #### [place] [address] USAAutomated blood monocyte countOrdered By: Chava Crowe on 17-61-0726Izzqfihbe (Bld) [#/Vol]0.5 10*3/uLNormal0.0-0.8[facility] Health SystemComment on above:Performed By: #### CBC #### [place] [address] USAAutomated eosinophil %Ordered By: Chava Crowe on 10-17-3238Qsnbsvbvlzv/100 WBC (Bld)0.7 %Normal.[facility] Comment on above:Performed By: #### CBC #### [place] [address] USAAutomated eosinophil countOrdered By: Chava Crowe on 88-18-5019Uqgpeynspub (Bld) [#/Vol]0.1 10*3/uLNormal0.0-0.45[facility] Health SystemComment on above:Performed By: #### CBC #### [place] [address] USAAutomated monocyte %Ordered By: Chava Crowe on 44-75-0803Ssdejjvyx/100 WBC (Bld)4.9 %Normal.[facility] Comment on above:Performed By: #### CBC #### [place] [address] USAAutomated neutrophil %Ordered By: Chava Crowe on 15-84-6961Bioppabnzmv/100 WBC (Bld)68.8 %Normal.[facility] Health SystemComment on above:Performed By: #### CBC #### [place] [address] USAComplete Blood Count Auto Diffon 08-04-3459Bjhb Corpuscular HGB Conc33.8 g/hIJtvibg90.0-35.0The [facility] Physician GroupComment on above:Performed By: #### CBC #### [place] [address] USANRBC%0.0 /100{WBC}Normal0-0.5The [facility] Comment on above:Performed By: #### CBC #### [place] [address] USAErythrocyte distribution width [Ratio] by Automated count Ordered By: Chava Crowe on 66-64-4888Qrotjpjtwnf distribution width (RBC) [Ratio]13.7 %Jmfvlw95.9-15.3FThe Surgical Hospital at SouthwoodsComment on above: Performed By: #### CBC #### [place] [address] USAErythrocytes [#/volume] in Blood by Automated countOrdered By: Chava Crowe on 64-71-9408IGY (Bld) [#/Vol]4.64 10*6/uLNormal3.60-5.00 [facility] Health SystemComment on above:Performed By: #### CBC #### [place] [address] USAHematocrit [Volume Fraction] of Blood by Automated count Ordered By: Chava Crowe on 39-91-6830Lospanifdb (Bld) [Volume fraction]41.9 % Blnjwd54.0-46.4FThe Surgical Hospital at SouthwoodsComment on above:Performed By: #### CBC #### [place] [address] USAHemoglobin [Mass/volume] in BloodOrdered By: Chava Crowe on 85-32-3071Aybadjeoup (Bld) [Mass/Vol]14.1 g/vJQztpzz45.8-15.4FThe Surgical Hospital at SouthwoodsComment on above:Performed By: #### CBC #### [place] [address] USALeukocytes [#/volume] corrected for nucleated erythrocytes in Blood by Automated counOrdered By: Chava Crowe on 94-89-0478OBP corrected for nucl RBC Auto (Bld) [#/Vol]9.3 10*3/uL3.8-11.6FThe Surgical Hospital at SouthwoodsLeukocytes [#/volume] in Blood by Automated countOrdered By: Chava Crowe on 93-26-1980NIK (Bld) [#/Vol]9.3 10*3/uLNormal3.8-11.6FThe Surgical Hospital at SouthwoodsComment on above:Performed By: #### CBC #### [place] [address] USALymphocytes [#/volume] in Blood by Automated countOrdered By: Chava Crowe on 96-14-0084Qgmdzoypwqj (Bld) [#/Vol]2.4 10*3/uLNormal 1.00-4.8[facility] Health SystemComment on above:Performed By: #### CBC #### [place] [address] USALymphocytes/100 leukocytes in Blood by Automated count Ordered By: Chava Crowe on 45-83-1413Nanoebrozvm/100 WBC (Bld)25.2 %Normal. [facility] Health SystemComment on above:Performed By: #### CBC #### [place] [address] USAMCH [Entitic mass] by Automated countOrdered By: Chava Crowe on 24-38-4176RMY (RBC) [Entitic mass]30.4 acIijwab98.7-34.3FThe Surgical Hospital at SouthwoodsComment on above:Performed By: #### CBC #### [facility] [address] [place], [place] [address]HC Auto (RBC) [Mass/Vol]Ordered By: Chava Crowe on 14-79-6836ABTL (RBC) [Mass/Vol]33.8 g/dL32.0-35.0Avita Health SystemMCV [Entitic volume] by Automated countOrdered By: Chava Crowe on 07-65-3406HBE (RBC) [Entitic vol]90.2 vQJfqnwy22-669RiqhqptbaAvita Health SystemComment on above:Performed By: #### CBC #### [facility] [address] [place] [address] USANeutrophils [#/volume] in Blood by Automated countOrdered By: Chava Crowe on 80-98-5563Agrsbtliape (Bld) [#/Vol]6.4 10*3/uLNormal1.8-7.7 [facility] Health SystemComment on above:Performed By: #### CBC #### [facility] [address] [place] [address] USANucleated erythrocytes [Presence] in Blood by Automated countOrdered By: Chava Crowe on 42-21-6739Uozbhivdv RBC Auto Ql (Bld)0.0 /100{WBC}0-0.5FThe Surgical Hospital at SouthwoodsPST Type and Screenon 06-22-2023 ABO and Rh group Nom (Bld)Blood group B Rh(D) positiveNoFormerly [facility] Physician GroupComment on above:Order Comment: Date of Surgery: [id number] Comment: PERFORMED BY: [place] [address] PATHOLOGIST CANDLE MOLDER GRACY BARRY M.D.Platelet mean volume [Entitic volume] in Blood by Automated countOrdered By: Chava Crowe on 48-37-9862Ptfteigc mean volume (Bld) [Entitic vol]7.8 fLNormal6.3-10.7FThe Surgical Hospital at SouthwoodsComment on above: Performed By: #### CBC #### [facility] [address] [place] [address] USAPlatelets [#/volume] in Blood by Automated countOrdered By: Chava Crowe on 04-43-6079Fuymxaqzw (Bld) [#/Vol]283 10*3/lJVohoen828-005 [facility] Health SystemComment on above:Performed By: #### CBC #### [facility] [address] [place] [address] USAPre-Certification Formon 12-12-7158Dev-Certification Form [id number]#1.00TIFOhio State University Wexner Medical CenterConsent for Procedure/Surgeryon 65-51-8121Qtlcnic for Procedure/Surgery [id number]#1.00TIFOhio State University Wexner Medical CenterUrology Office/Clinic Noteon 24-89-0693Rgwbnaw Office/Clinic NoteChief Complaint Cysto/UD HPI Staff 48 [...] urine The Urethra was dilated to: 20-30 Latvian with sounds. Specimens Removed: None Removal: Cystoscope [...] FLEMING, JOSELYN [place], URAutumn In 4 months [address] [facility] [place] [address] Additional Instructions: Patient Education I, Ara Mabry [...] of urethral s (more content not included)... [facility] CampusComment on above:Result Comment: Electronically Signed By: [place] ESPARZA MD\.br\Date and Time Signed: 06/20/23 16:42 EST\.br\Electronically Co-Signed By: Ara Mabry.br\Date and Time Co- Signed: 06/20/23 16:39 ESTInsurance Correspondenceon 14-36-8453Bvtyhitvi [id number]#1.00TIFFNormalCleveland Clinic Euclid HospitalGLYCOHEMOGLOBIN A1Con 64-42-1386BDH RECOMMENDATIONSEE BELOW NormalThe [facility]lston HospitalComment on above:Result Comment: ADA RECOMMENDED LIMIT 4.0 - 6.0 ADA THERAPEUTIC TARGET < 7.0 ACTION SUGGESTED > 7.0Performed By: #### A1C #### [facility] [address] [place] [address] Dr. Rosendo WilsonGlucose [Mass/Vol]137 mg/dLNoAvita Health System Bucyrus HospitalComment on above:Performed By: #### A1C #### [facility] [address] [place] [address] Dr. Rosendo WilsonHbA1c (Bld) [Mass fraction]6.4 %Critically high4.5-6.2The [facility] ColumbusComment on above:Performed By: #### A1C #### [facility] [address] [place] [address] Dr. Rosendo MontanezID PROFILEon 56-12-9343PLEM-HDL RATIO NORMSEE BELOWGrant HospitalComment on above:Result Comment: 3.3 - 4.4 LOW RISK 4.4 - 7.1 AVERAGE RISK 7.1 - 11.0 MODERATE RISK >11.0 HIGH RISKPerformed By: #### TSHRFT4, LIPID, CMP #### [facility] [address] [place] [address] Dr. Rosendo Madridesterol [Mass/Vol]200 mg/dLNormal<=200The [facility] Comment on above:Performed By: #### TSHRFT4, LIPID, CMP #### [facility] [address] [place] [address] Dr. Rosendo WilsonCholesterol in HDL [Mass/Vol]67 mg/dLCritically nloj68-11Fuz [facility] ColumbusComment on above:Performed By: #### TSHRFT4, LIPID, CMP #### [facility] [address] [place] [address] Dr. Rosendo WilsonCholesterol in LDL [Mass/Vol]122.0 mg/dLNoAvita Health System Bucyrus HospitalComment on above:Performed By: #### TSHRFT4, LIPID, CMP #### [facility] [address] [place] [address] Dr. Rosendo WilsonCholesterol.total/Cholesterol in HDL [Mass ratio]3.0 {ratio} NormalThe [facility] ColumbusComment on above:Performed By: #### TSHRFT4, LIPID, CMP #### [facility] [address] [place] [address] Dr. Rosendo Morin NORMAL> or = 60 mg/dl - LOW CARDIOVASCULAR RISK <40 mg/dl - HIGH CARDIOVASCULAR RISKNoAvita Health System Bucyrus HospitalComment on above:Performed By: #### TSHRFT4, LIPID, CMP #### [facility] [address] [address] [address] Rosendo WilsonLDL CALC NORMALSEE BELOWNoAvita Health System Bucyrus HospitalComment on above:Result Comment: <100 mg/dl OPTIMAL 100 - 129 mg/dl NEAR OR ABOVE OPTIMAL 130 - 159 mg/dl BORDERLINE HIGH 160 - 189 mg/dl HIGH >190 mg/dl VERY HIGH Performed By: #### TSHRFT4, LIPID, CMP #### [facility] [address] [place] [address] Dr. Rosendo WilsonTriglyceride [Mass/Vol]55 mg/dLNormal<=150The [facility] Comment on above:Performed By: #### TSHRFT4, LIPID, CMP #### [facility] [address] [place] [address] Dr. Rosendo WilsonVLDL CALC11.0 mg/dLNoAvita Health System Bucyrus HospitalComment on above: Performed By: #### TSHRFT4, LIPID, CMP #### [facility] [address] [place] [address] Dr. Rosendo WilsonPROKenzie 14(COMP METB)on 15-67-7581Cgdunqv [Mass/Vol]3.3 g/dL Critically low3.4-5.0The [facility] ColumbusComment on above:Performed By: #### TSHRFT4, LIPID, CMP #### [facility] [address] [place] [address] Dr. Rosendo WilsonAlbumin/Globulin [Mass ratio]0.8 {ratio}NormalThe [facility] ColumbusComment on above:Performed By: #### TSHRFT4, LIPID, CMP #### [facility] [address] [address] [address] Rosendo Gee [Catalytic activity/Vol]91 U/KUtsmuy88-103Vtz [facility] Hospitalment on above:Performed By: #### TSHRFT4, LIPID, CMP #### [facility] [address] [place] [address] Dr. Rosendo Manuel [Catalytic activity/Vol]31 U/NFxdgyt51-84Ute [facility] ColumbusComment on above:Performed By: #### TSHRFT4, LIPID, CMP #### [facility] [address] [place] [address] Dr. Rosendo Bonner gap [Moles/Vol]11.3 mmol/LNormalWilson [facility] Comment on above:Performed By: #### TSHRFT4, LIPID, CMP #### [facility] [address] [place] [address] Dr. Rosendo Tai [Catalytic activity/Vol]21 U/NVbceuw53-43Vis [facility] ColumbusComment on above:Performed By: #### TSHRFT4, LIPID, CMP #### [facility] [address] [place] [address] Dr. Rosendo WilsonBilirubin [Mass/Vol]0.4 mg/dLNormal0.2-1.0[facility] Comment on above:Performed By: #### TSHRFT4, LIPID, CMP #### [facility] [address] [place] [address] Dr. Rosendo WilsonCalcium [Mass/Vol]8.8 mg/dLNormal8.5-10.1[facility] Comment on above:Performed By: #### TSHRFT4, LIPID, CMP #### [facility] [address] [place] [address] Dr. Rosendo WilsonChloride [Moles/Vol]102 mmol/RTwhjyz95-764VlhWilson [address] Hospital Comment on above:Performed By: #### TSHRFT4, LIPID, CMP #### [facility] [address] [place] [address] Dr. Yilan ChangCO2 [Moles/Vol]28.7 mmol/KLixupc09.0-32.0The [facility] Comment on above:Performed By: #### TSHRFT4, LIPID, CMP #### [facility] [address] [address] [address] Rosendo WilsonCreatinine [Mass/Vol]0.83 mg/dLNormal0.55-1.02The [facility] ColumbusComment on above:Performed By: #### TSHRFT4, LIPID, CMP #### [facility] [address] [address] [address] Rosendo LeviGFR-AF MONGOLIAN>60Normal>=60The [facility] - ColumbusComment on above:Performed By: #### TSHRFT4, LIPID, CMP #### [facility] [address] [place] [address] Dr. Rosendo LeviGFR-NON AF MONGOLIAN>60Normal>=60The [facility] ColumbusComment on above:Performed By: #### TSHRFT4, LIPID, CMP #### [facility] [address] [address] [address] Rosendo WilosnGlobulin (S) [Mass/Vol]4.3 g/dLNormalThe [facility] ColumbusComment on above:Performed By: #### TSHRFT4, LIPID, CMP #### [facility] [address] [place] [address] Dr. Rosendo WilsonGlucose [Mass/Vol]114 mg/dLCritically yfgb35-736Dre [facility] ColumbusComment on above:Performed By: #### TSHRFT4, LIPID, CMP #### [facility] [address] [address] [address] Rosendo WilsonPotassium [Moles/Vol]4.0 mmol/LNormal3.5-5.1The [facility] Comment on above:Performed By: #### TSHRFT4, LIPID, CMP #### [facility] [address] [place] [address] Dr. Rosendo WilsonProtein [Mass/Vol]7.6 g/dLNormal6.4-8.2The [facility] Comment on above:Performed By: #### TSHRFT4, LIPID, CMP #### [facility] [address] [address] [address] Rosendo Arangoum [Moles/Vol]138 mmol/KWxszuq636-146Pwe [facility] Comment on above:Performed By: #### TSHRFT4, LIPID, CMP #### [facility] [address] [place] [address] Dr. Rosendo Bautista nitrogen [Mass/Vol]22.0 mg/dLCritically high7.0-18.0The [facility] ColumbusComment on above:Performed By: #### TSHRFT4, LIPID, CMP #### [facility] [address] [place] [address] Dr. Rosendo Bautista nitrogen/Creatinine [Mass ratio]26.5 mg/mgGrant HospitalComment on above:Performed By: #### TSHRFT4, LIPID, CMP #### [facility] [address] [place] [address] Dr. Rosendo Torres W/ REFLEX TO FT4on 65-02-5692JZJ4.281 uIU/mLNormal0.358-3.740 The [facility] - ColumbusComment on above:Performed By: #### TSHRFT4, LIPID, CMP #### [facility] [address] [place] [address] Dr. Rosendo WilsonVITAMIN B12on 70-18-1106Ungfkjeav (Vitamin B12) [Mass/Vol]601.0 pg/kQChjaiq714.0-986.0The [facility] ColumbusComment on above:Performed By: #### VITAD, VITB12 #### [facility] [address] [place] [address] Dr. Rosendo WilsonVITAMIN D 25 OHon 81-48-0128QJX D 25-OH44.3 ng/mLNormalThe [facility] ColumbusComment on above:Performed By: #### VITAD, VITB12 #### [facility] [address] [place] [address] Dr. Rosendo Hamilton RANGESSEE BELOWGrant HospitalComment on above: Result Comment: <20 ng/mL Vit D deficient 20 - <30 ng/mL Vit D insufficient 30 - 100 ng/mL Vit D sufficient >100 ng/mL Potential ToxicityPerformed By: #### VITAD, VITB12 #### [facility] [address] [place] [address] Dr. Rosendo WilsonHCG ( test) IA.rapid Ql (U)Ordered By: WERNER MALIK on 09-97-7024QNY ( test) Ql (U)NegativeAvita Health System TESTOSTERONE, FREE,DIRECT, TOTALon 95-89-0183Lysk Testosterone(Direct)1.1 pg/mL Normal0.0-4.2The [facility] ColumbusComment on above:Result Comment: Performed at: BNPerformed By: #### TESTFRD #### [facility] [address] [place] [address] Dr. Rosendo WilsonTestosterone [Mass/Vol]23 ng/dLNormal4-50The [facility] Comment on above:Result Comment: Performed at: CBPerformed By: #### TESTFRD #### [facility] [address] [place] [address] Dr. Rosendo WilsonINSULINon 26-62-2758Tnuhkvu99.4 uIU/mLNormal2.6-24.9The [facility] ColumbusComment on above:Performed By: #### INSULIN #### [facility] [address] [place] [address] Dr. Rosendo WilsonXR KUB 1 VIEWon 03-04-4114UD KUB 1 VIEWEXAMINATION: XR KUB 1 VIEW [...] Electronically authenticated by: WERNER BREAUX Date: 2022-04-18 07:[address] [place] [address] Vital Signs Date TimeVital SignValuePerforming GaoxnrnqxDjteranz91-58-0425 15:21-0400Body jiyttv931.1 cmVrosi Quezadaillo POT PUSHER-C Work Phone: [phone]10-30-2025 15:21-0400 Body mass index (BMI) [Ratio]27.6 kg/k5Uijkjjx Dumont POT PUSHER-C Work Phone: [phone]10-30-2025 15:21-0400 Body ufbewl61.75 kgHenok Dumont POT PUSHER-C Work Phone: [phone] [place], [place] [address]10-30-2025 15:21-0400 Diastolic blood adergzxe35 mm[Hg]Henok Dumont POT PUSHER-C Work Phone: [phone] [place], [place] [address]10-30-2025 15:21-0400 Heart rate80 /minJackierie Dumont POT PUSHER-C Work Phone: [phone] [place], [place] [address]10-30-2025 15:21-0400 Respiratory rate18 /minJackierie Dumont POT PUSHER-C Work Phone: [phone]10-30-2025 15:21-0400 SaO2% (BldA) [Mass fraction]95 %Henok Dumont POT PUSHER[employer]C Work Phone: [phone]10-30-2025 15:21-0400 Systolic blood mm[Hg]Henok Dumont POT PUSHER-C Work Phone: [phone] [place], [place] [address]10-21-2025 15:44-0400 Body .7 cmKyle Deandreirinazer SAFETY CLOTHING AND EQUIPMENT DEVELOPER-TRANSITION MGR RN Work Phone: [facility] CenterStartersFundAuburn Community Hospital10-21-2025 15:44-0400Body mass index (BMI) [Ratio]26.74 kg/m2Kyle Deandreotzer SAFETY CLOTHING AND EQUIPMENT DEVELOPER-TRANSITION MGR RN Work Phone: [facility] CenterHar[facility] Power Sbwtcd13-68-6323 15:44-0400Body jzzgibmtdyb07.81 [degF]Logan Lombardi SAFETY CLOTHING AND EQUIPMENT DEVELOPER-TRANSITION MGR RN Work Phone: [facility] CenterLead[facility] [employer]10-21-2025 15:44-0400Body iuyaqk12.74 kgLogan Lombardi SAFETY CLOTHING AND EQUIPMENT DEVELOPER-TRANSITION MGR RN Work Phone: [facility] CenterLead[facility] ([place]10-21-2025 15:44-0400Diastolic blood mm[Hg]Logan Lombardi SAFETY CLOTHING AND EQUIPMENT DEVELOPER-TRANSITION MGR RN Work Phone: [facility] CenterLead[facility] ([place]10-21-2025 15:44-0400Heart rate 83 /minLogan Messinazer SAFETY CLOTHING AND EQUIPMENT DEVELOPER-TRANSITION MGR RN Work Phone: [facility] CenterLead[facility] ([place]10-21-2025 15:44-0400 Respiratory rate18 /minLogan Lombardi SAFETY CLOTHING AND EQUIPMENT DEVELOPER-TRANSITION MGR RN Work Phone: [facility] HospitalQuantagen [facility]10-21-2025 15:44-8921HnR9% (BldA) [Mass fraction]95 %Logan Lombardi SAFETY CLOTHING AND EQUIPMENT DEVELOPER-TRANSITION MGR RN Work Phone: [facility] CenterLead[facility] ([place] [employer]10-21-2025 15:44-0400Systolic blood uhzdhced224 mm[Hg]Logan Lombardi SAFETY CLOTHING AND EQUIPMENT DEVELOPER-TRANSITION MGR RN Work Phone: [facility] Osjoji71-05-5421 15:19-0400Body mrvwxo089.2 cmAung Day Distra Work Phone: [employer] TechnologiesNorthwest Medical CenterHnltycbwqx43-77-1268 15:19-0400Body mass index (BMI) [Ratio]27.57 kg/h4PgkitAung Day DO Work Phone: [employer] TechnologiesNorthwest Medical CenterTxumcwvefh80-32-2614 15:19-0400Body ttfbeh61.83 kgAung Day Distra Work Phone: noNorthwest Medical CenterMrnxypeiaf54-95-1080 15:10-0400Body ahxjdk872 cm Henok POLK Work Phone: [facility]08-14-2025 15:10-0400 Body mass index (BMI) [Ratio]27.1 kg/q1Frqkdrh Dumont POT PUSHER-C Work Phone: [phone]08-14-2025 15:10-0400 Body eytllc68.55 kgJackierie Dumont POT PUSHER-C Work Phone: [facility]08-14-2025 15:10-0400 Diastolic blood xrilgqyw67 mm[Hg]Henok Quezadaillo POT PUSHER-C Work Phone: [phone]08-14-2025 15:10-0400 Heart rate85 /minJackierie Dumont POT PUSHER-C Work Phone: [phone] [place], [place] 6094608-14-2025 15:10-0400 Respiratory rate18 /minJackierie Dumont POT PUSHER-C Work Phone: [phone] [place], [place] 6[address]608-14-2025 15:10-0400 SaO2% (BldA) [Mass fraction]97 %Henok Dumont POT PUSHER-C Work Phone: [phone]08-14-2025 15:10-0400 Systolic blood nbicksme435 mm[Hg]Henok Quezadaillo POT PUSHER-C Work Phone: [phone]07-31-2025 15:19-0400 Body knmdye792.2 cmAung [employer] DO Work Phone: [phone] HospitalAjpqforogo07-10-9604 15:19-0400Body mass index (BMI) [Ratio]27.57 kg/z5Wcwhm Brown DO Work Phone: [phone] HospitalYhqzrxzlhs09-98-9163 15:19-0400Body rebjoh83.83 kgAung Day DO Work Phone: [facility] HospitalRnetejsnmm54-79-1329 15:43-0400Body ogxpwh114.21 cmVrosi Quezadaillo POT PUSHER-C Work Phone: [facility]06-17-2025 15:43-0400 Body mass index (BMI) [Ratio]27.3 kg/f3Xdfeydu Dumont POT PUSHER-C Work Phone: [facility]06-17-2025 15:43-0400 Body buiakd89.05 kgHenok Dumont POT PUSHER-C Work Phone: [phone]06-17-2025 15:43-0400 Diastolic blood cnqzacur02 mm[Hg]Henok Dumont POT PUSHER-C Work Phone: [phone]06-17-2025 15:43-0400 Heart rate76 /minHenok Quezadaillo POT PUSHER-C Work Phone: [phone]06-17-2025 15:43-0400 Respiratory rate18 /minHenok Quezadaillo POT PUSHER-C Work Phone: [phone]06-17-2025 15:43-0400 SaO2% (BldA) [Mass fraction]96 %Henok Dumont POT PUSHER-C Work Phone: [phone]06-17-2025 15:43-0400 Systolic blood aekgwjdz028 mm[Hg]Henok Dumont POT PUSHER-C Work Phone: [facility]06-04-2025 15:43-0400 Body qnxevn929.7 cmAdeliaholly Vegas DO Work Phone: [facility]06-04-2025 15:43-0400Body mass index (BMI) [Ratio]26.92 kg/m2Franco Yusergios DO Work Phone: [facility]06-04-2025 15:43-0400Body tyyxecspsqk00.7 [degF]Franco Garys DO Work Phone: [facility] Yzplpk79-38-2620 15:43-0400Body nyhmnr48.29 kgFranco Valariehas DO Work Phone: [facility]06-04-2025 15:43-0400Diastolic blood hngondjg22 mm[Hg]Franco Kingstonsergios DO Work Phone: [facility]06-04-2025 15:43-0400Heart rate 84 /Juan Whitmore DO Work Phone: [facility]06-04-2025 15:43-0400 Respiratory rate18 /Juan Whitmore DO Work Phone: [facility]06-04-2025 15:43-3949QhH2% (BldA) [Mass fraction]98 %Franco Whitmore DO Work Phone: [facility]06-04-2025 15:43-0400Systolic blood dthyflli825 mm[Hg]Franco Whitmore DO Work Phone: [facility]04-22-2025 15:16-0400Body ewowzt983.41 cmAvita Health System04-22-2025 15:16-0400Body mass index (BMI) [Ratio]27.8 kg/p5EovzhmgfmAvita Health System04-22-2025 15:16-0400Body .05 kgAvita Health System04-22-2025 15:16-0400Diastolic blood kstaouvl76 mm[Hg][facility] 10-08-2024 15:16-0400Heart rate78 /[facility] 10-08-2024 15:16-0400Respiratory rate18 /[facility] 10-08-2024 15:16-5925CoM8% (BldA) [Mass fraction]96 %[facility]04-22-2025 15:16-0400Systolic blood mm[Hg][facility]02-24-2025 15:22-0500Body mass index (BMI) [Ratio]27.72 kg/m2 Tsering Velez MD Work Phone: [facility] HospitalClpfscikie90-98-3846 15:22-0500Body .29 kgTsering Velez MD Work Phone: [facility] HospitalAinulllibz74-87-1844 15:22-0500Diastolic blood hwcdnzin98 mm[Hg]Tsering Velez MD Work Phone: [facility] HospitalKfrcsawwpz69-89-7270 15:22-0500Systolic blood ovqfwcku041 mm[Hg]Tsering Velez MD Work Phone: [facility] HospitalDjpbduagqa22-30-7689 15:15-0500Body yjbphw378.72 cmAvita Health System02-18-2025 15:15-0500Body mass index (BMI) [Ratio]27.2 kg/z0SjcdzpifnAvita Health System02-18-2025 15:15-0500Body klvqfu38.3 kgAvita Health System02-18-2025 15:15-0500Diastolic blood illmklfk93 mm[Hg][facility]02-18-2025 15:15-0500 Heart rate89 /[facility]02-18-2025 15:15-0500 Respiratory rate18 /[facility]02-18-2025 15:15-0500 SaO2% (BldA) [Mass fraction]96 %[facility]02-18-2025 15:15-0500Systolic blood mrfsuboj345 mm[Hg][facility] 06-10-2024 14:09-0500Body aydzvu565.72 cmAvita Health System 06-10-2024 14:09-0500Body mass index (BMI) [Ratio]26.7 kg/x5DtdnktprtAvita Health System12-23-2024 14:09-0500Body lctcey65.83 kgAvita Health System12-23-2024 14:09-0500Diastolic blood mm[Hg][facility]12-23-2024 14:09-0500Heart rate99 /[facility]12-23-2024 14:09-0500Respiratory rate18 /[facility]12-23-2024 14:09-3709AgU2% (BldA) [Mass fraction]95 %[facility]12-23-2024 14:09-0500Systolic blood mm[Hg][facility]12-05-2024 15:05-0500Blood Pressure LocationJEBERNARDA LAZ [facility]12-05-2024 15:05-0500Body eiokcuzehbx82.6 [degF]JOSELYN HAYES [facility]12-05-2024 15:05-0500Diastolic blood ickgdkej61 mm[Hg]JOSELYN HAYES [facility]12-05-2024 15:05-0500Heart rate78 /minJENNIFER LAZ [facility]12-05-2024 15:05-0500Respiratory rate18 /minJENNIFER LAZ [facility]12-05-2024 15:05-0500Systolic blood wxkgukfx544 mm[Hg]JOSELYN HAYES [facility]11-14-2024 15:24-0500Body qbyboh413.72 cmAvita Health System11-14-2024 15:24-0500Body mass index (BMI) [Ratio]27 kg/l9EntgaotvnAvita Health System11-14-2024 15:24-0500Body lhyqzb41.73 kgAvita Health System11-14-2024 15:24-0500Diastolic blood nrlcdnuo45 mm[Hg] [facility]11-14-2024 15:24-0500Heart rate85 /[facility]11-14-2024 15:24-0500Respiratory rate18 /[facility]11-14-2024 15:24-3809WfS4% (BldA) [Mass fraction]95 % [facility]11-14-2024 15:24-0500Systolic blood qdnapzkr840 mm[Hg][facility]10-17-2024 15:29-0400Body ogcjbx927.7 cm Henok Dumont SAFETY CLOTHING AND EQUIPMENT DEVELOPER-TRANSITION MGR RN Work Phone: [facility]10-17-2024 15:29-0400Body mass index (BMI) [Ratio]26.94 kg/r3JdsdvruHenok Dumont APRN-TRANSITION MGR RN Work Phone: [facility]10-17-2024 15:29-0400Body nxqpufvvpba49.2 [degF]Henok Dumont APRN-TRANSITION MGR RN Work Phone: [facility]10-17-2024 15:29-040Body sceaap20.38 kgHenok Dumont APRN-TRANSITION MGR RN Work Phone: [facility]10-17-2024 15:29-0400Diastolic blood cxlraeni54 mm[Hg]Henok Dumont APRN-TRANSITION MGR RN Work Phone: [facility]10-17-2024 15:29-0400Heart rate 85 /minHenok Dumont APRN-TEJAL Work Phone: [facility]10-17-2024 15:29-0400 Respiratory rate18 /minHenok Dumont APRN-TEJAL Work Phone: [facility]10-17-2024 15:29-5691LzZ4% (BldA) [Mass fraction]97 %Henok Dumont APRN-TRANSITION MGR RN Work Phone: [facility]10-17-2024 15:29-0400Systolic blood pemywudq426 mm[Hg]Henok Dumont APRN-TRANSITION MGR RN Work Phone: [facility]09-19-2024 15:08-0400Body ggzyjd570.72 cmAvita Health System09-19-2024 15:08-0400Body mass index (BMI) [Ratio]26.9 kg/j2SonafxojiAvita Health System09-19-2024 15:08-0400Body fiavpm92.45 kgAvita Health System09-19-2024 15:08-0400Diastolic blood dwlbxkyt51 mm[Hg][facility] 03-07-2024 15:08-0400Heart rate92 /[facility] 03-07-2024 15:08-0400Respiratory rate18 /[facility] 03-07-2024 15:08-3768DcL3% (BldA) [Mass fraction]96 %[facility]09-19-2024 15:08-0400Systolic blood ykemhxzn759 mm[Hg][facility]07-25-2024 14:41-0400Body nquqcx782.72 cmAvita Health System07-25-2024 14:41-0400Body mass index (BMI) [Ratio]27.1 kg/m2 [facility]07-25-2024 14:41-0400Body gakrfs55.82 kg [facility]07-25-2024 14:41-0400Diastolic blood byijyznc84 mm[Hg][facility]07-25-2024 14:41-0400Heart rate85 /min [facility]07-25-2024 14:41-0400Respiratory rate18 /min [facility]07-25-2024 14:41-6091AwV8% (BldA) [Mass fraction]95 %[facility]07-25-2024 14:41-0400Systolic blood nrpelbcl055 mm[Hg][facility]06-12-2024 14:22-0400 Body uqryaj665.7 cmVcbeduardo QuezadaDumontquincy HO-TRANSITION MGR RN Work Phone: [facility]06-12-2024 14:22-0400Body mass index (BMI) [Ratio]27.84 kg/s2Mbldcsu Tim SAFETY CLOTHING AND EQUIPMENT DEVELOPER-TRANSITION MGR RN Work Phone: [facility]06-12-2024 14:22-0400Body fuudpbgupen31.01 [degF]Henok Tim SAFETY CLOTHING AND EQUIPMENT DEVELOPER-TRANSITION MGR RN Work Phone: [facility]06-12-2024 14:22-0400Body qzgupy96.05 kgValerie Dumont SAFETY CLOTHING AND EQUIPMENT DEVELOPER-TRANSITION MGR RN Work Phone: [facility]06-12-2024 14:22-0400Diastolic blood zfxettjo13 mm[Hg]Henok Dumont APRN-TRANSITION MGR RN Work Phone: [facility]06-12-2024 14:22-0400Heart rate 95 /minHenok Dumont APRN-TRANSITION MGR RN Work Phone: [facility]06-12-2024 14:22-0400 Respiratory rate18 /minHenok Dumont APRN-TRANSITION MGR RN Work Phone: [facility]06-12-2024 14:22-4574HmS7% (BldA) [Mass fraction]95 %Henok Dumont APRN-TEJAL Work Phone: [facility]06-12-2024 14:22-0400Systolic blood mm[Hg]Henok Dumont APRN-TEJAL Work Phone: [facility]06-04-2024 16:02-0400Heart rate 98 /[facility]06-04-2024 15:32-0400Body fukday758.72 cm[facility]06[facility] 15:32-0400Body mass index (BMI) [Ratio]27.8 kg/t4EiqregaqlAvita Health System06-04-2024 15:32-0400Body pnuohk46.09 kgAvita Health System06-04-2024 15:32-0400Diastolic blood ykawcsvu46 mm[Hg][facility]06-04-2024 15:32-0400 Respiratory rate18 /[facility]06-04-2024 15:32-0400 SaO2% (BldA) [Mass fraction]93 %[facility]06-04-2024 15:32-0400Systolic blood zylwgkvk065 mm[Hg][facility] 10-10-2023 15:42-0400Body nnhpin621.72 cmAv[facility] 10-10-2023 15:42-0400Body mass index (BMI) [Ratio]29.5 kg/a7EpjfgrvefAvita Health System04-23-2024 15:42-0400Body arakxh18.22 kgAvita Health System04-23-2024 15:42-0400Diastolic blood aufqiifc41 mm[Hg][facility]04-23-20[facility] 15:42-0400Heart rate71 /[facility]04-23-20[facility] 15:42-0400Respiratory rate18 /[facility]04-23-2024 15:42-7010FeS0% (BldA) [Mass fraction]98 %[facility]04-23-2024 15:42-0400Systolic blood pcqayucq289 mm[Hg][facility]02-20-2024 15:10-0500Body xnifvl850.72 cmDO Musa Evangelista Work Phone: [phone]-[facility]02-20-2024 15:10-0500 Body mass index (BMI) [Ratio]28.1 kg/m2DO Musa Evangelista Work Phone: [phone]-[facility]02-20-2024 15:10-0500 Body vsjkci72.91 kgDO Musa Evangelista Work Phone: [facility]02-20-2024 15:10-0500 Diastolic blood wigunvsn72 mm[Hg]DO Musa Evangelista Work Phone: [facility]02-20-2024 15:10-0500 Heart rate96 /ShirinGwen Musa Jean Carlos Work Phone: [facility]02-20-2024 15:10-0500 Respiratory rate18 /ShirinGwen Vigil Jean Carlos Work Phone: [facility]02-20-2024 15:10-0500 SaO2% (BldA) [Mass fraction]95 %DO Musa Jean Carlos Work Phone: [facility]02-20-2024 15:10-0500 Systolic blood ihovvsxe083 mm[Hg]DO Musajon Evangelista Work Phone: [phone] [place], [place] 1731501-19-2024 15:51-0500 Body iubvjkqjnxa96 [degF]DO Musa Evangelista Work Phone: [phone]01-19-2024 15:51-0500 Diastolic blood rxroxfzt81 mm[Hg]DO Musa Evangelista Work Phone: [phone]01-19-2024 15:51-0500 Heart rate86 /Ani Evangelista Work Phone: [phone]01-19-2024 15:51-0500 Respiratory rate20 /Ani Evangelista Work Phone: [phone]01-19-2024 15:51-0500 SaO2% (BldA) [Mass fraction]93 %DO Musa Evangelista Work Phone: [phone]01-19-2024 15:51-0500 Systolic blood fsqhybyo92 mm[Hg]DO Musa Evangelista Work Phone: [phone]01-19-2024 12:05-0500 Inhaled oxygen flow rate2 L/Ani Evangelista Work Phone: [phone]01-19-2024 07:26-0500 Body dwryal970.72 cmDO Musa Evangelista Work Phone: [phone]01-19-2024 07:26-0500 Body mass index (BMI) [Ratio]28.8 kg/m2DO Musa Evangelista Work Phone: [phone] [place], [place] 1731501-19-2024 07:26-0500 Body jeogqc64.8 kgDO Musa Evangelista Work Phone: [phone] [place], [place] 1731512-26-2023 09:45-0500 Body pkongs078.72 cmDemilagrosremy Linda Other [facility]12-26-2023 09:45-0500 Body mass index (BMI) [Ratio]28.4 kg/h2Souberj Scally Other [email or web address] Other 12-26-2023 09:45-0500Body qboznc55.73 kgDeborah Scally Other [facility]12-26-2023 09:45-0500 Diastolic blood swdbjybc07 mm[Hg]Viktoria Scally Other [facility]12-26-2023 09:45-0500 Respiratory rate18 /minDeborah Scally Other [employer] Other 12-26-2023 09:45-0943WrJ1% (BldA) [Mass fraction]95 % Viktoria Scally Other [employer] Other 12-26-2023 09:45-0500Systolic blood mm[Hg] Viktoria Scally Other [facility]10-30-2023 15:30-0400 Body wqmxeq348.72 cmDeborah Scally Other [employer] Other 10-30-2023 15:30-0400Body mass index (BMI) [Ratio]29.4 kg/t3Ihcbixw Scally Other [employer] Other 10-30-2023 15:30-0400Body foisla38.73 kgDeborah Scally Other [employer] Other 10-30-2023 15:30-0400Diastolic blood abbsqabv56 mm[Hg] Viktoria Scally Other [employer] Other 10-30-2023 15:30-0400Respiratory rate18 /minDeborah Scally Other [email or web address] Other 10-30-2023 15:30-7266LlI6% (BldA) [Mass fraction]95 % Viktoria Scally Other [email or web address] Other 10-30-2023 15:30-0400Systolic blood miiglgno797 mm[Hg] Viktoria Scally Other [employer] Other 08-30-2023 15:00-0400Body lhclgi067.72 cmDeborah Grecialy Other [employer] Other 08-30-2023 15:00-0400Body mass index (BMI) [Ratio] 30.71 kg/j5Qcgfbth Grecialy Other [employer] Other 08-30-2023 15:00-0400Body tyoqre60.63 kgDeborah Grecialy Other [employer] Other 08-30-2023 15:00-0400Diastolic blood yxpojyty18 mm[Hg] Viktoria Scally Other [employer] Other 08-30-2023 15:00-0400Respiratory rate18 /minDeborah Scally Other [employer] Other 08-30-2023 15:00-5231KgO1% (BldA) [Mass fraction]94 % Viktoria Scally Other [employer] Other 08-30-2023 15:00-0400Systolic blood nwaeovlh515 mm[Hg] Viktoria Scally Other [email or web address] Other 08-28-2023 15:15-0400Body ritjbe247.72 cmDawn Fitt Other [email or web address] Other 08-28-2023 15:15-0400Body mass index (BMI) [Ratio] 30.76 kg/m2Dawn Fitt Other [employer] Other 08-28-2023 15:15-0400Body .76 kgDawn Fitt Other [employer] Other 07-11-2023 15:00-0400Body nzdaoi585.72 cmDeborah Scally Other [employer] Other 07-11-2023 15:00-0400Body mass index (BMI) [Ratio] 30.91 kg/i0Ynmejtq Scally Other [employer] Other 07-11-2023 15:00-0400Body mgondv88.22 kgDeborah Scally Other [employer] Other 07-11-2023 15:00-0400Diastolic blood elsdejuj50 mm[Hg] Viktoria Scally Other [employer] Other 07-11-2023 15:00-0400Respiratory rate18 /minDeborah Scally Other [employer] Other 07-11-2023 15:00-9980LvS4% (BldA) [Mass fraction]95 % Viktoria Scally Other [facility] [employer] Other 07-11-2023 15:00-0400Systolic blood dxdafwdf812 mm[Hg] Viktoria [place] Other [facility] [employer] Other [id number] 11:13-0500Diastolic blood haopcqag83 mm[Hg] DO Musa Evangelista Work Phone: [facility]02-10-2023 11:13-0500 Heart rate76 /Ani Evangelista Work Phone: [phone]-[facility]02-10-2023 11:13-0500 Respiratory rate16 /Ani Evangelista Work Phone: [phone])210-[facility]02-10-2023 11:13-0500 SaO2% (BldA) [Mass fraction]93 %DO Musa Evangelista Work Phone: [phone]-[facility]02-10-2023 11:13-0500 Systolic blood nmctlgyw742 mm[Hg]DO Musa Evangelista Work Phone: [phone]-[facility] System[facility]02-10-2023 10:17-0500 Body vmmhos195.72 cmDO Musa Evangelista Work Phone: [phone]-[facility]02-10-2023 10:17-0500 Body mass index (BMI) [Ratio]27.4 kg/m2DO Musa Evangelista Work Phone: [phone]-[facility]02-10-2023 10:17-0500 Body xsqejt11 kgDO Musa Evangelista Work Phone: [phone]-[facility]02-10-2023 08:56-0500 Body efaihzodyuj90.3 [degF]DO Musa Evangelista Work Phone: [facility]11-09-2022 15:11-0500 Blood Pressure LocationJENNBANNER LAZ [facility]11-09-2022 15:11-0500Diastolic blood xlvjruql24 mm[Hg]JOSELYN HAYES [facility]11-09-2022 15:11-0500Heart rate72 /minJOSELYN HAYES [facility]11-09-2022 15:11-0500Systolic blood nptuhclv163 mm[Hg]JOSELYN HAYES [facility] Encounters Encounter DateEncounter TypeCare ProviderFacilityStart: 04-17-2025 End: 31-37-4039arxsaulzjgTocgppz J Castillo NP-C Work Phone: [phone]-IYEIFlwgi: 04-17-2025 End: 10-59-2447Rxfzaph encounter procedureDematt Birmingham SAFETY CLOTHING AND EQUIPMENT DEVELOPER-[employer] Work Phone: Start: 04-08-2025 End: 27-25-4588Kseiaqp encounter statusKymikey Lombardi SAFETY CLOTHING AND EQUIPMENT DEVELOPER-TRANSITION MGR RN Work Phone: [facility] CenterHarvest Power SystemStart: 04-08-2025 End: 60-46-3502Rozjkfxh preventive med est patient 40-64yrsKyle Joy Lombardi SAFETY CLOTHING AND EQUIPMENT DEVELOPER-TRANSITION MGR RN Work Phone: [facility] - Family MedicineComment on above:Adult wellness visit (Primary Dx); Blood tests for routine general physical examination; Screening for diabetes mellitusStart: 04-08-2025 End: 11-38-8495Cildkikw examinationKyle Joy Lombardi SAFETY CLOTHING AND EQUIPMENT DEVELOPER-TRANSITION MGR RN Work Phone: [facility] CenterHarvest Power SystemStart: 04-02-2025 End: 99-14-4535AjyyiyMdxu Joy Lombardi SAFETY CLOTHING AND EQUIPMENT DEVELOPER-TRANSITION MGR RN Work Phone: [facility] - Family MedicineComment on above:Degenerative tear of lateral meniscus, leftStart: 03-18-2025 End: 85-99-6202qzwgygpceyTTBWS A BROWNNot AvailableStart: 03-18-2025 End: 42-42-6942Vvtjgbm encounter procedureAung Emily Dontrell DO Work Phone: [facility] [place] Access OrthopaedicsComment on above:Left knee pain, unspecified chronicityStart: 03-18-2025 End: 05-38-9887Nbvyur flowsheetAung Diaz Brown DO Work Phone: [facility] [place] [facility] OrthopaedicsStart: 03-18-2025 End: 22-89-4993Hrpmvx flowsheetAung Day DO Work Phone: [facility] [place] Access OrthopaedicsStart: 03-04-2025 End: 32-91-5968ThejuqCipk L Edgar DO Work Phone: [facility] - Family MedicineComment on above:Degenerative tear of lateral meniscus, leftStart: 02-04-2025 End: 26-97-9173TugojhXhpy L Yukarine DO Work Phone: [facility] - Family MedicineComment on above:Degenerative tear of lateral meniscus, leftStart: 01-30-2025 End: 38-27-8883kvthdplkblPkjdrxpAnurag POLK Work Phone: [facility] Work Phone: Start: 01-30-2025 End: 73-29-4270Ofiubnz encounter procedureViktoria Birmingham APRNEW [facility] Work Phone: Start: 01-16-2025 End: 27-95-4037Oqlwvel encounter procedureAung Day DO Work Phone: [facility] [place] OrthopaedicsComment on above:Left knee pain, unspecified chronicity (Primary Dx)Start: 01-16-2025 End: 49-88-3018qpakkrswzaDVXMM A BROWNNot AvailableStart: 01-16-2025 End: 39-45-3284hkhrswlspeWMALZ A BROWNNot AvailableStart: 01-14-2025 End: 80-36-5012brxibcrpzjZXELMPD J CASTILLOFacility:EU [place]kyStart: 01-14-2025 End: 78-22-3002Lokovvx encounter procedurePatricmarcus ESPARZA [facility] [place] Start: 01-08-2025 End: 04-14-6303micjwmltnqEuclhhl Kelbley PTANOMS CI PTComment on above:Acute pain of left knee (Primary Dx)Start: 01-08-2025 End: 14-89-1936Qktunt flowsheetMelissa Kelbley PTANOMS CI PTStart: 01-08-2025 End: 02-88-4780Aelixr flowsheetMelissa Kelbley PTANOMS CI PTStart: 12-30-2024 End: 86-39-5672vwtnoftrqdJkzqyv T Blackston PT Work Phone: noms CI PTComment on above:Acute pain of left knee (Primary Dx)Start: 12-30-2024 End: 39-82-9235Erikdg Emerald Rausch PT Work Phone: n[facility] CI PTStart: 12-30-2024 End: 58-84-4689Lmwaro Emerald Rausch PT Work Phone: n[facility] CI PTStart: 12-16-2024 End: 26-25-7352gaegwijsrmVculzdgz Brink PTANOMS CI PTComment on above:Acute pain of left knee (Primary Dx)Start: 12-16-2024 End: 75-75-2572Ienzos flowsheetMarshall Brink PTANOMS CI PTStart: 12-16-2024 End: 03-51-2602Nnudgr flowsheetMarshall Brink PTANOMS CI PTStart: 12-12-2024 End: 98-16-5266ccrftskoydWklaxrz Kelbley PTANOMS CI PTComment on above:Acute pain of left knee (Primary Dx)Start: 12-12-2024 End: 34-96-2244Aoqswe flowsheetMelissa Kelbley PTANOMS CI PTStart: 12-12-2024 End: 22-08-8902Bwmujh flowsheetMelissa Kelbley PTANOMS CI PTStart: 12-10-2024 End: 68-88-1357xhtpslctjnNefvmmn Kelbley PTANOMS CI PTComment on above:Acute pain of left knee (Primary Dx)Start: 12-10-2024 End: 94-16-4078Sdemvo flowsheetMelissa Kelbley PTANOMS CI PTStart: 12-10-2024 End: 45-41-6201Olzzas flowsheetMelissa Kelbley PTANOMS CI PTStart: 12-05-2024 End: 42-25-4501xjsvvmvlogYsprmus Kelbley PTANOMS CI PTComment on above:Acute pain of left knee (Primary Dx)Start: 12-05-2024 End: 55-84-8670Lmrakz flowsheetMelissa Kelbley PTANOMS CI PTStart: 12-05-2024 End: 54-03-2204Apolji flowsheetMelissa Kelbley PTANOMS CI PTStart: 12-03-2024 End: 87-40-8066Zhlkjrh encounter procedureViktoria Birmingham [facility] Work Phone: Start: 11-28-2024 End: 59-69-7910wivohnaanxTfeoeg T Blackston PT Work Phone: noMS CI PTComment on above:Acute pain of left knee (Primary Dx)Start: 11-28-2024 End: 20-20-5380Nxcomw Emerald Rausch PT Work Phone: noMS CI PTStart: 11-28-2024 End: 70-43-3314Ogorwz Emerald Rausch PT Work Phone: noMS CI PTStart: 11-25-2024 End: 59-72-5618ceakzygzxwEAPEOTZ CASTILLOFacility:EU [place]vueStart: 11-25-2024 End: 09-57-3289Hiuhhen encounter procedureMarshall ESPARZA [facility] Mihir start: 11-20-2024 End: 86-30-1451Jvarlg outpatient visit 25 minutesJoholly Whitmore DO Work Phone: [facility] - Family MedicineComment on above:Degenerative tear of lateral meniscus, left (Primary Dx); Herpes zoster without complicationStart: 10-08-2024 End: 01-42-8586ujaxpxlxwwMsikppawuCleveland Clinic Foundation Work Phone: Start: 10-08-2024 End: 31-71-6036Vjdmllu [facility]Central [facility] Work Phone: Start: 09-11-2024 End: 00-02-6418xzryosjvqcPankpw GhazoulFacility:BMSStart: 09-08-2024 End: 00-43-8753LpemnmIjtgami J Castillo APRN-[facility] Work Phone: [facility] - Family MedicineComment on above:Postoperative hypothyroidismStart: 08-12-2024 End: 49-26-2351Myrheba encounter statusTsering Velez MD Work Phone: noms HealthcareStart: 08-12-2024 End: 64-15-0880Htfqxtvk preventive med est patient 40-64yrsPenola Guanakito Velez MD Work Phone: [facility] OBComment on above:Encounter for screening for cervical cancer (Primary Dx); Encounter for gynecological examination without abnormal finding; Hx of hysterectomyStart: 08-12-2024 End: 13-64-7104rnkfsfkwdbEBWYVV P JONESNot AvailableStart: 08-06-2024 End: 02-78-3792xrwgcblzcsVbdmsrbrbCleveland Clinic Foundation Work Phone: Start: 08-06-2024 End: 05-40-0251Lafvrse encounter procedureFircarilion clinic Physician GroupSA[facility]NABAS [facility] Work Phone: Start: 06-10-2024 End: 12-98-4107Veiedzy encounter procedureCentral [facility]arnett Hospital Phys[facility] GroupSA[facility]NA[facility] Work Phone: Start: 05-23-2024 End: 46-28-3919Hos Drop offJEPONCEIFER E LAZ [facility] Start: 05-23-2024 End: 62-13-8178nvffpspogoWG- JOSELYN Clark PERRYFacility:EU [place]vueStart: 05-23-2024 End: 61-61-8423Cqibmud encounter procedureJENNIFER E LAZ [facility] start: 81-45-0053Jgz-patient / Non-visitMendozacarilion clinic Physician [facility] Work Phone: Start: 05-02-2024 End: 97-18-7676okonuqktveFbprzkmfnLicking Memorial Hospital Work Phone: Start: 05-02-2024 End: 44-17-2546Qjrfhos encounter procedureCentral [facility] Work Phone: Start: 04-04-2024 End: 55-68-1315Oliijwb encounter procedureHenok Dumont APRN-TRANSITION MGR RN Work Phone: [facility] CenterStartersFundBerger Hospital Smadextart: 04-04-2024 End: 94-74-8166Dxpybiml preventive med est patient 40-64yrsValenazia Dumont APRN-TRANSITION MGR RN Work Phone: [facility] - Family MedicineComment on above:Annual physical exam (Primary Dx); Blood tests for routine general physical examinationStart: 04-04-2024 End: 46-26-7641Lkkfiosd examinationHenok Dumont APRN-TRANSITION MGR RN Work Phone: [facility] CenterStartersFundA[facility] Work Phone: Start: 03-07-2024 End: 37-53-0516fbcldnkoniHuzkfwotoLicking Memorial Hospital Work Phone: Start: 03-07-2024 End: 70-33-4448Cwseymy encounter procedureCentral [facility] Work Phone: Start: 01-11-2024 End: 17-59-4224haliavyumaCitdglfhdLicking Memorial Hospital Work Phone: Start: 01-11-2024 End: 46-37-8040Jhrvffa encounter procedureCentral [facility] Work Phone: Start: 11-29-2023 End: 73-57-8165Xqwmbz outpatient new 30 minutesHenok Dumont APRNMASSACHUSETTS GENERAL [facility] Work Phone: [facility] - Family MedicineComment on above:Postoperative hypothyroidism (Primary Dx); Mixed hyperlipidemia; Anxiety and depressionStart: 11-21-2023 End: 34-55-6305xlmkovijfxAdduluthyLicking Memorial Hospital Work Phone: Start: 11-21-2023 End: 17-51-9168Nymxwty encounter procedureCentral [facility] Work Phone: Start: 11-07-2023 End: 01-84-4610Ios Drop offJOSELYN Clark LAZ [facility] Start: 11-07-2023 End: 39-50-8684dlkcfkvairBG-C JENNIFER E PERRYFacility:FTMCStart: 11-07-2023 End: 08-12-6111Kcyzlzq encounter procedureJENNIFER E LAZ [facility] start: 23-62-6748mzicivyojlWeztiup R WATERSFacility:EU [place]kyStart: 10-10-2023 End: 70-67-4144lxqrnxenpbMndqqzxtlLicking Memorial Hospital Work Phone: Start: 10-10-2023 End: 37-63-3527Vwsexrf encounter procedureCentral Harnett Hospital Physician GroupSAINT BARNABAS [facility] Work Phone: Start: 09-26-2023 End: 83-31-6129Bvd Drop offMarshall ESPARZA [facility] Start: 09-26-2023 End: 43-94-5853mryrytzvyzQilvgfh R WATERSFacility:FTMCStart: 09-26-2023 End: 53-12-5036Tnziwje encounter procedureMarshall ESPARZA [facility] start: 08-22-2023 End: 60-26-0312zglcmygypjKpvihlr R WATERSFacility:FTMCStart: 08-21-2023 End: 68-57-5185rtzsfnlcguOwittmb R WATERSFacility:EU [place]vueStart: 08-21-2023 End: 03-56-1956Svniwlr encounter procedureMarshall ESPARZA [facility] start: 82-19-0074oespeknaoqPASidney HAYES Facility:EU [place]vueStart: 08-08-2023 End: 71-79-9009dczduhrnzdFL Musa Evangelista Work Phone: [facility] Work Phone: Start: 08-08-2023 End: 80-89-8180Qffmmtb encounter procedureDO Musa Evangelista Work Phone: [facility] Work Phone: Start: 07-21-2023 End: 17-64-9416uvolwyissnZsxe Fitt Other [place] [employer] Other Start: 56-12-5257Cfstpdgwp encounterDawn IssaBay Area Hospital Coordinated Care ClinicStart: 07-17-2023 End: 41-72-7278ymennvakxoNatz Fitt Other [place] [employer] Other Start: 08-60-1516Vbxkxtznl encounterDawn [facility] Coord[facility] Care ClinicStart: 07-07-2023 End: 26-38-0881Ljcuvwvhu to same day surgery centerDO Musa Evangelista Work Phone: [facility] HospitalStart: 07-07-2023 End: 87-87-9135nnxicesqroET Steven Jackson Work Phone: [facility] Work Phone: Start: 06-22-2023 End: 17-03-5936Qpsnwlj encounter procedureDO Musa Evangelista Work Phone: [facility] Jmn-Jse-Abfwkkly Testing Work Phone: Start: 06-22-2023 End: 30-32-1856zocqnoxcskYF Steven Jackson Work Phone: [facility] Work Phone: Start: 06-20-2023 End: 37-70-8733qizmoewtyfZstkmcs R WATERSFacility:EU [place]kyStart: 06-20-2023 End: 90-06-5303Dqxmvvv encounter procedureMarshall ESPARZA [facility] [place] Start: 06-13-2023(FCCCWMNF/U) Weight Management f/u Viktoria Dodson Coord[facility] Care ClinicStart: 06-13-2023 End: 17-05-9616ybqcybohcxOmhutem C TopChalksSt. George Regional [email or web address].com Other Start: 29-54-1669Dkuptnpaxd RecurringDO Musa Evangelista Work Phone: [facility]-Weight Management Work Phone: Start: 06-13-2023 End: 14-22-9269Fqgbgwo encounter procedureDO Musa Evangelista Work Phone: [facility] Work Phone: Start: 04-17-2023([facility]ENTERWMNF/U) Weight Management f/u Viktoria ScallyFirelands Coordinated Care ClinicStart: 04-17-2023 End: 81-25-8982aeypyocgynSsluuct Grecialy Other [email or web address] Other Start: 04-17-2023 End: 82-74-0286Ueencqr encounter procedureDO Musa Evangelista Work Phone: [facility] Work Phone: Start: 02-15-2023([facility] CENTERWMNF/U) Weight Management f/u Viktoria ScallyFirelands Coordinated Care ClinicStart: 02-15-2023 End: 54-51-4524xftlrucbskVhwixal Grecialy Other [email or web address] Other Start: 02-13-2023([facility] WMNI) WMN Initial ProviderDawn Trupti Coordinated Care ClinicStart: 02-13-2023 End: 41-25-8458ylogkuobqrCtpf Deion Other [email or web address] Other Start: 01-25-2023 End: 97-61-9074vvuwnnkakgGowndbk Grecialy Other [email or web address] Other Start: 64-48-8689Eomsqkchp encounterDeProvidence VA Medical Center Coordinated Care ClinicStart: 12-27-2022([facility] CENTERWMNF/U) Weight Management f/uDeborah ScallyFirelands Coordinated Care ClinicStart: 12-27-2022 End: 84-48-6373yusvkzbyniKdipxzv Scally Other [facility] [employer] Other Start: 12-15-2022 End: 47-60-8383fybdmsqnznOephkdd Scally Other [facility] [employer] Other Start: 77-78-8475Ojyoxmnpr encounterAdamcolumbia basin hospital GreciaHelen De[facility] Coordinated Care ClinicStart: 11-11-2022 End: 49-52-8833bxdssoguzlFAIZYQS SCALLYFacility:N8Ubjea: 07-29-2022 End: 50-69-7235Juxfskyox to same day surgery [place]DO Musa Evangelista Work Phone: [facility] SystemStart: 07-29-2022 End: 88-71-6081nmdvbalazuSR Steven Jackson Work Phone: [facility] Work Phone: Start: 04-27-2022 End: 75-60-6310Zxm Drop offJEBERNARDA ALVAREZRY [facility] Start: 04-27-2022 End: 84-15-5025Rcxfvun encounter procedureJENNIFER E LAZ [facility] [place] start: 04-16-2022 End: 81-89-4231ptfvslokkyYZ STEVEN JACKSONFacility:T1Hvhel: 59-28-6341geimguvtzb DR MUSA EVANGELISTAFacility:H1 Procedures DateProcedureProcedure DetailPerforming ClinicianStart: 37-11-9545Jynwfjaapo glycosylated m5rLqer Joy Lombardi SAFETY CLOTHING AND EQUIPMENT DEVELOPER-TRANSITION MGR RN Work Phone: Start: 29-74-0541Pwecq depression screening assessment Logan Lombardi SAFETY CLOTHING AND EQUIPMENT DEVELOPER-TRANSITION MGR RN Work Phone: Start: 55-93-8531Utmljejfmjamqk aspir&/inj major jt/bursa w/o Teena Day DO Work Phone: Start: 71-39-5354Sxwyxdkuehgmng aspir&/inj major jt/bursa w/o Teena Day DO Work Phone: Start: 93-46-9545Ggkztgeiaq examination knee 3 views Aung Day DO Work Phone: Start: 77-69-3598Encio depression screening assessment Franco Whitmore DO Work Phone: Start: 62-44-0732Asaygxzd totalStart: 16-80-5875Qoyea depression screening assessmentNormaeduardo QuezadaDumont SAFETY CLOTHING AND EQUIPMENT DEVELOPEREncore Vision Inc.TRANSITION MGR RN Work Phone: Start: 19-40-4300Qmkmj depression screening assessment Henok Dumont SAFETY CLOTHING AND EQUIPMENT DEVELOPEREncore Vision Inc.TRANSITION MGR RN Work Phone: Start: 71-18-0409Posxq hysterectomy via vaginal approachDO Musa Evangelista Work Phone: Start: 22-88-4179MylxaoqrlfvdGBJSEMMW LAZ Start: 20-07-7526Mfncrlkh screenDeborah ScallyComment on above:Order Comment: Date of Surgery: [id number] Comment: PERFORMED BY: [place] [id number] [place] [address] PATHOLOGIST CANDLE MOLDER GRACY BARRY M.D.Start: 71-53-9361Uzxyfmwgsjygbtcyb with dilation of urethral stricturePatrick ISAIAS Start: 22-00-1348OiipfimdptfzZG Musa Evangelista Work Phone: Start: 26-30-1872KeosbmltakjEbasvi Jones MD Work Phone: start: 02-66-4034EaxapnrnwpYRMMYFLQ LAZ Start: 83-10-3006Uvsygcxufxnjssrtr with dilation of urethral strictureJOSELYN HAYES BILATERAL MASTECTOMY WITH TISSUE SHEARER SCREEN MEASURER AND TRIMMER INSERTION JOSELYN HAYES bladder suspension 1JJANNETTE HAYES Comment on above:May 20 2011ESWL KIDNEY STONE X2 JOSELYN HAYES H/O: hysterectomyHx of hysterectomyTsering Velez MD Work Phone: lEFT KNEE RECONSTRUCTIVE SURGERYJOSELYN HAYES PARATHYROID GLAND EXCISIONJOSELYN HAYES Part of lobe of thyroid gland (body structure)JOSELYN HAYES Plan of Treatment DateCare ActivityDetailAuthorStart: 17-65-1900Kkrelzzuc for malignant neoplasm of colonNOUT HealthcareStart: 09-34-9884Lnqte BMI ScreeningAdult BMI Screening [facility] SystemStart: 48-81-3259Fcwlqqgjgi ScreeningDepression Screening [facility] SystemStart: 98-81-8470Guinxpb ScreeningTobacco Screening [facility] SystemStart: 03-31-2026 End: 27-61-6637Dwrpvyd encounter xyzobgitd72/13/2026 3:00 PM EDT Office Visit [facility] [address] [place] [address] Logan Lombardi, SAFETY CLOTHING AND EQUIPMENT DEVELOPER-TRANSITION MGR RN [address], [address] [place] [address] [facility] - Family MedicineStart: 24-04-4694Pwzry BMI ScreeningAdult BMI ScreeningProMedica Health SystemStart: 61-53-3444Ayizsyqgks ScreeningDepression ScreeningProMedica Health SystemStart: 67-98-1913Norlgql ScreeningTobacco ScreeningProGreen Cross Hospitalca Health SystemStart: 08-19-2025 End: 08-27-4835Zofrkmd encounter procedureNOMS SWS OBStart: 04-08-2025 End: 42-11-7747Hyonitf encounter procedureProMedica Physicians Internal Medicine - Family MedicineStart: 73-52-3846Mhydy BMI Follow Up PlanAdult BMI Follow Up PlanProTrihealth [facility] SystemStart: 22-68-7333Xijre BMI ScreeningAdult BMI ScreeningProTrihealth M[facility] SystemStart: 59-11-3409Xlbpjmwvht ScreeningDepression ScreeningProTrihealth [facility] SystemStart: 80-41-2560Floubmu ScreeningTobacco ScreeningProTrihealth [facility] SystemStart: 03-18-2025 End: 58-14-3863Bujqgqm encounter iuwxczsep64/30/2025 3:15 PM EDT [facility] [address] [place] [address] Aung Day, DO [address] [facility] [place] [address] ArrivedNO [facility] Comment on above:ArrivedStart: 99-15-7596BXTHR-19 Vaccine ( season) COVID-19 Vaccine ( season)[facility] SystemStart: 02-17-2025 Influenza vaccinationMcCullough-Hyde Memorial Hospital SystemStart: 01-16-2025 End: 52-54-5598Ytidjsy encounter bfezefrav56/31/2025 3:15 PM EDT Office Visit [facility] [address] [email or web address] [place] [id number] Aung Day DO [address] [place] [address] [facility] NB ORTHOStart: 01-08-2025 End: 63-71-0414llddyjdhih20/23/2025 4:00 PM EDT Treatment [facility] [address] [place] [id number] Kelbley, Jennie, SKIDWAY MAN Acute pain of left knee (Primary Dx)[facility] CI PTComment on above:Acute pain of left knee (Primary Dx)Start: 01-07-2025 End: 33-66-0930pwmusjueej82/22/2025 3:30 PM EDT Treatment [facility] [address] [place] [address] Jennie Santos, SKIDWAY MAN [facility] CI PTStart: 12-30-2024 End: 59-07-0328rmnifcdvwyYRAO CI PTComment on above:ArrivedStart: 12-16-2024 End: 31-83-8047ykakuywwyzTBGR CI PTComment on above:ArrivedStart: 12-12-2024 End: 35-78-3735hwcfzxpxxiBUJW CI PTComment on above:ArrivedStart: 12-10-2024 End: 81-33-8319vetbhyiwgs87/24/2025 3:30 PM EDT Treatment [facility] [address] [facility] [[email or web address]] [address] [place] [address] Jennie Santos, SKIDWAY MAN [facility] CI PTStart: 12-05-2024 End: 57-24-6169yjvizckqunWPJF CI PTComment on above:Acute pain of left knee (Primary Dx)Start: 12-03-2024 End: 97-99-6921bcwjwfrlbw62/17/2025 3:30 PM EDT Treatment [facility] [address] [place] [address] Jennie Santos, SKIDWAY MAN [facility] CI PTStart: 11-28-2024 End: 49-75-8945dcmjccvgkk79/12/2025 4:00 PM EDT Evaluation [facility] [address] [email or web address] [address] [place] [address] Lucila Rausch, PT [address] [place] [address] ArrivedNOMS CI PTComment on above:ArrivedStart: 82-30-9213Otkcd BMI Follow Up PlanAdult BMI Follow Up PlanMcCullough-Hyde Memorial Hospital SystemStart: 11-28-2024 Adult BMI ScreeningAdult BMI ScreeningProTrihealth Mccull[facility] Hospital SystemStart: 11-28-2024 Depression ScreeningDepression ScreeningMcCullough-Hyde Memorial Hospital SystemStart: 11-28-2024 Tobacco ScreeningTobacco ScreeningProBluffton Hospitaltart: 04-04-2024 End: 15-35-6854Gxmfbdh encounter lnfvbiwqw30/17/2024 3:20 PM EDT Office Visit [facility] [address] [place] [address] Henok Dumont, SAFETY CLOTHING AND EQUIPMENT DEVELOPER-TRANSITION MGR RN [address] [place] [address] [facility] - Family MedicineStart: 05-34-4587Jdcfkesugyilwa of varicella zoster vaccineZoster (Shingles) Vaccine (1 of 2)[facility] Hospitaltart: 36-63-9600VMZEE-19 Vaccine ()COVID-19 Vaccine ()[facility] SystemStart: 18-63-3722MGMTC-19 Vaccine ()COVID-19 Vaccine ()[facility] Start: 30-94-9634Yaacbijdc vaccinationMcCullough-Hyde Memorial Hospital SystemStart: 07-07-2023 Hospital admissionMary Rutan Hospitaltart: 33-44-0853WnkwtmiofFirelands Regional Medical Center South Campus CenterStart: 58-17-0782DGTWJ-19 Vaccine () COVID-19 Vaccine ()[facility] Hospitaltart: 07-29-2022 End: 61-39-1644DfdysliewMary Rutan Hospitaltart: 17-18-3038Mqglvamoz for malignant neoplasm of cervixPap SmearMcCullough-Hyde Memorial Hospital SystemStart: 1993 DTaP,Tdap and Td Vaccines (1 - Tdap)DTaP,Tdap and Td Vaccines (1 - Tdap) [facility] Hospitaltart: 02-38-4011Slzxc BMI Follow Up PlanAdult BMI Follow Up PlanMcCullough-Hyde Memorial Hospital SystemStart: 43-82-6845Yffilpejj for malignant neoplasm of colonOzarks Community Hospital End: 14-30-5815ETZ panel - Blood by Automated countCBC without diff Lab Routine Blood tests for routine general physical examination 1 Occurrences starting 04/08/2025 until 04/08/2026[facility] SystemComment on above:1 Occurrences starting 04/08/2025 until 04/08/2026 End: 93-43-7949XZG W Auto Differential panel - BloodCBC auto differential Lab Routine Blood tests for routine general physical examination 1 Occurrences starting 04/04/2024 until 04/04/2025[facility] SystemComment on above:1 Occurrences starting 04/04/2024 until 04/04/2025 End: 50-26-4563Ularwkaishgfm metabolic 2000 panel - Serum or PlasmaComprehensive metabolic panel Lab Routine Blood tests for routine general physical examination 1 Occurrences starting 04/04/2024 until 04/04/2025[facility] Work Phone: Comment on above:1 Occurrences starting 04/04/2024 until 04/04/2025 End: 13-12-2330Bhqznopabvtfu metabolic 2000 panel - Serum or PlasmaComprehensive metabolic panel Lab Routine Blood tests for routine general physical examination 1 Occurrences starting 04/08/2025 until 04/08/2026[facility] Healthsource SaginawComment on above:1 Occurrences starting 04/08/2025 until 04/08/2026 Comprehensive metabolic 2000 panel - Serum or PlasmaAv[facility] End: 60-93-9757Yrokxvqafc A1c/Hemoglobin.total in BloodHemoglobin A1c Lab Routine Blood tests for routine general physical examination 1 Occurrences starting 04/04/2024 until 04/04/2025[facility] SouthComment on above:1 Occurrences starting 04/04/2024 until 04/04/2025IGP, APT HPV,RFX 16/18,45IGP, APT HPV,RFX 16/18,45 Lab Routine Encounter for gynecological examination without abnormal finding Encounter for screening for cervical cancer Ordered: 08/12/2024[facility] [employer] Work Phone: comment on above:Ordered: 08/12/2024 End: 48-67-4082Abshz 1996 panel - Serum or PlasmaLipid profile Lab Routine Blood tests for routine general physical examination 1 Occurrences starting 04/04/2024 until 04/04/2025[facility] Health SystemComment on above:1 Occurrences starting 04/04/2024 until 04/04/2025 End: 47-86-4556Utqnj 1996 panel - Serum or PlasmaLipid profile Lab Routine Blood tests for routine general physical examination 1 Occurrences starting 04/08/2025 until 04/08/2026ProC[facility] Health SystemComment on above:1 Occurrences starting 04/08/2025 until 04/08/2026[facility] Work Phone: End: 05-45-4657Mocmyqk profile includes TSH RA6Aysbgvb profile includes TSH FT4 Lab Routine Blood tests for routine general physical examination 1Occurrences starting 04/08/2025 until 04/08/2026ProGreen Cross Hospitalca Work Phone: Comment on above:1 Occurrences starting 04/08/2025 until 04/08/2026 End: 77-64-9879Enfltmzuoyd [Units/volume] in Serum or PlasmaTSH Lab Routine Blood tests for routine general physical examination 1 Occurrences starting 04/04/2024 until 04/04/2025ProC[facility] Health SystemComment on above:1 Occurrences starting 04/04/2024 until 04/04/2025[facility] Immunizations Immunization DateImmunizationNotesCare VhkmggclFtvptbvx65-49-0874cgapspmum virus vaccine, unspecified formulationTsering Velez MD Work Phone: [facility] HospitalRhnkreguao23-73-2548ZPTGM-98 mRNA, Comirnaty (Pfizer)DO Musa Evangelista Work Phone: [facility]04-22-2021SARS-CoV-2 (COVID-19) mRNA BNT-162b2 Kemal HAYES [facility]04-05-2021COVID-19 mRNA, Comirnaty (Pfizer)DO Musa Evangelista Work Phone: [facility]04-01-2021SARS-CoV-2 (COVID-19) mRNA BNT-162b2 vaxJENNIFER LAZ [facility]09-16-2020influenza virus vaccine, unspecified formulationJENNIFER LAZ [facility]09-16-2020Influenza, Injectable, quadrivalent (PF)Logan Deandreotzer SAFETY CLOTHING AND EQUIPMENT DEVELOPER-TRANSITION MGR RN Work Phone: [facility] Center[facility] ([place]) Digital TechnologyHozimz75-22-4845fgkzricic, injectable, quadrivalent, preservative freeValerie Dumont SAFETY CLOTHING AND EQUIPMENT DEVELOPER-TRANSITION MGR RN Work Phone: [facility] CenterLead[facility] ([place]) Digital TechnologyXcnafm20-40-4892okglgqdkz virus vaccine, unspecified formulationJENNIFER LAZ [facility]10-01-2019influenza virus vaccine, live, attenuated, for intranasal use JOSELYN HAYES [facility] [place] 099380-01-2019influenza virus vaccine, unspecified formulationJENNIFER LAZ [facility] HospitalComment on above:Result Comment: 2022-04-27: PATIENT RECIEVED AT WORK 61-36-7821Uqsrnfsgl, Injectable, QuadrivalentElvinle Deandreotzer SAFETY CLOTHING AND EQUIPMENT DEVELOPER-TRANSITION MGR RN Work Phone: [facility] CenterLead[facility] ([place]) Digital TechnologyYiiiqk42-26-3701oxjssmyis, injectable, quadrivalent, contains preservativeValerie Dumont SAFETY CLOTHING AND EQUIPMENT DEVELOPER-TRANSITION MGR RN Work Phone: [facility] Center[facility] ([place] Payers DatePayer CategoryPayerPolicy [id number] Care Other (unspecified) [employer] [place], [place] [id number] [id number] Health [id number] [id number] 2.16.840.1.017824.3.57[id number] 2.16.840.1.211482.3.57[id number] 2.16.840.1.018611.3.57[id number] 2.16.840.1.293193.3.57[id number] 2.16.840.1.624820.3.57[id number] 2.16.840.1.246886.3.579.[id number] 2.16.840.1.130496.3.57[id number] 2.16.840.1.841195.3.57[id number] 2.16.840.1.604408.3.579.2.[id number] 2.16.840.1.145984.3.57[id number] 2.16840.1.003951.3.579.2.6[id number] 2.16.840.1.210914.3.579.2.34786-19-6339Edqeohd83272910 2.16.840.1.341897.3.579.2.45782-87-2836Netdpep64661700 2.16.840.1.192799.3.579.2.45495-45-9214Thikcdg94259354 2.16.840.1.431905.3.579.2.11170-38-6183Fhtxskq71552320 2.840.1.379390.3.579.2.29369-83-7556Qtifrbd20194941 2.840.1.367987.3.579.2.95299-35-7328Akdiiju90392216 2.840.1.444044.3.579.2.93335-74-4792Lbrdssf84034029 2.840.1.004992.3.579.2.455896-94-4098Wwhdxce92702619 2.840.1.429951.3.579.2.483456-28-0573Clxhhxs76951390 2.840.1.107438.3.579.2.866729-90-4916Dwoubwg61573456 2.840.1.200231.3.579.2.163852-63-2115Egdfowp96210621 2.840.1.989977.3.579.2.692927-12-7486Ynipcgu89264193 2.840.1.237983.3.579.2.944566-58-5510Dcevmyu78914273 2.16840.1.184881.3.579.2.644724-68-7899Qglbcjk23094860 2..840.1.533930.3.579.2.796095-54-1917Hzfgtzf49771499 2..840.1.313701.3.579.2.333044-05-3796Dhtpass61705793 2..840.1.795923.3.579.2.624286-34-7517Zogbnbj6226143 2..840.1.422719.3.579.2.924711-56-8561Gwul-mgc 6658thrb-nt83-1l8fyt46-7q4b-j263-9o3ncp25026z65-54-8728Spduhvr520182502 z93f734h-4537-0957-3y9o-842h6[id number] 3o565vm7-kmji-923u-7516-2p85691msr4qLoxzeyw98645264 2..840.1.018873.3.579.2.798Mtfknpr36555314 2.840.1.084598.3.579.2.531 Qseymzf82953323 2.840.1.453186.3.579.2.650Lmaclvf09033951 2.0.1.121852.3.579.2.462 Social History DateTypeDetailFacilityTobacco smoking status NHISUnknown if ever smokedFirelands Regional Medical Center South Campus CtrStart: 83-70-5475Qkb Assigned At [facility] Campustart: 04-24-2020 End: 61-63-8892Exmcxfc smoking statusNever smoked tobacco (finding)[facility] HospitalTobacco smoking statusNeverC[facility] Start: 11-29-2023 End: 32-16-6365Zvi Assigned At [facility] Centertart: 06-22-2023 End: 08-95-7054Bcotkty smoking status NHISEx-smoker (finding)[facility] Hospitaltart: 11-17-2023 End: 37-26-0266CasWifzcv (finding)[facility] Hospitaltart: 11-29-2023 End: 55-27-3523Jctjqxb use and exposureSmokeless tobacco non-userMcCullough-Hyde Memorial Hospital SystemStart: 11-29-2023 End: 49-25-9805Yisygitvs beverage intakeEx-drinker (finding)[facility] SystemStart: 11-29-2023 End: 11-94-4634Mevvkmz of Social functionMcCullough-Hyde Memorial Hospital SystemStart: 02-01-3069Oga assigned at birthNot on fileMcCullough-Hyde Memorial Hospital SystemStart: 48-17-5401Hrigwnk CommentrarePOhioHealth SystemStart: 08-12-2024 End: 09-50-1034Pguamdrqk beverage intakeCurrent drinker of alcohol (finding)[facility] HealthcareHow often to you have a drink containing alcohol?Monthly or lessNOMS HealthcareHow many standard drinks containing alcohol do you have on a typical day?1 or 2N[facility]S HealthcareHow often do you have 6 or more drinks on 1 occasion? Less than monthlyNOMS HealthcareStart: 05-93-9149Kngufdz CommentCaffeine Intake: 1-2 cups of coffee per dayNOUT HealthcareStart: 34-36-7436Pzgbbm identity Identifies as female gender (finding)[facility] HealthcareStart: 94-42-2062Qzvodg orientationHeterosexual (finding)[facility] HealthcareSexual OrientationExec[facility]rology of [facility] History of tobacco useCurrent smokerN[facility]S Healthcare History of tobacco useCigarette SmokerNOUT Healthcare Medical Equipment Procedure CodeEquipment CodeEquipment Original TextEquipment IdentifierDatesPen Frederick 32G X 4 MMStart: 02-15-2023 Goals DatePatient GoalDesired Activity/State Functional Status IneqCnroxbhogjBuokjbIaexfxtp44-27-1455Aicmo score [AUDIT-C]2 04/08/2025 3:44 PM EDT Manjula Abarca CMASelect Medical Specialty Hospital - [facility] SouthQinviq68-89-9282Tfukizpmhq StatusN/A [facility]05-21-2024Functional StatusN/AExec[facility] of [facility]01-19-2024 Functional statusPatient at BaselineThe Jewish Hospital Work Phone: 1(982) 164-14820485142-99-4976Igllfgdavw StatusN/AExec[facility] Wcvmonwa94-58-8039Lbboozdikd StatusN/AExec[facility] Mental Status IkhfJvfbueydutNontriZtxpxufr65-72-1774Yywiafkes functionCognitive Status Patient at BaselineThe [facility] Work Phone: Clinical Notes 04-27-2022 to 04-08-2025 Note Date & AgacZuhcOemefewt94-33-8168 History of Present illness Narrative* Logan Lombardi, SAFETY CLOTHING AND EQUIPMENT DEVELOPER-TRANSITION MGR RN - 04/08/2025 3:20 PM EDT IM PROGRESS [...] Past Medical History: Diagnosis Date Breast cancer ([facility]) double mastectomy Chronic UTI [...] (around 04/08/2026) for Annual physical. Logan AGUILAR [facility] Office: [phone] This note is dictated with the use of M*Modal. Please note that this dictation was completed with computer voice recognition software. Quite often unanticipated grammatical, syntax, homophones, and other interpretive errors are inadvertently transcribed by the computer software. Please disregard these errors. Please excuse any errors that have escaped final proofreading. JEFF Orr 04/08/25 1622 documented in this [facility]10-10-2025 Note From: Jennifer Nick MA ([facility] ([facility] To: Musa Evangelista DO; Sent: 03/28/2025 09:18:47 EDT Subject: FW: Medication Management Due Date/Time: 2025 09:01:00 EDT Caller Name: NICOLETTE EVANGELISTA; Caller Number: , M last visit; 11-16-22 next visit: none Patient matched by Jennifer Nick MA on 03/28/2025 09:17:52 EDT From: [employer] [facility] To: Celia Eason TEJAL Sent: March 28, 2025 8:01:18 AM CDT Subject: Medication Management Due: 2025 12:21:25 AM CDT On Hold Pending Signature Dispensed Drug: atorvastatin (atorvastatin 10 mg oral tablet), TAKE 1 TABLET BY MOUTH DAILY Quantity: 90 tab(s) Days Supply: 90 Refills: 0 Substitutions Allowed Notes from Pharmacy: From: Musa Evangelista DO To: [employer] Sent: 03/28/2025 09:25:40 EDT Subject: FW: Medication Management Submitted: Complete:atorvastatin (atorvastatin 10 mg oral tablet) Signed by Musa Evangelista DO 03/28/2025 09:25:00 EDT Approved with modifications: atorvastatin (ATORVASTATIN 10MG TABLETS) TAKE 1 TABLET BY MOUTH DAILY Qty: 90 tab(s) Days Supply: 90 Refills: 3 Substitutions Allowed Route To Pharmacy - [facility] Signed by Musa Evangelista DO [facility]09-30-2025 History of Present illness Narrative* LYNETTE Martinez [...] Depression: Not at risk (11/20/2024) Received from [employer] PHQ-2 Total Score: 0 REVIEW OF SYMPTOMS: [...] note was created using voice recognition through [employer]. documented in this encounterOzarks Community HospitalMhxlfmfbsg45-77-2579 Evaluation note* Diagnosis Onset Date Resolution Status [...] deficiencyacuteOctober 2024 3:18pmVitamin D deficiencyacuteOctober 2024 3:18pm [facility] Work Phone: 1(855) 160-517207-31-2025 History of Present illness Narrative* LYNETTE Martinez [...] during exercise and has been running on [employer]. She underwent surgery on the left knee in 1995 for correction of recurrent patellar dislocation at [facility] in [place] by Dr. Félix Busby. Since then, she has not experienced any issues until recently. She also reports previous dislocation of her right kneecap, but this has not occurred inrecent years. She does not experience any locking of her knee. She reports no shoulder instability. 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 documented in this encounterOzarks Community HospitalMibljecwms55-69-2133 Hospital Discharge instructions Patient Education 01/14/2025 14:49:16 [...] Treatment for this condition includes: Antibiotic medicine. Sdjx-hoy-seqczjw medicines to treat discomfort. Drinking enough water [...] Follow these instructions at home: Medicines Take evxe-awb-kurojue and prescription medicines only as told by [...] Document Reviewed: 01/15/2021 Elsevier Patient Education 2023 YourNextLeap. Follow Up Care 11/29/2024 15:39:47 With:ISAIAS SMITH, Marshall Conti, URL Address: [facility] [address] [place] [address]- When: Unknown [facility] [...] this condition includes: ??? Antibiotic medicine. ??? Lydv-qco-kmwezfy medicines to treat discomfort. ??? Drinking enough [...] these instructions at home: Medicines ??? Take kkgu-iib-xgwvalf and prescription medicines only as told by [...] Make sure you di (more content not included)...[facility]07-14-2025 History of Present illness Narrative* Lucila [...] click in her knee. Denies N/T. Work: [employer]. Precautions: Subjective reports L knee swelling increases [...] to be instructed in home exercise program. Radiation / Chemistry Technician Goals: To be met in 10 weeks [...] Please sign below. Date: documented in this encounterOzarks Community HospitalEamjzozndh45-28-0174 Evaluation note* Diagnosis Onset Date Resolution Status [...] 2024 3:01pmVitamin D deficiency acuteAugust 2024 3:01pm [facility] Work Phone: 1(700) 660-839306-12-2025 History of Present illness Narrative* Lucila Rausch, [...] click in her knee. Denies N/T. Work: [employer]. Precautions: Subjective Pain: 0/10 today; worst 5/10 [...] to be instructed in home exercise program. Radiation / Chemistry Technician Goals: To be met in 10 weeks [...] Please sign below. Date: documented in this encounterOzarks Community HospitalQvpoqstvja21-24-4188 Hospital Discharge instructions Patient Education 11/25/2024 17:15:51 [...] including vitamins, herbs, eye drops, creams, and pnxh-nbg-xmyxqxc medicines. Any problems you or family members [...] unless your provider tells you to. Taking wryp-lbn-mqydqgy medicines, vitamins, herbs, and supplements. General instructions [...] Follow these instructions at home: Medicines Take vmzy-dds-kgzkqbi and prescription medicines only as told by [...] actions to prevent or treat constipation: ?Take vjtd-gmp-prmzqgw or prescription medicines. ?Eat foods that are [...] provider. Document Revised: 03/30/2023 Document Reviewed: 03/30/2023 FastSoft Patient Education 2023 YourNextLeap. 11/25/2024 17:00:43 Dietary Guidelines to Help Prevent [...] include: ?8 oz (237 mL) of milk, evxzesi-lkoderepmtjo-jnlzs milk, and calcium- fortifiedfruit juice. Calcium-fortified means [...] ?Spinach (cooked), rhubarb, beets, sweet potatoes, and Central [place] chard. ?Peanuts. ?Potato chips, belarusian fries, and baked potatoes with skin on. ?Nuts and nut products. ?Chocolate. If you regularly take a diuretic medicine, make sure to eat at least 1 or 2 servings of fruits or vegetables that are high in potassium each day. These include: ?Avocado. ?Banana. ?Laurel, prune, carrot, or tomato juice. ?Baked potato. [...] magnesium, fish oil, or vitamin B6. Take tjzx-cov-ctrgbnj and prescription medicines only as told by [...] Casseroles. Pizza. Lasagna. Frozen meals. Potato chips. Latvian fries. The items listed above may not [...] provider. Document Revised: 09/15/2022 Document Reviewed: 09/15/2022 FastSoft Patient Education 2023 YourNextLeap. Follow Up Care 05/23/2024 15:39:44 With:ISAIAS SMITH, Marshall Conti, URL Address: [facility] [address] [place] [address]- When: Unknown [facility] Mihir 06-09-2025 NotePatient Education Nephrology Dietary Guidelines [...] ? 8 oz (237 mL) of milk, kfjpfsl-hvicgntzpfij-zgaon milk, and calcium- fortifiedfruit juice. Calcium-fortified means [...] Spinach (cooked), rhubarb, beets, sweet potatoes, and [place] chard. ? Peanuts. ? Potato chips, belarusian fries, and baked potatoes with skin on. ? Nuts and nut products. ? Chocolate. ??? If you regularly take a diuretic medicine, make sure to eat at least 1 or 2 servings of fruits or vegetables that are high in potassium each day. These include: ? Avocado. ? Banana. ? Laurel, prune, carrot, or tomato juice. ? Baked [...] fish oil, or vitamin B6. ??? Take zssh-sqf-lbbfttu and prescription medicines only as told by your health (more content not included)...[facility]06-04-2025 History of Present illness Narrative* Franco [...] Testing No results found. Franco Whitmore DO., [facility] Office: [phone] documented in this encounterSelect [facility]-30-2025 NoteEntered by Joseline Johnson MA on November 15, 2024 10:12:30 EDT From: Joseline Johnson MA To: [facility] Sent: 11/15/2024 10:12:30 EDT Subject: Medication Management Not Approved: Refill not appropriate, PROPOSAL SENT TO PROVIDER FOR SIGNATURE. sertraline (SERTRALINE 100MG TABLETS) TAKE 1 TABLET BY MOUTH DAILY Qty: 90 tab(s) Days Supply: 90 Refills: 0 Substitutions Allowed Route To Pharmacy - [facility] Signed by Joseline Johnson MA From: [facility] To: Celia Eason CNP Sent: November 15, 2024 8:00:51 AM CDT Subject: Medication Management Due: November 16, 2024 12:07:55 AM CDT On Hold Pending Signature Dispensed Drug: sertraline (sertraline 100 mg oral tablet), TAKE 1 TABLET BY MOUTH DAILY Quantity: 90 tab(s) Days Supply: 90 Refills: 0 Substitutions Allowed [id number] Note From: Jennifer Nick MA ([facility] [place] ([facility] [place] To: Celia Eason CNP; Sent: 10/15/2024 09:08:01 EDT Subject: FW: Medication Management Due Date/Time: 10/16/2024 09:00:00 EDT Caller Name: NICOLETTE EVANGELISTA; Caller Number: Christine , M last visit: 11-16-22 next visit: none Patient matched by Jennifer Nick MA on 10/15/2024 09:06:35 EDT From: [facility] To: Celia Eason CNP Sent: October 15, 2024 8:00:37 AM CDT Subject: Medication Management Due: October 16, 2024 12:13:09 AM CDT On Hold Pending Signature Dispensed Drug: atorvastatin (atorvastatin 10 mg oral tablet), TAKE 1 TABLET BY MOUTH DAILY Quantity: 90 tab(s) Days Supply: 90 Refills: 0 Substitutions Allowed Notes from Pharmacy: From: Celia Eason APRN, CNP To: [facility] Sent: 10/15/2024 10:13:41 EDT Subject: FW: Medication Management Submitted: Complete:atorvastatin (atorvastatin 10 mg oral tablet) Signed by Celia Eason APRN, CNP 10/15/2024 10:13:00 EDT Approved with modifications: atorvastatin (ATORVASTATIN 10MG TABLETS) TAKE 1 TABLET BY MOUTH DAILY Qty: 90 tab(s) Days Supply: 90 Refills: 1 Substitutions Allowed Route To Pharmacy - [facility]02-24-2025 History of Present illness Narrative* Tsering Velez MD - 08/12/2024 3:15 PM EST Images from the original note were not included. Tsering Velez MD Obstetrics and Gynecology Patient: Nicolette Evangelista : 1975 (49 y.o.) Yearly Wellness Exam Date: 08/12/2024 Reason for Visit - Chief Complaint Patient presents with Gynecologic Exam LMP: HYST Last Mammogram: Bilateral Mastectomy N/A Last Pap: 10/13/22- neg [place] [facility] [place] Complaints: The patient has a medical [...] or sooner if needed documented in this encounterOzarks Community [id number] Evaluation note* Diagnosis Onset Date Resolution Status [...] deficiencyacuteApril 2024 3:17pmVitamin D deficiencyacuteApril 2024 3:17pm [facility] Work Phone: 1(166) 165-593612-23-2024 Evaluation note* Diagnosis Onset Date Resolution Status [...] acuteFebruary 2024 3:06pmVitamin D deficiencyacuteFebruary 2024 3:06pm [facility] Work Phone: 1(157) 860-918812-05-2024 Hospital Discharge instructions Patient Education 05/23/2024 15:11:20 [...] Treatment for this condition includes: Antibiotic medicine. Cozy-pdl-paeoouy medicines to treat discomfort. Drinking enough water [...] Follow these instructions at home: Medicines Take iely-auz-uervrmk and prescription medicines only as told by [...] provider. Document Revised: 01/10/2021 Document Reviewed: 01/15/2021 [employer] Patient Education 2023 YourNextLeap. Follow Up Care 11/07/2023 15:49:07 With:JOSELYN HAYES PA-C, URL Address: [address] [place] [id number] When: Unknown [facility] 11-18-2024 Note From: Jennifer Nick MA ([facility] ([facility] [place] To: Celia Eason CNP; Sent: 05/06/2024 08:26:34 EST Subject: FW: Medication Management Due Date/Time: 05/06/2024 09:00:00 EST Caller Name: NICOLETTE EVANGELISTA; Caller Number: Christine , Sangeeta last visit: 11-16-22 next visit: none Patient matched by Jennifer Nick MA on 05/06/2024 08:24:53 EST From: [facility] To: Celia Eason CNP Sent: May 04, 2024 8:00:42 AM [employer] Subject: Medication Management Due: May 05, 2024 1:09:30 AM [employer] On Hold Pending Signature Dispensed Drug: atorvastatin (atorvastatin 10 mg oral tablet), TAKE 1 TABLET BY MOUTH DAILY Quantity: 90 tab(s) Days Supply: 90 Refills: 0 Substitutions Allowed Notes from Pharmacy: From: Celia Eason APRN, CNP To: [facility] Sent: 05/06/2024 09:32:22 EST Subject: FW: Medication Management Submitted: Complete:atorvastatin (atorvastatin 10 mg oral tablet) Signed by Celia Eason APRN, CNP 05/06/2024 09:32:00 EST Approved with modifications: atorvastatin (ATORVASTATIN 10MG TABLETS) TAKE 1 TABLET BY MOUTH DAILY Qty: 90 tab(s) Days Supply: 90 Refills: 1 Substitutions Allowed Route To Pharmacy - [facility]10-17-2024 History of Present illness Narrative* Henok Dumont APRN-TEJAL - 04/04/2024 3:20 PM EDT Images from the original note were not included. [address] [place] [id number] SUBJECTIVE: Patient ID: Nicolette Evangelista is a 49 y.o. female. Chief Complaint Patient presents with Annual Exam Presents for annual physical. She is . Works full-time at [employer] She does not smoke or consume alcohol. The following portions of the patient's history were reviewed and updated as appropriate: allergies, current medications, past family history, past medical history, past social history, past surgicalhistory and problem list. Past Surgical History: Procedure Laterality Date BREAST SURGERY HYSTERECTOMY THYROIDECTOMY partial TONSILLECTOMY Past Medical History: Diagnosis Date Breast cancer ([facility]) double mastectomy Chronic UTI [...] her choice. Labs drawn in office today JEWELSMITH is located in [place]. States she had SPARKLE June 2023. ALL QUESTIONS ANSWERED Total time spent was 25 minutes: Preparing to see the patient (e.g., review of tests) Obtaining and/or reviewing separately obtained history Performing a medically appropriate examination and/or evaluation Counseling and educating the patient/family/caregiver Ordering medications, tests, or procedures Follow-up: Annual JEFF Porras 04/04/24 1559 documented in this encounterSelect Medical [facility]ty [facility]09-19-2024 Evaluation note* Diagnosis Onset Date Resolution Status [...] deficiency acuteNov2023 3:22pmVitamin D deficiencyacuteNovember 2023 3:22pm [facility] Work Phone: 1(379) 665-643106-12-2024 History of Present illness Narrative* JEFF Porras - 11/29/2023 2:00 PM EDT Images from the original note were not included. [address] [place] [id number] SUBJECTIVE: Patient ID: Nicolette Evangelista is a [...] Past Medical History: Diagnosis Date Breast cancer ([facility]) double mastectomy Chronic UTI [...] is currently seeing weight loss clinic in [place]. Is taking phentermine 15 mg oral daily [...] JEFF Porras 11/29/23 1504 documented in this encounterNationwide Children's HospitalGlucoSentient Oaklawn [id number] Hospital Discharge instructions Patient Education 11/07/2023 15:50:08 [...] Treatment for this condition includes: Antibiotic medicine. Unis-wcl-wbxaesz medicines to treat discomfort. Drinking enough water [...] Follow these instructions at home: Medicines Take yugn-rey-cggvvpr and prescription medicines only as told by [...] provider. Document Revised: 01/15/2021 Document Reviewed: 01/15/2021 [employer] Patient Education 2022 YourNextLeap. Follow Up Care 10/19/2023 15:34:38 With:JOSELYN HAYES PA-C, URL Address: [address] [place] [address] [phone] When: Unknown Comments:6 mos (no labs) [facility] 12-26-2023 Hospital Discharge instructions Follow Up Care 06/13/2023 14:00:48 With:JOSELYN HAYES PA-C, URL Address: [address] [place] [address] When:Within 4 Month(s) [facility] 12-26-2023 Evaluation note* Encounter Date Diagnosis Assessment [...] Z85.3) May,Thyroid nodule (ICD-10 - E04.1)[facility], [facility]; left thyroid lobe lobectomy incidental focus [...] and make recommendations for long-term supplementation with orvs-fng-xjpwipb formulations or prescription grade repletion. May,MI 28.0-28.9,adult (ICD-10 - Z68.28) May,OtherI have spent 30 minutes with this patient and over 50% of the visit was counseling done by myself, Jessica MARI. [employer] [facility] 10-30-2023 Evaluation note* Encounter Date Diagnosis [...] Z85.3) Mar,Thyroid nodule (ICD-10 - E04.1)[facility], [facility]; left thyroid lobe lobectomy incidental focus [...] and make recommendations for long-term supplementation with tkpd-qbr-otpxwne formulations or prescription grade repletion. Mar,MI 29.0-29.9,adult (ICD-10 - Z68.29) Mar,OtherI have spent 30 minutes with this patient and over 50% of the visit was counseling done by myself, Jessica MARI. [employer] [facility] 08-30-2023 Evaluation note* Encounter Date Diagnosis [...] Z85.3) Jan,Thyroid nodule (ICD-10 - E04.1)[facility], [facility]; left thyroid lobe lobectomy incidental focus [...] and make recommendations for long-term supplementation with rvko-hgf-iqrdkwj formulations or prescription grade repletion. Jan,OtherI have spent 30 minutes with this patient and over 50% of the visit was counseling done by myself, Jessica MARI. [employer] [facility] 08-28-2023 Evaluation note* Encounter Date Diagnosis Assessment Notes Treatment Notes Treatment Clinical Notes Jan, Obesity, unspecified classification, unspecified obesity type, unspecified whether serious comorbidity present (ICD-10 - E66.9) Jan,MI 30.0-30.9,adult (ICD-10 - Z68.30) Jan,OtherSummary of Visit: (A) Much emotional support provided today (B) Discussed including protein with all snacks (C) Reviewed the plate method [employer] [facility] 11-09-2022 Hospital Discharge instructions Patient Education 04/27/2022 14:59:23 Kidney Stones, Xeki-zm-Nhbw Kidney Stones Kidney stones are rock-like masses [...] Follow these instructions at home: Medicines Take oybu-fpc-idddpps and prescription medicines only as told by [...] 11/21/2008 Document Revised: 10/22/2019 Document Reviewed: 10/22/2019 [employer] Patient Education 2020 YourNextLeap. Follow Up Care 02/19/2021 09:16:30 With:JOSELYN AHYES PA-C, URL Address: [address] [place] [address] When: Unknown [facility] evaluation + Plan note Future Appointments Appointment Date:05/02/2023 03:00:00 PM Scheduled Provider:JOSELYN HAYES PA-C Location:[facility] Appointment Type:URO Office Visit [facility] evaluation + Plan note Future Appointments Appointment Date:05/02/2023 03:00:00 PM Scheduled Provider:JOSELYN HAYES PA-C Location:[facility] Appointment Type:URO Office Visit Diagnostic Tests Pending * [facility]ments Appointment Date:08/21/2023 03:00:00 PM Scheduled Provider: Location:[facility] Appointment Type:URO Nurse Visit Appointment Date:10/23/2023 02:45:00 PM Scheduled Provider:Marshall ESPARZA MD Location:[facility] [place] Appointment Type:URO Office Visit [facility] Evaluation + Plan note Future Appointments Appointment Date:10/23/2023 02:45:00 PM Scheduled Provider:Marshall ESPARZA MD Location:[facility] of [facility] Appointment Type:URO Office Visit [facility] evaluation + Plan note Future Appointments Appointment Date:10/23/2023 02:45:00 PM Scheduled Provider:Marshall ESPARZA MD Location:[facility] of [facility] Appointment Type:URO Office Visit Diagnostic Tests Pending * Urine Culture [facility] Appointments Appointment Date:05/14/2024 03:00:00 PM Scheduled Provider:JOSELYN HAYES PA-C Location:[facility] Appointment Type:URO Office Visit [facility] evaluation + Plan note Future Appointments Appointment Date:05/14/2024 03:00:00 PM Scheduled Provider:JOSELYN HAYES PA-C Location:[facility] Appointment Type:URO Office Visit Diagnostic Tests Pending * Urine Culture [facility] Appointments Appointment Date:11/25/2024 03:15:00 PM Scheduled Provider:Marshall ESPARZA MD [facility]O Office Visit [facility] evaluation + Plan note Future Appointments Appointment Date:11/25/2024 03:15:00 PM Scheduled Provider:Marshall ESPARZA MD [facility] Type:[facility]O Office Visit Diagnostic Tests Pending * Urine Culture 05/23/24 [facility] evalusppdy noteNo assessment information available [facility] Work Phone: evaluation noteNo InformationNortBerwick Hospital Center [employer] Other evaluation noteNortBerwick Hospital Center [employer] Other evaluation note* Diagnosis Onset Date Resolution Status BMI 28.0-28.9,adult acuteHyperlipemiaacuteHypothyroidismacuteObesityacutePrediabetesacuteVitamin D deficiencyacuteS/P hysterectomy with oophorectomynoneactive [facility] Work Phone: evaluation note* Diagnosis Onset Date Resolution Status BMI 28.0-28.9,adult acuteHyperlipemiaacuteHypothyroidismacuteObesityacutePrediabetesacuteVitamin D deficiencyacuteS/P hysterectomy with oophorectomynoneactiveBMI 29.0-29.9,adult acuteFamily history of diabetes mellitus (DM)acuteHyperlipemiaacute HypothyroidismacuteObesityacutePrediabetesacuteVitamin B 12 deficiencyacute Vitamin D deficiencyacute [facility] Work Phone: evaluation note* Diagnosis Onset Date Resolution Status BMI 29.0-29.9,adult acuteFamily history of diabetes mellitus (DM)acuteHyperlipemiaacute HypothyroidismacuteObesityacutePrediabetesacuteVitamin B 12 deficiencyacute Vitamin D deficiencyacute [facility] Work Phone: evaluation note* Diagnosis Onset Date Resolution Status BMI 29.0-29.9,adult acuteFamily history of diabetes mellitus (DM)acuteHyperlipemiaacute HypothyroidismacuteObesityacutePrediabetesacuteVitamin B 12 deficiencyacute Vitamin D deficiencyacuteBMI 29.0-29.9,adultacuteFamily history of diabetes mellitus (DM)acuteHyperlipemiaacuteHypothyroidismacuteObesityacutePrediabetes acuteVitamin B 12 deficiencyacuteVitamin D deficiencyacute [facility] Work Phone: evaluation note* Diagnosis Postoperative hypothyroidism- Primary Postsurgical hypothyroidism Mixed hyperlipidemia Anxiety and depression documented in this encounter [facility]* Diagnosis Annual physical exam- Primary Routine general medical examination at a health care facility Blood tests for routine general physical examination Laboratory examination ordered as part of a routine general medical examination documented in this encounter [facility]* Diagnosis Encounter for screening for cervical cancer- Primary Encounter for gynecological examination without abnormal finding Hx of hysterectomy documented in this encounter [facility]* Diagnosis Postoperative hypothyroidism Postsurgical hypothyroidism documented in this encounter [facility]* Diagnosis Degenerative tear of lateral meniscus, left- Primary Herpes zoster without complication documented in this encounter [facility]* Diagnosis Acute pain of left knee- Primary [facility]* Diagnosis Acute pain of left knee- Primary documented in this encounter [facility] HealthcareEvaluation note* Diagnosis Acute pain of left knee- Primary documented in this encounter [facility] HealthcareEvaluation note* Diagnosis Acute pain of left knee- Primary documented in this encounter [facility] HealthcareEvaluation note* Diagnosis Degenerative tear of lateral meniscus, left documented in this encounter [facility]* Diagnosis Left knee pain, unspecified chronicity- Primary documented in this encounter [facility]* Diagnosis Left knee pain, unspecified chronicity documented in this encounter [facility]* Diagnosis Adult wellness visit- Primary Blood tests for routine general physical examination Laboratory examination ordered as part of a routine general medical examination Screening for diabetes mellitus documented in this encounter [facility] SystemHistory general Narrative - Reported* Type Description Date Medical History hypokalemia Medical HistoryhyperlipidemiaMedical HistoryHypothyroidismMedical Historybladder troubleMedical HistorycancerMedical Historyinsulin resistanceMedical History prediabetesMedical Historykidney stonesSurgical HistorytonsillectomySurgical Historybilateral mastectomySurgical Historythyroidectomy, subtotalSurgical Historyknee surgery leftHospitalization HistorySee Above [place] [employer] Other History general Narrative - ReportedNoDepartment of [facility] [employer] Other Hospital course Narrative No data available for this section [facility] Hospital Discharge instructions No data available for this section [facility] Additional Instructions DISCHARGE INSTRUCTIONS [...] in an emergency, call the office at [[phone]]. TODAY -Take it easy the rest of [...] FOLLOW UP -Please call the office at [phone] to arrange an appointment [facility] Discharge instructions Additional Instructions [...] FOLLOW UP -[Please call the office at ([phone]) to make follow appointment before leaving the hospital]. -[2 Weeks] [ ][facility] Work Phone: Instructions* Attachments The following attachments cannot be sent through Care Everywhere. * Depression (Romanian) documented in this encounterProTrihealth [facility] SystemInstructions* Attachments The following attachments cannot be sent through Care Everywhere. * Yearly Physical for Adults (Romanian) documented in this encounterProTrihealth [facility] SystemInstructionsNot on file documented in this encounterMcCullough-[facility] SystemInstructionsNot on file documented in this encounterProTrihealth Mccull[facility] SystemInstructionsNot on file documented in this encounterMcCullough-Hyde [facility] SystemInstructionsNot on file documented in this encounterMcCullough-[facility] SystemProgress note No data available for this section [facility] reason for referral (narrative)No reason for referral information availableMount Carmel Health System Work Phone: Reason for visit Narrative* Rehabilitation - Outpatient (Routine) - AuthorizedSpecialtyDiagnoses / ProceduresReferred By ContactReferred To ContactPhysical Therapy Diagnoses Other meniscus derangements, unspecified lateral meniscus, left knee Procedures RI PHYSICAL THERAPY EVALUATION LOW COMPLEX 20 MINS RI OFFICE/OUTPATIENT [facility] 60 MINUTES Franco Whitmore MD [address] [place] [address] Phone: tel: fax: Lucila Rausch, PT [address] [place] [address] Phone: tel: fax: Referral IDStatusReasonStart DateExpiration DateVisits RequestedVisits [id number]/12/202512/ [facility] HealthcareReason for visit Narrative* Rehabilitation - Outpatient (Routine) - AuthorizedSpecialtyDiagnoses / ProceduresReferred By ContactReferred To ContactPhysical Therapy Diagnoses Other meniscus derangements, unspecified lateral meniscus, left knee Procedures RI PHYSICAL THERAPY EVALUATION LOW COMPLEX 20 MINS RI OFFICE/OUTPATIENT [facility] MDM 60 MINUTES Franco Whitmore MD [address] [place] [address] Phone: tel: fax: Lucila Rausch, PT [address] [place] [address] Phone: tel: fax: Referral IDStatusReasonStart DateExpiration DateVisits RequestedVisits [id number]/12/202512/040 [facility] Healthcare Assessments No Assessments Information Available Chief [...] 02, 2024Team MemberRelationshipSpecialtyStart DateEnd Date Henok Dumont APRN-TRANSITION MGR RN [address] [place] [address] PCP - [facility] Medicine11/29/23Team MemberRelationshipSpecialtyStart DateEnd Date Henok Dumont SAFETY CLOTHING AND EQUIPMENT DEVELOPER-TRANSITION MGR RN [address] [place] [address] PCP - [facility] Medicine11/29/23Team MemberRelationshipSpecialtyStart DateEnd Date Unallocated, Noms MD [address] [place] [address] PCP - Bgodikn77/10/23 Tsering Velez MD [address] [place] [address] Obstetrics and Gynecology03/08/23Team MemberRelationshipSpecialtyStart DateEnd Date Henok Dumont SAFETY CLOTHING AND EQUIPMENT DEVELOPER-TRANSITION MGR RN [address] [place] [address] PCP - [facility] Medicine11/29/23 Team Status: Active Member Role Status Dates Henok Dumont POT PUSHER-C Primary Care Provider Active Team Status: Inactive Member Role Status Dates Viktoria Birmingham APRN Attending Provider Active Start: October 08, 2024 End: October 08, 2024ANG[facility] Care ProviderActiveStart: October 08, 2024 End: October 08, 2024Team MemberRelationshipSpecialtyStart DateEnd Date Henok Dumont APRN-TRANSITION MGR RN [address] [place] [address] [facility]/29/23Team MemberRelationshipSpecialtyStart DateEnd Date Unallocated, Loretta ProviderMD [facility] [place] [address] PCP - Eujlejg11/10/23 Tsering Velez MD [address] [place] [address] Obstetrics and Gynecology03/08/23Team MemberRelationshipSpecialtyStart DateEnd Date Unallocated, Loretta ProviderMD [address] [place], [place] [address] [place] [address] [facility] - Ofvkthl13/10/23 Tsering Velez MD [address] [place] [address] Obstetrics and Gynecology03/08/23Team MemberRelationshipSpecialtyStart DateEnd Date Unallocated, Loretta Vinson MD [facility] [place] [address] [facility] - Yayqwho39/10/23 Tsering Velez MD [address] [place] [address] Obstetrics and Gynecology03/08/23Te MemberRelationshipSpecialtyStart DateEnd Date Unallocated, Loretta Vinson MD [address] [place] [address] PCP - Gdmlqkl44/10/23 Tsering Velez MD [address] [place] [address] Obstetrics and Gynecology03/08/23Te MemberRelationshipSpecialtyStart DateEnd Date Unallocated, Loretta Vinson MD [address] [place] [address] [facility] [facility] - Kzlnbxn04/10/23 Tsering Velez MD [address] [place] [address] Obstetrics and Gynecology03/08/23Te MemberRelationshipSpecialtyStart DateEnd Date Unallocated, Loretta Vinson MD [address] [place] [address] PCP - Dwazjnl20/10/23 Tsering Velez MD [address] [place] [address] Obstetrics and Gynecology03/08/23Te MemberRelationshipSpecialtyStart DateEnd Date Unallocated, Loretta Vinson MD [address] [place] [address] PCP - Phihnji31/10/23 Tsering Velez MD [address] [place] [address] Obstetrics and Gynecology03/08/23Te MemberRelationshipSpecialtyStart DateEnd Date Unallocated, Loretta Vinson MD [address] [facility] [place] [address] PCP - Pycciyx32/10/23 Tsering Velez MD [address] [place] [address] Obstetrics and Gynecology03/08/23 Team Status: Inactive Member [...] 30, 2025Team MemberRelationshipSpecialtyStart DateEnd Date Logan Lombardi, SAFETY CLOTHING AND EQUIPMENT DEVELOPER-TRANSITION MGR RN [address] [place] [address] PCP - [facility]Northern [facility]nal [facility]01/20/25Team MemberRelationshipSpecialtyStart Date End Date Unallocated, Loretta Vinson MD [address] [facility] [place] [address] PCP - Qfurwvx19/10/23 Tsering Velez MD [address] [place] [address] Obstetrics and Gynecology03/08/23Team MemberRelationshipSpecialtyStart DateEnd Date Unallocated, Loretta Vinson MD [address] [facility] [place] [address] PCP - Grnljuc41/10/23 Tsering Velez MD [address] [place] [address] Obstetrics and Gynecology03/08/23Team MemberRelationshipSpecialtyStart DateEnd Date Maria C Logan Joy, SAFETY CLOTHING AND EQUIPMENT DEVELOPER-TRANSITION MGR RN [address] [place] [address] PCP - GeneralInternal Medicine01/20/25 Team Status: Active [...] section and content) DATE CREATED AUTHOR 11/25/[address] [facility] DATE CREATED AUTHOR AUTHOR'S ORGANIZ ATION 11/12/2023 [facility] DATE CREATED AUTHOR AUTHOR'S ORGANIZ ATION 11/18/2023 [facility] DATE CREATED AUTHOR AUTHOR'S ORGANIZ ATION 05/22/2024 [facility] DATE CREATED AUTHOR AUTHOR'S ORGANIZ ATION 05/29/2024 [facility] DATE CREATED AUTHOR AUTHOR'S ORGANIZ ATION 09/12/2024 [facility] DATE CREATED AUTHOR AUTHOR'S ORGANIZ ATION 11/26/2024 [facility] DATE CREATED AUTHOR AUTHOR'S ORGANIZ ATION 01/16/2025 [facility] DATE CREATED AUTHOR AUTHOR'S ORGANIZ ATION 03/24/2025 [facility] DATE CREATED AUTHOR AUTHOR'S ORGANIZ ATION 03/30/2025 [facility] REASON FOR VISIT (unrecogniz ed section [...] BE BASED ON THE PRIMARY CLINICAL RECORDS. [facility] [employer] [facility]. provides no warranty or guarantee of the accuracy or completeness of information in this document.
[2025-04-19 08:24] LABS: Alanine Aminotransferase 33 U/L (14-59); Albumin Globulin Ratio 0.9; Albumin Level 3.5 g/dL (3.4-5.0); Alkaline Phosphatase 83 U/L (46-116); Anion Gap 11.8; Aspartate Amino Transferase 17 U/L (15-37); Blood Urea Nitrogen 23.0 mg/dL (7.0-18.0); Calcium 9.0 mg/dL (8.5-10.1); Carbon Dioxide 32.0 mmol/L (21.0-32.0); Chloride 102 mmol/L (98-107); Cholesterol 224 mg/dL (<=200); Estimated GFR (African America >60 (>=60 mL/min/1.73m^2); Estimated GFR (Non-African Ame >60 (>=60 mL/min/1.73m^2); Globulin 3.8 g/dL; Glucose 103 mg/dL (74-106); HDL Cholesterol 79 mg/dL (40-60); Potassium 4.8 mmol/L (3.5-5.1); Sodium 141 mmol/L (136-145); Total Protein 7.3 g/dL (6.4-8.2); Triglycerides 41 mg/dL (<=150); VLDL CHOLESTEROL 8.2 mg/dL
[2025-04-20 06:38] LABS: Vitamin B12 613 pg/mL (232-1245)
== END 2025-04-19 07:26 | disposition home or self-care (01) ==
LOC: LAB 07:27
PROVIDERS: PCP Nurse Practitioner Family; Visit Provider Nurse Practitioner Family
DX: Z00.00 Encounter for general adult medical examination without abnormal findings (principal); E55.9 Vitamin D deficiency, unspecified; E53.8 Deficiency of other specified B group vitamins; Z83.3 Family history of diabetes mellitus
CPT/HCPCS: 36415; 80053; 80061; 82306; 82607; 84439; 84443; 85025